=== PATIENT | female | born 1960 | race Caucasian/White ===

== ENCOUNTER → 2020-08-16 13:26 | Outpatient (BNVA) | payer OTHER, SELFPAY | PROVIDERS: PCP Internal Medicine; Referring Provider Internal Medicine; Visit Provider Internal Medicine | DX: I82.503 Chronic embolism and thrombosis of unspecified deep veins of lower extremity, bilateral (principal); Z51.81 Encounter for therapeutic drug level monitoring; Z79.01 Long term (current) use of anticoagulants | CPT/HCPCS: 85610; 99211 ==

== ENCOUNTER → 2020-09-13 09:46 | Outpatient (BNVA) | payer OTHER, SELFPAY | PROVIDERS: PCP Internal Medicine; Visit Provider Internal Medicine | DX: I82.503 Chronic embolism and thrombosis of unspecified deep veins of lower extremity, bilateral (principal); Z51.81 Encounter for therapeutic drug level monitoring; Z79.01 Long term (current) use of anticoagulants | CPT/HCPCS: 85610; 99211 ==

== ENCOUNTER → 2020-10-11 09:40 | Outpatient (BNVA) | payer OTHER, SELFPAY | PROVIDERS: PCP Internal Medicine; Visit Provider Internal Medicine | DX: I82.503 Chronic embolism and thrombosis of unspecified deep veins of lower extremity, bilateral (principal); Z51.81 Encounter for therapeutic drug level monitoring; Z79.01 Long term (current) use of anticoagulants | CPT/HCPCS: 85610; 99211 ==

== ENCOUNTER → 2020-10-25 08:12 | Outpatient (BNV) | payer MEDICARE, OTHER, SELFPAY | PROVIDERS: PCP Internal Medicine; Visit Provider Internal Medicine | DX: D75.1 Secondary polycythemia (principal) | CPT/HCPCS: 99213; 99214 ==

== ENCOUNTER 2020-11-01 07:10 | Day surgery (SDC) | payer OTHER, SELFPAY ==
[2020-10-25 13:25] VITALS: BMI 39.5
--- NOTE | 2020-10-29 11:49 | P.CONAN_ITS ---
HPI - Anesthesia Eval Consult details Narrative: 59yo F for Colonoscopy H/O DVT with anticoag. On coumadin. To do Lovenox bridge. [facility] Past Medical History Medical History Arthritis Mccormack esophagus Bronchial asthma Colon polyps Current use of anticoagulant therapy Diabetes DVT (deep venous thrombosis) Elevated cholesterol HTN (hypertension) Low back pain Polycythemia Family History Family History Father Heart disease Afib Heart attack Maternal Grandmother Lung cancer Maternal Grandfather Prostate CA Paternal Grandmother Heart attack Paternal Grandfather Heart attack Surgical History Surgical History History of appendectomy History of delivery History of cholecystectomy History of hysterectomy Hx of colonoscopy Social History Social History Smoking Status: Former smoker Tobacco Type: Cigarette Meds Allergies Allergy/AdvReac Type Severity Reaction Status Date / Time droperidol [From INAPSINE] Allergy Severe Anaphylaxis Verified 11/04/20 10:39 metformin [METFORMIN] Allergy Severe DIZZINESS Verified 11/04/20 10:39 AND NAUSEA penicillin V Allergy Intermediate RASH Verified 11/04/20 10:39 codeine [CODEINE] Allergy Unknown Rash Verified 11/04/20 10:39 egg [EGG] Allergy Unknown Nausea and Verified 11/04/20 10:39 Vomiting latex [LATEX] Allergy Unknown HIVES Verified 11/04/20 10:39 Hydrocodone Bitartrate Allergy Intermediate Rash Uncoded 10/25/20 13:22 Home Medications Medication Instructions Recorded Confirmed Type atorvastatin 2 tab PO DAILY 10/25/20 11/08/20 History celecoxib 1 cap PO BID 10/25/20 11/08/20 History cetirizine 10 mg PO DAILY 10/25/20 11/08/20 History cholecalciferol (vitamin D3) 50 mcg PO DAILY 10/25/20 11/08/20 History [Vitamin D3] dulaglutide [Trulicity] 1.5 mg SUBCUT QWEEK 10/25/20 11/08/20 History empagliflozin [Jardiance] 25 mg PO DAILY 10/25/20 11/08/20 History fluticasone propionate 2 spray INTRANASAL DAILY 10/25/20 11/08/20 History lisinopril 1 tab PO DAILY 10/25/20 11/08/20 History omeprazole 1 cap PO DAILY 10/25/20 11/08/20 History blood sugar diagnostic #10 ea 11/08/20 11/08/20 History Exam Exam Date and Time: October 29, 2020 1149 Height,Weight and Vital Signs: Height 5 ft 9 in Weight 121.563 kg Pertinent Lab Results Pertinent Lab Results: Laboratory Tests 10/25/20 10/25/20 08:42 08:42 WBC 10.8 Hgb 16.0 Hct 47.7 H Plt Count 237 Sodium 135 Potassium 4.8 Chloride 105 Carbon Dioxide 18 L BUN 18 H Creatinine 0.85 Assessment and Plan Assessment Anesthesia Assessment: Chart Reviewed
[2020-11-01 07:23] LABS: Glucose, Whole Blood 167 mg/dL (60-115)
--- NOTE | 2020-11-01 07:26 | P.CONAN_ITS ---
[facility] Past Medical History Medical History Arthritis Mccormack esophagus Bronchial asthma Colon polyps Current use of anticoagulant therapy Diabetes DVT (deep venous thrombosis) Elevated cholesterol HTN (hypertension) Low back pain Polycythemia Family History Family History Father Heart disease Afib Heart attack Maternal Grandmother Lung cancer Maternal Grandfather Prostate CA Paternal Grandmother Heart attack Paternal Grandfather Heart attack Surgical History Surgical History History of appendectomy History of delivery History of cholecystectomy History of hysterectomy Hx of colonoscopy Social History Social History Smoking Status: Former smoker Tobacco Type: Cigarette Smoking Quit Date: 2017 Advance Directives: No Advance Directives Information Provided: No Advance Directives on File: No Meds Allergies Allergy/AdvReac Type Severity Reaction Status Date / Time droperidol [From INAPSINE] Allergy Severe Anaphylaxis Verified 10/25/20 13:22 metformin [METFORMIN] Allergy Severe DIZZINESS Verified 10/25/20 13:22 AND NAUSEA penicillin V Allergy Intermediate RASH Verified 10/25/20 13:22 codeine [CODEINE] Allergy Unknown Rash Verified 10/25/20 13:22 egg [EGG] Allergy Unknown Nausea and Verified 10/25/20 13:22 Vomiting latex [LATEX] Allergy Unknown HIVES Verified 10/25/20 13:22 Hydrocodone Bitartrate Allergy Intermediate Rash Uncoded 10/25/20 13:22 Home Medications Medication Instructions Recorded Confirmed Type atorvastatin 2 tab PO DAILY 10/25/20 10/25/20 History celecoxib 1 cap PO BID 10/25/20 10/25/20 History cetirizine 10 mg PO DAILY 10/25/20 10/25/20 History cholecalciferol (vitamin D3) 50 mcg PO DAILY 10/25/20 10/25/20 History [Vitamin D3] dulaglutide [Trulicity] 1.5 mg SUBCUT QWEEK 10/25/20 10/25/20 History empagliflozin [Jardiance] 25 mg PO DAILY 10/25/20 10/25/20 History fluticasone propionate 2 spray INTRANASAL DAILY 10/25/20 10/25/20 History lisinopril 1 tab PO DAILY 10/25/20 10/25/20 History omeprazole 1 cap PO DAILY 10/25/20 10/25/20 History Exam Exam Date and Time: November 01, [id number] Height,Weight and Vital Signs: Height 5 ft 9 in Weight 121.563 kg Pertinent Lab Results Pertinent Lab Results: Laboratory Tests 11/01/20 07:20 POC Glucose 167 H Airway Mallampati Class: II TM Dist: >3cm Neck ROM: Full Denture: Upper Heart: RRR Lungs: CTA
--- NOTE | 2020-11-01 07:28 | P.CONAN_ITS ---
[facility] Past Medical History Medical History Arthritis Mccormack esophagus Bronchial asthma Colon polyps Current use of anticoagulant therapy Diabetes DVT (deep venous thrombosis) Elevated cholesterol HTN (hypertension) Low back pain Polycythemia Family History Family History Father Heart disease Afib Heart attack Maternal Grandmother Lung cancer Maternal Grandfather Prostate CA Paternal Grandmother Heart attack Paternal Grandfather Heart attack Surgical History Surgical History History of appendectomy History of delivery History of cholecystectomy History of hysterectomy Hx of colonoscopy Social History Social History Smoking Status: Former smoker Tobacco Type: Cigarette Smoking Quit Date: 2017 Advance Directives: No Advance Directives Information Provided: No Advance Directives on File: No Meds Allergies Allergy/AdvReac Type Severity Reaction Status Date / Time droperidol [From INAPSINE] Allergy Severe Anaphylaxis Verified 10/25/20 13:22 metformin [METFORMIN] Allergy Severe DIZZINESS Verified 10/25/20 13:22 AND NAUSEA penicillin V Allergy Intermediate RASH Verified 10/25/20 13:22 codeine [CODEINE] Allergy Unknown Rash Verified 10/25/20 13:22 egg [EGG] Allergy Unknown Nausea and Verified 10/25/20 13:22 Vomiting latex [LATEX] Allergy Unknown HIVES Verified 10/25/20 13:22 Hydrocodone Bitartrate Allergy Intermediate Rash Uncoded 10/25/20 13:22 Home Medications Medication Instructions Recorded Confirmed Type atorvastatin 2 tab PO DAILY 10/25/20 10/25/20 History celecoxib 1 cap PO BID 10/25/20 10/25/20 History cetirizine 10 mg PO DAILY 10/25/20 10/25/20 History cholecalciferol (vitamin D3) 50 mcg PO DAILY 10/25/20 10/25/20 History [Vitamin D3] dulaglutide [Trulicity] 1.5 mg SUBCUT QWEEK 10/25/20 10/25/20 History empagliflozin [Jardiance] 25 mg PO DAILY 10/25/20 10/25/20 History fluticasone propionate 2 spray INTRANASAL DAILY 10/25/20 10/25/20 History lisinopril 1 tab PO DAILY 10/25/20 10/25/20 History omeprazole 1 cap PO DAILY 10/25/20 10/25/20 History Exam Exam Date and Time: November 01, 2020727 Height,Weight and Vital Signs: Height 5 ft 9 in Weight 121.563 kg Pertinent Lab Results Pertinent Lab Results: Laboratory Tests 11/01/20 07:20 POC Glucose 167 H Assessment and Plan Assessment Anesthesia Assessment: Anesthesia Plan Discussed and Chart Reviewed Final Anesthetic Review NPO: Yes ASA Class: III Final Preanesthetic Review: No Changes in Pt Med Stat, Meds/Allgs Chart Reviewed, Consent Obtained/Reviewed and Anes Risks/Benef Reviewed Patient Risk: Intermediate Procedure Risk: Low Anesthetic Plan Anesthetic Plan: MAC: Disposition: Standard PACU
[2020-11-01 07:38] VITALS: BP 154/78; PULSE 96; RESP 18; TEMP 36.2; O2SAT 95
[2020-11-01 07:52] LABS: Prothrombin Time 11.9 SEC (10.8-13.0)
[2020-11-01] MEDS: Lactated Ringers 1,000 ML 100 ML IVCONT (08:06)
[2020-11-01 09:57] VITALS: BP 98/57; PULSE 89; RESP 16; TEMP 37.2; O2SAT 95
--- NOTE | 2020-11-01 10:03 | PM.OP ---
Brief Operative Note Date of Service: 11/01/20 Pre-op diagnosis: Screening Post-op diagnosis: other (Colon polyp, Diverticulosis, Internal hemorrhoids) Procedure: Colonoscopy to cecum and TI with snare polypectomy and placement of 2 Resolution clips on proximal ascending colon polypectomy site Surgeon: Jean Carlos Martínez Anesthesia: MAC Estimated blood loss (mL): 3.0 Pathology: other (A. Proximal ascending colon polyp) Condition: stable Disposition: PACU
[2020-11-01 10:12] VITALS: BP 114/61; PULSE 75; RESP 18; TEMP 36.4; O2SAT 98
--- NOTE | 2020-11-01 10:20 | OP_ITS ---
SURGEON: Jean Carlos Martínez MD INDICATIONS: Full consent has been obtained from her for this, including risks of bleeding and perforation. PREOPERATIVE DIAGNOSIS: POSTOPERATIVE DIAGNOSIS: PROCEDURE PERFORMED: Colonoscopy to the cecum and terminal ileum with snare polypectomy and placement of 2 Resolution clips. ESTIMATED BLOOD LOSS: COMPLICATIONS: ANESTHESIA: Monitored anesthesia care. ASSISTANTS: SPECIMENS: PREOPERATIVE DIAGNOSES: Colorectal cancer screening and personal history of tubular adenoma of the colon. POSTOPERATIVE DIAGNOSES: Colorectal cancer screening and personal history of tubular adenoma of the colon, colon polyp, diverticulosis and internal hemorrhoids. DESCRIPTION OF PROCEDURE: The patient was placed in the left lateral decubitus position. The digital rectal exam revealed no abnormalities. The Olympus video pediatric colonoscope was entered into the rectum and advanced to the cecum with the assistance of abdominal wall pressure. Once in the cecum, I did identify normal-appearing cecal pouch with appendiceal orifice. The terminal ileum was cannulated and appeared normal. The scope was withdrawn back in the colon. The entire cecum appeared normal. The scope was then slowly withdrawn assessing all mucosal surfaces carefully. Preparation was excellent. The ileocecal valve appeared normal. The portion from which the polyp had been removed last year on the lip of the ileocecal valve closest to the ascending colon appeared normal. There was some scar visible, but I did not visualize any sign of residual polyp tissue. In the proximal ascending colon, was an approximately 6 to 8 mm polyp, which was snared and recovered by suction. The polypectomy site appeared clean, without any sign of residual polyp. I did place 2 clips on the area given the fact that she has to go back on her blood thinners. There was no bleeding. The area was irrigated and observed. I did not visualize any other polyps, colitis, nor angiodysplasia. There was a moderate amount of sigmoid diverticulosis. In the rectum, scope was retroflexed visualizing internal hemorrhoids, but no other pathology. The rectal mucosa appeared normal. The scope was straightened out and withdrawn from the patient. She tolerated the procedure well and was returned to the recovery area in stable condition. IMPRESSION: 1. Colon polyp, status post snare polypectomy, and placement of 2 Resolution clips in the proximal ascending colon. 2. Diverticulosis. 3. Internal hemorrhoids. PLAN: The results of the pathology will be checked. Given her previous history and today's findings, I would recommend a repeat colonoscopy in 2 years for further screening. She will otherwise see me on a p.r.n. basis. She was advised to resume her Coumadin at the normal dosage today and resume Lovenox tomorrow morning. She will then follow up with either the Coumadin Clinic or the Hematology Clinic regarding adjustment of the Coumadin and Lovenox as needed. MD MEENU Garcia/BEENA / [id number] MTDD
== END 2020-11-01 11:02 | disposition home or self-care (01) ==
PROVIDERS: Nurse Practitioner; PCP Internal Medicine; Visit Provider Internal Medicine
PROC: 0DJD8ZZ Inspection of Lower Intestinal Tract, Via Natural or Artificial Opening Endoscopic (ICD-10-PCS; CPT 45378; principal; 2020-11-01 08:30)
DX: Z12.11 Encounter for screening for malignant neoplasm of colon (principal); Z86.010 Personal history of colon polyps; D12.2 Benign neoplasm of ascending colon; K57.30 Diverticulosis of large intestine without perforation or abscess without bleeding; K64.8 Other hemorrhoids; K22.70 Barrett's esophagus without dysplasia; I10 Essential (primary) hypertension; E11.9 Type 2 diabetes mellitus without complications; J45.909 Unspecified asthma, uncomplicated; D45 Polycythemia vera; Z79.51 Long term (current) use of inhaled steroids; Z79.01 Long term (current) use of anticoagulants; Z79.84 Long term (current) use of oral hypoglycemic drugs; Z86.718 Personal history of other venous thrombosis and embolism; Z79.899 Other long term (current) drug therapy; Z90.49 Acquired absence of other specified parts of digestive tract; Z88.0 Allergy status to penicillin; Z88.8 Allergy status to other drugs, medicaments and biological substances; Z91.040 Latex allergy status; Z87.891 Personal history of nicotine dependence
CPT/HCPCS: 45385; 36415; 82947; 85610; 88305

== ENCOUNTER → 2020-11-04 10:11 | Outpatient (BNVA) | payer OTHER, SELFPAY | PROVIDERS: PCP Internal Medicine; Visit Provider Internal Medicine | DX: I82.503 Chronic embolism and thrombosis of unspecified deep veins of lower extremity, bilateral (principal); Z79.01 Long term (current) use of anticoagulants; Z51.81 Encounter for therapeutic drug level monitoring | CPT/HCPCS: 85610 ==

== ENCOUNTER → 2020-11-08 10:14 | Outpatient (BNVA) | payer OTHER, SELFPAY | PROVIDERS: PCP Internal Medicine; Visit Provider Internal Medicine | DX: I82.503 Chronic embolism and thrombosis of unspecified deep veins of lower extremity, bilateral (principal); Z51.81 Encounter for therapeutic drug level monitoring; Z79.01 Long term (current) use of anticoagulants | CPT/HCPCS: 85610; 99211 ==

== ENCOUNTER → 2020-11-10 09:15 | Outpatient (BNVA) | payer OTHER, SELFPAY | PROVIDERS: PCP Internal Medicine; Visit Provider Internal Medicine | DX: I82.503 Chronic embolism and thrombosis of unspecified deep veins of lower extremity, bilateral (principal); Z51.81 Encounter for therapeutic drug level monitoring; Z79.01 Long term (current) use of anticoagulants | CPT/HCPCS: 85610; 99211 ==

== ENCOUNTER → 2020-11-17 09:42 | Outpatient (BNVA) | payer OTHER, SELFPAY | PROVIDERS: PCP Internal Medicine; Visit Provider Internal Medicine | DX: I82.503 Chronic embolism and thrombosis of unspecified deep veins of lower extremity, bilateral (principal); Z51.81 Encounter for therapeutic drug level monitoring; Z79.01 Long term (current) use of anticoagulants | CPT/HCPCS: 85610; 99211 ==

== ENCOUNTER → 2020-11-25 09:41 | Outpatient (BNVA) | payer OTHER, SELFPAY | PROVIDERS: PCP Internal Medicine; Visit Provider Internal Medicine | DX: I82.503 Chronic embolism and thrombosis of unspecified deep veins of lower extremity, bilateral (principal); Z51.81 Encounter for therapeutic drug level monitoring; Z79.01 Long term (current) use of anticoagulants | CPT/HCPCS: 85610; 99211 ==

== ENCOUNTER → 2020-12-09 09:13 | Outpatient (BNVA) | payer OTHER, SELFPAY | PROVIDERS: PCP Internal Medicine; Visit Provider Internal Medicine | DX: I82.503 Chronic embolism and thrombosis of unspecified deep veins of lower extremity, bilateral (principal); Z51.81 Encounter for therapeutic drug level monitoring; Z79.01 Long term (current) use of anticoagulants | CPT/HCPCS: 85610; 99211 ==

== ENCOUNTER → 2020-12-30 09:21 | Outpatient (BNVA) | payer OTHER, SELFPAY | PROVIDERS: PCP Internal Medicine; Visit Provider Internal Medicine | DX: I82.503 Chronic embolism and thrombosis of unspecified deep veins of lower extremity, bilateral (principal); Z51.81 Encounter for therapeutic drug level monitoring; Z79.01 Long term (current) use of anticoagulants | CPT/HCPCS: 85610; 99211 ==

== ENCOUNTER → 2021-02-03 09:28 | Outpatient (BNVA) | payer OTHER, SELFPAY | PROVIDERS: PCP Internal Medicine; Visit Provider Internal Medicine | DX: I82.503 Chronic embolism and thrombosis of unspecified deep veins of lower extremity, bilateral (principal); Z51.81 Encounter for therapeutic drug level monitoring; Z79.01 Long term (current) use of anticoagulants | CPT/HCPCS: 85610; 99211 ==

== ENCOUNTER → 2021-02-17 10:17 | Outpatient (BNVA) | payer OTHER, SELFPAY | PROVIDERS: PCP Internal Medicine; Visit Provider Internal Medicine | DX: I82.503 Chronic embolism and thrombosis of unspecified deep veins of lower extremity, bilateral (principal); Z79.01 Long term (current) use of anticoagulants; Z51.81 Encounter for therapeutic drug level monitoring | CPT/HCPCS: 85610; 99211 ==

== ENCOUNTER → 2021-03-03 10:17 | Outpatient (BNVA) | payer OTHER, SELFPAY | PROVIDERS: PCP Internal Medicine; Visit Provider Internal Medicine | DX: I82.503 Chronic embolism and thrombosis of unspecified deep veins of lower extremity, bilateral (principal); Z79.01 Long term (current) use of anticoagulants; Z51.81 Encounter for therapeutic drug level monitoring | CPT/HCPCS: 85610; 99211 ==

== ENCOUNTER → 2021-04-05 09:12 | Outpatient (BNVA) | payer OTHER, SELFPAY | PROVIDERS: PCP Internal Medicine; Visit Provider Internal Medicine | DX: I82.503 Chronic embolism and thrombosis of unspecified deep veins of lower extremity, bilateral (principal); Z51.81 Encounter for therapeutic drug level monitoring; Z79.01 Long term (current) use of anticoagulants | CPT/HCPCS: 85610; 99211 ==

== ENCOUNTER → 2021-04-21 09:41 | Outpatient (BNVA) | payer OTHER, SELFPAY | PROVIDERS: PCP Internal Medicine; Visit Provider Internal Medicine | DX: I82.503 Chronic embolism and thrombosis of unspecified deep veins of lower extremity, bilateral (principal); Z51.81 Encounter for therapeutic drug level monitoring; Z79.01 Long term (current) use of anticoagulants | CPT/HCPCS: 85610; 99211 ==

== ENCOUNTER → 2021-05-11 09:44 | Outpatient (BNVA) | payer OTHER, SELFPAY | PROVIDERS: PCP Internal Medicine; Visit Provider Internal Medicine | DX: I82.503 Chronic embolism and thrombosis of unspecified deep veins of lower extremity, bilateral (principal); Z51.81 Encounter for therapeutic drug level monitoring; Z79.01 Long term (current) use of anticoagulants | CPT/HCPCS: 85610; 99211 ==

== ENCOUNTER → 2021-05-23 09:54 | Outpatient (BNVA) | payer OTHER, SELFPAY | PROVIDERS: PCP Internal Medicine; Visit Provider Internal Medicine | DX: I82.503 Chronic embolism and thrombosis of unspecified deep veins of lower extremity, bilateral (principal); Z51.81 Encounter for therapeutic drug level monitoring; Z79.01 Long term (current) use of anticoagulants | CPT/HCPCS: 85610; 99211 ==

== ENCOUNTER → 2021-06-06 09:47 | Outpatient (BNVA) | payer OTHER, SELFPAY | PROVIDERS: PCP Internal Medicine; Visit Provider Internal Medicine | DX: I82.509 Chronic embolism and thrombosis of unspecified deep veins of unspecified lower extremity (principal); Z51.81 Encounter for therapeutic drug level monitoring; Z79.01 Long term (current) use of anticoagulants | CPT/HCPCS: 85610; 99211 ==

== ENCOUNTER → 2021-06-21 09:50 | Outpatient (BNVA) | payer OTHER, SELFPAY | PROVIDERS: PCP Internal Medicine; Visit Provider Internal Medicine | DX: I82.503 Chronic embolism and thrombosis of unspecified deep veins of lower extremity, bilateral (principal); Z79.01 Long term (current) use of anticoagulants; Z51.81 Encounter for therapeutic drug level monitoring | CPT/HCPCS: 85610; 99211 ==

== ENCOUNTER → 2021-07-19 09:45 | Outpatient (BNVA) | payer OTHER, SELFPAY | PROVIDERS: PCP Internal Medicine; Visit Provider Internal Medicine | DX: I82.503 Chronic embolism and thrombosis of unspecified deep veins of lower extremity, bilateral (principal); Z51.81 Encounter for therapeutic drug level monitoring; Z79.01 Long term (current) use of anticoagulants | CPT/HCPCS: 85610; 99211 ==

== ENCOUNTER → 2021-08-16 09:41 | Outpatient (BNVA) | payer OTHER, SELFPAY | PROVIDERS: PCP Internal Medicine; Visit Provider Internal Medicine | DX: I82.503 Chronic embolism and thrombosis of unspecified deep veins of lower extremity, bilateral (principal); Z51.81 Encounter for therapeutic drug level monitoring; Z79.01 Long term (current) use of anticoagulants | CPT/HCPCS: 85610; 99211 ==

== ENCOUNTER → 2021-09-13 09:44 | Outpatient (BNVA) | payer OTHER, SELFPAY | PROVIDERS: PCP Internal Medicine; Visit Provider Internal Medicine | DX: I82.403 Acute embolism and thrombosis of unspecified deep veins of lower extremity, bilateral (principal); Z51.81 Encounter for therapeutic drug level monitoring; Z79.01 Long term (current) use of anticoagulants | CPT/HCPCS: 85610; 99211 ==

== ENCOUNTER → 2021-10-11 09:58 | Outpatient (BNVA) | payer OTHER, SELFPAY | PROVIDERS: PCP Internal Medicine; Visit Provider Internal Medicine | DX: I82.503 Chronic embolism and thrombosis of unspecified deep veins of lower extremity, bilateral (principal); Z51.81 Encounter for therapeutic drug level monitoring; Z79.01 Long term (current) use of anticoagulants | CPT/HCPCS: 85610; 99211 ==

== ENCOUNTER → 2021-11-09 09:44 | Outpatient (BNVA) | payer OTHER, SELFPAY | PROVIDERS: PCP Internal Medicine; Visit Provider Internal Medicine | DX: I82.503 Chronic embolism and thrombosis of unspecified deep veins of lower extremity, bilateral (principal); Z51.81 Encounter for therapeutic drug level monitoring; Z79.01 Long term (current) use of anticoagulants | CPT/HCPCS: 85610; 99211 ==

== ENCOUNTER → 2021-12-07 09:55 | Outpatient (BNVA) | payer OTHER, SELFPAY | PROVIDERS: PCP Internal Medicine; Visit Provider Internal Medicine | DX: I82.503 Chronic embolism and thrombosis of unspecified deep veins of lower extremity, bilateral (principal); Z51.81 Encounter for therapeutic drug level monitoring; Z79.01 Long term (current) use of anticoagulants | CPT/HCPCS: 85610; 99211 ==

== ENCOUNTER → 2022-01-04 10:03 | Outpatient (BNVA) | payer OTHER, SELFPAY | PROVIDERS: PCP Internal Medicine; Visit Provider Internal Medicine | DX: I82.503 Chronic embolism and thrombosis of unspecified deep veins of lower extremity, bilateral (principal); Z51.81 Encounter for therapeutic drug level monitoring; Z79.01 Long term (current) use of anticoagulants | CPT/HCPCS: 85610; 99211 ==

== ENCOUNTER → 2022-01-18 10:20 | Outpatient (BNVA) | payer OTHER, SELFPAY | PROVIDERS: PCP Internal Medicine; Visit Provider Internal Medicine | DX: I82.503 Chronic embolism and thrombosis of unspecified deep veins of lower extremity, bilateral (principal); Z51.81 Encounter for therapeutic drug level monitoring; Z79.01 Long term (current) use of anticoagulants | CPT/HCPCS: 85610; 99211 ==

== ENCOUNTER → 2022-02-15 10:11 | Outpatient (BNVA) | payer OTHER, SELFPAY | PROVIDERS: PCP Internal Medicine; Visit Provider Internal Medicine | DX: I82.503 Chronic embolism and thrombosis of unspecified deep veins of lower extremity, bilateral (principal); Z51.81 Encounter for therapeutic drug level monitoring; Z79.01 Long term (current) use of anticoagulants | CPT/HCPCS: 85610; 99211 ==

== ENCOUNTER → 2022-03-15 10:05 | Outpatient (BNVA) | payer OTHER, SELFPAY | PROVIDERS: PCP Internal Medicine; Visit Provider Internal Medicine | DX: I82.503 Chronic embolism and thrombosis of unspecified deep veins of lower extremity, bilateral (principal); Z79.01 Long term (current) use of anticoagulants; Z51.81 Encounter for therapeutic drug level monitoring | CPT/HCPCS: 85610; 99211 ==

== ENCOUNTER → 2022-04-12 09:46 | Outpatient (BNVA) | payer OTHER, SELFPAY | PROVIDERS: PCP Internal Medicine; Visit Provider Internal Medicine | DX: I82.503 Chronic embolism and thrombosis of unspecified deep veins of lower extremity, bilateral (principal); Z79.01 Long term (current) use of anticoagulants; Z51.81 Encounter for therapeutic drug level monitoring | CPT/HCPCS: 85610; 99211 ==

== ENCOUNTER 2022-05-04 14:16 | Outpatient (REF) | payer OTHER, SELFPAY | END 2022-05-04 14:17 | disposition home or self-care (01) | LOC: HO.BBR 14:16 | PROVIDERS: Visit Provider Internal Medicine | DX: D75.1 Secondary polycythemia (principal) | CPT/HCPCS: 85018; 99195 ==

== ENCOUNTER → 2022-05-10 09:52 | Outpatient (BNVA) | payer OTHER, SELFPAY | PROVIDERS: PCP Internal Medicine; Visit Provider Internal Medicine | DX: I82.503 Chronic embolism and thrombosis of unspecified deep veins of lower extremity, bilateral (principal); Z51.81 Encounter for therapeutic drug level monitoring; Z79.01 Long term (current) use of anticoagulants | CPT/HCPCS: 85610; 99211 ==

== ENCOUNTER 2022-05-18 13:44 | Outpatient (REF) | payer OTHER, SELFPAY | END 2022-05-18 13:45 | disposition home or self-care (01) | LOC: HO.BBR 13:44 | PROVIDERS: Visit Provider Internal Medicine | DX: D75.1 Secondary polycythemia (principal) | CPT/HCPCS: 85018; 99195 ==

== ENCOUNTER → 2022-06-07 09:49 | Outpatient (BNVA) | payer OTHER, SELFPAY | PROVIDERS: PCP Internal Medicine; Visit Provider Internal Medicine | DX: I82.503 Chronic embolism and thrombosis of unspecified deep veins of lower extremity, bilateral (principal); Z51.81 Encounter for therapeutic drug level monitoring; Z79.01 Long term (current) use of anticoagulants | CPT/HCPCS: 85610; 99211 ==

== ENCOUNTER → 2022-07-05 09:52 | Outpatient (BNVA) | payer OTHER, SELFPAY | PROVIDERS: PCP Internal Medicine; Visit Provider Internal Medicine | DX: I82.503 Chronic embolism and thrombosis of unspecified deep veins of lower extremity, bilateral (principal); Z51.81 Encounter for therapeutic drug level monitoring; Z79.01 Long term (current) use of anticoagulants | CPT/HCPCS: 85610; 99211 ==

== ENCOUNTER → 2022-08-03 11:03 | Outpatient (BNVA) | payer OTHER, SELFPAY | PROVIDERS: PCP Internal Medicine; Visit Provider Internal Medicine | DX: I82.503 Chronic embolism and thrombosis of unspecified deep veins of lower extremity, bilateral (principal); Z51.81 Encounter for therapeutic drug level monitoring; Z79.01 Long term (current) use of anticoagulants | CPT/HCPCS: 85610; 99211 ==

== ENCOUNTER → 2022-08-23 09:49 | Outpatient (BNVA) | payer OTHER, SELFPAY | PROVIDERS: PCP Internal Medicine; Visit Provider Internal Medicine | DX: I82.503 Chronic embolism and thrombosis of unspecified deep veins of lower extremity, bilateral (principal); Z79.01 Long term (current) use of anticoagulants; Z51.81 Encounter for therapeutic drug level monitoring | CPT/HCPCS: 85610; 99211 ==

== ENCOUNTER → 2022-09-06 09:47 | Outpatient (BNVA) | payer OTHER, SELFPAY | PROVIDERS: PCP Internal Medicine; Visit Provider Internal Medicine | DX: I82.503 Chronic embolism and thrombosis of unspecified deep veins of lower extremity, bilateral (principal); Z51.81 Encounter for therapeutic drug level monitoring; Z79.01 Long term (current) use of anticoagulants | CPT/HCPCS: 85610; 99211 ==

== ENCOUNTER → 2022-09-20 09:36 | Outpatient (BNVA) | payer OTHER, SELFPAY | PROVIDERS: PCP Internal Medicine; Visit Provider Internal Medicine | DX: I82.503 Chronic embolism and thrombosis of unspecified deep veins of lower extremity, bilateral (principal); Z51.81 Encounter for therapeutic drug level monitoring; Z79.01 Long term (current) use of anticoagulants | CPT/HCPCS: 85610; 99211 ==

== ENCOUNTER → 2022-10-04 09:56 | Outpatient (BNVA) | payer OTHER, SELFPAY | PROVIDERS: PCP Internal Medicine; Visit Provider Internal Medicine | DX: I82.503 Chronic embolism and thrombosis of unspecified deep veins of lower extremity, bilateral (principal); Z51.81 Encounter for therapeutic drug level monitoring; Z79.01 Long term (current) use of anticoagulants | CPT/HCPCS: 85610; 99211 ==

== ENCOUNTER → 2022-10-25 10:11 | Outpatient (BNVA) | payer OTHER, SELFPAY | PROVIDERS: PCP Internal Medicine; Visit Provider Internal Medicine | DX: I82.503 Chronic embolism and thrombosis of unspecified deep veins of lower extremity, bilateral (principal); Z79.01 Long term (current) use of anticoagulants; Z51.81 Encounter for therapeutic drug level monitoring | CPT/HCPCS: 85610; 99211 ==

== ENCOUNTER → 2022-11-22 09:47 | Outpatient (BNVA) | payer OTHER, SELFPAY | PROVIDERS: PCP Internal Medicine; Visit Provider Internal Medicine | DX: I82.503 Chronic embolism and thrombosis of unspecified deep veins of lower extremity, bilateral (principal); Z51.81 Encounter for therapeutic drug level monitoring; Z79.01 Long term (current) use of anticoagulants | CPT/HCPCS: 85610; 99211 ==

== ENCOUNTER → 2022-12-20 10:04 | Outpatient (BNVA) | payer OTHER, SELFPAY | PROVIDERS: PCP Internal Medicine; Visit Provider Internal Medicine | DX: I82.503 Chronic embolism and thrombosis of unspecified deep veins of lower extremity, bilateral (principal); Z51.81 Encounter for therapeutic drug level monitoring; Z79.01 Long term (current) use of anticoagulants | CPT/HCPCS: 85610; 99211 ==

== ENCOUNTER → 2023-01-17 10:04 | Outpatient (BNVA) | payer OTHER, SELFPAY | PROVIDERS: PCP Internal Medicine; Visit Provider Internal Medicine | DX: I82.503 Chronic embolism and thrombosis of unspecified deep veins of lower extremity, bilateral (principal); Z51.81 Encounter for therapeutic drug level monitoring; Z79.01 Long term (current) use of anticoagulants | CPT/HCPCS: 85610; 99211 ==

== ENCOUNTER → 2023-02-14 09:52 | Outpatient (BNVA) | payer OTHER, SELFPAY | PROVIDERS: PCP Internal Medicine; Visit Provider Internal Medicine | DX: I82.503 Chronic embolism and thrombosis of unspecified deep veins of lower extremity, bilateral (principal); Z51.81 Encounter for therapeutic drug level monitoring; Z79.01 Long term (current) use of anticoagulants | CPT/HCPCS: 85610; 99211 ==

== ENCOUNTER → 2023-03-15 09:40 | Outpatient (BNVA) | payer OTHER, SELFPAY | PROVIDERS: PCP Internal Medicine; Visit Provider Internal Medicine | DX: I82.503 Chronic embolism and thrombosis of unspecified deep veins of lower extremity, bilateral (principal); Z51.81 Encounter for therapeutic drug level monitoring; Z79.01 Long term (current) use of anticoagulants | CPT/HCPCS: 85610; 99211 ==

== ENCOUNTER → 2023-04-11 09:58 | Outpatient (BNVA) | payer OTHER, SELFPAY | PROVIDERS: PCP Internal Medicine; Visit Provider Internal Medicine | DX: I82.503 Chronic embolism and thrombosis of unspecified deep veins of lower extremity, bilateral (principal); Z51.81 Encounter for therapeutic drug level monitoring; Z79.01 Long term (current) use of anticoagulants | CPT/HCPCS: 85610; 99211 ==

== ENCOUNTER → 2023-05-09 09:41 | Outpatient (BNVA) | payer OTHER, SELFPAY | PROVIDERS: PCP Internal Medicine; Visit Provider Internal Medicine | DX: Z51.81 Encounter for therapeutic drug level monitoring (principal); Z79.01 Long term (current) use of anticoagulants; I82.503 Chronic embolism and thrombosis of unspecified deep veins of lower extremity, bilateral | CPT/HCPCS: 85610; 99211 ==

== ENCOUNTER 2023-06-06 09:47 | Outpatient (AMB) | payer OTHER, SELFPAY ==
--- NOTE | 2023-06-06 10:04 | MHC.OFFVISCO ---
Intake Intake Visit Reasons: Anticoagulation Allergies droperidol [From INAPSINE] Allergy (Severe, Verified 06/06/23 10:00) Anaphylaxis metformin [METFORMIN] Allergy (Severe, Verified 06/06/23 10:00) DIZZINESS AND NAUSEA penicillin V Allergy (Intermediate, Verified 06/06/23 10:00) RASH codeine [CODEINE] Allergy (Unknown, Verified 06/06/23 10:00) Rash egg [EGG] Allergy (Unknown, Verified 06/06/23 10:00) Nausea and Vomiting latex [LATEX] Allergy (Unknown, Verified 06/06/23 10:00) HIVES Hydrocodone Bitartrate Allergy (Intermediate, Uncoded 06/06/23 10:00) Rash Medication List - Last Reconciled 06/06/23 by Gianna Heard RN ammonium lactate 12% 1 appl topical BID atorvastatin 40 mg PO DAILY blood sugar diagnostic As directed celecoxib 1 cap PO BID cetirizine 10 mg PO DAILY cholecalciferol (vitamin D3) (Vitamin D3) 50 mcg PO DAILY dulaglutide (Trulicity) 3 mg subcut QWEEK empagliflozin 25 mg PO DAILY fluticasone propionate 50 mcg/actuation 2 sprays intranasal DAILY lisinopril 10 mg PO DAILY omeprazole 1 cap PO DAILY urea 20% 20 appl topical DAILY warfarin See Protocol 5MG X4DAYS/7.5MG MWF; Nursing Note INR: 2.2- in therapeutic range Medications and supplements reviewed- no changes No changes in health, diet, medications, or supplements, Denies any signs and symptoms of bleeding or bruising or clotting. Bleeding, bruising, clotting discussed Nutritional guidance given Dose: 7.5mg x 3, 5mg x 4 F/U INR: 4 weeks Patient verbalizes understanding of instructions given Anti-Coag Initial Assessment Social Hx Patient Tobacco Use Status: Former Tobacco user Quit Date: 10/25/2018 Smoking packs per day: 1 alcohol intake: former Alcohol intake frequency: former alcohol drinker Coding Level of Care Code Est Patient Level 1 Diagnoses Current use of anticoagulant therapy Z79.01 Assessment & Plan Assessment & Plan (1) Current use of anticoagulant therapy: Code(s): Z79.01 - [facility] (current) use of anticoagulants
[2023-06-06 10:06] LABS: Prothrombin Time Whole Bld POC 25.9 sec (11.1-13.5); ~PT, ~INR - Anti Coag Clinic 2.2 (0.9-1.1)
== END 2023-06-06 10:29 | disposition home or self-care (01) ==
LOC: HO.ACS 09:47
PROVIDERS: PCP Internal Medicine; Visit Provider Internal Medicine
DX: Z79.01 Long term (current) use of anticoagulants (principal)

== ENCOUNTER → 2023-06-06 09:47 | Outpatient (BNVA) | payer OTHER, SELFPAY | PROVIDERS: PCP Internal Medicine; Visit Provider Internal Medicine | DX: Z51.81 Encounter for therapeutic drug level monitoring (principal); Z79.01 Long term (current) use of anticoagulants; I82.503 Chronic embolism and thrombosis of unspecified deep veins of lower extremity, bilateral | CPT/HCPCS: 85610; 99211 ==

== ENCOUNTER 2023-07-04 09:38 | Outpatient (AMB) | payer OTHER, SELFPAY ==
[2023-07-04 09:48] LABS: Prothrombin Time Whole Bld POC 21.9 sec (11.1-13.5); ~PT, ~INR - Anti Coag Clinic 1.8 (0.9-1.1)
--- NOTE | 2023-07-04 09:53 | MHC.OFFVISCO ---
Intake Intake Visit Reasons: Anticoagulation Allergies droperidol [From INAPSINE] Allergy (Severe, Verified 07/04/23 09:41) Anaphylaxis metformin [METFORMIN] Allergy (Severe, Verified 07/04/23 09:41) DIZZINESS AND NAUSEA penicillin V Allergy (Intermediate, Verified 07/04/23 09:41) RASH codeine [CODEINE] Allergy (Unknown, Verified 07/04/23 09:41) Rash egg [EGG] Allergy (Unknown, Verified 07/04/23 09:41) Nausea and Vomiting latex [LATEX] Allergy (Unknown, Verified 07/04/23 09:41) HIVES Hydrocodone Bitartrate Allergy (Intermediate, Uncoded 06/06/23 10:00) Rash Medication List - Last Reconciled 07/04/23 by Rebecca Crook RN ammonium lactate 12% 1 appl topical BID atorvastatin 40 mg PO DAILY blood sugar diagnostic As directed celecoxib 1 cap PO BID cetirizine 10 mg PO DAILY cholecalciferol (vitamin D3) (Vitamin D3) 50 mcg PO DAILY dulaglutide (Trulicity) 3 mg subcut QWEEK empagliflozin 25 mg PO DAILY fluticasone propionate 50 mcg/actuation 2 sprays intranasal DAILY lisinopril 10 mg PO DAILY omeprazole 1 cap PO DAILY urea 20% 20 appl topical DAILY warfarin See Protocol 5MG X4DAYS/7.5MG MWF; Nursing Note NO CP,SOB,DIET/MED CHANGES,FALLS OR SX OF BLEEDING. BOOST TO 10MGM TODAY THEN RESUME USUAL DOSE AND FOLLOW-UP IN 4 WEEKS. GOOD UNDERSTANDING OF DOSING INSTR. Anti-Coag Initial Assessment Social Hx Patient Tobacco Use Status: Former Tobacco user Quit Date: 10/25/2018 Smoking packs per day: 1 alcohol intake: former Alcohol intake frequency: former alcohol drinker Coding Level of Care Code Est Patient Level 1 Diagnoses Current use of anticoagulant therapy Z79.01 Assessment & Plan Assessment & Plan (1) Current use of anticoagulant therapy: Code(s): Z79.01 - [facility] (current) use of anticoagulants
== END 2023-07-04 09:55 | disposition home or self-care (01) ==
LOC: HO.ACS 09:38
PROVIDERS: PCP Internal Medicine; Visit Provider Internal Medicine
DX: Z79.01 Long term (current) use of anticoagulants (principal)

== ENCOUNTER → 2023-07-04 09:38 | Outpatient (BNVA) | payer OTHER, SELFPAY | PROVIDERS: PCP Internal Medicine; Visit Provider Internal Medicine | DX: I82.503 Chronic embolism and thrombosis of unspecified deep veins of lower extremity, bilateral (principal); Z51.81 Encounter for therapeutic drug level monitoring; Z79.01 Long term (current) use of anticoagulants | CPT/HCPCS: 85610; 99211 ==

== ENCOUNTER 2023-08-01 09:44 | Outpatient (AMB) | payer OTHER, SELFPAY ==
--- NOTE | 2023-08-01 09:53 | MHC.OFFVISCO ---
Intake Intake Visit Reasons: Anticoagulation Allergies droperidol [From INAPSINE] Allergy (Severe, Verified 08/01/23 09:49) Anaphylaxis metformin [METFORMIN] Allergy (Severe, Verified 08/01/23 09:49) DIZZINESS AND NAUSEA penicillin V Allergy (Intermediate, Verified 08/01/23 09:49) RASH codeine [CODEINE] Allergy (Unknown, Verified 08/01/23 09:49) Rash egg [EGG] Allergy (Unknown, Verified 08/01/23 09:49) Nausea and Vomiting latex [LATEX] Allergy (Unknown, Verified 08/01/23 09:49) HIVES Hydrocodone Bitartrate Allergy (Intermediate, Uncoded 08/01/23 09:49) Rash Medication List - Last Reconciled 08/01/23 by Gianna Heard RN ammonium lactate 12% 1 appl topical BID atorvastatin 40 mg PO DAILY blood sugar diagnostic As directed celecoxib 1 cap PO BID cetirizine 10 mg PO DAILY cholecalciferol (vitamin D3) (Vitamin D3) 50 mcg PO DAILY dulaglutide (Trulicity) 3 mg subcut QWEEK empagliflozin 25 mg PO DAILY fluticasone propionate 50 mcg/actuation 2 sprays intranasal DAILY lisinopril 10 mg PO DAILY omeprazole 1 cap PO DAILY urea 20% 20 appl topical DAILY warfarin See Protocol 5MG X4DAYS/7.5MG MWF; Nursing Note INR: 2.4- in therapeutic range Medications and supplements reviewed No changes in health, diet, medications, or supplements, Denies any signs and symptoms of bleeding or bruising or clotting. Bleeding, bruising, clotting discussed Nutritional guidance given Dose: 7.5mg x 3, 5mg x 4 F/U INR: 4 weeks Patient verbalizes understanding of instructions given pt states colonoscopy scheduled for 10/26/23- she states per hematology she does not require lovenox and will be a 3 day hold of warfarin Anti-Coag Initial Assessment Social Hx Patient Tobacco Use Status: Former Tobacco user Quit Date: 10/25/2018 Smoking packs per day: 1 alcohol intake: former Alcohol intake frequency: former alcohol drinker Coding Level of Care Code Est Patient Level 1 Diagnoses Current use of anticoagulant therapy Z79.01 Results AMB INR Fingerstick AMB INR Fingerstick 2.4 Last Edit by Gianna Heard RN on 08/01/23 09:55 Assessment & Plan Assessment & Plan (1) Current use of anticoagulant therapy: Code(s): Z79.01 - [facility] (current) use of anticoagulants
[2023-08-01 09:55] LABS: Prothrombin Time Whole Bld POC 28.7 sec (11.1-13.5); ~PT, ~INR - Anti Coag Clinic 2.4 (0.9-1.1)
== END 2023-08-01 10:14 | disposition home or self-care (01) ==
LOC: HO.ACS 09:44
PROVIDERS: PCP Internal Medicine; Visit Provider Internal Medicine
DX: Z79.01 Long term (current) use of anticoagulants (principal)

== ENCOUNTER → 2023-08-01 09:44 | Outpatient (BNVA) | payer OTHER, SELFPAY | PROVIDERS: PCP Internal Medicine; Visit Provider Internal Medicine | DX: I82.503 Chronic embolism and thrombosis of unspecified deep veins of lower extremity, bilateral (principal); Z51.81 Encounter for therapeutic drug level monitoring; Z79.01 Long term (current) use of anticoagulants | CPT/HCPCS: 85610; 99211 ==

== ENCOUNTER 2023-08-29 09:41 | Outpatient (AMB) | payer OTHER, SELFPAY ==
--- NOTE | 2023-08-29 10:12 | MHC.OFFVISCO ---
Intake Intake Visit Reasons: Anticoagulation Allergies droperidol [From INAPSINE] Allergy (Severe, Verified 08/29/23 10:03) Anaphylaxis metformin [METFORMIN] Allergy (Severe, Verified 08/29/23 10:03) DIZZINESS AND NAUSEA penicillin V Allergy (Intermediate, Verified 08/29/23 10:03) RASH codeine [CODEINE] Allergy (Unknown, Verified 08/29/23 10:03) Rash egg [EGG] Allergy (Unknown, Verified 08/29/23 10:03) Nausea and Vomiting latex [LATEX] Allergy (Unknown, Verified 08/29/23 10:03) HIVES Hydrocodone Bitartrate Allergy (Intermediate, Uncoded 08/29/23 10:03) Rash Medication List - Last Reconciled 08/29/23 by Gianna Heard RN ammonium lactate 12% 1 appl topical BID atorvastatin 40 mg PO DAILY blood sugar diagnostic As directed celecoxib 1 cap PO BID cetirizine 10 mg PO DAILY cholecalciferol (vitamin D3) (Vitamin D3) 50 mcg PO DAILY dulaglutide (Trulicity) 3 mg subcut QWEEK empagliflozin 25 mg PO DAILY fluticasone propionate 50 mcg/actuation 2 sprays intranasal DAILY lisinopril 10 mg PO DAILY omeprazole 1 cap PO DAILY urea 20% 20 appl topical DAILY warfarin See Protocol 5MG X4DAYS/7.5MG MWF; Nursing Note INR: 2.6- in therapeutic range Medications and supplements reviewed- pt stopped zyrtec, started claritin for allergies- no interaction with warfarin per micromedex No changes in health, diet, medications, or supplements, Denies any signs and symptoms of bleeding or bruising or clotting. Bleeding, bruising, clotting discussed Nutritional guidance given Dose: 5mg x 4, 7.5mg x 3 F/U INR: 4 weeks Patient verbalizes understanding of instructions given upcoming colonoscopy on 10/26/23- pt states 3 day hold of warfarin and no lovenox bridge per dr quevedo Anti-Coag Initial Assessment Social Hx Patient Tobacco Use Status: Former Tobacco user Quit Date: 10/25/2018 Smoking packs per day: 1 alcohol intake: former Alcohol intake frequency: former alcohol drinker Coding Level of Care Code Est Patient Level 1 Diagnoses Current use of anticoagulant therapy Z79.01 Assessment & Plan Assessment & Plan (1) Current use of anticoagulant therapy: Code(s): Z79.01 - [facility] (current) use of anticoagulants Medications: New loratadine (Claritin) 10 mg PO DAILY
[2023-08-29 10:13] LABS: Prothrombin Time Whole Bld POC 30.7 sec (11.1-13.5); ~PT, ~INR - Anti Coag Clinic 2.6 (0.9-1.1)
== END 2023-08-29 10:18 | disposition home or self-care (01) ==
LOC: HO.ACS 09:41
PROVIDERS: PCP Internal Medicine; Visit Provider Internal Medicine
DX: Z79.01 Long term (current) use of anticoagulants (principal)

== ENCOUNTER → 2023-08-29 09:41 | Outpatient (BNVA) | payer OTHER, SELFPAY | PROVIDERS: PCP Internal Medicine; Visit Provider Internal Medicine | DX: I82.503 Chronic embolism and thrombosis of unspecified deep veins of lower extremity, bilateral (principal); Z51.81 Encounter for therapeutic drug level monitoring; Z79.01 Long term (current) use of anticoagulants | CPT/HCPCS: 85610; 99211 ==

== ENCOUNTER 2023-09-26 09:33 | Outpatient (AMB) | payer OTHER, SELFPAY ==
--- NOTE | 2023-09-26 09:46 | MHC.OFFVISCO ---
Intake Intake Visit Reasons: Anticoagulation Allergies droperidol [From INAPSINE] Allergy (Severe, Verified 09/26/23 09:39) Anaphylaxis metformin [METFORMIN] Allergy (Severe, Verified 09/26/23 09:39) DIZZINESS AND NAUSEA penicillin V Allergy (Intermediate, Verified 09/26/23 09:39) RASH codeine [CODEINE] Allergy (Unknown, Verified 09/26/23 09:39) Rash egg [EGG] Allergy (Unknown, Verified 09/26/23 09:39) Nausea and Vomiting latex [LATEX] Allergy (Unknown, Verified 09/26/23 09:39) HIVES Hydrocodone Bitartrate Allergy (Intermediate, Uncoded 09/26/23 09:39) Rash Medication List - Last Reconciled 09/26/23 by Gianna Heard RN ammonium lactate 12% 1 appl topical BID atorvastatin 40 mg PO DAILY blood sugar diagnostic As directed celecoxib 1 cap PO BID cholecalciferol (vitamin D3) (Vitamin D3) 50 mcg PO DAILY dulaglutide (Trulicity) 3 mg subcut QWEEK empagliflozin 25 mg PO DAILY fluticasone propionate 50 mcg/actuation 2 sprays intranasal DAILY loratadine (Claritin) 10 mg PO DAILY omeprazole 1 cap PO DAILY urea 20% 20 appl topical DAILY warfarin See Protocol 5MG X4DAYS/7.5MG MWF; Nursing Note INR: 2.3- in therapeutic range of 2-3 Medications and supplements reviewed- lisinopril reduced to 5mg daily- no interaction with warfarin per micromedex No changes in health, diet, medications, or supplements, Denies any signs and symptoms of bleeding or bruising or clotting. Bleeding, bruising, clotting discussed Nutritional guidance given Dose: 7.5mg x 3, 5mg x 4 F/U INR: mon 10/22/23 Patient verbalizes understanding of instructions given pt states colonoscopy on 10/26/23- 3 day hold of warfarin and no lovenox per hematology Anti-Coag Initial Assessment Social Hx Patient Tobacco Use Status: Former Tobacco user Quit Date: 10/25/2018 Smoking packs per day: 1 alcohol intake: former Alcohol intake frequency: former alcohol drinker Coding Level of Care Code Est Patient Level 1 Diagnoses Current use of anticoagulant therapy Z79.01 Results AMB INR Fingerstick AMB INR Fingerstick 2.3 Last Edit by Gianna Heard RN on 09/26/23 09:48 Assessment & Plan Assessment & Plan (1) Current use of anticoagulant therapy: Code(s): Z79.01 - 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
[2023-09-27 13:34] LABS: Prothrombin Time Whole Bld POC 27.9 sec (11.1-13.5); ~PT, ~INR - Anti Coag Clinic 2.3 (0.9-1.1)
== END 2023-09-26 09:57 | disposition home or self-care (01) ==
LOC: HO.ACS 09:33
PROVIDERS: PCP Internal Medicine; Visit Provider Internal Medicine
DX: Z79.01 Long term (current) use of anticoagulants (principal)

== ENCOUNTER → 2023-09-26 09:33 | Outpatient (BNVA) | payer OTHER, SELFPAY | PROVIDERS: PCP Internal Medicine; Visit Provider Internal Medicine | DX: I82.503 Chronic embolism and thrombosis of unspecified deep veins of lower extremity, bilateral (principal); Z51.81 Encounter for therapeutic drug level monitoring; Z79.01 Long term (current) use of anticoagulants | CPT/HCPCS: 85610; 99211 ==

== ENCOUNTER 2023-10-22 10:58 | Outpatient (AMB) | payer OTHER, SELFPAY ==
[2023-10-22 11:19] LABS: Prothrombin Time Whole Bld POC 19.8 sec (11.1-13.5); ~PT, ~INR - Anti Coag Clinic 1.6 (0.9-1.1)
--- NOTE | 2023-10-22 11:30 | MHC.OFFVISCO ---
Intake Intake Visit Reasons: Anticoagulation Allergies droperidol [From INAPSINE] Allergy (Severe, Verified 10/22/23 11:10) Anaphylaxis metformin [METFORMIN] Allergy (Severe, Verified 10/22/23 11:10) DIZZINESS AND NAUSEA penicillin V Allergy (Intermediate, Verified 10/22/23 11:10) RASH codeine [CODEINE] Allergy (Unknown, Verified 10/22/23 11:10) Rash egg [EGG] Allergy (Unknown, Verified 10/22/23 11:10) Nausea and Vomiting latex [LATEX] Allergy (Unknown, Verified 10/22/23 11:10) HIVES Hydrocodone Bitartrate Allergy (Intermediate, Uncoded 10/22/23 11:10) Rash Medication List - Last Reconciled 10/22/23 by Zaria Leger RN ammonium lactate 12% 1 appl topical BID atorvastatin 40 mg PO DAILY blood sugar diagnostic As directed celecoxib 1 cap PO BID cholecalciferol (vitamin D3) (Vitamin D3) 50 mcg PO DAILY dulaglutide (Trulicity) mg subcut empagliflozin 25 mg PO DAILY fluticasone propionate 50 mcg/actuation 2 sprays intranasal DAILY lisinopril 5 mg PO DAILY loratadine (Claritin) 10 mg PO DAILY omeprazole 1 cap PO DAILY urea 20% 20 appl topical DAILY warfarin See Protocol 5MG X4DAYS/7.5MG MWF; Nursing Note INR 1.6 out of therapeutic range Medications and supplements reviewed Patient status: HOLDING WARFARIN X 5 DAYS FOR COLONOSCOPY 10/26/23 - NO LOVENOX BRIDGE PER PT PER MD DVT OER 10 YEARS AGO Medications or supplements: PT STATES HOLDING TRULICITY FOR COLONOSCOPY ALSO Diet: GOOD Denies any signs and symptoms of bleeding or clotting or unusual bruising Bleeding, bruising, clotting discussed Nutritional guidance given: AFTER COLOCOSCOPY TO AVOID GREENS UNTIL INR 2.0 Dose: HOLDING THENPOST PROCEDURE 7.5MG X 3 DAYS THEN RESUME USUAL DOSE 7.5MG X 3 DAYS / 5MG X 4 DAYS F/U INR Date : 11/01 A/P COLONOSCOPY Patient verbalizing understanding of instructions given. Anti-Coag Initial Assessment Social Hx Patient Tobacco Use Status: Former Tobacco user Quit Date: 10/25/2018 Smoking packs per day: 1 alcohol intake: former Alcohol intake frequency: former alcohol drinker Coding Level of Care Code Est Patient Level 1 Diagnoses Current use of anticoagulant therapy Z79.01 Results AMB INR Fingerstick AMB INR Fingerstick 1.6 Last Edit by Zaria Leger RN on 10/22/23 11:23 off warfarin for colonoscopy Assessment & Plan Assessment & Plan (1) Current use of anticoagulant therapy: Code(s): Z79.01 - [facility] (current) use of anticoagulants
== END 2023-10-22 11:35 | disposition home or self-care (01) ==
LOC: HO.ACS 10:58
PROVIDERS: PCP Internal Medicine; Visit Provider Internal Medicine
DX: Z79.01 Long term (current) use of anticoagulants (principal)

== ENCOUNTER → 2023-10-22 10:58 | Outpatient (BNVA) | payer OTHER, SELFPAY | PROVIDERS: PCP Internal Medicine; Visit Provider Internal Medicine | DX: I82.503 Chronic embolism and thrombosis of unspecified deep veins of lower extremity, bilateral (principal); Z51.81 Encounter for therapeutic drug level monitoring; Z79.01 Long term (current) use of anticoagulants | CPT/HCPCS: 85610; 99211 ==

== ENCOUNTER 2023-10-26 07:37 | Day surgery (SDC) | payer OTHER, SELFPAY ==
[2023-10-24 16:23] VITALS: BMI 32.0
--- NOTE | 2023-10-25 10:18 | P.CONAN_ITS ---
Documented by User: Rica Leyva NP 10/25/23 10:25 HPI - Anesthesia Eval Consult details Narrative: 62yo F for Upper Endoscopy and Colonoscopy Warfarin for DVT Anesthesia Pre-Procedure Meds Is the patient on any of the following meds?: Dulaglutide (Trulicity) PMFSH Active Problems Active Problems: All Active Problems (Updated 04/25/21 @ 09:11 by Nahomy Hurst MD) Polycythemia (Chronic) Past Medical History Medical History Hx of drainage of abscess DVT (deep venous thrombosis) Arthritis Low back pain Diabetes Elevated cholesterol Colon polyps Mccormack esophagus Bronchial asthma HTN (hypertension) Polycythemia Current use of anticoagulant therapy Family History Family History Father Heart disease Afib Heart attack Maternal Grandmother Lung cancer Maternal Grandfather Prostate CA Paternal Grandmother Heart attack Paternal Grandfather Heart attack Surgical History Surgical History Previous back surgery Hx of colonoscopy History of hysterectomy History of delivery History of appendectomy History of cholecystectomy Social History Social History Household Members: Spouse Housing: Apartment Alcohol intake: former Patient Tobacco Use Status: Former Tobacco user Quit Date: 2017 Tobacco use type: Cigarette Cigarette Packs Per Day: 1 Years Smoked: 25 Smoked in Last 30 Days: No Use of substances other than those prescribed or required for medical reasons: No Are you DNR?: No Advance Directives: No Advance Directives Information Provided: Yes service: No Current occupational status: retired Meds Allergies Allergy/AdvReac Type Severity Reaction Status Date / Time droperidol [From INAPSINE] Allergy Severe Anaphylaxis Verified 10/26/23 08:15 egg [EGG] Allergy Severe Nausea and Verified 10/26/23 08:15 Vomiting latex [LATEX] Allergy Severe HIVES Verified 10/26/23 08:15 metformin [METFORMIN] Allergy Severe DIZZINESS Verified 10/26/23 08:15 AND NAUSEA penicillin V Allergy Severe RASH Verified 10/26/23 08:15 codeine [CODEINE] Allergy Intermediate Rash Verified 10/26/23 08:15 Hydrocodone Bitartrate Allergy Intermediate Rash Uncoded 10/26/23 08:15 Home Medications Medication Instructions Recorded Confirmed Last Taken Type celecoxib 200 mg capsule 1 cap PO BID 10/25/20 10/26/23 10/23/23 History cholecalciferol (vitamin D3) 50 50 mcg PO DAILY 10/25/20 10/26/23 Unknown History mcg (2,000 unit) capsule (Vitamin D3) fluticasone propionate 50 2 spray intranasal DAILY 10/25/20 10/26/23 Unknown History mcg/actuation nasal spray,suspension omeprazole 20 mg capsule,delayed 1 cap PO DAILY 10/25/20 10/26/23 11/01/20 History release blood sugar diagnostic #10 ea 11/08/20 10/26/23 Unknown History atorvastatin 40 mg tablet 40 mg PO DAILY 12/09/20 10/26/23 Unknown History empagliflozin 25 mg tablet 25 mg PO DAILY 12/09/20 10/26/23 10/25/23 History ammonium lactate 12 % topical cream 1 appl topical BID 02/03/21 10/26/23 Unknown History urea 20 % topical cream 20 appl topical DAILY 02/03/21 10/26/23 Unknown History loratadine 10 mg tablet (Claritin) 10 mg PO DAILY 08/29/23 10/26/23 Unknown History lisinopril 5 mg tablet 5 mg PO DAILY 09/26/23 10/26/23 10/25/23 History dulaglutide 4.5 mg/0.5 mL 4.5 mg subcut QWEEK 10/22/23 10/26/23 10/19/23 History subcutaneous pen injector (Trulicity) Exam Height,Weight and Vital Signs: Height 5 ft 9.5 in Weight 99.79 kg Pertinent Lab Results Pertinent Lab Results: Laboratory Tests 04/27/23 10:15 WBC 10.3 Hgb 16.7 H Hct 48.3 H Plt Count 268 Assessment and Plan Assessment Anesthesia Assessment: Chart Reviewed Documented by User: Anne Byrnes MD 10/26/23 09:15 HPI - Anesthesia Eval Consult details Narrative: 62yo F for Upper Endoscopy and Colonoscopy Warfarin for LE DVT x2 about 11 years ago Finished prep but output not clear yet Anesthesia Pre-Procedure Meds Is the patient on any of the following meds?: Dulaglutide (Trulicity) (Last dose 10/19/23) If Yes to any meds - educate patient: Pt education - increased risk of aspiration PMFSH Active Problems Active Problems: All Active Problems (Updated 10/26/23 @ 08:20 by Anne Byrnes MD) Polycythemia (Chronic) ? Bundle branch block on monitor- review of old records reveals h/o abnormal Ekg. No EKG in chart but had Echo and Stress test 201702/20/18: Stress test- Mild to moderate SOB, no chest discomfort, isolated PAC, PVC, 1 ventricular couplet, normotensive response to exercise with borderline EKG changes inferiorly in setting of baseline ST scooping inferiorly 01/28/18: Transthoracic Echo- Mildly increased LV wall thickness. EF 50-55%. Re gional wma cannot be excluded due to suboptimal endocardial definition. Mild diastolic dysfunction. Mild calcification of Aortic valve. Trivial AV regurgitation. Trace mitral regurg. Trace tricuspid regurg. H/o LE DVT. Last dose of warfarin 10/20/23 DM- last dose of dulaglutide 10/19/23 Past Medical History Medical History Hx of drainage of abscess DVT (deep venous thrombosis) Arthritis Low back pain Diabetes Elevated cholesterol Colon polyps Mccormack esophagus Bronchial asthma HTN (hypertension) Polycythemia Current use of anticoagulant therapy Family History Family History Father Heart disease Afib Heart attack Maternal Grandmother Lung cancer Maternal Grandfather Prostate CA Paternal Grandmother Heart attack Paternal Grandfather Heart attack Family history of problems with anesthesia: No Surgical History Surgical History Previous back surgery Hx of colonoscopy History of hysterectomy History of delivery History of appendectomy History of cholecystectomy History of Problems with Anesthesia: No Social History Social History Household Members: Spouse Housing: Apartment Alcohol intake: former Patient Tobacco Use Status: Former Tobacco user Quit Date: 2017 Tobacco use type: Cigarette Cigarette Packs Per Day: 1 Years Smoked: 25 Smoked in Last 30 Days: No Use of substances other than those prescribed or required for medical reasons: No Are you DNR?: No Advance Directives: No Advance Directives Information Provided: Yes service: No Current occupational status: retired Meds Allergies Allergy/AdvReac Type Severity Reaction Status Date / Time droperidol [From INAPSINE] Allergy Severe Anaphylaxis Verified 10/26/23 08:15 egg [EGG] Allergy Severe Nausea and Verified 10/26/23 08:15 Vomiting latex [LATEX] Allergy Severe HIVES Verified 10/26/23 08:15 metformin [METFORMIN] Allergy Severe DIZZINESS Verified 10/26/23 08:15 AND NAUSEA penicillin V Allergy Severe RASH Verified 10/26/23 08:15 codeine [CODEINE] Allergy Intermediate Rash Verified 10/26/23 08:15 Hydrocodone Bitartrate Allergy Intermediate Rash Uncoded 10/26/23 08:15 Home Medications Medication Instructions Recorded Confirmed Last Taken Type celecoxib 200 mg capsule 1 cap PO BID 10/25/20 10/26/23 10/23/23 History cholecalciferol (vitamin D3) 50 50 mcg PO DAILY 10/25/20 10/26/23 Unknown History mcg (2,000 unit) capsule (Vitamin D3) fluticasone propionate 50 2 spray intranasal DAILY 10/25/20 10/26/23 Unknown History mcg/actuation nasal spray,suspension omeprazole 20 mg capsule,delayed 1 cap PO DAILY 10/25/20 10/26/23 11/01/20 History release blood sugar diagnostic #10 ea 11/08/20 10/26/23 Unknown History atorvastatin 40 mg tablet 40 mg PO DAILY 12/09/20 10/26/23 Unknown History empagliflozin 25 mg tablet 25 mg PO DAILY 12/09/20 10/26/23 10/25/23 History ammonium lactate 12 % topical cream 1 appl topical BID 02/03/21 10/26/23 Unknown History urea 20 % topical cream 20 appl topical DAILY 02/03/21 10/26/23 Unknown History loratadine 10 mg tablet (Claritin) 10 mg PO DAILY 08/29/23 10/26/23 Unknown History lisinopril 5 mg tablet 5 mg PO DAILY 09/26/23 10/26/23 10/25/23 History dulaglutide 4.5 mg/0.5 mL 4.5 mg subcut QWEEK 10/22/23 10/26/23 10/19/23 History subcutaneous pen injector (Trulicity) Exam Height,Weight and Vital Signs: Height 5 ft 9.5 in Weight 99.79 kg Vital Signs Temp Pulse Resp BP Pulse Ox O2 Del Method 10/26/23 08:16 98.4 F 93 16 127/83 97 Room Air Pertinent Lab Results Pertinent Lab Results: Laboratory Tests 04/27/23 10:15 WBC 10.3 Hgb 16.7 H Hct 48.3 H Plt Count 268 Lab Results 10/26/23 10/26/23 Range/Units 08:08 08:13 PT 11.6 (11.1-13.3) SEC INR 1.0 (0.9-1.1) POC Glucose 205 H (60-115) mg/dL Airway Mallampati Class: II TM Dist: >3cm Neck ROM: Full Loose/Missing/Broken Teeth: Yes (Edentulous) Heart: ?RRR. Occasional extra beats Lungs: CTAB Assessment and Plan Assessment Anesthesia Assessment: Anesthesia Plan Discussed Final Anesthetic Review Family History of Problems with Anesthesia: No History of Problems with Anesthesia: No NPO: Yes ASA Class: III Final Preanesthetic Review: No Changes in Pt Med Stat, Meds/Allgs Chart Reviewed, Consent Obtained/Reviewed and Anes Risks/Benef Reviewed Patient Risk: Intermediate Procedure Risk: Low Assessment/Block/Sedation in SS: Assess/Block/Sedation-SS Anesthetic Plan Anesthetic Plan: MAC: Disposition: Standard PACU
--- NOTE | 2023-10-26 | ECG_ITS ---
Test Reason : EKG change Blood Pressure : / mmHG Vent. Rate : 090 BPM Atrial Rate : 090 BPM P-R Int : 170 ms QRS Dur : 138 ms QT Int : 396 ms P-R-T Axes : 041 -31 108 degrees QTc Int : 484 ms Sinus rhythm with Premature supraventricular complexes Left axis deviation Left bundle branch block Abnormal ECG When compared with ECG of 26-OCT-2023 08:28, Premature supraventricular complexes are now Present Referred By: Anne Byrnes Electronically Signed By:Bay Cedeno
[2023-10-26 08:16] VITALS: BP 127/83; PULSE 93; RESP 16; TEMP 36.9; O2SAT 97; BMI 32.1
[2023-10-26 08:17] LABS: Glucose, Whole Blood 205 mg/dL (60-115)
[2023-10-26 08:22] LABS: Prothrombin Time 11.6 SEC (11.1-13.3)
--- NOTE | 2023-10-26 08:24 | ECG_ITS ---
Test Reason : pre op Blood Pressure : / mmHG Vent. Rate : 094 BPM Atrial Rate : 094 BPM P-R Int : 176 ms QRS Dur : 132 ms QT Int : 382 ms P-R-T Axes : 052 -35 108 degrees QTc Int : 477 ms Normal sinus rhythm Left axis deviation Left bundle branch block Abnormal ECG No previous ECGs available Referred By: Anne Byrnes Electronically Signed By:Bay Cedeno
--- NOTE | 2023-10-26 08:39 | PC.NURSE ---
Patient in preop. On monitor, SR with question of BBB. No previous EKG on file. Dr. Finley made aware. EKG ordered. EKG resulted- SR with LBBB. Dr. Byrnes at bedside. No new orders at this time. Okay to proceed with procedure.
[2023-10-26] MEDS: Sodium Phosphate,Mono-Dibasic 133 ML ENEMA PR ×2 (08:45→08:56)
[2023-10-26] MEDS: Lactated Ringers 1,000 ML 100 ML IVCONT (09:00)
--- NOTE | 2023-10-26 09:00 | PC.NURSE ---
Patient in preop. Two fleet enemas given due to patient stating output was yellow water, not clear . Per patient, prep finished completely, no solid food all day yesterday. First fleet enema result, payne cloudy water. Second fleet enema result, darker payne cloudy water. All results visualized by this nurse. Dr. Martínez at bedside and made aware. No new orders at this time.
[2023-10-26 10:24] VITALS: BP 125/63; PULSE 94; RESP 16; TEMP 36.1; O2SAT 97
--- NOTE | 2023-10-26 10:28 | P.BOP_ITS ---
Brief Operative Note Date of Service: 10/26/23 Pre-op diagnosis: Mccormack's, Screening Post-op diagnosis: other (Same, Hiatal hernia, Polyps) Procedure: EGD with biopsies, Colonoscopy to the cecum and TI with bx/removal of polyps Surgeon: Jean Carlos Martínez MD Anesthesia: MAC Was an Internet Network Specialist used for this Procedure?: No Estimated blood loss (mL): 2.0 Pathology: other (A. EG Junction at 37cm B. Gastric antrum C. Cecal polyp D. Polyps at 20cm) Condition: stable Disposition: PACU
[2023-10-26 10:39] VITALS: BP 127/74; PULSE 87; RESP 18; O2SAT 97
[2023-10-26 10:54] VITALS: BP 125/68; PULSE 88; RESP 18; O2SAT 97
--- NOTE | 2023-10-26 13:23 | OP_ITS ---
DATE OF SERVICE: 10/26/2023 SURGEON: Jean Carlos Martínez MD INDICATIONS: The patient presents for evaluation of gastroesophageal reflux, history of Mccormack's esophagus, personal history of tubular adenoma of the colon, and colorectal cancer screening. Full consent has been obtained from her for both procedures, including risks of bleeding and perforation. PREOPERATIVE DIAGNOSIS: POSTOPERATIVE DIAGNOSIS: PROCEDURE PERFORMED: ESTIMATED BLOOD LOSS: COMPLICATIONS: ANESTHESIA: Medication used; monitored anesthesia care. ASSISTANTS: SPECIMENS: PREOPERATIVE DIAGNOSES: History of Mccormack's esophagus, personal history of tubular adenoma of the colon, and colorectal cancer screening. POSTOPERATIVE DIAGNOSES: History of Mccormack's esophagus, personal history of tubular adenoma of the colon, colorectal cancer screening, hiatal hernia, gastritis, colon polyps, diverticulosis, and internal hemorrhoids. PROCEDURES PERFORMED: Esophagogastroduodenoscopy with biopsies, and colonoscopy to the cecum and terminal ileum with biopsy and removal of polyps. DESCRIPTION OF PROCEDURE: The patient was placed in the left lateral decubitus position. The Olympus video gastroscope was passed into the posterior oropharynx and upper esophagus under direct vision. Scope was passed slowly to the distal esophagus. The gastroesophageal junction appeared at 37 cm. There was some slight irregularity consistent with reflux and less than 1 cm areas of Mccormack's-appearing mucosa. There was no esophagitis nor any lesions. The scope entered the stomach. There was a small hiatal hernia. The scope was advanced to pylorus and the duodenum was cannulated to the descending portion. The duodenum including the bulb appeared normal without mass or ulceration. The scope was withdrawn back to the stomach. The gastric antrum and body had areas of edema, erythema, and some friability. Biopsies were obtained from the antrum. There was good peristalsis. The scope was retroflexed visualizing the proximal stomach carefully, which appeared normal, without any sign of mass or ulceration. The scope was straightened and withdrawn back to the esophagus. Biopsies were obtained at the EG junction at 37 cm. Proximal to that, the esophageal mucosa appeared normal. The scope was withdrawn from the patient. She was turned around for colonoscopy. The digital rectal exam revealed no abnormalities. The Olympus video pediatric colonoscope was entered into the rectum and advanced easily to the cecum. Once in the cecum, I did identify cecal pouch with appendiceal orifice and a normal-appearing ileocecal valve. In the cecum, there was a flat, approximately 4 mm polyp, which was biopsied and completely removed with cold biopsy forceps. The terminal ileum was cannulated and appeared normal. The scope was withdrawn back into the colon. The remainder of the cecum appeared normal. The scope was slowly withdrawn assessing all mucosal surfaces carefully. There was a lot of liquid stool in the colon that was ultimately suctioned and removed, allowing for a very good prep and visualization of the colon. At 20 cm, there were 3 flat less than 5 mm polyps, which were all biopsied and completely removed with cold biopsy forceps. I did not visualize any other polyps, colitis, or angiodysplasia. There was a mild amount of sigmoid diverticulosis. In the rectum, scope was retroflexed visualizing internal hemorrhoids, but no other pathology. The rectal mucosa appeared normal. The scope was straightened out and withdrawn from the patient. She tolerated the procedure well and was returned to the recovery area in stable condition. IMPRESSION: 1. Hiatal hernia, gastroesophageal reflux, history of Mccormack's esophagus. 2. Gastritis. 3. Colon polyps. 4. Diverticulosis. 5. Internal hemorrhoids. PLAN: The results of the biopsies will be checked. I would recommend repeat colonoscopy in 5 years for further screening and surveillance. Her upper endoscopy can be followed up at that time as well given the very minimal findings today. She will continue her omeprazole. She was advised to resume her warfarin today, given that her INR was normal, and then have that adjusted as per the anticoagulation clinic or by her PCP. She was advised to continue to avoid all aspirin and NSAIDs. This has been discussed with her . MD MEENU Garcia/BEENA / [id number] MTDD
== END 2023-10-26 11:20 | disposition home or self-care (01) ==
PROVIDERS: PCP Internal Medicine; Visit Provider Internal Medicine
PROC: (CPT 43239; principal; 2023-10-26 09:00)
DX: K29.60 Other gastritis without bleeding (principal); K44.9 Diaphragmatic hernia without obstruction or gangrene; K21.9 Gastro-esophageal reflux disease without esophagitis; Z87.19 Personal history of other diseases of the digestive system; Z12.11 Encounter for screening for malignant neoplasm of colon; D12.0 Benign neoplasm of cecum; K57.30 Diverticulosis of large intestine without perforation or abscess without bleeding; K64.8 Other hemorrhoids; Z86.010 Personal history of colon polyps; E11.9 Type 2 diabetes mellitus without complications; I10 Essential (primary) hypertension; E78.5 Hyperlipidemia, unspecified; D75.1 Secondary polycythemia; Z86.718 Personal history of other venous thrombosis and embolism; Z90.49 Acquired absence of other specified parts of digestive tract; Z90.710 Acquired absence of both cervix and uterus; Z79.01 Long term (current) use of anticoagulants; Z79.899 Other long term (current) drug therapy; Z79.02 Long term (current) use of antithrombotics/antiplatelets; Z79.85 Long-term (current) use of injectable non-insulin antidiabetic drugs
CPT/HCPCS: 43239; 45380; 36415; 82947; 85610; 88305; 88342; 93005; J2704

== ENCOUNTER → 2023-10-26 08:24 | Outpatient (BNV) | payer OTHER, SELFPAY | PROVIDERS: PCP Internal Medicine; Visit Provider Internal Medicine Cardiovascular Disease | DX: I47.10 Supraventricular tachycardia, unspecified (principal); R94.31 Abnormal electrocardiogram [ECG] [EKG] | CPT/HCPCS: 93010 ==

== ENCOUNTER 2023-10-31 10:34 | Outpatient (AMB) | payer OTHER, SELFPAY ==
--- NOTE | 2023-10-31 10:52 | MHC.OFFVISCO ---
Intake Intake Visit Reasons: Anticoagulation Allergies droperidol [From INAPSINE] Allergy (Severe, Verified 10/31/23 10:42) Anaphylaxis egg [EGG] Allergy (Severe, Verified 10/31/23 10:42) Nausea and Vomiting latex [LATEX] Allergy (Severe, Verified 10/31/23 10:42) HIVES metformin [METFORMIN] Allergy (Severe, Verified 10/31/23 10:42) DIZZINESS AND NAUSEA penicillin V Allergy (Severe, Verified 10/31/23 10:42) RASH codeine [CODEINE] Allergy (Intermediate, Verified 10/31/23 10:42) Rash Hydrocodone Bitartrate Allergy (Intermediate, Uncoded 10/31/23 10:42) Rash Nursing Note INR 1.4? out of therapeutic range Medications and supplements reviewed Patient status: s/p colonoscopy 10/26/23 was off warfarin x 5days, Medications or supplements: was off trulicity also for colonoscopy Diet: good, she ate cabbage over the weekend - only a small serving Denies any signs and symptoms of bleeding or clotting or unusual bruising Bleeding, bruising, clotting discussed Nutritional guidance given: avoid all greens until INR therapeutic Dose: 10mg today now F/U INR Date : 11/01/23 tomorrow - because she can not come in sunday?? Patient verbalizing understanding of instructions given. will go to ER for any clot or stroke symptoms call placed to PCP spoke with nurse Scruggs to report INR and plan of care to PCP Anti-Coag Initial Assessment Social Hx Patient Tobacco Use Status: Former Tobacco user Quit Date: 2017 Tobacco use type: Cigarette Smoking packs per day: 1 alcohol intake: former Alcohol intake frequency: does not drink Coding Level of Care Code Est Patient Level 1 Diagnoses Current use of anticoagulant therapy Z79.01 Results AMB INR Fingerstick AMB INR Fingerstick 1.4 Last Edit by Zaria Leger RN on 10/31/23 10:49 manual entry Assessment & Plan Assessment & Plan (1) Current use of anticoagulant therapy: 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
[2023-10-31 12:10] LABS: Prothrombin Time Whole Bld POC 16.4 sec (11.1-13.5); ~PT, ~INR - Anti Coag Clinic 1.4 (0.9-1.1)
== END 2023-10-31 11:02 | disposition home or self-care (01) ==
LOC: HO.ACS 10:34
PROVIDERS: PCP Internal Medicine; Visit Provider Internal Medicine
DX: Z79.01 Long term (current) use of anticoagulants (principal)

== ENCOUNTER → 2023-10-31 10:34 | Outpatient (BNVA) | payer OTHER, SELFPAY | PROVIDERS: PCP Internal Medicine; Visit Provider Internal Medicine | DX: I82.503 Chronic embolism and thrombosis of unspecified deep veins of lower extremity, bilateral (principal); Z51.81 Encounter for therapeutic drug level monitoring; Z79.01 Long term (current) use of anticoagulants | CPT/HCPCS: 85610; 99211 ==

== ENCOUNTER 2023-11-01 13:04 | Outpatient (AMB) | payer OTHER, SELFPAY ==
[2023-11-01 13:09] LABS: Prothrombin Time Whole Bld POC 21.8 sec (11.1-13.5); ~PT, ~INR - Anti Coag Clinic 1.8 (0.9-1.1)
--- NOTE | 2023-11-01 13:12 | MHC.OFFVISCO ---
Intake Intake Visit Reasons: Anticoagulation Allergies droperidol [From INAPSINE] Allergy (Severe, Verified 11/01/23 13:04) Anaphylaxis egg [EGG] Allergy (Severe, Verified 11/01/23 13:04) Nausea and Vomiting latex [LATEX] Allergy (Severe, Verified 11/01/23 13:04) HIVES metformin [METFORMIN] Allergy (Severe, Verified 11/01/23 13:04) DIZZINESS AND NAUSEA penicillin V Allergy (Severe, Verified 11/01/23 13:04) RASH codeine [CODEINE] Allergy (Intermediate, Verified 11/01/23 13:04) Rash Hydrocodone Bitartrate Allergy (Intermediate, Uncoded 11/01/23 13:04) Rash Nursing Note INR: 1.8 OUT OF therapeutic range INR SUB THERAPEUTIC DUE TO COLONOSOCOPY Medications and supplements reviewed AVOID GREENS X 3 MORE DAYS, EAT ORANGE AND REDS TO HELP RAISE THE INR Denies any signs and symptoms of bleeding or bruising or clotting. Bleeding, bruising, clotting discussed Nutritional guidance given Dose: RESUME USUAL DOSE - HAD SEVERAL BOOSTER DOSES EARLIER THIS WEEK 7.5MG MWF/ 5MG X 4 DAY F/U INR: Patient verbalizes understanding of instructions given Anti-Coag Initial Assessment Social Hx Patient Tobacco Use Status: Former Tobacco user Quit Date: 2017 Tobacco use type: Cigarette Smoking packs per day: 1 alcohol intake: former Alcohol intake frequency: does not drink Coding Level of Care Code Est Patient Level 1 Diagnoses Current use of anticoagulant therapy Z79.01 Assessment & Plan Assessment & Plan (1) Current use of anticoagulant therapy: Code(s): Z79.01 - care home (current) use of anticoagulants
== END 2023-11-01 13:15 | disposition home or self-care (01) ==
LOC: HO.ACS 13:04
PROVIDERS: PCP Internal Medicine; Visit Provider Internal Medicine
DX: Z79.01 Long term (current) use of anticoagulants (principal)

== ENCOUNTER → 2023-11-01 13:04 | Outpatient (BNVA) | payer OTHER, SELFPAY | PROVIDERS: PCP Internal Medicine; Visit Provider Internal Medicine | DX: I82.503 Chronic embolism and thrombosis of unspecified deep veins of lower extremity, bilateral (principal); Z51.81 Encounter for therapeutic drug level monitoring; Z79.01 Long term (current) use of anticoagulants | CPT/HCPCS: 85610; 99211 ==

== ENCOUNTER 2023-11-07 10:48 | Outpatient (AMB) | payer OTHER, SELFPAY ==
[2023-11-07 10:58] LABS: Prothrombin Time Whole Bld POC 25.3 sec (11.1-13.5); ~PT, ~INR - Anti Coag Clinic 2.1 (0.9-1.1)
--- NOTE | 2023-11-07 11:02 | MHC.OFFVISCO ---
Intake Intake Visit Reasons: Anticoagulation Allergies droperidol [From INAPSINE] Allergy (Severe, Verified 11/07/23 10:52) Anaphylaxis egg [EGG] Allergy (Severe, Verified 11/07/23 10:52) Nausea and Vomiting latex [LATEX] Allergy (Severe, Verified 11/07/23 10:52) HIVES metformin [METFORMIN] Allergy (Severe, Verified 11/07/23 10:52) DIZZINESS AND NAUSEA penicillin V Allergy (Severe, Verified 11/07/23 10:52) RASH codeine [CODEINE] Allergy (Intermediate, Verified 11/07/23 10:52) Rash Hydrocodone Bitartrate Allergy (Intermediate, Uncoded 11/07/23 10:52) Rash Medication List - Last Reconciled 11/07/23 by Maria Isabel Crabtree RN atorvastatin 40 mg PO DAILY blood sugar diagnostic As directed celecoxib 1 cap PO BID cholecalciferol (vitamin D3) (Vitamin D3) 50 mcg PO DAILY dulaglutide (Trulicity) 4.5 mg subcut QWEEK empagliflozin 25 mg PO DAILY fluticasone propionate 50 mcg/actuation 2 sprays intranasal DAILY lisinopril 5 mg PO DAILY loratadine (Claritin) 10 mg PO DAILY omeprazole 1 cap PO DAILY warfarin See Protocol 5MG X4DAYS/7.5MG MWF; Nursing Note Amb to [facility] feeling well Medications and supplements reviewed No changes in health, diet, medications, or supplements Denies any unusual signs and symptoms of bruising, bleeding Denies any new Chest pain, SOB, or clotting INR: 2.1 in therapeutic range Nutritional guidance given: start to balance greens and reds in diet Dose: continue usual dosing;7.5mg x 3 days and 5mg x 4 days F/U INR: 2 weeks Patient verbalizes understanding of instructions given with accurate read back/ teach back of dosing Anti-Coag Initial Assessment Social Hx Patient Tobacco Use Status: Former Tobacco user Quit Date: 2017 Tobacco use type: Cigarette Smoking packs per day: 1 alcohol intake: former Alcohol intake frequency: does not drink Coding Level of Care Code Est Patient Level 1 Diagnoses Current use of anticoagulant therapy Z79.01 Time Spent (min) 15 Assessment & Plan Assessment & Plan (1) Current use of anticoagulant therapy: Code(s): Z79.01 - nursing home (current) use of anticoagulants
== END 2023-11-07 11:06 | disposition home or self-care (01) ==
LOC: HO.ACS 10:48
PROVIDERS: PCP Internal Medicine; Visit Provider Internal Medicine
DX: Z79.01 Long term (current) use of anticoagulants (principal)

== ENCOUNTER → 2023-11-07 10:48 | Outpatient (BNVA) | payer OTHER, SELFPAY | PROVIDERS: PCP Internal Medicine; Visit Provider Internal Medicine | DX: I82.503 Chronic embolism and thrombosis of unspecified deep veins of lower extremity, bilateral (principal); Z51.81 Encounter for therapeutic drug level monitoring; Z79.01 Long term (current) use of anticoagulants | CPT/HCPCS: 85610; 99211 ==

== ENCOUNTER 2023-11-21 09:43 | Outpatient (AMB) | payer OTHER, SELFPAY ==
[2023-11-21 09:58] LABS: Prothrombin Time Whole Bld POC 26.9 sec (11.1-13.5); ~PT, ~INR - Anti Coag Clinic 2.2 (0.9-1.1)
--- NOTE | 2023-11-21 10:03 | MHC.OFFVISCO ---
Intake Intake Visit Reasons: Anticoagulation Allergies droperidol [From INAPSINE] Allergy (Severe, Verified 11/21/23 09:52) Anaphylaxis egg [EGG] Allergy (Severe, Verified 11/21/23 09:52) Nausea and Vomiting latex [LATEX] Allergy (Severe, Verified 11/21/23 09:52) HIVES metformin [METFORMIN] Allergy (Severe, Verified 11/21/23 09:52) DIZZINESS AND NAUSEA penicillin V Allergy (Severe, Verified 11/21/23 09:52) RASH codeine [CODEINE] Allergy (Intermediate, Verified 11/21/23 09:52) Rash Hydrocodone Bitartrate Allergy (Intermediate, Uncoded 11/07/23 10:52) Rash Medication List - Last Reconciled 11/21/23 by Rebecca Crook RN atorvastatin 40 mg PO DAILY blood sugar diagnostic As directed celecoxib 1 cap PO BID cholecalciferol (vitamin D3) (Vitamin D3) 50 mcg PO DAILY dulaglutide (Trulicity) 4.5 mg subcut QWEEK empagliflozin 25 mg PO DAILY fluticasone propionate 50 mcg/actuation 2 sprays intranasal DAILY lisinopril 5 mg PO DAILY loratadine (Claritin) 10 mg PO DAILY omeprazole 1 cap PO DAILY warfarin See Protocol 5MG X4DAYS/7.5MG MWF; Nursing Note NO CP,SOB,DIET/MED CHANGES,FALLS OR SX OF BLEEDING. CONTINUE PRESENT DOSE AND FOLLOW-UP IN 4 WEEKS.' GOOD UNDERSTANDING OF DOSING INSTR. 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
== END 2023-11-21 10:05 | disposition home or self-care (01) ==
LOC: HO.ACS 09:43
PROVIDERS: PCP Internal Medicine; Visit Provider Internal Medicine
DX: Z79.01 Long term (current) use of anticoagulants (principal)

== ENCOUNTER → 2023-11-21 09:43 | Outpatient (BNVA) | payer OTHER, SELFPAY | PROVIDERS: PCP Internal Medicine; Visit Provider Internal Medicine | DX: I82.503 Chronic embolism and thrombosis of unspecified deep veins of lower extremity, bilateral (principal); Z51.81 Encounter for therapeutic drug level monitoring; Z79.01 Long term (current) use of anticoagulants | CPT/HCPCS: 85610; 99211 ==

== ENCOUNTER 2023-12-19 09:52 | Outpatient (AMB) | payer OTHER, SELFPAY ==
--- NOTE | 2023-12-19 10:00 | MHC.OFFVISCO ---
Intake Intake Visit Reasons: Anticoagulation Allergies droperidol [From INAPSINE] Allergy (Severe, Verified 12/19/23 09:52) Anaphylaxis egg [EGG] Allergy (Severe, Verified 12/19/23 09:52) Nausea and Vomiting latex [LATEX] Allergy (Severe, Verified 12/19/23 09:52) HIVES metformin [METFORMIN] Allergy (Severe, Verified 12/19/23 09:52) DIZZINESS AND NAUSEA penicillin V Allergy (Severe, Verified 12/19/23 09:52) RASH codeine [CODEINE] Allergy (Intermediate, Verified 12/19/23 09:52) Rash Hydrocodone Bitartrate Allergy (Intermediate, Uncoded 12/19/23 09:52) Rash Medication List - Last Reconciled 12/19/23 by Gianna Heard RN atorvastatin 40 mg PO DAILY blood sugar diagnostic As directed celecoxib 1 cap PO BID cholecalciferol (vitamin D3) (Vitamin D3) 50 mcg PO DAILY dulaglutide (Trulicity) 4.5 mg subcut QWEEK empagliflozin 25 mg PO DAILY fluticasone propionate 50 mcg/actuation 2 sprays intranasal DAILY lisinopril 5 mg PO DAILY loratadine (Claritin) 10 mg PO DAILY omeprazole 1 cap PO DAILY warfarin See Protocol 5MG X4DAYS/7.5MG MWF; Nursing Note INR: 2.4- in therapeutic range of 2-3 Medications and supplements reviewed- no changes No changes in health, diet, medications, or supplements, Denies any signs and symptoms of bleeding or bruising or clotting. Bleeding, bruising, clotting discussed Nutritional guidance given Dose: 7.5mg x 3, 5mg x 4 F/U INR: 4 weeks Patient verbalizes understanding of instructions given Anti-Coag Initial Assessment Social Hx Patient Tobacco Use Status: Former Tobacco user Quit Date: 2017 Tobacco use type: Cigarette Smoking packs per day: 1 alcohol intake: former Alcohol intake frequency: does not drink Coding Level of Care Code Est Patient Level 1 Diagnoses Current use of anticoagulant therapy Z79.01 Assessment & Plan Assessment & Plan (1) Current use of anticoagulant therapy: Code(s): Z79.01 - long-term (current) use of anticoagulants
[2023-12-19 10:01] LABS: Prothrombin Time Whole Bld POC 28.7 sec (11.1-13.5); ~PT, ~INR - Anti Coag Clinic 2.4 (0.9-1.1)
== END 2023-12-19 10:06 | disposition home or self-care (01) ==
LOC: HO.ACS 09:52
PROVIDERS: PCP Internal Medicine; Visit Provider Internal Medicine
DX: Z79.01 Long term (current) use of anticoagulants (principal)

== ENCOUNTER → 2023-12-19 09:52 | Outpatient (BNVA) | payer OTHER, SELFPAY | PROVIDERS: PCP Internal Medicine; Visit Provider Internal Medicine | DX: I82.503 Chronic embolism and thrombosis of unspecified deep veins of lower extremity, bilateral (principal); Z51.81 Encounter for therapeutic drug level monitoring; Z79.01 Long term (current) use of anticoagulants | CPT/HCPCS: 85610; 99211 ==

== ENCOUNTER 2024-01-23 09:44 | Outpatient (AMB) | payer MEDICARE, SELFPAY ==
[2024-01-23 10:04] LABS: Prothrombin Time Whole Bld POC 37.9 sec (11.1-13.5); ~PT, ~INR - Anti Coag Clinic 3.2 (0.9-1.1)
--- NOTE | 2024-01-23 10:09 | MHC.OFFVISCO ---
Intake Intake Visit Reasons: Anticoagulation Allergies droperidol [From INAPSINE] Allergy (Severe, Verified 01/23/24 09:58) Anaphylaxis egg [EGG] Allergy (Severe, Verified 01/23/24 09:58) Nausea and Vomiting latex [LATEX] Allergy (Severe, Verified 01/23/24 09:58) HIVES metformin [METFORMIN] Allergy (Severe, Verified 01/23/24 09:58) DIZZINESS AND NAUSEA penicillin V Allergy (Severe, Verified 01/23/24 09:58) RASH codeine [CODEINE] Allergy (Intermediate, Verified 01/23/24 09:58) Rash Hydrocodone Bitartrate Allergy (Intermediate, Uncoded 01/23/24 09:58) Rash Medication List - Last Reconciled 01/23/24 by Zaria Leger RN atorvastatin 40 mg PO DAILY blood sugar diagnostic As directed celecoxib 1 cap PO BID cholecalciferol (vitamin D3) (Vitamin D3) 50 mcg PO DAILY dulaglutide (Trulicity) 4.5 mg subcut QWEEK empagliflozin 25 mg PO DAILY fluticasone propionate 50 mcg/actuation 2 sprays intranasal DAILY lisinopril 5 mg PO DAILY loratadine (Claritin) 10 mg PO DAILY omeprazole 1 cap PO DAILY warfarin See Protocol 5MG X4DAYS/7.5MG MWF; Nursing Note INR: 3.2 ALMOST in therapeutic range Medications and supplements reviewed HAD GI VIRUS DECREASED 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 Bleeding, bruising, clotting discussed Nutritional guidance given - EAT GREENS TODAY AND REVIEW FOOD LIST WEEKLY Dose: 7.5MG MWF/ 5MG X 4 DAYS F/U INR: 4 WEEKS Patient verbalizes understanding of instructions given Anti-Coag Initial Assessment Social Hx Patient Tobacco Use Status: Former Tobacco user Quit Date: 2017 Tobacco use type: Cigarette Smoking packs per day: 1 alcohol intake: former Alcohol intake frequency: does not drink Coding Level of Care Code Est Patient Level 1 Diagnoses Current use of anticoagulant therapy Z79.01 Assessment & Plan Assessment & Plan (1) Current use of anticoagulant therapy: Code(s): Z79.01 - nursing home (current) use of anticoagulants
== END 2024-01-23 10:13 | disposition home or self-care (01) ==
LOC: HO.ACS 09:44
PROVIDERS: PCP Internal Medicine; Visit Provider Internal Medicine
DX: Z79.01 Long term (current) use of anticoagulants (principal)

== ENCOUNTER → 2024-01-23 09:44 | Outpatient (BNVA) | payer MEDICARE, SELFPAY | PROVIDERS: PCP Internal Medicine; Visit Provider Internal Medicine | DX: I82.503 Chronic embolism and thrombosis of unspecified deep veins of lower extremity, bilateral (principal); Z79.01 Long term (current) use of anticoagulants; Z51.81 Encounter for therapeutic drug level monitoring | CPT/HCPCS: 85610; 99211 ==

== ENCOUNTER 2024-02-20 09:37 | Outpatient (AMB) | payer MEDICARE, SELFPAY ==
--- NOTE | 2024-02-20 09:56 | MHC.OFFVISCO ---
Intake Intake Visit Reasons: Anticoagulation Allergies droperidol [From INAPSINE] Allergy (Severe, Verified 02/20/24 09:52) Anaphylaxis egg [EGG] Allergy (Severe, Verified 02/20/24 09:52) Nausea and Vomiting latex [LATEX] Allergy (Severe, Verified 02/20/24 09:52) HIVES metformin [METFORMIN] Allergy (Severe, Verified 02/20/24 09:52) DIZZINESS AND NAUSEA penicillin V Allergy (Severe, Verified 02/20/24 09:52) RASH codeine [CODEINE] Allergy (Intermediate, Verified 02/20/24 09:52) Rash Hydrocodone Bitartrate Allergy (Intermediate, Uncoded 02/20/24 09:52) Rash Medication List - Last Reconciled 02/20/24 by Gianna Heard RN atorvastatin 40 mg PO DAILY blood sugar diagnostic As directed celecoxib 1 cap PO BID cholecalciferol (vitamin D3) (Vitamin D3) 50 mcg PO DAILY dulaglutide (Trulicity) 4.5 mg subcut QWEEK empagliflozin 25 mg PO DAILY fluticasone propionate 50 mcg/actuation 2 sprays intranasal DAILY lisinopril 5 mg PO DAILY loratadine (Claritin) 10 mg PO DAILY omeprazole 1 cap PO DAILY warfarin See Protocol 5MG X4DAYS/7.5MG MWF; Nursing Note INR: 2.2- in therapeutic range of 2-3 Medications and supplements reviewed- no changes No changes in health, diet, medications, or supplements, Denies any signs and symptoms of bleeding or bruising or clotting. Bleeding, bruising, clotting discussed Nutritional guidance given Dose: 7.5mg x 3, 5mg x 4 F/U INR: 4 weeks Patient verbalizes understanding of instructions given Anti-Coag Initial Assessment Social Hx Patient Tobacco Use Status: Former Tobacco user Quit Date: 2017 Tobacco use type: Cigarette Smoking packs per day: 1 alcohol intake: former Alcohol intake frequency: does not drink Coding Level of Care Code Est Patient Level 1 Diagnoses Current use of anticoagulant therapy Z79.01 Results AMB INR Fingerstick AMB INR Fingerstick 2.2 Last Edit by Gianna Heard RN on 02/20/24 09:58 Assessment & Plan Assessment & Plan (1) Current use of anticoagulant therapy: Code(s): Z79.01 - skilled nursing (current) use of anticoagulants
[2024-02-20 09:57] LABS: Prothrombin Time Whole Bld POC 26.5 sec (11.1-13.5); ~PT, ~INR - Anti Coag Clinic 2.2 (0.9-1.1)
== END 2024-02-20 10:05 | disposition home or self-care (01) ==
LOC: HO.ACS 09:37
PROVIDERS: PCP Internal Medicine; Visit Provider Internal Medicine
DX: Z79.01 Long term (current) use of anticoagulants (principal)

== ENCOUNTER → 2024-02-20 09:37 | Outpatient (BNVA) | payer MEDICARE, SELFPAY | PROVIDERS: PCP Internal Medicine; Visit Provider Internal Medicine | DX: I82.503 Chronic embolism and thrombosis of unspecified deep veins of lower extremity, bilateral (principal); Z79.01 Long term (current) use of anticoagulants; Z51.81 Encounter for therapeutic drug level monitoring | CPT/HCPCS: 85610; 99211 ==

== ENCOUNTER 2024-03-19 09:37 | Outpatient (AMB) | payer MEDICARE, SELFPAY ==
[2024-03-19 09:52] LABS: ~PT, ~INR - Anti Coag Clinic 2.3 (0.9-1.1)
--- NOTE | 2024-03-19 09:56 | MHC.OFFVISCO ---
Intake Intake Visit Reasons: Anticoagulation Allergies droperidol [From INAPSINE] Allergy (Severe, Verified 03/19/24 09:46) Anaphylaxis egg [EGG] Allergy (Severe, Verified 03/19/24 09:46) Nausea and Vomiting latex [LATEX] Allergy (Severe, Verified 03/19/24 09:46) HIVES metformin [METFORMIN] Allergy (Severe, Verified 03/19/24 09:46) DIZZINESS AND NAUSEA penicillin V Allergy (Severe, Verified 03/19/24 09:46) RASH codeine [CODEINE] Allergy (Intermediate, Verified 03/19/24 09:46) Rash Hydrocodone Bitartrate Allergy (Intermediate, Uncoded 02/20/24 09:52) Rash Nursing Note NO CP,SOB,DIET/MED CHANGES,FALLS OR SX OF BLEEDING. CONTINUE PRESENT DOSE AND FOLLOW-UP IN 4 WEEKS. GOOD UNDERSTANDING OF DOSING INSTR. Anti-Coag Initial Assessment Social Hx Patient Tobacco Use Status: Former Tobacco user Quit Date: 2017 Tobacco use type: Cigarette Smoking packs per day: 1 alcohol intake: former Alcohol intake frequency: does not drink Coding Level of Care Code Est Patient Level 1 Diagnoses Current use of anticoagulant therapy Z79.01 Assessment & Plan Assessment & Plan (1) Current use of anticoagulant therapy: Code(s): Z79.01 - custodial (current) use of anticoagulants
== END 2024-03-19 09:59 | disposition home or self-care (01) ==
LOC: HO.ACS 09:37
PROVIDERS: PCP Internal Medicine; Visit Provider Internal Medicine
DX: Z79.01 Long term (current) use of anticoagulants (principal)

== ENCOUNTER → 2024-03-19 09:37 | Outpatient (BNVA) | payer MEDICARE, OTHER, SELFPAY | PROVIDERS: PCP Internal Medicine; Visit Provider Internal Medicine | DX: I82.503 Chronic embolism and thrombosis of unspecified deep veins of lower extremity, bilateral (principal); Z51.81 Encounter for therapeutic drug level monitoring; Z79.01 Long term (current) use of anticoagulants | CPT/HCPCS: 85610; 99211 ==

== ENCOUNTER → 2024-04-10 09:37 | Outpatient (BNVA) | payer MEDICARE, OTHER, SELFPAY | PROVIDERS: PCP Internal Medicine; Visit Provider Internal Medicine | DX: I82.503 Chronic embolism and thrombosis of unspecified deep veins of lower extremity, bilateral (principal); Z51.81 Encounter for therapeutic drug level monitoring; Z79.01 Long term (current) use of anticoagulants | CPT/HCPCS: 85610; 99211 ==

== ENCOUNTER 2024-04-16 09:54 | Outpatient (AMB) | payer MEDICARE, OTHER, SELFPAY ==
[2024-04-16 10:07] LABS: Prothrombin Time Whole Bld POC 24.8 sec (11.1-13.5); ~PT, ~INR - Anti Coag Clinic 2.1 (0.9-1.1)
--- NOTE | 2024-04-16 10:10 | MHC.OFFVISCO ---
Intake Intake Visit Reasons: Anticoagulation Allergies droperidol [From INAPSINE] Allergy (Severe, Verified 04/16/24 09:55) Anaphylaxis egg [EGG] Allergy (Severe, Verified 04/16/24 09:55) Nausea and Vomiting latex [LATEX] Allergy (Severe, Verified 04/16/24 09:55) HIVES metformin [METFORMIN] Allergy (Severe, Verified 04/16/24 09:55) DIZZINESS AND NAUSEA penicillin V Allergy (Severe, Verified 04/16/24 09:55) RASH codeine [CODEINE] Allergy (Intermediate, Verified 04/16/24 09:55) Rash Hydrocodone Bitartrate Allergy (Intermediate, Uncoded 04/16/24 09:55) Rash Medication List - Last Reconciled 04/16/24 by Gianna Heard RN atorvastatin 40 mg PO DAILY blood sugar diagnostic As directed celecoxib 1 cap PO BID cholecalciferol (vitamin D3) (Vitamin D3) 50 mcg PO DAILY empagliflozin 25 mg PO DAILY fluticasone propionate 50 mcg/actuation 2 sprays intranasal DAILY lisinopril 5 mg PO DAILY loratadine (Claritin) 10 mg PO DAILY omeprazole 1 cap PO DAILY semaglutide (Ozempic) 1 mg subcut QWEEK warfarin See Protocol 5MG X4DAYS/7.5MG MWF; Nursing Note INR: 2.1- in therapeutic range of 2-3 Medications and supplements reviewed No changes in health, diet, medications, or supplements, Denies any signs and symptoms of bleeding or bruising or clotting. Bleeding, bruising, clotting discussed Nutritional guidance given Dose: 7.5mg x 2, 5mg x 5 F/U INR: 2 weeks Patient verbalizes understanding of instructions given pt cont on ozempic but may go back on trulicity Anti-Coag Initial Assessment Social Hx Patient Tobacco Use Status: Former Tobacco user Tobacco use type: Cigarette Smoking packs per day: 1 alcohol intake: former Alcohol intake frequency: does not drink Coding Level of Care Code Est Patient Level 1 Diagnoses Current use of anticoagulant therapy Z79.01 Results AMB INR Fingerstick AMB INR Fingerstick 2.1 Last Edit by Gianna Heard RN on 04/16/24 10:06 Assessment & Plan Assessment & Plan (1) Current use of anticoagulant therapy: 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
== END 2024-04-16 10:29 | disposition home or self-care (01) ==
LOC: HO.ACS 09:54
PROVIDERS: PCP Internal Medicine; Visit Provider Internal Medicine
DX: Z79.01 Long term (current) use of anticoagulants (principal)

== ENCOUNTER → 2024-04-16 09:54 | Outpatient (BNVA) | payer MEDICARE, OTHER, SELFPAY | PROVIDERS: PCP Internal Medicine; Visit Provider Internal Medicine | DX: I82.503 Chronic embolism and thrombosis of unspecified deep veins of lower extremity, bilateral (principal); Z79.01 Long term (current) use of anticoagulants; Z51.81 Encounter for therapeutic drug level monitoring | CPT/HCPCS: 85610; 99211 ==

== ENCOUNTER 2024-04-30 09:55 | Outpatient (AMB) | payer MEDICARE, OTHER, SELFPAY ==
--- NOTE | 2024-04-30 10:04 | MHC.OFFVISCO ---
Intake Intake Visit Reasons: Anticoagulation Allergies droperidol [From INAPSINE] Allergy (Severe, Verified 04/30/24 09:56) Anaphylaxis egg [EGG] Allergy (Severe, Verified 04/30/24 09:56) Nausea and Vomiting latex [LATEX] Allergy (Severe, Verified 04/30/24 09:56) HIVES metformin [METFORMIN] Allergy (Severe, Verified 04/30/24 09:56) DIZZINESS AND NAUSEA penicillin V Allergy (Severe, Verified 04/30/24 09:56) RASH codeine [CODEINE] Allergy (Intermediate, Verified 04/30/24 09:56) Rash Hydrocodone Bitartrate Allergy (Intermediate, Uncoded 04/16/24 09:55) Rash Medication List - Last Reconciled 04/30/24 by Rebecca Crook RN atorvastatin 40 mg PO DAILY blood sugar diagnostic As directed celecoxib 1 cap PO BID cholecalciferol (vitamin D3) (Vitamin D3) 50 mcg PO DAILY empagliflozin 25 mg PO DAILY fluticasone propionate 50 mcg/actuation 2 sprays intranasal DAILY lisinopril 5 mg PO DAILY loratadine (Claritin) 10 mg PO DAILY omeprazole 1 cap PO DAILY semaglutide (Ozempic) 1 mg subcut QWEEK warfarin See Protocol 5MG X4DAYS/7.5MG MWF; Nursing Note NO CP,SOB,DIET/MED CHANGES,FALLS OR SX OF BLEEDING. CONTINUE PRESENT DOSE AND FOLLOW-UP IN 3 WEEKS. GOOD UNDERSTANDING OF DOSING INSTR. 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
[2024-04-30 14:39] LABS: Prothrombin Time Whole Bld POC 24.8 sec (11.1-13.5); ~PT, ~INR - Anti Coag Clinic 2.1 (0.9-1.1)
== END 2024-04-30 10:05 | disposition home or self-care (01) ==
LOC: HO.ACS 09:55
PROVIDERS: PCP Internal Medicine; Visit Provider Internal Medicine
DX: Z79.01 Long term (current) use of anticoagulants (principal)

== ENCOUNTER → 2024-04-30 09:55 | Outpatient (BNVA) | payer MEDICARE, OTHER, SELFPAY | PROVIDERS: PCP Internal Medicine; Visit Provider Internal Medicine | DX: I82.503 Chronic embolism and thrombosis of unspecified deep veins of lower extremity, bilateral (principal); Z79.01 Long term (current) use of anticoagulants; Z51.81 Encounter for therapeutic drug level monitoring | CPT/HCPCS: 85610; 99211 ==

== ENCOUNTER 2024-05-21 09:55 | Outpatient (AMB) | payer MEDICARE, OTHER, SELFPAY ==
[2024-05-21 10:11] LABS: Prothrombin Time Whole Bld POC 23.4 sec (11.1-13.5); ~PT, ~INR - Anti Coag Clinic 1.9 (0.9-1.1)
--- NOTE | 2024-05-21 10:15 | MHC.OFFVISCO ---
Intake Intake Visit Reasons: Anticoagulation Allergies droperidol [From INAPSINE] Allergy (Severe, Verified 05/21/24 10:06) Anaphylaxis egg [EGG] Allergy (Severe, Verified 05/21/24 10:06) Nausea and Vomiting latex [LATEX] Allergy (Severe, Verified 05/21/24 10:06) HIVES metformin [METFORMIN] Allergy (Severe, Verified 05/21/24 10:06) DIZZINESS AND NAUSEA penicillin V Allergy (Severe, Verified 05/21/24 10:06) RASH codeine [CODEINE] Allergy (Intermediate, Verified 05/21/24 10:06) Rash Hydrocodone Bitartrate Allergy (Intermediate, Uncoded 04/16/24 09:55) Rash Medication List - Last Reconciled 05/21/24 by Rebecca Crook RN atorvastatin 40 mg PO DAILY blood sugar diagnostic As directed celecoxib 1 cap PO BID cholecalciferol (vitamin D3) (Vitamin D3) 50 mcg PO DAILY empagliflozin 25 mg PO DAILY fluticasone propionate 50 mcg/actuation 2 sprays intranasal DAILY lisinopril 5 mg PO DAILY loratadine (Claritin) 10 mg PO DAILY omeprazole 1 cap PO DAILY semaglutide (Ozempic) 1 mg subcut QWEEK warfarin See Protocol 5MG X4DAYS/7.5MG MWF; Nursing Note NO CP,SOB,DIET/MED CHANGES,FALLS OR SX OF BLEEDING. BOOST TO 7.5MGM TODAY THEN RESUME USUAL DOSE AND FOLLOW-UP IN 3 WEEKS. GOOD UNDERSTANDING OF DOSING INSTR. Anti-Coag Initial Assessment Social Hx Patient Tobacco Use Status: Former Tobacco user Tobacco use type: Cigarette Smoking packs per day: 1 alcohol intake: former Alcohol intake frequency: does not drink Coding Level of Care Code Est Patient Level 1 Diagnoses Current use of anticoagulant therapy Z79.01 Assessment & Plan Assessment & Plan (1) Current use of anticoagulant therapy: Code(s): Z79.01 - care home (current) use of anticoagulants
== END 2024-05-21 10:19 | disposition home or self-care (01) ==
LOC: HO.ACS 09:55
PROVIDERS: PCP Internal Medicine; Visit Provider Internal Medicine
DX: Z79.01 Long term (current) use of anticoagulants (principal)

== ENCOUNTER → 2024-05-21 09:55 | Outpatient (BNVA) | payer MEDICARE, OTHER, SELFPAY | PROVIDERS: PCP Internal Medicine; Visit Provider Internal Medicine | DX: I82.503 Chronic embolism and thrombosis of unspecified deep veins of lower extremity, bilateral (principal); Z79.01 Long term (current) use of anticoagulants; Z51.81 Encounter for therapeutic drug level monitoring | CPT/HCPCS: 85610; 99211 ==

== ENCOUNTER 2024-06-11 09:44 | Outpatient (AMB) | payer MEDICARE, OTHER, SELFPAY ==
--- NOTE | 2024-06-11 09:52 | MHC.OFFVISCO ---
Intake Intake Visit Reasons: Anticoagulation Allergies droperidol [From INAPSINE] Allergy (Severe, Verified 06/11/24 09:48) Anaphylaxis egg [EGG] Allergy (Severe, Verified 06/11/24 09:48) Nausea and Vomiting latex [LATEX] Allergy (Severe, Verified 06/11/24 09:48) HIVES metformin [METFORMIN] Allergy (Severe, Verified 06/11/24 09:48) DIZZINESS AND NAUSEA penicillin V Allergy (Severe, Verified 06/11/24 09:48) RASH codeine [CODEINE] Allergy (Intermediate, Verified 06/11/24 09:48) Rash Hydrocodone Bitartrate Allergy (Intermediate, Uncoded 06/11/24 09:48) Rash Medication List - Last Reconciled 06/11/24 by Gianna Heard RN atorvastatin 40 mg PO DAILY blood sugar diagnostic As directed celecoxib 1 cap PO BID cholecalciferol (vitamin D3) (Vitamin D3) 50 mcg PO DAILY empagliflozin 25 mg PO DAILY fluticasone propionate 50 mcg/actuation 2 sprays intranasal DAILY lisinopril 5 mg PO DAILY loratadine (Claritin) 10 mg PO DAILY omeprazole 1 cap PO DAILY semaglutide (Ozempic) 1 mg subcut QWEEK warfarin See Protocol 5MG X4DAYS/7.5MG MWF; Nursing Note INR 1.9-? out of therapeutic range- 2-3 Medications and supplements reviewed Patient status: no c.o Medications or supplements: no changes Diet: blueberry smoothies- pt states will eliminate Denies any signs and symptoms of bleeding or clotting or unusual bruising Bleeding, bruising, clotting discussed Nutritional guidance given: no greens for 2 days, eat reds to raise Dose: 7.5mg today then cont 5mg x 5, 7.5mg x 2 F/U INR Date : 3 weeks? Patient verbalizing understanding of instructions given. 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
[2024-06-11 09:54] LABS: Prothrombin Time Whole Bld POC 22.4 sec (11.1-13.5); ~PT, ~INR - Anti Coag Clinic 1.9 (0.9-1.1)
== END 2024-06-11 10:48 | disposition home or self-care (01) ==
LOC: HO.ACS 09:44
PROVIDERS: PCP Internal Medicine; Visit Provider Internal Medicine
DX: Z79.01 Long term (current) use of anticoagulants (principal)

== ENCOUNTER → 2024-06-11 09:44 | Outpatient (BNVA) | payer MEDICARE, OTHER, SELFPAY | PROVIDERS: PCP Internal Medicine; Visit Provider Internal Medicine | DX: I82.503 Chronic embolism and thrombosis of unspecified deep veins of lower extremity, bilateral (principal); Z79.01 Long term (current) use of anticoagulants; Z51.81 Encounter for therapeutic drug level monitoring | CPT/HCPCS: 85610; 99211 ==

== ENCOUNTER 2024-07-02 09:39 | Outpatient (AMB) | payer OTHER, MEDICARE, SELFPAY ==
--- NOTE | 2024-07-02 10:05 | MHC.OFFVISCO ---
Intake Intake Visit Reasons: Anticoagulation Allergies droperidol [From INAPSINE] Allergy (Severe, Verified 07/02/24 09:58) Anaphylaxis egg [EGG] Allergy (Severe, Verified 07/02/24 09:58) Nausea and Vomiting latex [LATEX] Allergy (Severe, Verified 07/02/24 09:58) HIVES metformin [METFORMIN] Allergy (Severe, Verified 07/02/24 09:58) DIZZINESS AND NAUSEA penicillin V Allergy (Severe, Verified 07/02/24 09:58) RASH codeine [CODEINE] Allergy (Intermediate, Verified 07/02/24 09:58) Rash Hydrocodone Bitartrate Allergy (Intermediate, Uncoded 07/02/24 09:58) Rash Medication List - Last Reconciled 07/02/24 by Gianna Heard RN atorvastatin 40 mg PO DAILY blood sugar diagnostic As directed celecoxib 1 cap PO BID cholecalciferol (vitamin D3) (Vitamin D3) 50 mcg PO DAILY empagliflozin 25 mg PO DAILY fluticasone propionate 50 mcg/actuation 2 sprays intranasal DAILY lisinopril 5 mg PO DAILY loratadine (Claritin) 10 mg PO DAILY omeprazole 1 cap PO DAILY semaglutide (Ozempic) 1 mg subcut QWEEK warfarin See Protocol 5MG X4DAYS/7.5MG MWF; Nursing Note INR 1.9-? out of therapeutic range of 2-3 Medications and supplements reviewed Patient status: no c.o Medications or supplements: no changes Diet: same Denies any signs and symptoms of bleeding or clotting or unusual bruising Bleeding, bruising, clotting discussed Nutritional guidance given: no greens for 2 days Dose: increase weekly dosing to 7.5mg x 3, 5mg x 4 F/U INR Date : 2 weeks? Patient verbalizing understanding of instructions given. 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
[2024-07-03 09:49] LABS: Prothrombin Time Whole Bld POC 22.7 sec (11.1-13.5); ~PT, ~INR - Anti Coag Clinic 1.9 (0.9-1.1)
== END 2024-07-02 10:30 | disposition home or self-care (01) ==
LOC: HO.ACS 09:39
PROVIDERS: PCP Internal Medicine; Visit Provider Internal Medicine
DX: Z79.01 Long term (current) use of anticoagulants (principal)

== ENCOUNTER → 2024-07-02 09:39 | Outpatient (BNVA) | payer MEDICARE, OTHER, SELFPAY | PROVIDERS: PCP Internal Medicine; Visit Provider Internal Medicine | DX: I82.503 Chronic embolism and thrombosis of unspecified deep veins of lower extremity, bilateral (principal); Z51.81 Encounter for therapeutic drug level monitoring; Z79.01 Long term (current) use of anticoagulants | CPT/HCPCS: 85610; 99211 ==

== ENCOUNTER 2024-07-16 10:06 | Outpatient (AMB) | payer OTHER, MEDICARE, SELFPAY ==
[2024-07-16 10:21] LABS: Prothrombin Time Whole Bld POC 24.7 sec (11.1-13.5); ~PT, ~INR - Anti Coag Clinic 2.1 (0.9-1.1)
--- NOTE | 2024-07-16 10:25 | MHC.OFFVISCO ---
Intake Intake Visit Reasons: Anticoagulation Allergies droperidol [From INAPSINE] Allergy (Severe, Verified 07/16/24 10:16) Anaphylaxis egg [EGG] Allergy (Severe, Verified 07/16/24 10:16) Nausea and Vomiting latex [LATEX] Allergy (Severe, Verified 07/16/24 10:16) HIVES metformin [METFORMIN] Allergy (Severe, Verified 07/16/24 10:16) DIZZINESS AND NAUSEA penicillin V Allergy (Severe, Verified 07/16/24 10:16) RASH codeine [CODEINE] Allergy (Intermediate, Verified 07/16/24 10:16) Rash Hydrocodone Bitartrate Allergy (Intermediate, Uncoded 07/02/24 09:58) Rash Medication List - Last Reconciled 07/16/24 by Rebecca Crook RN atorvastatin 40 mg PO DAILY blood sugar diagnostic As directed celecoxib 1 cap PO BID cholecalciferol (vitamin D3) (Vitamin D3) 50 mcg PO DAILY empagliflozin 25 mg PO DAILY fluticasone propionate 50 mcg/actuation 2 sprays intranasal DAILY lisinopril 5 mg PO DAILY loratadine (Claritin) 10 mg PO DAILY omeprazole 1 cap PO DAILY semaglutide (Ozempic) 1 mg subcut QWEEK warfarin See Protocol 5MG X4DAYS/7.5MG MWF; Nursing Note NO CP,SOB,DIET/MED CHANGES,FALLS OR SX OF BLEEDING. CONTINUE PRESENT DOSE AND FOLLOW-UP IN 3 WEEKS. GOOD UNDERSTANDING OF DOSING INSTR. 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
== END 2024-07-16 10:29 | disposition home or self-care (01) ==
LOC: HO.ACS 10:06
PROVIDERS: PCP Internal Medicine; Visit Provider Internal Medicine
DX: Z79.01 Long term (current) use of anticoagulants (principal)

== ENCOUNTER → 2024-07-16 10:06 | Outpatient (BNVA) | payer MEDICARE, OTHER, SELFPAY | PROVIDERS: PCP Internal Medicine; Visit Provider Internal Medicine | DX: I82.503 Chronic embolism and thrombosis of unspecified deep veins of lower extremity, bilateral (principal); Z79.01 Long term (current) use of anticoagulants; Z51.81 Encounter for therapeutic drug level monitoring | CPT/HCPCS: 85610; 99211 ==

== ENCOUNTER 2024-08-06 09:45 | Outpatient (AMB) | payer MEDICARE, OTHER, SELFPAY ==
--- NOTE | 2024-08-06 10:23 | MHC.OFFVISCO ---
Intake Intake Visit Reasons: Anticoagulation Allergies droperidol [From INAPSINE] Allergy (Severe, Verified 08/06/24 10:18) Anaphylaxis egg [EGG] Allergy (Severe, Verified 08/06/24 10:18) Nausea and Vomiting latex [LATEX] Allergy (Severe, Verified 08/06/24 10:18) HIVES metformin [METFORMIN] Allergy (Severe, Verified 08/06/24 10:18) DIZZINESS AND NAUSEA penicillin V Allergy (Severe, Verified 08/06/24 10:18) RASH codeine [CODEINE] Allergy (Intermediate, Verified 08/06/24 10:18) Rash Hydrocodone Bitartrate Allergy (Intermediate, Uncoded 08/06/24 10:18) Rash Medication List - Last Reconciled 08/06/24 by Gianna Heard RN atorvastatin 40 mg PO DAILY blood sugar diagnostic As directed celecoxib 1 cap PO BID cholecalciferol (vitamin D3) (Vitamin D3) 50 mcg PO DAILY empagliflozin 25 mg PO DAILY fluticasone propionate 50 mcg/actuation 2 sprays intranasal DAILY lisinopril 5 mg PO DAILY loratadine (Claritin) 10 mg PO DAILY omeprazole 1 cap PO DAILY semaglutide (Ozempic) 1 mg subcut QWEEK warfarin See Protocol 5MG X4DAYS/7.5MG MWF; Nursing Note INR: 2.4- in therapeutic range 2-3 Medications and supplements reviewed No changes in health, diet, medications, or supplements, Denies any signs and symptoms of bleeding or bruising or clotting. Bleeding, bruising, clotting discussed Nutritional guidance given Dose: 7.5mg x 3, 5mg x 4 F/U INR: pt req 4 weeks Patient verbalizes understanding of instructions given Anti-Coag Initial Assessment Social Hx Patient Tobacco Use Status: Former Tobacco user Tobacco use type: Cigarette Smoking packs per day: 1 alcohol intake: former Alcohol intake frequency: does not drink Coding Level of Care Code Est Patient Level 1 Diagnoses Current use of anticoagulant therapy Z79.01 Assessment & Plan Assessment & Plan (1) Current use of anticoagulant therapy: Code(s): Z79.01 - care home (current) use of anticoagulants
[2024-08-06 10:24] LABS: Prothrombin Time Whole Bld POC 28.6 sec (11.1-13.5); ~PT, ~INR - Anti Coag Clinic 2.4 (0.9-1.1)
== END 2024-08-06 10:38 | disposition home or self-care (01) ==
LOC: HO.ACS 09:45
PROVIDERS: PCP Internal Medicine; Visit Provider Internal Medicine
DX: Z79.01 Long term (current) use of anticoagulants (principal)

== ENCOUNTER → 2024-08-06 09:45 | Outpatient (BNVA) | payer MEDICARE, OTHER, SELFPAY | PROVIDERS: PCP Internal Medicine; Visit Provider Internal Medicine | DX: I82.503 Chronic embolism and thrombosis of unspecified deep veins of lower extremity, bilateral (principal); Z79.01 Long term (current) use of anticoagulants; Z51.81 Encounter for therapeutic drug level monitoring | CPT/HCPCS: 85610; 99211 ==

== ENCOUNTER 2024-09-03 09:42 | Outpatient (AMB) | payer MEDICARE, OTHER, SELFPAY ==
[2024-09-03 09:54] LABS: ~PT, ~INR - Anti Coag Clinic 2.2 (0.9-1.1)
--- NOTE | 2024-09-03 09:56 | MHC.OFFVISCO ---
Intake Intake Visit Reasons: Anticoagulation Allergies droperidol [From INAPSINE] Allergy (Severe, Verified 09/03/24 09:48) Anaphylaxis egg [EGG] Allergy (Severe, Verified 09/03/24 09:48) Nausea and Vomiting latex [LATEX] Allergy (Severe, Verified 09/03/24 09:48) HIVES metformin [METFORMIN] Allergy (Severe, Verified 09/03/24 09:48) DIZZINESS AND NAUSEA penicillin V Allergy (Severe, Verified 09/03/24 09:48) RASH codeine [CODEINE] Allergy (Intermediate, Verified 09/03/24 09:48) Rash Hydrocodone Bitartrate Allergy (Intermediate, Uncoded 08/06/24 10:18) Rash Medication List - Last Reconciled 09/03/24 by Rebecca Crook RN atorvastatin 40 mg PO DAILY blood sugar diagnostic As directed celecoxib 1 cap PO BID cholecalciferol (vitamin D3) (Vitamin D3) 50 mcg PO DAILY empagliflozin 25 mg PO DAILY fluticasone propionate 50 mcg/actuation 2 sprays intranasal DAILY lisinopril 5 mg PO DAILY loratadine (Claritin) 10 mg PO DAILY omeprazole 1 cap PO DAILY semaglutide (Ozempic) 1 mg subcut QWEEK warfarin See Protocol 5MG X4DAYS/7.5MG MWF; Nursing Note NO CP,SOB,DIET/MED CHANGES,FALLS OR SX OF BLEEDING. CONTINUE PRESENT DOSE AND FOLLOW-UP IN 4 WEEKS. GOOD UNDERSTANDING OF DOSING INSTR. 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
== END 2024-09-03 10:02 | disposition home or self-care (01) ==
LOC: HO.ACS 09:42
PROVIDERS: PCP Internal Medicine; Visit Provider Internal Medicine
DX: Z79.01 Long term (current) use of anticoagulants (principal)

== ENCOUNTER → 2024-09-03 09:42 | Outpatient (BNVA) | payer MEDICARE, OTHER, SELFPAY | PROVIDERS: PCP Internal Medicine; Visit Provider Internal Medicine | DX: I82.503 Chronic embolism and thrombosis of unspecified deep veins of lower extremity, bilateral (principal); Z79.01 Long term (current) use of anticoagulants; Z51.81 Encounter for therapeutic drug level monitoring | CPT/HCPCS: 85610; 99211 ==

== ENCOUNTER 2024-10-01 09:41 | Outpatient (AMB) | payer MEDICARE, OTHER, SELFPAY ==
[2024-10-01 10:00] LABS: Prothrombin Time Whole Bld POC 22.3 sec (11.1-13.5); ~PT, ~INR - Anti Coag Clinic 1.9 (0.9-1.1)
--- NOTE | 2024-10-01 10:03 | MHC.OFFVISCO ---
Intake Intake Visit Reasons: Anticoagulation Allergies droperidol [From INAPSINE] Allergy (Severe, Verified 10/01/24 09:54) Anaphylaxis egg [EGG] Allergy (Severe, Verified 10/01/24 09:54) Nausea and Vomiting latex [LATEX] Allergy (Severe, Verified 10/01/24 09:54) HIVES metformin [METFORMIN] Allergy (Severe, Verified 10/01/24 09:54) DIZZINESS AND NAUSEA penicillin V Allergy (Severe, Verified 10/01/24 09:54) RASH codeine [CODEINE] Allergy (Intermediate, Verified 10/01/24 09:54) Rash Hydrocodone Bitartrate Allergy (Intermediate, Uncoded 10/01/24 09:54) Rash Medication List - Last Reconciled 10/01/24 by Maria Isabel Garza RN atorvastatin 40 mg PO DAILY blood sugar diagnostic As directed celecoxib 1 cap PO BID cholecalciferol (vitamin D3) (Vitamin D3) 50 mcg PO DAILY empagliflozin 25 mg PO DAILY fluticasone propionate 50 mcg/actuation 2 sprays intranasal DAILY lisinopril 5 mg PO DAILY loratadine (Claritin) 10 mg PO DAILY omeprazole 1 cap PO DAILY semaglutide (Ozempic) 1 mg subcut QWEEK warfarin See Protocol 5MG X4DAYS/7.5MG MWF; Nursing Note INR 1.9?out of therapeutic range of 2-3 Medications and supplements reviewed Patient status: well Medications or supplements: no changes Diet: usual diet for pt but she states she has had increased greens over the past week. Denies any signs and symptoms of bleeding or clotting or unusual bruising Bleeding, bruising, clotting discussed Nutritional guidance given: to have a serving of foods from the list that raises the INR. Food list reviewed Dose: swap tomorrow's usual dose with today's dose so pt will take 7.5mg today and 5mg tomorrow then to resume usual dose of 5mg X 4 days and 7.5mg X 3 days (, , Sun) F/U INR Date : 4 weeks?? Patient verbalizing understanding of instructions given. 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
== END 2024-10-01 10:08 | disposition home or self-care (01) ==
LOC: HO.ACS 09:41
PROVIDERS: PCP Internal Medicine; Visit Provider Internal Medicine
DX: Z79.01 Long term (current) use of anticoagulants (principal)

== ENCOUNTER → 2024-10-01 09:41 | Outpatient (BNVA) | payer MEDICARE, OTHER, SELFPAY | PROVIDERS: PCP Internal Medicine; Visit Provider Internal Medicine | DX: I82.503 Chronic embolism and thrombosis of unspecified deep veins of lower extremity, bilateral (principal); Z79.01 Long term (current) use of anticoagulants; Z51.81 Encounter for therapeutic drug level monitoring | CPT/HCPCS: 85610; 99211 ==

== ENCOUNTER 2024-10-30 09:43 | Outpatient (AMB) | payer MEDICARE, OTHER, SELFPAY ==
--- OUTSIDE RECORDS SUMMARY | 2024-10-30 09:44 | XMS_ITS ---
Author Organization [facility] Address [address] [place] [address] Care Team Providers Care Appeals Referee Name Role Phone Jewel Nuñez MD Primary Care Provider Jean Carlos Meadows Unavailable [phone] Freda Patel Unavailable Unavailable REASON FOR VISIT gerd,screening,hx polyps PROBLEMS Problem Type ICD Code Onset Dates Problem Status W/U Status Risk SNOMED Code Notes Problem Diverticulosis of large intestine without perforation or abscess without bleeding (K57.30) Active confirmed Diverticul ar disease of colon (800933025) Problem Gastroesophageal reflux disease (K21.9) Active confirmed Gastroesophagea l reflux disease (859897481) 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 Mccormack esophag us (838996075) Problem Gastritis (K29.70) Active confirmed Gas tritis (8933807) Encounters Encounter Location Date Provider Diagnosis [facility] [address] [place] [id number] 10/26/2023 Jean Carlos Martínez Encounter for screen ing colonoscopy Z12.11 ; Colon polyps K63.5 ; Diverticulosis of large intestine without perforation or abscess without bleeding K57.30 ; Other hemorrhoids K64.8 ; Gastroesophageal reflux disease K21.9 ; Mccormack esophagus K22.70 ; Gastritis K29.70 and Hiatal hernia K44.9 ASSESSMENTS Encounter Date Diagnosis Assessment Notes Treatment Notes Treatment Clinical Notes 10/26/2023 Encounter for screen ing colonoscopy (ICD-10 - Z12.11) 10/26/2023 Colon polyps (ICD-10 - K63.5) 10/26/2023 Diverticulosis of la rge intestine without perforation or abscess without bleeding (ICD-10 - K57.30) 10/26/2023 Other hemorrhoids (ICD-10 - K64.8) 10/26/2023 Gastroesophageal ref lux disease (ICD-10 - K21.9) 10/26/2023 Mccormack esophagus (ICD-10 - K22.70) 10/26/2023 Gastritis (ICD-10 - K29.70) 10/26/2023 Hiatal hernia (ICD-1 0 - K44.9) PLAN OF TREATMENT No Information
--- OUTSIDE RECORDS SUMMARY | 2024-10-30 09:45 | XMS_ITS | Patient Health Record ---
Author Organization [facility] Address [address] [place] [address] Care Team Providers Care Shake Splitter Name Role Phone Jewel Nuñez MD Primary Care Provider Jean Carlos Meadows Unavailable [phone] Freda Patel Unavailable Unavailable ALLERGIES Allergen (clinical drug ingredient) Drug/Non Drug Allergy documented on EMR Reaction Allergy Type Onset Date Status Vicodin Unknown Drug Allergy Active metformin Metformin HCl nausea and vomiting Drug Allergy Active Inapsine Unknown Drug Allergy Active acetaminophen / hydrocodone Hydrocodone-Aceta minophen nausea Drug Allergy Active codeine Codeine Sulfate palptations Drug Allergy Active Penicillin Unknown Drug Allergy Active Latex Gloves rash Drug Allergy Acti ve REASON FOR REFERRAL No Information MEDICATIONS Medication SIG (Take, Route, Frequency, Duration) Notes Start Date End Date Status ZyrTEC Allergy 10 MG 1 tablet Orally Onc e a day for 30 day(s) Active Vitamin D3 2000 UNIT 1 capsule Orally On ce a day for 30 day(s) Active Fluticasone Propionate 50 MCG/ACT SPRAY 2 SPRAYS BY NASAL ROUTE DAILY. Nasal for 90 Active Atorvastatin Calcium 40 MG TAKE 1 TABLET (20 MG TOTAL) BY MOUTH DAILY. Orally Once a day Active Omeprazole 20 MG TAKE 1 CAPSULE BY MO UT EVERY DAY for 90 Active Warfarin Sodium 5 MG as directed Orally Once a day Active Lisinopril 10 MG 1 tablet Orally Once a day Active Celecoxib 200 MG TAKE 1 CAPSULE BY MO UT TWICE A DAY Oral for 90 Active Jardiance 25 MG TAKE 1 TABLET BY KAY TH EVERY DAY Orally Once a day Active Trulicity 3 MG/0.5ML INJECT 1.5 ML UNDER THE SKIN EVERY 7 DAYS. Subcutaneous once a week Active IMMUNIZATIONS Vaccine Route Administration Date Status Comme nts Influenza Unknown 09/02/2019 Refused SOCIAL HISTORY Tobacco Use: Social History Observation Description Date Details (start date - stop date) Former Smoker NA - NA Sex Assigned At : Social History Observation Description Sex Assigned At Unknown Tobacco Use/Smoking Question Answer Notes Patient is a former smoker How long has it been since you last smoked? 6-12 months Alcohol Screen Question Answer Notes Did you have a drink containing alcohol in the p ast year? 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) Active confirmed 352054288 Problem Diverticulosis of large intestine without perforation or abscess without bleeding (K57.30) Active confirmed Diverticul ar disease of colon (344015073) Problem Gastroesophageal reflux disease (K21.9) Active confirmed Gastroesophagea l reflux disease (139528433) Problem Gastroesophageal reflux disease without esophagitis (K21.9) Active confirmed 754160131 Problem Tubular adenoma of colon (D12.6) Active confirmed 669007351 Problem Gastroesophageal reflux disease, esophagitis presence not specified (K21.9) Active confirmed 256861415 Problem Gastritis (K29.70) Active confirmed Gas tritis (7643414) 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 Mccormack esophag us (829893209) PLAN OF TREATMENT Future Test Test Name Order Date COLONOSCOPY 11/27/2012 UPPER GI ENDOSCOPY 09/02/2019 COLONOSCOPY 09/02/2019 COLONOSCOPY 03/30/2020 UPPER GI ENDOSCOPY 07/19/2023 COLONOSCOPY 07/19/2023 Insurance Providers Payer Name Payer Address Payer Phone Subscriber Number Group Number Insured Name Patient Relationship to Insured Coverage Start Date Coverage End Date [facility] [address] [place] [address] [id number] TIBURCIO MARCANO Self - patient is the insured MEDICAL (GENERAL) HISTORY Medical History History ICD Code HTN Denies [place],CVA,Lung disease,renal disease Polycythemia vera since 2010-gets a phle botomy Q 8 weeks-sees Dr. Hurst 2 DVT's in Reports an ulcer in her s DM Arthrits Bursitis Kidneystones in early Colonoscopy 12/2012 with 3 tubular adenom as removed GERD upper endoscopy in 2018 revealed a small hiatal hernia and small area of Mccormack's esophagus. There was no esophagitis and biopsies from the Mccormack's mucosa were negative for dysplasia- Colonoscopy in October 2019 revealed 2 tubular adenomas in the cecum which were removed and a flat tubular adenoma of the ileocecal valve that was removed as well Colonoscopy 10/2020 revealed no residual polyp tissue on the ileocecal valve and just a single tubular adenoma removed from the ascending colon Surgical History Surgery Date(Month/Year) Cholecystectomy Back surgery Hysterectomy with BSO
--- OUTSIDE RECORDS SUMMARY | 2024-10-30 09:45 | XMS_ITS ---
Author Organization [facility] Address [address] [place] [address] Care Team Providers Care Life Cycle Assessment Analyst Name Role Phone Jewel Nuñez MD Primary Care Provider Jean Carlos Meadows Unavailable [phone] Freda Patel Unavailable Unavailable ALLERGIES Allergen (clinical [...] rash Drug Allergy Acti ve REASON FOR VISIT Patient presents today for a colonoscopy & upper endo recall MEDICATIONS Medication SIG (Take, Route, Frequency, Duration) Notes Start Date End Date Status Omeprazole 20 MG 1 Orally Every morni ng for 90 days 09/18/2022 Active ZyrTEC Allergy 10 MG 1 tablet Orally Onc e a day for 30 day(s) Active Vitamin D3 2000 UNIT 1 capsule Orally On ce a day for 30 day(s) Active Fluticasone Propionate 50 MCG/ACT SPRAY 2 SPRAYS BY NASAL ROUTE DAILY. Nasal for 90 Active Trulicity 3 MG/0.5ML INJECT 1.5 ML UNDER THE SKIN EVERY 7 DAYS. Subcutaneous once a week Active Atorvastatin Calcium 40 MG TAKE 1 TABLET (20 MG TOTAL) BY MOUTH DAILY. Orally Once a day Active Warfarin Sodium 5 MG as directed Orally Once a day Active Lisinopril 10 MG 1 tablet Orally Once a day Active Celecoxib 200 MG TAKE 1 CAPSULE BY MO UTH TWICE A DAY Oral for 90 Active Jardiance 25 MG TAKE 1 TABLET BY KAY EVERY DAY Orally Once a day Active SOCIAL HISTORY Tobacco Use: Social History Observation [...] ast year? No Points 0 Interpretation Negative VITAL SIGNS BMI 32.02 kg/m2 07/19/2023 Blood pressure systolic 000 mm Hg 07/19/20 23 Blood pressure diastolic 00 mm Hg 023 Height 69.50 in 07/19/2023 Temperature 97.1 degrees Fahrenheit 07/19/20 23 Weight 220 lbs 07/19/2023 Encounters Encounter Location Date Provider Diagnosis [facility] [address] [place] [address] 07/19/2023 Jean Carlos Martínez Gastroesophageal ref lux disease, esophagitis presence not specified K21.9 ; Mccormack's esophagus without dysplasia K22.70 ; History of adenomatous polyp of colon Z86.010 ; Encounter for screening for malignant neoplasm of colon Z12.11 and Tubular adenoma of colon D12.6 ASSESSMENTS Encounter Date Diagnosis Assessment Notes Treatment Notes Treatment Clinical Notes 07/19/2023 Gastroesophageal ref lux disease, esophagitis presence not specified (ICD-10 - K21.9) 07/19/2023 Mccormack's esophagus without dysplasia (ICD-10 - K22.70) 07/19/2023 History of adenomato us polyp of colon (ICD-10 - Z86.010) 07/19/2023 Encounter for screen ing for malignant neoplasm of colon (ICD-10 - Z12.11) Stop Warfarin for 5 days before the procedures and speak with Dr. Hurst about the Lovenox injections Do not take the Jardiance the day before nor on the day of the procedures. We will do the procedures on a Sunday and you will keep taking your Trulicity on Saturdays. 07/19/2023 Tubular adenoma of colon (ICD-10 - D12.6) PLAN OF TREATMENT Treatment Notes Assessment Notes Encounter for screening for malignant neoplasm of colon Stop Warfarin for 5 days before the procedures and speak with Dr. Hurst about the Lovenox injections Do not take the Jardiance the day before nor on the day of the procedures. We will do the procedures on a Sunday and you will keep taking your Trulicity on Saturdays. Future Test Test Name Order Date UPPER GI ENDOSCOPY 07/19/2023 COLONOSCOPY 07/19/2023 Next Appt Details Follow Up: prn, Reason: Progress Notes * Examination Category Sub-Category Detail Notes General Examination GENERAL APPEARANCE: pleasant , well nourished, well developed, in no acute distress EYES: sclera non-icteric NECK/THYROID: no cervical lymphade nopathy, neck supple HEART: S1, S2 normal LUNGS: clear to auscultatio n bilaterally ABDOMEN: normal bowel sounds, no guarding or rigidity, no hepatosplenomegaly, no masses palpable, soft, nontender, nondistended. NEUROLOGIC: alert and oriented SKIN: nonjaundiced, no spi minna angiomata. EXTREMITIES: no edema ORAL CAVITY: mucosa moist
--- OUTSIDE RECORDS SUMMARY | 2024-10-30 09:45 | XMS_ITS ---
Author Organization [facility] Address [address] [place] [address] Care Team Providers Care Coal Cager Name Role Phone Jewel Nuñez MD Primary Care Provider Jean Carlos Meadows Unavailable [phone] Freda Patel Unavailable Unavailable REASON FOR VISIT Trulicity-speak with the [facility] office Encounters Encounter Location Date Provider Diagnosis [facility] [address] [place] [id number] 10/21/2023 Jean Carlos Martínez PLAN OF TREATMENT No Information
[2024-10-30 09:49] LABS: Prothrombin Time Whole Bld POC 23.4 sec (11.1-13.5)
--- NOTE | 2024-10-30 09:57 | MHC.OFFVISCO ---
Intake Intake Visit Reasons: Anticoagulation Allergies droperidol [From INAPSINE] Allergy (Severe, Verified 10/30/24 09:50) Anaphylaxis egg [EGG] Allergy (Severe, Verified 10/30/24 09:50) Nausea and Vomiting latex [LATEX] Allergy (Severe, Verified 10/30/24 09:50) HIVES metformin [METFORMIN] Allergy (Severe, Verified 10/30/24 09:50) DIZZINESS AND NAUSEA penicillin V Allergy (Severe, Verified 10/30/24 09:50) RASH codeine [CODEINE] Allergy (Intermediate, Verified 10/30/24 09:50) Rash Hydrocodone Bitartrate Allergy (Intermediate, Uncoded 10/30/24 09:50) Rash Medication List - Last Reconciled 10/30/24 by Zaria Leger RN atorvastatin 40 mg PO DAILY blood sugar diagnostic As directed celecoxib 1 cap PO BID cholecalciferol (vitamin D3) (Vitamin D3) 50 mcg PO DAILY empagliflozin 25 mg PO DAILY fluticasone propionate 50 mcg/actuation 2 sprays intranasal DAILY lisinopril 5 mg PO DAILY loratadine (Claritin) 10 mg PO DAILY omeprazole 1 cap PO DAILY semaglutide (Ozempic) 1 mg subcut QWEEK warfarin See Protocol 5MG X4DAYS/7.5MG MWF; Nursing Note INR: 2.0 in therapeutic range Medications and supplements reviewed No changes in health, diet, medications, or supplements, Denies any signs and symptoms of bleeding or bruising or clotting. Bleeding, bruising, clotting discussed Nutritional guidance given Dose: 7.5MG X 3 DAYS/ 5MG X 4 DAYS F/U INR: 1 MONTH Patient verbalizes understanding of instructions given Anti-Coag Initial Assessment Social Hx Patient Tobacco Use Status: Former Tobacco user Tobacco use type: Cigarette Smoking packs per day: 1 alcohol intake: former Alcohol intake frequency: does not drink Questionnaires HAS-BLED Does the patient had uncontrolled Hypertension?: No Does the patient have renal disease?: No Does the patient have liver disease?: No Does the patient have a history of stroke?: No Has the patient had major bleeding or predisposition to bleeding?: No Does the patient have labile INRs?: No Is the patient over 65 years of age?: No Is the patient on medications that gives them a predisposition to bleeding?: Yes Does the patient use alcohol?: No HAS-BLED Score: 1 CHADSVASC Age: <65 Gender: Female Does the patient have a history of CHF?: No Does the patient have a history of Hypertension?: Yes Does the patient have a history of Stroke/TIA/Thromboembolism?: Yes Does the patient have a history of Vascular Disease (prior TX, PAD or aortic plaque)?: Yes Does the patient have a history of Diabetes?: Yes CHADS VACS Score: 6 Shaw Prediction Score Rsk VTE Active Cancer: No Previous VTE, excluding superficial vein thrombosis: Yes Reduced mobility: No Already known Thrombophilic Condition: Yes With-in last month Trauma and/or Surgery: No Elderly 70 year or older: No Heart and/or Respiratory Failure: No Acute Myocardial infarction and/or Ischemic Stroke: No Acute Infection and/or Rheumatologic Disorder: Yes Obesity (BMI 30 or greater): Yes Ongoing Hormonal Treatment: No Score: 8 Shaw Score less than 4; Low Risk of VTE Shaw Score 4 or greater; High Risk of VTE Coding Level of Care Code Est Patient Level 1 Diagnoses Current use of anticoagulant therapy Z79.01 Assessment & Plan Assessment & Plan (1) Current use of anticoagulant therapy: Code(s): 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
== END 2024-10-30 10:04 | disposition home or self-care (01) ==
LOC: HO.ACS 09:43
PROVIDERS: PCP Internal Medicine; Visit Provider Internal Medicine
DX: Z79.01 Long term (current) use of anticoagulants (principal)

== ENCOUNTER → 2024-10-30 09:43 | Outpatient (BNVA) | payer MEDICARE, OTHER, SELFPAY | PROVIDERS: PCP Internal Medicine; Visit Provider Internal Medicine | DX: I82.503 Chronic embolism and thrombosis of unspecified deep veins of lower extremity, bilateral (principal); Z79.01 Long term (current) use of anticoagulants; Z51.81 Encounter for therapeutic drug level monitoring | CPT/HCPCS: 85610; 99211 ==

== ENCOUNTER 2024-11-26 09:40 | Outpatient (AMB) | payer MEDICARE, OTHER, SELFPAY ==
--- NOTE | 2024-11-26 09:52 | MHC.OFFVISCO ---
Intake Intake Visit Reasons: Anticoagulation Allergies droperidol [From INAPSINE] Allergy (Severe, Verified 11/26/24 09:47) Anaphylaxis egg [EGG] Allergy (Severe, Verified 11/26/24 09:47) Nausea and Vomiting latex [LATEX] Allergy (Severe, Verified 11/26/24 09:47) HIVES metformin [METFORMIN] Allergy (Severe, Verified 11/26/24 09:47) DIZZINESS AND NAUSEA penicillin V Allergy (Severe, Verified 11/26/24 09:47) RASH codeine [CODEINE] Allergy (Intermediate, Verified 11/26/24 09:47) Rash Hydrocodone Bitartrate Allergy (Intermediate, Uncoded 11/26/24 09:47) Rash Medication List - Last Reconciled 11/26/24 by Gianna Heard RN atorvastatin 40 mg PO DAILY blood sugar diagnostic As directed celecoxib 1 cap PO BID cholecalciferol (vitamin D3) (Vitamin D3) 50 mcg PO DAILY empagliflozin 25 mg PO DAILY fluticasone propionate 50 mcg/actuation 2 sprays intranasal DAILY lisinopril 5 mg PO DAILY loratadine (Claritin) 10 mg PO DAILY omeprazole 1 cap PO DAILY semaglutide (Ozempic) 1 mg subcut QWEEK warfarin See Protocol 5MG X4DAYS/7.5MG MWF; Nursing Note INR 1.9-?? out of therapeutic range of 2-3 Medications and supplements reviewed Patient status: no c.o, denies missed dose Medications or supplements: no changes Diet: same Denies any signs and symptoms of bleeding or clotting or unusual bruising Bleeding, bruising, clotting discussed Nutritional guidance given: no greens Dose: take 7.5mg today then increase weekly dosing 7.5mg x 4, 5mg x 3 due to prev low inr's F/U INR Date : 2 weeks? Patient verbalizing understanding of instructions given. 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
[2024-11-27 08:00] LABS: Prothrombin Time Whole Bld POC 23.3 sec (11.1-13.5); ~PT, ~INR - Anti Coag Clinic 1.9 (0.9-1.1)
== END 2024-11-26 10:01 | disposition home or self-care (01) ==
LOC: HO.ACS 09:40
PROVIDERS: PCP Internal Medicine; Visit Provider Internal Medicine
DX: Z79.01 Long term (current) use of anticoagulants (principal)

== ENCOUNTER → 2024-11-26 09:40 | Outpatient (BNVA) | payer MEDICARE, OTHER, SELFPAY | PROVIDERS: PCP Internal Medicine; Visit Provider Internal Medicine | DX: I82.503 Chronic embolism and thrombosis of unspecified deep veins of lower extremity, bilateral (principal); Z79.01 Long term (current) use of anticoagulants; Z51.81 Encounter for therapeutic drug level monitoring | CPT/HCPCS: 85610; 99211 ==

== ENCOUNTER 2024-12-10 09:47 | Outpatient (AMB) | payer MEDICARE, OTHER, SELFPAY ==
--- NOTE | 2024-12-10 10:16 | MHC.OFFVISCO ---
Intake Intake Visit Reasons: Anticoagulation Allergies droperidol [From INAPSINE] Allergy (Severe, Verified 12/10/24 09:55) Anaphylaxis egg [EGG] Allergy (Severe, Verified 12/10/24 09:55) Nausea and Vomiting latex [LATEX] Allergy (Severe, Verified 12/10/24 09:55) HIVES metformin [METFORMIN] Allergy (Severe, Verified 12/10/24 09:55) DIZZINESS AND NAUSEA penicillin V Allergy (Severe, Verified 12/10/24 09:55) RASH codeine [CODEINE] Allergy (Intermediate, Verified 12/10/24 09:55) Rash Hydrocodone Bitartrate Allergy (Intermediate, Uncoded 12/10/24 09:55) Rash Medication List - Last Reconciled 12/10/24 by Gianna Heard RN atorvastatin 40 mg PO DAILY blood sugar diagnostic As directed celecoxib 1 cap PO BID cholecalciferol (vitamin D3) (Vitamin D3) 50 mcg PO DAILY empagliflozin 25 mg PO DAILY fluticasone propionate 50 mcg/actuation 2 sprays intranasal DAILY lisinopril 5 mg PO DAILY loratadine (Claritin) 10 mg PO DAILY omeprazole 1 cap PO DAILY warfarin See Protocol 5MG X4DAYS/7.5MG MWF; Nursing Note INR 3.3-? out of therapeutic range of 2-3 Medications and supplements reviewed Patient status: no c.o Medications or supplements: ozempic d/c and started mounjaro- per [facility] pharm may affect but more related to dietary intake Diet: has been having strawberry smoothies Denies any signs and symptoms of bleeding or clotting or unusual bruising Bleeding, bruising, clotting discussed Nutritional guidance given: eat a green today, no reds for 2 days Dose: 2.5mg today then reduce weekly dosing to 7.5mg x 3, 5mg x 4 F/U INR Date : 2 weeks? Patient verbalizing understanding of instructions given. 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
[2024-12-10 10:24] LABS: Prothrombin Time Whole Bld POC 39.1 sec (11.1-13.5); ~PT, ~INR - Anti Coag Clinic 3.3 (0.9-1.1)
--- OUTSIDE RECORDS SUMMARY | 2024-12-10 11:29 | XMS_ITS | Patient Health Record ---
Author Organization [facility] Address [address] [place] [address] Care Team Providers Care Electrical Contacts Adjuster Name Role Phone Jewel Nuñez MD Primary Care Provider Jean Carlos Meadows Unavailable [phone] Freda Patel Unavailable Unavailable ALLERGIES Allergen (clinical [...] 20 MG TAKE 1 CAPSULE BY MO [facility] EVERY DAY for 90 Active Warfarin Sodium [...] malignant neoplasm of colon (Z12.11) Active confirmed 958113437 Problem History of adenomatous polyp of colon (Z86.010) Active confirmed 207273604 Problem 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) Active confirmed 207523307 Problem Diverticulosis of large intestine without perforation or abscess without bleeding (K57.30) Active confirmed Diverticul ar disease of colon (342607140) Problem Gastroesophageal reflux disease (K21.9) Active confirmed Gastroesophagea l reflux disease (431027102) Problem Gastroesophageal reflux disease without esophagitis (K21.9) Active confirmed 620521497 Problem Tubular adenoma of colon (D12.6) Active confirmed 963858538 Problem Gastroesophageal reflux disease, esophagitis presence not specified (K21.9) Active confirmed 847683720 Problem Gastritis (K29.70) Active confirmed Gas tritis (5912190) 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 Mccormack esophag us (375433088) PLAN OF TREATMENT Future Test Test Name Order Date COLONOSCOPY 11/27/2012 UPPER GI ENDOSCOPY 09/02/2019 COLONOSCOPY 09/02/2019 COLONOSCOPY 03/30/2020 UPPER GI ENDOSCOPY 07/19/2023 COLONOSCOPY 07/19/2023 Insurance Providers Payer Name Payer Address Payer Phone Subscriber Number Group Number Insured Name Patient Relationship to Insured Coverage Start Date Coverage End Date [facility] [address] [place] [address] [id number] TIBURCIO MARCANO Self - patient is the insured MEDICAL (GENERAL) HISTORY Medical History History ICD Code HTN Denies [place],CVA,Lung disease,renal disease Polycythemia vera since 2010-gets a [...]
--- OUTSIDE RECORDS SUMMARY | 2024-12-10 11:29 | XMS_ITS | Clinical Summary ---
Author Organization [facility] ity Address [address] [place] [address] Care Team Providers Care Perioperative Nurse Name Role Phone Unavailable Primary Care Provider Unavailabl e Social History Tobacco Use Types Packs/Day Years Used Date Smoking Tobacco: Never Assessed Sex and Gender Information Value Date Recorded Sex Assigned at Not on file Gender Identity Not on file Sexual Orientation Not on file Plan of Treatment Health Maintenance Due Date Last Done Comments DTaP,Tdap,and Td Vaccines (1 - Tdap) 1977 Cervical Cancer Screening: Pap Smear 1979 Zoster Vaccines (1 of 2) 2008 Colorectal Cancer Screening: Colonoscopy 10/15/2022 Depression Screening 10/15/2022 Hepatitis C Screening 10/15/2022 Social Influencers of Health Screening 10/15/2022 Falls Risk Assessment 2023 Pneumococcal Vaccine: 65+ Years (1 of 1 - PCV) 2023 COVID-19 Vaccine ( - 2023- season) 2024 Influenza Vaccine (#1) 2024 Breast Cancer Screening 09/03/2024 09/03/20, 09/26/2020, 06/15/2019, Additional history exists Osteoporosis Screening (Bone Density Screening) 12/20/2030 12/20/2020 RSV Immunization Patients 60+ Years Old (1 - 1-dose 75+ series) 2033 HIB Vaccines Aged Out No longer eligi ble based on patient's age to complete this topic HPV Vaccines Aged Out No longer eligi ble based on patient's age to complete this topic Hepatitis A Vaccines Aged Out No long er eligible based on patient's age to complete this topic Hepatitis B Vaccines Aged Out No long er eligible based on patient's age to complete this topic IPV Vaccines Aged Out No longer eligi ble based on patient's age to complete this topic MMR Vaccines Aged Out No longer eligi ble based on patient's age to complete this topic Meningococcal ACWY Vaccine Aged Out N o longer eligible based on patient's age to complete this topic Pneumococcal Vaccine: Pediatrics (0 to 5 Years) and At-Risk Patients (6 to 64 Years) Aged Out No longer eligible based on patient's age to complete this topic RSV Immunization Patients Under 20 months Aged Out No longer eligible based on patient's age to complete this topic Varicella Vaccines Aged Out No longer eligible based on patient's age to complete this topic Procedures Procedure Name Priority Date/Time Associated Diagnosis Comments [facility] SCREENING DIGITAL Routine 09/03/2022 8:59 AM EDT Encounter for screening mammogram for malignant neoplasm of breast [facility] DEXA AXIAL SKELETON Routine 12/20/2020 3:43 PM EST Encounter for screening for osteoporosis from Last 3 Months or Most Recently Relevant to Health Maintenance Results * [facility] SCREENING DIGITAL (09/03/2022 8:59 AM EDT) Anatomical Region Laterality Modality Mammography 08/31/2022 10:1 7 AM EDT Narrative 09/03/2022 8:59 AM EDT [facility] Diagnostic Imaging Department [address] [place], [place] [id number] Patient: ??TIBURCIO ZELAYA ?/Age/Sex: 1960 - 61 - F Unit#: ??[id number] ? Location/Status: ??SPDIMAM/PRE CLI ? Mnemonic/Ordering Site: ??DIGSC/SPMAM Ordering Physician: ??JEWEL NUÑEZ MD [facility] Screening Digital - 09/02/22 - 1004 EXAM: [facility] Screening Digital EXAM DATE AND TIME: 09/02/2022 10:04 AM HISTORY: ??Annual screening mammography. ??Limited mobility of the right shoulder due to injury. COMPARISON: ??09/25/2020 through 12/31/2015. TECHNIQUE: CC and MLO views of both breasts were obtained using full field digital mammography. Bilateral digital breast tomosynthesis was performed in the MLO projection. 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 TISSUE DENSITY: a. The breasts are almost entirely fatty. FINDINGS: No suspicious masses, grouped microcalcifications, or areas of architectural distortion are seen. ??Stable benign calcifications are noted. ??The skin and vascularity are unremarkable. IMPRESSION: Stable mammographic appearance of the breasts. ??No evidence of malignancy is seen. A negative mammogram in the presence of a clinically suspicious palpable abnormality does not preclude the possibility of malignancy or alter the indications for biopsy. BI-RADS: ??Category 2: Benign RECOMMENDATION(S): 1: Routine screening mammogram BILATERAL in 1 year. 35443, 78890 3342F, 7025F Dictating Physician: ??AMARILIS PRESTON MD Electronically Signed by: ??AMARILIS PRESTON MD Dic Date/Time: ??09/03/22 0856 Sign date/Time: ??09/03/22 0859 Procedure Note Lisa Preston MD - 11/01/2022 [facility] Diagnostic Imaging Department [address] [place] [id number] Patient: TIBURCIO ZELAYA/Age/Sex: 1960 - 61 - F Unit#: [id number] Location/Status: SPDIMAM/PRE CLI Mnemonic[facility]Ordering Site[facility] Ordering Physician: JEWEL NUÑEZ MD [facility] Screening Digital - 09/02/22 - 1004 EXAM: [facility] Screening Digital EXAM DATE AND TIME: 09/02/2022 10:04 AM HISTORY: Annual screening mammography. Limited mobility of the rightshoulder due to injury. COMPARISON: 09/25/2020 through 12/31/2015. TECHNIQUE: CC and MLO views of both breasts were obtained using fullfield digital mammography. Bilateral digital breast tomosynthesis was performedin the MLO projection. 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 TISSUE DENSITY: a. The breasts are almost entirely fatty. FINDINGS: No suspicious masses, grouped microcalcifications, or areas ofarchitectural distortion are seen. Stable benign calcifications are noted. The skinand vascularity are unremarkable. IMPRESSION: Stable mammographic appearance of the breasts. No evidence of malignancyis seen. A negative mammogram in the presence of a clinically suspicious palpable abnormality does not preclude the possibility of malignancy or alter the indications for biopsy. BI-RADS: Category 2: Benign RECOMMENDATION(S): 1: Routine screening mammogram BILATERAL in 1 year. 53069, 35063 3342F, 7025F Dictating Physician: AMARILIS PRESTON MD Electronically Signed by: AMARILIS PRESTON MD Dic Date/Time: 09/03/2256 Sign date/Time: 09/03/22858 Jewel Nuñez MD IMG BI PROCEDURES * [facility] DEXA AXIAL SKELETON (12/20/2020 3:43 PM EST) Anatomical Region Laterality Modality Mammography 12/20/2020 2:40 PM EST Narrative 12/20/2020 3:43 PM EST [facility] Diagnostic Imaging Department [address] [place] [address] Patient: ??TIBURCIO ZELAYA ?/Age/Sex: 1960 - - F Unit#: ??[id number] ? Location/Status: ??SPDIMAM/REG CLI ? Mnemonic/Ordering Site: ??MAMDEXAAX/SPMAM Ordering Physician: ??ENEIDA PAYAN NP [facility] Dexa Axial Skeleton - 12/20/201531 HISTORY: ??The patient is a 60-year-old postmenopausal female with clinical concern for metabolic bone disease. FINDINGS: ??Dual energy x-ray absorptiometry of the lumbar spine and femurs is performed. The mean bone mineral density at L1-2 is 1.310 gm/cm2 which is 112% of that of young normals and 115% of that of age matched controls. This yields a T-score of 1.2 and a Z-score of 1.4 and there is therefore no evidence of osteoporosis or osteopenia here. The mean bone mineral density of the femurs bilaterally is 0.972 gm/cm2 which is 96% of that of young normals and 99% of that of age matched controls. ??This yields a T-score of -0.3 and a Z-score of -0.1 and there is therefore no evidence of osteoporosis or osteopenia here. ??However, the T-score of the right femoral neck is -1.5 which is diagnostic of osteopenia. IMPRESSION: 1. Osteopenia. 2. FRAX analysis yields a 10-year probability of major osteoporotic fracture of 7.6% and a 10-year probability of hip fracture of 0.7%. Code 78322 Dictating Physician: ??TERRIE MARIA MD Electronically Signed by: ??TERRIE MARIA MD Dic Date/Time: ??12/20/201541 Sign date/Time: ??12/20/201542 Procedure Note Terrie Maria MD - 10/31/2022 [facility] Diagnostic Imaging Department [address] [place] [address] Patient: ELSIECARLOSTIBURCIOJOANNE Siddiqui./Age/Sex: 1960 - 60 - F Unit#: [id number] Location/Status: [facility] Mnemonic/Ordering Site: [facility] Ordering Physician: ENEIDA PAYAN NP [facility] Dexa Axial Skeleton - 12/20/201531 HISTORY: The patient is a 60-year-old postmenopausal female withclinical concern for metabolic bone disease. FINDINGS: Dual energy x-ray absorptiometry of the lumbar spine and femursis performed. The mean bone mineral density at L1-2 is 1.310 gm/cm2 which is112% of that of young normals and 115% of that of age matched controls. Thisyields a T-score of 1.2 and a Z-score of 1.4 and there is therefore no evidenceof osteoporosis or osteopenia here. The mean bone mineral density of the femurs bilaterally is 0.972 gm/mk9pxjqw is 96% of that of young normals and 99% of that of age matched controls.This yields a T-score of -0.3 and a Z-score of -0.1 and there is therefore no evidence of osteoporosis or osteopenia here. However, the T-score of theright femoral neck is -1.5 which is diagnostic of osteopenia. IMPRESSION: 1. Osteopenia. 2. FRAX analysis yields a 10-year probability of major osteoporoticfracture of 7.6% and a 10-year probability of hip fracture of 0.7%. Code 86517 Dictating Physician: TERRIE MARIA MD Electronically Signed by: TERRIE MARIA MD Dic Date/Time: 12/20/20 1542 Sign date/Time: 12/20/20 1543 Eneida Payan NP [facility] BI PROCEDURES from Last 3 Months or Most Recently Relevant to Health Maintenance
--- OUTSIDE RECORDS SUMMARY | 2024-12-10 11:29 | XMS_ITS ---
Author Organization [facility] Address [address] [place] [address] Care Team Providers Care Records Management Technician Name Role Phone Jewel Nuñez MD Primary Care Provider Jean Carlos Meadows Unavailable [phone] Freda Patel Unavailable Unavailable REASON FOR VISIT gerd,screening,hx polyps PROBLEMS Problem Type ICD Code Onset Dates Problem Status W/U Status Risk SNOMED Code Notes Problem Diverticulosis of large intestine without perforation or abscess without bleeding (K57.30) Active confirmed Diverticul ar disease of colon (249090056) Problem Gastroesophageal reflux disease (K21.9) Active confirmed Gastroesophagea l reflux disease (513374891) 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
--- OUTSIDE RECORDS SUMMARY | 2024-12-10 11:30 | XMS_ITS ---
Author Organization [facility] Address [address] [place] [address] Care Team Providers Care Hotel Service Manager Name Role Phone Jewel Nuñez MD Primary Care Provider Jean Carlos Meadows Unavailable [phone] Freda Patel Unavailable Unavailable REASON FOR VISIT Trulicity-speak with the [facility] office Encounters Encounter Location Date Provider Diagnosis [facility] [address] [place] [address] 10/21/2023 Jean Carlos Martínez PLAN OF TREATMENT No Information
== END 2024-12-10 10:19 | disposition home or self-care (01) ==
LOC: HO.ACS 09:47
PROVIDERS: PCP Internal Medicine; Visit Provider Internal Medicine
DX: Z79.01 Long term (current) use of anticoagulants (principal)

== ENCOUNTER 2024-12-31 09:50 | Outpatient (AMB) | payer MEDICARE, OTHER, SELFPAY ==
--- NOTE | 2024-12-31 10:03 | MHC.OFFVISCO ---
Intake Intake Visit Reasons: Anticoagulation Allergies droperidol [From INAPSINE] Allergy (Severe, Verified 12/31/24 09:55) Anaphylaxis egg [EGG] Allergy (Severe, Verified 12/31/24 09:55) Nausea and Vomiting latex [LATEX] Allergy (Severe, Verified 12/31/24 09:55) HIVES metformin [METFORMIN] Allergy (Severe, Verified 12/31/24 09:55) DIZZINESS AND NAUSEA penicillin V Allergy (Severe, Verified 12/31/24 09:55) RASH codeine [CODEINE] Allergy (Intermediate, Verified 12/31/24 09:55) Rash Hydrocodone Bitartrate Allergy (Intermediate, Uncoded 12/31/24 09:55) Rash Medication List - Last Reconciled 12/31/24 by Gianna Heard RN atorvastatin 40 mg PO DAILY blood sugar diagnostic As directed celecoxib 1 cap PO BID cholecalciferol (vitamin D3) (Vitamin D3) 50 mcg PO DAILY empagliflozin 25 mg PO DAILY fluticasone propionate 50 mcg/actuation 2 sprays intranasal DAILY lisinopril 5 mg PO DAILY loratadine (Claritin) 10 mg PO DAILY omeprazole 1 cap PO DAILY tirzepatide (Mounjaro) 5 mg subcut QWEEK warfarin See Protocol 5MG X4DAYS/7.5MG MWF; Nursing Note INR 4.1-?? out of therapeutic range of 2-3 Medications and supplements reviewed Patient status: pt with cold s/s Medications or supplements: no changes, taking tylenol prn , Diet: appetite same Denies any signs and symptoms of bleeding or clotting or unusual bruising Bleeding, bruising, clotting discussed Nutritional guidance given: eat greens to lower Dose: hold warfarin today then cont 7.5mg x 3 5mg x 4 F/U INR Date : 2 weeks Patient verbalizing understanding of instructions given. 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
[2024-12-31 10:06] LABS: Prothrombin Time Whole Bld POC 49.7 sec (11.1-13.5); ~PT, ~INR - Anti Coag Clinic 4.1 (0.9-1.1)
--- OUTSIDE RECORDS SUMMARY | 2024-12-31 10:13 | XMS_ITS ---
Author Organization [facility] Address [address] [place] [address] Care Team Providers Care Financial Accountant Name Role Phone Jewel Nuñez MD Primary Care Provider Jean Carlos Meadows Unavailable [phone] Freda Patel Unavailable Unavailable REASON FOR VISIT gerd,screening,hx polyps PROBLEMS Problem Type ICD Code Onset Dates Problem Status W/U Status Risk SNOMED Code Notes Problem Diverticulosis of large intestine without perforation or abscess without bleeding (K57.30) Active confirmed Diverticul ar disease of colon (314976674) Problem Gastroesophageal reflux disease (K21.9) Active confirmed Gastroesophagea l reflux disease (423856311) 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
--- OUTSIDE RECORDS SUMMARY | 2024-12-31 10:13 | XMS_ITS | Clinical Summary ---
Author Organization [facility] ity Address [address] [place] [address] Care Team Providers Care Plant Operator Control Room Operator Name Role Phone Unavailable Primary Care Provider Unavailabl e Social History Tobacco Use Types Packs/Day Years Used Date Smoking Tobacco: Never Assessed Comments Unknown Sex and Gender Information Value Date Recorded Sex Assigned at Not on file Legal Sex Female 3:09 AM EST Gender Identity Not on file Sexual Orientation Not on file Plan of Treatment Health Maintenance Due Date Last Done Comments DTaP,Tdap,and Td Vaccines (1 - Tdap) 1977 Pneumococcal Vaccine: 50+ Years (1 of 1 - PCV) 2008 Zoster Vaccines (1 of 2) 2008 Colorectal Cancer Screening: Colonoscopy 10/15/2022 Depression Screening 10/15/2022 Hepatitis C Screening 10/15/2022 Social Influencers of Health Screening 10/15/2022 Falls Risk Assessment 2023 COVID-19 Vaccine ( - season) 2024 Influenza Vaccine (#1) 2024 Breast [...] patient's age to complete this topic Meningococcal B Vacine Aged Out No lo nger eligible based on patient's age to complete this topic RSV Immunization Patients Under 20 months Aged Out No longer eligible based on patient's age to complete this topic Varicella Vaccines Aged Out No longer eligible based on patient's age to complete this topic Procedures Procedure Name Priority Date/Time Associated Diagnosis Comments [facility] SCREENING DIGITAL Routine 09/03/2022 8:59 AM EDT Encounter for screening mammogram for malignant neoplasm of breast [facility] DEXA AXIAL SKELETON Routine 12/20/2020 3:43 PM EST Encounter for screening for osteoporosis from Last 3 Months or Most Recently Relevant to Health Maintenance Results * [facility] SCREENING DIGITAL (09/03/2022 8:59 AM EDT) Anatomical Region Laterality Modality Mammography 08/31/2022 10:1 7 AM EDT Narrative 09/03/2022 8:59 AM EDT [facility] Diagnostic Imaging Department [address] [place] [address] Patient: ??TIBURCIO ZELAYA ?/Age/Sex: 1960 - 61 - F Unit#: ??[id number] ? Location/Status: ??SPDIMAM/PRE CLI ? Mnemonic/Ordering Site: ??DIGSC/SPMAM Ordering Physician: ??JEWEL NUÑEZ MD [facility] Screening Digital - 09/02/22 - 1004 EXAM: [facility] Screening Digital EXAM DATE AND TIME: 09/02/2022 10:04 AM HISTORY: ??Annual screening mammography. ??Limited mobility of the right shoulder due to injury. COMPARISON: ??09/25/2020 through 12/31/2015. TECHNIQUE: CC and MLO views of both breasts were obtained using full field digital mammography. Bilateral digital breast tomosynthesis was performed in the MLO projection. 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 TISSUE DENSITY: a. The breasts [...] Routine screening mammogram BILATERAL in 1 year. 31225, 29796 3342F, 7025F Dictating Physician: ??AMARILIS PRESTON MD Electronically Signed by: ??AMARILIS PRESTON MD Dic Date/Time: ??09/03/22 0856 Sign date/Time: ??09/03/22 0859 Procedure Note Lisa Preston MD - 11/01/2022 [facility] Diagnostic Imaging Department [address] [place] [address] Patient: TIBURCIO ZELAYA D.O.B./Age/Sex: 1960 - 61 - F Unit#: [id number] Location/Status: SPDIMAM/PRE CLI Mnemonic/Ordering Site: [facility] Ordering Physician: JEWEL NUÑEZ MD [facility] Screening Digital - 09/02/22 - 1004 EXAM: [facility] Screening Digital EXAM DATE AND TIME: 09/02/2022 10:04 AM HISTORY: Annual screening mammography. Limited mobility of the rightshoulder due to injury. COMPARISON: 09/25/2020 through 12/31/2015. TECHNIQUE: CC and MLO views of both breasts were obtained using fullfield digital mammography. Bilateral digital breast tomosynthesis was performedin the MLO projection. 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 TISSUE DENSITY: a. The breasts are [...] Routine screening mammogram BILATERAL in 1 year. 31068, 53258 3342F, 7025F Dictating Physician: AMARILIS PRESTON MD Electronically Signed by: AMARILIS PRESTON MD Dic Date/Time: 09/03/2256 Sign date/Time: 09/03/2259 Jewel Nuñez MD IMG BI PROCEDURES Final Result * [facility] DEXA AXIAL SKELETON (12/20/2020 3:43 PM EST) Anatomical Region Laterality Modality Mammography 12/20/2020 2:40 PM EST Narrative 12/20/2020 3:43 PM [facility] Diagnostic Imaging Department [address] [place] [address] Patient: ??TIBURCIO ZELAYA ?/Age/Sex: 1960 - 60 - F Unit#: ??[id number] ? [facility] Mnemonic/Ordering Site: ??MAMDEXAAX/SPMAM Ordering Physician: ??ENEIDA PAYAN NONPROFIT FINANCIAL CONTROLLER [facility] Dexa Axial Skeleton - 12/20/201531 HISTORY: ??The [...] probability of hip fracture of 0.7%. Code 18641 Dictating Physician: ??TERRIE MARIA MD Electronically Signed by: ??TERRIE MARIA MD Dic Date/Time: ??12/20/201541 Sign date/Time: ??12/20/201542 Procedure Note Terrie Maria MD - 10/31/2022 [facility] Diagnostic Imaging Department [address] [place] [address] Patient: ELSIECARLOSTIBURCIOJOANNE Espana D.O.B./Age/Sex: 1960 - 60 - F Unit#: [id number] Location/Status: [facility] Mnemonic/Ordering Site: [facility] Ordering Physician: ENEIDA PAYAN NP [facility] Dexa Axial Skeleton - 12/20/201531 HISTORY: The [...] density of the femurs bilaterally is 0.972 gm/ib8tsxwx is 96% of that of young normals [...] probability of hip fracture of 0.7%. Code 14602 Dictating Physician: TERRIE MARIA MD Electronically Signed by: TERRIE MARIA MD Dic Date/Time: 12/20/20 1542 Sign date/Time: 12/20/20 1543 us Eneida Payan NP IMG BI PROCEDURES Final Resul t from Last 3 Months or Most Recently Relevant to Health Maintenance
--- OUTSIDE RECORDS SUMMARY | 2024-12-31 10:13 | XMS_ITS ---
Author Organization [facility] Address [address] [place] [address] Care Team Providers Care Potato Chip Packaging Machine Operator Name Role Phone Jewel Nuñez MD Primary Care Provider Jean Carlos Meadows Unavailable [phone] Freda Patel Unavailable Unavailable ALLERGIES Allergen (clinical [...] 07/19/2023 Encounters Encounter Location Date Provider Diagnosis [facility] [address] [place] [address] 07/19/2023 Jean Carlos Martínez Gastroesophageal ref lux [...]
--- OUTSIDE RECORDS SUMMARY | 2024-12-31 10:14 | XMS_ITS | Patient Health Record ---
Author Organization [facility] Address [address] [place] [address] Care Team Providers Care Marketing Finance Specialist Name Role Phone Jewel Nuñez MD Primary Care Provider Jean Carlos Meadows Unavailable [phone] Freda Patel Unavailable Unavailable ALLERGIES Allergen (clinical [...] 20 MG TAKE 1 CAPSULE BY [facility] EVERY DAY for 90 Active Warfarin Sodium [...] malignant neoplasm of colon (Z12.11) Active confirmed 622194062 Problem History of adenomatous polyp of colon (Z86.010) Active confirmed 920203866 Problem 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) Active confirmed 501471659 Problem Diverticulosis of large intestine without perforation or abscess without bleeding (K57.30) Active confirmed Diverticul ar disease of colon (955087584) Problem Gastroesophageal reflux disease (K21.9) Active confirmed Gastroesophagea l reflux disease (802368863) Problem Gastroesophageal reflux disease without esophagitis (K21.9) Active confirmed 991739445 Problem Tubular adenoma of colon (D12.6) Active confirmed 501098470 Problem Gastroesophageal reflux disease, esophagitis presence not specified (K21.9) Active confirmed 801188695 Problem Gastritis (K29.70) Active confirmed Gas tritis (2827576) 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 Mccormack esophag us (094861145) PLAN OF TREATMENT Future Test Test Name Order Date COLONOSCOPY 11/27/2012 UPPER GI ENDOSCOPY 09/02/2019 COLONOSCOPY 09/02/2019 COLONOSCOPY 03/30/2020 UPPER GI ENDOSCOPY 07/19/2023 COLONOSCOPY 07/19/2023 Insurance Providers Payer Name Payer Address Payer Phone Subscriber Number Group Number Insured Name Patient Relationship to Insured Coverage Start Date Coverage End Date [facility] [address] [place] [address] [id number] TIBURCIO MARCANO Self - patient is the insured MEDICAL (GENERAL) HISTORY Medical History History ICD Code HTN Denies VT,CVA,Lung disease,renal disease Polycythemia vera since 2010-gets a [...]
--- OUTSIDE RECORDS SUMMARY | 2024-12-31 10:14 | XMS_ITS ---
Author Organization [facility] Address [address] [place] [address] Care Team Providers Care Turner Off Name Role Phone Jewel Nuñez MD Primary Care Provider Jean Carlos Meadows Unavailable [phone] Freda Patel Unavailable Unavailable REASON FOR VISIT Trulicity-speak with the [facility] office Encounters Encounter Location Date Provider Diagnosis [facility] [address] [place] [address] 10/21/2023 Jean Carlos Martínez PLAN OF TREATMENT No Information
== END 2024-12-31 10:22 | disposition home or self-care (01) ==
LOC: HO.ACS 09:50
PROVIDERS: PCP Internal Medicine; Visit Provider Internal Medicine
DX: Z79.01 Long term (current) use of anticoagulants (principal)

== ENCOUNTER → 2024-12-31 09:50 | Outpatient (BNVA) | payer MEDICARE, OTHER, SELFPAY | PROVIDERS: PCP Internal Medicine; Visit Provider Internal Medicine | DX: I82.503 Chronic embolism and thrombosis of unspecified deep veins of lower extremity, bilateral (principal); Z79.01 Long term (current) use of anticoagulants; Z51.81 Encounter for therapeutic drug level monitoring | CPT/HCPCS: 85610; 99211 ==

== ENCOUNTER 2025-01-14 10:04 | Outpatient (AMB) | payer MEDICARE, OTHER, SELFPAY ==
[2025-01-14 10:13] LABS: Prothrombin Time Whole Bld POC 29.9 sec (11.1-13.5); ~PT, ~INR - Anti Coag Clinic 2.5 (0.9-1.1)
--- NOTE | 2025-01-14 10:20 | MHC.OFFVISCO ---
Intake Intake Visit Reasons: Anticoagulation Allergies droperidol [From INAPSINE] Allergy (Severe, Verified 01/14/25 10:08) Anaphylaxis egg [EGG] Allergy (Severe, Verified 01/14/25 10:08) Nausea and Vomiting latex [LATEX] Allergy (Severe, Verified 01/14/25 10:08) HIVES metformin [METFORMIN] Allergy (Severe, Verified 01/14/25 10:08) DIZZINESS AND NAUSEA penicillin V Allergy (Severe, Verified 01/14/25 10:08) RASH codeine [CODEINE] Allergy (Intermediate, Verified 01/14/25 10:08) Rash Hydrocodone Bitartrate Allergy (Intermediate, Uncoded 12/31/24 09:55) Rash Medication List - Last Reconciled 01/14/25 by Rebecca Crook RN atorvastatin 40 mg PO DAILY blood sugar diagnostic As directed celecoxib 1 cap PO BID cholecalciferol (vitamin D3) (Vitamin D3) 50 mcg PO DAILY empagliflozin 25 mg PO DAILY fluticasone propionate 50 mcg/actuation 2 sprays intranasal DAILY lisinopril 5 mg PO DAILY loratadine (Claritin) 10 mg PO DAILY omeprazole 1 cap PO DAILY tirzepatide (Mounjaro) 5 mg subcut QWEEK warfarin See Protocol 5MG X4DAYS/7.5MG MWF; Nursing Note NO CP,SOB,DIET/MED CHANGES,FALLS OR SX OF BLEEDING. CONTINUE PRESENT DOSE AND FOLLOW-UP IN 3 WEEKS. GOOD UNDERSTANDING OF DOSING INSTR. 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
--- OUTSIDE RECORDS SUMMARY | 2025-01-14 11:50 | XMS_ITS ---
Author Organization [facility] Address [address] [place] [address] Care Team Providers Care Buckle Frame Shaper Name Role Phone Jewel Nuñez MD Primary Care Provider Jean Carlos Meadows Unavailable [phone] Freda Patel Unavailable Unavailable Allergies Allergen (clinical drug ingredient) Drug/Non Drug Allergy [...] for a colonoscopy & upper endo recall Medications Medication SIG (Take, Route, Frequency, Duration) Notes [...] EVERY DAY Orally Once a day Active Social History Tobacco Use: Social History Observation Description Date Details (start date - stop date) Former Smoker NA - NA Tobacco Use/Smoking Question Answer Notes Patient is a former smoker How long has it been since you last smoked? 6-12 months Alcohol Screen Question Answer Notes Did you have a drink containing alcohol in the p ast year? No Points 0 Interpretation Negative Section Notes: Nonsmoker since 10/2018; no alcohol Vital Signs Temperature 97.1 degrees Fahrenheit 07/19/20 23 Blood pressure systolic 000 mm Hg 07/19/20 23 Blood pressure diastolic 00 mm Hg 023 Height 69.50 in 07/19/2023 Weight 220 lbs 07/19/2023 BMI 32.02 kg/m2 07/19/2023 Encounters Encounter Location Date Provider Diagnosis [facility] [address] [place] [address] 07/19/2023 Jean Carlos Martínez Gastroesophageal ref lux disease, esophagitis presence not specified K21.9 ; Mccormack's esophagus without dysplasia K22.70 ; History of adenomatous polyp of colon Z86.010 ; Encounter for screening for malignant neoplasm of colon Z12.11 and Tubular adenoma of colon D12.6 Assessments Encounter Date Diagnosis (ICD Code) Assessment Notes Treatment Notes Treatment Clinical Notes Section Notes 07/19/2023 Gastroesophageal reflux disease, esophagitis presence not specified (ICD-10 - K21.9) Overall, Tiburcio appears well. I did recommend an upper endoscopy for followup in regard to the small area of Mccormack's esophagus found in 2019. We did review the theoretical increased risk of esophageal cancer in patient with Mccormack's esophagus and the need for periodic surveillance biopsies. I also recommended a colonoscopy on the same day given her history of adenomas and last colonoscopy coming up on the three-year dada. We did review the rationale for colonoscopy in regard to colon cancer prevention. Full consent was obtained from her for both procedures, including risks of bleeding and perforation. The procedures will be done with monitored anesthesia care. She was given the below instructions regarding adjustment of her medications for the procedure and she will speak with Dr. Hurst in regard to obtaining a prescription for Lovenox while off of her warfarin. Tiburcio was comfortable with this plan. Thank you again for allowing me to participate in Tiburcio's care. I shall continue to keep you advised of her progress. 07/19/2023 Mccormack's esophagus without dysplasia (ICD-10 - K22.70) Overall, Tiburcio appears well. I did recommend an upper endoscopy for followup in regard to the small area of Mccormack's esophagus found in 2019. We did review the theoretical increased risk of esophageal cancer in patient with Mccormack's esophagus and the need for periodic surveillance biopsies. I also recommended a colonoscopy on the same day given her history of adenomas and last colonoscopy coming up on the three-year dada. We did review the rationale for colonoscopy in regard to colon cancer prevention. Full consent was obtained from her for both procedures, including risks of bleeding and perforation. The procedures will be done with monitored anesthesia care. She was given the below instructions regarding adjustment of her medications for the procedure and she will speak with Dr. Hurst in regard to obtaining a prescription for Lovenox while off of her warfarin. Tiburcio was comfortable with this plan. Thank you again for allowing me to participate in Tiburcio's care. I shall continue to keep you advised of her progress. 07/19/2023 History of adenomatous polyp of colon (ICD-10 - Z86.010) Overall, Tiburcio appears well. I did recommend an upper endoscopy for followup in regard to the small area of Mccormack's esophagus found in 2019. We did review the theoretical increased risk of esophageal cancer in patient with Mccormack's esophagus and the need for periodic surveillance biopsies. I also recommended a colonoscopy on the same day given her history of adenomas and last colonoscopy coming up on the three-year dada. We did review the rationale for colonoscopy in regard to colon cancer prevention. Full consent was obtained from her for both procedures, including risks of bleeding and perforation. The procedures will be done with monitored anesthesia care. She was given the below instructions regarding adjustment of her medications for the procedure and she will speak with Dr. Hurst in regard to obtaining a prescription for Lovenox while off of her warfarin. Tiburcio was comfortable with this plan. Thank you again for allowing me to participate in Tiburcio's care. I shall continue to keep you advised of her progress. 07/19/2023 Encounter for screening for malignant neoplasm of colon (ICD-10 - Z12.11) Stop Warfarin for 5 days before the procedures and speak with Dr. Hurst about the Lovenox injections Do not take the Jardiance the day before nor on the day of the procedures. We will do the procedures on a Sunday and you will keep taking your Trulicity on Saturdays. Overall, Tiburcio appears well. I did recommend an upper endoscopy for followup in regard to the small area of Mccormack's esophagus found in 2019. We did review the theoretical increased risk of esophageal cancer in patient with Mccormack's esophagus and the need for periodic surveillance biopsies. I also recommended a colonoscopy on the same day given her history of adenomas and last colonoscopy coming up on the three-year dada. We did review the rationale for colonoscopy in regard to colon cancer prevention. Full consent was obtained from her for both procedures, including risks of bleeding and perforation. The procedures will be done with monitored anesthesia care. She was given the below instructions regarding adjustment of her medications for the procedure and she will speak with Dr. Hurst in regard to obtaining a prescription for Lovenox while off of her warfarin. Tiburcio was comfortable with this plan. Thank you again for allowing me to participate in Tiburcio's care. I shall continue to keep you advised of her progress. 07/19/2023 Tubular adenoma of colon (ICD-10 - D12.6) Overall, Tiburcio appears well. I did recommend an upper endoscopy for followup in regard to the small area of Mccormack's esophagus found in 2019. We did review the theoretical increased risk of esophageal cancer in patient with Mccormack's esophagus and the need for periodic surveillance biopsies. I also recommended a colonoscopy on the same day given her history of adenomas and last colonoscopy coming up on the three-year dada. We did review the rationale for colonoscopy in regard to colon cancer prevention. Full consent was obtained from her for both procedures, including risks of bleeding and perforation. The procedures will be done with monitored anesthesia care. She was given the below instructions regarding adjustment of her medications for the procedure and she will speak with Dr. Hurst in regard to obtaining a prescription for Lovenox while off of her warfarin. Tiburcio was comfortable with this plan. Thank you again for allowing me to participate in Tiburcio's care. I shall continue to keep you advised of her progress. Plan Of Treatment Treatment Notes Assessment Notes Encounter for screening [...] Follow Up: prn, Reason: Progress Notes * TIBURCIO MARCANO ADOB: (62 yo F)Acc No.[id number]:07/19/2023 Progress Notes Patient:?HAYLIE MARCANO Provider:?Jean Carlos Martínez MD :1960???Age:62 Y???Sex:Female D ate:07/19/2023 Address:[address] [place] [address] Pcp:Jewel Nuñez MD Subjective: * Chief Complaints: * ???1. Patient presents today for a colonoscopy & upper endo recall. * HPI: ???incontinence:? I saw Tiburcio is followup today in regard to her chronic gastroesophageal reflux with associated Mccormack's esophagus, personal history of tubular adenomas of the colon, and need for colorectal cancer screening. ?I last saw Tiburcio in October of 2020, at which time she underwent a followup colonoscopy. This revealed no sign of any residual adenomatous tissue on the ileocecal valve at the site of the previous polypectomy. A single tubular adenoma was removed from the ascending colon. Since the procedure she has been doing well. She enjoys a good appetite on her daily omeprazole and denies any significant heartburn or dysphagia. She does describe occasional symptoms of nocturnal heartburn but she can usually relate this to having had something to eat or drink that was not particularly healthy or having eaten too close to bedtime. Her bowel movements have been regular and without any sign of bleeding. She denies any abdominal pain, jaundice, nor weight loss. * ROS:?General/Constitutional:?Change in appetite?denies.?Chills?denies.?Fatigue?denies.?Ophthalmologic:?Patient denies? Negative..?ENT:?Patient denies?Negative..?Respiratory:?Patient denies?No coughing/hemoptysis..?Cardiovascular:?Patient denies? No chest pain/orthopnea..?Gastrointestinal:?Comments?See HPI for details.?Genitourinary:?Patient denies? No dysuria/hematuria..?Musculoskeletal:?Patient denies? No specific arthralgias/myalgias..?Skin:?Patient denies?No rash/pruritus..?Neurologic:?Patient denies? No headaches/seizures..?Psychiatric:?Patient denies?Negative..? * Medical History:?HTN, Denies AK,CVA,Lung disease,renal disease, Polycythemia vera since 2010-gets a phlebotomy Q 8 weeks-sees Dr. Hurst, 2 DVT's in , Reports an ulcer in her 's, DM, Arthrits, Bursitis, Kidneystones in early , Colonoscopy 12/2012 with 3 tubular adenomas removed, GERD upper endoscopy in October 2019 revealed a small hiatal hernia and small area of Mccormack's esophagus. There was no esophagitis and biopsies from the Mccormack's mucosa were negative for dysplasia-, Colonoscopy in October 2019 revealed 2 tubular adenomas in the cecum which were removed and a flat tubular adenoma of the ileocecal valve that was removed as well, Colonoscopy 10/2020 revealed no residual polyp tissue on the ileocecal valve and just a single tubular adenoma removed from the ascending colon. * Surgical History:?Cholecyste ctomy , Back surgery , , Hysterectomy with BSO . * Family History:?Father: dece ased.?Mother: alive.? Denies family hx. of colorectal cancer. * Social History:?Tobacco Use:?Tobacco Use/Smoking?Patient is a?former smoker,?How long has it been since you last smoked??6-12 months.?Drugs/Alcohol:?Alcohol Screen?Did you have a drink containing alcohol in the past year??No,?Points?0,?Interpretation?Negative.?Miscellaneous:?Marital status: . 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 ???Nonsmoker since 10/2018; no alcohol. * Medications:?Taking Lisinopr il 10 MG Tablet 1 tablet Orally Once a day, Taking Warfarin Sodium 5 MG Tablet as directed Orally Once a day, Taking Atorvastatin Calcium 40 MG Tablet TAKE 1 TABLET (20 MG TOTAL) BY MOUTH DAILY. Orally Once a day, Taking Jardiance 25 MG Tablet TAKE 1 TABLET BY MOUTH EVERY DAY Orally Once a day, Taking Celecoxib 200 MG Capsule TAKE 1 CAPSULE BY MOUTH TWICE A DAY Oral , Taking Trulicity 3 MG/0.5ML Solution Pen-injector INJECT 1.5 ML UNDER THE SKIN EVERY 7 DAYS. Subcutaneous once a week, Taking Fluticasone Propionate 50 MCG/ACT Suspension SPRAY 2 SPRAYS BY NASAL ROUTE DAILY. Nasal , Taking Vitamin D3 2000 UNIT Capsule 1 capsule Orally Once a day, Taking ZyrTEC Allergy 10 MG Tablet 1 tablet Orally Once a day, Taking Omeprazole 20 MG Capsule Delayed Release 1 Orally Every morning, Medication List reviewed and reconciled with the patient * Allergies:?Latex Gloves: don h, Codeine Sulfate: palptations, Inapsine, Penicillin, Vicodin, Metformin HCl: nausea and vomiting, Hydrocodone-Acetaminophen: nausea. Objective: * Vitals:?Wt:220 lbs, Ht: 69.5 0 in, BMI:32.02 Index, BP:000/00 mm Hg, Temp:97.1. * Examination: ???General Examination: ?GENERAL APPEARANCE:?pleasant, well nourished, well developed, in no acute distress.?EYES:?sclera non-icteric.?ORAL CAVITY:?mucosa moist.?NECK/THYROID:?no cervical lymphadenopathy, neck supple.?SKIN:?nonjaundiced, no spider angiomata..?HEART:?S1, S2 normal.?LUNGS:?clear to auscultation bilaterally.?ABDOMEN:?normal bowel sounds, no guarding or rigidity, no hepatosplenomegaly, no masses palpable, soft, nontender, nondistended..?EXTREMITIES:?no edema.?NEUROLOGIC:?alert and oriented.? Assessment: * Assessment: 1.?Mccormack's esophagus witho ut dysplasia - K22.70 (Primary)?2.?Gastroesophageal reflux disease, esophagitis presence not specified - K21.9?3.?History of adenomatous polyp of colon - Z86.010?4.?Encounter for screening for malignant neoplasm of colon - Z12.11?5.?Tubular adenoma of colon - D12.6? Overall, Tiburcio appears w ell. I did recommend an upper endoscopy for followup in regard to the small area of Mccormack's esophagus found in 2019. We did review the theoretical increased risk of esophageal cancer in patient with Mccormack's esophagus and the need for periodic surveillance biopsies. I also recommended a colonoscopy on the same day given her history of adenomas and last colonoscopy coming up on the three-year dada. We did review the rationale for colonoscopy in regard to colon cancer prevention. Full consent was obtained from her for both procedures, including risks of bleeding and perforation. The procedures will be done with monitored anesthesia care. She was given the below instructions regarding adjustment of her medications for the procedure and she will speak with Dr. Hurst in regard to obtaining a prescription for Lovenox while off of her warfarin. Tiburcio was comfortable with this plan. Thank you again for allowing me to participate in Tiburcio's care. I shall continue to keep you advised of her progress. Plan: * Treatment: 2.?Gastroesophageal reflux disease, esophagitis presence not specified?Procedure: UPPER GI ENDOSCOPY (Ordered for 07/19/2023)* with MACsched for 10/26/23 a t 9:00 am 3.?History of adenomatous polyp of colon?Procedure: COLONOSCOPY (Ordered for 07/19/2023)* with MACsched for 10/26/23 a t 9:00 ammiralax 4.?Encounter for screening for malignant neoplasm of colon?Procedure: COLONOSCOPY (Ordered for 07/19/2023)* with MACsched for 10/26/23 a t 9:00 ammiralax Notes: Stop Warfarin for 5 days before the procedures and speak with Dr. Hurst about the Lovenox injections Do not take the Jardiance the day before nor on the day of the procedures. We will do the procedures on a Sunday and you will keep taking your Trulicity on Saturdays.? * Procedure Codes:?3017F COLOR ECTAL CA SCREEN DOC REV, 1036F TOBACCO NON-USER, G8785 BP SCR NOT PRFRM REC REASON NOS * Preventive Medicine:? ??Counseling:?Care goal follow-up plan:?Above Normal BMI Follow-up?Giving encouragement to exercise,?BMI management provided?Yes.? * Follow Up:?prn * * Sign off status: Completed true * Provider:?Jean Carlos Martínez MD Date:? 023 Generated for Mg camejo/Fidelia/Meenasmitting on:?01/14/2025 11:50 AM EST History and Physical Notes * HPI (History of Present Illness) Category Sub-Category Detail Notes Category Not es incontinence I saw Tiburcio is followup today in regard to her chronic gastroesophageal reflux with associated Mccormack's esophagus, personal history of tubular adenomas of the colon, and need for colorectal cancer screening. I last saw Tiburcio in October of 2020, at which time she underwent a followup colonoscopy. This revealed no sign of any residual adenomatous tissue on the ileocecal valve at the site of the previous polypectomy. A single tubular adenoma was removed from the ascending colon. Since the procedure she has been doing well. She enjoys a good appetite on her daily omeprazole and denies any significant heartburn or dysphagia. She does describe occasional symptoms of nocturnal heartburn but she can usually relate this to having had something to eat or drink that was not particularly healthy or having eaten too close to bedtime. Her bowel movements have been regular and without any sign of bleeding. She denies any abdominal pain, jaundice, nor weight loss. Examination Category Sub-Category Detail Notes Category Not es General Examination GENERAL APPEARANCE: pleasant , well [...]
--- OUTSIDE RECORDS SUMMARY | 2025-01-14 11:50 | XMS_ITS | Clinical Summary ---
Author Organization [facility] it[facility] Address [address] [place] [address] Care Team Providers Care Land Mobile Radio Technician Name Role Phone Unavailable Primary Care Provider [...] Procedure Name Priority Date/Time Associated Diagnosis Comments [facility] SCREENING DIGITAL Routine 09/03/2022 8:59 AM EDT Encounter for screening mammogram for malignant neoplasm of breast [facility] DEXA AXIAL SKELETON Routine 12/20/2020 3:43 PM EST Encounter for screening for osteoporosis from Last 3 Months or Most Recently Relevant to Health Maintenance Results * [facility] SCREENING DIGITAL (09/03/2022 8:59 AM EDT) Anatomical Region Laterality Modality Mammography 08/31/2022 10:1 7 AM EDT Narrative 09/03/2022 8:59 AM EDT [facility] Diagnostic Imaging Department [address] [place] [address] Patient: ??TIBURCIO ZELAYA ?/Age/Sex: 1960 - 61 - F Unit#: ??[id number] ? Location/Status: ??SPDIMAM/PRE CLI ? Mnemonic/Ordering Site: ??DIGSC/SPMAM Ordering Physician: ??JEWEL NUÑEZ MD [facility] Screening Digital - 09/02/22 - 1004 EXAM: [facility] Screening Digital EXAM DATE AND TIME: 09/02/2022 10:04 AM HISTORY: ??Annual screening mammography. ??Limited mobility of the right shoulder due to injury. COMPARISON: ??09/25/2020 through 12/31/2015. TECHNIQUE: CC and MLO views of both breasts were obtained using full field digital mammography. Bilateral digital breast tomosynthesis was performed in the MLO projection. 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 TISSUE DENSITY: a. The breasts [...] Routine screening mammogram BILATERAL in 1 year. [address]8434, 27905 3342F, 7025F Dictating Physician: ??AMARILIS PRESTON MD Electronically Signed by: ??AMARILIS PRESTON MD Dic Date/Time: ??09/03/22 0856 Sign date/Time: ??09/03/22 0859 Procedure Note Lisa Preston MD - 11/01/2022 [facility] Diagnostic Imaging Department [address] [place] [address] Patient: TIBURCIO ZELAYA D.O.B./Age/Sex: 1960 - 61 - F Unit#: [id number] Location/Status: SPDIMAM/PRE CLI Mnemonic/Ordering Site: [facility] Ordering Physician: JEWEL NUÑEZ MD [facility] Screening Digital - 09/02/22 - 1004 EXAM: [facility] Screening Digital EXAM DATE AND TIME: 09/02/2022 10:04 AM HISTORY: Annual screening mammography. Limited mobility of the rightshoulder due to injury. COMPARISON: 09/25/2020 through 12/31/2015. TECHNIQUE: CC and MLO views of both breasts were obtained using fullfield digital mammography. Bilateral digital breast tomosynthesis was performedin the MLO projection. 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 TISSUE DENSITY: a. The breasts are [...] Routine screening mammogram BILATERAL in 1 year. 92755, 16352 3342F, 7025F Dictating Physician: AMARILIS PRESTON MD Electronically Signed by: AMARILIS PRESTON MD Dic Date/Time: 09/03/2256 Sign date/Time: 09/03/2259 Jewel Nuñez MD IMG BI PROCEDURES Final Result * [facility] DEXA AXIAL SKELETON (12/20/2020 3:43 PM EST) Anatomical Region Laterality Modality Mammography 12/20/2020 2:40 PM EST Narrative 12/20/2020 3:43 PM [facility] Diagnostic Imaging Department [address] [place] [id number] Patient: ??TIBURCIO ZELAYA ?/Age/Sex: 1960 - 60 - F Unit#: ??[id number] ? [facility]: [facility] ? Mnemonic/Ordering Site: ??MAMDEXAAX/SPMAM Ordering Physician: ??ENEIDA PAYAN HAND TOOL FILER [facility] Dexa Axial Skeleton - 12/20/201531 HISTORY: ??The [...] probability of hip fracture of 0.7%. Code 94400 Dictating Physician: ??TERRIE MARIA MD Electronically Signed by: ??TERRIE MARIA MD Dic Date/Time: ??12/20/201541 Sign date/Time: ??12/20/201542 Procedure Note Terrie Maria MD - 10/31/2022 [facility] Diagnostic Imaging Department [address] [place] [address] Patient: ELSIECARLOSTIBURCIOJOANNE Espana D.O.B./Age/Sex: 1960 - 60 - F Unit#: [id number] Location/Status: [facility] Mnemonic/Ordering Site: [facility] Ordering Physician: ENEIDA PAYAN NP [facility] Dexa Axial Skeleton - 12/20/201531 HISTORY: The [...] density of the femurs bilaterally is 0.972 gm/ib4hwwlq is 96% of that of young normals [...] probability of hip fracture of 0.7%. Code 34222 Dictating Physician: TERRIE MARIA MD Electronically Signed by: TERRIE MARIA MD Dic Date/Time: 12/20/20 1542 Sign date/Time: 12/20/20 1543 us Eneida Payan NP IMG BI PROCEDURES Final Resul t from Last 3 Months or Most Recently Relevant to Health Maintenance
--- OUTSIDE RECORDS SUMMARY | 2025-01-14 11:50 | XMS_ITS ---
Author Organization [facility] Address [address] [place] [address] Care Team Providers Care Business Rules Developer Name Role Phone Jewel Nuñez MD Primary Care Provider Jean Carlos Meadows Unavailable [phone] Freda Patel Unavailable Unavailable REASON FOR VISIT gerd,screening,hx polyps Problems Problem Type SNOMED Code ICD Code Onset Dates Problem Status W/U Status Risk Notes Problem Diverticular disease of colon (056460924) Diverticulosis of large intestine without perforation or abscess without bleeding (K57.30) Active confirmed Problem Gastroesophageal reflux disease (804050111) Gastroesophageal reflux disease (K21.9) Active confirmed Problem Mccormack esophagus (245129116) 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 Problem Gastritis (4426197) Gastritis (K29.70) Active c onfirmed Encounters Encounter Location Date Provider Diagnosis [facility] [place] Outpatient [address] [place] [phone] 10/26/2023 Jean Carlos Martínez Encounter for screen ing colonoscopy Z12.11 ; Colon polyps K63.5 ; Diverticulosis of large intestine without perforation or abscess without bleeding K57.30 ; Other hemorrhoids K64.8 ; Gastroesophageal reflux disease K21.9 ; Mccormack esophagus K22.70 ; Gastritis K29.70 and Hiatal hernia K44.9 Assessments Encounter Date Diagnosis (ICD Code) Assessment Notes Treatment Notes Treatment Clinical Notes Section Notes 10/26/2023 Encounter for screening colonoscopy (ICD-10 - Z12.11) 10/26/2023 Colon polyps (ICD-10 - K63.5) 10/26/2023 Diverticulosis of large intestine without perforation or abscess without bleeding (ICD-10 - K57.30) 10/26/2023 Other hemorrhoids (ICD-10 - K64.8) 10/26/2023 Gastroesophageal reflux disease (ICD-10 - K21.9) 10/26/2023 Mccormack esophagus (ICD-10 - K22.70) 10/26/2023 Gastritis (ICD-10 - K29.70) 10/26/2023 Hiatal hernia (ICD-10 - K44.9) Plan Of Treatment No Information Progress Notes * TIBURCIO MARCANO ADOB: (64 yo F)Acc No.[id number]:10/26/2023 EGD&COL/MAC Patient:?HAYLIE MARCANO Provider:?Jean Carlos Martínez MD :1960???Age:62 Y???Sex:Female D ate:10/26/2023 Address:[address] [place] [address] Pcp:Jewel Nuñez MD Subjective: * Chief Complaints: * ???1. Gerd,screening,hx poly ps. * Medical History:? Objective: * Vitals:? Assessment: * Assessment: 1.?Encounter for screening c olonoscopy - Z12.11 (Primary)???2.?Colon polyps - K63.5???3.?Diverticulosis of large intestine without perforation or abscess without bleeding - K57.30???4.?Other hemorrhoids - K64.8???5. Gastroesophageal reflux disease - K21.9???6.?Mccormack esophagus - K22.70???7.?Gastritis - K29.70???8.?Hiatal hernia - K44.9??? Plan: * Treatment: * Procedure Codes:?11017 COLON OSCOPY AND BIOPSY, Modifiers: 33 , 07834 UPPER GI ENDOSCOPY, BIOPSY * * The named appointment provid er may or may not be the originator of this progress note, and it is not deemed complete until electronically signed by the appointment provider. Sign off status: Pending * Provider:?Jean Carlos Martínez MD Date:? 023 Generated for Mg camejo/Fidelia/eTransmitting on:?01/14/2025 11:50 AM EST
--- OUTSIDE RECORDS SUMMARY | 2025-01-14 11:50 | XMS_ITS | Patient Health Record ---
Author Organization [facility] Address [address] [place] [address] Care Team Providers Care Crime Prevention Police Officer Name Role Phone Jewel Nuñez MD Primary Care Provider Jean Carlos Meadows Unavailable [phone] Freda Patel Unavailable Unavailable Allergies Allergen (clinical [...] Latex Gloves rash Drug Allergy Acti ve Reason For Referral No Information Medications Medication SIG (Take, Route, Frequency, Duration) [...] 7 DAYS. Subcutaneous once a week Active Immunizations Vaccine Route Administration Date Status Comme nts Influenza Unknown 09/02/2019 Refused Social History Tobacco Use: Social History Observation [...] No Points 0 Interpretation Negative Section Notes: Smoker 6-8 cigs QD; no alcoh ol Nonsmoker since 10/2018; no alcohol Nonsmoker since 10/2018; no alcohol Nonsmoker since 10/2018; no alcohol Problems Problem Type SNOMED Code ICD Code Onset Dates Problem Status W/U Status Risk Notes Problem 573079570 Encounter for screening for malignant neoplasm of colon (Z12.11) Active confirmed Problem 618704848 History of adenomatous polyp of colon (Z86.010) Active confirmed Problem 296742168 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) Active confirmed Problem Diverticular disease of colon (568122072) Diverticulosis of large intestine without perforation or abscess without bleeding (K57.30) Active confirmed Problem Gastroesophageal reflux disease (453652537) Gastroesophageal reflux disease (K21.9) Active confirmed Problem 300691640 Gastroesophageal reflux disease without esophagitis (K21.9) Active confirmed Problem 886027105 Tubular adenoma of colon (D12.6) Active confirmed Problem 994790766 Gastroesophageal reflux disease, esophagitis presence not specified (K21.9) Active confirmed Problem Gastritis (9961854) Gastritis (K29.70) Active c onfirmed Problem Mccormack esophagus (554167624) 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 Plan Of Treatment Future Test Test Name Order Date COLONOSCOPY 11/27/2012 UPPER GI ENDOSCOPY 09/02/2019 COLONOSCOPY 09/02/2019 COLONOSCOPY 03/30/2020 UPPER GI ENDOSCOPY 07/19/2023 COLONOSCOPY 07/19/2023 Insurance Providers Payer Name Payer Address Payer Phone Subscriber Number Group Number Insured Name Patient Relationship to Insured Coverage Start Date Coverage End Date [facility] [address] [place] [address] [id number] TIBURCIO MARCANO Self - patient is the insured Medical (General) History Medical History History ICD Code HTN Denies PR,CVA,Lung disease,renal disease Polycythemia vera since 2010-gets a phle botomy Q 8 weeks-sees Dr. Hurst 2 DVT's in Reports an ulcer in her DM Arthrits Bursitis Kidneystones in early Colonoscopy [...]
--- OUTSIDE RECORDS SUMMARY | 2025-01-14 11:50 | XMS_ITS ---
Author Organization [facility] Address [address] [place] [phone] Care Team Providers Care Sloop Captain Name Role Phone Jewel Nuñez MD Primary Care Provider Jean Carlos Meadows [phone] Freda Patel Unavailable Unavailable REASON FOR VISIT Trulicity-speak with the [facility] office Encounters Encounter Location Date Provider Diagnosis [facility] [address] [place] [phone] 10/21/2023 Jean Carlos Martínez Plan Of Treatment No Information Progress Notes * TIBURCIO MARCANO ADOB: (62 yo F)Acc No.[id number]:10/21/2023 Patient:?HAYLIE MARCANO :1960???Age:62 Y???Sex:Female Address:[address] [place] [address], [address] * true * Date:? Generated for Mg camejo/Fidelia/eTransmitting on:?01/14/2025 11:50 AM EST
== END 2025-01-14 10:21 | disposition home or self-care (01) ==
LOC: HO.ACS 10:04
PROVIDERS: PCP Internal Medicine; Visit Provider Internal Medicine
DX: Z79.01 Long term (current) use of anticoagulants (principal)

== ENCOUNTER → 2025-01-14 10:04 | Outpatient (BNVA) | payer MEDICARE, OTHER, SELFPAY | PROVIDERS: PCP Internal Medicine; Visit Provider Internal Medicine | DX: I82.503 Chronic embolism and thrombosis of unspecified deep veins of lower extremity, bilateral (principal); Z79.01 Long term (current) use of anticoagulants; Z51.81 Encounter for therapeutic drug level monitoring | CPT/HCPCS: 85610; 99211 ==

== ENCOUNTER 2025-02-04 09:38 | Outpatient (AMB) | payer MEDICARE, OTHER, SELFPAY ==
--- NOTE | 2025-02-04 09:54 | MHC.OFFVISCO ---
Intake Intake Visit Reasons: Anticoagulation Allergies droperidol [From INAPSINE] Allergy (Severe, Verified 02/04/25 09:44) Anaphylaxis egg [EGG] Allergy (Severe, Verified 02/04/25 09:44) Nausea and Vomiting latex [LATEX] Allergy (Severe, Verified 02/04/25 09:44) HIVES metformin [METFORMIN] Allergy (Severe, Verified 02/04/25 09:44) DIZZINESS AND NAUSEA penicillin V Allergy (Severe, Verified 02/04/25 09:44) RASH codeine [CODEINE] Allergy (Intermediate, Verified 02/04/25 09:44) Rash Hydrocodone Bitartrate Allergy (Intermediate, Uncoded 02/04/25 09:44) Rash Medication List - Last Reconciled 02/04/25 by Gianna Heard RN atorvastatin 40 mg PO DAILY blood sugar diagnostic As directed celecoxib 1 cap PO BID cholecalciferol (vitamin D3) (Vitamin D3) 50 mcg PO DAILY empagliflozin 25 mg PO DAILY fluticasone propionate 50 mcg/actuation 2 sprays intranasal DAILY lisinopril 5 mg PO DAILY loratadine (Claritin) 10 mg PO DAILY omeprazole 1 cap PO DAILY tirzepatide (Mounjaro) 5 mg subcut QWEEK warfarin See Protocol 5MG X4DAYS/7.5MG MWF; Nursing Note INR: 2.6- in therapeutic range of 2-3 Medications and supplements reviewed- no changes No changes in health, diet, medications, or supplements, Denies any signs and symptoms of bleeding or bruising or clotting. Bleeding, bruising, clotting discussed Nutritional guidance given Dose: 7.5mg x 3, 5mg x 4 F/U INR: 4 weeks Patient verbalizes understanding of instructions given Anti-Coag Initial Assessment Social Hx Patient Tobacco Use Status: Former Tobacco user Tobacco use type: Cigarette Smoking packs per day: 1 alcohol intake: former Alcohol intake frequency: does not drink Coding Level of Care Code Est Patient Level 1 Diagnoses Current use of anticoagulant therapy Z79.01 Results AMB INR Fingerstick AMB INR Fingerstick 2.6 Last Edit by Gianna Heard RN on 02/04/25 09:56 interface delay Assessment & Plan Assessment & Plan (1) Current use of anticoagulant therapy: Code(s): Z79.01 - penitentiary (current) use of anticoagulants
--- OUTSIDE RECORDS SUMMARY | 2025-02-04 10:46 | XMS_ITS ---
Author Organization [facility] Address [address] [place] [phone] Care Team Providers Care Locker Attendant Name Role Phone Jewel Nuñez MD Primary Care Provider Jean Carlos Meadows [phone] Freda Patel Unavailable Unavailable REASON FOR VISIT Trulicity-speak with the [facility] office Encounters Encounter Location Date Provider Diagnosis [facility] [address] [place] [phone] 10/21/2023 Jean Carlos Martínez Plan Of Treatment No Information Progress Notes * TIBURCIO MARCANO ADOB: (62 yo F)Acc No.[id number]:10/21/2023 Patient:?HAYLIE MARCANO :1960???Age:62 Y???Sex:Female Address:[address] [place] [address], [address] * true * Date:? Generated for Elliotti bashir/Fidelia/eTransmitting on:?02/04/2025 10:46 AM EDT
--- OUTSIDE RECORDS SUMMARY | 2025-02-04 10:46 | XMS_ITS | Clinical Summary ---
Author Organization [facility] Address [address] [place] [address] Care Team Providers Care Conservation Engineer Name Role Phone Unavailable Primary Care Provider [...] Procedure Name Priority Date/Time Associated Diagnosis Comments [facility] SCREENING DIGITAL Routine 09/03/2022 8:59 AM EDT Encounter for screening mammogram for malignant neoplasm of breast [facility] DEXA AXIAL SKELETON Routine 12/20/2020 3:43 PM EST Encounter for screening for osteoporosis from Last 3 Months or Most Recently Relevant to Health Maintenance Results * [facility] SCREENING DIGITAL (09/03/2022 8:59 AM EDT) Anatomical Region Laterality Modality Mammography 08/31/2022 10:1 7 AM EDT Narrative 09/03/2022 8:59 AM EDT [facility] Diagnostic Imaging Department [address] [place] [address] Patient: ??TIBURCIO ZELAYA ?/Age/Sex: 1960 - 61 - F Unit#: ??[id number] ? Location/Status: ??SPDIMAM/PRE CLI ? Mnemonic/Ordering Site: ??DIGSC/SPMAM Ordering Physician: ??JEWEL NUÑEZ MD [facility] Screening Digital - 09/02/22 - 1004 EXAM: [facility] Screening Digital EXAM DATE AND TIME: 09/02/2022 10:04 AM HISTORY: ??Annual screening mammography. ??Limited mobility of the right shoulder due to injury. COMPARISON: ??09/25/2020 through 12/31/2015. TECHNIQUE: CC and MLO views of both breasts were obtained using full field digital mammography. Bilateral digital breast tomosynthesis was performed in the MLO projection. 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 TISSUE DENSITY: a. The breasts [...] Routine screening mammogram BILATERAL in 1 year. [address]85, 92756 3342F, 7025F Dictating Physician: ??AMARILIS PRESTON MD Electronically Signed by: ??AMARILIS PRESTON MD Dic Date/Time: ??09/03/22 0856 Sign date/Time: ??09/03/22 0859 Procedure Note Lisa Preston MD - 11/01/2022 [facility] Diagnostic Imaging Department [address] [place] [address] Patient: TIBURCIO ZELAYA D.O.B./Age/Sex: 1960 - 61 - F Unit#: [id number] Location/Status: SPDIMAM/PRE CLI Mnemonic/Ordering Site: [facility] Ordering Physician: JEWEL NUÑEZ MD [facility] Screening Digital - 09/02/22 - 1004 EXAM: [facility] Screening Digital EXAM DATE AND TIME: 09/02/2022 10:04 AM HISTORY: Annual screening mammography. Limited mobility of the rightshoulder due to injury. COMPARISON: 09/25/2020 through 12/31/2015. TECHNIQUE: CC and MLO views of both breasts were obtained using fullfield digital mammography. Bilateral digital breast tomosynthesis was performedin the MLO projection. 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 TISSUE DENSITY: a. The breasts are [...] Routine screening mammogram BILATERAL in 1 year. 77286, 29599 3342F, 7025F Dictating Physician: AMARILIS PRESTON MD Electronically Signed by: AMARILIS PRESTON MD Dic Date/Time: 09/03/2256 Sign date/Time: 09/03/2259 Jewel Nuñez MD IMG BI PROCEDURES Final Result * [facility] DEXA AXIAL SKELETON (12/20/2020 3:43 PM EST) Anatomical Region Laterality Modality Mammography 12/20/2020 2:40 PM EST Narrative 12/20/2020 3:43 PM [facility] Diagnostic Imaging Department [address] [place] [address] Patient: ??TIBURCIO ZELAYA ?/Age/Sex: 1960 - 60 - F Unit#: ??[id number] ? [facility]: [facility] ? Mnemonic/Ordering Site: ??MAMDEXAAX/SPMAM Ordering Physician: ??ENEIDA PAYAN HOUSING QUALITY STANDARD INSPECTOR [facility] Dexa Axial Skeleton - 12/20/201531 HISTORY: ??The [...] probability of hip fracture of 0.7%. Code 20157 Dictating Physician: ??TERRIE MARIA MD Electronically Signed by: ??TERRIE MARIA MD Dic Date/Time: ??12/20/201541 Sign date/Time: ??12/20/201542 Procedure Note Terrie Maria MD - 10/31/2022 [facility] Diagnostic Imaging Department [address] [place] [address] Patient: ELSIECARLOSTIBURCIOJOANNE Espana D.O.B./Age/Sex: 1960 - 60 - F Unit#: [id number] Location/Status: [facility] Mnemonic/Ordering Site: [facility] Ordering Physician: ENEIDA PAYAN NP [facility] Dexa Axial Skeleton - 12/20/201531 HISTORY: The [...] density of the femurs bilaterally is 0.972 gm/oz9ugmvn is 96% of that of young normals [...] probability of hip fracture of 0.7%. Code 83280 Dictating Physician: TERRIE MARIA MD Electronically Signed by: TERRIE MARIA MD Dic Date/Time: 12/20/20 1542 Sign date/Time: 12/20/20 1543 us Eneida Payan NP IMG BI PROCEDURES Final Resul t from Last 3 Months or Most Recently Relevant to Health Maintenance
--- OUTSIDE RECORDS SUMMARY | 2025-02-04 10:46 | XMS_ITS ---
Author Organization [facility] Address [address] [place] [address] Care Team Providers Care Raw Material Handler Name Role Phone Jewel Nuñez MD Primary Care Provider Jean Carlos Meadows Unavailable [phone] Freda Patel Unavailable Unavailable REASON FOR VISIT gerd,screening,hx polyps Problems Problem Type SNOMED Code ICD Code Onset Dates Problem Status W/U Status Risk Notes Problem Diverticular disease of colon (230263588) Diverticulosis of large intestine without perforation or abscess without bleeding (K57.30) Active confirmed Problem Gastroesophageal reflux disease (808866146) Gastroesophageal reflux disease (K21.9) Active confirmed Problem Mccormack esophagus (208274513) 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 Plan: * Treatment: * Procedure Codes:?46251 COLON OSCOPY AND BIOPSY, Modifiers: 33 , 62478 UPPER GI ENDOSCOPY, BIOPSY * * The named appointment provid er may or may not be the originator of this progress note, and it is not deemed complete until electronically signed by the appointment provider. Sign off status: Pending * Provider:?Jean Carlos Martínez MD Date:? 023 Generated for Mg camejo/Fidelia/eTransmitting on:?02/04/2025 10:45 AM EDT
[2025-02-04 15:50] LABS: Prothrombin Time Whole Bld POC 31.5 sec (11.1-13.5); ~PT, ~INR - Anti Coag Clinic 2.6 (0.9-1.1)
== END 2025-02-04 10:05 | disposition home or self-care (01) ==
LOC: HO.ACS 09:38
PROVIDERS: PCP Internal Medicine; Visit Provider Internal Medicine Medical Oncology
DX: Z79.01 Long term (current) use of anticoagulants (principal)

== ENCOUNTER → 2025-02-04 09:38 | Outpatient (BNVA) | payer MEDICARE, OTHER, SELFPAY | PROVIDERS: PCP Internal Medicine; Visit Provider Internal Medicine Medical Oncology | DX: I82.503 Chronic embolism and thrombosis of unspecified deep veins of lower extremity, bilateral (principal); Z79.01 Long term (current) use of anticoagulants; Z51.81 Encounter for therapeutic drug level monitoring | CPT/HCPCS: 85610; 99211 ==

== ENCOUNTER 2025-03-04 09:39 | Outpatient (AMB) | payer MEDICARE, OTHER, SELFPAY ==
[2025-03-04 09:51] LABS: Prothrombin Time Whole Bld POC 32.4 sec (11.1-13.5); ~PT, ~INR - Anti Coag Clinic 2.7 (0.9-1.1)
--- NOTE | 2025-03-04 09:58 | MHC.OFFVISCO ---
Intake Intake Visit Reasons: Anticoagulation Allergies droperidol [From INAPSINE] Allergy (Severe, Verified 03/04/25 09:46) Anaphylaxis egg [EGG] Allergy (Severe, Verified 03/04/25 09:46) Nausea and Vomiting latex [LATEX] Allergy (Severe, Verified 03/04/25 09:46) HIVES metformin [METFORMIN] Allergy (Severe, Verified 03/04/25 09:46) DIZZINESS AND NAUSEA penicillin V Allergy (Severe, Verified 03/04/25 09:46) RASH codeine [CODEINE] Allergy (Intermediate, Verified 03/04/25 09:46) Rash Hydrocodone Bitartrate Allergy (Intermediate, Uncoded 02/04/25 09:44) Rash Medication List - Last Reconciled 03/04/25 by Rebecca Crook RN atorvastatin 40 mg PO DAILY blood sugar diagnostic As directed celecoxib 1 cap PO BID cholecalciferol (vitamin D3) (Vitamin D3) 50 mcg PO DAILY empagliflozin 25 mg PO DAILY fluticasone propionate 50 mcg/actuation 2 sprays intranasal DAILY lisinopril 5 mg PO DAILY loratadine (Claritin) 10 mg PO DAILY omeprazole 1 cap PO DAILY tirzepatide (Mounjaro) 5 mg subcut QWEEK warfarin See Protocol 5MG X4DAYS/7.5MG MWF; Nursing Note NO CP,SOB,DIET/MED CHANGES,FALLS OR SX OF BLEEDING. CONTINUE PRESENT DOSING AND FOLLOW-UP IN 4 WEEKS. GOOD UNDERSTANDING OF DOSING INSTR. Anti-Coag Initial Assessment Social Hx Patient Tobacco Use Status: Former Tobacco user Tobacco use type: Cigarette Smoking packs per day: 1 alcohol intake: former Alcohol intake frequency: does not drink Coding Level of Care Code Est Patient Level 1 Diagnoses Current use of anticoagulant therapy Z79.01 Assessment & Plan Assessment & Plan (1) Current use of anticoagulant therapy: Code(s): Z79.01 - intermediate (current) use of anticoagulants
--- OUTSIDE RECORDS SUMMARY | 2025-03-04 10:49 | XMS_ITS ---
Author Organization [facility] Address [address] [place] [address] Care Team Providers Care Internal Medicine Nurse Name Role Phone Jewel Nuñez MD Primary Care Provider Jean Carlos Meadows Unavailable [phone] Freda Patel Unavailable Unavailable REASON FOR VISIT gerd,screening,hx polyps Problems Problem Type SNOMED Code ICD Code Onset Dates Problem Status W/U Status Risk Notes Problem Diverticular disease of colon (861923341) Diverticulosis of large intestine without perforation or abscess without bleeding (K57.30) Active confirmed Problem Gastroesophageal reflux disease (509443136) Gastroesophageal reflux disease (K21.9) Active confirmed Problem Mccormack esophagus (243258074) 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 Plan: * Treatment: * Procedure Codes:?41655 COLON OSCOPY AND BIOPSY, Modifiers: 33 , 52869 UPPER GI ENDOSCOPY, BIOPSY * * The named appointment provid er may or may not be the originator of this progress note, and it is not deemed complete until electronically signed by the appointment provider. Sign off status: Pending * Provider:?Jean Carlos Martínez MD Date:? 023 Generated for Mg camejo/Fidelia/eTransmitting on:?03/04/2025 10:49 AM EDT
--- OUTSIDE RECORDS SUMMARY | 2025-03-04 10:49 | XMS_ITS | Clinical Summary ---
Author Organization [facility] ity Address [address] [place] [address] Care Team Providers Care Supervisor Chemical Name Role Phone Unavailable Primary Care Provider [...] 2023 COVID-19 Vaccine ( - season) 2024 Breast Cancer Screening 09/03/2024 09/03/20, 09/26/2020, 06/15/2019, Additional history exists Influenza Vaccine (Season Ended) 2025 Osteoporosis Screening (Bone Density Screening) 12/20/2030 12/20/2020 RSV Immunization Adult Patients (1 - 1-dose 75+ series) 2033 HIB [...] age to complete this topic Meningococcal B Vaccine Aged Out No l onger eligible based on patient's age to complete this topic RSV Immunization Patients Under 20 months Aged Out No longer eligible based on patient's age to complete this topic Varicella Vaccines Aged Out No longer eligible based on patient's age to complete this topic Procedures Procedure Name Priority Date/Time Associated Diagnosis Comments [facility] SCREENING DIGITAL Routine 09/03/2022 8:59 AM EDT Encounter for screening mammogram for malignant neoplasm of breast [facility] DEXA AXIAL SKELETON Routine 12/20/2020 3:43 PM EST Encounter for screening for osteoporosis from Last 3 Months or Most Recently Relevant to Health Maintenance Results * [facility] SCREENING DIGITAL (09/03/2022 8:59 AM EDT) Anatomical Region Laterality Modality Mammography 08/31/2022 10:1 7 AM EDT Narrative 09/03/2022 8:59 AM EDT [facility] Diagnostic Imaging Department [address] [place] [address] Patient: ??TIBURCIO ZELAYA ?/Age/Sex: 1960 - 61 - F Unit#: ??[id number] ? Location/Status: ??SPDIMAM/PRE CLI ? Mnemonic/Ordering Site: ??DIGSC/SPMAM Ordering Physician: ??JEWEL NUÑEZ MD [facility] Screening Digital - 09/02/22 - 1004 EXAM: [facility] Screening Digital EXAM DATE AND TIME: 09/02/2022 10:04 AM HISTORY: ??Annual screening mammography. ??Limited mobility of the right shoulder due to injury. COMPARISON: ??09/25/2020 through 12/31/2015. TECHNIQUE: CC and MLO views of both breasts were obtained using full field digital mammography. Bilateral digital breast tomosynthesis was performed in the MLO projection. 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 TISSUE DENSITY: a. The breasts [...] Routine screening mammogram BILATERAL in 1 year. 15704, 54017 3342F, 7025F Dictating Physician: ??AMARILIS PRESTON MD Electronically Signed by: ??AMARILIS PRESTON MD Dic Date/Time: ??09/03/22 0856 Sign date/Time: ??09/03/22 0859 Procedure Note Lisa Preston MD - 11/01/2022 [facility] Diagnostic Imaging Department [address] [place] [address] [id number] Patient: TIBURCIO ZELAYA D.O.B./Age/Sex: 1960 - 61 - F Unit#: [id number] Location/Status: SPDIMAM/PRE CLI Mnemonic/Ordering Site: [facility] Ordering Physician: JEWEL NUÑEZ MD [facility] Screening Digital - 09/02/22 - 1004 EXAM: [facility] Screening Digital EXAM DATE AND TIME: 09/02/2022 10:04 AM HISTORY: Annual screening mammography. Limited mobility of the rightshoulder due to injury. COMPARISON: 09/25/2020 through 12/31/2015. TECHNIQUE: CC and MLO views of both breasts were obtained using fullfield digital mammography. Bilateral digital breast tomosynthesis was performedin the MLO projection. Computer aided detection with the [employer].2-Radiation Watchas employed. TISSUE DENSITY: a. The breasts are [...] Routine screening mammogram BILATERAL in 1 year. 64330, 69639 3342F, 7025F Dictating Physician: AMARILIS PRESTON MD Electronically Signed by: AMARILIS PRESTON MD Dic Date/Time: 09/03/22 0856 Sign date/Time: 09/03/22 0859 Jewel Nuñez MD IMG BI PROCEDURES Final Result * [facility] DEXA AXIAL SKELETON (12/20/2020 3:43 PM EST) Anatomical Region Laterality Modality Mammography 12/20/2020 2:40 PM EST Narrative 12/20/2020 3:43 PM [facility] Diagnostic Imaging Department [address] [place] [id number] Patient: ??TIBURCIO ZELAYA ?/Age/Sex: 1960 - Unit#: ??[id number] ? [facility] Mnemonic/Ordering Site: ??MAMDEXAAX/SPMAM Ordering Physician: ??ENEIDA PAYAN NP [facility] Dexa Axial Skeleton - 12/20/201531 HISTORY: ??The [...] probability of hip fracture of 0.7%. Code 31788 Dictating Physician: ??TERRIE MARIA MD Electronically Signed by: ??TERRIE MARIA MD Dic Date/Time: ??12/20/201541 Sign date/Time: ??12/20/201542 Procedure Note Terrie Maria MD - 10/31/2022 [facility] Diagnostic Imaging Department [address] [place] [address] Patient: TAVOSarbjitTIBURCIO./Age/Sex: 1960 - 60 - F Unit#: [id number] Location/Status: [facility] Ordering Physician: ENEIDA PAYAN NP [facility] Dexa Axial Skeleton - 12/20/201531 HISTORY: The [...] density of the femurs bilaterally is 0.972 gm/xi2pzoja is 96% of that of young normals [...] probability of hip fracture of 0.7%. Code 43196 Dictating Physician: TERRIE MARIA MD Electronically Signed by: TERRIE MARIA MD Dic Date/Time: 12/20/20 1542 Sign date/Time: 12/20/20 1543 us Eneida Payan NP IMG BI PROCEDURES Final Resul t from Last 3 Months or Most Recently Relevant to Health Maintenance
--- OUTSIDE RECORDS SUMMARY | 2025-03-04 10:49 | XMS_ITS | Patient Health Record ---
Author Organization [facility] Address [address] [place] [address] Care Team Providers Care Inserting Machine Operator Name Role Phone Jewel Nuñez MD Primary Care Provider Jean Carlos Meadows Unavailable [phone] Freda Patel Unavailable Unavailable Allergies Allergen (clinical [...] 20 MG TAKE 1 CAPSULE BY [facility] EVERY DAY for 90 Active Warfarin Sodium [...] Problem Status W/U Status Risk Notes Problem 783987303 Encounter for screening for malignant neoplasm of colon (Z12.11) Active confirmed Problem 115976628 History of adenomatous polyp of colon (Z86.010) Active confirmed Problem 534012294 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) Active confirmed Problem Diverticular disease of colon (274833381) Diverticulosis of large intestine without perforation or abscess without bleeding (K57.30) Active confirmed Problem Gastroesophageal reflux disease (679192249) Gastroesophageal reflux disease (K21.9) Active confirmed Problem 204987640 Gastroesophageal reflux disease without esophagitis (K21.9) Active confirmed Problem 082963300 Tubular adenoma of colon (D12.6) Active confirmed Problem 934942872 Gastroesophageal reflux disease, esophagitis presence not specified (K21.9) Active confirmed Problem Gastritis (9556274) Gastritis (K29.70) Active c onfirmed Problem Mccormack esophagus (519039144) 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 Plan Of Treatment Future Test Test Name Order Date COLONOSCOPY 11/27/2012 UPPER GI ENDOSCOPY 09/02/2019 COLONOSCOPY 09/02/2019 COLONOSCOPY 03/30/2020 UPPER GI ENDOSCOPY 07/19/2023 COLONOSCOPY 07/19/2023 Insurance Providers Payer Name Payer Address Payer Phone Subscriber Number Group Number Insured Name Patient Relationship to Insured Coverage Start Date Coverage End Date [facility] [address] [place] [address] [id number] TIBURCIO MARCANO Self - patient is the insured Medical (General) History Medical History History ICD Code HTN Denies UT,CVA,Lung disease,renal disease Polycythemia vera since 2010-gets a [...]
--- OUTSIDE RECORDS SUMMARY | 2025-03-04 10:50 | XMS_ITS ---
Author Organization [facility] Address [address] [place] [address] Care Team Providers Care Conference Assistant Name Role Phone Jewel Nuñez MD Primary Care Provider Jean Carlos Meadows [phone] Freda Patel Unavailable Unavailable REASON FOR VISIT Trulicity-speak with the [facility] office Encounters Encounter Location Date Provider Diagnosis [facility] [address] [place] [phone] 10/21/2023 Jean Carlos Martínez Plan Of Treatment No Information Progress Notes * TIBURCIO MARCANO ADOB: (62 yo F)Acc No.[id number]:10/21/2023 Patient:?HAYLIE MARCANO :1960???Age:62 Y???Sex:Female Address:[address] [place] [address], [address] * true * Date:? Generated for Elliotti bashir/Fidelia/eTransmitting on:?03/04/2025 10:49 AM EDT
== END 2025-03-04 09:59 | disposition home or self-care (01) ==
LOC: HO.ACS 09:39
PROVIDERS: PCP Internal Medicine; Visit Provider Internal Medicine Medical Oncology
DX: Z79.01 Long term (current) use of anticoagulants (principal)

== ENCOUNTER → 2025-03-04 09:39 | Outpatient (BNVA) | payer MEDICARE, OTHER, SELFPAY | PROVIDERS: PCP Internal Medicine; Visit Provider Internal Medicine Medical Oncology | DX: I82.503 Chronic embolism and thrombosis of unspecified deep veins of lower extremity, bilateral (principal); Z79.01 Long term (current) use of anticoagulants; Z51.81 Encounter for therapeutic drug level monitoring | CPT/HCPCS: 85610; 99211 ==

== ENCOUNTER 2025-03-17 09:22 | Inpatient (IN) | payer MEDICARE, OTHER, SELFPAY ==
--- NOTE | ~2025-03-17 | XR_ITS ---
EXAMINATION: XR TOES, RIGHT CLINICAL INFORMATION: second toe wound COMPARISON: None available. TECHNIQUE: 3 views of the right toes were obtained. FINDINGS: No osteolysis. No subcutaneous emphysema. Degenerative changes in the interphalangeal joints. Osteopenia versus osteoporosis. Vascular calcifications. No lytic or blastic lesions. XR/XR toe RT min 2V IMPRESSION: No osteomyelitis based on x-ray. Electronically signed by: Yordan Cai MD 03/17/2025 10:51 AM EDT
[2025-03-17 09:55] VITALS: BP 126/90; PULSE 98; RESP 18; TEMP 37.1; O2SAT 97; BMI 19.6
[2025-03-17 10:20] LABS: MANUAL DIFF FLAG NO
[2025-03-17 10:23] LABS: Basophils Percent Auto 0.3 % (0-2); Eosinophils Absolute Auto 0.1 X10*3/uL (0.0-0.4); Eosinophils Percent Auto 0.7 % (0-4); Hematocrit 46.4 % (37.0-47.0); Hemoglobin 15.8 g/dl (12.0-16.0); Imm Gran Abs Auto 0.06 X10*3/uL (0.00-0.03); Imm Gran Pct Auto 0.5 % (0.0-0.4); Lymphocytes Absolute Auto 2.2 X10*3/uL (1.2-4.9); Lymphocytes Percent Auto 18.8 % (20-40); Mean Corpuscular HGB Conc 34.1 g/dl (31.0-35.0); Mean Corpuscular Hemoglobin 29.8 pg (27.0-33.0); Mean Corpuscular Volume 87.5 fL (80.0-98.0); Mean Platelet Volume 9.4 fL (9.4-12.3); Monocytes Absolute Auto 0.6 X10*3/uL (0.1-1.2); Monocytes Percent Auto 5.1 % (2-11); Neutrophils Absolute Auto 8.5 x10*3/uL (2.0-8.3); Neutrophils Percent Auto 74.6 % (45-73); Platelet Count 244 X10*3/uL (160-400); Red Cell Distribution Width 12.9 % (11.0-16.0); White Blood Count 11.5 X10*3/uL (4.8-10.8)
[2025-03-17 10:37] LABS: Anion Gap 16 (12-20); Blood Urea Nitrogen 19 mg/dL (9-16); Calcium 9.2 mg/dL (8.4-10.2); Carbon Dioxide 21 mmol/L (22-29); Chloride 106 mmol/L (96-108); Creatinine Clr Calc Pharmacy 66.5; Estimated Glomerular Filt Rate > 60; Glucose Random 292 mg/dL (60-115); Potassium 4.3 mmol/L (3.3-5.1); Sodium 139 mmol/L (135-145)
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
[2025-03-17] MEDS: cefEPime HCl/D5W 2 GM/50 ML PIGGYBACK IV (13:53)
[2025-03-17 14:24] LABS: Lactic Acid 1.9 mmol/L (0.5-2.0)
--- OUTSIDE RECORDS SUMMARY | 2025-03-17 14:29 | XMS_ITS | Clinical Summary ---
Author Organization [facility] ity Address [address] [place] [address] Care Team Providers Care Armored Cable Machine Operator Name Role Phone Unavailable Primary Care [...] - season) 2024 Breast Cancer Screening 09/03/2024 09/03/20 22, 09/26/2020, 06/15/2019, Additional history exists Influenza Vaccine [...] Procedure Name Priority Date/Time Associated Diagnosis Comments [facility] SCREENING DIGITAL Routine 09/03/2022 8:59 AM EDT Encounter for screening mammogram for malignant neoplasm of breast [facility] DEXA AXIAL SKELETON Routine 12/20/2020 3:43 PM EST Encounter for screening for osteoporosis from Last 3 Months or Most Recently Relevant to Health Maintenance Results * [facility] SCREENING DIGITAL (09/03/2022 8:59 AM EDT) Anatomical Region Laterality Modality Mammography 08/31/2022 10:1 7 AM EDT Narrative 09/03/2022 8:59 AM EDT [facility] Diagnostic Imaging Department [address] [place] [address] Patient: ??TIBURCIO ZELAYA ?/Age/Sex: 1960 - 61 - F Unit#: ??[id number] ? Location/Status: ??SPDIMAM/PRE CLI ? Mnemonic/Ordering Site: ??DIGSC/SPMAM Ordering Physician: ??JEWEL NUÑEZ MD [facility] Screening Digital - 09/02/22 - 1004 EXAM: [facility] Screening Digital EXAM DATE AND TIME: 09/02/2022 10:04 AM HISTORY: ??Annual screening mammography. ??Limited mobility of the right shoulder due to injury. COMPARISON: ??09/25/2020 through 12/31/2015. TECHNIQUE: CC and MLO views of both breasts were obtained using full field digital mammography. Bilateral digital breast tomosynthesis was performed in the MLO projection. 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 TISSUE DENSITY: a. The breasts [...] Routine screening mammogram BILATERAL in 1 year. 51362, 10867 3342F, 7025F Dictating Physician: ??AMARILIS PRESTON MD Electronically Signed by: ??AMARILIS PRESTON MD Dic Date/Time: ??09/03/22 0856 Sign date/Time: ??09/03/22 0859 Procedure Note Lisa Preston MD - 11/01/2022 [facility] Diagnostic Imaging Department [address] [place] [id number] Patient: TIBURCIO ZELAYA D.O.B./Age/Sex: 1960 - 61 - F Unit#: [id number] Location/Status: SPDIMAM/PRE CLI Mnemonic/Ordering Site: [facility] Ordering Physician: JEWEL NUÑEZ MD [facility] Screening Digital - 09/02/22 - 1004 EXAM: [facility] Screening Digital EXAM DATE AND TIME: 09/02/2022 10:04 AM HISTORY: Annual screening mammography. Limited mobility of the rightshoulder due to injury. COMPARISON: 09/25/2020 through 12/31/2015. TECHNIQUE: CC and MLO views of both breasts were obtained using fullfield digital mammography. Bilateral digital breast tomosynthesis was performedin the MLO projection. Computer aided detection with the [employer].2-Sky[employer] Solutionsas employed. TISSUE DENSITY: a. The breasts are [...] Routine screening mammogram BILATERAL in 1 year. 08781, 59637 3342F, 7025F Dictating Physician: AMARILIS PRESTON MD Electronically Signed by: AMARILIS PRESTON MD Dic Date/Time: 09/03/22 0856 Sign date/Time: 09/03/22 0859 Jewel Nuñez MD IMG BI PROCEDURES Final Result * [facility] DEXA AXIAL SKELETON (12/20/2020 3:43 PM EST) Anatomical Region Laterality Modality Mammography 12/20/2020 2:40 PM EST Narrative 12/20/2020 3:43 PM [facility] Diagnostic Imaging Department [address] [place] [id number] Patient: ??TIBURCIO ZELAYA ?/Age/Sex: 1960 - Unit#: ??[id number] ? [facility]: [facility] Mnemonic/Ordering Site: ??MAMDEXAAX/SPMAM Ordering Physician: ??ENEIDA PAYAN NP [facility] Dexa Axial Skeleton - 12/20/201531 HISTORY: ??The [...] probability of hip fracture of 0.7%. Code 20026 Dictating Physician: ??TERRIE MARIA MD Electronically Signed by: ??TERRIE MARIA MD Dic Date/Time: ??12/20/201541 Sign date/Time: ??12/20/201542 Procedure Note Terrie Maria MD - 10/31/2022 [facility] Diagnostic Imaging Department [address] [place] [address] Patient: TVAOSarbjitTIBURCIO./Age/Sex: 1960 - 60 - F Unit#: [id number] Location/Status: [facility] Ordering Physician: ENEIDA PAYAN NP [facility] Dexa Axial Skeleton - 12/20/201531 HISTORY: The [...] density of the femurs bilaterally is 0.972 gm/ii6klhlz is 96% of that of young normals [...] probability of hip fracture of 0.7%. Code 47355 Dictating Physician: TERRIE MARIA MD Electronically Signed by: TERRIE MARIA MD Dic Date/Time: 12/20/20 1542 Sign date/Time: 12/20/20 1543 us Eneida Payan NP IMG BI PROCEDURES Final Resul t from Last 3 Months or Most Recently Relevant to Health Maintenance
--- OUTSIDE RECORDS SUMMARY | 2025-03-17 14:29 | XMS_ITS | Patient Health Record ---
Author Organization [facility] Address [address] [place] [address] Care Team Providers Care Commercial Marketing Specialist Name Role Phone Jewel Nuñez MD Primary Care Provider Jean Carlos Meadows Unavailable [phone] Freda Patel Unavailable Unavailable Allergies Allergen (clinical [...] 20 MG TAKE 1 CAPSULE BY MO [facility] EVERY DAY for 90 Active Warfarin [...] Problem Status W/U Status Risk Notes Problem 032504092 Encounter for screening for malignant neoplasm of colon (Z12.11) Active confirmed Problem 897715546 History of adenomatous polyp of colon (Z86.010) Active confirmed Problem 142317256 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 Problem Diverticular disease of colon (312844532) Diverticulosis of large intestine without perforation or abscess without bleeding (K57.30) Active confirmed Problem Gastroesophageal reflux disease (K21.9) Active confirmed Problem 120724396 Gastroesophageal reflux disease without esophagitis (K21.9) Active confirmed Problem 795727573 Tubular adenoma of colon (D12.6) Active confirmed Problem 886359041 Gastroesophageal reflux disease, esophagitis presence not specified (K21.9) Active confirmed Problem Gastritis (9606977) Gastritis (K29.70) Active confirmed Problem Mccormack esophagus (719375411) 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 Plan Of Treatment Future Test Test Name Order Date COLONOSCOPY 11/27/2012 UPPER GI ENDOSCOPY 09/02/2019 COLONOSCOPY 09/02/2019 COLONOSCOPY 03/30/2020 UPPER GI ENDOSCOPY 07/19/2023 COLONOSCOPY 07/19/2023 Insurance Providers Payer Name Payer Address Payer Phone Subscriber Number Group Number Insured Name Patient Relationship to Insured Coverage Start Date Coverage End Date [facility] [address] [place] [address] [id number] TIBURCIO MARCANO Self - patient is the insured Medical (General) History Medical History History ICD Code HTN Denies [place],CVA,Lung disease,renal disease Polycythemia vera since 2010-gets a [...]
--- OUTSIDE RECORDS SUMMARY | 2025-03-17 14:29 | XMS_ITS ---
Author Organization [facility] Address [address] [place] [address] Care Team Providers Care Wellness Trainer Name Role Phone Jewel Nuñez MD Primary Care Provider Jean Carlos Meadows [phone] Freda Patel Unavailable Unavailable REASON FOR VISIT Trulicity-speak with the [facility] office Encounters Encounter Location Date Provider Diagnosis [facility] [address] [place] [phone] 10/21/2023 Jean Carlos Martínez Plan Of Treatment No Information Progress Notes * TIBURCIO MARCANO ADOB: (62 yo F)Acc No.[id number]:10/21/2023 Patient:?HAYLIE MARCANO :1960???Age:62 Y???Sex:Female Address:[address] [place] [address], [address] * true * Date:? Generated for Elliotti bashir/Fidelia/eTransmitting on:?03/17/2025 02:29 PM EDT
--- OUTSIDE RECORDS SUMMARY | 2025-03-17 14:29 | XMS_ITS ---
Author Organization [facility] Address [address] [place] [address] Care Team Providers Care Flatwork Feeder Name Role Phone Jewel Nuñez MD Primary Care Provider Jean Carlos Meadows Unavailable [phone] Freda Patel Unavailable Unavailable REASON FOR VISIT gerd,screening,hx polyps Problems Problem Type SNOMED Code ICD Code Onset Dates Problem Status W/U Status Risk Notes Problem Diverticular disease of colon (043758373) Diverticulosis of large intestine without perforation or abscess without bleeding (K57.30) Active confirmed Problem Gastroesophageal reflux disease (495224446) Gastroesophageal reflux disease (K21.9) Active confirmed Problem Mccormack esophagus (992457365) 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 Problem Gastritis (5270750) Gastritis (K29.70) Active c onfirmed Encounters Encounter Location Date Provider Diagnosis [facility] Outpatient [address] [place] [phone] 10/26/2023 Jean Carlos Martínez Encounter for screen [...] * TIBURCIO MARCANO ADOB: (64 yo F)Acc No.[id number]:10/26/2023 EGD and COL/MAC Patient:?HAYLIE MARCANO Provider:?Jean Carlos Martínez MD :1960???Age:62 Y???Sex:Female D ate:10/26/2023 Address:[address] [place] [address] Pcp:Jewel Nuñez MD Subjective: * Chief Complaints: [...] - K44.9??? Plan: * Treatment: * Procedure Codes:?79657 COLON OSCOPY AND BIOPSY, Modifiers: 33 , 15565 UPPER GI ENDOSCOPY, BIOPSY * * The named appointment provid er may or may not be the originator of this progress note, and it is not deemed complete until electronically signed by the appointment provider. Sign off status: Pending * Provider:?Jean Carlos Martínez MD Date:? 023 Generated for Mg camejo/Fidelia/eTransmitting on:?03/17/2025 02:28 PM EDT
[2025-03-17 14:50] LABS: Erythrocyte Sedimentation Rate 17 MM/HR (0-20)
--- NOTE | 2025-03-17 15:56 | P.HPHOSP_ITS ---
History of Present Illness Date of Service: 03/17/25 Chief Complaint: infected toe 64F PMH diabetes, polycythemia with history of DVT on warfarin, hypertension, hyperlipidemia presented with right 2nd toe erythema. Patient states about 3 weeks prior to presentation her grandson through a toy at her toe, it later scabbed over but felt it was rubbing on her shoe, scabbed then peeled off and wound turned erythematous with yellow drainage. Patient feels well denies fevers. X-ray negative for osteo, ESR unremarkable. Review of Systems 2 Review of Systems: Yes all other systems are reviewed and are negative [facility] Medical History Hx of drainage of abscess DVT (deep venous thrombosis) Arthritis Low back pain Diabetes Elevated cholesterol Colon polyps Mccormack esophagus Bronchial asthma HTN (hypertension) Polycythemia Current use of anticoagulant therapy Family History Father Heart disease Afib Heart attack Maternal Grandmother Lung cancer Maternal Grandfather Prostate CA Paternal Grandmother Heart attack Paternal Grandfather Heart attack Surgical History Previous back surgery Hx of colonoscopy History of hysterectomy History of delivery History of appendectomy History of cholecystectomy Social History Household Members: Spouse Housing: Apartment Alcohol intake: former Patient Tobacco Use Status: Former Tobacco user Tobacco use type: Cigarette Cigarette Packs Per Day: 1 Years Smoked: 25 Advance Directives: No Advance Directives Information Provided: Yes service: No Current occupational status: retired Meds Allergies Allergy/AdvReac Type Severity Reaction Status Date / Time droperidol [From INAPSINE] Allergy Severe Anaphylaxis Verified 03/17/25 10:04 egg [EGG] Allergy Severe Nausea and Verified 03/17/25 10:04 Vomiting latex [LATEX] Allergy Severe HIVES Verified 03/17/25 10:04 metformin [METFORMIN] Allergy Severe DIZZINESS Verified 03/17/25 10:04 AND NAUSEA penicillin V Allergy Severe RASH Verified 03/17/25 10:04 codeine [CODEINE] Allergy Intermediate Rash Verified 03/17/25 10:04 Hydrocodone Bitartrate Allergy Intermediate Rash Uncoded 05/06/25 10:04 Active Medications: Current Medications Acetaminophen (Acetaminophen 325 Mg Tablet) 650 mg PO Q6H PRN PRN Reason: Pain, Mild 1-3,fever,headache Calcium Carbonate (Calcium Carbonate 750 Mg Tab.Chew) 750 mg PO Q4H PRN PRN Reason: Heartburn Dextrose (Dextrose 50 % 25 Gm/50 Ml Syringe) 25 gm IVPUSH Q15M PRN; Protocol PRN Reason: per Hypoglycemia Standing Ord. Glucose (Glucose Gel 15 Gm Gel..Gram.) 15 gm PO Q15M PRN; Protocol PRN Reason: per Hypoglycemia Standing Ord. Vancomycin HCl 1,000 mg/ (Sodium Chloride) 270 mls @ 270 mls/hr IV Q12H [facility] Cefepime HCl (Maxipime) 2 gm in 50 mls @ 100 mls/hr IV Q12H [facility] Vancomycin HCl 1,500 mg/ (Sodium Chloride) 500 mls @ 333.333 mls/hr IV ONCE ONE Stop: 03/17/25 17:29 Vancomycin HCl 750 mg/ Sodium (Chloride) 265 mls @ 265 mls/hr IV Q12H [facility] Insulin Human Lispro (Insulin Lispro 100 Unit/Ml 3 Ml Vial) 0 unit SUBCUT QIDACHS [facility]; Protocol Magnesium Hydroxide (Milk Of Magnesia 30 Ml Oral.Susp) 30 ml PO DAILY PRN PRN Reason: Constipation Melatonin (Melatonin 3 Mg Tablet) 6 mg PO BEDTIME PRN PRN Reason: Insomnia Pharmacy Consult (Consult Rx Vancomycin Dosing) 1 each MISCELLANE DAILY PRN PRN Reason: Consult order Sodium Chloride (0.9 % Sodium Chloride Flush 3 Ml Syringe) 3 ml IVFLUSH [facility] Home Medications ?Medication ?Instructions ?Recorded ?Confirmed ?Last Taken ?Type celecoxib 200 mg capsule 1 cap PO BID 10/25/20 12/26/24 10/23/23 History cholecalciferol (vitamin D3) 50 50 mcg PO DAILY 10/25/20 12/26/24 Unknown History mcg (2,000 unit) capsule (Vitamin D3) fluticasone propionate 50 2 spray intranasal DAILY 10/25/20 12/26/24 Unknown History mcg/actuation nasal spray,suspension omeprazole 20 mg capsule,delayed 1 cap PO DAILY@0630 10/25/20 12/26/24 11/01/20 History release blood sugar diagnostic #10 ea 11/08/20 10/30/24 Unknown History atorvastatin 40 mg tablet 40 mg PO DAILY 12/09/20 12/26/24 Unknown History empagliflozin 25 mg tablet 25 mg PO DAILY 12/09/20 12/26/24 10/25/23 History loratadine 10 mg tablet (Claritin) 10 mg PO DAILY 08/29/23 12/26/24 Unknown History lisinopril 5 mg tablet 5 mg PO DAILY 09/26/23 12/26/24 10/25/23 History tirzepatide 5 mg/0.5 mL 5 mg subcut QWEEK 12/10/24 12/26/24 Unknown History subcutaneous pen injector (Mounjaro) Physical Exam 2 Vital Signs and Narrative: Vital Signs: Last Vital Signs Temp 98.7 F 03/17/25 09:55 Pulse 98 03/17/25 09:55 Resp 18 03/17/25 09:55 BP 126/90 H 03/17/25 09:55 Pulse Ox 97 03/17/25 09:55 O2 Del Method Room Air 03/17/25 09:55 BMI result Body Mass Index 19.6 Results Labs 03/17/25 10:17 03/17/25 10:17 Labs: Laboratory Results - last 24 hr 03/17/25 03/17/25 10:17 13:49 MCV 87.5 MCH 29.8 MCHC 34.1 RDW 12.9 Plt Count 244 MPV 9.4 Immature Gran % (Auto) 0.5 H Neut % (Auto) 74.6 H Lymph % (Auto) 18.8 L [place] % (Auto) 5.1 Eos % (Auto) 0.7 Baso % (Auto) 0.3 Lymph # (Auto) 2.2 [place] # (Auto) 0.6 Eos # (Auto) 0.1 Baso # (Auto) 0.0 Abs Immat Gran (auto) 0.06 H Absolute Neuts (auto) 8.5 H Absolute Nucleated RBC 0.000 Nucleated RBC % (auto) 0.0 ESR 17 Anion Gap 16 Estim Creat Clear Calc 66.5 Estimated GFR > 60 Random Glucose 292 H Lactic Acid 1.9 Calcium 9.2 Imaging Radiologist's Impressions: Impressions Toe X-Ray 03/17/25 10:20 IMPRESSION: No osteomyelitis based on x-ray. Electronically signed by: Yordan Cai MD 03/17/2025 10:51 AM EDT RP Assessment and Plan (1) Polycythemia: Status: Chronic Plan 64F PMH diabetes, polycythemia with history of DVT on warfarin, hypertension, hyperlipidemia presented with right 2nd toe erythema Right 2nd toe cellulitis due to diabetes and injury Vancomycin, cefepime Follow up cultures, Infectious Disease consult, wound care Diabetes Insulin sliding scale History of DVT with polycythemia Warfarin, monitor INR DVT prophylaxis-on Coumadin Full Code Given worsening cellulitis in a patient with diabetes at risk for progression to osteomyelitis and sepsis therefore expected require at least 2 midnights inpatient for IV antibiotics Quality Stroke Does the patient have a stroke diagnosis?: No VTE Prior VTE?: No VTE Risk Level:: Medical - moderate - high VTE Device Contraindication: Treatment Not Indicated VTE Drug Contraindication: N/A - Med Ordered
--- NOTE | 2025-03-17 15:57 | PHA.PROG ---
Admission Date/Time: March 17, 2025 15:25 Indication: OTHER Weight in k.6 kg Adjusted body weight in Kg: [place] body weight in Kg: Obesity Dosing Indication % IBW: Serum Creatinine - Last 168 Hours 03/17/25 10:17 Creatinine 0.77 Estimated CrCl and GFR - Last 168 Hours 03/17/25 10:17 Estim Creat Clear Calc 66.5 Estimated GFR > 60 Vancomycin Loading Dose: 1500 MG Current Vancomycin Dosing Regimen: 750 MG Q 12 HOURS Vancomycin Monitoring using AUC goal of 400 - 600 range with trough as surrogate marker: PREDICTED AUC OF 507 Date and Time for next Vancomycin Level to be drawn: WILL CHECK LEVEL AFTER 2 DOSES Pharmacist Comments on Vancomycin Plan: Vancomycin dosing will take advantage of [employer] as a clinical decision support tool that uses Bayesian modeling to calculate individual patient's pharmacokinetic parameters and forecast the patient's drug concentration time course with the target goal AUC 24 range of 400 - 600 mg/L/hr.
[2025-03-17] MEDS: vancomycin HCL 1,500 MG in 0.9 % Sodium Chloride 500 ML 333.33 MG IV (15:58)
--- NOTE | 2025-03-17 17:16 | PHA.MEDREC ---
Addendum entered by Jessica Martin RPh 03/17/25 18:13: reviewed by [facility] Original Note: Pharmacy Consult ? Medication Reconciliation Pharmacy has completed the medication reconciliation. Spoke with patient who was able to confirm her medications. Patient confirmed she is taking Warfarin 5mg on Sunday, Sunday, Sunday and Fridays and 7.5mg on Sunday, and Saturdays. She confirmed her Monjaro 5mg/0.5mL once a week on Saturdays and confirmed she took it last Wednesday 03/14.
[2025-03-17 17:24] LABS: Glucose, Whole Blood 151 mg/dL (60-115)
[2025-03-17 17:45] VITALS: BP 126/73; PULSE 80; RESP 18; TEMP 36.9; O2SAT 98
[2025-03-17 18:58] LABS: INTERNATIONAL NORM RATIO 1.9 (0.9-1.1)
[2025-03-17] MEDS: Warfarin Sodium 7.5 MG TABLET PO (20:42)
[2025-03-17 20:46] VITALS: BP 133/81; PULSE 76; RESP 20; TEMP 36.7; O2SAT 97
[2025-03-17 21:01] LABS: Glucose, Whole Blood 303 mg/dL (60-115)
[2025-03-17] MEDS: Insulin Lispro 100 UNIT/ML 3 ML VIAL SUBCUT (21:28)
[2025-03-17] MEDS: Atorvastatin Calcium 40 MG TABLET PO (21:33)
[2025-03-17 21:39] VITALS: BP 149/80
[2025-03-17] MEDS: lisinopriL 5 MG TABLET PO (21:39)
[2025-03-18] VITALS (7 sets, daily range): BP systolic 106–144; BP diastolic 61–98; PULSE 75–95; RESP 15–20; TEMP 36.2–36.5; O2SAT 96–99; BMI 33.7
[2025-03-18] MEDS: 0.9 % Sodium Chloride Flush 3 ML SYRINGE IVFLUSH ×3 (00:31→16:51)
[2025-03-18] MEDS: cefEPime HCl/D5W 2 GM/50 ML PIGGYBACK IV ×2 (00:33→12:15)
--- NOTE | 2025-03-18 00:43 | PC.NURSE ---
Pt ambulatory to restroom with steady gait. Pt denies any other needs at this time.
[2025-03-18] MEDS: vancomycin HCL 750 MG in 0.9 % Sodium Chloride 250 ML 265 MG IV ×2 (05:08→16:44)
[2025-03-18 06:14] LABS: Hematocrit 43.4 % (37.0-47.0); Hemoglobin 14.8 g/dl (12.0-16.0); Mean Corpuscular HGB Conc 34.1 g/dl (31.0-35.0); Mean Corpuscular Volume 87.9 fL (80.0-98.0); Mean Platelet Volume 9.6 fL (9.4-12.3); Platelet Count 237 X10*3/uL (160-400); Red Blood Count 4.94 X10*6/uL (4.20-5.50); White Blood Count 9.6 X10*3/uL (4.8-10.8)
[2025-03-18 06:17] LABS: INTERNATIONAL NORM RATIO 1.9 (0.9-1.1); Prothrombin Time 21.8 SEC (10.9-12.4)
[2025-03-18] MEDS: Omeprazole 20 MG CAPSULE.DR PO (06:18)
[2025-03-18 06:37] LABS: Anion Gap 14 (12-20); Blood Urea Nitrogen 19 mg/dL (9-16); Calcium 8.9 mg/dL (8.4-10.2); Carbon Dioxide 21 mmol/L (22-29); Chloride 109 mmol/L (96-108); Creatinine Clr Calc Pharmacy 86.7; Estimated Glomerular Filt Rate > 60; Glucose Random 198 mg/dL (60-115); Magnesium 1.9 mg/dL (1.6-2.6); Sodium 140 mmol/L (135-145)
[2025-03-18 07:24] LABS: Glucose, Whole Blood 181 mg/dL (60-115)
[2025-03-18] MEDS: Cholecalciferol (Vitamin D3) 25 MCG TABLET 50 MCG PO (07:48)
[2025-03-18] MEDS: Insulin Lispro 100 UNIT/ML 3 ML VIAL SUBCUT ×4 (07:48→21:01)
[2025-03-18] MEDS: Loratadine 10 MG TABLET PO (07:48)
--- NOTE | 2025-03-18 09:31 | MHC.CM.PN ---
IMM DELIVERED. PATIENT LIVES IN AN APT W/ . FUNCTIONALLY INDEPENDENT. DENIES USE OF DME OR SERVICES. PCP ASAD RENDON MD COMPLETED HCP NAMING [facility] HER , ANTWON, AND DAUGHTER, MAURICIO. DP: HOME, LIKELY VNA FOR WOUND CARE, NO PREFERRED AGENCY. TO TRANSPORT. CM WILL CONTINUE TO FOLLOW.
--- NOTE | 2025-03-18 11:14 | HO.PM.IMPN ---
Subjective Subjective Date of Service: 03/18/25 Interval History: wound mostly unchanged, surround erythema improved Physical Exam Vital Signs: Vital Signs: Last Vital Signs Temp 97.6 F 03/18/25 06:55 Pulse 78 03/18/25 06:55 Resp 18 03/18/25 06:55 BP 132/74 03/18/25 06:55 Pulse Ox 99 03/18/25 06:55 O2 Del Method Room Air 03/18/25 06:55 BMI result Body Mass Index 33.7 mostly unchanged, surrounding erythema improved Objective Data Active Medications Acetaminophen (Acetaminophen 325 Mg Tablet) 650 mg PO Q6H PRN PRN Reason: Pain, Mild 1-3,fever,headache Atorvastatin Calcium (Atorvastatin Calcium 40 Mg Tablet) 40 mg PO BEDTIME [facility] Last Admin: 03/17/25 21:33 Dose: 40 mg Documented By: TRE Calcium Carbonate (Calcium Carbonate 750 Mg Tab.Chew) 750 mg PO Q4H PRN PRN Reason: Heartburn Dextrose (Dextrose 50 % 25 Gm/50 Ml Syringe) 25 gm IVPUSH Q15M PRN; Protocol PRN Reason: per Hypoglycemia Standing Ord. Glucose (Glucose Gel 15 Gm Gel..Gram.) 15 gm PO Q15M PRN; Protocol PRN Reason: per Hypoglycemia Standing Ord. Cefepime HCl (Maxipime) 2 gm in 50 mls @ 100 mls/hr IV Q12H [facility] Last Infusion: 03/18/25 01:03 Dose: Infused Documented By: JEZ Vancomycin HCl 750 mg/ Sodium (Chloride) 265 mls @ 265 mls/hr IV Q12H [facility] Last Infusion: 03/18/25 06:19 Dose: Infused Documented By: OPAL Insulin Human Lispro (Insulin Lispro 100 Unit/Ml 3 Ml Vial) 0 unit SUBCUT QIDACHS [facility]; Protocol Last Admin: 03/18/25 07:48 Dose: 2 unit Documented By: ANTOINE Lisinopril (Lisinopril 5 Mg Tablet) 5 mg PO BEDTIME [facility]; Protocol Last Admin: 03/17/25 21:39 Dose: 5 mg Documented By: TRE Loratadine (Loratadine 10 Mg Tablet) 10 mg PO DAILY [facility] Last Admin: 03/18/25 07:48 Dose: 10 mg Documented By: ANTOINE Magnesium Hydroxide (Milk Of Magnesia 30 Ml Oral.Susp) 30 ml PO DAILY PRN PRN Reason: Constipation Melatonin (Melatonin 3 Mg Tablet) 6 mg PO BEDTIME PRN PRN Reason: Insomnia Omeprazole (Omeprazole 20 Mg Capsule.Dr) 20 mg PO DAILY@0630 [facility] Last Admin: 03/18/25 06:18 Dose: 20 mg Documented By: OPAL Pharmacy Consult (Consult Rx Vancomycin Dosing) 1 each MISCELLANE DAILY PRN PRN Reason: Consult order Sodium Chloride (0.9 % Sodium Chloride Flush 3 Ml Syringe) 3 ml IVFLUSH QSHIFT [facility] Last Admin: 03/18/25 07:49 Dose: 3 ml Documented By: ANTOINE Vitamin D (Cholecalciferol (Vitamin D3) 25 Mcg Tablet) 50 mcg PO DAILY [facility] Last Admin: 03/18/25 07:48 Dose: 50 mcg Documented By: ANTOINE Warfarin Sodium (Warfarin Sodium 7.5 Mg Tablet) 7.5 mg PO TUTHSA@1800 [facility] Last Admin: 03/17/25 20:42 Dose: 7.5 mg Documented By: TRE Warfarin Sodium (Warfarin Sodium 5 Mg Tablet) 5 mg PO SuMoWeFr@1800 [facility] Labs 03/18/25 05:12 03/18/25 05:12 Labs: Laboratory Results - last 24 hr 03/17/25 03/17/25 03/17/25 13:49 17:19 18:45 MCV MCH MCHC RDW Plt Count MPV Absolute Nucleated RBC Nucleated RBC % (auto) ESR 17 PT 22.0 H INR 1.9 H Anion Gap Estim Creat Clear Calc Estimated GFR POC Glucose 151 H Random Glucose Lactic Acid 1.9 Calcium Magnesium 03/17/25 03/18/25 03/18/25 20:55 05:12 07:13 MCV 87.9 MCH 30.0 MCHC 34.1 RDW 13.0 Plt Count 237 MPV 9.6 Absolute Nucleated RBC 0.000 Nucleated RBC % (auto) 0.0 ESR PT 21.8 H INR 1.9 H Anion Gap 14 Estim Creat Clear Calc 86.7 Estimated GFR > 60 POC Glucose 303 H 181 H Random Glucose 198 H Lactic Acid Calcium 8.9 Magnesium 1.9 Assessment and Plan (1) Polycythemia: Status: Chronic Plan 64F PMH diabetes, polycythemia with history of DVT on warfarin, hypertension, hyperlipidemia presented with right 2nd toe erythema Right 2nd toe cellulitis due to diabetes and injury Vancomycin, cefepime Follow up cultures, Infectious Disease consult, wound care Diabetes Insulin sliding scale History of DVT with polycythemia Warfarin, monitor INR DVT prophylaxis-on Coumadin Full Code reason for continued hospitalization:iv abx for dfu Quality Stroke Does the patient have a stroke diagnosis?: No VTE Prior VTE?: No VTE Risk Level:: Medical - moderate - high VTE Device Contraindication: Treatment Not Indicated VTE Drug Contraindication: N/A - Med Ordered
[2025-03-18 11:58] LABS: Glucose, Whole Blood 160 mg/dL (60-115)
--- NOTE | 2025-03-18 16:01 | HO.WOUND ---
Wound Consult: Initial 64yr old? female [place] [facility] [place]17[place]25 15:25 - See progress notes and H&P for detailed history.? Wound consult placed for Right 2nd Toe.? Patient chart review and discussed with direct care nurse. Right Second Toe Etiology: Diabetic wound?? Wound Bed: marbled with red pink moist tissue and yellow slough Edges: ? well defined [place] wound: pink red tissue Goals of Treatment: ? Durafiber AG for moisture management Recommendations: 1. Turn and Reposition every 2 hours and as needed for patient comfort.? Use pillows or wedges to support off loading positions. 2. Off Load all bony prominences with use of pillows and heel boots if needed.? Apply Preventative foams where needed. ? 3. Monitor for incontinence and moisture control, use barrier creams when needed for prevention and treatment. 4. Provide adequate and supplemental nutrition.? 5. Order low air loss mattress. 6. When applicable maintain blood glucose levels per Providers order. Right 2nd Toe - Cleanse with NS moist gauze, pat dry. Apply skin prep to periwound. Cover wound bed with Durafiber AG, cover with dry gauze, and wrap. Change every other day. Re-consult wound care Nurse for wound deterioration or wound changes.
[2025-03-18 16:13] LABS: Glucose, Whole Blood 171 mg/dL (60-115)
--- NOTE | 2025-03-18 16:31 | HE.PHANOTE ---
SUDHA Changed dose to 750 Q8H as trough after 2 doses was subtherapeutic and renal function appears stable. Predicted AUC 504, trough 15.4. Next trough: 5/8 @1500.
[2025-03-18] MEDS: Warfarin Sodium 5 MG TABLET PO (17:48)
[2025-03-18 20:35] LABS: Glucose, Whole Blood 163 mg/dL (60-115)
[2025-03-18] MEDS: lisinopriL 5 MG TABLET PO (21:00)
[2025-03-18] MEDS: Atorvastatin Calcium 40 MG TABLET PO (21:01)
[2025-03-19] MEDS: cefEPime HCl/D5W 2 GM/50 ML PIGGYBACK IV (00:49)
[2025-03-19] MEDS: 0.9 % Sodium Chloride Flush 3 ML SYRINGE IVFLUSH ×2 (00:54→08:08)
[2025-03-19] MEDS: vancomycin HCL 750 MG in 0.9 % Sodium Chloride 250 ML 265 MG IV ×2 (01:34→08:08)
[2025-03-19 03:13] VITALS: BP 113/57; PULSE 86; RESP 17; TEMP 36.6; O2SAT 94
[2025-03-19] MEDS: Omeprazole 20 MG CAPSULE.DR PO (06:35)
[2025-03-19 07:07] LABS: INTERNATIONAL NORM RATIO 2.4 (0.9-1.1)
[2025-03-19 07:19] LABS: Creatinine Clr Calc Pharmacy 93.9; Estimated Glomerular Filt Rate > 60
[2025-03-19 07:54] VITALS: BP 132/55; PULSE 97; RESP 16; TEMP 36.4; O2SAT 96
[2025-03-19 08:08] LABS: Glucose, Whole Blood 231 mg/dL (60-115)
[2025-03-19] MEDS: Insulin Lispro 100 UNIT/ML 3 ML VIAL SUBCUT (08:08)
[2025-03-19] MEDS: Cholecalciferol (Vitamin D3) 25 MCG TABLET 50 MCG PO (08:09)
[2025-03-19] MEDS: Loratadine 10 MG TABLET PO (08:10)
--- NOTE | 2025-03-19 10:28 | PM.DS ---
DS: Providers Provider Date of Service: 03/19/25 Date of admission: 03/17/25 15:25 Date of discharge: 03/19/25 Primary care physician: Jewel Nuñez MD Consults: 03/17/25 15:52 Consult to Infectious Diseases Routine Consulting Provider: [facility] [place] [place] [facility] Reason for consultation: dfu 03/18/25 10:28 Consult to Wound Care Routine Reason for consultation: right 2nd toe DS: Diagnosis Discharge Diagnosis (1) Polycythemia: Status: Chronic DS: Summary Hospital Course Hospital Course: from initial hpi: 64F PMH diabetes, polycythemia with history of DVT on warfarin, hypertension, hyperlipidemia presented with right 2nd toe erythema. Patient states about 3 weeks prior to presentation her grandson through a toy at her toe, it later scabbed over but felt it was rubbing on her shoe, scabbed then peeled off and wound turned erythematous with yellow drainage. Patient feels well denies fevers. X-ray negative for osteo, ESR unremarkable. hospital course: Patient was admitted for right 2nd toe cellulitis due to diabetes and injury. Was treated with vancomycin cefepime. Cellulitis resolved. Was seen by wound care recommended local care. On discharge will continue 5 days of Keflex and doxycycline. For diabetes was continued on insulin sliding scale. For history of DVT with polycythemia continued on warfarin. Patient is feeling better will be discharged home. Time Attestation Discharge Coordination Time (in mins): 34 Quality: Safe Use of Opioids Does Pt have an Active Cancer Diagnosis on the Problem List?: No Quality: Stroke Does the patient have a stroke diagnosis?: No Physical Exam Vital Signs: Vital Signs: Last Vital Signs Temp 97.6 F 03/19/25 07:54 Pulse 97 03/19/25 07:54 Resp 16 03/19/25 07:54 BP 132/55 L 03/19/25 07:54 Pulse Ox 96 03/19/25 07:54 O2 Del Method Room Air 03/19/25 07:54 BMI result Body Mass Index 33.7 mostly unchanged, surrounding erythema improved DS: Data Data Completed and Pending Labs on day of discharge: Laboratory Results - last 24 hr 03/18/25 03/18/25 03/18/25 11:54 15:26 16:10 Hold Purple Top PT INR Creatinine Estim Creat Clear Calc Estimated GFR POC Glucose 160 H 171 H Random Vancomycin 8.0 L 03/18/25 03/19/25 03/19/25 20:29 06:16 07:56 Hold Purple Top SEE NOTE PT 28.0 H D INR 2.4 H Creatinine 0.73 Estim Creat Clear Calc 93.9 Estimated GFR > 60 POC Glucose 163 H 231 H Random Vancomycin Preliminary micro results at discharge 03/17/25 13:49 Blood Culture - Preliminary Blood - Venous No growth after 24 hours. 03/17/25 13:51 Blood Culture - Preliminary Blood - Venous No growth after 24 hours. Discharge Plan Discharge Anticipated Discharge Date/Time: 03/19/25 10:24 Patient Disposition: Home, Self-Care Discharge Diagnosis: DFU Referrals: Jewel Nuñez MD [Primary Care Provider] - 1 Week Discharge Medications: New doxycycline hyclate 100 mg tablet 100 mg PO BID Qty: 10 0RF cephalexin 500 mg capsule 500 mg PO Q12H Qty: 10 0RF (DME) Durafiber Dressing 2 X 2 bandage See Rx Instructions .Route Qty: 200 0RF Rx Instructions: As directed (DME) gauze bandage 1 X 5 -yard bandage See Rx Instructions .Route Qty: 12 0RF Rx Instructions: As directed Continued celecoxib 200 mg capsule 200 cap PO BID omeprazole 20 mg capsule,delayed release(DR/EC) 20 mg PO DAILY@0630 cholecalciferol (vitamin D3) [Vitamin D3] 50 mcg (2,000 unit) Capsule 50 mcg PO DAILY warfarin 5 mg Tablet 7.5 mg PO TUTHSA@1800 warfarin 5 mg tablet 5 mg PO SuMoWeFr@1800 (DME) blood sugar diagnostic Strip See Rx Instructions Not Applicable BID Qty: 10 Rx Instructions: As directed atorvastatin 40 mg tablet 40 mg PO BEDTIME empagliflozin 25 mg tablet 25 mg PO DAILY lisinopril 5 mg tablet 5 mg PO BEDTIME loratadine [Claritin] 10 mg tablet 10 mg PO DAILY Mounjaro 5 mg/0.5 mL pen injector 5 mg subcut SA Discharge Orders: Discharge Order (Routine); Ordered 03/19/25 Ordered By: Quan Nash Diet: Advance to usual diet Activity on Discharge: As tolerated Stand Alone Forms: Patient Portal Discharge page Print Language: Kazakh Care Plan Goals: recovery Health Concerns: dfu Plan of Treatment: Cleanse with NS moist gauze, pat dry. Apply skin prep to periwound. Cover wound bed with Durafiber AG, cover with dry gauze, and wrap. Change every other day 5 days doxy and keflex Assessment: see above
--- NOTE | 2025-03-19 11:11 | PC.NURSE ---
Pt for discharge to home with VNA. Pts foot dressing changed prior to discharge and pt instructed on how to do dressing changes at home . pt reports she will be able to do herself was given supplies . pt accepting of discharge and receptive to teaching
--- NOTE | 2025-03-19 11:35 | MHC.CM.PN ---
DP: PT HAS BEEN MEDICALLY CLEARED FOR DC HOME, NO SERVICES. PT'S FAMILY WILL TRANSPORT HOME.
[2025-03-19 12:00] VITALS: BP 141/76; PULSE 94; RESP 18; TEMP 36.2
== END 2025-03-19 12:29 | disposition home or self-care (01) | DRG 639 ==
LOC: HO.ED 13:13 → HO.EDOVER 15:37 → HO.S3 03-18 06:11
PROVIDERS: Emergency Medicine; Admitting Provider Internal Medicine; Emergency Provider Emergency Medicine Emergency Medical Services; PCP Internal Medicine; Visit Provider Internal Medicine
DX: E11.628 Type 2 diabetes mellitus with other skin complications (principal); E11.621 Type 2 diabetes mellitus with foot ulcer; L97.519 Non-pressure chronic ulcer of other part of right foot with unspecified severity; L03.031 Cellulitis of right toe; D75.1 Secondary polycythemia; Z87.891 Personal history of nicotine dependence; Z86.718 Personal history of other venous thrombosis and embolism; Z79.01 Long term (current) use of anticoagulants; Z79.899 Other long term (current) drug therapy
CPT/HCPCS: 36415; 73660; 80048; 80202; 82565; 82947; 83605; 83735; 85025; 85027; 85610; 85652; 87040; 99285; J0692; J3370; J3371

== ENCOUNTER → 2025-03-17 10:20 | Outpatient (BNV) | payer MEDICARE, OTHER, SELFPAY | PROVIDERS: PCP Internal Medicine; Visit Provider Radiology Diagnostic Radiology | DX: S91.104A Unspecified open wound of right lesser toe(s) without damage to nail, initial encounter (principal) | CPT/HCPCS: 73660 ==

== ENCOUNTER → 2025-03-17 15:25 | Outpatient (BNV) | payer MEDICARE, OTHER, SELFPAY | PROVIDERS: Admitting Provider Internal Medicine; Emergency Provider Emergency Medicine Emergency Medical Services; PCP Internal Medicine; Visit Provider Internal Medicine | DX: D75.1 Secondary polycythemia (principal) | CPT/HCPCS: 99223; 99232; 99239 ==

== ENCOUNTER → 2025-03-20 10:55 | Outpatient (BNVA) | payer MEDICARE, OTHER, SELFPAY | PROVIDERS: PCP Internal Medicine; Visit Provider Internal Medicine Medical Oncology | DX: Z13.89 Encounter for screening for other disorder (principal) ==

== ENCOUNTER 2025-03-25 10:59 | Outpatient (AMB) | payer MEDICARE, OTHER, SELFPAY ==
--- NOTE | 2025-03-25 11:21 | MHC.OFFVISCO ---
Intake Intake Visit Reasons: Anticoagulation Allergies droperidol [From INAPSINE] Allergy (Severe, Verified 03/25/25 11:05) Anaphylaxis egg [EGG] Allergy (Severe, Verified 03/25/25 11:05) Nausea and Vomiting latex [LATEX] Allergy (Severe, Verified 03/25/25 11:05) HIVES metformin [METFORMIN] Allergy (Severe, Verified 03/25/25 11:05) DIZZINESS AND NAUSEA penicillin V Allergy (Severe, Verified 03/25/25 11:05) RASH codeine [CODEINE] Allergy (Intermediate, Verified 03/25/25 11:05) Rash Hydrocodone Bitartrate Allergy (Intermediate, Uncoded 03/20/25 10:55) Rash Medication List - Last Reconciled 03/25/25 by Rebecca Crook RN atorvastatin 40 mg PO BEDTIME blood sugar diagnostic As directed celecoxib 200 caps PO BID cephalexin 500 mg PO Q12H cholecalciferol (vitamin D3) (Vitamin D3) 50 mcg PO DAILY doxycycline hyclate 100 mg PO BID empagliflozin 25 mg PO DAILY gauze bandage As directed hydrocolloid dressing (Durafiber Dressing) As directed lisinopril 5 mg PO BEDTIME loratadine (Claritin) 10 mg PO DAILY omeprazole 20 mg PO DAILY@0630 tirzepatide (Mounjaro) 5 mg subcut SA warfarin 7.5 mg See Protocol PO TUTHSA@1800 warfarin 5 mg See Protocol PO SuMoWeFr@1800 Nursing Note PT.HAS COMPLETED KEFLEX AND DOXY, AND STARTED LEVAQUIN TODAY(X 1 WEEK) WILL CONTINUE USUAL WARFARIN DOSE ( EXCEPT WILL DECREASE ON 03/28 TO 5MGM) AND FOLLOW-UP HERE ON 03/31. PT.STATES THAT SHE FEELS MUCH BETTER, AND FOOT IS IMPROVING. SHE IS MONITORING THE INFECTION CLOSELY FOR ANY CHANGES. Anti-Coag Initial Assessment Social Hx Patient Tobacco Use Status: Former Tobacco user Tobacco use type: Cigarette Smoking packs per day: 1 alcohol intake: former Alcohol intake frequency: does not drink Coding Level of Care Code Est Patient Level 1 Diagnoses Current use of anticoagulant therapy Z79.01 Assessment & Plan Assessment & Plan (1) Current use of anticoagulant therapy: Code(s): Z79.01 - alf (current) use of anticoagulants
--- OUTSIDE RECORDS SUMMARY | 2025-03-25 12:00 | XMS_ITS ---
Author Organization [facility] Address [address] [place] [address] Care Team Providers Care Sap Solutions Architect Name Role Phone Jewel Nuñez MD Primary Care Provider Jean Carlos Meadows Unavailable [phone] Freda Patel Unavailable Unavailable REASON FOR VISIT gerd,screening,hx polyps Problems Problem Type SNOMED Code ICD Code Onset Dates Problem Status W/U Status Risk Notes Problem Diverticular disease of colon (891767596) Diverticulosis of large intestine without perforation or abscess without bleeding (K57.30) Active confirmed Problem Gastroesophageal reflux disease (979081110) Gastroesophageal reflux disease (K21.9) Active confirmed Problem Mccormack esophagus (944126710) 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 Problem Gastritis (3468818) Gastritis (K29.70) Active c onfirmed Encounters Encounter Location Date Provider Diagnosis [facility] Out[facility] [address] [place] [phone] 10/26/2023 Jean Carlos Martínez Encounter for screen [...] * TIBURCIO MARCANO ADOB: (64 yo F)Acc No.[id number]:10/26/2023 EGD and COL/MAC Patient:?HAYLIE MARCANO Provider:?Jean Carlos Martínez MD :1960???Age:62 Y???Sex:Female D ate:10/26/2023 Address:[address] [place] [address] Pcp:Jewel Nuñez MD Subjective: * Chief Complaints: [...] - K44.9??? Plan: * Treatment: * Procedure Codes:?91663 COLON OSCOPY AND BIOPSY, Modifiers: 33 , 66615 UPPER GI ENDOSCOPY, BIOPSY * * The named appointment provid er may or may not be the originator of this progress note, and it is not deemed complete until electronically signed by the appointment provider. Sign off status: Pending * Provider:?Jean Carlos Martínez MD Date:? 023 Generated for Mg camejo/Fidelia/eTransmitting on:?03/25/2025 12:00 PM EDT
--- OUTSIDE RECORDS SUMMARY | 2025-03-25 12:00 | XMS_ITS | Clinical Summary ---
Author Organization [facility] ity Address [address] [place] [address] Care Team Providers Care Partnership Manager Name Role Phone Unavailable Primary Care Provider [...] Procedure Name Priority Date/Time Associated Diagnosis Comments [facility] SCREENING DIGITAL Routine 09/03/2022 8:59 AM EDT Encounter for screening mammogram for malignant neoplasm of breast [facility] DEXA AXIAL SKELETON Routine 12/20/2020 3:43 PM EST Encounter for screening for osteoporosis from Last 3 Months or Most Recently Relevant to Health Maintenance Results * [facility] SCREENING DIGITAL (09/03/2022 8:59 AM EDT) Anatomical Region Laterality Modality Mammography 08/31/2022 10:1 7 AM EDT Narrative 09/03/2022 8:[address] [facility] Diagnostic Imaging Department [address] [place] [address] Patient: ??TIBURCIO ZELAYA ?/Age/Sex: 1960 - 61 - F Unit#: ??[id number] ? Location/Status: ??SPDIMAM/PRE CLI ? Mnemonic/Ordering Site: ??DIGSC/SPMAM Ordering Physician: ??JEWEL NUÑEZ MD [facility] Screening Digital - 09/02/22 - 1004 EXAM: [facility] Screening Digital EXAM DATE AND TIME: 09/02/2022 10:04 AM HISTORY: ??Annual screening mammography. ??Limited mobility of the right shoulder due to injury. COMPARISON: ??09/25/2020 through 12/31/2015. TECHNIQUE: CC and MLO views of both breasts were obtained using full field digital mammography. Bilateral digital breast tomosynthesis was performed in the MLO projection. 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 TISSUE DENSITY: a. The breasts [...] Routine screening mammogram BILATERAL in 1 year. 22933, 83410 3342F, 7025F Dictating Physician: ??AMARILIS PRESTON MD Electronically Signed by: ??AMARILIS PRESTON MD Dic Date/Time: ??09/03/22 0856 Sign date/Time: ??09/03/22 0859 Procedure Note Lisa Preston MD - 11/01/2022 [facility] Diagnostic Imaging Department [address] [place] [address] [id number] Patient: TIBURCIO ZELAYA D.O.B./Age/Sex: 1960 - 61 - F Unit#: [id number] Location/Status: SPDIMAM/PRE CLI Mnemonic/Ordering Site: [facility] Ordering Physician: JEWEL NUÑEZ MD [facility] Screening Digital - 09/02/22 - 1004 EXAM: [facility] Screening Digital EXAM DATE AND TIME: 09/02/2022 10:04 AM HISTORY: Annual screening mammography. Limited mobility of the rightshoulder due to injury. COMPARISON: 09/25/2020 through 12/31/2015. TECHNIQUE: CC and MLO views of both breasts were obtained using fullfield digital mammography. Bilateral digital breast tomosynthesis was performedin the MLO projection. 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 TISSUE DENSITY: a. The breasts are [...] Routine screening mammogram BILATERAL in 1 year. 81356, 42862 3342F, 7025F Dictating Physician: AMARILIS PRESTON MD Electronically Signed by: AMARILIS PRESTON MD Dic Date/Time: 09/03/22 0856 Sign date/Time: 09/03/22 0859 Jewel Nuñez MD IMG BI PROCEDURES Final Result * [facility] DEXA AXIAL SKELETON (12/20/2020 3:43 PM EST) Anatomical Region Laterality Modality Mammography 12/20/2020 2:40 PM EST Narrative 12/20/2020 3:43 PM [facility] Diagnostic Imaging Department [address] [place] [address] Patient: ??TIBURCIO ZELAYA ?/Age/Sex: 1960 - Unit#: ??[id number] ? [facility]: [facility] Mnemonic/Ordering Site: ??MAMDEXAAX/SPMAM Ordering Physician: ??ENEIDA PAYAN NP [facility] Dexa Axial Skeleton - 12/20/201531 HISTORY: [...] probability of hip fracture of 0.7%. Code 05015 Dictating Physician: ??TERRIE MARIA MD Electronically Signed by: ??TERRIE MARIA MD Dic Date/Time: ??12/20/201541 Sign date/Time: ??12/20/201542 Procedure Note Terrie Maria MD - 10/31/2022 [facility] Diagnostic Imaging Department [address] [place] [address] Patient: TAVOSarbjitTIBURCIO./Age/Sex: 1960 - 60 - F Unit#: [id number] Location/Status: [facility]emonic[facility] Ordering Physician: ENEIDA PAYAN NP [facility] Dexa Axial Skeleton - 12/20/201531 HISTORY: [...] density of the femurs bilaterally is 0.972 gm/dn6ldojr is 96% of that of young normals [...] probability of hip fracture of 0.7%. Code 15919 Dictating Physician: TERRIE MARIA MD Electronically Signed by: TERRIE MARIA MD Dic Date/Time: 12/20/20 1542 Sign date/Time: 12/20/20 1543 us Eneida Payan NP IMG BI PROCEDURES Final Resul t from Last 3 Months or Most Recently Relevant to Health Maintenance
--- OUTSIDE RECORDS SUMMARY | 2025-03-25 12:01 | XMS_ITS ---
Author Organization [facility] Address [address] [place] [address] Care Team Providers Care Engine Boss Name Role Phone Jewel Nuñez MD Primary Care Provider Jean Carlos Meadows [phone] Freda Patel Unavailable Unavailable REASON FOR VISIT Trulicity-speak with the [facility] office Encounters Encounter Location Date Provider Diagnosis [facility] [address] [place] [address] 10/21/2023 Jean Carlos aMrtínez Plan Of Treatment No Information Progress Notes * TIBURCIO MARCANO ADOB: (62 yo F)Acc No.[id number]:10/21/2023 Patient:?HAYLIE MARCANO :1960???Age:62 Y???Sex:Female Address:[address] [place] [address], [address] * true * Date:? Generated for Elliotti bashir/Fidelia/eTransmitting on:?03/25/2025 12:00 PM EDT
--- OUTSIDE RECORDS SUMMARY | 2025-03-25 12:01 | XMS_ITS | Patient Health Record ---
Author Organization [facility] Address [address] [place] [address] Care Team Providers Care Sulfonation Equipment Operator Name Role Phone Jewel Nuñez MD Primary Care Provider Jean Carlos Meadows Unavailable [phone] Freda Patel Unavailable Unavailable Allergies Allergen (clinical [...] MG TAKE 1 CAPSULE BY MO [facility] EVERY DAY for 90 Active Warfarin [...] Problem Status W/U Status Risk Notes Problem 184883191 Encounter for screening for malignant neoplasm of colon (Z12.11) Active confirmed Problem 487643698 History of adenomatous polyp of colon (Z86.010) Active confirmed Problem 199508724 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) Active confirmed Problem Diverticular disease of colon (892316120) Diverticulosis of large intestine without perforation or abscess without bleeding (K57.30) Active confirmed Problem Gastroesophageal reflux disease (225583594) Gastroesophageal reflux disease (K21.9) Active confirmed Problem 481967470 Gastroesophageal reflux disease without esophagitis (K21.9) Active confirmed Problem 682283908 Tubular adenoma of colon (D12.6) Active confirmed Problem 453046400 Gastroesophageal reflux disease, esophagitis presence not specified (K21.9) Active confirmed Problem Gastritis (7560482) Gastritis (K29.70) Active c onfirmed Problem Mccormack esophagus (206815329) 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 Plan Of Treatment Future Test Test Name Order Date COLONOSCOPY 11/27/2012 UPPER GI ENDOSCOPY 09/02/2019 COLONOSCOPY 09/02/2019 COLONOSCOPY 03/30/2020 UPPER GI ENDOSCOPY 07/19/2023 COLONOSCOPY 07/19/2023 Insurance Providers Payer Name Payer Address Payer Phone Subscriber Number Group Number Insured Name Patient Relationship to Insured Coverage Start Date Coverage End Date [facility] [address] [place] [address] [id number] TIBURCIO MARCANO Self - patient is the insured Medical (General) History Medical History History ICD Code HTN Denies [place],CVA,Lung disease,renal disease Polycythemia vera since 2010-gets a [...]
== END 2025-03-25 11:26 | disposition home or self-care (01) ==
LOC: HO.ACS 10:59
PROVIDERS: PCP Internal Medicine; Visit Provider Internal Medicine Medical Oncology
DX: Z79.01 Long term (current) use of anticoagulants (principal)

== ENCOUNTER → 2025-03-25 10:59 | Outpatient (BNVA) | payer MEDICARE, OTHER, SELFPAY | PROVIDERS: PCP Internal Medicine; Visit Provider Internal Medicine Medical Oncology | DX: I82.503 Chronic embolism and thrombosis of unspecified deep veins of lower extremity, bilateral (principal); Z79.01 Long term (current) use of anticoagulants; Z51.81 Encounter for therapeutic drug level monitoring | CPT/HCPCS: 85610; 99211 ==

== ENCOUNTER 2025-03-31 13:01 | Outpatient (AMB) | payer MEDICARE, OTHER, SELFPAY ==
[2025-03-31 13:11] LABS: Prothrombin Time Whole Bld POC 22.4 sec (11.1-13.5); ~PT, ~INR - Anti Coag Clinic 1.9 (0.9-1.1)
--- NOTE | 2025-03-31 13:21 | MHC.OFFVISCO ---
Intake Intake Visit Reasons: Anticoagulation Allergies droperidol [From INAPSINE] Allergy (Severe, Verified 03/31/25 13:06) Anaphylaxis egg [EGG] Allergy (Severe, Verified 03/31/25 13:06) Nausea and Vomiting latex [LATEX] Allergy (Severe, Verified 03/31/25 13:06) HIVES metformin [METFORMIN] Allergy (Severe, Verified 03/31/25 13:06) DIZZINESS AND NAUSEA penicillin V Allergy (Severe, Verified 03/31/25 13:06) RASH codeine [CODEINE] Allergy (Intermediate, Verified 03/31/25 13:06) Rash Hydrocodone Bitartrate Allergy (Intermediate, Uncoded 03/20/25 10:55) Rash Medication List - Last Reconciled 03/31/25 by Rebecca Crook RN atorvastatin 40 mg PO BEDTIME blood sugar diagnostic As directed celecoxib 200 caps PO BID cephalexin 500 mg PO Q12H cholecalciferol (vitamin D3) (Vitamin D3) 50 mcg PO DAILY doxycycline hyclate 100 mg PO BID empagliflozin 25 mg PO DAILY gauze bandage As directed hydrocolloid dressing (Durafiber Dressing) As directed lisinopril 5 mg PO BEDTIME loratadine (Claritin) 10 mg PO DAILY omeprazole 20 mg PO DAILY@0630 tirzepatide (Mounjaro) 5 mg subcut SA warfarin 7.5 mg See Protocol PO TUTHSA@1800 warfarin 5 mg See Protocol PO SuMoWeFr@1800 Nursing Note PT.STATES THAT SHE HAS 3 DAYS REMAINING ON LEVAQUIN. WILL RESUME PREVIOUS WARFARIN DOSING(7.5MG X3 5MG X4) AND FOLLOW-UP IN 1 WEEK. NO GREENS 1-2 DAYS GOOD UNDERSTANDING OF DOSING INSTR. 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
--- OUTSIDE RECORDS SUMMARY | 2025-03-31 14:06 | XMS_ITS | Patient Health Record ---
Author Organization [facility] Address [address] [place] [address] Care Team Providers Care Stump Blower Name Role Phone Jewel Nuñez MD Primary Care Provider Jean Carlos Meadows Unavailable [phone] Freda Patel Unavailable Unavailable Allergies Allergen (clinical drug ingredient) Drug/Non Drug Allergy documented on EMR Reaction Allergy Type Onset Date Status metformin Metformin HCl nausea and vomiting Drug Allergy Active Inapsine Unknown Drug Allergy Active acetaminophen / hydrocodone Hydrocodone-Aceta minophen nausea Drug Allergy Active codeine Codeine Sulfate palptations Drug Allergy Active Penicillin Unknown Drug Allergy Active Latex Gloves rash Drug Allergy Acti ve Vicodin Unknown Drug Allergy Active Reason For Referral No Information Medications Medication [...] 20 MG TAKE 1 CAPSULE BY [place] [facility] EVERY DAY for 90 Active Warfarin [...] Problem Status W/U Status Risk Notes Problem 573978048 Encounter for screening for malignant neoplasm of colon (Z12.11) Active confirmed Problem 934336792 History of adenomatous polyp of colon (Z86.010) Active confirmed Problem 860456854 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) Active confirmed Problem Diverticular disease of colon (380936493) Diverticulosis of large intestine without perforation or abscess without bleeding (K57.30) Active confirmed Problem Gastroesophageal reflux disease (296240475) Gastroesophageal reflux disease (K21.9) Active confirmed Problem 190160225 Gastroesophageal reflux disease without esophagitis (K21.9) Active confirmed Problem 696371126 Tubular adenoma of colon (D12.6) Active confirmed Problem 339474236 Gastroesophageal reflux disease, esophagitis presence not specified (K21.9) Active confirmed Problem Gastritis (3058526) Gastritis (K29.70) Active c onfirmed Problem Mccormack esophagus (456352782) 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 Plan Of Treatment Future Test Test Name Order Date COLONOSCOPY 11/27/2012 UPPER GI ENDOSCOPY 09/02/2019 COLONOSCOPY 09/02/2019 COLONOSCOPY 03/30/2020 UPPER GI ENDOSCOPY 07/19/2023 COLONOSCOPY 07/19/2023 Insurance Providers Payer Name Payer Address Payer Phone Subscriber Number Group Number Insured Name Patient Relationship to Insured Coverage Start Date Coverage End Date [facility] [address] [place] [address] [id number] TIBURCIO MARCANO Self - patient is the insured Medical (General) History Medical History History ICD Code HTN Denies [place],CVA,Lung disease,renal disease Polycythemia vera since 2010-gets a [...]
--- OUTSIDE RECORDS SUMMARY | 2025-03-31 14:06 | XMS_ITS ---
Author Organization [facility] Address [address] [place] [address] Care Team Providers Care Thoracic Medicine Physician Name Role Phone Jewel Nuñez MD Primary Care Provider Jean Carlos Meadows Unavailable [phone] Freda Patel Unavailable Unavailable REASON FOR VISIT gerd,screening,hx polyps Problems Problem Type SNOMED Code ICD Code Onset Dates Problem Status W/U Status Risk Notes Problem Diverticular disease of colon (752483124) Diverticulosis of large intestine without perforation or abscess without bleeding (K57.30) Active confirmed Problem Gastroesophageal reflux disease (237707595) Gastroesophageal reflux disease (K21.9) Active confirmed Problem Mccormack esophagus (154925448) 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 Problem Gastritis (6567079) Gastritis (K29.70) Active c onfirmed Encounters Encounter Location Date Provider Diagnosis [facility] [place] [address] [place] [phone] 10/26/2023 Jean Carlos Martínez Encounter for screen [...] * TIBURCIO MARCANO ADOB: (64 yo F)Acc No.[id number]:10/26/2023 EGD and COL/MAC Patient:?HAYLIE MARCANO Provider:?Jean Carlos Martínez MD :1960???Age:62 Y???Sex:Female D ate:10/26/2023 Address:[address] [place] [address] Pcp:Jewel Nuñez MD Subjective: * Chief Complaints: [...] - K44.9??? Plan: * Treatment: * Procedure Codes:?09918 COLON OSCOPY AND BIOPSY, Modifiers: 33 , 87493 UPPER GI ENDOSCOPY, BIOPSY * * The named appointment provid er may or may not be the originator of this progress note, and it is not deemed complete until electronically signed by the appointment provider. Sign off status: Pending * Provider:?Jean Carlos Martínez MD Date:? 023 Generated for Mg camejo/Fidelia/eTransmitting on:?03/31/2025 01:55 PM EDT
--- OUTSIDE RECORDS SUMMARY | 2025-03-31 14:06 | XMS_ITS ---
Author Organization [facility] Address [address] [place] [address] Care Team Providers Care Physical Therapist Technician Name Role Phone Jewel Nuñez MD Primary Care Provider Jean Carlos Meadows [phone] Freda Patel Unavailable Unavailable REASON FOR VISIT Trulicity-speak with the [facility] office Encounters Encounter Location Date Provider Diagnosis [facility] [address] [place] [address] 10/21/2023 Jean Carlos Martínez Plan Of Treatment No Information Progress Notes * TIBURCIO MARCANO ADOB: (62 yo F)Acc No.[id number]:10/21/2023 Patient:?HAYLIE MARCANO :1960???Age:62 Y???Sex:Female Address:[address] [place] [address], [address] * true * Date:? Generated for Elliotti bashir/Fidelia/eTransmitting on:?03/31/2025 01:55 PM EDT
--- OUTSIDE RECORDS SUMMARY | 2025-03-31 14:06 | XMS_ITS | Clinical Summary ---
Author Organization [facility] ity Address [address] [place] [address] Care Team Providers Care Cost Manager Name Role Phone Unavailable Primary Care [...] Procedure Name Priority Date/Time Associated Diagnosis Comments [facility] SCREENING DIGITAL Routine 09/03/2022 8:59 AM EDT Encounter for screening mammogram for malignant neoplasm of breast [facility] DEXA AXIAL SKELETON Routine 12/20/2020 3:43 PM EST Encounter for screening for osteoporosis from Last 3 Months or Most Recently Relevant to Health Maintenance Results * [facility] SCREENING DIGITAL (09/03/2022 8:59 AM EDT) Anatomical Region Laterality Modality Mammography 08/31/2022 10:1 7 AM EDT Narrative 09/03/2022 8:59 AM EDT [facility] Diagnostic Imaging Department [address] [place] [address] Patient: ??TIBURCIO ZELAYA ?/Age/Sex: 1960 - 61 - F Unit#: ??[id number] ? Location/Status: ??SPDIMAM/PRE CLI ? Mnemonic/Ordering Site: ??DIGSC/SPMAM Ordering Physician: ??JEWEL NUÑEZ MD [facility] Screening Digital - 09/02/22 - 1004 EXAM: [facility] Screening Digital EXAM DATE AND TIME: 09/02/2022 10:04 AM HISTORY: ??Annual screening mammography. ??Limited mobility of the right shoulder due to injury. COMPARISON: ??09/25/2020 through 12/31/2015. TECHNIQUE: CC and MLO views of both breasts were obtained using full field digital mammography. Bilateral digital breast tomosynthesis was performed in the MLO projection. 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 TISSUE DENSITY: a. The breasts [...] Routine screening mammogram BILATERAL in 1 year. 23706, 63787 3342F, 7025F Dictating Physician: ??AMARILIS PRESTON MD Electronically Signed by: ??AMARILIS PRESTON MD Dic Date/Time: ??09/03/22 0856 Sign date/Time: ??09/03/22 0859 Procedure Note Lisa Preston MD - 11/01/2022 [facility] Diagnostic Imaging Department [address] [place] [address] [id number] Patient: TIBURCIO ZELAYA D.O.B./Age/Sex: 1960 - 61 - F Unit#: [id number] Location/Status: SPDIMAM/PRE CLI Mnemonic/Ordering Site: [facility] Ordering Physician: JEWEL NUÑEZ MD [facility] Screening Digital - 09/02/22 - 1004 EXAM: [facility] Screening Digital EXAM DATE AND TIME: 09/02/2022 10:04 AM HISTORY: Annual screening mammography. Limited mobility of the rightshoulder due to injury. COMPARISON: 09/25/2020 through 12/31/2015. TECHNIQUE: CC and MLO views of both breasts were obtained using fullfield digital mammography. Bilateral digital breast tomosynthesis was performedin the MLO projection. Computer aided detection with the Alektrona.2-Me[employer]tyas employed. TISSUE DENSITY: a. The breasts are [...] Routine screening mammogram BILATERAL in 1 year. 89672, 08786 3342F, 7025F Dictating Physician: AMARILIS PRESTON MD Electronically Signed by: AMARILIS PRESTON MD Dic Date/Time: 09/03/22 0856 Sign date/Time: 09/03/22 0859 Jewel Nuñez MD IMG BI PROCEDURES Final Result * [facility] DEXA AXIAL SKELETON (12/20/2020 3:43 PM EST) Anatomical Region Laterality Modality Mammography 12/20/2020 2:40 PM EST Narrative 12/20/2020 3:43 PM [facility] Diagnostic Imaging Department [address] [place] [id number] Patient: ??TIBURCIO ZELAYA ?/Age/Sex: 1960 - Unit#: ??[id number] ? [facility]: [facility] ? Mnemonic/Ordering Site: ??MAMDEXAAX/SPMAM Ordering Physician: ??ENEIDA PAYAN NP [facility] Dexa Axial Skeleton - 12/20/201531 HISTORY: [...] probability of hip fracture of 0.7%. Code 69744 Dictating Physician: ??TERRIE MARIA MD Electronically Signed by: ??TERRIE MARIA MD Dic Date/Time: ??12/20/201541 Sign date/Time: ??12/20/201542 Procedure Note Terrie Maria MD - 10/31/2022 [facility] Diagnostic Imaging Department [address] [place] [address] Patient: TAVOSarbjitTIBURCIO./Age/Sex: 1960 - 60 - F Unit#: [id number] Location/Status: [facility] Mnemonic[facility] Ordering Physician: ENEIDA PAYAN NP [facility] Dexa Axial Skeleton - 12/20/201531 HISTORY: [...] density of the femurs bilaterally is 0.972 gm/ix2uqjrb is 96% of that of young normals [...] probability of hip fracture of 0.7%. Code 61083 Dictating Physician: TERRIE MARIA MD Electronically Signed by: TERRIE MARIA MD Dic Date/Time: 12/20/20 1542 Sign date/Time: 12/20/20 1543 us Eneida Payan NP IMG BI PROCEDURES Final Resul t from Last 3 Months or Most Recently Relevant to Health Maintenance
== END 2025-03-31 13:25 | disposition home or self-care (01) ==
LOC: HO.ACS 13:01
PROVIDERS: PCP Internal Medicine; Visit Provider Internal Medicine Medical Oncology
DX: Z79.01 Long term (current) use of anticoagulants (principal)

== ENCOUNTER → 2025-03-31 13:01 | Outpatient (BNVA) | payer MEDICARE, OTHER, SELFPAY | PROVIDERS: PCP Internal Medicine; Visit Provider Internal Medicine Medical Oncology | DX: I82.503 Chronic embolism and thrombosis of unspecified deep veins of lower extremity, bilateral (principal); Z79.01 Long term (current) use of anticoagulants; Z51.81 Encounter for therapeutic drug level monitoring | CPT/HCPCS: 85610; 99211 ==

== ENCOUNTER → 2025-04-03 15:00 | Outpatient (BNVA) | payer MEDICARE, OTHER, SELFPAY | PROVIDERS: PCP Internal Medicine; Visit Provider Internal Medicine Medical Oncology | DX: Z13.89 Encounter for screening for other disorder (principal) ==

== ENCOUNTER 2025-04-09 09:19 | Outpatient (AMB) | payer MEDICARE, OTHER, SELFPAY ==
--- NOTE | 2025-04-09 09:21 | MHC.OFFVIS ---
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 [place] [facility] [place]-03[place]. Pt has been on oral abx Janitorial Tech Required: No Accompanied by: Self / Same As Patient Allergies droperidol [From INAPSINE] Allergy (Severe, Verified 04/09/25 09:26) Anaphylaxis egg [EGG] Allergy (Severe, Verified 04/09/25 09:26) Nausea and Vomiting latex [LATEX] Allergy (Severe, Verified 04/09/25 09:26) HIVES metformin [METFORMIN] Allergy (Severe, Verified 04/09/25 09:) DIZZINESS AND NAUSEA penicillin V Allergy (Severe, Verified 04/09/25 09:26) RASH codeine [CODEINE] Allergy (Intermediate, Verified 04/09/25 09:26) Rash Hydrocodone Bitartrate Allergy (Intermediate, Uncoded 04/09/25 09:) Rash HPI HPI 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 She reports it began as she stepped on her grandson's toy and continued to progress. Of note she is a diabetic and quit smoking a proximally 7 years prior. She is on Coumadin for DVT.. She was subsequently seen and treated in the hospital. She was in the hospital from 03/17 and subsequently discharged on p.o. doxycycline and cephalexin. She now presents to us for vascular evaluation. [facility] Medical History Hx of drainage of abscess DVT (deep venous thrombosis) Arthritis Low back pain Diabetes Elevated cholesterol Colon polyps Mccormack esophagus Bronchial asthma HTN (hypertension) Polycythemia Current use of anticoagulant therapy Surgical History Previous back surgery Hx of colonoscopy History of hysterectomy History of delivery History of appendectomy History of cholecystectomy Family History Father Heart disease Afib Heart attack Maternal Grandmother Lung cancer Maternal Grandfather Prostate CA Paternal Grandmother Heart attack Paternal Grandfather Heart attack Social History Household Members: Spouse Housing: Apartment Do you presently have visiting nurse or other home services: No Alcohol intake: former Patient Tobacco Use Status: Former Tobacco user Tobacco use type: Cigarette Cigarette Packs Per Day: 1 Years Smoked: 25 Substance Use Type: Marijuana service: No Current occupational status: retired Review of Systems Const All systems reviewed & are unremarkable except as noted in HPI and below Reports no additional complaints ENT Reports Normal hearing present Card Denies chest pain, Denies chest pain at rest, Denies chest pain with activity and Denies pedal edema Resp Denies cough GI Denies abdominal pain Musc Denies abnormal gait, Denies muscle cramps and Denies radiating pain into limb Skin/Breast Denies skin ulcer and Denies wounds Neuro Reports Normal hearing present and Denies abnormal gait Psych Reports no additional complaints Physical Exam Vital Signs: BMI result Body Mass Index 31.0 Const General: cooperative, healthy appearing and comfortable Orientation/consciousness: oriented to person, oriented to place and oriented to time HEENT Head: Yes normal to inspection Neck Neck: Yes normal visual inspection Carotids: no bruits Chest Chest palpation & inspection: normal inspection of the chest Resp Effort & Inspection: normal respiratory effort and able to speak in complete sentences Auscultation: clear to auscultation bilaterally, no crackles, no rales, no rhonchi and no wheezes Cardio Other: Bilateral DP signals Rate: regular rate Rhythm: regular rhythm Heart sounds: S1 normal heart sound present and S2 normal heart sound present Bruits: no carotid bruits Peripheral pulses: Peripheral pulses 2+ throughout GI Inspection: Yes normal to inspection Skin Wounds: no wounds Hair: normal Neuro General: oriented to person, oriented to place and oriented to time Cranial nerves: Yes CN's II-XII intact bilaterally and Yes Normal hearing present Cognition (Neuro): normal cognition Motor exam (neuro): 5/5 motor strength present throughout Extrem Other: Right 2nd toe nonhealing ulcer on the dorsum with surrounding erythema. General: No clubbing, No cyanosis and Yes edema Psych Appearance: grossly normal Mental Status: mental status grossly normal Speech and movement: Normal speech and movement present Assessment & Plan Assessment & Plan (1) PAD (peripheral artery disease): Code(s): I73.9 - Peripheral vascular disease, unspecified Category: Medical Plan: In short patient has a nonhealing right 2nd toe ulcer. I did review the pathophysiology of peripheral vascular disease with the patient. In addition we did discuss routine conservative measures including a healthy diet and the importance of exercise and ambulation. We did discuss risk factor modification. We will try to expedite noninvasive arterial testing of the right lower extremity. Thank you for allowing us to participate in this patient's care. If there are any questions or concerns please do not hesitate to contact us. Orders: Orders US arterial duplex LE RT 1 Day I73.9 - Peripheral vascular disease, unspecified Coding Level of Care Code New Pt Level 4 (17324) Complex EM visit Add On G2211 Diagnoses PAD (peripheral artery disease) I73.9
[2025-04-09 09:22] VITALS: BMI 31.0
--- OUTSIDE RECORDS SUMMARY | 2025-04-09 09:42 | XMS_ITS ---
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 Name Role Phone Jewel Nuñez MD Primary Care Provider Jean Carlos Meadows Unavailable [phone] Freda Patel Unavailable Unavailable REASON FOR VISIT gerd,screening,hx polyps Problems Problem Type SNOMED Code ICD Code Onset Dates Problem Status W/U Status Risk Notes Problem Diverticular disease of colon (625979953) Diverticulosis of large intestine without perforation or abscess without bleeding (K57.30) Active confirmed Problem Gastroesophageal reflux disease (508793858) Gastroesophageal reflux disease (K21.9) Active confirmed Problem Mccormack esophagus (422201776) 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 Problem Gastritis (9846603) Gastritis (K29.70) Active c onfirmed Encounters Encounter Location Date Provider Diagnosis [facility] [place] Outpatient [address] [place] [phone] 10/26/2023 Jean Carlos Martínez Encounter for screen [...] * TIBURCIO MARCANO ADOB: (64 yo F)Acc No.[id number]:10/26/2023 EGD and COL/MAC Patient:?HAYLIE MARCANO Provider:?Jean Carlos Martínez MD :1960???Age:62 Y???Sex:Female D ate:10/26/2023 Address:[address] [place] [address] Pcp:Jewel uNñez MD Subjective: * Chief Complaints: * ???1. Gerd,screening,hx poly ps. * Medical History:? Objective: * Vitals:? Assessment: * Assessment: 1.?Encounter for screening c olonoscopy - Z12.11 (Primary)???2.?Colon polyps - K63.5???3.?Diverticulosis of large intestine without perforation or abscess without bleeding - K57.30???4.?Other hemorrhoids - K64.8???5. Gastroesophageal reflux disease - K21.9???6.?Mccormack esophagus - K22.70???7.?Gastritis - K29.70???8.?Hiatal hernia - K44.9??? Plan: * Treatment: * Procedure Codes:?83987 COLON OSCOPY AND BIOPSY, Modifiers: 33 , 85136 UPPER GI ENDOSCOPY, BIOPSY * * The named appointment provid er may or may not be the originator of this progress note, and it is not deemed complete until electronically signed by the appointment provider. Sign off status: Pending * Provider:?Jean Carlos Martínez MD Date:? 023 Generated for Mg camejo/Fidelia/eTransmitting on:?04/09/2025 09:42 AM EDT
== END 2025-04-09 09:47 | disposition home or self-care (01) ==
LOC: HO.HVS 09:19
PROVIDERS: PCP Internal Medicine; Visit Provider Surgery Vascular Surgery
DX: I73.9 Peripheral vascular disease, unspecified (principal)
CPT/HCPCS: 99204; G2211

== ENCOUNTER → 2025-04-09 09:19 | Outpatient (BNVA) | payer MEDICARE, OTHER, SELFPAY | PROVIDERS: PCP Internal Medicine; Visit Provider Surgery Vascular Surgery | DX: E11.51 Type 2 diabetes mellitus with diabetic peripheral angiopathy without gangrene (principal); E11.621 Type 2 diabetes mellitus with foot ulcer; L97.519 Non-pressure chronic ulcer of other part of right foot with unspecified severity; I82.503 Chronic embolism and thrombosis of unspecified deep veins of lower extremity, bilateral; Z79.01 Long term (current) use of anticoagulants; Z87.891 Personal history of nicotine dependence | CPT/HCPCS: 85610; 99202; 99211 ==

== ENCOUNTER 2025-04-09 10:22 | Outpatient (AMB) | payer MEDICARE, OTHER, SELFPAY ==
[2025-04-09 10:33] LABS: Prothrombin Time Whole Bld POC 22.4 sec (11.1-13.5); ~PT, ~INR - Anti Coag Clinic 1.9 (0.9-1.1)
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
== END 2025-04-09 10:53 | disposition home or self-care (01) ==
LOC: HO.ACS 10:22
PROVIDERS: PCP Internal Medicine; Visit Provider Internal Medicine Medical Oncology
DX: Z79.01 Long term (current) use of anticoagulants (principal)

== ENCOUNTER 2025-04-10 13:17 | Outpatient (REF) | payer MEDICARE, OTHER, SELFPAY ==
--- NOTE | ~2025-04-10 | US_ITS ---
EXAMINATION: US NONINVASIVE ASSESSMENT OF THE RIGHT LOWER EXTREMITY WITH ARTERIAL DUPLEX AND ANKLE BRACHIAL INDICES (ABIS) CLINICAL INFORMATION: Nonhealing ulcer second right toe. Evaluate for peripheral artery disease. Hyperlipidemia, smoker, hypertension, and diabetes. COMPARISON: None available. TECHNIQUE: Duplex Doppler techniques with waveform analysis and measurement of velocities in the common femoral, profunda femoris, superficial femoral, popliteal and tibial arteries were performed. In addition, ankle pulse volume recordings, ankle pressure measurements and ankle brachial indices were obtained of the right lower extremity arterial system. The study was performed only at rest. FINDINGS: NONINVASIVE ASSESSMENT OF THE ARTERIES OF BILATERAL LOWER EXTREMITIES WITH ABIs: RIGHT LEG: Ankle-brachial index: 0.90 Segmental Pressures: PT = 78 DP = 131 Ankle PVR: Biphasic waveform. LEFT LEG: Ankle-brachial index: 0.86 Segmental Pressures: PT = 83 DP = 125 Left ankle PVR: Monophasic waveforms. CHLOÉ Reference: 0.9 - 1.4 = normal - no significant arterial disease 0.7 - 0.89 = mild peripheral arterial disease 0.51 - 0.69 = moderate peripheral arterial disease 0.50 = severe peripheral arterial disease RIGHT FEMORAL RUNOFF VELOCITIES: The right common femoral artery measures 170 cm/s and triphasic. (Mild stenosis by velocity criteria) The right profunda femoral artery is 103 cm/s and is biphasic. The right proximal superficial femoral artery measures 125 cm/s and triphasic. The right mid superficial femoral artery is 83 cm/s and biphasic. The right distal right superficial femoral artery measures 142 cm/s and is triphasic. (Mild stenosis by velocity criteria) The right popliteal velocity measures 95 cm/s and is triphasic. The right posterior tibial artery velocity proximally measures 41 cm/s and is monophasic. The right mid and distal right posterior tibial artery appear occluded with collateral seen branching off the mid DIRECTOR SURGICAL. The right peroneal artery is not well visualized. The right anterior tibial artery measures 23 cm/s and is monophasic. The right dorsalis pedis artery measures 170 cm/s and is monophasic. A venous varicosity is noted incidentally in the medial proximal right calf. US/US CHLOÉ complete IMPRESSION: 1. Significant peripheral artery disease on the RIGHT mainly at the tibial level and distally. 2. The mid and distal right DIRECTOR SURGICAL appear occluded with collateralization. 3. There is evidence of likely high-grade stenosis of, or proximal to the right dorsalis pedis artery. 4. Monophasic waveforms in the right MARTHA, DPA, and proximal DIRECTOR SURGICAL. Electronically signed by: Gerald Grimaldo MD 04/10/2025 02:42 PM EDT
--- NOTE | ~2025-04-10 | US_ITS ---
EXAMINATION: US NONINVASIVE ASSESSMENT OF THE RIGHT LOWER EXTREMITY WITH ARTERIAL DUPLEX AND ANKLE BRACHIAL INDICES (ABIS) CLINICAL INFORMATION: Nonhealing ulcer second right toe. Evaluate for peripheral artery disease. Hyperlipidemia, smoker, hypertension, and diabetes. COMPARISON: None available. TECHNIQUE: Duplex Doppler techniques with waveform analysis and measurement of velocities in the common femoral, profunda femoris, superficial femoral, popliteal and tibial arteries were performed. In addition, ankle pulse volume recordings, ankle pressure measurements and ankle brachial indices were obtained of the right lower extremity arterial system. The study was performed only at rest. FINDINGS: NONINVASIVE ASSESSMENT OF THE ARTERIES OF BILATERAL LOWER EXTREMITIES WITH ABIs: RIGHT LEG: Ankle-brachial index: 0.90 Segmental Pressures: PT = 78 DP = 131 Ankle PVR: Biphasic waveform. LEFT LEG: Ankle-brachial index: 0.86 Segmental Pressures: PT = 83 DP = 125 Left ankle PVR: Monophasic waveforms. CHLOÉ Reference: 0.9 - 1.4 = normal - no significant arterial disease 0.7 - 0.89 = mild peripheral arterial disease 0.51 - 0.69 = moderate peripheral arterial disease 0.50 = severe peripheral arterial disease RIGHT FEMORAL RUNOFF VELOCITIES: The right common femoral artery measures 170 cm/s and triphasic. (Mild stenosis by velocity criteria) The right profunda femoral artery is 103 cm/s and is biphasic. The right proximal superficial femoral artery measures 125 cm/s and triphasic. The right mid superficial femoral artery is 83 cm/s and biphasic. The right distal right superficial femoral artery measures 142 cm/s and is triphasic. (Mild stenosis by velocity criteria) The right popliteal velocity measures 95 cm/s and is triphasic. The right posterior tibial artery velocity proximally measures 41 cm/s and is monophasic. The right mid and distal right posterior tibial artery appear occluded with collateral seen branching off the mid CAR REPAIRER APPRENTICE. The right peroneal artery is not well visualized. The right anterior tibial artery measures 23 cm/s and is monophasic. The right dorsalis pedis artery measures 170 cm/s and is monophasic. A venous varicosity is noted incidentally in the medial proximal right calf. US/US arterial duplex LE RT IMPRESSION: 1. Significant peripheral artery disease on the RIGHT mainly at the tibial level and distally. 2. The mid and distal right CAR REPAIRER APPRENTICE appear occluded with collateralization. 3. There is evidence of likely high-grade stenosis of, or proximal to the right dorsalis pedis artery. 4. Monophasic waveforms in the right MARTHA, DPA, and proximal CAR REPAIRER APPRENTICE. Electronically signed by: Gerald Grimaldo MD 04/10/2025 02:42 PM EDT RP
--- OUTSIDE RECORDS SUMMARY | 2025-04-10 13:26 | XMS_ITS ---
Author Organization [facility] Address [address] [place] [address] Care Team Providers Care Clinical Support Specialist Name Role Phone Jewel Nuñez MD Primary Care Provider Jean Carlos Meadows Unavailable [phone] Freda Patel Unavailable Unavailable REASON FOR VISIT gerd,screening,hx polyps Problems Problem Type SNOMED Code ICD Code Onset Dates Problem Status W/U Status Risk Notes Problem Diverticular disease of colon (406792084) Diverticulosis of large intestine without perforation or abscess without bleeding (K57.30) Active confirmed Problem Gastroesophageal reflux disease (109439019) Gastroesophageal reflux disease (K21.9) Active confirmed Problem Mccormack esophagus (487661270) 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 Plan: * Treatment: * Procedure Codes:?46949 COLON OSCOPY AND BIOPSY, Modifiers: 33 , 58824 UPPER GI ENDOSCOPY, BIOPSY * * The named appointment provid er may or may not be the originator of this progress note, and it is not deemed complete until electronically signed by the appointment provider. Sign off status: Pending * Provider:?Jean Carlos Martínez MD Date:? 023 Generated for Mg camejo/Fidelia/eTransmitting on:?04/10/2025 01:25 PM EDT
== END 2025-04-10 13:18 | disposition home or self-care (01) ==
LOC: HO.US 13:17
PROVIDERS: PCP Internal Medicine; Visit Provider Surgery Vascular Surgery
DX: I73.9 Peripheral vascular disease, unspecified (principal)
CPT/HCPCS: 93923; 93926

== ENCOUNTER → 2025-04-10 13:19 | Outpatient (BNV) | payer MEDICARE, OTHER, SELFPAY | PROVIDERS: PCP Internal Medicine; Visit Provider Radiology Diagnostic Radiology | DX: I73.9 Peripheral vascular disease, unspecified (principal) | CPT/HCPCS: 93923; 93926 ==

== ENCOUNTER → 2025-04-21 08:47 | Outpatient (BNVA) | payer MEDICARE, OTHER, SELFPAY | PROVIDERS: PCP Internal Medicine; Visit Provider Internal Medicine Medical Oncology ==

== ENCOUNTER 2025-04-23 14:41 | Outpatient (AMB) | payer MEDICARE, OTHER, SELFPAY ==
[2025-04-23 15:00] LABS: ~PT, ~INR - Anti Coag Clinic 2.3 (0.9-1.1)
--- NOTE | 2025-04-23 15:05 | MHC.OFFVISCO ---
Intake Intake Visit Reasons: Anticoagulation Allergies droperidol [From INAPSINE] Allergy (Severe, Verified 04/23/25 14:52) Anaphylaxis egg [EGG] Allergy (Severe, Verified 04/23/25 14:52) Nausea and Vomiting latex [LATEX] Allergy (Severe, Verified 04/23/25 14:52) HIVES metformin [METFORMIN] Allergy (Severe, Verified 04/23/25 14:52) DIZZINESS AND NAUSEA penicillin V Allergy (Severe, Verified 04/23/25 14:52) RASH codeine [CODEINE] Allergy (Intermediate, Verified 04/23/25 14:52) Rash Hydrocodone Bitartrate Allergy (Intermediate, Uncoded 04/23/25 14:52) Rash Medication List - Last Reconciled 04/23/25 by Zaria Leger RN atorvastatin 40 mg PO BEDTIME blood sugar diagnostic As directed celecoxib 200 caps PO BID cholecalciferol (vitamin D3) (Vitamin D3) 50 mcg PO DAILY doxycycline monohydrate 100 mg PO BID empagliflozin 25 mg PO DAILY fluticasone propionate 50 mcg/actuation sprays intranasal gauze bandage As directed hydrocolloid dressing (Durafiber Dressing) As directed lisinopril 5 mg PO BEDTIME loratadine (Claritin) 10 mg PO DAILY omeprazole 20 mg PO DAILY@0630 tirzepatide (Mounjaro) 5 mg subcut SA warfarin 7.5 mg See Protocol PO TUTHSA@1800 warfarin 5 mg See Protocol PO SuMoWeFr@1800 Nursing Note Right foot 2 nd toe wound has been being treated now for 5 weeks now in process of completing antibiotics- has referral ti infection diseases INR: 2.3 in therapeutic range Medications and supplements reviewed Still on on antibiotic Doxycycline through Sunday - INR has been running low Denies any signs and symptoms of bleeding or bruising or clotting. Bleeding, bruising, clotting discussed Nutritional guidance given - resume greens Sunday04/27/2025 - expecting delayed on set of antbx raising the INR Dose: keep 7.5mg x 3 days /5mg x 5 days F/U INR: 04/29/2025 Patient verbalizes understanding of instructions given Anti-Coag Initial Assessment Social Hx Patient Tobacco Use Status: Former Tobacco user Tobacco use type: Cigarette Smoking packs per day: 1 alcohol intake: former Alcohol intake frequency: does not drink Coding Level of Care Code Est Patient Level 1 Diagnoses Current use of anticoagulant therapy Z79.01 Results AMB INR Fingerstick AMB INR Fingerstick 2.3 Last Edit by Zaria Leger RN on 04/23/25 14:58 manual entry Assessment & Plan Assessment & Plan (1) Current use of anticoagulant therapy: Code(s): 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
--- OUTSIDE RECORDS SUMMARY | 2025-04-23 17:14 | XMS_ITS ---
Author Organization [facility] Address [address] [place] [address] Care Team Providers Care Patient'S Librarian Name Role Phone Jewel Nuñez MD Primary Care Provider Jean Carlos Meadows Unavailable [phone] Freda Patel Unavailable Unavailable REASON FOR VISIT gerd,screening,hx polyps Problems Problem Type SNOMED Code ICD Code Onset Dates Problem Status W/U Status Risk Notes Problem Diverticular disease of colon (953445917) Diverticulosis of large intestine without perforation or abscess without bleeding (K57.30) Active confirmed Problem Gastroesophageal reflux disease (631595057) Gastroesophageal reflux disease (K21.9) Active confirmed Problem Mccormack esophagus (094738946) 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 Outpatient [address] [place] [id number] 10/26/2023 Jean Carlos Martínez Encounter for screen [...] * TIBURCIO MARCANO ADOB: (64 yo F)Acc No.[id number]:10/26/2023 EGD and COL/MAC Patient:?HAYLIE MARCANO Provider:?Jean Carlos Martínez MD :1960???Age:62 Y???Sex:Female D ate:10/26/2023 Address:[address] [place] [address] Pcp:Jewel Nuñez MD Subjective: * Chief Complaints: [...] - K44.9??? Plan: * Treatment: * Procedure Codes:?97459 COLON OSCOPY AND BIOPSY, Modifiers: 33 , 97312 UPPER GI ENDOSCOPY, BIOPSY * * The named appointment provid er may or may not be the originator of this progress note, and it is not deemed complete until electronically signed by the appointment provider. Sign off status: Pending * Provider:?Jean Carlos Martínez MD Date:? 023 Generated for Mg camejo/Fidelia/eTransmitting on:?04/23/2025 05:14 PM EDT
== END 2025-04-23 15:11 | disposition home or self-care (01) ==
LOC: HO.ACS 14:41
PROVIDERS: PCP Internal Medicine; Visit Provider Internal Medicine Medical Oncology
DX: Z79.01 Long term (current) use of anticoagulants (principal)

== ENCOUNTER → 2025-04-23 14:41 | Outpatient (BNVA) | payer MEDICARE, OTHER, SELFPAY | PROVIDERS: PCP Internal Medicine; Visit Provider Internal Medicine Medical Oncology | DX: E11.51 Type 2 diabetes mellitus with diabetic peripheral angiopathy without gangrene (principal); E11.621 Type 2 diabetes mellitus with foot ulcer; L97.519 Non-pressure chronic ulcer of other part of right foot with unspecified severity; E11.69 Type 2 diabetes mellitus with other specified complication; M86.9 Osteomyelitis, unspecified; Z79.2 Long term (current) use of antibiotics; Z86.718 Personal history of other venous thrombosis and embolism; Z79.01 Long term (current) use of anticoagulants; Z51.81 Encounter for therapeutic drug level monitoring | CPT/HCPCS: 85610; 99211; 99212 ==

== ENCOUNTER 2025-04-23 15:17 | Outpatient (AMB) | payer MEDICARE, OTHER, SELFPAY ==
[2025-04-23 15:20] VITALS: BMI 31.0
--- NOTE | 2025-04-23 15:20 | MHC.OFFVIS ---
Vital Signs 04/23/25 15:20 Height 5 ft 9.5 in Weight 213 lb BMI 31.0 Intake Visit Reasons: follow up s/p Arterial US 04/10/25 Intake Note: follow up arterial US 04/10/25 for right 2nd toe wound w/ discoloration Allergies droperidol [From INAPSINE] Allergy (Severe, Verified 04/23/25 15:23) Anaphylaxis egg [EGG] Allergy (Severe, Verified 04/23/25 15:23) Nausea and Vomiting latex [LATEX] Allergy (Severe, Verified 04/23/25 15:23) HIVES metformin [METFORMIN] Allergy (Severe, Verified 04/23/25 15:23) DIZZINESS AND NAUSEA penicillin V Allergy (Severe, Verified 04/23/25 15:23) RASH codeine [CODEINE] Allergy (Intermediate, Verified 04/23/25 15:23) Rash Hydrocodone Bitartrate Allergy (Intermediate, Uncoded 04/23/25 15:23) Rash HPI HPI follow up s/p Arterial US 04/10/25: Details: Very pleasant 64-year-old female presents for evaluation regarding peripheral vascular disease. She has a longstanding history of diabetes and has a nonhealing right 2nd toe ulcer. It began as she stepped on her grandson's toy. It continued to progress. Of note she has been discovered to have osteomyelitis has completed 5 weeks of treatment is in the process of completing her last week. In general it appears to be doing well but still not healed. She now presents for follow-up with noninvasive testing. [facility] Medical History Hx of drainage of abscess DVT (deep venous thrombosis) Arthritis Low back pain Diabetes Elevated cholesterol Colon polyps Mccormack esophagus Bronchial asthma HTN (hypertension) Polycythemia Current use of anticoagulant therapy Surgical History Previous back surgery Hx of colonoscopy History of hysterectomy History of delivery History of appendectomy History of cholecystectomy Family History Father Heart disease Afib Heart attack Maternal Grandmother Lung cancer Maternal Grandfather Prostate CA Paternal Grandmother Heart attack Paternal Grandfather Heart attack Social History Household Members: Spouse Housing: Apartment Do you presently have visiting nurse or other home services: No Alcohol intake: former Patient Tobacco Use Status: Former Tobacco user Tobacco use type: Cigarette Cigarette Packs Per Day: 1 Years Smoked: 25 Substance Use Type: Marijuana service: No Current occupational status: retired Review of Systems Const All systems reviewed & are unremarkable except as noted in HPI and below Reports no additional complaints ENT Reports Normal hearing present Card Denies chest pain, Denies chest pain at rest, Denies chest pain with activity and Denies pedal edema Resp Denies cough GI Denies abdominal pain Musc Denies abnormal gait, Denies muscle cramps and Denies radiating pain into limb Skin/Breast Denies skin ulcer and Denies wounds Neuro Reports Normal hearing present and Denies abnormal gait Psych Reports no additional complaints Physical Exam Vital Signs: BMI result Body Mass Index 31.0 Const General: cooperative, healthy appearing and comfortable Orientation/consciousness: oriented to person, oriented to place and oriented to time HEENT Head: Yes normal to inspection Neck Neck: Yes normal visual inspection Carotids: no bruits Chest Chest palpation & inspection: normal inspection of the chest Resp Effort & Inspection: normal respiratory effort and able to speak in complete sentences Auscultation: clear to auscultation bilaterally, no crackles, no rales, no rhonchi and no wheezes Cardio Other: Bilateral DP signals Rate: regular rate Rhythm: regular rhythm Heart sounds: S1 normal heart sound present and S2 normal heart sound present Bruits: no carotid bruits Peripheral pulses: Peripheral pulses 2+ throughout GI Inspection: Yes normal to inspection Skin Wounds: no wounds Hair: normal Neuro General: oriented to person, oriented to place and oriented to time Cranial nerves: Yes CN's II-XII intact bilaterally and Yes Normal hearing present Cognition (Neuro): normal cognition Motor exam (neuro): 5/5 motor strength present throughout Extrem Other: Right foot 2nd toe nonhealing General: No clubbing, No cyanosis and No edema Psych Appearance: grossly normal Mental Status: mental status grossly normal Speech and movement: Normal speech and movement present Results AMB INR Fingerstick AMB INR Fingerstick 2.3 Last Edit by Zaria Leger RN on 04/23/25 14:58 manual entry Results Reviewed Results Reviewed: Noninvasive arterial testing demonstrates CHLOÉ on the right of 0.9 and on the left of 0.86. On direct ultrasound on the right side it appears that she has tibial disease. Written report and images were reviewed. Assessment & Plan Assessment & Plan (1) PAD (peripheral artery disease): Code(s): I73.9 - Peripheral vascular disease, unspecified Category: Medical Plan: Patient notes leg pain when walking distances. I have discussed the pathophysiology of peripheral vascular disease with the patient. I have also discussed risk factor modification. I have reviewed the patient's arterial testing which reveals right leg tibial disease. the patient would benefit from a right leg endovascular peripheral angiogram with possible angioplasty, stent, and/or atherectomy. This has been discussed in detail with the patient along with risks, benefits, and complications. This includes but is not limited to bleeding, infection, heart attack, need for emergent surgical repair, limb ischemia, blood vessel damage, bleeding, puncture, kidney injury, bruising, allergic reaction, and skin reaction. The patient demonstrates a clear understanding. We will schedule for the next appropriate time. Thank you for allowing us to assist in this patient's care. Coding Level of Care Code Est Pt Level 4 (53419) Complex EM visit Add On G2211 Diagnoses PAD (peripheral artery disease) I73.9
== END 2025-04-23 15:48 | disposition home or self-care (01) ==
LOC: HO.HVS 15:17
PROVIDERS: PCP Internal Medicine; Visit Provider Surgery Vascular Surgery
DX: I73.9 Peripheral vascular disease, unspecified (principal)
CPT/HCPCS: 99214; G2211

== ENCOUNTER → 2025-04-24 16:52 | Outpatient (BNVA) | payer MEDICARE, OTHER, SELFPAY | PROVIDERS: PCP Internal Medicine; Visit Provider Internal Medicine Medical Oncology ==

== ENCOUNTER 2025-04-29 06:10 | Day surgery (SDC) | payer MEDICARE, OTHER, SELFPAY ==
--- OUTSIDE RECORDS SUMMARY | 2025-04-24 11:08 | XMS_ITS ---
Author Organization [facility] Address [address] [place] [address] Care Team Providers Care Button Puncher Name Role Phone Jewel Nuñez MD Primary Care Provider Jean Carlos Meadows Unavailable [phone] Freda Patel Unavailable Unavailable REASON FOR VISIT gerd,screening,hx polyps Problems Problem Type SNOMED Code ICD Code Onset Dates Problem Status W/U Status Risk Notes Problem Diverticular disease of colon (152482237) Diverticulosis of large intestine without perforation or abscess without bleeding (K57.30) Active confirmed Problem Gastroesophageal reflux disease (518205261) Gastroesophageal reflux disease (K21.9) Active confirmed Problem Mccormack esophagus (344586516) 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 Plan: * Treatment: * Procedure Codes:?13584 COLON OSCOPY AND BIOPSY, Modifiers: 33 , 35668 UPPER GI ENDOSCOPY, BIOPSY * * The named appointment provid er may or may not be the originator of this progress note, and it is not deemed complete until electronically signed by the appointment provider. Sign off status: Pending * Provider:?Jean Carlos Martínez MD Date:? 023 Generated for Mg camejo/Fidelia/eTransmitting on:?04/24/2025 11:08 AM EDT
[2025-04-29] VITALS (17 sets, daily range): BP systolic 127–185; BP diastolic 62–91; PULSE 77–92; RESP 14–18; TEMP 36.3–36.6; O2SAT 96–100; BMI 33.1
[2025-04-29 06:53] LABS: MANUAL DIFF FLAG NO
[2025-04-29] MEDS: 0.9 % Sodium Chloride 1,000 ML 100 ML IVCONT (06:55)
[2025-04-29 07:00] LABS: Basophils Percent Auto 0.4 % (0-2); Eosinophils Absolute Auto 0.2 X10*3/uL (0.0-0.4); Eosinophils Percent Auto 1.8 % (0-4); Hemoglobin 16.4 g/dl (12.0-16.0); Imm Gran Abs Auto 0.03 X10*3/uL (0.00-0.03); Imm Gran Pct Auto 0.3 % (0.0-0.4); Lymphocytes Absolute Auto 1.7 X10*3/uL (1.2-4.9); Lymphocytes Percent Auto 15.2 % (20-40); Mean Corpuscular HGB Conc 34.2 g/dl (31.0-35.0); Mean Corpuscular Hemoglobin 29.8 pg (27.0-33.0); Mean Corpuscular Volume 87.3 fL (80.0-98.0); Mean Platelet Volume 9.8 fL (9.4-12.3); Monocytes Absolute Auto 0.8 X10*3/uL (0.1-1.2); Monocytes Percent Auto 6.9 % (2-11); Neutrophils Absolute Auto 8.4 x10*3/uL (2.0-8.3); Neutrophils Percent Auto 75.4 % (45-73); Platelet Count 223 X10*3/uL (160-400); White Blood Count 11.1 X10*3/uL (4.8-10.8)
[2025-04-29 07:07] LABS: Blood Urea Nitrogen 16 mg/dL (9-16); Creatinine Clr Calc Pharmacy 109.7; Estimated Glomerular Filt Rate > 60
[2025-04-29] MEDS: fentaNYL citrate/PF 100 MCG/2 ML VIAL 25 MCG IVPUSH (08:06)
[2025-04-29] MEDS: Midazolam HCl 2 MG/2 ML VIAL 0.5 MG IVPUSH (08:06)
--- NOTE | 2025-04-29 08:46 | W.PM.OPN ---
Operative Note Operative Note Date of Service: 04/29/25 Narrative: Angiogram report from [facility] Preoperative diagnosis: Atherosclerosis of right lower extremity with nonhealing ulcer Postoperative diagnosis: Same Procedure: 1. Ultrasound-guided left common femoral access 2. Aortogram with bilateral lower extremity runoff Surgeon:Hermann Adams M.D., FACS, RPVI Cement Mason Helper:None Anesthesia: Local with moderate conscious sedation. Total intraservice moderate sedation time was 29 minutes. I monitored the patient's level of consciousness and physiologic status continuously throughout the procedure. Specimens:none Drains:none Estimated blood loss: Less than 10 ml Radiation Dose: 122.9 mGy Implant: None Indications: 64-year-old diabetic female with nonhealing right 2nd toe ulcer now presents for endovascular intervention. On noninvasive testing there was concern of tibial disease. The patient has signed the informed consent after reviewing risks, complications, benefits, and alternatives previously discussed with the patient. The patient was given the opportunity to ask any additional questions or voice any concerns. All questions were answered to the patient's satisfaction. Procedure in detail: Patient was brought to the angiography suite prior to which a time-out was called for patient identification and site verification. Bilateral groins were prepped and draped in the standard surgical fashion. Under ultrasound guidance left common femoral was punctured with micro puncture needle and wire. Subsequently a precision 5 Cook Islander sheath was then placed. Bentson wire was advanced to the level of the aorta. 5 Cook Islander Flush catheter was brought up and parked at the level of the renal arteries. Aortogram was then undertaken. Catheter was brought down to the level of the iliac bifurcation. Iliacs and runoff was performed through the flush catheter that was parked at the bifurcation and a power injection was performed to visualize bilateral runoff vessels. Subsequently the catheter was then brought in up and over to the right side SFA. We exchanged out for an 035 glidewire and brought this all the way down into the right popliteal. Navicross catheter was placed there so we can get close up images of the tibial vessels. Multiple orthogonal views were undertaken. No intervention was indicated. Catheter wire sheath were removed. A 5 Cook Islander CELT closure device was placed. Patient tolerated the procedure well. Returned to recovery with stable vitals. Interpretation of films: 1. Ultrasound demonstrates appropriate femoral access site. Vessel was patent with minimal stenosis. Needle entry was visualized. Image of ultrasound was saved. 2. Aortogram demonstrates appropriate caliber aorta. Minimal disease. Appropriate take-off of the renals. 3. Iliac images demonstrate no significant disease 4. Right Leg Common femoral artery: No significant disease Profundus Femoris: No significant disease Superficial femoral artery: No significant disease, mild stenosis at Ulises's canal Popliteal artery (p1,p2,p3): No significant disease Anterior tibial artery: Good flow dominant runoff all the way to the foot Peroneal artery: Good flow all the way down to the ankle Posterior tibial artery: Occludes at the proximal half. There is a hint of reconstitution towards the ankle Dorsalis pedis/plantar arch: Incomplete but does have presence of an arch. 5. Left Leg Common femoral artery: No significant disease Profundus Femoris: No significant disease Superficial femoral artery: No significant disease, mild stenosis at Ulises's canal Popliteal artery (p1,p2,p3): No significant disease Anterior tibial artery: No significant disease Peroneal artery: No significant this Posterior tibial artery: No significant disease Dorsalis pedis/plantar arch: Unable to visualize Conclusion: 1. Successful diagnostic angiogram no intervention indicated. 2. Anticoagulation status: Continue current Coumadin regimen This note is constructed using voice recognition software. While every effort has been made to ensure accuracy, production scheduler errors may have been included. Thank you for allowing me to participate in the care of your patient. Yours sincerely, Hermann Adams MD, FACS, R.P.V.I.
== END 2025-04-29 11:05 | disposition home or self-care (01) ==
PROVIDERS: PCP Internal Medicine; Visit Provider Surgery Vascular Surgery
DX: E11.51 Type 2 diabetes mellitus with diabetic peripheral angiopathy without gangrene (principal); L97.519 Non-pressure chronic ulcer of other part of right foot with unspecified severity; I70.235 Atherosclerosis of native arteries of right leg with ulceration of other part of foot; I10 Essential (primary) hypertension; E78.00 Pure hypercholesterolemia, unspecified; I82.409 Acute embolism and thrombosis of unspecified deep veins of unspecified lower extremity; K22.70 Barrett's esophagus without dysplasia; Z79.01 Long term (current) use of anticoagulants; Z79.84 Long term (current) use of oral hypoglycemic drugs; Z79.85 Long-term (current) use of injectable non-insulin antidiabetic drugs; Z88.0 Allergy status to penicillin; Z88.5 Allergy status to narcotic agent; Z88.8 Allergy status to other drugs, medicaments and biological substances; Z91.012 Allergy to eggs; Z91.040 Latex allergy status; Z98.890 Other specified postprocedural states; Z87.891 Personal history of nicotine dependence
CPT/HCPCS: 36247; 36415; 75630; 76937; 82565; 84520; 85025; 99152; 99153; C1769; C1887; C1894; J1644; J2250; J3010; Q9967

== ENCOUNTER → 2025-04-29 06:10 | Outpatient (BNV) | payer MEDICARE, OTHER, SELFPAY | PROVIDERS: PCP Internal Medicine; Visit Provider Surgery Vascular Surgery | DX: I70.239 Atherosclerosis of native arteries of right leg with ulceration of unspecified site (principal) | CPT/HCPCS: 36247; 75625; 75710; 76937; 99152 ==

== ENCOUNTER 2025-05-05 13:03 | Outpatient (AMB) | payer MEDICARE, OTHER, SELFPAY ==
[2025-05-05 13:12] LABS: Prothrombin Time Whole Bld POC 17.4 sec (11.1-13.5); ~PT, ~INR - Anti Coag Clinic 1.4 (0.9-1.1)
--- NOTE | 2025-05-05 13:57 | MHC.OFFVISCO ---
Intake Intake Visit Reasons: Anticoagulation Allergies droperidol (From INAPSINE) Allergy (Severe, Verified 05/05/25 13:05) Anaphylaxis egg (EGG) Allergy (Severe, Verified 05/05/25 13:05) Nausea and Vomiting latex (LATEX) Allergy (Severe, Verified 05/05/25 13:05) HIVES metformin (METFORMIN) Allergy (Severe, Verified 05/05/25 13:05) DIZZINESS AND NAUSEA penicillin V Allergy (Severe, Verified 05/05/25 13:05) RASH codeine (CODEINE) Allergy (Intermediate, Verified 05/05/25 13:05) Rash Hydrocodone Bitartrate Allergy (Intermediate, Uncoded 05/05/25 13:05) Rash Medication List - Last Reconciled 05/05/25 by Maria Isabel Garza RN atorvastatin 40 mg PO BEDTIME blood sugar diagnostic As directed celecoxib 200 caps PO BID cholecalciferol (vitamin D3) (Vitamin D3) 50 mcg PO DAILY empagliflozin 25 mg PO DAILY fluticasone propionate 50 mcg/actuation sprays intranasal gauze bandage As directed hydrocolloid dressing (Durafiber Dressing) As directed lisinopril 5 mg PO BEDTIME loratadine (Claritin) 10 mg PO DAILY omeprazole 20 mg PO DAILY@0630 tirzepatide (Mounjaro) 5 mg subcut SA warfarin 7.5 mg See Protocol PO TUTHSA@1800 warfarin 5 mg See Protocol PO SuMoWeFr@1800 Nursing Note INR: 1.4?out of therapeutic range of 2-3 Pt had a 5 day hold of warfarin for a procedure, angiogram on 04/29/25 and restarted the med on that day. Has a healing wound on right toe. Medications and supplements reviewed Patient status: feels better Medications or supplements: no changes Diet: no changes Denies any signs and symptoms of bleeding or clotting or unusual bruising Bleeding, bruising, clotting discussed Nutritional guidance given: to avoid greens X 2 days Dose: 10mg today (usual 7.5mg) and 7.5mg tomorrow (usual 5mg) F/U INR Date: 05/07/25?? Patient verbalizing understanding of instructions given. T/C to Dr Marrero's office. Message left for her with critical INR, dosing plan and next retest date. 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
--- OUTSIDE RECORDS SUMMARY | 2025-05-05 14:46 | XMS_ITS | Clinical Summary ---
Author Organization [facility] ity Address [address] [place] [address] Care Team Providers Care Snack Bar Cook Name Role Phone Unavailable Primary Care Provider [...] Procedure Name Priority Date/Time Associated Diagnosis Comments [facility] SCREENING DIGITAL Routine 09/03/2022 8:59 AM EDT Encounter for screening mammogram for malignant neoplasm of breast [facility] DEXA AXIAL SKELETON Routine 12/20/2020 3:43 PM EST Encounter for screening for osteoporosis from Last 3 Months or Most Recently Relevant to Health Maintenance Results * [facility] SCREENING DIGITAL (09/03/2022 8:59 AM EDT) Anatomical Region Laterality Modality Mammography 08/31/2022 10:1 7 AM EDT Narrative 09/03/2022 8:59 AM EDT [facility] Diagnostic Imaging Department [address] [place] [address] Patient: TAVOSarbjitTIBURCIO /Age/Sex: 1960 - 61 - F Unit#: [id number] Location/Status: SPDIMAM/PRE CLI Mnemonic/Ordering Site: [facility] Ordering Physician: JEWEL NUÑEZ MD [facility] Screening Digital - 09/02/22 - 1004 EXAM: [facility] Screening Digital EXAM DATE AND TIME: 09/02/2022 10:04 AM HISTORY: Annual screening mammography. Limited mobility of the right shoulder due to injury. COMPARISON: 09/25/2020 through 12/31/2015. TECHNIQUE: CC and MLO views of both breasts were obtained using full field digital mammography. Bilateral digital breast tomosynthesis was performed in the MLO projection. 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 TISSUE DENSITY: a. The breasts are almost entirely fatty. FINDINGS: No suspicious masses, grouped microcalcifications, or areas of architectural distortion are seen. Stable benign calcifications are noted. The skin and vascularity are unremarkable. IMPRESSION: Stable mammographic appearance of the breasts. No evidence of malignancy is seen. A negative mammogram in the presence of a clinically suspicious palpable abnormality does not preclude the possibility of malignancy or alter the indications for biopsy. BI-RADS: Category 2: Benign RECOMMENDATION(S): 1: Routine screening mammogram BILATERAL in 1 year. 82518, 48366 3342F, 7025F Dictating Physician: AMARILIS PRESTON MD Electronically Signed by: AMARILIS PRESTON MD Dic Date/Time: 09/03/2256 Sign date/Time: 09/03/2259 Procedure Note Lisa Preston MD - 11/01/2022 [facility] Diagnostic Imaging Department [address] [place] [address] Patient: TAVOSarbjitTIBURCIO/Age/Sex: 1960 - 61 - F Unit#: [id number] Location/Status: SPDIMAM/PRE CLI Mnemonic/Ordering Site: [facility] Ordering Physician: JEWEL NUÑEZ MD [facility] Screening Digital - 09/02/22 - 1004 EXAM: [facility] Screening Digital EXAM DATE AND TIME: 09/02/2022 10:04 AM HISTORY: Annual screening mammography. Limited mobility of the rightshoulder due to injury. COMPARISON: 09/25/2020 through 12/31/2015. TECHNIQUE: CC and MLO views of both breasts were obtained using fullfield digital mammography. Bilateral digital breast tomosynthesis was performedin the MLO projection. 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 TISSUE DENSITY: a. The breasts are [...] Routine screening mammogram BILATERAL in 1 year. 36348, 83454 3342F, 7025F Dictating Physician: AMARILIS PRESTON MD Electronically Signed by: AMARILIS PRESTON MD Dic Date/Time: 09/03/2256 Sign date/Time: 09/03/2259 Jewel Nuñez MD IMG BI PROCEDURES Final Result * [facility] DEXA AXIAL SKELETON (12/20/2020 3:43 PM EST) Anatomical Region Laterality Modality Mammography 12/20/2020 2:40 PM EST Narrative 12/20/2020 3:43 PM EST [facility] Diagnostic Imaging Department [address] [place] [address] Patient: TIBURCIO ZELAYA Malorie Staton/Age/Sex: 1960 - 60 - F Unit#: [id number] Location/Status: SPDIMA/REG CLI Mnemonic/Ordering Site: [facility] Ordering Physician: ENEIDA PAYAN VACUUM TRUCK DRIVER Rangel Dexa Axial Skeleton - 12/20/20 - 1532 HISTORY: The patient is a 60-year-old postmenopausal female with clinical concern for metabolic bone disease. FINDINGS: Dual [...] 99% of that of age matched controls. This yields a T-score of -0.3 and a Z-score of -0.1 and there is therefore no evidence of osteoporosis or osteopenia here. However, the T-score of the right femoral neck is -1.5 which is diagnostic of osteopenia. IMPRESSION: 1. Osteopenia. 2. FRAX analysis yields a 10-year probability of major osteoporotic fracture of 7.6% and a 10-year probability of hip fracture of 0.7%. Code 31743 Dictating Physician: TERRIE MARIA MD Electronically Signed by: TERRIE MARIA MD Dic Date/Time: 12/20/201541 Sign date/Time: 02/08/21 1543 Procedure Note Terrie Maria MD - 10/31/2022 [facility] Diagnostic Imaging Department [address] [place] [id number] Patient: KRYSTIBURCIOJOANNE Siddiqui./Age/Sex: 1960 - 60 - F Unit#: [id number] Location/Status: [facility] CLI Mnemonic[facility] Ordering Physician: ENEIDA PAYAN VACUUM TRUCK DRIVER Rangel Dexa Axial Skeleton - 12/20/201531 HISTORY: The [...] density of the femurs bilaterally is 0.972 gm/am7evkgu is 96% of that of young normals [...] probability of hip fracture of 0.7%. Code 96761 Dictating Physician: TERRIE MARIA MD Electronically Signed by: TERRIE MARIA MD Dic Date/Time: 12/20/20 1542 Sign date/Time: 12/20/20 1543 Eneida Payan NP IM BI PROCEDURES Final Resul t from Last 3 Months or Most Recently Relevant to Health Maintenance
== END 2025-05-05 14:26 | disposition home or self-care (01) ==
LOC: HO.ACS 13:03
PROVIDERS: PCP Internal Medicine; Visit Provider Internal Medicine Medical Oncology
DX: Z79.01 Long term (current) use of anticoagulants (principal)

== ENCOUNTER → 2025-05-05 13:03 | Outpatient (BNVA) | payer MEDICARE, OTHER, SELFPAY | PROVIDERS: PCP Internal Medicine; Visit Provider Internal Medicine Medical Oncology | DX: I82.503 Chronic embolism and thrombosis of unspecified deep veins of lower extremity, bilateral (principal); Z79.01 Long term (current) use of anticoagulants; Z51.81 Encounter for therapeutic drug level monitoring | CPT/HCPCS: 85610; 99212 ==

== ENCOUNTER 2025-05-07 10:53 | Outpatient (AMB) | payer MEDICARE, OTHER, SELFPAY ==
[2025-05-07 11:07] LABS: ~PT, ~INR - Anti Coag Clinic 2.2 (0.9-1.1)
--- NOTE | 2025-05-07 11:15 | MHC.OFFVISCO ---
Intake Intake Visit Reasons: Anticoagulation Allergies droperidol (From INAPSINE) Allergy (Severe, Verified 05/07/25 11:02) Anaphylaxis egg (EGG) Allergy (Severe, Verified 05/07/25 11:02) Nausea and Vomiting latex (LATEX) Allergy (Severe, Verified 05/07/25 11:02) HIVES metformin (METFORMIN) Allergy (Severe, Verified 05/07/25 11:02) DIZZINESS AND NAUSEA penicillin V Allergy (Severe, Verified 05/07/25 11:02) RASH codeine (CODEINE) Allergy (Intermediate, Verified 05/07/25 11:02) Rash Hydrocodone Bitartrate Allergy (Intermediate, Uncoded 05/07/25 11:02) Rash Medication List - Last Reconciled 05/07/25 by Maria Isabel Garza RN atorvastatin 40 mg PO BEDTIME blood sugar diagnostic As directed celecoxib 200 caps PO BID cholecalciferol (vitamin D3) (Vitamin D3) 50 mcg PO DAILY empagliflozin 25 mg PO DAILY fluticasone propionate 50 mcg/actuation sprays intranasal gauze bandage As directed hydrocolloid dressing (Durafiber Dressing) As directed lisinopril 5 mg PO BEDTIME loratadine (Claritin) 10 mg PO DAILY omeprazole 20 mg PO DAILY@0630 tirzepatide (Mounjaro) 5 mg subcut SA warfarin 7.5 mg See Protocol PO TUTHSA@1800 warfarin 5 mg See Protocol PO SuMoWeFr@1800 Nursing Note INR: 2.2 in therapeutic range of 2-3 Medications and supplements reviewed No changes in health, diet, medications, or supplements, Denies any signs and symptoms of bleeding or bruising or clotting. Bleeding, bruising, clotting discussed Nutritional guidance given to avoid greens today then to balance fruits and vegetables Dose: increase this week by 2.5mg then resume usual dose of 7.5mg X 4 days and 5mg X 3 days F/U INR: 05/19/25 Patient verbalizes understanding of instructions given Anti-Coag Initial Assessment Social Hx Patient Tobacco Use Status: Former Tobacco user Tobacco use type: Cigarette Smoking packs per day: 1 alcohol intake: former Alcohol intake frequency: does not drink Coding Level of Care Code Est Patient Level 1 Diagnoses Current use of anticoagulant therapy Z79.01 Results AMB INR Fingerstick AMB INR Fingerstick 2.2 Last Edit by Maria Isabel Garza RN on 05/07/25 11:06 interface delay Assessment & Plan Assessment & Plan (1) Current use of anticoagulant therapy: 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
--- OUTSIDE RECORDS SUMMARY | 2025-05-07 12:54 | XMS_ITS | Clinical Summary ---
Author Organization [facility] ity Address [address] [place] [address] Care Team Providers Care Face Man Name Role Phone Unavailable Primary Care Provider [...] Procedure Name Priority Date/Time Associated Diagnosis Comments [facility] SCREENING DIGITAL Routine 09/03/2022 8:59 AM EDT Encounter for screening mammogram for malignant neoplasm of breast [facility] DEXA AXIAL SKELETON Routine 12/20/2020 3:43 PM EST Encounter for screening for osteoporosis from Last 3 Months or Most Recently Relevant to Health Maintenance Results * [facility] SCREENING DIGITAL (09/03/2022 8:59 AM EDT) Anatomical Region Laterality Modality Mammography 08/31/2022 10:1 7 AM EDT Narrative 09/03/2022 8:59 AM EDT [facility] Diagnostic Imaging Department [address] [place] [address] Patient: TAVOSarbjitTIBURCIO /Age/Sex: 1960 - 61 - F Unit#: [id number] Location/Status: SPDIMAM/PRE CLI Mnemonic/Ordering Site: [facility] Ordering Physician: JEWEL NUÑEZ MD [facility] Screening Digital - 09/02/22 - 1004 EXAM: [facility] Screening Digital EXAM DATE AND TIME: 09/02/2022 10:04 AM HISTORY: Annual screening mammography. Limited mobility of the right shoulder due to injury. COMPARISON: 09/25/2020 through 12/31/2015. TECHNIQUE: CC and MLO views of both breasts were obtained using full field digital mammography. Bilateral digital breast tomosynthesis was performed in the MLO projection. 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 TISSUE DENSITY: a. The breasts [...] Routine screening mammogram BILATERAL in 1 year. 29631, 35740 3342F, 7025F Dictating Physician: AMARILIS PRESTON MD Electronically Signed by: AMARILIS PRESTON MD Dic Date/Time: 09/03/2256 Sign date/Time: 09/03/2259 Procedure Note Lisa Preston MD - 11/01/2022 [facility] Diagnostic Imaging Department [address] [place] [address] Patient: TAVOSarbjitTIBURCIO/Age/Sex: 1960 - 61 - F Unit#: [id number] Location/Status: SPDIMAM/PRE CLI Mnemonic/Ordering Site: [facility] Ordering Physician: JEWEL NUÑEZ MD [facility] Screening Digital - 09/02/22 - 1004 EXAM: [facility] Screening Digital EXAM DATE AND TIME: 09/02/2022 10:04 AM HISTORY: Annual screening mammography. Limited mobility of the rightshoulder due to injury. COMPARISON: 09/25/2020 through 12/31/2015. TECHNIQUE: CC and MLO views of both breasts were obtained using fullfield digital mammography. Bilateral digital breast tomosynthesis was performedin the MLO projection. 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 TISSUE DENSITY: a. The breasts are [...] Routine screening mammogram BILATERAL in 1 year. 77044, 46865 3342F, 7025F Dictating Physician: AMARILIS PRESTON MD Electronically Signed by: AMARILIS PRESTON MD Dic Date/Time: 09/03/2256 Sign date/Time: 09/03/2259 Jewel Nuñez MD IMG BI PROCEDURES Final Result * [facility] DEXA AXIAL SKELETON (12/20/2020 3:43 PM EST) Anatomical Region Laterality Modality Mammography 12/20/2020 2:40 PM EST Narrative 12/20/2020 3:43 PM EST [facility] Diagnostic Imaging Department [address] [place] [address] Patient: TIBURCIO ZELAYA Malorie Staton/Age/Sex: 1960 - 60 - F Unit#: [id number] Location/Status: SPDIMA/REG CLI Mnemonic/Ordering Site: [facility] Ordering Physician: ENEIDA PAYAN IT SECURITY SPECIALIST Rangel Dexa Axial Skeleton - 12/20/20 - [...] probability of hip fracture of 0.7%. Code 26083 Dictating Physician: TERRIE MARIA MD Electronically Signed by: TERRIE MARIA MD Dic Date/Time: 12/20/201541 Sign date/Time: 02/08/21 1543 Procedure Note Terrie Maria MD - 10/31/2022 [facility] Diagnostic Imaging Department [address] [place] [address] [id number] Patient: KRYSTIBURCIOJOANNE Siddiqui./Age/Sex: 1960 - 60 - F Unit#: [id number] Location/Status: [facility] CLI Mnemonic/[facility] Ordering Physician: ENEIDA PAYAN IT SECURITY SPECIALIST Rangel Dexa Axial Skeleton - 12/20/201531 HISTORY: [...] density of the femurs bilaterally is 0.972 gm/nk4egdoe is 96% of that of young normals [...] probability of hip fracture of 0.7%. Code 96507 Dictating Physician: TERRIE MARIA MD Electronically Signed by: TERRIE MARIA MD Dic Date/Time: 12/20/20 1542 Sign date/Time: 12/20/20 1543 Eneida Payan NP IM BI PROCEDURES Final Resul t from Last 3 Months or Most Recently Relevant to Health Maintenance
== END 2025-05-07 11:19 | disposition home or self-care (01) ==
LOC: HO.ACS 10:53
PROVIDERS: PCP Internal Medicine; Visit Provider Internal Medicine Medical Oncology
DX: Z79.01 Long term (current) use of anticoagulants (principal)

== ENCOUNTER → 2025-05-07 10:53 | Outpatient (BNVA) | payer MEDICARE, OTHER, SELFPAY | PROVIDERS: PCP Internal Medicine; Visit Provider Internal Medicine Medical Oncology | DX: I82.503 Chronic embolism and thrombosis of unspecified deep veins of lower extremity, bilateral (principal); Z79.01 Long term (current) use of anticoagulants; Z51.81 Encounter for therapeutic drug level monitoring | CPT/HCPCS: 85610; 99211 ==

== ENCOUNTER 2025-05-12 09:56 | Outpatient (AMB) | payer MEDICARE, OTHER, SELFPAY ==
--- NOTE | 2025-05-12 09:59 | MHC.OFFVIS ---
Intake Visit Reasons: 2 week follow up right leg angiogram Intake Note: Patient presents for right leg angiogram. Patient states she is feeling good , no complications. Accompanied by: Self / Same As Patient Allergies droperidol (From INAPSINE) Allergy (Severe, Verified 05/12/25 10:02) Anaphylaxis egg (EGG) Allergy (Severe, Verified 05/12/25 10:02) Nausea and Vomiting latex (LATEX) Allergy (Severe, Verified 05/12/25 10:02) HIVES metformin (METFORMIN) Allergy (Severe, Verified 05/12/25 10:02) DIZZINESS AND NAUSEA penicillin V Allergy (Severe, Verified 05/12/25 10:02) RASH codeine (CODEINE) Allergy (Intermediate, Verified 05/12/25 10:02) Rash Hydrocodone Bitartrate Allergy (Intermediate, Uncoded 05/07/25 11:02) Rash HPI HPI 2 week follow up right leg angiogram: Details: The patient is a 64-year-old female presenting for follow-up after a diagnostic angiogram performed for a non-healing ulcer on the right foot. The ulcer has been present since approximately February, following an incident involving a toy truck. The ulcer has not healed over the past four months, and there is exposed bone in the area. The angiogram revealed good blood flow to the feet, but the ulcer remains non-healing, raising concerns about the potential need for amputation of the right second toe. The patient has been managing the ulcer with dressings, but there is a possibility that the ulcer may not heal without surgical intervention. [facility] Medical History Hx of drainage of abscess DVT (deep venous thrombosis) Arthritis Low back pain Diabetes Elevated cholesterol Colon polyps Mccormack esophagus Bronchial asthma HTN (hypertension) Polycythemia Current use of anticoagulant therapy Surgical History Previous back surgery Hx of colonoscopy History of hysterectomy History of delivery History of appendectomy History of cholecystectomy Family History Father Heart disease Afib Heart attack Maternal Grandmother Lung cancer Maternal Grandfather Prostate CA Paternal Grandmother Heart attack Paternal Grandfather Heart attack Social History Household Members: Spouse Housing: Apartment Are you a primary children's zoo caretaker to a significant other at home: No Do you presently have visiting nurse or other home services: No Alcohol intake: former Patient Tobacco Use Status: Former Tobacco user Tobacco use type: Cigarette Cigarette Packs Per Day: 1 Years Smoked: 25 Substance Use Type: Marijuana service: No Current occupational status: retired Review of Systems Const All systems reviewed & are unremarkable except as noted in HPI and below Reports no additional complaints ENT Reports Normal hearing present Card Denies chest pain, Denies chest pain at rest, Denies chest pain with activity and Denies pedal edema Resp Denies cough GI Denies abdominal pain Musc Denies abnormal gait, Denies muscle cramps and Denies radiating pain into limb Skin/Breast Denies skin ulcer and Denies wounds Neuro Reports Normal hearing present and Denies abnormal gait Psych Reports no additional complaints Physical Exam Const General: cooperative, healthy appearing and comfortable Orientation/consciousness: oriented to person, oriented to place and oriented to time HEENT Head: Yes normal to inspection Neck Neck: Yes normal visual inspection Carotids: no bruits Chest Chest palpation & inspection: normal inspection of the chest Resp Effort & Inspection: normal respiratory effort and able to speak in complete sentences Auscultation: clear to auscultation bilaterally, no crackles, no rales, no rhonchi and no wheezes Cardio Rate: regular rate Rhythm: regular rhythm Heart sounds: S1 normal heart sound present and S2 normal heart sound present Bruits: no carotid bruits Peripheral pulses: Peripheral pulses 2+ throughout GI Inspection: Yes normal to inspection Skin Other: Right 2nd toe opening on the dorsum of the toe. Nonhealing ulcer. Wounds: no wounds Hair: normal Neuro General: oriented to person, oriented to place and oriented to time Cranial nerves: Yes CN's II-XII intact bilaterally and Yes Normal hearing present Cognition (Neuro): normal cognition Motor exam (neuro): 5/5 motor strength present throughout Extrem Other: venous exam: No significant superficial varicosities or spider telangiectasias, minimal edema General: No clubbing, No cyanosis and No edema Psych Appearance: grossly normal Mental Status: mental status grossly normal Speech and movement: Normal speech and movement present Assessment & Plan Assessment & Plan (1) PAD (peripheral artery disease): Comment: 04/29/2025 diagnostic angiogram Code(s): I73.9 - Peripheral vascular disease, unspecified Category: Medical Plan: In short patient has nonhealing right 2nd toe ulcer. She does have adequate blood supply to heal the ulcer. Unfortunately this has been nonhealing for a significant period time and there is exposed bone. We will give it additional time for conservative management. Should it not heal I do recommend 2nd toe amputation. They will allow for healing and for her to get back to normal activities in a more expedient fashion. She will follow up with us in approximately 1 months time. Thank you for allowing us to assist in her care Plan Patient was informed and verbally consented to the use of an ambient scribe for clinic note documentation during this visit. Scribe Plan - Not visible on output: - Continue with regular dressing changes for the ulcer on the right foot. - Return for follow-up in one month to assess the healing progress. - Monitor for any signs of infection or worsening of the ulcer and seek medical attention if needed. Coding Level of Care Code Est Pt Level 4 (68090) Complex EM visit Add On G2211 Diagnoses PAD (peripheral artery disease) I73.9
--- OUTSIDE RECORDS SUMMARY | 2025-05-12 10:55 | XMS_ITS | Patient Health Record ---
Author Organization [facility] Address [address] [place] [address] Care Team Providers Care Horticulture Professor Name Role Phone Jewel Nuñez MD Primary Care Provider Jean Carlos Meadows Unavailable [phone] Freda Patel Unavailable Unavailable Allergies Allergen (clinical [...] 20 MG TAKE 1 CAPSULE BY [facility] EVERY DAY for 90 Active Warfarin [...] Problem Status W/U Status Risk Notes Problem [id number] Encounter for screening for malignant neoplasm of colon (Z12.11) Active confirmed Problem 705184735 History of adenomatous polyp of colon (Z86.010) Active confirmed Problem 482481918 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) Active confirmed Problem Diverticular disease of colon (996226958) Diverticulosis of large intestine without perforation or abscess without bleeding (K57.30) Active confirmed Problem Gastroesophageal reflux disease (192573373) Gastroesophageal reflux disease (K21.9) Active confirmed Problem 963421960 Gastroesophageal reflux disease without esophagitis (K21.9) Active confirmed Problem 874958436 Tubular adenoma of colon (D12.6) Active confirmed Problem 612113437 Gastroesophageal reflux disease, esophagitis presence not specified (K21.9) Active confirmed Problem Gastritis (3292913) Gastritis (K29.70) Active c onfirmed Problem Mccormack esophagus (993901072) 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 Plan Of Treatment Future Test Test Name Order Date COLONOSCOPY 11/27/2012 UPPER GI ENDOSCOPY 09/02/2019 COLONOSCOPY 09/02/2019 COLONOSCOPY 03/30/2020 UPPER GI ENDOSCOPY 07/19/2023 COLONOSCOPY 07/19/2023 Insurance Providers Payer Name Payer Address Payer Phone Subscriber Number Group Number Insured Name Patient Relationship to Insured Coverage Start Date Coverage End Date [facility] [address] [place] [address] [id number] TIBURCIO MARCANO Self - patient is the [...]
--- OUTSIDE RECORDS SUMMARY | 2025-05-12 10:55 | XMS_ITS | Clinical Summary ---
Author Organization [facility] ity Address [address] [place] [address] Care Team Providers Care Design Engineering Technician Name Role Phone Unavailable Primary Care [...] Risk Assessment 2023 COVID-19 Vaccine ( - 2023- season) 2024 Breast Cancer Screening 09/03/2024 09/03/20, 09/26/2020, 06/15/2019, Additional history exists Influenza Vaccine (#1) 2025 Osteoporosis Screening (Bone Density Screening) 12/20/2030 [...] Procedure Name Priority Date/Time Associated Diagnosis Comments [facility] SCREENING DIGITAL Routine 09/03/2022 8:59 AM EDT Encounter for screening mammogram for malignant neoplasm of breast [facility] DEXA AXIAL SKELETON Routine 12/20/2020 3:43 PM EST Encounter for screening for osteoporosis from Last 3 Months or Most Recently Relevant to Health Maintenance Results * [facility] SCREENING DIGITAL (09/03/2022 8:59 AM EDT) Anatomical Region Laterality Modality Mammography 08/31/2022 10:1 7 AM EDT Narrative 09/03/2022 8:59 AM EDT [facility] Diagnostic Imaging Department [address] [place] [address] Patient: TAVOSarbjitTIBURCIO /Age/Sex: 1960 - 61 - F Unit#: [id number] Location/Status: SPDIMAM/PRE CLI Mnemonic/Ordering Site: [facility] Ordering Physician: JEWEL NUÑEZ MD [facility] Screening Digital - 09/02/22 - 1004 EXAM: [facility] Screening Digital EXAM DATE AND TIME: 09/02/2022 10:04 AM HISTORY: Annual screening mammography. Limited mobility of the right shoulder due to injury. COMPARISON: 09/25/2020 through 12/31/2015. TECHNIQUE: CC and MLO views of both breasts were obtained using full field digital mammography. Bilateral digital breast tomosynthesis was performed in the MLO projection. Computer aided detection with the [employer].2-A.P Avanashiappa Silk was employed. TISSUE DENSITY: a. The breasts [...] Routine screening mammogram BILATERAL in 1 year. 00647, 75263 3342F, 7025F Dictating Physician: AMARILIS PRESTON MD Electronically Signed by: AMARILIS PRESTON MD Dic Date/Time: 09/03/2256 Sign date/Time: 09/03/2259 Procedure Note Lisa Preston MD - 11/01/2022 [facility] Diagnostic Imaging Department [address] [place] [address] Patient: TAVOSarbjitTIBURCIO/Age/Sex: 1960 - 61 - F Unit#: [id number] Location/Status: SPDIMAM/PRE CLI Mnemonic/Ordering Site: [facility] Ordering Physician: JEWEL NUÑEZ MD [facility] Screening Digital - 09/02/22 - 1004 EXAM: [facility] Screening Digital EXAM DATE AND TIME: 09/02/2022 10:04 AM HISTORY: Annual screening mammography. Limited mobility of the rightshoulder due to injury. COMPARISON: 09/25/2020 through 12/31/2015. TECHNIQUE: CC and MLO views of both breasts were obtained using fullfield digital mammography. Bilateral digital breast tomosynthesis was performedin the MLO projection. Computer aided detection with the [employer].2-Cloverleaf Communicationsas employed. TISSUE DENSITY: a. The breasts are [...] Routine screening mammogram BILATERAL in 1 year. 41829, 77052 3342F, 7025F Dictating Physician: AMARILIS PRESTON MD Electronically Signed by: AMARILIS PRESTON MD Dic Date/Time: 09/03/2256 Sign date/Time: 09/03/2259 Jewel Nuñez MD IMG BI PROCEDURES Final Result * [facility] DEXA AXIAL SKELETON (12/20/2020 3:43 PM EST) Anatomical Region Laterality Modality Mammography 12/20/2020 2:40 PM EST Narrative 12/20/2020 3:43 PM EST [facility] Diagnostic Imaging Department [address] [place] [address] Patient: TIBURCIO ZELAYA Malorie Staton/Age/Sex: 1960 - 60 - F Unit#: [id number] Location/Status: SPDIMA/REG CLI Mnemonic/Ordering Site: [facility]X/SPMAM Ordering Physician: ENEIDA PAYAN GEOMETRY TUTOR Rangel Dexa Axial Skeleton - 12/20/20 - [...] probability of hip fracture of 0.7%. Code 66136 Dictating Physician: TERRIE MARIA MD Electronically Signed by: TERRIE MARIA MD Dic Date/Time: 12/20/201541 Sign date/Time: 02/08/21 1543 Procedure Note Terrie Maria MD - 10/31/2022 [facility] Diagnostic Imaging Department [address] [place] [id number] Patient: KRYSTIBURCIOJOANNE Siddiqui./Age/Sex: 1960 - 60 - F Unit#: [id number] Location/Status: [facility] CLI Mnemonic[facility] Ordering Physician: ENEIDA PAYAN GEOMETRY TUTOR Rangel Dexa Axial Skeleton - 12/20/201531 HISTORY: [...] density of the femurs bilaterally is 0.972 gm/tm5ksvug is 96% of that of young normals [...] probability of hip fracture of 0.7%. Code 53029 Dictating Physician: TERRIE MARIA MD Electronically Signed by: TERRIE MARIA MD Dic Date/Time: 12/20/20 1542 Sign date/Time: 12/20/20 1543 Eneida Payan NP IM BI PROCEDURES Final Resul t from Last 3 Months or Most Recently Relevant to Health Maintenance
== END 2025-05-12 10:19 | disposition home or self-care (01) ==
LOC: HO.HVS 09:56
PROVIDERS: PCP Internal Medicine; Visit Provider Surgery Vascular Surgery
DX: I73.9 Peripheral vascular disease, unspecified (principal)
CPT/HCPCS: 99214; G2211

== ENCOUNTER → 2025-05-12 09:56 | Outpatient (BNVA) | payer MEDICARE, OTHER, SELFPAY | PROVIDERS: PCP Internal Medicine; Visit Provider Surgery Vascular Surgery | DX: L97.519 Non-pressure chronic ulcer of other part of right foot with unspecified severity (principal); I73.9 Peripheral vascular disease, unspecified | CPT/HCPCS: 99212 ==

== ENCOUNTER 2025-05-19 09:11 | Outpatient (AMB) | payer MEDICARE, OTHER, SELFPAY ==
[2025-05-19 09:19] LABS: Prothrombin Time Whole Bld POC 24.4 sec (11.1-13.5); ~PT, ~INR - Anti Coag Clinic 2.0 (0.9-1.1)
--- OUTSIDE RECORDS SUMMARY | 2025-05-19 09:33 | XMS_ITS | Clinical Summary ---
Author Organization [facility] ity Address [address] [place] [address] Care Team Providers Care Urban Forester Name Role Phone Unavailable Primary Care Provider [...] Procedure Name Priority Date/Time Associated Diagnosis Comments [facility] SCREENING DIGITAL Routine 09/03/2022 8:59 AM EDT Encounter for screening mammogram for malignant neoplasm of breast [facility] DEXA AXIAL SKELETON Routine 12/20/2020 3:43 PM EST Encounter for screening for osteoporosis from Last 3 Months or Most Recently Relevant to Health Maintenance Results * [facility] SCREENING DIGITAL (09/03/2022 8:59 AM EDT) Anatomical Region Laterality Modality Mammography 08/31/2022 10:1 7 AM EDT Narrative 09/03/2022 8:59 AM EDT [facility] Diagnostic Imaging Department [address] [place] [address] Patient: TAVOSarbjitTIBURCIO /Age/Sex: 1960 - 61 - F Unit#: [id number] Location/Status: SPDIMAM/PRE CLI Mnemonic/Ordering Site: [facility] Ordering Physician: JEWEL NUÑEZ MD [facility] Screening Digital - 09/02/22 - 1004 EXAM: [facility] Screening Digital EXAM DATE AND TIME: 09/02/2022 10:04 AM HISTORY: Annual screening mammography. Limited mobility of the right shoulder due to injury. COMPARISON: 09/25/2020 through 12/31/2015. TECHNIQUE: CC and MLO views of both breasts were obtained using full field digital mammography. Bilateral digital breast tomosynthesis was performed in the MLO projection. Computer aided detection with the [employer].2-tu.nr was employed. TISSUE DENSITY: a. The breasts [...] Routine screening mammogram BILATERAL in 1 year. 32286, 61328 3342F, 7025F Dictating Physician: AMARILIS PRESTON MD Electronically Signed by: AMARILIS PRESTON MD Dic Date/Time: 09/03/2256 Sign date/Time: 09/03/2259 Procedure Note Lisa Preston MD - 11/01/2022 [facility] Diagnostic Imaging Department [address] [place] [address] Patient: TAVOSarbjitTIBURCIO/Age/Sex: 1960 - 61 - F Unit#: [id number] Location/Status: SPDIMAM/PRE CLI Mnemonic/Ordering Site: [facility] Ordering Physician: JEWEL NUÑEZ MD [facility] Screening Digital - 09/02/22 - 1004 EXAM: [facility] Screening Digital EXAM DATE AND TIME: 09/02/2022 10:04 AM HISTORY: Annual screening mammography. Limited mobility of the rightshoulder due to injury. COMPARISON: 09/25/2020 through 12/31/2015. TECHNIQUE: CC and MLO views of both breasts were obtained using fullfield digital mammography. Bilateral digital breast tomosynthesis was performedin the MLO projection. Computer aided detection with the [employer].2-The [employer]as employed. TISSUE DENSITY: a. The breasts are [...] Routine screening mammogram BILATERAL in 1 year. 47431, 24079 3342F, 7025F Dictating Physician: AMARILIS PRESTON MD Electronically Signed by: AMARILIS PRESTON MD Dic Date/Time: 09/03/2256 Sign date/Time: 09/03/2259 Jewel Nuñez MD IMG BI PROCEDURES Final Result * [facility] DEXA AXIAL SKELETON (12/20/2020 3:43 PM EST) Anatomical Region Laterality Modality Mammography 12/20/2020 2:40 PM EST Narrative 12/20/2020 3:43 PM EST [facility] Diagnostic Imaging Department [address] [place] [address] Patient: TIBURCIO ZELAYA Malorie Staton/Age/Sex: 1960 - 60 - F Unit#: [id number] Location/Status: SPDIMA/REG CLI Mnemonic/Ordering Site: MAMDEXAAX/SPMAM Ordering Physician: ENEIDA PAYAN TRAVEL PHYSICAL THERAPIST Rangel Dexa Axial Skeleton - 12/20/20 - [...] probability of hip fracture of 0.7%. Code 88000 Dictating Physician: TERRIE MARIA MD Electronically Signed by: TERRIE MARIA MD Dic Date/Time: 12/20/201541 Sign date/Time: 02/08/21 1543 Procedure Note Terrie Maria MD - 10/31/2022 [facility] Diagnostic Imaging Department [address] [place] [id number] Patient: KRYSTIBURCIOJOANNE Siddiqui./Age/Sex: 1960 - 60 - F Unit#: [id number] Location/Status: [facility] CLI Mnemonic[facility] Ordering Physician: ENEIDA PAYAN TRAVEL PHYSICAL THERAPIST Rangel Dexa Axial Skeleton - 12/20/201531 HISTORY: [...] density of the femurs bilaterally is 0.972 gm/og5opfga is 96% of that of young normals [...] probability of hip fracture of 0.7%. Code 17166 Dictating Physician: TERRIE MARIA MD Electronically Signed by: TERRIE MARIA MD Dic Date/Time: 12/20/20 1542 Sign date/Time: 12/20/20 1543 Eneida Payan NP IM BI PROCEDURES Final Resul t from Last 3 Months or Most Recently Relevant to Health Maintenance
--- OUTSIDE RECORDS SUMMARY | 2025-05-19 09:34 | XMS_ITS | Patient Health Record ---
Author Organization [facility] Address [address] [place] [address] Care Team Providers Care Legal Billing Analyst Name Role Phone Jewel Nuñez MD Primary Care Provider Jean Carlos Meadows Unavailable [phone] Freda Patel Unavailable Unavailable Allergies Allergen (clinical [...] 20 MG TAKE 1 CAPSULE BY [facility] EVERY DAY for 90 Active [...] Problem Status W/U Status Risk Notes Problem 739034853 Encounter for screening for malignant neoplasm of colon (Z12.11) Active confirmed Problem 510441435 History of adenomatous polyp of colon (Z86.010) Active confirmed Problem 798506491 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) Active confirmed Problem Diverticular disease of colon (968837073) Diverticulosis of large intestine without perforation or abscess without bleeding (K57.30) Active confirmed Problem Gastroesophageal reflux disease (464356602) Gastroesophageal reflux disease (K21.9) Active confirmed Problem 913322783 Gastroesophageal reflux disease without esophagitis (K21.9) Active confirmed Problem 520328866 Tubular adenoma of colon (D12.6) Active confirmed Problem 739341817 Gastroesophageal reflux disease, esophagitis presence not specified (K21.9) Active confirmed Problem Gastritis (6719464) Gastritis (K29.70) Active c onfirmed Problem Mccormack esophagus (087215800) 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 Plan Of Treatment Future Test Test Name Order Date COLONOSCOPY 11/27/2012 UPPER GI ENDOSCOPY 09/02/2019 COLONOSCOPY 09/02/2019 COLONOSCOPY 03/30/2020 UPPER GI ENDOSCOPY 07/19/2023 COLONOSCOPY 07/19/2023 Insurance Providers Payer Name Payer Address Payer Phone Subscriber Number Group Number Insured Name Patient Relationship to Insured Coverage Start Date Coverage End Date [facility] [address] [place] [address] [id number] TIBURCIO MARCANO Self - patient is the insured Medical (General) History Medical History History ICD Code HTN Denies [place],CVA,Lung disease,renal disease Polycythemia vera since 2010-gets a [...]
--- NOTE | 2025-05-19 09:36 | MHC.OFFVISCO ---
Intake Intake Visit Reasons: Anticoagulation Allergies droperidol (From INAPSINE) Allergy (Severe, Verified 05/19/25 09:13) Anaphylaxis egg (EGG) Allergy (Severe, Verified 05/19/25 09:13) Nausea and Vomiting latex (LATEX) Allergy (Severe, Verified 05/19/25 09:13) HIVES metformin (METFORMIN) Allergy (Severe, Verified 05/19/25 09:13) DIZZINESS AND NAUSEA penicillin V Allergy (Severe, Verified 05/19/25 09:13) RASH codeine (CODEINE) Allergy (Intermediate, Verified 05/19/25 09:13) Rash Hydrocodone Bitartrate Allergy (Intermediate, Uncoded 05/19/25 09:13) Rash Medication List - Last Reconciled 05/19/25 by Zaria Leger RN atorvastatin 40 mg PO BEDTIME blood sugar diagnostic As directed celecoxib 200 caps PO BID cholecalciferol (vitamin D3) (Vitamin D3) 50 mcg PO DAILY empagliflozin 25 mg PO DAILY fluticasone propionate 50 mcg/actuation sprays intranasal gauze bandage As directed hydrocolloid dressing (Durafiber Dressing) As directed lisinopril 5 mg PO BEDTIME loratadine (Claritin) 10 mg PO DAILY omeprazole 20 mg PO DAILY@0630 tirzepatide (Mounjaro) 5 mg subcut SA warfarin 7.5 mg See Protocol PO TUTHSA@1800 warfarin 5 mg See Protocol PO SuMoWeFr@1800 Nursing Note INR: 2.0 in therapeutic range Medications and supplements reviewed- no changes at this time *Pt may have right foot 2nd toe amputation in June 2025 - date to be determined No changes in medications, or supplements, Denies any signs and symptoms of bleeding or bruising or clotting. Bleeding, bruising, clotting discussed Nutritional guidance given- Avoid greens x 3 days so INR can come up - then resume usual diet with a mix of fruits and vegetables Dose: increase slightly 7.5mg x 5 days/ 5mg x 2 days F/U INR: 1 week to make sure INR remains in range Patient verbalizes understanding of instructions given Anti-Coag Initial Assessment Social Hx Patient Tobacco Use Status: Former Tobacco user Tobacco use type: Cigarette Smoking packs per day: 1 alcohol intake: former Alcohol intake frequency: does not drink Coding Level of Care Code Est Patient Level 1 Diagnoses Current use of anticoagulant therapy Z79.01 Results AMB INR Fingerstick AMB INR Fingerstick 2.0 Last Edit by Zaria Leger RN on 05/19/25 09:20 manual entry Assessment & Plan Assessment & Plan (1) Current use of anticoagulant therapy: Code(s): Z79.01 - continuous churn buttermaker (current) use of anticoagulants
== END 2025-05-19 09:40 | disposition home or self-care (01) ==
LOC: HO.ACS 09:11
PROVIDERS: PCP Internal Medicine; Visit Provider Internal Medicine Medical Oncology
DX: Z79.01 Long term (current) use of anticoagulants (principal)

== ENCOUNTER → 2025-05-19 09:11 | Outpatient (BNVA) | payer MEDICARE, OTHER, SELFPAY | PROVIDERS: PCP Internal Medicine; Visit Provider Internal Medicine Medical Oncology | DX: I82.503 Chronic embolism and thrombosis of unspecified deep veins of lower extremity, bilateral (principal); Z79.01 Long term (current) use of anticoagulants; Z51.81 Encounter for therapeutic drug level monitoring | CPT/HCPCS: 85610; 99211 ==

== ENCOUNTER 2025-05-28 10:07 | Outpatient (AMB) | payer MEDICARE, OTHER, SELFPAY ==
[2025-05-28 10:19] LABS: Prothrombin Time Whole Bld POC 45.6 sec (11.1-13.5); ~PT, ~INR - Anti Coag Clinic 3.8 (0.9-1.1)
--- NOTE | 2025-05-28 10:26 | MHC.OFFVISCO ---
Intake Intake Visit Reasons: Anticoagulation Allergies droperidol (From INAPSINE) Allergy (Severe, Verified 05/28/25 10:14) Anaphylaxis egg (EGG) Allergy (Severe, Verified 05/28/25 10:14) Nausea and Vomiting latex (LATEX) Allergy (Severe, Verified 05/28/25 10:14) HIVES metformin (METFORMIN) Allergy (Severe, Verified 05/28/25 10:14) DIZZINESS AND NAUSEA penicillin V Allergy (Severe, Verified 05/28/25 10:14) RASH codeine (CODEINE) Allergy (Intermediate, Verified 05/28/25 10:14) Rash Hydrocodone Bitartrate Allergy (Intermediate, Uncoded 05/28/25 10:14) Rash Medication List - Last Reconciled 05/28/25 by Maria Isabel Garza, JACKELINE atorvastatin 40 mg PO BEDTIME blood sugar diagnostic As directed celecoxib 200 caps PO BID cholecalciferol (vitamin D3) (Vitamin D3) 50 mcg PO DAILY empagliflozin 25 mg PO DAILY fluticasone propionate 50 mcg/actuation sprays intranasal gauze bandage As directed hydrocolloid dressing (Durafiber Dressing) As directed lisinopril 5 mg PO BEDTIME loratadine (Claritin) 10 mg PO DAILY omeprazole 20 mg PO DAILY@0630 tirzepatide (Mounjaro) 5 mg subcut SA warfarin 7.5 mg See Protocol PO TUTHSA@1800 warfarin 5 mg See Protocol PO SuMoWeFr@1800 Nursing Note INR: 3.8 in therapeutic range of 2-3 Has been under stress with sick daughter and helping with the grandkids Medications and supplements reviewed No changes in health, diet, medications, or supplements, Denies any signs and symptoms of bleeding or bruising or clotting. Bleeding, bruising, clotting discussed Nutritional guidance given to have a serving of greens today Dose: hold today's dose of 5mg then 7.5mg X 5 days and 5mg X 2 days F/U INR: 2 weeks Patient verbalizes understanding of instructions given Anti-Coag Initial Assessment Social Hx Patient Tobacco Use Status: Former Tobacco user Tobacco use type: Cigarette Smoking packs per day: 1 alcohol intake: former Alcohol intake frequency: does not drink Coding Level of Care Code Est Patient Level 1 Diagnoses Current use of anticoagulant therapy Z79.01 Results AMB INR Fingerstick AMB INR Fingerstick 3.8 Last Edit by Maria Isabel Garza RN on 05/28/25 10:19 interface delay Assessment & Plan Assessment & Plan (1) Current use of anticoagulant therapy: Code(s): Z79.01 - manager terminal (current) use of anticoagulants
--- OUTSIDE RECORDS SUMMARY | 2025-05-28 10:32 | XMS_ITS | Patient Health Record ---
Author Organization [facility] Address [address] [place] [address] Care Team Providers Care Manager Programming Name Role Phone Jewel Nuñez MD Primary Care Provider Jean Carlos Meadows Unavailable [phone] Freda Patel Unavailable Unavailable Allergies Allergen (clinical [...] Problem Status W/U Status Risk Notes Problem 020484042 Encounter for screening for malignant neoplasm of colon (Z12.11) Active confirmed Problem 395815406 History of adenomatous polyp of colon (Z86.010) Active confirmed Problem 278542250 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) Active confirmed Problem Diverticular disease of colon (326233951) Diverticulosis of large intestine without perforation or abscess without bleeding (K57.30) Active confirmed Problem Gastroesophageal reflux disease (960602993) Gastroesophageal reflux disease (K21.9) Active confirmed Problem 139113303 Gastroesophageal reflux disease without esophagitis (K21.9) Active confirmed Problem 073829452 Tubular adenoma of colon (D12.6) Active confirmed Problem 733514071 Gastroesophageal reflux disease, esophagitis presence not specified (K21.9) Active confirmed Problem Gastritis (5681133) Gastritis (K29.70) Active c onfirmed Problem Mccormack esophagus (516305733) 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 Plan Of Treatment Future Test Test Name Order Date COLONOSCOPY 11/27/2012 UPPER GI ENDOSCOPY 09/02/2019 COLONOSCOPY 09/02/2019 COLONOSCOPY 03/30/2020 UPPER GI ENDOSCOPY 07/19/2023 COLONOSCOPY 07/19/2023 Insurance Providers Payer Name Payer Address Payer Phone Subscriber Number Group Number Insured Name Patient Relationship to Insured Coverage Start Date Coverage End Date [facility] [address] [place] [address] [id number] TIBURCIO MARCANO Self - patient is the insured Medical (General) History Medical History History ICD Code HTN Denies [place],CVA,Lung disease,renal disease Polycythemia vera since 2010-gets a [...]
--- OUTSIDE RECORDS SUMMARY | 2025-05-28 10:32 | XMS_ITS | Clinical Summary ---
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 Name Role Phone Unavailable Primary Care Provider [...] Procedure Name Priority Date/Time Associated Diagnosis Comments [facility] SCREENING DIGITAL Routine 09/03/2022 8:59 AM EDT Encounter for screening mammogram for malignant neoplasm of breast [facility] DEXA AXIAL SKELETON Routine 12/20/2020 3:43 PM EST Encounter for screening for osteoporosis from Last 3 Months or Most Recently Relevant to Health Maintenance Results * [facility] SCREENING DIGITAL (09/03/2022 8:59 AM EDT) Anatomical Region Laterality Modality Mammography 08/31/2022 10:1 7 AM EDT Narrative 09/03/2022 8:59 AM EDT [facility] Diagnostic Imaging Department [address] [place] [address] Patient: TAVOSarbjitTIBURCIO /Age/Sex: 1960 - 61 - F Unit#: [id number] Location/Status: SPDIMAM/PRE CLI Mnemonic/Ordering Site: [facility] Ordering Physician: JEWEL NUÑEZ MD [facility] Screening Digital - 09/02/22 - 1004 EXAM: [facility] Screening Digital EXAM DATE AND TIME: 09/02/2022 10:04 AM HISTORY: Annual screening mammography. Limited mobility of the right shoulder due to injury. COMPARISON: 09/25/2020 through 12/31/2015. TECHNIQUE: CC and MLO views of both breasts were obtained using full field digital mammography. Bilateral digital breast tomosynthesis was performed in the MLO projection. 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 TISSUE DENSITY: a. The breasts [...] Routine screening mammogram BILATERAL in 1 year. 53993, 53932 3342F, 7025F Dictating Physician: AMARILIS PRESTON MD Electronically Signed by: AMARILIS PRESTON MD Dic Date/Time: 09/03/2256 Sign date/Time: 09/03/2259 Procedure Note Lisa Preston MD - 11/01/2022 [facility] Diagnostic Imaging Department [address] [place] [address] Patient: TAVOSarbjitTIBURCIO/Age/Sex: 1960 - 61 - F Unit#: [id number] Location/Status: SPDIMAM/PRE CLI Mnemonic/Ordering Site: [facility] Ordering Physician: JEWEL NUÑEZ MD [facility] Screening Digital - 09/02/22 - 1004 EXAM: [facility] Screening Digital EXAM DATE AND TIME: 09/02/2022 10:04 AM HISTORY: Annual screening mammography. Limited mobility of the rightshoulder due to injury. COMPARISON: 09/25/2020 through 12/31/2015. TECHNIQUE: CC and MLO views of both breasts were obtained using fullfield digital mammography. Bilateral digital breast tomosynthesis was performedin the MLO projection. 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 TISSUE DENSITY: a. The breasts are [...] Routine screening mammogram BILATERAL in 1 year. 34922, 29510 3342F, 7025F Dictating Physician: AMARILIS PRESTON MD Electronically Signed by: AMARILIS PRESTON MD Dic Date/Time: 09/03/2256 Sign date/Time: 09/03/2259 Jewel Nuñez MD IMG BI PROCEDURES Final Result * [facility] DEXA AXIAL SKELETON (12/20/2020 3:43 PM EST) Anatomical Region Laterality Modality Mammography 12/20/2020 2:40 PM EST Narrative 12/20/2020 3:43 PM EST [facility] Diagnostic Imaging Department [address] [place] [address] Patient: TIBURCIO ZELAYA Malorie Staton/Age/Sex: 1960 - 60 - F Unit#: [id number] Location/Status: SPDIMA/REG CLI Mnemonic/Ordering Site: [facility]/SPMAM Ordering Physician: ENEIDA PAYAN LEGISLATIVE DIRECTOR Rangel Dexa Axial Skeleton - 12/20/20 - [...] probability of hip fracture of 0.7%. Code 69379 Dictating Physician: TERRIE MARIA MD Electronically Signed by: TERRIE MARIA MD Dic Date/Time: 12/20/201541 Sign date/Time: 02/08/21 1543 Procedure Note Terrie Maria MD - 10/31/2022 [facility] Diagnostic Imaging Department [address] [place] [address] [id number] Patient: KRYSTIBURCIOJOANNE Siddiqui./Age/Sex: 1960 - 60 - F Unit#: [id number] Location/Status: [facility] CLI Mnemonic/[facility] Ordering Physician: ENEIDA PAYAN LEGISLATIVE DIRECTOR Rangel Dexa Axial Skeleton - 12/20/201531 HISTORY: [...] density of the femurs bilaterally is 0.972 gm/pg7goguf is 96% of that of young normals [...] probability of hip fracture of 0.7%. Code 64795 Dictating Physician: TERRIE MARIA MD Electronically Signed by: TERRIE MARIA MD Dic Date/Time: 12/20/20 1542 Sign date/Time: 12/20/20 1543 Eneida Payan NP IM BI PROCEDURES Final Resul t from Last 3 Months or Most Recently Relevant to Health Maintenance
== END 2025-05-28 10:31 | disposition home or self-care (01) ==
LOC: HO.ACS 10:07
PROVIDERS: PCP Internal Medicine; Visit Provider Internal Medicine Medical Oncology
DX: Z79.01 Long term (current) use of anticoagulants (principal)

== ENCOUNTER → 2025-05-28 10:07 | Outpatient (BNVA) | payer MEDICARE, OTHER, SELFPAY | PROVIDERS: PCP Internal Medicine; Visit Provider Internal Medicine Medical Oncology | DX: I82.503 Chronic embolism and thrombosis of unspecified deep veins of lower extremity, bilateral (principal); Z79.01 Long term (current) use of anticoagulants; Z51.81 Encounter for therapeutic drug level monitoring | CPT/HCPCS: 85610; 99211 ==

== ENCOUNTER 2025-06-11 10:00 | Outpatient (AMB) | payer MEDICARE, OTHER, SELFPAY ==
--- OUTSIDE RECORDS SUMMARY | 2025-06-11 10:38 | XMS_ITS | Clinical Summary ---
Author Organization [facility] [address] ity Address [address] [place] [address] Care Team Providers Care Metal Hanger Name Role Phone Unavailable Primary Care Provider [...] 2) 2008 Colorectal Cancer Screening: Colonoscopy 10/15/2022 Hepatitis C Screening 10/15/2022 Social Influencers of Health Screening 10/15/2022 Falls Risk Assessment 2023 COVID-19 Vaccine ( - 2023- season) 2024 Breast Cancer Screening 09/03/2024 09/03/20 22, 09/26/2020, 06/15/2019, Additional history exists Depression Screening 11/12/2024 Influenza Vaccine (#1) 2025 Osteoporosis Screening (Bone [...] Procedure Name Priority Date/Time Associated Diagnosis Comments [facility] SCREENING DIGITAL Routine 09/03/2022 8:59 AM EDT Encounter for screening mammogram for malignant neoplasm of breast [facility] DEXA AXIAL SKELETON Routine 12/20/2020 3:43 PM EST Encounter for screening for osteoporosis from Last 3 Months or Most Recently Relevant to Health Maintenance Results * [facility] SCREENING DIGITAL (09/03/2022 8:59 AM EDT) Anatomical Region Laterality Modality Mammography 08/31/2022 10:1 7 AM EDT Narrative 09/03/2022 8:59 AM EDT [facility] Diagnostic Imaging Department [address] [place] [address] Patient: TAVOSarbjitTIBURCIO /Age/Sex: 1960 - 61 - F Unit#: [id number] Location/Status: SPDIMAM/PRE CLI Mnemonic/Ordering Site: [facility] Ordering Physician: JEWEL NUÑEZ MD [facility] Screening Digital - 09/02/22 - 1004 EXAM: [facility] Screening Digital EXAM DATE AND TIME: 09/02/2022 10:04 AM HISTORY: Annual screening mammography. Limited mobility of the right shoulder due to injury. COMPARISON: 09/25/2020 through 12/31/2015. TECHNIQUE: CC and MLO views of both breasts were obtained using full field digital mammography. Bilateral digital breast tomosynthesis was performed in the MLO projection. 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 TISSUE DENSITY: a. The breasts [...] Routine screening mammogram BILATERAL in 1 year. 17042, 47212 3342F, 7025F Dictating Physician: AMARILIS PRESTON MD Electronically Signed by: AMARILIS PRESTON MD Dic Date/Time: 09/03/2256 Sign date/Time: 09/03/2259 Procedure Note Lisa Preston MD - 11/01/2022 [facility] Diagnostic Imaging Department [address] [place] [address] Patient: TAVOSarbjitTIBURCIO/Age/Sex: 1960 - 61 - F Unit#: [id number] Location/Status: SPDIMAM/PRE CLI Mnemonic/Ordering Site: [facility] Ordering Physician: JEWEL NUÑEZ MD [facility] Screening Digital - 09/02/22 - 1004 EXAM: [facility] Screening Digital EXAM DATE AND TIME: 09/02/2022 10:04 AM HISTORY: Annual screening mammography. Limited mobility of the rightshoulder due to injury. COMPARISON: 09/25/2020 through 12/31/2015. TECHNIQUE: CC and MLO views of both breasts were obtained using fullfield digital mammography. Bilateral digital breast tomosynthesis was performedin the MLO projection. 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 TISSUE DENSITY: a. The breasts are [...] Routine screening mammogram BILATERAL in 1 year. 00281, 97712 3342F, 7025F Dictating Physician: AMARILIS PRESTON MD Electronically Signed by: AMARILIS PRESTON MD Dic Date/Time: 09/03/2256 Sign date/Time: 09/03/2259 Jewel Nuñez MD IMG BI PROCEDURES Final Result * [facility] DEXA AXIAL SKELETON (12/20/2020 3:43 PM EST) Anatomical Region Laterality Modality Mammography 12/20/2020 2:40 PM EST Narrative 12/20/2020 3:43 PM EST [facility] Diagnostic Imaging Department [address] [place] [address] Patient: TIBURCIO ZELAYA Malorie Staton/Age/Sex: 1960 - 60 - F Unit#: [id number] Location/Status: SPDIMA/REG CLI Mnemonic/Ordering Site: [facility] Ordering Physician: ENEIDA PAYAN [employer] [facility] Dexa Axial Skeleton - 12/20/20 - [...] probability of hip fracture of 0.7%. Code 83880 Dictating Physician: TERRIE MARIA MD Electronically Signed by: TERRIE MARIA MD Dic Date/Time: 12/20/201541 Sign date/Time: 02/08/21 1543 Procedure Note Terrie Maria MD - 10/31/2022 [facility] Diagnostic Imaging Department [address] [place] [id number] Patient: KRYSTIBURCIOJOANNE Siddiqui./Age/Sex: 1960 - 60 - F Unit#: [id number] Location/Status: [facility] CLI Mnemonic[facility] Ordering Physician: ENEIDA PAYAN [employer] [facility] Dexa Axial Skeleton - 12/20/201531 HISTORY: [...] density of the femurs bilaterally is 0.972 gm/zi7ndbkx is 96% of that of young normals [...] probability of hip fracture of 0.7%. Code 64413 Dictating Physician: TERRIE MARIA MD Electronically Signed by: TERRIE MARIA MD Dic Date/Time: 12/20/20 1542 Sign date/Time: 12/20/20 1543 Eneida Payan NP IM BI PROCEDURES Final Resul t from Last 3 Months or Most Recently Relevant to Health Maintenance
--- OUTSIDE RECORDS SUMMARY | 2025-06-11 10:38 | XMS_ITS | Encounter Summary ---
Author Organization [facility] Address [address] [address] [facility] [address] [place] [address] Phone Care Team Providers Care Clinical Partner Name Role Phone Jewel Nuñez MD Primary Care Provider [phone] Edgard Hallman MD Unavailable Mike Fontenot MD Unavailable [phone] Nahomy Hurst MD Unavailable [phone] Jean Carlos Martínez MD Unavailable [phone] Reason for Visit * Reason Onset Date Comments TCM Visit 03/20/2025 [facility] Encounter Details Date Type Department Care Team ([facility] st Contact Info) Description 03/20/2025 Telephone [facility] Internal Medicine [address] [place], [place] [phone] Jewel Nuñez MD [address] [place], [place] [phone] [email or web address] TCM Visit ([facility]) Social History Tobacco Use Types Packs/Day Years Used Date Smoking Tobacco: Former Cigarettes 1 43 1 976 - 10/25/2018 Smokeless Tobacco: Never Comments:quit for 6 years an d started up again Alcohol Use Standard Drinks/Week Comments Not Currently 0 (1 standard drink = 0.6 oz pure alcohol) last drink about 8-10 year noted 09/11/23 Child or Family Care Answer Date Record ed Do you have problems with on e of the following making it difficult for you to work, study, or receive health care? No 12/16/2024 Education Answer Date Recorded Are you interested in more education? Not on yee e 07/03/2024 Are you concerned about learning? Not on file 07/03/2024 No 07/03/2024 No 07/03/2024 Food Answer Date Recorded Within the past 6 months we worried whether our food would run out before we got money to buy more. Never True 12/16/2024 Within the past 6 months the food we bought just didn't last and we didn't have enough money to get more. Never True Residential Stability Answer Date Recor ded What is your housing situation today? I have livia sing 12/16/2024 How many times have you move d in the past 12 months? Zero (I did not move) 12/16/2024 Paying for Meds Answer Date Recorded Do you have trouble paying for medicines? No 12/16/2024 Paying Utility Bills Answer Date Record ed Do you have trouble paying your heating or elect ricity bill? No 12/16/2024 Transportation Answer Date Recorded Has the lack of transportati on kept you from medical appointments or from getting medications? No 12/16/2024 Unemployment Answer Date Recorded Are you currently unemployed or working on a part-time or temporary basis, and looking for work? No 06/30/2022 Digital Access Answer Date Recorded No 12/16/2024 Yes 12/16/2024 Do you have reliable internet access at home? Ye s 12/16/2024 Do you have a device (e.g., phone, tablet, computer) with a working camera? Yes 12/16/2024 Intimate Partner Violence Answer Date R ecorded Denied Basic Needs Not on file 12/16/2024 In the past 12 months have y ou been in a relationship with a person who hurts, threatens, or tries to control you? No 12/16/2024 Worried food would run out Not on file 12/16 In the past 12 months have y ou been in a relationship with a person who hurts, threatens, or tries to control you? No 12/16/2024 Comments No Sex and Gender Information Value Date Recorded Sex Assigned at Not on file Legal Sex Female 9:51 PM EDT Gender Identity Not on file Sexual Orientation Not on file documented as of this encounter Progress Notes * Bony Leiva - 03/23/2025 8:56 PM EDT Received and scanned into chart * Bony Leiva - 03/23/2025 8:34 AM EDT Faxed to [facility] * Jewel Nuñez MD - 03/20/2025 8:48 PM EDT Get labs from [facility] * Carmen Orellana RN - 03/20/2025 10:46 AM EDT Post Discharge Summary: They took her off the Celebrex due to bleeding concerns but she restarted it again last night and states she is not concerned about it. States she has been doing this for years and nobody knows what they are doing. She has already reached out to the coumadin clinic to let them know she is back home. Post discharge call documentation: Is a post discharge call required?: Yes Please indicate post discharge status: Patient reached - post discharge complete Patient eligible for TCM billing (reached or two unsuccessful attempts within two business days post discharge)?: Yes General: Discharge information: Admit date: 03/17/25 Discharge date: 03/19/25 Discharge from: [facility] Reason for hospitalization: Toe Infection Discharge disposition: Home How is the patient feeling since discharge (pain level and other considerations)?: Stable/no change Safety and self care: Does the patient/caregiver have any safety concerns (falls, transfers, stairs, abuse, etc.)?: No Is the patient/caregiver able to take care of post discharge needs at home (wound care, medication(s), etc)?: Yes Assistive devices/equipment and home services: Was the patient sent home with any assistive devicesor equipment?: No Was the patient sent home with home services?: No Medication review: Were you able to review the medication list with the patient/caregiver?: Yes Were there any medication changes while the patient was in the hospital (such as anticoagulant dosechanges, insulin, etc)?: Yes What changes?: doxycycline hyclate 100 mg twice daily x 5 days, cephalexin 500 mg every 12 hours x 5 days Were there any discrepancies during medication review?: Yes What discrepancies?: see note about celebrex Was the patient/caregiver able to machine operator picker all new prescriptions?: Yes Does the patient need any other medications renewed/refilled?: Yes Does the patient/caregiver have questions regarding their medications or side effects?: No Follow up/conclusion: Was a follow up appointment scheduled with the patient's PCP office?: Yes Date of next appointment with the PCP: 03/24/25 * Anant Mendoza - 03/20/2025 10:33 AM EDT [facility] [employer] Smart Phrases: Transitional Care Management New Patient: YES/NO: no Hospitalization Name: [facility] Discharge Date: 03/19 Reason for Visit+ Diagnosis: Toe Infection Is the discharge summary in patient chart:YES/NO: yes If not did you inform the patient/patient advocate to fax it to the office: Please inform the patient/patient advocate to fax and bring a copy to the appt. Appointment Date: 03/24 Is the appt: virtual in person: in person Awareness: Appt need to be schedule with in 2 to 14 calendar days from discharge date Additional Note (if applicable): [facility] CSS Agent (Please do not reply to this user, as this inbox is not monitored. Thank you.) Thank you. documented in this encounter Plan of Treatment Upcoming Encounters Date Type Department Care Team (Late st Contact Info) Description 06/17/2025 11:00 AM EDT Office Visit [facility] Internal Medicine [address] [facility] [place] [address] Jewel Nuñez MD [address] [place] [address] [email or web address] 2025 2:00 PM EST Office Visit [facility] [address] [place] [address] Viki Thompson MD [address] [facility], 1st [place] [address] [email or web address] documented as of this encounter Visit Diagnoses Not on filedocumented in this encounter Additional Health Concerns Assessment Noted Time PHQ-2 Depression Total Score: 0 12/16/19 25 1:14 PM EST documented as of this encounter Care Teams Clinical Partner Relationship Specialty Start Date End Date Jewel Nuñez MD [address] [place] [address] [email or web address] PCP - General 08/30/17 Edgard Hallman MD [address] [place] [address] [address] [place] [address] Ophthalmology 06/22/20 Mike Fontenot MD [address] [place] [address] Dr [address] [place] [address] Cardiology 06/22/20 Nahomy Hurst MD [address] [place] [address] [email or web address] and [email or web address] 06/24/20 Jean Carlos Martínez MD [address] [place] [address] Drive [address] [place] [address] Gastroenterology 12/23/20 documented as of this encounter Additional Source Comments The information contained in this document represents components of the legal health record. It is not the complete legal health record.[facility]
--- OUTSIDE RECORDS SUMMARY | 2025-06-11 10:38 | XMS_ITS | Patient Health Record ---
Author Organization [facility] Address [address] [place] [address] Care Team Providers Care Sales Secretary Name Role Phone Jewel Nuñez MD Primary Care Provider Jean Carlos Meadows Unavailable [phone] Freda Patel Unavailable Unavailable Allergies Allergen (clinical drug ingredient) Drug/Non Drug Allergy documented on EMR Reaction Allergy Type Onset Date Status Vicodin Unknown Drug Allergy Active metformin Metformin HCl nausea and vomiting Drug Allergy Active Inapsine Unknown Drug Allergy Active Hydrocodone-Aceta minophen nausea Drug Allergy Active codeine [...] Problem Status W/U Status Risk Notes Problem 951160117 Encounter for screening for malignant neoplasm of colon (Z12.11) Active confirmed Problem 397926262 History of adenomatous polyp of colon (Z86.010) Active confirmed Problem 486032579 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) Active confirmed Problem Diverticular disease of colon (032896042) Diverticulosis of large intestine without perforation or abscess without bleeding (K57.30) Active confirmed Problem Gastroesophageal reflux disease (758192408) Gastroesophageal reflux disease (K21.9) Active confirmed Problem 948295897 Gastroesophageal reflux disease without esophagitis (K21.9) Active confirmed Problem 887155773 Tubular adenoma of colon (D12.6) Active confirmed Problem 281200762 Gastroesophageal reflux disease, esophagitis presence not specified (K21.9) Active confirmed Problem Gastritis (9971717) Gastritis (K29.70) Active c onfirmed Problem Mccormack esophagus (259216393) 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 Plan Of Treatment Future Test Test Name Order Date COLONOSCOPY 11/27/2012 UPPER GI ENDOSCOPY 09/02/2019 COLONOSCOPY 09/02/2019 COLONOSCOPY 03/30/2020 UPPER GI ENDOSCOPY 07/19/2023 COLONOSCOPY 07/19/2023 Insurance Providers Payer Name Payer Address Payer Phone Subscriber Number Group Number Insured Name Patient Relationship to Insured Coverage Start Date Coverage End Date [facility] [address] [place] [address] [id number] TIBURCIO MARCANO Self - patient is the insured Medical (General) History Medical History History ICD Code HTN Denies [place],CVA,Lung disease,renal disease Polycythemia vera since 2010-gets a [...]
[2025-06-11 10:46] LABS: Prothrombin Time Whole Bld POC 33.0 sec (11.1-13.5); ~PT, ~INR - Anti Coag Clinic 2.7 (0.9-1.1)
--- NOTE | 2025-06-11 10:49 | MHC.OFFVISCO ---
Intake Intake Visit Reasons: Anticoagulation Allergies droperidol (From INAPSINE) Allergy (Severe, Verified 06/11/25 10:39) Anaphylaxis egg (EGG) Allergy (Severe, Verified 06/11/25 10:39) Nausea and Vomiting latex (LATEX) Allergy (Severe, Verified 06/11/25 10:39) HIVES metformin (METFORMIN) Allergy (Severe, Verified 06/11/25 10:39) DIZZINESS AND NAUSEA penicillin V Allergy (Severe, Verified 06/11/25 10:39) RASH codeine (CODEINE) Allergy (Intermediate, Verified 06/11/25 10:39) Rash Hydrocodone Bitartrate Allergy (Intermediate, Uncoded 05/28/25 10:14) Rash Medication List - Last Reconciled 06/11/25 by Rebecca Crook RN atorvastatin 40 mg PO BEDTIME blood sugar diagnostic As directed celecoxib 200 caps PO BID cholecalciferol (vitamin D3) (Vitamin D3) 50 mcg PO DAILY empagliflozin 25 mg PO DAILY fluticasone propionate 50 mcg/actuation sprays intranasal gauze bandage As directed hydrocolloid dressing (Durafiber Dressing) As directed lisinopril 5 mg PO BEDTIME loratadine (Claritin) 10 mg PO DAILY omeprazole 20 mg PO DAILY@0630 tirzepatide (Mounjaro) 5 mg subcut SA warfarin 7.5 mg See Protocol PO TUTHSA@1800 warfarin 5 mg See Protocol PO SuMoWeFr@1800 Nursing Note NO CP,SOB,DIET/MED CHANGES,FALLS OR SX OF BLEEDING. CONTINUE PRESENT DOSE AND FOLLOW-UP IN 3 WEEKS GOOD UNDERSTANDING OF DOSING INSTR. Anti-Coag Initial Assessment Social Hx Patient Tobacco Use Status: Former Tobacco user Tobacco use type: Cigarette Smoking packs per day: 1 alcohol intake: former Alcohol intake frequency: does not drink Coding Level of Care Code Est Patient Level 1 Diagnoses Current use of anticoagulant therapy Z79.01 Assessment & Plan Assessment & Plan (1) Current use of anticoagulant therapy: Code(s): Z79.01 - nursing home (current) use of anticoagulants
== END 2025-06-11 10:51 | disposition home or self-care (01) ==
LOC: HO.ACS 10:00
PROVIDERS: PCP Internal Medicine; Visit Provider Internal Medicine Medical Oncology
DX: Z79.01 Long term (current) use of anticoagulants (principal)

== ENCOUNTER → 2025-06-11 10:00 | Outpatient (BNVA) | payer MEDICARE, OTHER, SELFPAY | PROVIDERS: PCP Internal Medicine; Visit Provider Internal Medicine Medical Oncology | DX: I82.503 Chronic embolism and thrombosis of unspecified deep veins of lower extremity, bilateral (principal); Z79.01 Long term (current) use of anticoagulants; Z51.81 Encounter for therapeutic drug level monitoring | CPT/HCPCS: 85610; 99211 ==

== ENCOUNTER 2025-06-25 09:59 | Outpatient (AMB) | payer MEDICARE, OTHER, SELFPAY ==
[2025-06-25 10:17] LABS: Prothrombin Time Whole Bld POC 36.6 sec (11.1-13.5); ~PT, ~INR - Anti Coag Clinic 3.1 (0.9-1.1)
--- NOTE | 2025-06-25 10:24 | MHC.OFFVISCO ---
Intake Intake Visit Reasons: Anticoagulation Allergies droperidol (From INAPSINE) Allergy (Severe, Verified 06/25/25 10:10) Anaphylaxis egg (EGG) Allergy (Severe, Verified 06/25/25 10:10) Nausea and Vomiting latex (LATEX) Allergy (Severe, Verified 06/25/25 10:10) HIVES metformin (METFORMIN) Allergy (Severe, Verified 06/25/25 10:10) DIZZINESS AND NAUSEA penicillin V Allergy (Severe, Verified 06/25/25 10:10) RASH codeine (CODEINE) Allergy (Intermediate, Verified 06/25/25 10:10) Rash Hydrocodone Bitartrate Allergy (Intermediate, Uncoded 06/25/25 10:10) Rash Medication List - Last Reconciled 06/25/25 by Zaria Leger RN atorvastatin 40 mg PO BEDTIME blood sugar diagnostic As directed celecoxib 200 caps PO BID cholecalciferol (vitamin D3) (Vitamin D3) 50 mcg PO DAILY doxycycline monohydrate 100 mg PO BID empagliflozin 25 mg PO DAILY fluticasone propionate 50 mcg/actuation sprays intranasal gauze bandage As directed hydrocolloid dressing (Durafiber Dressing) As directed lisinopril 5 mg PO BEDTIME loratadine (Claritin) 10 mg PO DAILY omeprazole 20 mg PO DAILY@0630 tirzepatide (Mounjaro) mg subcut warfarin 7.5 mg See Protocol PO TUTHSA@1800 warfarin 5 mg See Protocol PO SuMoWeFr@1800 Nursing Note INR 3.1? out of therapeutic range Medications and supplements reviewed Patient status: STILL ON ANTBX UNTIL SAT - LAST TIME ON ANTBX WARFARIN DOSE WAS DECREASED AND INR TANKED, KEPT SAME DOSE AND ENC DIET CHANGES. HER PINKY TOE IS GROSSLY INFECTED- WAITING TOE AMP Medications or supplements: DOXYCYCLINE SAT 06/27/25 LAST DOSE Diet: GOOD Denies any signs and symptoms of bleeding or clotting or unusual bruising Bleeding, bruising, clotting discussed Nutritional guidance given: INCREASE GREENS OVER THE WEEKEND Dose: KEEP SAME 5MG X 2 DAYS/ 7.5MG X 5 DAYS F/U INR Date : 07/01/25 KEEP APPT TO F/U INR POST ANTBX ?? Patient verbalizing understanding of instructions given. 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
--- OUTSIDE RECORDS SUMMARY | 2025-06-25 10:39 | XMS_ITS | Patient Health Record ---
Author Organization [facility] Address [address] [place] [address] Care Team Providers Care Rug Cleaner Name Role Phone Jewel Nuñez MD Primary Care Provider Jean Carlos Meadows Unavailable [phone] Freda Patel Unavailable Unavailable Allergies Allergen (clinical [...] 20 MG TAKE 1 CAPSULE BY [facility] EVERY DAY for 90 Active Warfarin [...] Problem Status W/U Status Risk Notes Problem 145841431 Encounter for screening for malignant neoplasm of colon (Z12.11) Active confirmed Problem 795116761 History of adenomatous polyp of colon (Z86.010) Active confirmed Problem 395050391 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 Problem Diverticular disease of colon (021034535) Diverticulosis of large intestine without perforation or abscess without bleeding (K57.30) Active confirmed Problem Gastroesophageal reflux disease (K21.9) Active confirmed Problem 643687651 Gastroesophageal reflux disease without esophagitis (K21.9) Active confirmed Problem 537304239 Tubular adenoma of colon (D12.6) Active confirmed Problem 379118233 Gastroesophageal reflux disease, esophagitis presence not specified (K21.9) Active confirmed Problem Gastritis (2725456) Gastritis (K29.70) Active confirmed Problem Mccormack esophagus (514839557) 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 Plan Of Treatment Future Test Test Name Order Date COLONOSCOPY 11/27/2012 UPPER GI ENDOSCOPY 09/02/2019 COLONOSCOPY 09/02/2019 COLONOSCOPY 03/30/2020 UPPER GI ENDOSCOPY 07/19/2023 COLONOSCOPY 07/19/2023 Insurance Providers Payer Name Payer Address Payer Phone Subscriber Number Group Number Insured Name Patient Relationship to Insured Coverage Start Date Coverage End Date [facility] [address] [place] [address] [id number] TIBURCIO MARCANO Self - patient is the insured Medical (General) History Medical History History ICD Code HTN Denies [place],CVA,Lung disease,renal disease Polycythemia vera since 2010-gets a [...]
--- OUTSIDE RECORDS SUMMARY | 2025-06-25 10:40 | XMS_ITS | Encounter Summary ---
Author Organization [facility] Address [address] [employer] [facility] [address] [place] [address] Phone Care Team Providers Care Historical Archeologist Name Role Phone Jewel Nuñez MD Primary Care Provider Edgard Hallman MD Unavailable Mike Fontenot MD Unavailable [phone] Nahomy Hurst MD Unavailable [phone] Jean Carlos Martínez MD Unavailable Reason for Visit * Reason Onset Date Comments No Show 05/13/2025 4:30 appt Encounter Details Date Type Department Care Team (Late st Contact Info) Description 05/13/2025 Telephone [facility] Internal Medicine [address] [place], [place] [phone] Jewel Nuñez MD [address] [place], [place] [phone] [email or web address] No Show (4:30 appt) Social History Tobacco Use Types Packs/Day Years [...] as of this encounter Progress Notes * Anant Mendoza - 05/13/2025 2:28 PM EDT 24-48 Hour No-Show Notice If caller not the patient: Name: Relationship: Cancel Appt Visit Type: FOLLOW UP VISIT Cancelation Reason: Personal Reasons Cancelation Detail: Pt stated that she is not feeling well Was Appt Reschedule: No Why Reschedule was not performed (W/Detail) Pt stated that she will wait until her next scheduled appt in June Awareness: I have reiterated our late cancellation policy to the caller. Agent Action: > Reason for Call: NO SHOW > Comment: Enter Cancel Appt date > Route: Only route to FD if the No-Show is a future date Call Center: Ensure the appt has been cancel from the future tab > Reiterate Scripting: Provide our late cancellation policy to the caller Required Scripting for Existing Patients: Thank you for notifying us about the cancellation. We will inform the provider. As a reminder, our policy requires at least 24 hours' notice for cancellations, as providers reserve time for your appointment, and short notice often makes it difficult to reschedule. You can cancel appointments anytime through your Patient Crumpler. We appreciate your understanding. Required Scripting for New Patients: Thank you for notifying us about the cancellation. We will inform the provider. Please be aware of our 48-hour cancellation policy for new patients. If you need to cancel or reschedule, we ask for at least 48 hours' notice. If you miss an appointment or cancel without sufficient notice, it will be marked as a No-Show appointment. We allow for two unforeseen circumstances under this policy. This policy ensures that our providers can manage their schedules effectively. Additionally, you can cancel appointments anytime through your Patient Crumpler. documented in this encounter Plan of Treatment Upcoming Encounters Date Type Department Care Team (Late st Contact Info) Description 06/17/2025 Procedure Pass [facility], Ct Scan - [facility] [address] [place] [address] 08/08/2025 1:45 PM EDT Appointment [facility], Ct Scan - [facility] [address] [place] [address] Jewel Nuñez MD [address] [place] [address] 09/23/2025 2:00 PM EST Office Visit [facility] Internal Medicine [address] [place] [address] Jewel Nuñez MD [address] [place] [address] 2025 2:00 PM EST Office Visit [facility] [address] [place] [address] Viki Thompson MD [address] [facility], [address] [place] [address] documented as of this encounter Visit Diagnoses Not on filedocumented in this encounter Additional Health Concerns Assessment Noted Time PHQ-2 Depression Total Score: 0 12/16/19 25 1:14 PM EST documented as of this encounter Care Teams Historical Archeologist Relationship Specialty Start Date End Date Jewel Nuñez MD [address] [place] [address] PCP - General 08/30/17 Edgard Hallman MD [address] [place] [address] [address] [place] [phone] Ophthalmology 06/22/20 Mike Fontenot MD [address] [place] [address] Dr Gaston [place] [phone] Cardiology 06/22/20 Nahomy Hurst MD [address] [place] [address] [email or web address] Hematology and Oncology 06/24/20 Jean Carlos Martínez MD [address] [place] [address] [place] [address] Gastroenterology 12/23/20 documented as of this encounter Additional Source Comments The information contained in this document represents components of the legal health record. It is not the complete legal health record.[facility]
--- OUTSIDE RECORDS SUMMARY | 2025-06-25 10:40 | XMS_ITS | Clinical Summary ---
Author Organization [facility] ity Address [address] [place] [address] Care Team Providers Care Sander Wooden Pencils Name Role Phone Unavailable Primary Care Provider [...] Procedure Name Priority Date/Time Associated Diagnosis Comments [facility] SCREENING DIGITAL Routine 09/03/2022 8:59 AM EDT Encounter for screening mammogram for malignant neoplasm of breast [facility] DEXA AXIAL SKELETON Routine 12/20/2020 3:43 PM EST Encounter for screening for osteoporosis from Last 3 Months or Most Recently Relevant to Health Maintenance Results * [facility] SCREENING DIGITAL (09/03/2022 8:59 AM EDT) Anatomical Region Laterality Modality Mammography 08/31/2022 10:1 7 AM EDT Narrative 09/03/2022 8:59 AM EDT [facility] Diagnostic Imaging Department [address] [place] [address] Patient: TAVOSarbjitTIBURCIO /Age/Sex: 1960 - 61 - F Unit#: [id number] Location/Status: SPDIMAM/PRE CLI Mnemonic/Ordering Site: [facility] Ordering Physician: JEWEL NUÑEZ MD [facility] Screening Digital - 09/02/22 - 1004 EXAM: [facility] Screening Digital EXAM DATE AND TIME: 09/02/2022 10:04 AM HISTORY: Annual screening mammography. Limited mobility of the right shoulder due to injury. COMPARISON: 09/25/2020 through 12/31/2015. TECHNIQUE: CC and MLO views of both breasts were obtained using full field digital mammography. Bilateral digital breast tomosynthesis was performed in the MLO projection. 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 TISSUE DENSITY: a. The breasts [...] Routine screening mammogram BILATERAL in 1 year. [address], 04195 3342F, 7025F Dictating Physician: AMARILIS PRESTON MD Electronically Signed by: AMARILIS PRESTON MD Dic Date/Time: 09/03/2256 Sign date/Time: 09/03/2259 Procedure Note Lisa Preston MD - 11/01/2022 [facility] Diagnostic Imaging Department [address] [place] [address] Patient: TAVOSarbjitTIBURCIO/Age/Sex: 1960 - 61 - F Unit#: [id number] Location/Status: SPDIMAM/PRE CLI Mnemonic/Ordering Site: [facility] Ordering Physician: JEWEL NUÑEZ MD [facility] Screening Digital - 09/02/22 - 1004 EXAM: [facility] Screening Digital EXAM DATE AND TIME: 09/02/2022 10:04 AM HISTORY: Annual screening mammography. Limited mobility of the rightshoulder due to injury. COMPARISON: 09/25/2020 through 12/31/2015. TECHNIQUE: CC and MLO views of both breasts were obtained using fullfield digital mammography. Bilateral digital breast tomosynthesis was performedin the MLO projection. 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 TISSUE DENSITY: a. The breasts are [...] Routine screening mammogram BILATERAL in 1 year. [address]3057, 43529 3342F, 7025F Dictating Physician: AMARILIS PRESTON MD Electronically Signed by: AMARILIS PRESTON MD Dic Date/Time: 09/03/2256 Sign date/Time: 09/03/2259 Jewel Nuñez MD IMG BI PROCEDURES Final Result * [facility] DEXA AXIAL SKELETON (12/20/2020 3:43 PM EST) Anatomical Region Laterality Modality Mammography 12/20/2020 2:40 PM EST Narrative 12/20/2020 3:43 PM EST [facility] Diagnostic Imaging Department [address] [place] [address] Patient: TIBURCIO ZELAYA Malorie Staton/Age/Sex: 1960 - 60 - F Unit#: [id number] Location/Status: SPDIMA/REG CLI Mnemonic/Ordering Site: [facility] Ordering Physician: ENEIDA PAYAN GIS SOFTWARE ENGINEER Rangel Dexa Axial Skeleton - 12/20/20 - [...] probability of hip fracture of 0.7%. Code 29480 Dictating Physician: TERRIE MARIA MD Electronically Signed by: TERRIE MARIA MD Dic Date/Time: 12/20/201541 Sign date/Time: 02/08/21 1543 Procedure Note Terrie Maria MD - 10/31/2022 [facility] Diagnostic Imaging Department [address] [place] [id number] Patient: KRYSTIBURCIOJOANNE Siddiqui./Age/Sex: 1960 - 60 - F Unit#: [id number] Location/Status: [facility] CLI Mnemonic/[facility] Ordering Physician: ENEIDA PAYAN GIS SOFTWARE ENGINEER Rangel Dexa Axial Skeleton - 12/20/201531 HISTORY: [...] density of the femurs bilaterally is 0.972 gm/zc3myrxj is 96% of that of young normals [...] probability of hip fracture of 0.7%. Code 76529 Dictating Physician: TERRIE MARIA MD Electronically Signed by: TERRIE MARIA MD Dic Date/Time: 12/20/20 1542 Sign date/Time: 12/20/20 1543 Eneida Payan NP IM BI PROCEDURES Final Resul t from Last 3 Months or Most Recently Relevant to Health Maintenance
== END 2025-06-25 10:27 | disposition home or self-care (01) ==
LOC: HO.ACS 09:59
PROVIDERS: PCP Internal Medicine; Visit Provider Internal Medicine Medical Oncology
DX: Z79.01 Long term (current) use of anticoagulants (principal)

== ENCOUNTER → 2025-06-25 09:59 | Outpatient (BNVA) | payer MEDICARE, OTHER, SELFPAY | PROVIDERS: PCP Internal Medicine; Visit Provider Internal Medicine Medical Oncology | DX: Z51.81 Encounter for therapeutic drug level monitoring (principal); Z79.01 Long term (current) use of anticoagulants | CPT/HCPCS: 85610; 99211 ==

== ENCOUNTER 2025-06-30 13:59 | Outpatient (AMB) | payer MEDICARE, OTHER, SELFPAY ==
--- NOTE | 2025-06-30 14:03 | MHC.OFFVIS ---
Intake Visit Reasons: Follow up wound check Intake Note: 1 month follow up wound check Right 2nd toe ulcer s/p diagnostic angiogram 04/29/25. Pt states toe is worse, was taking Abx until last week. Clinical Rehabilitation Coordinator Required: No Accompanied by: Self / Same As Patient Allergies droperidol (From INAPSINE) Allergy (Severe, Verified 06/30/25 14:08) Anaphylaxis egg (EGG) Allergy (Severe, Verified 06/30/25 14:08) Nausea and Vomiting latex (LATEX) Allergy (Severe, Verified 06/30/25 14:08) HIVES metformin (METFORMIN) Allergy (Severe, Verified 06/30/25 14:08) DIZZINESS AND NAUSEA penicillin V Allergy (Severe, Verified 06/30/25 14:08) RASH codeine (CODEINE) Allergy (Intermediate, Verified 06/30/25 14:08) Rash Hydrocodone Bitartrate Allergy (Intermediate, Uncoded 06/30/25 14:08) Rash HPI HPI Follow up wound check: Details: Very pleasant 64-year-old female presents for follow-up evaluation after diagnostic angiogram. She has a nonhealing right 2nd toe the incident began after toy truck and has had a nonhealing ulcer. Angiogram revealed good flow to her feet but ulcer remains nonhealing. She now presents for routine wound check. [facility] Medical History Hx of drainage of abscess DVT (deep venous thrombosis) Arthritis Low back pain Diabetes Elevated cholesterol Colon polyps Mccormack esophagus Bronchial asthma HTN (hypertension) Polycythemia Current use of anticoagulant therapy Surgical History Previous back surgery Hx of colonoscopy History of hysterectomy History of delivery History of appendectomy History of cholecystectomy Family History Father Heart disease Afib Heart attack Maternal Grandmother Lung cancer Maternal Grandfather Prostate CA Paternal Grandmother Heart attack Paternal Grandfather Heart attack Social History Household Members: Spouse Housing: Apartment Are you a primary healthcare analyst to a significant other at home: No Do you presently have visiting nurse or other home services: No Alcohol intake: former Patient Tobacco Use Status: Former Tobacco user Tobacco use type: Cigarette Cigarette Packs Per Day: 1 Years Smoked: 25 Substance Use Type: Marijuana service: No Current occupational status: retired Review of Systems Const All systems reviewed & are unremarkable except as noted in HPI and below Reports no additional complaints ENT Reports Normal hearing present Card Denies chest pain, Denies chest pain at rest, Denies chest pain with activity and Denies pedal edema Resp Denies cough GI Denies abdominal pain Musc Denies abnormal gait, Denies muscle cramps and Denies radiating pain into limb Skin/Breast Denies skin ulcer and Denies wounds Neuro Reports Normal hearing present and Denies abnormal gait Psych Reports no additional complaints Physical Exam Const General: cooperative, healthy appearing and comfortable Orientation/consciousness: oriented to person, oriented to place and oriented to time HEENT Head: Yes normal to inspection Neck Neck: Yes normal visual inspection Carotids: no bruits Chest Chest palpation & inspection: normal inspection of the chest Resp Effort & Inspection: normal respiratory effort and able to speak in complete sentences Auscultation: clear to auscultation bilaterally, no crackles, no rales, no rhonchi and no wheezes Cardio Other: Bilateral DP signals Rate: regular rate Rhythm: regular rhythm Heart sounds: S1 normal heart sound present and S2 normal heart sound present Bruits: no carotid bruits Peripheral pulses: Peripheral pulses 2+ throughout GI Inspection: Yes normal to inspection Skin Other: Right 2nd toe distant tarsal disarticulation Wounds: no wounds Hair: normal Neuro General: oriented to person, oriented to place and oriented to time Cranial nerves: Yes CN's II-XII intact bilaterally and Yes Normal hearing present Cognition (Neuro): normal cognition Motor exam (neuro): 5/5 motor strength present throughout Extrem Other: venous exam: No significant superficial varicosities or spider telangiectasias, minimal edema General: No clubbing, No cyanosis and No edema Psych Appearance: grossly normal Mental Status: mental status grossly normal Speech and movement: Normal speech and movement present Assessment & Plan Assessment & Plan (1) PAD (peripheral artery disease): Comment: 04/29/2025 diagnostic angiogram Code(s): I73.9 - Peripheral vascular disease, unspecified Category: Medical Plan: In short patient has nonhealing right 2nd toe ulcer. She will require right 2nd toe amputation. Risks benefits complications were discussed in detail with the patient she understood and consented. We will try to schedule her within the next few weeks. Thank you for allowing us to assist in her care. If there are any questions or concerns please do not hesitate to contact us. Coding Level of Care Code Est Pt Level 4 (82717) Diagnoses PAD (peripheral artery disease) I73.9
--- OUTSIDE RECORDS SUMMARY | 2025-06-30 15:20 | XMS_ITS | Clinical Summary ---
Author Organization [facility] ity Address [address] [place] [address] Care Team Providers Care Rn Chemical Dependency Name Role Phone Unavailable Primary Care Provider [...] Procedure Name Priority Date/Time Associated Diagnosis Comments [facility] SCREENING DIGITAL Routine 09/03/2022 8:59 AM EDT Encounter for screening mammogram for malignant neoplasm of breast [facility] DEXA AXIAL SKELETON Routine 12/20/2020 3:43 PM EST Encounter for screening for osteoporosis from Last 3 Months or Most Recently Relevant to Health Maintenance Results * [facility] SCREENING DIGITAL (09/03/2022 8:59 AM EDT) Anatomical Region Laterality Modality Mammography 08/31/2022 10:1 7 AM EDT Narrative 09/03/2022 8:59 AM EDT [facility] Diagnostic Imaging Department [address] [place] [address] Patient: TAVOSarbjitTIBURCIO /Age/Sex: 1960 - 61 - F Unit#: [id number] Location/Status: SPDIMAM/PRE CLI Mnemonic/Ordering Site: [facility] Ordering Physician: JEWEL NUÑEZ MD [facility] Screening Digital - 09/02/22 - 1004 EXAM: [facility] Screening Digital EXAM DATE AND TIME: 09/02/2022 10:04 AM HISTORY: Annual screening mammography. Limited mobility of the right shoulder due to injury. COMPARISON: 09/25/2020 through 12/31/2015. TECHNIQUE: CC and MLO views of both breasts were obtained using full field digital mammography. Bilateral digital breast tomosynthesis was performed in the MLO projection. 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 TISSUE DENSITY: a. The breasts [...] Routine screening mammogram BILATERAL in 1 year. 26334, 25048 3342F, 7025F Dictating Physician: AMARILIS PRESTON MD Electronically Signed by: AMARILIS PRESTON MD Dic Date/Time: 09/03/2256 Sign date/Time: 09/03/2259 Procedure Note Lisa Preston MD - 11/01/2022 [facility] Diagnostic Imaging Department [address] [place] [address] Patient: TAVOSarbjitTIBURCIO/Age/Sex: 1960 - 61 - F Unit#: [id number] Location/Status: SPDIMAM/PRE CLI Mnemonic/Ordering Site: [facility] Ordering Physician: JEWEL NUÑEZ MD [facility] Screening Digital - 09/02/22 - 1004 EXAM: [facility] Screening Digital EXAM DATE AND TIME: 09/02/2022 10:04 AM HISTORY: Annual screening mammography. Limited mobility of the rightshoulder due to injury. COMPARISON: 09/25/2020 through 12/31/2015. TECHNIQUE: CC and MLO views of both breasts were obtained using fullfield digital mammography. Bilateral digital breast tomosynthesis was performedin the MLO projection. 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 TISSUE DENSITY: a. The breasts are [...] Routine screening mammogram BILATERAL in 1 year. 95425, 24189 3342F, 7025F Dictating Physician: AMARILIS PRESTON MD Electronically Signed by: AMARILIS PRESTON MD Dic Date/Time: 09/03/2256 Sign date/Time: 09/03/2259 Jewel Nuñez MD IMG BI PROCEDURES Final Result * [facility] DEXA AXIAL SKELETON (12/20/2020 3:43 PM EST) Anatomical Region Laterality Modality Mammography 12/20/2020 2:40 PM EST Narrative 12/20/2020 3:43 PM EST [facility] Diagnostic Imaging Department [address] [place] [address] Patient: TIBURCIO ZELAYA Malorie Staton/Age/Sex: 1960 - 60 - F Unit#: [id number] Location/Status: SPDIMA/REG CLI Mnemonic/Ordering Site: [facility] Ordering Physician: ENEIDA PAYAN ORTHOTIST/PROSTHETIST Rangel Dexa Axial Skeleton - 12/20/20 - [...] probability of hip fracture of 0.7%. Code 16428 Dictating Physician: TERRIE MARIA MD Electronically Signed by: TERRIE MARIA MD Dic Date/Time: 12/20/201541 Sign date/Time: 02/08/21 1543 Procedure Note Terrie Maria MD - 10/31/2022 [facility] Diagnostic Imaging Department [address] [place] [address] [id number] Patient: KRYSTIBURCIOJOANNE Siddiqui./Age/Sex: 1960 - 60 - F Unit#: [id number] Location/Status: [facility] CLI Mnemonic[facility] Ordering Physician: ENEIDA PAYAN ORTHOTIST/PROSTHETIST Rangel Dexa Axial Skeleton - 12/20/201531 HISTORY: [...] density of the femurs bilaterally is 0.972 gm/bk3muoti is 96% of that of young normals [...] probability of hip fracture of 0.7%. Code 79539 Dictating Physician: TERRIE MARIA MD Electronically Signed by: TERRIE MARIA MD Dic Date/Time: 12/20/20 1542 Sign date/Time: 12/20/20 1543 Eneida Payan NP IM BI PROCEDURES Final Resul t from Last 3 Months or Most Recently Relevant to Health Maintenance
--- OUTSIDE RECORDS SUMMARY | 2025-06-30 15:20 | XMS_ITS | Encounter Summary ---
Author Organization [facility] Address [address] [facility] [address] [place] [address] Phone Care Team Providers Care Creasing Machine Operator Name Role Phone Jewel Nuñez MD Primary Care Provider Edgard Hallman MD Unavailable Mike Fontenot MD Unavailable [phone] Nahomy Hurst MD Unavailable [phone] Jean Carlos Martínez MD Unavailable Reason for Visit * Reason Onset Date Comments No Show 05/13/2025 4:30 appt Encounter Details Date Type Department Care Team (Late st Contact Info) Description 05/13/[address] [facility] Internal Medicine [address] [place], [place] [phone] Jewel Nuñez MD [address] [place], [place] [phone] [email or web address] No Show (4:30 appt) Social History Tobacco [...] can cancel appointments anytime through your Patient Chancellor. We appreciate your understanding. Required Scripting for [...] can cancel appointments anytime through your Patient Chancellor. documented in this encounter Plan of Treatment Upcoming Encounters Date Type Department Care Team (Late st Contact Info) Description 06/17/2025 Procedure Pass [facility], Ct Scan - [facility] [address] [place] [address] 08/08/2025 1:45 PM EDT Appointment [facility] Ct Scan - [facility] [address] [place] [address] Jewel Nuñez MD [address] [place] [address] 09/23/2025 2:00 PM EST Office Visit [facility] Internal Medicine [address] [place] [address] Jewel Nuñez MD [address] [place] [address] 2025 2:00 PM EST Office Visit [facility] [address] [place] [address] Viki Thompson MD [address] [facility], [address] [place] [address] documented as of this encounter Visit Diagnoses Not on filedocumented in this encounter Additional Health Concerns Assessment Noted Time PHQ-2 Depression Total Score: 0 12/16/19 25 1:14 PM EST documented as of this encounter Care Teams Creasing Machine Operator Relationship Specialty Start Date End Date Jewel Nuñez MD [address] [place] [address] PCP - General 08/30/17 Edgard Hallman MD [address] [place] [address] Dr [place] [phone] Ophthalmology 06/22/20 Mike Fontenot MD [address] [place] [address] Dr Gaston [place] [phone] Cardiology 06/22/20 Nahomy Hurst MD [address] [place] [address] [email or web address] Hematology and Oncology 06/24/20 Jean Carlos Martínez MD [address] [place] [address] [place] [address] Gastroenterology 12/23/20 documented as of this encounter Additional Source Comments The information contained in this document represents components of the legal health record. It is not the complete legal health record.[facility]
--- OUTSIDE RECORDS SUMMARY | 2025-06-30 15:20 | XMS_ITS | Patient Health Record ---
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) Active confirmed Problem Diverticular disease of colon (909340226) Diverticulosis of large intestine without perforation or abscess without bleeding (K57.30) Active confirmed Problem Gastroesophageal reflux disease (796161115) Gastroesophageal reflux disease (K21.9) Active confirmed Problem 248554116 Gastroesophageal reflux disease without esophagitis (K21.9) Active confirmed Problem 492299700 Tubular adenoma of colon (D12.6) Active confirmed Problem 120149014 Gastroesophageal reflux disease, esophagitis presence not specified (K21.9) Active confirmed Problem Gastritis (1067223) Gastritis (K29.70) Active c onfirmed Problem Mccormack esophagus (442484466) 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 Plan Of Treatment Future Test Test Name Order Date COLONOSCOPY 11/27/2012 UPPER GI ENDOSCOPY 09/02/2019 COLONOSCOPY 09/02/2019 COLONOSCOPY 03/30/2020 UPPER GI ENDOSCOPY 07/19/2023 COLONOSCOPY 07/19/2023 Insurance Providers Payer Name Payer Address Payer Phone Subscriber Number Group Number Insured Name Patient Relationship to Insured Coverage Start Date [facility]age End Date [facility] [address] [place] [address] [id number] TIBURCIO MARCANO Self - patient is the [...]
== END 2025-06-30 14:24 | disposition home or self-care (01) ==
LOC: HO.HVS 14:00
PROVIDERS: PCP Internal Medicine; Visit Provider Surgery Vascular Surgery
DX: I73.9 Peripheral vascular disease, unspecified (principal)
CPT/HCPCS: 99214

== ENCOUNTER → 2025-06-30 13:59 | Outpatient (BNVA) | payer MEDICARE, OTHER, SELFPAY | PROVIDERS: PCP Internal Medicine; Visit Provider Surgery Vascular Surgery | DX: E11.51 Type 2 diabetes mellitus with diabetic peripheral angiopathy without gangrene (principal); E11.621 Type 2 diabetes mellitus with foot ulcer; L97.519 Non-pressure chronic ulcer of other part of right foot with unspecified severity | CPT/HCPCS: 99212 ==

== ENCOUNTER 2025-07-01 09:50 | Outpatient (AMB) | payer MEDICARE, OTHER, SELFPAY ==
--- NOTE | 2025-07-01 10:12 | MHC.OFFVISCO ---
Intake Intake Visit Reasons: Anticoagulation Allergies droperidol (From INAPSINE) Allergy (Severe, Verified 07/01/25 10:06) Anaphylaxis egg (EGG) Allergy (Severe, Verified 07/01/25 10:06) Nausea and Vomiting latex (LATEX) Allergy (Severe, Verified 07/01/25 10:06) HIVES metformin (METFORMIN) Allergy (Severe, Verified 07/01/25 10:06) DIZZINESS AND NAUSEA penicillin V Allergy (Severe, Verified 07/01/25 10:06) RASH codeine (CODEINE) Allergy (Intermediate, Verified 07/01/25 10:06) Rash Hydrocodone Bitartrate Allergy (Intermediate, Uncoded 07/01/25 10:06) Rash Nursing Note INR: 2.3- in therapeutic range of 2-3 Medications and supplements reviewed- finished doxy antibiotics on 06/27/25 No changes in health, diet, medications, or supplements, Denies any signs and symptoms of bleeding or bruising or clotting. Bleeding, bruising, clotting discussed Nutritional guidance given Dose: cont reg dosing- 5mg x 2, 7.5mg x 5 F/U INR: pt req 2 weeks Patient verbalizes understanding of instructions given pt scheduled for right second toe amp at [facility] on 07/27/25 with three day hold of warfarin and no lovenox per pt Anti-Coag Initial Assessment Social Hx Patient Tobacco Use Status: Former Tobacco user Tobacco use type: Cigarette Smoking packs per day: 1 alcohol intake: former Alcohol intake frequency: does not drink Coding Level of Care Code Est Patient Level 1 Diagnoses Current use of anticoagulant therapy Z79.01 Assessment & Plan Assessment & Plan (1) Current use of anticoagulant therapy: Code(s): 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
[2025-07-01 10:14] LABS: Prothrombin Time Whole Bld POC 27.0 sec (11.1-13.5); ~PT, ~INR - Anti Coag Clinic 2.3 (0.9-1.1)
== END 2025-07-01 10:45 | disposition home or self-care (01) ==
LOC: HO.ACS 09:50
PROVIDERS: PCP Internal Medicine; Visit Provider Internal Medicine Medical Oncology
DX: Z79.01 Long term (current) use of anticoagulants (principal)

== ENCOUNTER → 2025-07-01 09:50 | Outpatient (BNVA) | payer MEDICARE, OTHER, SELFPAY | PROVIDERS: PCP Internal Medicine; Visit Provider Internal Medicine Medical Oncology | DX: Z51.81 Encounter for therapeutic drug level monitoring (principal); Z79.01 Long term (current) use of anticoagulants | CPT/HCPCS: 85610; 99211 ==

== ENCOUNTER 2025-07-15 10:01 | Outpatient (AMB) | payer MEDICARE, OTHER, SELFPAY ==
[2025-07-15 10:15] LABS: Prothrombin Time Whole Bld POC 38.6 sec (11.1-13.5); ~PT, ~INR - Anti Coag Clinic 3.2 (0.9-1.1)
--- NOTE | 2025-07-15 10:15 | MHC.OFFVISCO ---
Intake Intake Visit Reasons: Anticoagulation Allergies droperidol (From INAPSINE) Allergy (Severe, Verified 07/15/25 10:08) Anaphylaxis egg (EGG) Allergy (Severe, Verified 07/15/25 10:08) Nausea and Vomiting latex (LATEX) Allergy (Severe, Verified 07/15/25 10:08) HIVES metformin (METFORMIN) Allergy (Severe, Verified 07/15/25 10:08) DIZZINESS AND NAUSEA penicillin V Allergy (Severe, Verified 07/15/25 10:08) RASH codeine (CODEINE) Allergy (Intermediate, Verified 07/15/25 10:08) Rash Hydrocodone Bitartrate Allergy (Intermediate, Uncoded 07/15/25 10:08) Rash Medication List - Last Reconciled 07/15/25 by Gianna Heard RN atorvastatin 40 mg PO BEDTIME blood sugar diagnostic As directed celecoxib 200 caps PO BID cholecalciferol (vitamin D3) (Vitamin D3) 50 mcg PO DAILY empagliflozin 25 mg PO DAILY fluticasone propionate 50 mcg/actuation sprays intranasal gauze bandage As directed hydrocolloid dressing (Durafiber Dressing) As directed lisinopril 5 mg PO BEDTIME loratadine (Claritin) 10 mg PO DAILY omeprazole 20 mg PO DAILY@0630 tirzepatide (Mounjaro) mg subcut warfarin 7.5 mg See Protocol PO TUTHSA@1800 warfarin 5 mg See Protocol PO SuMoWeFr@1800 Nursing Note INR 3.2-? out of therapeutic range OF 2-3 Medications and supplements reviewed Patient status: pt scheduled for toe amp on 07/27/25 with 3 day hold warfarin Medications or supplements: no changes, finished doxy on 06/27/25 Diet: same Denies any signs and symptoms of bleeding or clotting or unusual bruising Bleeding, bruising, clotting discussed Nutritional guidance given: eat a green today Dose: take 5mg today then 7.5mg tomm then cont reg dosing warfarin hold 3 days prior to proc per md F/U INR Date : sunday07/31/25 post proc?? Patient verbalizing understanding of instructions given. 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
--- OUTSIDE RECORDS SUMMARY | 2025-07-15 11:31 | XMS_ITS | Encounter Summary ---
Author Organization [facility] Address [address] [facility] [address] [place] [address] Phone Care Team Providers Care Color Depositing Machine Tender Name Role Phone Jewel Nuñez MD Primary Care Provider [phone] Edgard Hallman MD Unavailable Mike Fontenot MD Unavailable [phone] Nahomy Hurst MD Unavailable [phone] Jean Carlos Martínez MD Unavailable Reason for Visit * Reason Onset Date Comments No Show 05/13/2025 4:30 appt Encounter Details Date Type Department Care Team (Late st Contact Info) Description 05/13/2025 Telephone [employer] [facility] Internal Medicine [address] [place], [place] [phone] Jewel Nuñez MD [address] [place], [place] [phone] [email or web address] No Show (4:30 appt) Social History Tobacco [...] can cancel appointments anytime through your Patient [place]. We appreciate your understanding. Required Scripting for [...] can cancel appointments anytime through your Patient [place]. documented in this encounter Plan of Treatment Upcoming Encounters Date Type Department Care Team (Late st Contact Info) Description 06/17/2025 Procedure Pass [facility], Ct Scan - [facility] [address] [place] [address] 08/08/2025 1:45 PM EDT Appointment [facility], Ct Scan - [facility] [address] [place] [address] Jewel Nuñez MD [address] [place] [address] 09/23/2025 2:00 PM EST Office Visit [facility] Internal Medicine [address] [place] [address] Jewel Nuñez MD [address] [place] [address] 2025 2:00 PM EST Office Visit [facility] [address] [place] [address] Viki Thompson MD [address] [facility], [address] [place] [address] documented as of this encounter Visit Diagnoses Not on filedocumented in this encounter Additional Health Concerns Assessment Noted Time PHQ-2 Depression Total Score: 0 12/16/19 25 1:14 PM EST documented as of this encounter Care Teams Color Depositing Machine Tender Relationship Specialty Start Date End Date Jewel Nuñez MD [address] [place] [address] PCP - General 08/30/17 Edgard Hallman MD [address] [place] [address] Dr [place] [phone] Ophthalmology 06/22/20 Mike Fontenot MD [address] [place] [address] Dr Gaston [place] [phone] Cardiology 06/22/20 Nahomy Hurst MD [address] [place] [address] [email or web address] Hematology and Oncology 06/24/20 Jean Carlos Martínez MD [address] [place] [address] [place] [address] Gastroenterology 12/23/20 documented as of this encounter Additional Source Comments The information contained in this document represents components of the legal health record. It is not the complete legal health record.[facility]
--- OUTSIDE RECORDS SUMMARY | 2025-07-15 11:31 | XMS_ITS | Clinical Summary ---
Author Organization [facility] Address [address] [facility] [address] [place] [id number] Phone Care Team Providers Care Vice President Industrial Relations Name Role Phone Jewel Nuñez MD Primary Care Provider [phone] Edgard Hallman MD Unavailable Mike Fontenot MD Unavailable [phone] Nahomy Hurst MD Unavailable [phone] Jean Carlos Martínez MD Unavailable Allergies Active Allergy Reactions Criticality Noted Date Comments Codeine Palpitations Low 07/12/2017 Droperidol 07/12/2017 Other reaction(s): torticollis Hydrocodone-Acetamin ophen Nausea Only 07/12/2017 Latex Rash Low 07/12/2017 Metformin Hcl Nausea and/or Vomiting 07/12/2017 Penicillin Rash Low 07/12/2017 Medications alcohol PadM as directed 09/15/20 13 Active cholecalciferol (VITAMIN D3) 2,000 unit capsule Take 2,000 Units by mouth daily. Active omeprazole (PRILOSEC) 20 MG capsule Take 20 mg by mouth daily. 08/06/20 21 Active acetaminophen (TYLENOL) 500 MG tablet Take 2 tablets by mouth daily, as needed. Active guaifen/phenyleph/aceta minophn (TYLENOL SINUS SEVERE ORAL) Take 1 tablet by mouth daily as needed. Active loratadine (CLARITIN) 10 mg tablet Take 10 mg by mouth daily. Active lisinopril (PRINIVIL,ZESTRIL) 5 MG tabletIndications:Essen tial hypertension TAKE 1 TABLET (5 MG TOTAL) BY MOUTH DAILY. 90 tablet 2 12/08/19 25 Active atorvastatin (LIPITOR) 40 MG tabletIndications:Pure hypercholesterolemia TAKE 1 TABLET BY MOUTH EVERY DAY 90 tablet 3 12/08/19 25 Active warfarin (COUMADIN) 5 MG tabletIndications:Histo ry of DVT (deep vein thrombosis) TAKE 2 TABLETS BY MOUTH EVERY DAY DIRECTED 180 tablet 2 12/16/19 25 Active celecoxib (CELEBREX) 200 MG capsuleIndications:Prim patricia osteoarthritis involving multiple joints Take 1 capsule (200 mg total) by mouth 2 (two) times a day. 180 capsule 2 12/16/19 25 Active fluticasone propionate (FLONASE) 50 mcg/actuation nasal sprayIndications:Allerg ic rhinitis, unspecified seasonality, unspecified trigger 2 sprays by Nasal route daily. 48 mL 3 03/31/20 25 Active MOUNJARO 7.5 mg/0.5 mL PnIj subcutaneous penIndications:Type 2 diabetes mellitus with hyperglycemia, without long-term current use of insulin Inject 0.5 mL (7.5 mg total) under the skin once a week. E11.40 2 mL 3 05/29/20 25 Active FREESTYLE LITE Strp stripsIndications:Type 2 diabetes mellitus with hyperglycemia, without long-term current use of insulin Use to check blood sugar daily 50 strip 11 06/01/20 25 Active FREESTYLE LITE METER meter kitIndications:Type 2 diabetes mellitus with hyperglycemia, without long-term current use of insulin Use as instructed to check BG daily 1 each 06/01/20 25 Active FREESTYLE 28 gauge lancetsIndications:Type 2 diabetes mellitus with hyperglycemia, without long-term current use of insulin Use to check BG daily 50 each 11 06/01/20 25 Active JARDIANCE 25 mg tabletIndications:Type 2 diabetes mellitus without complication, without long-term current use of insulin TAKE 1 TABLET (25 MG TOTAL) BY MOUTH DAILY. 90 tablet 3 06/08/20 25 Active doxycycline monohydrate (MONODOX) 100 MG capsuleIndications:Cell ulitis of toe of right foot Take 1 capsule (100 mg total) by mouth 2 (two) times a day. 20 capsule 06/17/20 25 Active Active Problems Problem Noted Date Diagnosed Date Type 2 diabetes mellitus wit hout complication, without long-term current use of insulin 06/16/2021 Assessment & Plan (08/06/2023 3:17 PM EDT): A1c is again quite elevated and worsened since last time, there was no glucose data to review Rad is advised to self monitor blood sugars to assess patterns especially as she adjusts her lifestyle routines Rad has continued to lose weight, now over 40lb since 2 years ago, this is likely due to combination GLP1ra and SGLT2i therapies but also may be related to poor glucose control Rad continues on Trulicity and Jardiance and is tolerating both well, today we discussed optimizing Trulicity to 4.5 mg weekly, Rad has a large amount of 3mg pens available and will alternate her doses for now Rad is encouraged to remain active with bowling and childcare She is advised to contact me with any questions or concerns, we will follow up in 6 months Assessment & Plan (01/02/2023 3:32 PM EST): A1c is again quite elevated today, it is improved compared to last year but remains in poor range We did not have glucose data to review today, a CGM pro evaluation may be appropriate Rad is advised to self monitor blood sugars to assess patterns especially as she adjusts her lifestyle routines Rad has lost weight, 20lb since one year ago, this is likely due to combination GLP1ra and SGLT2i therapies Rad continues on Trulicity and Jardiance and is tolerating both well Rad is encouraged to remain active She is advised to contact me with any questions or concerns, we will follow up in 4 months Osteopenia of neck of left femur 12/22/2020 PVD (peripheral vascular disease) 04/27/2020 Adenoma of left adrenal gland 01/18/2018 Dyspnea on exertion 01/18/2018 Low back pain 01/18/2018 Nocturia 01/18/2018 Polycythemia 01/18/2018 Overview (07/31/2024): 07/01/24 [facility] [place]. 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 Primary osteoarthritis involving multiple joints 01/18/2018 Superficial thrombophlebitis of lower extremity 01/18/2018 History of DVT (deep vein thrombosis) 01/18/2018 Class 1 obesity 10/06/2017 Assessment & Plan (05/29/2025 2:41 PM EDT): Rad has lost over 40lb over the past 2 years but weight has been stable for the past several months, her BMI is ~32 Encouraged to try to eat a healthy balanced diet, activity has been impacted by wound at right foot The combination of GLP1ra and SGLT2i therapies can help with weight loss efforts, however weight loss can also be related to poor glucose control, Rad is tolerating Mounjaro well and we discussed a more optimized dosage today aimed at improving her glucose control and allowing for more weight loss Assessment & Plan (11/28/2024 3:10 PM EST): Rad has lost over 40lb over the past 2 years, her BMI is now just under 33 Encouraged to try to eat a healthy balanced diet, also encouraged to stay active as consistently as she can The combination of GLP1ra and SGLT2i therapies are likely helping with weight loss efforts, however there has been a plateau of effects, Rad is feeling more hungry than she did on Trulicity, weight loss has been modest since our last visit in fall 2022; we discussed trial of Mounjaro Assessment & Plan (08/06/2023 3:09 PM EDT): Rad has lost over 40lb over the past 2 years, her BMI is now just under 33 Encouraged to continue to eat a healthy balanced diet during the day and to work on making better choices in the evening, also encouraged to stay active as consistently as she can The combination of GLP1ra and SGLT2i therapies are likely helping with weight loss efforts, we discussed optimizing Trulicity dosage today Assessment & Plan (01/19/2020 6:23 PM EDT): Rad has lost weight since October, her BMI has decreased from 40.3 to 38.9 Encouraged to continue to eat a healthy balanced diet and to stay active as consistently as she can The combination of GLP1ra and SGLT2i therapies are likely helping with weight loss efforts Assessment & Plan (10/17/2019 1:30 PM EST): Rad has gained weight since the summer, most recently due to poorer eating Her blood sugar control will be impacted by rising insulin resistance as her weight increases Advised to continue to stay active, optimize this as tolerated and to try to improve diet Increase in GLP1ra dose may help with appetite control, portion control and also with weight loss Assessment & Plan (03/13/2019 12:43 PM EDT): Rad has gained weigh since her diet has worsened since smoking cessation We discussed the potential for modest weight loss with Key Strongly advised to improve diet and increase activity Weight loss would benefit blood sugar control by improving insulin sensitivity, blood pressure management would likely improve as well Assessment & Plan (02/12/2018 9:37 AM EDT): Stable weight with recent very modest weight loss reported, BMI remains at 39 Weight loss will help with blood pressure and blood sugar management and Jada is encouraged to continue to stay active and to do her best with healthy eating Pure hypercholesterolemia 10/06/2017 Assessment & Plan (05/29/2025 2:38 PM EDT): Continues on high intensity statin therapy No recent lipid panel is available for review, has orders on file from PCP LDL goal is <70 ideally Advised to try to eat a healthy diet as consistently as she can Assessment & Plan (11/28/2024 3:05 PM EST): Continues on high intensity statin therapy Most recent lipid panel was reviewed, this is from 2021 LDL was near optimal goal Continues to eat a healthy diet the majority of time but less mindful with this when stressed Assessment & Plan (08/06/2023 3:10 PM EDT): Continues on high intensity statin therapy Most recent lipid panel was reviewed, this is from over a year ago LDL was near optimal goal Continues to eat a healthy diet the majority of time but less mindful with this in evening Assessment & Plan (01/02/2023 3:29 PM EST): Continues on high intensity statin therapy Most recent lipid panel was reviewed, this is from one year ago Continues to eat a healthy diet the majority of time Assessment & Plan (08/25/2021 4:10 PM EDT): We optimized statin dosage at our last visit There is no updated lipid panel on file but Rad does have labs ordered and plans to have these done soon Is working on improving diet Assessment & Plan (10/14/2020 9:56 AM EST): We discussed an increase of atorvastatin to 40mg daily, Rad will double her current dose to 2 tabs once daily and a new prescription is sent for her Most recent LDL was just above goal at 104, stable compared to previous Assessment & Plan (01/19/2020 6:26 PM EDT): Continues on moderate intensity statin therapy Encouraged to improve diet If LDL remains above goal at next routine blood work then will plan to discuss increase in statin therapy Assessment & Plan (10/17/2019 1:34 PM EST): Continues on moderate intensity statin therapy Encouraged to improve diet If LDL remains above goal at next routine blood work then will plan to discuss increase in statin therapy Assessment & Plan (03/13/2019 12:44 PM EDT): Continues on moderate intensity statin therapy LDL just above goal at 109, nonHDL also just above 130 Change to high intensity dosing of atorva (40mg) may improve cholesterol values Assessment & Plan (11/22/2018 12:38 PM EST): Continues on moderate intensity statin therapy Due for updated lipid panel, has upcoming routine visit with Dr. Nuñez in January Assessment & Plan (10/11/2017 1:09 PM EST): Continue on Atorvastatin, consider optimizing therapy Most recent LDL 117 Type 2 diabetes mellitus without complications 1 12/06/2016 Assessment & Plan (10/17/2019 1:41 PM EST): As noted Rad will increase Trulicity and continue Jardiance at current dosage We will consider increasing Jardiance as needed or adding a third agent for a different mechanism of action to optimize glucose control We discussed the importance of healthy lifestyle Assessment & Plan (11/22/2018 12:40 PM EST): A1c is much higher indicating poor overall control, Rad is not monitoring blood sugars so it's unclear where specifically her issues lie Her overall lifestyle is healthy, she has made changes to her diet and is encouraged to continue Rad has stopped smoking and is congratulated on this She feels that Jardiance was more effective than Farxiga has been, she has not glucose data to back this up but has felt this for some time, her insurance now prefers Jardiance so she will start then when she is due for a refill, in the meantime she is advised to increase her current Farxiga dose to 10mg (two tablets) which may help improve efficacy Weight loss would likely benefit insulin sensitivity and glucose control, encouraged to continue healthy diet and also to stay active Rad is encouraged to call with any questions or concerns, she will return to meet with Livier Buck in January and with me in May Assessment & Plan (02/12/2018 9:44 AM EDT): Glycemic control in fair range but stable Not consistent with blood sugar monitoring and would benefit from more consistency in meals, we discussed these and Jada will continue to work with Karey Zuñiga on lifestyle habits and diabetes self management Overall doing well considering recent stressors, she is encouraged to continue her good efforts We did not adjust antihyperglycemic medication regimen today Assessment & Plan (10/11/2017 1:07 PM EST): Doing much better overall Will continue Januvia and Jardiance at current doses Encouraged to continue excellent efforts with diet, working with Karey Zuñiga RD CDE Type 2 diabetes mellitus wit h hyperglycemia, without long-term current use of insulin 10/06/2017 Assessment & Plan (05/29/2025 2:35 PM EDT): A1c remains quite elevated, we did not have data to evaluate today We discussed optimized dosage of Mounjaro, Rad has been tolerating this well at current dosage We discussed glucose monitoring, Rad reports that test strips were not covered when last sent, advised to discuss with pharmacy that these should be billed through Medicare Pt B not her secondary, if needs to go through secondary then we need to know what the preferred is She has had weight loss though we discussed that poor glucose control can also impact this, advised to aim at eating a healthy diet as consistently as she can Rad has been less active due to active wound on her right foot, she may need a toe amputated; we discussed importance of improving glucose control in order to allow for best outcomes related to this She is advised to contact me with any questions or concerns, we will follow up in 6 months but Rad is advised to let us know how she is doing on Mounjaro and we will continue to optimize this as needed Assessment & Plan (11/28/2024 3:20 PM EST): A1c remains quite elevated today We did not have data to evaluate today Rad reports that she was better able to manage her diet on Trulicity than she is on Ozempic, weight has been essentially stable, she has lost a total of 5lb since our last visit in Jul 2023 and BMI remains >30 We discussed trial of Mounjaro which is covered by insurance, Rad is agreeable to this Rad is encouraged to try her best with healthy eating, more effective impact from GLP/GIP combination medication should make this more successful, also advised to remain active as consistently as she can She is advised to contact me with any questions or concerns, we will follow up in 6 months but Rad is advised to let us know how she is doing on Mounjaro Assessment & Plan (08/25/2021 4:13 PM EDT): A1c is quite elevated today The few days of blood sugar data indicates global hyperglycemia, fasting blood sugars are very high We revisited basal insulin therapy, Rad remains opposed to this She is agreeable to an increase in Trulicity dosage to 3mg weekly, she will continue Jardiance Advised to remain off juice and reduce sugar intake in general Will return to follow up with Florence Salguero in the near future Rad is encouraged to remain active She is advised to contact me with any questions or concerns, we will follow up in 6 months but we will be in touch with Rad in 2 weeks to see how she is doing on higher dose of Trulicity Assessment & Plan (10/14/2020 10:00 AM EST): Overall control per A1c appears to be improved however still above goal Rad is encouraged to continue her healthier lifestyle habits -- increased activity, more restrained snacks in evening We discussed increase of jardiance to 25mg daily, Rad is given samples of this dose and if she tolerates this well then she will double her current large supply of jardiance until she needs a new prescription which we will adjust to 25mg tablets Rad is encouraged to contact me with any questions or concerns, she will return to meet with Florence Salguero in the next month or two and we will follow up in the spring Assessment & Plan (04/13/2020 12:31 PM EDT): Rad continues on Trulicity and Jardiance, tolerating these well Her hypoglycemia risk is low on these agents She has routine labs including A1c ordered on file per Dr. Nuñez, encouraged to take lab req with her to her next INR draw and have these done Encouraged to continue to try to eat a healthy diet as consistently as she can and to try to be active We did not adjust medication doses today though we could consider increasing jardiance to max dose if needed, will wait for upcoming A1c Encouraged to continue to self monitor blood sugars as consistently as she can to assess efficacy of current antihyperglycemic regimen Advised to call with any questions or concerns Will return to meet with RD, we will meet again in 6 months Assessment & Plan (01/20/2020 9:03 AM EDT): Continues to tolerate her antihyperglycemic medication regimen well, however lifestyle is suboptimal, Rad has been working on improving this The optimized dosage of Trulicity has been working better per Rad's report, it seems to offer more appetite suppressing and early satiety effects which helps her with portion control and may have helped with recent weight loss Will continue Jardiance 10mg once daily but we will consider increasing this as well if needed We discussed the importance of regular exercise and limitation of high carb foods, Rad is still challenged with seeming to need a snack at night or she has difficulty falling asleep, she is advised to try to minimize this/choose small very low carb snacks and over time she will hopefully not need this at all, this change will likely help improve FPG Encouraged to continue to monitor blood sugars consistently Advised to call with any questions or concerns Assessment & Plan (10/17/2019 1:39 PM EST): Continues to tolerate her antihyperglycemic medication regimen well, however lifestyle is suboptimal We discussed optimized dosage of Trulicity, this may offer the appetite suppressing and early satiety effects that Rad initially experienced with Trulicity and which helped her with portion control and weight loss Will continue Jardiance 10mg once daily but we will consider increasing this as well if needed We discussed the importance of regular exercise and limitation of high carb foods Encouraged to continue to monitor blood sugars consistently Advised to call with any questions or concerns Assessment & Plan (05/23/2019 11:12 AM EDT): Doing very well on GLP1ra, tolerating well Combination of SGLT2i and GLP1ra will help glucose control as well as weight management, there are also likely cardiovascular and renal benefits with these agents We did not adjust medications today Encouraged to make healthy choices when eating as consistently as possible, advised to try to stay active as much as is tolerable for her Encouraged to continue to monitor blood sugars regularly Will return to meet with SETH MONTES in July and with me in October, advised to call with any questions or concerns Assessment & Plan (03/13/2019 12:47 PM EDT): Has been resistant to injectible therapy in the past, we revisited this today and Rad is willing to proceed with an injectible medication, GLP1ra therapy would likely be more effective that oral DPP4i which she is currently taking Januvia may be contributing to joint pain as well, Rad will stop Januvia as she starts Trulicity Will start Trulicity 0.75mg weekly, we discussed the mechanism of action and effects that Rad is likely to experience, we also discussed side effects to be aware of, she is encouraged to call me with any questions or concerns PV and phlebotomy schedule may affect accuracy of A1c, Rad is strongly encouraged to get back to monitoring blood sugars closely We discussed a CGM trial to evaluate patterns however Rad reports sensitivity to adhesives Motivated to work on her diet/portion control, this may be helped by Key 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 Essential hypertension 10/06/2017 Assessment & Plan (05/29/2025 2:38 PM EDT): Blood pressure is borderline today Continues on ACEi Jardiance is also providing blood pressure/CV benefit Assessment & Plan (11/28/2024 2:59 PM EST): Blood pressure is well controlled Continues on ACEi Jardiance is also providing blood pressure benefit Assessment & Plan (08/06/2023 3:20 PM EDT): Blood pressure is well controlled Continues on ACEi Jardiance is also providing blood pressure benefit Assessment & Plan (01/02/2023 3:28 PM EST): Blood pressure is well controlled Continues on ACEi Jardiance is also providing blood pressure benefit Assessment & Plan (08/25/2021 4:08 PM EDT): Blood pressure is well controlled Continues on ACEi Assessment & Plan (10/14/2020 9:52 AM EST): Blood pressure is well controlled Continues on ACEi Assessment & Plan (01/19/2020 6:26 PM EDT): Blood pressure is well controlled Continues on ACEi Assessment & Plan (10/17/2019 1:35 PM EST): Blood pressure is well controlled Continues on ACEi Assessment & Plan (05/23/2019 11:09 AM EDT): Continues on ACEi Blood pressure is borderline today Likely has some blood pressure benefit from SGLT2i Continued weight loss and more regular activity will also help blood pressure control Assessment & Plan (03/13/2019 12:41 PM EDT): Continues on ACEi Blood pressure is elevated today Weight loss and regular exercise would likely benefit blood pressure control Assessment & Plan (11/22/2018 12:39 PM EST): Continues on ACEi Blood pressure elevated today Weight loss would likely help optimize blood pressure management Assessment & Plan (02/12/2018 9:35 AM EDT): Well controlled blood pressure on current regimen which includes ACEI Assessment & Plan (10/11/2017 1:10 PM EST): Well controlled blood pressure on current regimen Appropriately managed with ACEI and tolerating well Resolved Problems Problem Noted Date Diagnosed Date Resolved Date Tobacco use disorder, continuous 10/06/2017 03/13/2019 Assessment & Plan (11/22/2018 12:34 PM EST): Stopped smoking about a month ago Encounters Date Type Department Care Team Description 06/17/2025 11:00 AM EDT Office Visit [facility] Internal Medicine [address] [place] [address] Jewel Nuñez MD Cellulitis of toe of right foot (Primary Dx); Former moderate cigarette smoker (10-19 per day); Former smoker 06/07/[address] [place] [address] Viki Thompson MD Medication Refill 06/01/[address] [place] [address] Viki Thompson MD All supplies must be changed to Freestyle (All supplies must be changed to Freestyle) 05/29/2025 2:00 PM EDT Office Visit [address] [place] [address] Viki Thompson MD Type 2 diabetes mellitus with hyperglycemia, without long-term current use of insulin (Primary Dx); Essential hypertension; Class 1 obesity; Pure hypercholesterolemia 05/18/2025 Refill [facility] [address] [place] [address] Viki Thompson MD Med Change Request 05/14/2025 Refill [facility] [address] [place] [address] Viki Thompson MD Medication Refill 05/13/2025 Telephone [facility] Internal Medicine [address] [place] [address] Jewel Nuñez MD No Show (4:30 appt) 04/16/2025 11:30 AM EDT Office Visit [facility] Internal Medicine [address] [place] [address] Jewel Nuñez MD Type 2 diabetes mellitus without complication, without long-term current use of insulin (Primary Dx); Cellulitis of toe of right foot; Need for pneumococcal 20-valent conjugate vaccination from Last 3 Months Immunizations Immunization Administration Dates Next Due COVID-19 (Pre-09/03) Moderna Vaccine, mRNA, PF 0 04/12/2021,03/15/2021 Influenza Quadrivalent [facility] Preservative Free IM 09/04/2017 Influenza Quadrivalent w/ Preservative IM 2014 Influenza Trivalent [facility] Preservative Free IM Influenza trivalent preservative free intraderma l 08/12/2013 Influenza, Unspecified Formulation 09/04/2017 Pneumococcal conjugate PCV20 04/16/2025 Pneumococcal polysaccharide PPSV23 08/11/2016 Tdap 06/22/2020,03/12/2009 Zoster recombinant 09/22/2020,06/22/2020 Family History Medical History Relation Comments Atrial fibrillation Brother Cardiovascular disease Father Hypertension Father Stroke Father Arthritis Mother Transient ischemic attack Mother Diabetes Paternal Aunt Diabetes Paternal Grandmother Relation Status Comments Brother Alive Daughter Alive Father Mother Alive Paternal Aunt Paternal Grandmother Social History Tobacco Use Types Packs/Day Years Used Date Smoking Tobacco: Former Cigarettes 1 43 1 976 - 10/25/2018 Smokeless Tobacco: Never Tobacco Cessation:Counseling Given: Not Answered Comments:quit for 6 years and started up again Alcohol Use Standard Drinks/Week [...] on file Sexual Orientation Not on file Last Filed Vital Signs Vital Sign Reading Time Taken Comments Blood Pressure 122/70 06/17/2025 11:22 AM EDT Pulse 101 06/17/2025 11:22 AM EDT Temperature 35.9 C (96.6 F) 06/17/2025 11:22 AM EDT Respiratory Rate 22 06/17/2025 11:2 2 AM EDT Oxygen Saturation 98% 06/17/2025 11: 22 AM EDT Inhaled Oxygen Concentration - - Weight 97.4 kg (214 lb 12.8 oz) 025 11:22 AM EDT Height 174.4 cm (5' 8.66 ) 06/17/2025 1 1:22 AM EDT Body Mass Index 32.03 06/17/2025 11:22 AM EDT Plan of Treatment Upcoming Encounters Date Type Department Care Team (Late st Contact Info) Description 06/17/2025 Procedure Pass [address] [address] 08/08/2025 1:45 PM EDT Appointment [address] [address] Jewel Nuñez MD [address] [place] [address] 09/23/2025 2:00 PM EST Office Visit [facility] Internal Medicine [address] [place] [address] Jewel Nuñez MD [address] [place] [phone] 2:00 PM EST Office Visit [facility] [address] [place] [address] Viki Thompson MD [address] [place] [address], 1[address] [place] [address] [email or web address] Health Maintenance Due Date Last Done Comments COLOGUARD 2003 FIT TEST 2003 FOBT 2003 SIGMOIDOSCOPY 2003 VIRTUAL COLONOSCOPY 2003 LUNG CANCER SCREENING (LDCT Only) 2008 RSV VACCINE (1 - Risk 60-74 years 1-dose series) 2018 DIABETIC EYE EXAM 05/30/2023 05/30/2022, , 02/20/2019 OSTEOPOROSIS SCREENING INITIAL (ONE-TIME) 2023 COLONOSCOPY 10/26/2024 10/26/2023, 10/13, 11/01/2020, Additional history exists COLORECTAL CANCER SCREENING 10/26/2024 INFLUENZA VACCINE (#1) 2025 7, 09/04/2017, 09/27/2015, Additional history exists COVID-19 VACCINE ( season) 2025 04/12/2021, 03/15/2021 HEMOGLOBIN A1C 08/29/2025 05/29/2025, 11/12, 08/06/2023, Additional history exists MAMMOGRAM 09/11/2025 09/11/2023, 08/13, 06/30/2022, Additional history exists DEPRESSION SCREENING 12/16/2025 12/16/2024 BLOOD PRESSURE 12/18/2025 06/17/2025 POTASSIUM LEVEL 03/18/2026 03/18/2025, 01/10, 06/16/2020, Additional history exists CREATININE LEVEL 03/19/2026 03/19/2025, 08/2022, 06/16/2020, Additional history exists Adult Td,Tdap Booster 06/22/2030 06/22/2020, 009 HEPATITIS C SCREENING Completed 03/11/2019 ZOSTER VACCINES Completed 09/22/2020, 06/22/2020 PNEUMOCOCCAL VACCINES (50+ years) Completed 04/16/2025, 08/11/2016 HEPATITIS A VACCINES Aged Out No long er eligible based on patient's age to complete this topic HIB VACCINES Aged Out No longer eligi ble based on patient's age to complete this topic MENINGOCOCCAL VACCINES (ACWY) Aged Out No longer eligible based on patient's age to complete this topic MENINGOCOCCAL VACCINES (B) Aged Out N o longer eligible based on patient's age to complete this topic Medical Devices Not on file Procedures Procedure Name Priority Date/Time Associated Diagnosis Comments POCT HEMOGLOBIN A1C Routine 05/29/2025 2 :03 PM EDT Type 2 diabetes mellitus with hyperglycemia, without long-term current use of insulin OUTSIDE SERUM CREATININE LEVEL Routine 03/19/2025 OUTSIDE POTASSIUM LEVEL Routine 03/18/2025 HM COLONOSCOPY FOR RESULT ENTRY ONLY Routine 10/26/2023 BI MAMMOGRAM SCREENING (BILATERAL) Routine 09/11/2023 12:22 PM EDT Screening mammogram, encounter for DIABETES EYE EXAM FOR RESULT ENTRY ONLY Routine 05/30/2022 HEPATITIS C ANTIBODY, QUALITATIVE Routine 03/11/2019 12:47 PM EDT Need for hepatitis C screening test from Last 3 Months or Most Recently Relevant to Health Maintenance Results * (ABNORMAL) POCT Hemoglobin A1c (05/29/2025 2:03 PM EDT) Hemoglobin A1c 12.3(A) 4.2 - 5.6 % [facility] Other 05/29/2025 2:03 PM EDT Viki Thompson MD POINT OF CARE TEST ORDERABLES F inal Result [facility] [address] [place] [address], [facility] * (ABNORMAL) Outside Serum Creatinine Level (03/19/2025) Creatinine, serum - External 0.73(A) 0.8 - 1.3 mg/dL us Historical Provider LAB BLOOD ORDERABLES Cha l Result * Outside Potassium Level (03/18/2025) Potassium level - External 4.0 3.4 - 5.0 mmol/L Result [facility] Provider LAB BLOOD ORDERABLES Cha l Result * HM COLONOSCOPY FOR RESULT ENTRY ONLY (10/26/2023) Colonoscopy 5 year recall EXTERNAL NON-INTERFACE D REF LAB Result [facility] Provider HEALTH MAINTENANCE Final Result Performing Organization Address [facility]/ZIP Co de Phone Number EXTERNAL NON-INTERFACED REF LAB * MAMMOGRAPHY FOR RESULT ENTRY ONLY (09/02/2022) Result [facility] Provider HEALTH MAINTENANCE Edited Result - Final * DIABETES EYE EXAM FOR RESULT ENTRY ONLY (05/30/2022) Result [facility] Provider HEALTH MAINTENANCE Edited Result - Final * Hepatitis C antibody, qualitative (03/11/2019 12:47 PM EDT) HCV Negative Negative [facility] Comment: This is a screening test and should be confirmed with molecular testing Blood 03/11/2019 12:4 7 PM EDT 03/11/2019 8:10 PM EDT Result [facility] Jewel Nuñez MD LAB BLOOD ORDERABLES Final Re sult Performing Organization Address City/[facility]/ZIP Co de Phone Number [facility] [address] [place] [address] from Last 3 Months or Most Recently Relevant to Health Maintenance Insurance MEDICARE PART A & B [facility] MEDICARE SUPPLEMENT MEDICARE PART A & B [facility] MEDICARE SUPPLEMENT MEDICARE PART A & B [email or web address] MEDICARE SUPPLEMENT MEDICARE PART A & B [employer] MEDICARE SUPPLEMENT MEDICARE PART A & B Member Subscriber Plan / Payer (Ef fective 2023-Present) Name:Jada Zelaya Member ID:[id number] Relation to Subscriber:Self Name:Jada Zelaya Subscriber ID:[id number] Payer ID:[id number] Group ID:Not on file Type:Medicare Address: [facility] [address] [facility] EXTENSION MEDICARE SUPPLEMENT MEDICARE PART A & B [facility] [employer] MEDICARE SUPPLEMENT Care Teams Vice President Industrial Relations Relationship Specialty Start Date End Date Jewel Nuñez MD [address] [place] [id number] [email or web address] PCP - General 08/30/17 Edgard Hallman MD [address] [place] [address] [address] [place] [address] Ophthalmology 06/22/20 Mike Fontenot MD [address] [place] [address] [place] [address] Cardiology 06/22/20 Nahomy Hurst MD [address] [place] [phone] [email or web address] Hematology and Oncology 06/24/20 Jean Carlos Martínez MD [address] [place] [address] [place] [address] Gastroenterology 12/23/20 Additional Source Comments The information contained in this document represents components of the legal health record. It is not the complete legal health record.[facility]
--- OUTSIDE RECORDS SUMMARY | 2025-07-15 11:31 | XMS_ITS | Patient Health Record ---
Author Organization [facility] Address [address] [place] [address] Care Team Providers Care Gas Analyst Name Role Phone Jewel Nuñez MD Primary Care Provider Jean Carlos Meadows Unavailable [phone] Freda Patel Unavailable Unavailable Allergies Allergen (clinical [...] 20 MG TAKE 1 CAPSULE BY MO [facility] EVERY DAY for 90 Active Warfarin Sodium [...] Problem Status W/U Status Risk Notes Problem 044564539 Encounter for screening for malignant neoplasm of colon (Z12.11) Active confirmed Problem 340793540 History of adenomatous polyp of colon (Z86.010) Active confirmed Problem 100437529 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 Problem Information temporarily unavailable Diverticulosis of large intestine without perforation or abscess without bleeding (K57.30) Active confirmed Problem Information temporarily unavailable Gastroesophageal reflux disease (K21.9) Active confirmed Problem 712144589 Gastroesophageal reflux disease without esophagitis (K21.9) Active confirmed Problem 510776900 Tubular adenoma of colon (D12.6) Active confirmed Problem 285215377 Gastroesophageal reflux disease, esophagitis presence not specified (K21.9) Active confirmed Problem Information temporarily unavailable Gastritis (K29.70) Active confirmed Problem Information temporarily unavailable 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
--- OUTSIDE RECORDS SUMMARY | 2025-07-15 11:31 | XMS_ITS | Clinical Summary ---
Author Organization [facility] Address [address] [place] [address] Care Team Providers Care Chief Operating Officer Name Role Phone Unavailable Primary Care Provider [...] Health Screening 10/15/2022 Falls Risk Assessment 2023 Breast Cancer Screening 09/03/2024 09/03/20, 09/26/2020, 06/15/2019, Additional history exists Depression Screening 11/12/2024 COVID-19 Vaccine ( season) 2025 Influenza Vaccine (#1) 2025 Osteoporosis Screening (Bone [...] Procedure Name Priority Date/Time Associated Diagnosis Comments [facility] SCREENING DIGITAL Routine 09/03/2022 8:59 AM EDT Encounter for screening mammogram for malignant neoplasm of breast [facility] DEXA AXIAL SKELETON Routine 12/20/2020 3:43 PM EST Encounter for screening for osteoporosis from Last 3 Months or Most Recently Relevant to Health Maintenance Results * [facility] SCREENING DIGITAL (09/03/2022 8:59 AM EDT) Anatomical Region Laterality Modality Mammography 08/31/2022 10:1 7 AM EDT Narrative 09/03/2022 8:59 AM EDT Diagnostic Imaging Department [address] [place] [address] Patient: TAVOSarbjitTIBURCIO /Age/Sex: 1960 - 61 - F Unit#: [id number] Location/Status: SPDIMAM/PRE CLI Mnemonic/Ordering Site: [facility] Ordering Physician: JEWEL NUÑEZ MD [facility] Screening Digital - 09/02/22 - 1004 EXAM: [facility] Screening Digital EXAM DATE AND TIME: 09/02/2022 10:04 AM HISTORY: Annual screening mammography. Limited mobility of the right shoulder due to injury. COMPARISON: 09/25/2020 through 12/31/2015. TECHNIQUE: CC and MLO views of both breasts were obtained using full field digital mammography. Bilateral digital breast tomosynthesis was performed in the MLO projection. 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 TISSUE DENSITY: a. The breasts [...] Routine screening mammogram BILATERAL in 1 year. [address], [address] 3342F, 7025F Dictating Physician: AMARILIS PRESTON MD Electronically Signed by: AMARILIS PRESTON MD Dic Date/Time: 09/03/2256 Sign date/Time: 09/03/2259 Procedure Note Lisa Preston MD - 11/01/2022 Diagnostic Imaging Department [address] [place] [address] Patient: TAVOSarbjitTIBURCIO/Age/Sex: 1960 - 61 - F Unit#: [id number] Location/Status: SPDIMAM/PRE CLI Mnemonic/Ordering Site: [facility] Ordering Physician: JEWEL NUÑEZ MD [facility] Screening Digital - 09/02/22 - 1004 EXAM: [facility] Screening Digital EXAM DATE AND TIME: 09/02/2022 10:04 AM HISTORY: Annual screening mammography. Limited mobility of the rightshoulder due to injury. COMPARISON: 09/25/2020 through 12/31/2015. TECHNIQUE: CC and MLO views of both breasts were obtained using fullfield digital mammography. Bilateral digital breast tomosynthesis was performedin the MLO projection. 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 TISSUE DENSITY: a. The breasts are [...] Routine screening mammogram BILATERAL in 1 year. [address], 80504 3342F, 7025F Dictating Physician: AMARILIS PRESTON MD Electronically Signed by: AMARILIS PRESTON MD Dic Date/Time: 09/03/2256 Sign date/Time: 09/03/2259 Jewel Nuñez MD IMG BI PROCEDURES Final Result * [facility] DEXA AXIAL SKELETON (12/20/2020 3:43 PM EST) Anatomical Region Laterality Modality Mammography 12/20/2020 2:40 PM EST Narrative 12/20/2020 3:43 PM EST Diagnostic Imaging Department [address] [place] [id number] Patient: TIBURCIO ZELAYA Malorie Staton/Age/Sex: 1960 - 60 - F Unit#: [id number] Location/Status: SPDIMA/REG CLI Mnemonic/Ordering Site: [facility] Ordering Physician: ENEIDA PAYAN [employer] TECHNICIAN Rangel Dexa Axial Skeleton - 12/20/20 - [...] probability of hip fracture of 0.7%. Code 21146 Dictating Physician: TERRIE MARIA MD Electronically Signed by: TERRIE MARIA MD Dic Date/Time: 12/20/201541 Sign date/Time: 02/08/21 1543 Procedure Note Terrie Maria MD - 10/31/2022 Diagnostic Imaging Department [address] [place] [id number] Patient: KRYSTIBURCIOJOANNE Siddiqui./Age/Sex: 1960 - 60 - F Unit#: [id number] Location/Status: [facility] CLI Mnemonic/[facility] Ordering Physician: ENEIDA PAYAN AUTOCAD TECHNICIAN Rangel Dexa Axial Skeleton - 12/20/201531 HISTORY: [...] density of the femurs bilaterally is 0.972 gm/ea1xbqqc is 96% of that of young normals [...] probability of hip fracture of 0.7%. Code 64721 Dictating Physician: TERRIE MARIA MD Electronically Signed by: TERRIE MARIA MD Dic Date/Time: 12/20/20 1542 Sign date/Time: 12/20/20 1543 Eneida Payan NP IM BI PROCEDURES Final Resul t from Last 3 Months or Most Recently Relevant to Health Maintenance
== END 2025-07-15 10:40 | disposition home or self-care (01) ==
LOC: HO.ACS 10:01
PROVIDERS: PCP Internal Medicine; Visit Provider Internal Medicine Medical Oncology
DX: Z79.01 Long term (current) use of anticoagulants (principal)

== ENCOUNTER → 2025-07-15 10:01 | Outpatient (BNVA) | payer MEDICARE, OTHER, SELFPAY | PROVIDERS: PCP Internal Medicine; Visit Provider Internal Medicine Medical Oncology | DX: Z51.81 Encounter for therapeutic drug level monitoring (principal); Z79.01 Long term (current) use of anticoagulants | CPT/HCPCS: 85610; 99211 ==

== ENCOUNTER → 2025-07-27 08:57 | Outpatient (BNV) | payer MEDICARE, OTHER, SELFPAY | PROVIDERS: PCP Internal Medicine; Visit Provider Surgery Vascular Surgery | DX: I73.9 Peripheral vascular disease, unspecified (principal) | CPT/HCPCS: 28810; 99024; G0180 ==

== ENCOUNTER 2025-07-27 12:05 | Inpatient (IN) | payer MEDICARE, OTHER, SELFPAY ==
--- OUTSIDE RECORDS SUMMARY | 2025-07-01 09:04 | XMS_ITS | Patient Health Record ---
Author Organization [facility] Address [address] [place] [address] Care Team Providers Care Correction Lieutenant Name Role Phone Jewel Nuñez MD Primary Care Provider Jean Carlos Meadows Unavailable [phone] Freda Patel Unavailable Unavailable Allergies Allergen (clinical [...] Problem Status W/U Status Risk Notes Problem 303494012 Encounter for screening for malignant neoplasm of colon (Z12.11) Active confirmed Problem 868540987 History of adenomatous polyp of colon (Z86.010) Active confirmed Problem 044127052 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 Problem Diverticular disease of colon (138505870) Diverticulosis of large intestine without perforation or abscess without bleeding (K57.30) Active confirmed Problem Gastroesophageal reflux disease (K21.9) Active confirmed Problem 788583078 Gastroesophageal reflux disease without esophagitis (K21.9) Active confirmed Problem 475437555 Tubular adenoma of colon (D12.6) Active confirmed Problem 772144690 Gastroesophageal reflux disease, esophagitis presence not specified (K21.9) Active confirmed Problem Gastritis (2454175) Gastritis (K29.70) Active confirmed Problem Mccormack esophagus (639886573) 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 Plan Of Treatment Future Test Test Name Order Date COLONOSCOPY 11/27/2012 UPPER GI ENDOSCOPY 09/02/2019 COLONOSCOPY 09/02/2019 COLONOSCOPY 03/30/2020 UPPER GI ENDOSCOPY 07/19/2023 COLONOSCOPY 07/19/2023 Insurance Providers Payer Name Payer Address Payer Phone Subscriber Number Group Number Insured Name Patient Relationship to Insured Coverage Start Date Coverage End Date [facility] [address] [place] [address] [id number] TIBURCIO MARCANO Self - patient is the insured Medical (General) History Medical History History ICD Code HTN Denies NM,CVA,Lung disease,renal disease Polycythemia vera since 2010-gets a [...]
--- OUTSIDE RECORDS SUMMARY | 2025-07-01 09:04 | XMS_ITS | Encounter Summary ---
Author Organization [facility] Address [address] [facility] [address] [place] [address] Phone Care Team Providers Care Inspector Hairspring Name Role Phone Jewel Nuñez MD Primary Care Provider [phone] Edgard Hallman MD Unavailable [phone] Mike Fontenot MD Unavailable [phone] Nahomy Hurst MD Unavailable [phone] Jean Carlos Martínez MD Unavailable Reason for Visit * Reason Onset Date Comments No Show 05/13/2025 4:30 appt Encounter Details Date Type Department Care Team (Late st Contact Info) Description 05/13/2025 Telephone [employer] [facility] [employer] Internal Medicine [address] [place], [place] [phone] Jewel Nuñez MD [address] [place], [place] [phone] [email or web address] No Show (4:30 appt) Social History Tobacco [...] can cancel appointments anytime through your Patient [place]. We appreciate your understanding. Required Scripting for [...] can cancel appointments anytime through your Patient [place]. documented in this encounter Plan of Treatment Upcoming Encounters Date Type Department Care Team (Late st Contact Info) Description 06/17/2025 Procedure Pass [facility], Ct Scan - [facility] [address] [place] [address] 08/08/2025 1:45 PM EDT Appointment [facility], Ct Scan - [facility] [address] [place] [address] Jewel Nuñez MD [address] [place] [address] 09/23/2025 2:00 PM EST Office Visit [facility] Internal Medicine [address] [place] [address] Jewel Nuñez MD [address] [place] [address] 2025 2:00 PM EST Office Visit [facility] [address] [place] [address] Viki Thompson MD [address] [facility], [address] [place] [address] documented as of this encounter Visit Diagnoses Not on filedocumented in this encounter Additional Health Concerns Assessment Noted Time PHQ-2 Depression Total Score: 0 12/16/19 25 1:14 PM EST documented as of this encounter Care Teams Inspector Hairspring Relationship Specialty Start Date End Date Jewel Nuñez MD [address] [place] [address] PCP - General 08/30/17 Edgard Hallman MD [address] [place] [address] Dr [place] [phone] Ophthalmology 06/22/20 Mike Fontenot MD [address] [place] [place] [address] Dr Gaston [place] [phone] Cardiology 06/22/20 Nahomy Hurst MD [address] [place] [address] [email or web address] Hematology and Oncology 06/24/20 Jean Carlos Martínez MD [address] [place] [address] [place] [address] Gastroenterology 12/23/20 documented as of this encounter Additional Source Comments The information contained in this document represents components of the legal health record. It is not the complete legal health record.[facility]
--- OUTSIDE RECORDS SUMMARY | 2025-07-01 09:05 | XMS_ITS | Clinical Summary ---
Author Organization [facility] Address [address] [place] [address] Care Team Providers Care Audit Spec Name Role Phone Unavailable Primary Care Provider [...] 09/03/2024 09/03/20, 09/26/2020, 06/15/2019, Additional history exists Depression Screening [...] Procedure Name Priority Date/Time Associated Diagnosis Comments [facility] SCREENING DIGITAL Routine 09/03/2022 8:59 AM EDT Encounter for screening mammogram for malignant neoplasm of breast [facility] DEXA AXIAL SKELETON Routine 12/20/2020 3:43 PM EST Encounter for screening for osteoporosis from Last 3 Months or Most Recently Relevant to Health Maintenance Results * [facility] SCREENING DIGITAL (09/03/2022 8:59 AM EDT) Anatomical Region Laterality Modality Mammography 08/31/2022 10:1 7 AM EDT Narrative 09/03/2022 8:59 AM EDT Diagnostic Imaging Department [address] [place] [address] Patient: TAVOSarbjitTIBURCIO /Age/Sex: 1960 - 61 - F Unit#: [id number] Location/Status: SPDIMAM/PRE CLI Mnemonic/Ordering Site: [facility] Ordering Physician: JEWEL NUÑEZ MD [facility] Screening Digital - 09/02/22 - 1004 EXAM: [facility] Screening Digital EXAM DATE AND TIME: 09/02/2022 10:04 AM HISTORY: Annual screening mammography. Limited mobility of the right shoulder due to injury. COMPARISON: 09/25/2020 through 12/31/2015. TECHNIQUE: CC and MLO views of both breasts were obtained using full field digital mammography. Bilateral digital breast tomosynthesis was performed in the MLO projection. 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 TISSUE DENSITY: a. The breasts [...] Routine screening mammogram BILATERAL in 1 year. 79884, 01742 3342F, 7025F Dictating Physician: AMARILIS PRESTON MD Electronically Signed by: AMARILIS PRESTON MD Dic Date/Time: 09/03/2256 Sign date/Time: 09/03/2259 Procedure Note Lisa Preston MD - 11/01/2022 Diagnostic Imaging Department [address] [place] [address] Patient: TAVOSarbjitTIBURCIO/Age/Sex: 1960 - 61 - F Unit#: [id number] Location/Status: SPDIMAM/PRE CLI Mnemonic/Ordering Site: [facility] Ordering Physician: JEWEL NUÑEZ MD [facility] Screening Digital - 09/02/22 - 1004 EXAM: [facility] Screening Digital EXAM DATE AND TIME: 09/02/2022 10:04 AM HISTORY: Annual screening mammography. Limited mobility of the rightshoulder due to injury. COMPARISON: 09/25/2020 through 12/31/2015. TECHNIQUE: CC and MLO views of both breasts were obtained using fullfield digital mammography. Bilateral digital breast tomosynthesis was performedin the MLO projection. Computer aided detection with the [employer] Gl[employer] employed. TISSUE DENSITY: a. The breasts are [...] Routine screening mammogram BILATERAL in 1 year. 24497, 46873 3342F, 7025F Dictating Physician: AMARILIS PRESTON MD Electronically Signed by: AMARILIS PRESTON MD Dic Date/Time: 09/03/2256 Sign date/Time: 09/03/2259 Jewel Nuñez MD IMG BI PROCEDURES Final Result * [facility] DEXA AXIAL SKELETON (12/20/2020 3:43 PM EST) Anatomical Region Laterality Modality Mammography 12/20/2020 2:40 PM EST Narrative 12/20/2020 3:43 PM EST Diagnostic Imaging Department [address] [place] [address] Patient: TIBURCIO ZELAYA Malorie Staton/Age/Sex: 1960 - 60 - F Unit#: [id number] Location/Status: SPDIMA/REG CLI Mnemonic/Ordering Site: [facility] Ordering Physician: ENEIDA PAYAN SENIOR HR MANAGER [facility] Dexa Axial Skeleton - 12/20/20 - [...] probability of hip fracture of 0.7%. Code 65396 Dictating Physician: TERRIE MARIA MD Electronically Signed by: TERRIE MARIA MD Dic Date/Time: 12/20/201541 Sign date/Time: 02/08/21 1543 Procedure Note Terrie Maria MD - 10/31/2022 Diagnostic Imaging Department [address] [place] [address] [id number] Patient: KRYSTIBURCIOJOANNE Siddiqui./Age/Sex: 1960 - 60 - F Unit#: [id number] Location/Status: [facility] CLI Mnemonic[facility] Ordering Physician: ENEIDA PAYAN SENIOR HR MANAGER [place] Dexa Axial Skeleton - 12/20/201531 HISTORY: [...] density of the femurs bilaterally is 0.972 gm/xs7locph is 96% of that of young normals [...] probability of hip fracture of 0.7%. Code 61958 Dictating Physician: TERRIE MARIA MD Electronically Signed by: TERRIE MARIA MD Dic Date/Time: 12/20/20 1542 Sign date/Time: 12/20/20 1543 Eneida Payan NP IM BI PROCEDURES Final Resul t from Last 3 Months or Most Recently Relevant to Health Maintenance
[2025-07-23 15:10] VITALS: BMI 32.2
[2025-07-27] VITALS (13 sets, daily range): BP systolic 91–151; BP diastolic 39–81; PULSE 78–100; RESP 16–18; TEMP 36.4–36.7; O2SAT 95–98; BMI 31.5
--- NOTE | 2025-07-27 07:22 | MHC.SHP ---
Pre-Procedural Eval Section A - 24 Hr Update-Section A only Date of Service: 07/27/25 The patient is an INPATIENT: No Changes since office visit: Yes Patient answered all questions The patient has been examined within 24 hours of the surgical procedure. The History & Physical has been completed within 30 days and I have reviewed it.: Yes Section B - Complete if H&P > 30 days Chief Complaint: Peripheral vascular disease, unspecified Allergies: Allergies Allergy/AdvReac Type Severity Reaction Status Date / Time droperidol (From INAPSINE) Allergy Severe Anaphylaxis Verified 07/15/25 10:08 egg (EGG) Allergy Severe Nausea and Verified 07/15/25 10:08 Vomiting latex (LATEX) Allergy Severe HIVES Verified 07/15/25 10:08 metformin (METFORMIN) Allergy Severe DIZZINESS Verified 07/15/25 10:08 AND NAUSEA penicillin V Allergy Severe RASH Verified 07/15/25 10:08 codeine (CODEINE) Allergy Intermediate Rash Verified 07/15/25 10:08 Hydrocodone Bitartrate Allergy Intermediate Rash Uncoded 07/15/25 10:08 Plan I have reviewed the history and physical and performed a pertinent physical examination on my patient. No changes have occurred unless specified. Time Spent With Patient Time: Total time managing care of this patient today ____ minutes.
[2025-07-27] MEDS: Lactated Ringers 1,000 ML 100 ML IVCONT (09:50)
--- NOTE | 2025-07-27 09:58 | PC.NURSE ---
Patient states she at [email or web address] last night for dinner. Has not taken her DM medications due to scheduled surgery. Anesthesiologist and Dr. Adams made aware of glucose reading of 403. Awaiting new orders and or plan of care.
[2025-07-27 09:59] LABS: Hematocrit 45.1 % (37.0-47.0); Hemoglobin 15.3 g/dl (12.0-16.0); Mean Corpuscular HGB Conc 33.9 g/dl (31.0-35.0); Mean Corpuscular Hemoglobin 29.8 pg (27.0-33.0); Mean Corpuscular Volume 87.9 fL (80.0-98.0); NRBC Abs Auto 0.000 X10*3/uL (0.0-0.012); NRBC Pct Auto 0.0 /100WBC (0.0-0.2); Platelet Count 275 X10*3/uL (160-400); Red Blood Count 5.13 X10*6/uL (4.20-5.50); White Blood Count 12.2 X10*3/uL (4.8-10.8)
[2025-07-27 10:06] LABS: INTERNATIONAL NORM RATIO 1.1 (0.9-1.1); Prothrombin Time 13.0 SEC (10.9-12.4)
[2025-07-27 10:25] LABS: Anion Gap 14 (12-20); Blood Urea Nitrogen 18 mg/dL (9-16); Calcium 9.5 mg/dL (8.4-10.2); Carbon Dioxide 21 mmol/L (22-29); Chloride 109 mmol/L (96-108); Creatinine Clr Calc Pharmacy 109.7; Estimated Glomerular Filt Rate > 60; Potassium 4.4 mmol/L (3.3-5.1); Sodium 140 mmol/L (135-145)
--- NOTE | 2025-07-27 10:50 | HO.ANESPROP2 ---
Documented by User: Rica Leyva NP 07/23/25 10:30 HPI - Anesthesia Eval Consult details Narrative: 64yo F for Right 2nd Toe Amputation Follows [facility] Heme Coumadin for recurrent DVT since 2010 Polycythemia with previous therapeutic phlebs. Last on record at [facility] 2021 Chronic LBBB Anesthesia Pre-Procedure Meds Is the patient on any of the following meds?: GLP1/DPP4 and SGLT2 Inhib PMFSH Active Problems Active Problems: All Active Problems PAD (peripheral artery disease) (Acute) Polycythemia (Chronic) Past Medical History Medical History LBBB (left bundle branch block) Hx of drainage of abscess DVT (deep venous thrombosis) Arthritis Low back pain Diabetes Elevated cholesterol Colon polyps Mccormack esophagus Bronchial asthma HTN (hypertension) Polycythemia Current use of anticoagulant therapy Family History Family History Father Heart disease Afib Heart attack Maternal Grandmother Lung cancer Maternal Grandfather Prostate CA Paternal Grandmother Heart attack Paternal Grandfather Heart attack Family history of problems with anesthesia: No Surgical History Surgical History S/P aortogram History of esophagogastroduodenoscopy (EGD) Previous back surgery Hx of colonoscopy History of hysterectomy History of delivery History of appendectomy History of cholecystectomy History of Problems with Anesthesia: No Social History Social History Household Members: Spouse Housing: Apartment Are you a primary rn intensive care unit to a significant other at home: No Do you presently have visiting nurse or other home services: No Alcohol intake: former Patient Tobacco Use Status: Former Tobacco user Tobacco use type: Cigarette Cigarette Packs Per Day: 1 Years Smoked: 25 Smoked in Last 30 Days: No Use of substances other than those prescribed or required for medical reasons: Yes Substance Use Type: Marijuana Substance Use Type Other:: gummies Substance Use Frequency: Occasionally Have you been hit, kicked, punched, or otherwise hurt by someone within the past year? If so, by whom?: No Are you DNR?: No Advance Directives: No Advance Directives Information Provided: Yes service: No Current occupational status: retired Meds Allergies Allergy/AdvReac Type Severity Reaction Status Date / Time droperidol (From INAPSINE) Allergy Severe Anaphylaxis Verified 07/27/25 09:20 egg (EGG) Allergy Severe Nausea and Verified 07/27/25 09:20 Vomiting latex (LATEX) Allergy Severe HIVES Verified 07/27/25 09:20 metformin (METFORMIN) Allergy Severe DIZZINESS Verified 07/27/25 09:20 AND NAUSEA penicillin V Allergy Severe RASH Verified 07/27/25 09:20 codeine (CODEINE) Allergy Intermediate Rash Verified 07/27/25 09:20 Hydrocodone Bitartrate Allergy Intermediate Rash Uncoded 07/27/25 09:20 Home Medications ?Medication ?Instructions ?Recorded ?Confirmed ?Last Taken ?Type celecoxib 200 mg capsule 200 cap PO BID 10/25/20 07/27/25 07/26/25 History cholecalciferol (vitamin D3) 50 50 mcg PO DAILY 10/25/20 07/27/25 03/17/25 History mcg (2,000 unit) capsule (Vitamin D3) omeprazole 20 mg capsule,delayed 20 mg PO DAILY@0630 10/25/20 07/27/25 07/27/25 09:15 History release blood sugar diagnostic #10 ea 11/08/20 07/27/25 Unknown History atorvastatin 40 mg tablet 40 mg PO BEDTIME 12/09/20 07/27/25 03/16/25 History empagliflozin 25 mg tablet 25 mg PO DAILY 12/09/20 07/27/25 07/23/25 History loratadine 10 mg tablet (Claritin) 10 mg PO DAILY 08/29/23 07/27/25 03/17/25 History lisinopril 5 mg tablet 5 mg PO BEDTIME 09/26/23 07/27/25 03/16/25 History warfarin 5 mg tablet 5 mg PO SuMoWeFr@1800 03/17/25 07/27/25 07/23/25 History warfarin 5 mg tablet 7.5 mg PO TUTHSA@1800 03/17/25 07/27/25 07/23/25 History fluticasone propionate 50 1 spray intranasal DAILY 04/21/25 07/27/25 Unknown History mcg/actuation nasal spray,suspension tirzepatide 7.5 mg/0.5 mL 7.5 mg subcut QWEEK 06/25/25 07/27/25 07/18/25 History subcutaneous pen injector (Mounjaro) Exam Pertinent Lab Results Pertinent Lab Results: Laboratory Tests 03/18/25 04/29/25 05:12 06:38 WBC 11.1 H Hgb 16.4 H Hct 48.0 H Plt Count 223 Sodium 140 Potassium 4.0 Chloride 109 H Carbon Dioxide 21 L BUN 16 Creatinine 0.62 Assessment and Plan Assessment Anesthesia Assessment: Chart Reviewed Final Anesthetic Review Family History of Problems with Anesthesia: No History of Problems with Anesthesia: No Documented by User: Marissa Hagen DO 07/27/25 11:33 HPI - Anesthesia Eval Consult details Narrative: 64yo F for Right 2nd Toe Amputation Follows [facility] Heme Coumadin for recurrent DVT since 2010 Polycythemia with previous therapeutic phlebs. Last on record at [facility] 2021 Chronic LBBB Blood glucose above 400 today. Insulin ordered for pre-op RN to administer. Dr. Adams discussed with patient regarding admitting her after surgery for better glucose control. Patient agreeable to plan. Reported that she does not check her blood sugar at home. Anesthesia Pre-Procedure Meds Is the patient on any of the following meds?: GLP1/DPP4 and SGLT2 Inhib PMFSH Past Medical History Medical History LBBB (left bundle branch block) Hx of drainage of abscess DVT (deep venous thrombosis) Arthritis Low back pain Diabetes Elevated cholesterol Colon polyps Mccormack esophagus Bronchial asthma HTN (hypertension) Polycythemia Current use of anticoagulant therapy Family History Family History Father Heart disease Afib Heart attack Maternal Grandmother Lung cancer Maternal Grandfather Prostate CA Paternal Grandmother Heart attack Paternal Grandfather Heart attack Family history of problems with anesthesia: No Surgical History Surgical History S/P aortogram History of esophagogastroduodenoscopy (EGD) Previous back surgery Hx of colonoscopy History of hysterectomy History of delivery History of appendectomy History of cholecystectomy History of Problems with Anesthesia: No Social History Social History Household Members: Spouse Housing: Apartment Are you a primary rn intensive care unit to a significant other at home: No Do you presently have visiting nurse or other home services: No Alcohol intake: former Patient Tobacco Use Status: Former Tobacco user Tobacco use type: Cigarette Cigarette Packs Per Day: 1 Years Smoked: 25 Smoked in Last 30 Days: No Use of substances other than those prescribed or required for medical reasons: Yes Substance Use Type: Marijuana Substance Use Type Other:: gummies Substance Use Frequency: Occasionally Have you been hit, kicked, punched, or otherwise hurt by someone within the past year? If so, by whom?: No Are you DNR?: No Advance Directives: No Advance Directives Information Provided: Yes service: No Current occupational status: retired Meds Allergies Allergy/AdvReac Type Severity Reaction Status Date / Time droperidol (From INAPSINE) Allergy Severe Anaphylaxis Verified 07/27/25 09:20 egg (EGG) Allergy Severe Nausea and Verified 07/27/25 09:20 Vomiting latex (LATEX) Allergy Severe HIVES Verified 07/27/25 09:20 metformin (METFORMIN) Allergy Severe DIZZINESS Verified 07/27/25 09:20 AND NAUSEA penicillin V Allergy Severe RASH Verified 07/27/25 09:20 codeine (CODEINE) Allergy Intermediate Rash Verified 07/27/25 09:20 Hydrocodone Bitartrate Allergy Intermediate Rash Uncoded 07/27/25 09:20 Home Medications ?Medication ?Instructions ?Recorded ?Confirmed ?Last Taken ?Type celecoxib 200 mg capsule 200 cap PO BID 10/25/20 07/27/25 07/26/25 History cholecalciferol (vitamin D3) 50 50 mcg PO DAILY 10/25/20 07/27/25 03/17/25 History mcg (2,000 unit) capsule (Vitamin D3) omeprazole 20 mg capsule,delayed 20 mg PO DAILY@0630 10/25/20 07/27/25 07/27/25 09:15 History release blood sugar diagnostic #10 ea 11/08/20 07/27/25 Unknown History atorvastatin 40 mg tablet 40 mg PO BEDTIME 12/09/20 07/27/25 03/16/25 History empagliflozin 25 mg tablet 25 mg PO DAILY 12/09/20 07/27/25 07/23/25 History loratadine 10 mg tablet (Claritin) 10 mg PO DAILY 08/29/23 07/27/25 03/17/25 History lisinopril 5 mg tablet 5 mg PO BEDTIME 09/26/23 07/27/25 03/16/25 History warfarin 5 mg tablet 5 mg PO SuMoWeFr@1800 03/17/25 07/27/25 07/23/25 History warfarin 5 mg tablet 7.5 mg PO TUTHSA@1800 03/17/25 07/27/25 07/23/25 History fluticasone propionate 50 1 spray intranasal DAILY 04/21/25 07/27/25 Unknown History mcg/actuation nasal spray,suspension tirzepatide 7.5 mg/0.5 mL 7.5 mg subcut QWEEK 06/25/25 07/27/25 07/18/25 History subcutaneous pen injector (Festus) Exam Exam Date and Time: 07/27/25 1055 Height,Weight and Vital Signs: Height 5 ft 8.66 in Weight 95.8 kg Vital Signs Temperature 98.1 F 07/27/25 09:31 Pulse Rate 100 07/27/25 09:31 Respiratory Rate 17 07/27/25 09:31 Blood Pressure 130/81 07/27/25 09:31 Pulse Oximetry 97 07/27/25 09:31 Oxygen Delivery Method Room Air 07/27/25 09:31 Temperature 98.1 F 07/27/25 09:31 Pulse Rate 100 07/27/25 09:31 Respiratory Rate 17 07/27/25 09:31 Blood Pressure 130/81 07/27/25 09:31 Pulse Oximetry 97 07/27/25 09:31 Oxygen Delivery Method Room Air 07/27/25 09:31 Airway Mallampati Class: II TM Dist: >3cm Neck ROM: Limited Loose/Missing/Broken Teeth: Yes (edentulous) Heart: S1S2 Lungs: CTAB Assessment and Plan Assessment Anesthesia Assessment: Anesthesia Plan Discussed and Chart Reviewed Final Anesthetic Review Family History of Problems with Anesthesia: No History of Problems with Anesthesia: No NPO: Yes ASA Class: III Final Preanesthetic Review: No Changes in Pt Med Stat, Meds/Allgs Chart Reviewed, Consent Obtained/Reviewed and Anes Risks/Benef Reviewed Patient Risk: Intermediate Procedure Risk: Low Anesthetic Plan Anesthetic Plan: MAC: and Agree w/ Assess. and Plan Disposition: Inp. Admit - Standard Bed (patient will be admitted after surgery for hyperglycemia)
[2025-07-27 11:34] LABS: Glucose, Whole Blood 403 mg/dL (60-115)
--- NOTE | 2025-07-27 12:10 | W.PM.OPN ---
Operative Note Operative Note Date of Service: 07/27/25 Narrative: Operative note by [facility] Preoperative diagnosis: Osteomyelitis and nonhealing ulcer of right 2nd toe Postoperative diagnosis: Same Procedure: Right 2nd toe amputation Surgeon:Hermann Adams M.D. Financial Underwriter: Jamie Anesthesia: Local with sedation performed by Dr. Hagen from anesthesia Specimens: 1 Drains: None Estimated blood loss: Minimal Indications: Pleasant 64-year-old diabetic female who has a longstanding history of nonhealing right 2nd toe. She now presents for amputation. Of note are blood sugar was uncontrolled in over 400 and will be admitted postoperatively.. The patient has signed the informed consent after reviewing risks, complications, benefits, and alternatives previously discussed with the patient. The patient was given the opportunity to ask any additional questions or voice any concerns. All questions were answered to the patient's satisfaction. Procedure in detail: Patient was brought to the operating room right 2nd toe was prepped and draped in the standard surgical fashion. We then infiltrated the area around the right 2nd toe with local and provided a field block. Once this was accomplished we made a curvilinear fishmouth incision of the 2nd toe. We brought this down to the metatarsal head. We removed the toe using electrocautery and was removed in its entirety. Once this was done adequate hemostasis was achieved wound bed was irrigated. Deep layer was reapproximated using 2-0 Polysorb superficial layer with 3-0 Polysorb finally skin with a 3-0 nylon along with skin clips. Xeroform and a sterile dressing were applied. At the end of the case sponge instrument counts were correct. Patient tolerated the procedure well and returned to recovery with stable vitals. This note is constructed using voice recognition software. While every effort has been made to ensure accuracy, air defence officer errors may have been included. Thank you for allowing me to participate in the care of your patient. Yours sincerely, Hermann Adams MD, FACS, R.P.V.I.
--- NOTE | 2025-07-27 12:49 | HO.PM.IMCN ---
History of Present Illness Data of Consult Service Date: 07/27/25 Primary Care Provider: Jewel Nuñez MD HPI 64-year-old woman with osteomyelitis right foot 2nd toe. Admitted by vascular surgery and is status post right 2nd toe amputation. Surgery was unremarkable. Patient's vital signs are stable, labs all within acceptable limits. Patient has been able to drink without any nausea or vomiting. she has a minimal amount of pain . Review of Systems Review of Systems: Denies any recent fever chills or decrease in appetite respiratory denies any shortness of breath or cough cardiovascular denied chest pain gastrointestinal denies any dysphagia abdominal pain nausea vomiting or diarrhea genitourinary denies any dysuria frequency or hematuria musculoskeletal denies any joint pain or swelling neuropsych denies any weakness or seizures all other systems reviewed are negative [facility] Medical History LBBB (left bundle branch block) Hx of drainage of abscess DVT (deep venous thrombosis) Arthritis Low back pain Diabetes Elevated cholesterol Colon polyps Mccormack esophagus Bronchial asthma HTN (hypertension) Polycythemia Current use of anticoagulant therapy Family History Father Heart disease Afib Heart attack Maternal Grandmother Lung cancer Maternal Grandfather Prostate CA Paternal Grandmother Heart attack Paternal Grandfather Heart attack Surgical History S/P aortogram History of esophagogastroduodenoscopy (EGD) Previous back surgery Hx of colonoscopy History of hysterectomy History of delivery History of appendectomy History of cholecystectomy Social History Household Members: Spouse Housing: House Are you a primary home health caregiver to a significant other at home: No Do you presently have visiting nurse or other home services: No Alcohol intake: former Comment: COUNTS CORRECT Patient Tobacco Use Status: Former Tobacco user Tobacco use type: Cigarette Cigarette Packs Per Day: 1 Years Smoked: 25 Smoked in Last 30 Days: No Use of substances other than those prescribed or required for medical reasons: Yes Substance Use Type: Marijuana Substance Use Type Other:: gummies Substance Use Frequency: Occasionally Currently Displaying Signs/Symptoms of Drug Intoxication Withdrawal: No Have you been hit, kicked, punched, or otherwise hurt by someone within the past year? If so, by whom?: No Do you feel safe in your current relationship?: Yes Is there a partner from a previous relationship who is making you feel unsafe now?: No Are you made to feel afraid or neglected: No Are you DNR?: No Advance Directives: No Advance Directives Information Provided: Yes Do you have a plan to hurt others: No Plan Patient : No : No service: No Current occupational status: retired Meds Allergies Allergy/AdvReac Type Severity Reaction Status Date / Time droperidol (From INAPSINE) Allergy Severe Anaphylaxis Verified 07/27/25 09:20 egg (EGG) Allergy Severe Nausea and Verified 07/27/25 09:20 Vomiting latex (LATEX) Allergy Severe HIVES Verified 07/27/25 09:20 metformin (METFORMIN) Allergy Severe DIZZINESS Verified 07/27/25 09:20 AND NAUSEA penicillin V Allergy Severe RASH Verified 07/27/25 09:20 codeine (CODEINE) Allergy Intermediate Rash Verified 07/27/25 09:20 Hydrocodone Bitartrate Allergy Intermediate Rash Uncoded 07/27/25 09:20 Active Medications: Current Medications Acetaminophen (Acetaminophen 325 Mg Tablet) 650 mg PO ONCE PRN PRN Reason: Pain, Mild (Pain Scale 1-3) Stop: 07/27/25 17:28 Acetaminophen (Acetaminophen 325 Mg Tablet) 650 mg PO Q6H PRN PRN Reason: Pain, Mild 1-3,fever,headache Albuterol Sulfate (Albuterol Sulfate (0.083%) 2.5 Mg/3 Ml Vial.Neb) 2.5 mg INHALE ONCE PRN PRN Reason: Shortness of Breath/Wheezing Calcium Carbonate (Calcium Carbonate 750 Mg Tab.Chew) 750 mg PO Q4H PRN PRN Reason: Heartburn Fentanyl (Fentanyl Citrate/Pf 100 Mcg/2 Ml Vial) 50 mcg IVPUSH Q5M PRN PRN Reason: Pain, Moderate to Severe (Pain Scale 4-10) Stop: 07/27/25 17:29 Lactated Ringer's (Lr) 1,000 mls @ 100 mls/hr IVCONT .Q10H [facility] Last Admin: 07/27/25 09:50 Dose: 100 mls/hr Vancomycin HCl 1,500 mg/ (Sodium Chloride) 500 mls @ 333.333 mls/hr IV POSTOP@2200 LEANDER Stop: 07/27/25 23:29 Magnesium Hydroxide (Milk Of Magnesia 30 Ml Oral.Susp) 30 ml PO DAILY PRN PRN Reason: Constipation Melatonin (Melatonin 3 Mg Tablet) 6 mg PO BEDTIME PRN PRN Reason: Insomnia Naloxone HCl (Naloxone Hcl 0.4 Mg/Ml Vial) 0.04 mg IVPUSH Q5M PRN PRN Reason: Excessive sedation or RR < 8 Ondansetron HCl (Ondansetron Hcl 4 Mg/2 Ml Vial) 4 mg IVPUSH ONCE PRN PRN Reason: Nausea and Vomiting Stop: 07/27/25 17:28 Pharmacy Consult (Consult Rx Vancomycin Dosing) 1 each MISCELLANE DAILY PRN PRN Reason: Consult order Sodium Chloride (0.9 % Sodium Chloride Flush 3 Ml Syringe) [facility] Medications ?Medication ?Instructions ?Recorded ?Confirmed ?Last Taken ?Type celecoxib 200 mg capsule 200 mg PO BID 10/25/20 07/27/25 07/26/25 History cholecalciferol (vitamin D3) 50 50 mcg PO DAILY 10/25/20 07/27/25 03/17/25 History mcg (2,000 unit) capsule (Vitamin D3) omeprazole 20 mg capsule,delayed 20 mg PO DAILY@0630 10/25/20 07/27/25 07/27/25 09:15 History release blood sugar diagnostic #10 ea 11/08/20 07/27/25 Unknown History atorvastatin 40 mg tablet 40 mg PO BEDTIME 12/09/20 07/27/25 07/26/25 History empagliflozin 25 mg tablet 25 mg PO DAILY 12/09/20 07/27/25 07/23/25 History loratadine 10 mg tablet (Claritin) 10 mg PO DAILY 08/29/23 07/27/25 03/17/25 History lisinopril 5 mg tablet 5 mg PO BEDTIME 09/26/23 07/27/25 07/27/25 History warfarin 5 mg tablet 5 mg PO SuMoWeFr@1800 03/17/25 07/27/25 07/23/25 History warfarin 5 mg tablet 7.5 mg PO TUTHSA@1800 03/17/25 07/27/25 07/23/25 History fluticasone propionate 50 1 spray intranasal DAILY 04/21/25 07/27/25 07/26/25 History mcg/actuation nasal spray,suspension tirzepatide 7.5 mg/0.5 mL 7.5 mg subcut QWEEK 06/25/25 07/27/25 07/18/25 History subcutaneous pen injector (Jasonunsofyro) Physical Exam Vital Signs and Narrative: Vital Signs: Last Vital Signs Temp 97.5 F 07/27/25 11:48 Pulse 81 07/27/25 12:45 Resp 16 07/27/25 12:45 BP 148/74 H 07/27/25 12:45 Pulse Ox 98 07/27/25 12:45 O2 Del Method Room Air 07/27/25 12:45 BMI result Body Mass Index 31.5 Appearing in no acute distress head is normocephalic atraumatic eyes pupils are PERRLA sclera is anicteric mouth throat mucous membranes are intact and moist neck is supple no lymphadenopathy, no JVD noted lung sounds are clear to auscultation heart regular rate rhythm, clear S1, S2 positive bowel sounds, abdomen is soft, nontender neuro patient is alert x3, no focal deficits Surgical dressing to right foot intact Results Labs 07/28/25 05:18 07/28/25 05:18 Labs: Laboratory Results - last 24 hr 07/27/25 07/27/25 09:54 09:55 MCV 87.9 MCH 29.8 MCHC 33.9 RDW 13.0 Plt Count 275 MPV 9.3 L Absolute Nucleated RBC 0.000 Nucleated RBC % (auto) 0.0 PT 13.0 H D INR 1.1 Anion Gap 14 Estim Creat Clear Calc 109.7 Estimated GFR > 60 POC Glucose 403 H* Random Glucose 442 H* Calcium 9.5 D Assessment and Plan (1) PAD (peripheral artery disease): Status: Acute Plan 64 year old women admitted by vascular surgery and is s/p right 2nd toe amputation Amputation secondary to osteomyelitis and nonhealing ulcer right 2nd toe management as per surgical team DM 2 ss, ada diet Hypertension Stable blood pressure Continue lisinopril Obesity class 1. BMI 31.5 Discussed importance of weight management as this may be contributing to worsening of other comorbidities GERD Continue PPI Hyperlipidemia Statin DVT prophylaxis as per admitting provider Full code
--- NOTE | 2025-07-27 12:53 | PHA.MEDREC ---
Pharmacy Consult ? Medication Reconciliation Pharmacy has completed the medication reconciliation. Reviewed med rec done by nursing in pre-op. matches claims
--- NOTE | 2025-07-27 14:49 | PHA.MEDREC ---
Addendum entered by Carlitos Chamberlain PharmD 07/27/25 15:01: reviewed Original Note: Pharmacy Consult ? Medication Reconciliation Pharmacy has reviewed the medication reconciliation by nursing. Patient was able to confirm all of her medications. Patient confirmed Mounjaro 7.5 mg every Sunday, last dose 07/18/25, Warfarin 7.5 mg Sunday, , Sunday and Warfarin 5 mg Sunday,Sunday, Sunday, and Sunday. Last dose of Warfarin was 07/23/25. patient last had her medications last night.
[2025-07-27 16:15] LABS: Glucose, Whole Blood 255 mg/dL (60-115)
[2025-07-27 20:36] LABS: Glucose, Whole Blood 197 mg/dL (60-115)
[2025-07-27] MEDS: 0.9 % Sodium Chloride Flush 3 ML SYRINGE IVFLUSH (21:11)
[2025-07-28 03:12] VITALS: BP 117/56; PULSE 77; RESP 18; TEMP 36.1; O2SAT 98
[2025-07-28 06:51] LABS: Anion Gap 12 (12-20); Blood Urea Nitrogen 16 mg/dL (9-16); Calcium 8.4 mg/dL (8.4-10.2); Carbon Dioxide 19 mmol/L (22-29); Chloride 111 mmol/L (96-108); Creatinine Clr Calc Pharmacy 126.3; Estimated Glomerular Filt Rate > 60; Potassium 4.1 mmol/L (3.3-5.1); Sodium 138 mmol/L (135-145)
[2025-07-28 07:12] LABS: Hematocrit 37.8 % (37.0-47.0); Hemoglobin 13.2 g/dl (12.0-16.0); Imm Gran Abs Auto 0.03 X10*3/uL (0.00-0.03); Imm Gran Pct Auto 0.5 % (0.0-0.4); Lymphocytes Absolute Auto 1.3 X10*3/uL (1.2-4.9); MANUAL DIFF FLAG SCAN; Mean Corpuscular HGB Conc 34.9 g/dl (31.0-35.0); Mean Corpuscular Hemoglobin 30.2 pg (27.0-33.0); Mean Corpuscular Volume 86.5 fL (80.0-98.0); NRBC Abs Auto 0.000 X10*3/uL (0.0-0.012); NRBC Pct Auto 0.0 /100WBC (0.0-0.2); PLT CLUMP 1; Red Blood Count 4.37 X10*6/uL (4.20-5.50); SCAN SMEAR FLAG 1
[2025-07-28 07:29] VITALS: BP 121/59; PULSE 76; RESP 18; TEMP 36; O2SAT 96
[2025-07-28 07:31] LABS: Glucose, Whole Blood 276 mg/dL (60-115)
[2025-07-28 07:39] LABS: Platelet Count 221 X10*3/uL (160-400); White Blood Count 6.1 X10*3/uL (4.8-10.8)
[2025-07-28] MEDS: 0.9 % Sodium Chloride Flush 3 ML SYRINGE IVFLUSH ×3 (07:54→19:41)
--- NOTE | 2025-07-28 09:51 | HO.POSTANES ---
Post Anesthesia Evaluation Post Anesthesia Evaluation Date of Service: 07/28/25 Vital Signs: Vital Signs Temp Pulse Resp BP Pulse Ox O2 Del Method 07/28/25 07:29 96.8 F 76 18 121/59 L 96 Room Air 07/28/25 03:12 97.0 F 77 18 117/56 L 98 Room Air Anesthesia: Monitored Mental Status: Awake Pain Control: Satisfactory Nausea/Vomiting: None Hydration: Adequate Anesthesia-Related Issues: No Anes. Related Issues
--- NOTE | 2025-07-28 10:39 | P.CDIM_ITS ---
PROVIDER RESPONSE TEXT: To clarify, the appropriate diagnosis supported by the clinical indicators: Acute on chronic QUERY TEXT: PHYSICIAN'S DOCUMENTATION REQUEST Date of Query: 07/28/2025 07:39 AM EDT Patient Name: Jada Zelaya Admit Date: 07/27/2025 Dear Hermann Adams MD, A review of the medical record indicates additional documentation may be needed. Please review below and update the documentation accordingly. Clinical Indicators: Per Operative report 07/27/25, patient noted to have Osteomyelitis underwent right 2nd toe amputation for nonhealing ulcer Clarify which of the following accurately represents the acuity of the Osteomyelitis. Possible options might include: Acute Acute on chronic Compensated Chronic stable condition Remission Other (explain) Clinically unable to determine (explain) Thank you, Vicki Santos RN Use of terms such as suspected, likely, concern for, or probable (associated with a specific diagnosis that is being evaluated, monitored, or treated as if it exists) are acceptable and can be coded in the inpatient setting, when documented at the time of discharge. Please use your independent medical judgment in providing your response. THIS QUERY IS PART OF THE PERMANENT MEDICAL RECORD
[2025-07-28 11:24] LABS: Glucose, Whole Blood 232 mg/dL (60-115)
[2025-07-28] MEDS: Milk of Magnesia 30 ML ORAL.SUSP PO (11:32)
--- NOTE | 2025-07-28 12:49 | MHC.CM.PN ---
IMM DELIVERED PT LIVES WITH [facility], IS FUNCTIONALLY INDEPENDENT AT BASELINE. NO DME OR SERVICES. +HCP ON FILE AND VERIFIED. PCP DR. RENDON. DP: HOME WITH NEW [facility] FOR SN VISITS, ?P.T. [facility] ACCEPTS PT THIS IS PT FIRST CHOICE. [facility] WILL TRANSPORT. CM WILL CONTINUE TO FOLLOW FOR ANY CHANGE TO DC PLAN.
[2025-07-28 15:22] VITALS: BP 141/70; PULSE 72; RESP 18; TEMP 36.1; O2SAT 98
--- NOTE | 2025-07-28 15:28 | HO.VASCPN ---
Subjective Subjective Date of Service: 07/28/25 Patient reports: no new complaints and still having pain Interval history: 64-year-old female postop day 1 status post right 2nd toe amputation. Doing overall fairly well. Blood sugars seem to be somewhat better controlled. She did have pain issues last night and did require tramadol and subsequently morphine. She appears to be doing somewhat better today. Still complaining of some pain and discomfort of that right lower extremity. Blood sugars appear to better controlled. Yesterday preprocedure it was a high of 442. Today is been 232. Physical Exam Vital Signs: Vital Signs: Last Vital Signs Temp 97.0 F 07/28/25 15:22 Pulse 72 07/28/25 15:22 Resp 18 07/28/25 15:22 BP 141/70 H 07/28/25 15:22 Pulse Ox 98 07/28/25 15:22 O2 Del Method Room Air 07/28/25 15:22 BMI result Body Mass Index 31.5 Const: General: cooperative, healthy appearing and comfortable Orientation/consciousness: oriented to person, oriented to place and oriented to time HEENT: Head: Yes normal to inspection Neck: Neck: Yes normal visual inspection Carotids: no bruits Chest: Chest palpation & inspection: normal inspection of the chest Resp: Effort & Inspection: normal respiratory effort and able to speak in complete sentences Auscultation: clear to auscultation bilaterally, no crackles, no rales, no rhonchi and no wheezes Cardio: Rate: regular rate Rhythm: regular rhythm Heart sounds: S1 normal heart sound present and S2 normal heart sound present Bruits: no carotid bruits Peripheral pulses: Peripheral pulses 2+ throughout GI: Inspection: Yes normal to inspection Skin: Other: Dressing clean dry intact. Outer Gustavo wrap removed. Wounds: amputation site Hair: normal Neuro: General: oriented to person, oriented to place and oriented to time Cranial nerves: Yes CN's II-XII intact bilaterally and Yes Normal hearing present Cognition (Neuro): normal cognition Motor exam (neuro): 5/5 motor strength present throughout Extrem: Other: venous exam: No significant superficial varicosities or spider telangiectasias, minimal edema General: No clubbing, No cyanosis and No edema Psych: Appearance: grossly normal Mental Status: mental status grossly normal Speech and movement: Normal speech and movement present Progress Note: A&P Assessment and plan (1) PAD (peripheral artery disease): Status: Acute Assessment and Plan: In short patient is doing fairly well status post right 2nd toe amputation. Continue blood sugar management per medical team. We will plan for dressing change for tomorrow. If stable and pain control appears to be better may be discharged as early as tomorrow. Thank you to the hospitalist team for their assistance in her care. Time Spent With Patient Time: Total time managing care of this patient today ____ minutes. Procedures Date of Service Date of Service: 07/28/25 Quality Stroke Does the patient have a stroke diagnosis?: No VTE Prior VTE?: No VTE Risk Level:: Surgical - low VTE Device Contraindication: N/A - Device Ordered VTE Drug Contraindication: Treatment Not Indicated
[2025-07-28 16:16] LABS: Glucose, Whole Blood 183 mg/dL (60-115)
[2025-07-28 19:05] VITALS: BP 144/72; PULSE 79; RESP 18; TEMP 36.2; O2SAT 99
[2025-07-28 19:55] LABS: Glucose, Whole Blood 169 mg/dL (60-115)
[2025-07-29 03:02] VITALS: BP 130/67; PULSE 67; RESP 18; TEMP 36.2; O2SAT 97
[2025-07-29 07:02] VITALS: BP 106/59; PULSE 83; RESP 18; TEMP 36.6; O2SAT 97
[2025-07-29 07:09] LABS: Glucose, Whole Blood 133 mg/dL (60-115)
[2025-07-29 11:31] LABS: Glucose, Whole Blood 244 mg/dL (60-115)
--- NOTE | 2025-07-29 11:35 | P.F2F_ITS ---
Service Date Service Date: 07/29/25 Encounter Date of encounter: 07/29/25 Reasons for Services Signs and symptoms assessed: Incision evaluation Blood sugar monitoring Reason for residential: wound care, medication management and medication treatment MD Overseeing Care: Hermann Adams Homebound: Leaving the home is medically contraindicated at this time without the asist of a device and/or another person due th the listed conditions above and below. Reason homebound: unsteady gait / fall risk, poor balance / fall risk and unable to drive Homebound supporting statement: Patient is postop status post toe amp. Homebound status as patient is fall risk with unsteady gait. Certification: Based on the above findings, I certify that this patient is confined to the home and needs intermittent residential care, physical therapy and/or speech therapy, or continues to need occupational therapy. The patient is under my care, and I have initiated the establishment of the plan of care. The patient will be followed by a physician who will periodically review the plan of care. Time Spent With Patient Time: Total time managing care of this patient today __35__ minutes.
--- NOTE | 2025-07-29 11:37 | P.DS_ITS ---
DS: Providers Provider Date of Service: 07/29/25 Date of admission: 07/27/25 12:05 Date of discharge: 07/29/25 Primary care physician: Jewel Nuñez MD Consults: 07/27/25 12:04 Consult to Hospitalist Routine Comment: Consulting [place] [facility] [place] [facility] [place] For Exam: diabetes management DS: Diagnosis Discharge Diagnosis (1) PAD (peripheral artery disease): Status: Acute DS: Summary Hospital Course Hospital Course: Patient underwent toe amputation on 07/27/2025. At the time of surgery her blood sugars were elevated to 405. Toe amputation went uneventfully but was subsequently admitted for pain control and better control of her blood sugars. She was observed for 2 days. At the time of discharge her pain was better controlled with tramadol. In addition her blood sugars were less than 200 at that point. She was subsequently discharged. Status at Discharge Functional status at discharge: independent ambulation Overall status at discharge: patient is back to baseline Time Attestation Discharge Coordination Time (in mins): 35 minutes Quality: Safe Use of Opioids Does Pt have an Active Cancer Diagnosis on the Problem List?: No Quality: Stroke Does the patient have a stroke diagnosis?: No Physical Exam Vital Signs: Vital Signs: Last Vital Signs Temp 97.8 F 07/29/25 07:02 Pulse 83 07/29/25 07:02 Resp 18 07/29/25 07:02 BP 106/59 L 07/29/25 07:02 Pulse Ox 97 07/29/25 07:02 O2 Del Method Room Air 07/29/25 07:02 BMI result Body Mass Index 31.5 Const: General: cooperative, healthy appearing and comfortable Orientation/consciousness: oriented to person, oriented to place and oriented to time HEENT: Head: Yes normal to inspection Neck: Neck: Yes normal visual inspection Carotids: no bruits Chest: Chest palpation & inspection: normal inspection of the chest Resp: Effort & Inspection: normal respiratory effort and able to speak in complete sentences Auscultation: clear to auscultation bilaterally, no crackles, no rales, no rhonchi and no wheezes Cardio: Rate: regular rate Rhythm: regular rhythm Heart sounds: S1 normal heart sound present and S2 normal heart sound present Bruits: no carotid bruits Peripheral pulses: Peripheral pulses 2+ throughout GI: Inspection: Yes normal to inspection Skin: Other: Incision line well healed Wounds: amputation site Hair: normal Neuro: General: oriented to person, oriented to place and oriented to time Cranial nerves: Yes CN's II-XII intact bilaterally and Yes Normal hearing present Cognition (Neuro): normal cognition Motor exam (neuro): 5/5 motor strength present throughout Extrem: Other: venous exam: No significant superficial varicosities or spider telangiectasias, minimal edema General: No clubbing, No cyanosis and No edema Psych: Appearance: grossly normal Mental Status: mental status grossly normal Speech and movement: Normal speech and movement present DS: Data Data Completed and Pending Pending studies at discharge: Pending at discharge 07/27/25 11:37 Surgical [PTH] Routine Labs on day of discharge: Laboratory Results - last 24 hr 07/28/25 07/28/25 07/29/25 16:12 19:52 07:04 POC Glucose 183 H 169 H 133 H 07/29/25 11:24 POC Glucose 244 H Discharge Plan Discharge Anticipated Discharge Date/Time: 07/29/25 11:31 Patient Disposition: Home Health Service Discharge Diagnosis: Status post right 2nd toe amputation Referrals: Jewel Nuñez MD [Primary Care Provider, Internal Medicine] - 1 Week Discharge Medications: New tramadol 50 mg tablet 50 mg PO Q8H PRN (Reason: pain) Qty: 14 0RF Continued celecoxib 200 mg capsule 200 mg PO BID omeprazole 20 mg capsule,delayed release(DR/EC) 20 mg PO DAILY@0630 cholecalciferol (vitamin D3) [Vitamin D3] 50 mcg (2,000 unit) Capsule 50 mcg PO DAILY warfarin 5 mg Tablet 7.5 mg PO TUTHSA@1800 Protocol: Dose Management Condition: Sunday (Week One) Dose/Route: 7.5 mg Instruction: 1.5 x 5 mg tablets Condition: Sunday Dose/Route: 5 mg Instruction: 1 x 5 mg tablet Condition: Sunday Dose/Route: 7.5 mg Instruction: 1.5 x 5 mg tablets Condition: Sunday Dose/Route: 5 mg Instruction: 1 x 5 mg tablet Condition: Dose/Route: 7.5 mg Instruction: 1.5 x 5 mg tablets Condition: Sunday Dose/Route: 7.5 mg Instruction: 1.5 x 5 mg tablets Condition: Sunday Dose/Route: 7.5 mg Instruction: 1.5 x 5 mg tablets Condition: Sunday (Week Two) Dose/Route: 7.5 mg Instruction: 1.5 x 5 mg tablets Condition: Sunday Dose/Route: 5 mg Instruction: 1 x 5 mg tablet Condition: Sunday Dose/Route: 7.5 mg Instruction: 1.5 x 5 mg tablets Condition: Sunday Dose/Route: 7.5 mg Instruction: 1.5 x 5 mg tablets Condition: Dose/Route: 5 mg Instruction: 1 x 5 mg tablet Condition: Sunday Dose/Route: 0 mg Instruction: 0 tablets Condition: Sunday Dose/Route: 0 mg Instruction: 0 tablets Protocol Text: Adjustment Start Date: Sunday07/15/25 INR Value: 3.2 INR Date: 07/15/25 Recheck Date: 07/31/25 Additional Instructions: take 5mg today but take 7.5mg tomm- then CONT REG DOSING eat a green today 3 day hold of warfarin - last dose 07/23/25 RESTART WARFARIN WHEN OK WITH MD- CHECK OK IF SMALL BOOSTER DOSE WHEN RESTARTING WARFARIN NO GREENS WHEN RESTARTING WARFARIN warfarin 5 mg tablet 5 mg PO SuMoWeFr@1800 Protocol: Dose Management Condition: Sunday (Week One) Dose/Route: 7.5 mg Instruction: 1.5 x 5 mg tablets Condition: Sunday Dose/Route: 5 mg Instruction: 1 x 5 mg tablet Condition: Sunday Dose/Route: 7.5 mg Instruction: 1.5 x 5 mg tablets Condition: Sunday Dose/Route: 5 mg Instruction: 1 x 5 mg tablet Condition: Dose/Route: 7.5 mg Instruction: 1.5 x 5 mg tablets Condition: Sunday Dose/Route: 7.5 mg Instruction: 1.5 x 5 mg tablets Condition: Sunday Dose/Route: 7.5 mg Instruction: 1.5 x 5 mg tablets Condition: Sunday ( Two) Dose/Route: 7.5 mg Instruction: 1.5 x 5 mg tablets Condition: Sunday Dose/Route: 5 mg Instruction: 1 x 5 mg tablet Condition: Sunday Dose/Route: 7.5 mg Instruction: 1.5 x 5 mg tablets Condition: Sunday Dose/Route: 7.5 mg Instruction: 1.5 x 5 mg tablets Condition: Dose/Route: 5 mg Instruction: 1 x 5 mg tablet Condition: Sunday Dose/Route: 0 mg Instruction: 0 tablets Condition: Sunday Dose/Route: 0 mg Instruction: 0 tablets Protocol Text: Adjustment Start Date: Sunday07/15/25 INR Value: 3.2 INR Date: 07/15/25 Recheck Date: 07/31/25 Additional Instructions: take 5mg today but take 7.5mg tomm- then CONT REG DOSING eat a green today 3 day hold of warfarin - last dose 07/23/25 RESTART WARFARIN WHEN OK WITH MD- CHECK OK IF SMALL BOOSTER DOSE WHEN RESTARTING WARFARIN NO GREENS WHEN RESTARTING WARFARIN (DME) Durafiber Dressing 2 X 2 bandage See Rx Instructions .Route Qty: 200 0RF Rx Instructions: As directed (DME) gauze bandage 1 X 5 -yard bandage See Rx Instructions .Route Qty: 12 0RF Rx Instructions: As directed (DME) blood sugar diagnostic Strip See Rx Instructions Not Applicable BID Qty: 10 Rx Instructions: As directed atorvastatin 40 mg tablet 40 mg PO BEDTIME empagliflozin 25 mg tablet 25 mg PO DAILY lisinopril 5 mg tablet 5 mg PO BEDTIME Mounjaro 7.5 mg/0.5 mL pen injector 7.5 mg subcut QWEEK Rx Instructions: takes on Saturdays loratadine [Claritin] 10 mg tablet 10 mg PO DAILY fluticasone propionate 50 mcg/actuation spray,suspension 1 spray intranasal DAILY Discharge Orders: Discharge Order (Routine); Ordered 07/29/25 Ordered By: Hermann Adams Diet: Advance to usual diet Activity on Discharge: As tolerated Stand Alone Forms: Patient Portal Discharge page Print Language: Romanian Activity Restrictions/Additional Instructions: Wound care upon discharge: xeroform, 4x4 and Kerlix wrap to be changed every other day. Please call Dr. Adams at [phone] for 2 week follow up for suture and staple removal Care Plan Goals: Monitor incision after toe amp Health Concerns: Diabetic foot ulcers Plan of Treatment: Monitor incision after amputation Diabetes control Assessment: Status post right 2nd toe amputation
--- NOTE | 2025-07-29 11:59 | MHC.CM.PN ---
PT REFERRED TO [facility];E TO SEE PT FOR 10 TO 14 DAYS
[2025-07-29 12:52] VITALS: BP 128/68; PULSE 80; RESP 18; TEMP 36.6; O2SAT 97
== END 2025-07-29 13:37 | disposition home health service (06) | DRG 617 ==
LOC: HO.SSSA 12:35 → HO.S3 13:41
PROVIDERS: Nurse Practitioner; Admitting Provider Surgery Vascular Surgery; PCP Internal Medicine; Visit Provider Surgery Vascular Surgery
PROC: 0Y6R0Z0 Detachment at Right 2nd Toe, Complete, Open Approach (ICD-10-PCS; principal; 2025-07-27 11:00)
DX: E11.69 Type 2 diabetes mellitus with other specified complication (principal); M86.171 Other acute osteomyelitis, right ankle and foot; M86.671 Other chronic osteomyelitis, right ankle and foot; I10 Essential (primary) hypertension; E66.811 Obesity, class 1; Z71.3 Dietary counseling and surveillance; Z68.31 Body mass index [BMI] 31.0-31.9, adult; E11.51 Type 2 diabetes mellitus with diabetic peripheral angiopathy without gangrene; L97.519 Non-pressure chronic ulcer of other part of right foot with unspecified severity; E78.5 Hyperlipidemia, unspecified; K21.9 Gastro-esophageal reflux disease without esophagitis; Z87.891 Personal history of nicotine dependence; Z79.01 Long term (current) use of anticoagulants; Z79.51 Long term (current) use of inhaled steroids; Z79.899 Other long term (current) drug therapy
CPT/HCPCS: 36415; 80048; 82947; 85025; 85027; 85610; 88305; 88311; J2003; J2250; J2270; J2704; J2795; J3010; J3374

== ENCOUNTER → 2025-07-27 12:05 | Outpatient (BNV) | payer MEDICARE, OTHER, SELFPAY | PROVIDERS: Admitting Provider Surgery Vascular Surgery; PCP Internal Medicine; Visit Provider Nurse Practitioner Acute Care | DX: I73.9 Peripheral vascular disease, unspecified (principal) | CPT/HCPCS: 99222 ==

== ENCOUNTER 2025-08-03 13:54 | Inpatient (IN) | payer MEDICARE, OTHER, SELFPAY ==
--- NOTE | ~2025-08-03 | CT_ITS ---
CLINICAL HISTORY: sepsis CT abdomen and pelvis with contrast Comparison: None provided Findings: LIMITED CHEST: Mild bibasilar atelectasis/scarring. LIVER: No focal liver lesion. BILIARY: Gallbladder is not visualized. PANCREAS: No mass or ductal dilatation. SPLEEN: No splenomegaly. KIDNEYS: Bilateral subcentimeter nephrolithiasis. No hydronephrosis. ADRENALS: No nodule. VASCULAR: No aneurysm. RETROPERITONEUM: No lymphadenopathy or mass. BOWEL/MESENTERY: Colonic diverticulosis. Mild appearance of wall thickening in the descending colon may be due to underdistention. ABDOMINAL WALL: No mass or significant abnormality. URINARY BLADDER: No focal wall thickening. PELVIC NODES: No pelvic lymphadenopathy. PELVIC ORGANS: Normal for age. BONES: No acute fracture. OTHER: Negative. IMPRESSION: 1. Colonic diverticulosis without CT evidence of acute diverticulitis. 2. Descending colonic wall thickening may be due to underdistention, however colitis is also considered in the appropriate clinical setting. This document has been electronically signed by: Ashley Wilson MD on 08/04/2025 20:16:40
[2025-08-03 14:01] VITALS: BP 130/70; PULSE 90; O2SAT 98
[2025-08-03 14:07] VITALS: BP 116/59; PULSE 100; RESP 16; TEMP 36.8; O2SAT 96; BMI 32.7
--- NOTE | 2025-08-03 14:57 | PC.NURSE ---
Delay in obtaining labs secondary to pt having poor venous access. Dr. He made aware, awaiting placement of U/S iv by provider
--- NOTE | 2025-08-03 15:23 | ED_ITS ---
HPI - Wound/Laceration General Chief Complaint: Wound/Laceration Stated Complaint: toe amputation 1 week ? infection pain and redness Time Seen by Provider: 08/03/25 14:37 Source: patient and EMS Mode of arrival: EMS Limitations: no limitations History of Present Illness ED Provider: HPI narrative: 64-year-old woman status post right 2nd toe amputation secondary to do peripheral arterial disease by Dr. Adams on July 27, patient was sent to the hospital by [facility] due to malodorous smell, wound dehiscence and erythema that was noted during a dressing change. Related Data Home Medications ?Medication ?Instructions ?Recorded ?Confirmed celecoxib 200 mg capsule 200 mg PO BID 10/25/2007/27 cholecalciferol (vitamin D3) 50 50 mcg PO DAILY 07/27/25 mcg (2,000 unit) capsule (Vitamin D3) omeprazole 20 mg capsule,delayed 20 mg PO DAILY@0630 1 12/26/19 07/27/25 release blood sugar diagnostic #10 ea 11/08/20 07/27/25 atorvastatin 40 mg tablet 40 mg PO BEDTIME 12/09/20 empagliflozin 25 mg tablet 25 mg PO DAILY 12/09/20 loratadine 10 mg tablet (Claritin) 10 mg PO DAILY 08/1207/27/25 lisinopril 5 mg tablet 5 mg PO BEDTIME 09/26/23 warfarin 5 mg tablet 5 mg PO SuMoWeFr@1800 07/30/25 warfarin 5 mg tablet 7.5 mg PO TUTHSA@1800 07/30/25 fluticasone propionate 50 2 spray intranasal DAILY 09/0507/27/25 mcg/actuation nasal spray,suspension tirzepatide 7.5 mg/0.5 mL 7.5 mg subcut 06/25/2507/27 subcutaneous pen injector (Festus) Previous Rx's ?Medication ?Instructions ?Recorded gauze bandage 1 X 5 yard #12 ea 03/19/25 hydrocolloid dressing 2 X 2 #200 ea 03/19/25 (Durafiber Dressing) tramadol 50 mg tablet 50 mg PO Q8H PRN pain #14 ta bs 07/29/25 Allergies Allergy/AdvReac Type Severity Reaction Status Date / Time droperidol (From INAPSINE) Allergy Severe Anaphylaxis Verified 08/03/25 14:14 egg (EGG) Allergy Severe Nausea and Verified 08/03/25 14:14 Vomiting latex (LATEX) Allergy Severe HIVES Verified 08/03/25 14:14 metformin (METFORMIN) Allergy Severe DIZZINESS Verified 08/03/25 14:14 AND NAUSEA penicillin V Allergy Severe RASH Verified 08/03/25 14:14 codeine (CODEINE) Allergy Intermediate Rash Verified 08/03/25 14:14 Hydrocodone Bitartrate Allergy Intermediate Rash Uncoded 07/27/25 09:20 Review of Systems 2 Constitutional: Constitutional: Reports as per [facility] Past Medical History Medical History LBBB (left bundle branch block) Hx of drainage of abscess DVT (deep venous thrombosis) Arthritis Low back pain Diabetes Elevated cholesterol Colon polyps Mccormack esophagus Bronchial asthma HTN (hypertension) Polycythemia Current use of anticoagulant therapy Surgical History S/P aortogram History of esophagogastroduodenoscopy (EGD) Previous back surgery Hx of colonoscopy History of hysterectomy History of delivery History of appendectomy History of cholecystectomy Family History Family History Father Heart disease Afib Heart attack Maternal Grandmother Lung cancer Maternal Grandfather Prostate CA Paternal Grandmother Heart attack Paternal Grandfather Heart attack Social History Social History Household Members: Spouse Housing: House Are you a primary vision care associate to a significant other at home: No Do you presently have visiting nurse or other home services: No Alcohol intake: former Comment: COUNTS CORRECT Patient Tobacco Use Status: Former Tobacco user Tobacco use type: Cigarette Cigarette Packs Per Day: 1 Years Smoked: 25 Substance Use Type: Marijuana Advance Directives: Yes Advance Directives Information Provided: Yes Advance Directives on File: No service: No Current occupational status: retired Physical Exam 2 Vital Signs: Vital Signs: Last Vital Signs Temp 98.3 F 08/03/25 14:07 Pulse 100 08/03/25 14:07 Resp 16 08/03/25 14:07 BP 116/59 L 08/03/25 14:07 Pulse Ox 96 08/03/25 14:07 O2 Del Method Room Air 08/03/25 14:07 BMI result Body Mass Index 32.7 Const: Other: General: cooperative and comfortable Nutritional Appearance: overweight Orientation/consciousness: patient oriented x3 Chest: Chest palpation & inspection: normal palpation of entire chest wall Resp: Effort & Inspection: normal respiratory effort and able to speak in complete sentences Cardio: Heart sounds: S1 normal heart sound present and S2 normal heart sound present Skin: Other: See above Neuro: General: patient oriented x3 Cranial nerves: Yes CN's II-XII intact bilaterally Medications Administered Discontinued Medications Generic Name Dose Route Start Last Admin Trade Name Reyq PRN Reason Stop Dose Admin Cefepime HCl 2 gm in 50 mls @ 100 mls/hr 08/03/25 15:23 08/03/25 16:29 Maxipime IV 08/03/25 15:52 Infused ONCE ONE Infusion Tramadol HCl 50 mg 08/03/25 16:04 08/03/25 16:10 Tramadol Hcl 50 Mg Tablet PO 08/03/25 16:05 50 mg ONCE ONE Administration Medical Decision Making Medical Decision Making [facility] [place] Narrative: 3:50 PM 08/03/2025 (Dr. Jose Ramirez): Patient is presenting with postop wound infection/dehiscence, I contacted Dr. Adams to see if there was any specific he would like me to order he told me just IV antibiotics, patient is splint to be admitted to medical service and Dr. Adams will follow. She has allergies to penicillin, I will cover with cefepime Differential Diagnosis Differential Diagnoses: The differential diagnosis associated with the presentation includes (Wound dehiscence, cellulitis, abscess, DVT, septic joint) Admission/Observation Consideration of admission/observation: Escalation of care including admission/observation considered Consult Healthcare Provider Management of the patient was discussed with: Ear Muff Assembler (Dr. Adams from vascular surgery) Lab Data [facility] [place] Lab Attestation statement: I reviewed the patient's lab results. 08/03/25 15:29 08/03/25 15:29 Labs: Lab Results 08/03/25 Range/Units 15:29 WBC 13.9 H (4.8-10.8) X10*3/uL RBC 5.05 (4.20-5.50) X10*6/uL Hgb 15.1 (12.0-16.0) g/dl Hct 44.5 (37.0-47.0) % MCV 88.1 (80.0-98.0) fL MCH 29.9 (27.0-33.0) pg MCHC 33.9 (31.0-35.0) g/dl RDW 13.6 (11.0-16.0) % Plt Count 330 D (160-400) X10*3/uL MPV 9.3 L (9.4-12.3) fL Immature Gran % (Auto) 0.5 H (0.0-0.4) % Neut % (Auto) 82.5 H (45-73) % Lymph % (Auto) 10.2 L (20-40) % Morrill % (Auto) 6.3 (2-11) % Eos % (Auto) 0.1 (0-4) % Baso % (Auto) 0.4 (0-2) % Lymph # (Auto) 1.4 (1.2-4.9) X10*3/uL Morrill # (Auto) 0.9 (0.1-1.2) X10*3/uL Eos # (Auto) 0.0 (0.0-0.4) X10*3/uL Baso # (Auto) 0.1 (0.0-0.2) X10*3/uL Abs Immat Gran (auto) 0.07 H (0.00-0.03) X10*3/uL Absolute Neuts (auto) 11.4 H (2.0-8.3) x10*3/uL Absolute Nucleated RBC 0.000 (0.0-0.012) X10*3/uL Nucleated RBC % (auto) 0.0 (0.0-0.2) /100WBC PT 22.3 H D (10.9-12.4) SEC INR 1.9 H (0.9-1.1) Sodium 138 (135-145) mmol/L Potassium 4.2 (3.3-5.1) mmol/L Chloride 103 (96-108) mmol/L Carbon Dioxide 21 L (22-29) mmol/L Anion Gap 18 (12-20) BUN 17 H (9-16) mg/dL Creatinine 0.74 (0.5-1.4) mg/dL Estim Creat Clear Calc 91.3 Estimated GFR > 60 Random Glucose 206 H (60-115) mg/dL Lactic Acid 1.3 (0.5-2.0) mmol/L Calcium 9.4 D (8.4-10.2) mg/dL Independent Interpretation I performed an independent interpretation of an: Plain X-Ray ([place] in place, no subcutaneous gas) External Record Review External record reviewed: Outpatient record Prescription Management I considered prescription management with: Pain Medication and Antibiotic Critical Care Time Critical Care Time Critical Care Time: Yes Total Critical Care Time: 35 Attestation: Time is exclusive of separately billable procedures. Time includes: direct patient care, patient reassessment, coordination of patient care, interpretation of data (laboratory data, pulse oximetry, arterial blood gases and chest xrays), review of patient's medical records, medical consultation and documentation of patient care. Procedures excluded from critical care time: central intravenous line placement and electrocardiography. Discharge Plan Discharge Clinical Impression: Postoperative wound infection Patient Disposition: Admitted As Inpatient
--- NOTE | 2025-08-03 15:37 | PC.NURSE ---
U/S iv placed by Dr. He, labs and cx's obtained.
[2025-08-03 15:42] LABS: MANUAL DIFF FLAG NO
[2025-08-03 15:43] LABS: Hematocrit 44.5 % (37.0-47.0); Hemoglobin 15.1 g/dl (12.0-16.0); Imm Gran Abs Auto 0.07 X10*3/uL (0.00-0.03); Imm Gran Pct Auto 0.5 % (0.0-0.4); Lymphocytes Absolute Auto 1.4 X10*3/uL (1.2-4.9); Mean Corpuscular HGB Conc 33.9 g/dl (31.0-35.0); Mean Corpuscular Hemoglobin 29.9 pg (27.0-33.0); Mean Corpuscular Volume 88.1 fL (80.0-98.0); NRBC Abs Auto 0.000 X10*3/uL (0.0-0.012); NRBC Pct Auto 0.0 /100WBC (0.0-0.2); Platelet Count 330 X10*3/uL (160-400); Red Blood Count 5.05 X10*6/uL (4.20-5.50); White Blood Count 13.9 X10*3/uL (4.8-10.8)
[2025-08-03] MEDS: cefEPime HCl/D5W 2 GM/50 ML PIGGYBACK IV (15:48)
[2025-08-03 15:50] LABS: INTERNATIONAL NORM RATIO 1.9 (0.9-1.1); Prothrombin Time 22.3 SEC (10.9-12.4)
[2025-08-03 16:00] LABS: Anion Gap 18 (12-20); Blood Urea Nitrogen 17 mg/dL (9-16); Calcium 9.4 mg/dL (8.4-10.2); Carbon Dioxide 21 mmol/L (22-29); Chloride 103 mmol/L (96-108); Creatinine Clr Calc Pharmacy 91.3; Estimated Glomerular Filt Rate > 60; Potassium 4.2 mmol/L (3.3-5.1); Sodium 138 mmol/L (135-145)
--- NOTE | 2025-08-03 16:13 | PM.IMHP ---
History of Present Illness Date of Service: 08/03/25 Attending physician on admission: [facility] Chief Complaint: foot infection This is a 64 year old female with history of diabetes who underwent right 2nd toe foot amputation secondary to osteomyelitis on July 27 who returns with concern over foot infection. Patient says that the visiting nurses have been monitoring her foot due to concern for increasing redness. Today they noted foul smelling odor with redness extending to her 1st and 3rd toes and recommended she come to the hospital for further evaluation. She reports having chills and vomiting overnight. Today in the emergency department workup was significant for leukocytosis of 13.9. She received a dose of cefepime in the decision was made to admit her to the hospital for further management of wound infection. Review of Systems Review of Systems: Yes all other systems are reviewed and are negative Constitutional: Constitutional: Denies chills and Denies fever(s) Cardiovascular: Cardiovascular: Denies chest pain, Denies palpitations and Denies dyspnea Respiratory: Respiratory: Denies cough and Denies dyspnea Endocrine: Endocrine: Denies palpitations [facility] Medical History LBBB (left bundle branch block) Hx of drainage of abscess DVT (deep venous thrombosis) Arthritis Low back pain Diabetes Elevated cholesterol Colon polyps Mccormack esophagus Bronchial asthma HTN (hypertension) Polycythemia Current use of anticoagulant therapy Family History Father Heart disease Afib Heart attack Maternal Grandmother Lung cancer Maternal Grandfather Prostate CA Paternal Grandmother Heart attack Paternal Grandfather Heart attack Surgical History S/P aortogram History of esophagogastroduodenoscopy (EGD) Previous back surgery Hx of colonoscopy History of hysterectomy History of delivery History of appendectomy History of cholecystectomy Social History Household Members: Spouse Housing: House Are you a primary manager critical care unit to a significant other at home: No Do you presently have visiting nurse or other home services: No Alcohol intake: former Comment: COUNTS CORRECT Patient Tobacco Use Status: Former Tobacco user Tobacco use type: Cigarette Cigarette Packs Per Day: 1 Years Smoked: 25 Use of substances other than those prescribed or required for medical reasons: No Substance Use Type: Marijuana Advance Directives: Yes Advance Directives Information Provided: Yes Advance Directives on File: No service: No Current occupational status: retired Meds Allergies Allergy/AdvReac Type Severity Reaction Status Date / Time droperidol (From INAPSINE) Allergy Severe Anaphylaxis Verified 08/03/25 14:14 egg (EGG) Allergy Severe Nausea and Verified 08/03/25 14:14 Vomiting latex (LATEX) Allergy Severe HIVES Verified 08/03/25 14:14 metformin (METFORMIN) Allergy Severe DIZZINESS Verified 08/03/25 14:14 AND NAUSEA penicillin V Allergy Severe RASH Verified 08/03/25 14:14 codeine (CODEINE) Allergy Intermediate Rash Verified 08/03/25 14:14 Hydrocodone Bitartrate Allergy Intermediate Rash Uncoded 07/27/25 09:20 Home Medications ?Medication ?Instructions ?Recorded ?Confirmed ?Last Taken ?Type celecoxib 200 mg capsule 200 mg PO BID 10/25/20 08/03/25 08/03/25 History cholecalciferol (vitamin D3) 50 50 mcg PO DAILY 10/25/20 08/03/25 08/03/25 History mcg (2,000 unit) capsule (Vitamin D3) omeprazole 20 mg capsule,delayed 20 mg PO DAILY@0630 10/25/20 08/03/25 08/03/25 History release blood sugar diagnostic #10 ea 11/08/20 07/27/25 Unknown History atorvastatin 40 mg tablet 40 mg PO BEDTIME 12/09/20 08/03/25 08/02/25 History empagliflozin 25 mg tablet 25 mg PO DAILY 12/09/20 08/03/25 08/03/25 History loratadine 10 mg tablet (Claritin) 10 mg PO DAILY 08/29/23 08/03/25 08/03/25 History lisinopril 5 mg tablet 5 mg PO BEDTIME 09/26/23 08/03/25 08/02/25 History warfarin 5 mg tablet 5 mg PO MOTH@1800 03/17/25 08/03/25 07/30/25 History warfarin 5 mg tablet 7.5 mg PO SUTUWEFRSA@1800 03/17/25 08/03/25 08/02/25 History fluticasone propionate 50 2 spray intranasal DAILY 0608/03/25 08/03/25 History mcg/actuation nasal spray,suspension tirzepatide 7.5 mg/0.5 mL 7.5 mg subcut SA 06/25/25 08/03/25 08/01/25 History subcutaneous pen injector (Festus) Physical Exam Vital Signs and Narrative: Vital Signs: Last Vital Signs Temp 98.3 F 08/03/25 14:07 Pulse 100 08/03/25 14:07 Resp 16 08/03/25 14:07 BP 116/59 L 08/03/25 14:07 Pulse Ox 96 08/03/25 14:07 O2 Del Method Room Air 08/03/25 14:07 BMI result Body Mass Index 32.7 Const: General: cooperative, comfortable, no acute distress, alert and awake Nutritional Appearance: obese Orientation/consciousness: patient oriented x3 Resp: Effort & Inspection: normal respiratory effort, able to speak in complete sentences, no respiratory distress and no use of accessory muscles Cardio: Rate: regular rate GI: Inspection: No distended Palpation (GI): Soft to palpation Skin: Other: right foot wrapped in c/d/i dressing; foul smelling odor; images from ED provider in chart Neuro: General: patient oriented x3, moves all extremities and CN's II-XI intact bilaterally Results Labs 08/03/25 15:29 08/03/25 15:29 Labs: Laboratory Results - last 24 hr 08/03/25 15:29 MCV 88.1 MCH 29.9 MCHC 33.9 RDW 13.6 Plt Count 330 D MPV 9.3 L Immature Gran % (Auto) 0.5 H Neut % (Auto) 82.5 H Lymph % (Auto) 10.2 L [place] % (Auto) 6.3 Eos % (Auto) 0.1 Baso % (Auto) 0.4 Lymph # (Auto) 1.4 [place] # (Auto) 0.9 Eos # (Auto) 0.0 Baso # (Auto) 0.1 Abs Immat Gran (auto) 0.07 H Absolute Neuts (auto) 11.4 H Absolute Nucleated RBC 0.000 Nucleated RBC % (auto) 0.0 Anion Gap 18 Estim Creat Clear Calc 91.3 Estimated GFR > 60 Random Glucose 206 H Lactic Acid 1.3 Calcium 9.4 D Imaging Radiologist's Impressions: Impressions Foot X-Ray 08/03/25 15:35 IMPRESSION: Status post amputation of the 2nd toe at the level of the MTP joint. Moderate osteoarthritis of the intertarsal joints. Electronically signed by: Jean Carlos Patel MD 08/03/2025 03:46 PM EDT RP Assessment and Plan (1) PAD (peripheral artery disease): Status: Acute Plan This is a 64-year-old female with a history of polycythemia vera on Coumadin, diabetes who underwent right toe amputation for osteomyelitis who returns with redness of operative site Right second toe amputation with wound infection s/p right second toe amputation on 07/27 IV vancomycin follow blood cultures vascular surgery consultation wound care Polycythemia vera Continue Coumadin INR 1.9 follow INR daily DM 2 hold tito friedman SSI, follow POCs, ada diet Hypertension Stable blood pressure Continue lisinopril Obesity class 1. BMI 31.5 Discussed importance of weight management as this may be contributing to worsening of other comorbidities GERD Continue PPI Hyperlipidemia Statin DVT prophylaxis -coumadin; mechanical devices Full code Quality Stroke Does the patient have a stroke diagnosis?: No VTE Prior VTE?: No VTE Risk Level:: Medical - moderate - high VTE Device Contraindication: N/A - Device Ordered VTE Drug Contraindication: N/A - Med Ordered
[2025-08-03 16:58] LABS: Hemoglobin A1C 418.1440 umol/L; Total Hemoglobin (HGBA1C) 3892.4737 umol/L
[2025-08-03 17:07] VITALS: BP 116/59; PULSE 88; RESP 16; TEMP 36.6; O2SAT 97
--- NOTE | 2025-08-03 17:10 | HO.NURTONUR ---
Pt s/p R 2nd toe amputation 07/27. Pt sent here for further eval by [facility] w/ c/o increased redness, and discharge from wound w/ foul odor. Original dressing removed, pictures obtained by provider, and re-dressed w/ xeroform, telfa, and cling. Pt medicated w/ tramadol w/ positive effect. Pt is A&O x 4, ambulates independently without diff.
[2025-08-03 17:19] VITALS: BP 118/60; PULSE 86; RESP 16; TEMP 36.6; O2SAT 97
[2025-08-03] MEDS: vancomycin/NS 2,000 MG/500 ML PLAST..BAG 250 MG IV (17:33)
--- NOTE | 2025-08-03 17:45 | PHA.PROG ---
Admission Date/Time: August 03, 2025 16:13 Indication: skin Weight in k.522 kg Adjusted body weight in Kg: [place] body weight in Kg: Obesity Dosing Indication % IBW: Serum Creatinine - Last 168 Hours 08/03/25 15:29 Creatinine 0.74 Estimated CrCl and GFR - Last 168 Hours 08/03/25 15:29 Estim Creat Clear Calc 91.3 Estimated GFR > 60 Vancomycin Loading Dose: 2000mg x 1 Current Vancomycin Dosing Regimen: 1000mg Q12H Vancomycin Monitoring using AUC goal of 400 - 600 range with trough as surrogate marker: 460 mg/L Date and Time for next Vancomycin Level to be drawn: 08/04/25 @1600 Pharmacist Comments on Vancomycin Plan: Predicted trough of 14.8 mg/L, pulling level after two doses d/t timing of medication admin Vancomycin dosing will take advantage of [employer] as a clinical decision support tool that uses Bayesian modeling to calculate individual patient's pharmacokinetic parameters and forecast the patient's drug concentration time course with the target goal AUC 24 range of 400 - 600 mg/L/hr.
--- NOTE | 2025-08-03 17:53 | PHA.MEDREC ---
Addendum entered by Fabiana Shields [facility] 08/03/25 18:15: Reviewed by [facility] Original Note: Pharmacy Consult ? Medication Reconciliation Pharmacy has completed the medication reconciliation. Spoke with pt and she confirmed her medications. Pt confirmed her Mounjaro once a week on Saturdays (pt took it last 08/01) and she takes her Warfarin 5mg tabs, 1 tab (5mg) on and @1800 and takes 1 1/2 (7.5mg) SUTUWEFRSA @1800.
--- NOTE | 2025-08-03 18:18 | PC.NURSE ---
VILMA U/S iv infiltrated, new iv placed, heat pack placed on infiltration.
[2025-08-03 19:03] VITALS: BP 116/79; PULSE 80; RESP 18; TEMP 36.2; O2SAT 99
[2025-08-03 20:39] LABS: Glucose, Whole Blood 145 mg/dL (60-115)
[2025-08-03] MEDS: 0.9 % Sodium Chloride Flush 3 ML SYRINGE IVFLUSH (23:42)
[2025-08-04 03:02] VITALS: BP 97/51; PULSE 98; RESP 18; TEMP 35.8; O2SAT 95
[2025-08-04 06:41] LABS: Hematocrit 41.1 % (37.0-47.0); Hemoglobin 13.8 g/dl (12.0-16.0); Mean Corpuscular Volume 88.8 fL (80.0-98.0); Red Blood Count 4.63 X10*6/uL (4.20-5.50)
[2025-08-04 06:46] LABS: Platelet Count 284 X10*3/uL (160-400)
[2025-08-04 06:47] LABS: Calcium 8.8 mg/dL (8.4-10.2); Chloride 106 mmol/L (96-108); Potassium 4.0 mmol/L (3.3-5.1); Sodium 137 mmol/L (135-145)
[2025-08-04 06:48] LABS: INTERNATIONAL NORM RATIO 2.1 (0.9-1.1); Prothrombin Time 23.6 SEC (10.9-12.4)
[2025-08-04 07:34] VITALS: BP 99/57; PULSE 96; RESP 17; TEMP 36.6; O2SAT 97
--- NOTE | 2025-08-04 07:52 | HO.PM.IMPN ---
Subjective Subjective Date of Service: 08/04/25 Interval History: pt reports severe chills despite multiple layers of blankets Vascular surgery reports cont abx Review of Systems Review of Systems: Yes all other systems are reviewed and are negative, Unobtainable due to mental condition and Unobtainable due to mental status Physical Exam Vital Signs: Vital Signs: Last Vital Signs Temp 97.8 F 08/04/25 07:34 Pulse 96 08/04/25 07:34 Resp 17 08/04/25 07:34 BP 99/57 L 08/04/25 07:34 Pulse Ox 97 08/04/25 07:34 O2 Del Method Room Air 08/04/25 07:34 BMI result Body Mass Index 32.7 Const: Other: General: cooperative and comfortable Nutritional Appearance: overweight Orientation/consciousness: patient oriented x3 Chest: Chest palpation & inspection: normal palpation of entire chest wall Resp: Effort & Inspection: normal respiratory effort and able to speak in complete sentences Cardio: Heart sounds: S1 normal heart sound present and S2 normal heart sound present Skin: Other: See above Neuro: General: patient oriented x3 Cranial nerves: Yes CN's II-XII intact bilaterally Objective Data Active Medications Acetaminophen (Acetaminophen 325 Mg Tablet) 650 mg PO Q6H PRN PRN Reason: Pain, Mild 1-3,fever,headache Atorvastatin Calcium (Atorvastatin Calcium 40 Mg Tablet) 40 mg PO BEDTIME [facility] Last Admin: 08/03/25 20:31 Dose: 40 mg Documented By: SANAM Calcium Carbonate (Calcium Carbonate 750 Mg Tab.Chew) 750 mg PO Q4H PRN PRN Reason: Heartburn Dextrose (Dextrose 50 % 25 Gm/50 Ml Syringe) 25 gm IVPUSH Q15M PRN; Protocol PRN Reason: per Hypoglycemia Standing Ord. Fluticasone Propionate (Fluticasone Propionate Nasal 16 Gm [place]) 2 spray NOSTRIL-B DAILY [facility] Glucose (Glucose Gel 15 Gm Gel..Gram.) 15 gm PO Q15M PRN; Protocol PRN Reason: per Hypoglycemia Standing Ord. Vancomycin HCl 1,000 mg/ (Sodium Chloride) 270 mls @ 270 mls/hr IV Q12H [facility] Last Infusion: 08/04/25 06:44 Dose: Infused Documented By: SANAM Insulin Human Lispro (Insulin Lispro 100 Unit/Ml 3 Ml Vial) 0 unit SUBCUT QIDACHS [facility]; Protocol Last Admin: 08/03/25 20:29 Dose: Not Given Documented By: SANAM Non-Admin Reason: No Insulin Coverage Lisinopril (Lisinopril 5 Mg Tablet) 5 mg PO BEDTIME [facility]; Protocol Last Admin: 08/03/25 20:34 Dose: 5 mg Documented By: SANAM Loratadine (Loratadine 10 Mg Tablet) 10 mg PO DAILY [facility] Magnesium Hydroxide (Milk Of Magnesia 30 Ml Oral.Susp) 30 ml PO DAILY PRN PRN Reason: Constipation Melatonin (Melatonin 3 Mg Tablet) 6 mg PO BEDTIME PRN PRN Reason: Insomnia Omeprazole (Omeprazole 20 Mg Capsule.Dr) 20 mg PO DAILY@0630 [facility] Last Admin: 08/04/25 05:39 Dose: 20 mg Documented By: SANAM Pharmacy Consult (Consult Rx Vancomycin Dosing) 1 each MISCELLANE DAILY PRN PRN Reason: Consult order Sodium Chloride (0.9 % Sodium Chloride Flush 3 Ml Syringe) 3 ml IVFLUSH QSHIFT [facility] Last Admin: 08/03/25 23:42 Dose: 3 ml Documented By: SANAM Tramadol HCl (Tramadol Hcl 50 Mg Tablet) 50 mg PO Q8H PRN PRN Reason: Pain, Moderate(Pain Scale 4-6) Vitamin D (Cholecalciferol (Vitamin D3) 25 Mcg Tablet) 50 mcg PO DAILY [facility] Warfarin Sodium (Warfarin Sodium 7.5 Mg Tablet) 7.5 mg PO SUTUWEFRSA@1800 [facility] Warfarin Sodium (Warfarin Sodium 5 Mg Tablet) 5 mg PO MOTH@1800 [facility] Last Admin: 08/03/25 19:33 Dose: 5 mg Documented By: SANAM Labs 08/04/25 05:40 08/04/25 05:40 Labs: Laboratory Results - last 24 hr 08/03/25 08/03/25 08/04/25 15:29 20:27 05:40 MCV 88.1 88.8 MCH 29.9 29.8 MCHC 33.9 33.6 RDW 13.6 13.4 Plt Count 330 D 284 MPV 9.3 L 9.5 Immature Gran % (Auto) 0.5 H 0.3 Neut % (Auto) 82.5 H 79.1 H Lymph % (Auto) 10.2 L 12.3 L [place] % (Auto) 6.3 7.8 Eos % (Auto) 0.1 0.2 Baso % (Auto) 0.4 0.3 Lymph # (Auto) 1.4 1.4 [place] # (Auto) 0.9 0.9 Eos # (Auto) 0.0 0.0 Baso # (Auto) 0.1 0.0 Abs Immat Gran (auto) 0.07 H 0.03 Absolute Neuts (auto) 11.4 H 9.1 H Absolute Nucleated RBC 0.000 0.000 Nucleated RBC % (auto) 0.0 0.0 PT 22.3 H D 23.6 H INR 1.9 H 2.1 H Anion Gap 18 19 Estim Creat Clear Calc 91.3 100.8 Estimated GFR > 60 > 60 POC Glucose 145 H Random Glucose 206 H 181 H Estimat Average Glucose 298 Hemoglobin A1c % 12.0 H Lactic Acid 1.3 Calcium 9.4 D 8.8 D Assessment and Plan (1) Polycythemia: Status: Chronic Plan 64F PMH diabetes, polycythemia with history of DVT on warfarin, hypertension, hyperlipidemia presented with right 2nd toe erythema-found to have cellulitis/sepsis in a patient who is immunocompromised, prior OM post amputation. Right 2nd toe cellulitis due to diabetes and injury in a patient with osteomyelitis post amputation (please refer to the admission picture) Vancomycin, cefepime Follow up cultures, Infectious Disease consult, wound care [facility] surgery consulted - no amputation Chills rigors and nausea and vomiting likely in the setting of ongoing sepsis-sepsis workup has been initiated on admission we are continue to follow. We will give fluid resuscitation Diabetes Insulin sliding scale History of DVT with polycythemia On admission his INR was supratherapeutic likely in the setting of poor p.o. intake For 08/04/2025, we will decrease his warfarin to 5 mg instead of 7.5 mg Warfarin, monitor INR DVT prophylaxis-on Coumadin Full Code Pt is currently hospitalized due to sepsis, a severe infection linked to complications from their Type 2 Diabetes. The medical team is providing aggressive treatment with antibiotics and supportive care to manage the infection and stabilize their condition. Due to the seriousness of sepsis, they will remain in the hospital for ongoing monitoring and recovery. Quality Stroke Does the patient have a stroke diagnosis?: No VTE Prior VTE?: No VTE Risk Level:: Medical - moderate - high VTE Device Contraindication: N/A - Device Ordered VTE Drug Contraindication: N/A - Med Ordered
[2025-08-04] MEDS: 0.9 % Sodium Chloride Flush 3 ML SYRINGE IVFLUSH ×2 (08:40→18:47)
[2025-08-04 09:30] VITALS: TEMP 36.7
--- NOTE | 2025-08-04 09:47 | MHC.CM.PN ---
IMM delivered. Patient lives in an apartment w/ her . Functionally independent. Active w/ [facility] for SN/wound care. PCP Jewel Nuñez MD HCP on file and verified. DP: Goal is home, resume services. to transport. CM will continue to follow.
[2025-08-04 11:26] LABS: Glucose, Whole Blood 241 mg/dL (60-115)
--- NOTE | 2025-08-04 11:51 | PM.CNGS ---
History of Present Illness Consult details Consult date: 08/04/25 Reason for consult: wound care Narrative: Poorly controlled diabetic presents for follow-up evaluation status post toe amputation. She underwent right 2nd toe amputation on 07/27/2025 and had to be held in the hospital due to elevated blood sugars. She was subsequently discharged and appears to be doing somewhat better. There is concern about redness on her foot. In addition she was experiencing fevers and chills and she was subsequently admitted. She is in the process of being worked up. Of note last hemoglobin A1c is 12. White count on admission is 13.9. Of note prior to admission she noted some GI discomfort and diarrhea. She did attribute this to bad [place] food. Review of Systems Review of Systems: Yes all other systems are reviewed and are negative Constitutional: Constitutional: Reports no additional constitutional complaints ENT: Reports Normal hearing present Cardiovascular: Cardiovascular: Denies chest pain, Denies chest pain at rest, Denies chest pain with activity and Denies pedal edema Respiratory: Respiratory: Denies cough Gastrointestinal: Gastrointestinal: Denies abdominal pain Musculoskeletal: Musculoskeletal: Denies abnormal gait, Denies muscle cramps and Denies radiating pain into limb Integumentary/Breasts: Skin/Breast: Denies skin ulcer and Denies wounds Neurologic: Reports Normal hearing present and Denies abnormal gait Psychiatric: Psychiatric: Reports no additional psychiatric complaints PMFSH Past Medical History Medical History LBBB (left bundle branch block) Hx of drainage of abscess DVT (deep venous thrombosis) Arthritis Low back pain Diabetes Elevated cholesterol Colon polyps [place] esophagus Bronchial asthma HTN (hypertension) Polycythemia Current use of anticoagulant therapy Family History Family History Father Heart disease Afib Heart attack Maternal Grandmother Lung cancer Maternal Grandfather Prostate CA Paternal Grandmother Heart attack Paternal Grandfather Heart attack Surgical History Surgical History S/P aortogram History of esophagogastroduodenoscopy (EGD) Previous back surgery Hx of colonoscopy History of hysterectomy History of delivery History of appendectomy History of cholecystectomy Social History Social History Household Members: Spouse Housing: Apartment Are you a primary home care associate to a significant other at home: No Do you presently have visiting nurse or other home services: Yes (vna) Alcohol intake: former Comment: COUNTS CORRECT Patient Tobacco Use Status: Former Tobacco user Tobacco use type: Cigarette Cigarette Packs Per Day: 1 Years Smoked: 25 Use of substances other than those prescribed or required for medical reasons: No Substance Use Type: Marijuana Currently Displaying Signs/Symptoms of Drug Intoxication Withdrawal: No Have you been hit, kicked, punched, or otherwise hurt by someone within the past year? If so, by whom?: No Do you feel safe in your current relationship?: Yes Is there a partner from a previous relationship who is making you feel unsafe now?: No Are you made to feel afraid or neglected: No Advance Directives: Yes Advance Directives Information Provided: Yes Advance Directives on File: No Advance Directives Date on File: 07/27/25 Do you have a plan to hurt others: No Plan Recently lost weight without trying: No Nutrition Risks: No Nutritional Risk Patient : No : No Poor oral hygiene: No service: No Current occupational status: retired [employer] Allergies Allergy/AdvReac Type Severity Reaction Status Date / Time droperidol (From INAPSINE) Allergy Severe Anaphylaxis Verified 08/03/25 14:14 egg (EGG) Allergy Severe Nausea and Verified 08/03/25 14:14 Vomiting latex (LATEX) Allergy Severe HIVES Verified 08/03/25 14:14 metformin (METFORMIN) Allergy Severe DIZZINESS Verified 08/03/25 14:14 AND NAUSEA penicillin V Allergy Severe RASH Verified 08/03/25 14:14 codeine (CODEINE) Allergy Intermediate Rash Verified 08/03/25 14:14 Hydrocodone Bitartrate Allergy Intermediate Rash Uncoded 07/27/25 09:20 Active Medications: Current Medications Acetaminophen (Acetaminophen 325 Mg Tablet) 650 mg PO Q6H PRN PRN Reason: Pain, Mild 1-3,fever,headache Atorvastatin Calcium (Atorvastatin Calcium 40 Mg Tablet) 40 mg PO BEDTIME [facility] Last Admin: 08/03/25 20:31 Dose: 40 mg Calcium Carbonate (Calcium Carbonate 750 Mg Tab.Chew) 750 mg PO Q4H PRN PRN Reason: Heartburn Dextrose (Dextrose 50 % 25 Gm/50 Ml Syringe) 25 gm IVPUSH Q15M PRN; Protocol PRN Reason: per Hypoglycemia Standing Ord. Fluticasone Propionate (Fluticasone Propionate Nasal 16 Gm [place]) 2 spray NOSTRIL-B DAILY [facility] Last Admin: 08/04/25 08:41 Dose: 2 spray Glucose (Glucose Gel 15 Gm Gel..Gram.) 15 gm PO Q15M PRN; Protocol PRN Reason: per Hypoglycemia Standing Ord. Vancomycin HCl 1,000 mg/ (Sodium Chloride) 270 mls @ 270 mls/hr IV Q12H [facility] Last Infusion: 08/04/25 06:44 Dose: Infused Insulin Human Lispro (Insulin Lispro 100 Unit/Ml 3 Ml Vial) 0 unit SUBCUT QIDACHS [facility]; Protocol Last Admin: 08/04/25 08:40 Dose: Not Given Lisinopril (Lisinopril 5 Mg Tablet) 5 mg PO BEDTIME [facility]; Protocol Last Admin: 08/03/25 20:34 Dose: 5 mg Loratadine (Loratadine 10 Mg Tablet) 10 mg PO DAILY [facility] Last Admin: 08/04/25 08:42 Dose: 10 mg Magnesium Hydroxide (Milk Of Magnesia 30 Ml Oral.Susp) 30 ml PO DAILY PRN PRN Reason: Constipation Melatonin (Melatonin 3 Mg Tablet) 6 mg PO BEDTIME PRN PRN Reason: Insomnia Omeprazole (Omeprazole 20 Mg Capsule.Dr) 20 mg PO DAILY@0630 [facility] Last Admin: 08/04/25 05:39 Dose: 20 mg Pharmacy Consult (Consult Rx Vancomycin Dosing) 1 each MISCELLANE DAILY PRN PRN Reason: Consult order Sodium Chloride (0.9 % Sodium Chloride Flush 3 Ml Syringe) 3 ml IVFLUSH QSHIFT [facility] Last Admin: 08/04/25 08:40 Dose: 3 ml Tramadol HCl (Tramadol Hcl 50 Mg Tablet) 50 mg PO Q8H PRN PRN Reason: Pain, Moderate(Pain Scale 4-6) Last Admin: 08/04/25 08:43 Dose: 50 mg Vitamin D (Cholecalciferol (Vitamin D3) 25 Mcg Tablet) 50 mcg PO DAILY [facility] Last Admin: 08/04/25 08:39 Dose: 50 mcg Warfarin Sodium (Warfarin Sodium 7.5 Mg Tablet) 7.5 mg PO SUTUWEFRSA@1800 [facility] Warfarin Sodium (Warfarin Sodium 5 Mg Tablet) 5 mg PO MOTH@1800 [facility] Last Admin: 08/03/25 19:33 Dose: 5 mg Home Medications ?Medication ?Instructions ?Recorded ?Confirmed ?Last Taken ?Type celecoxib 200 mg capsule 200 mg PO BID 10/25/20 08/03/25 08/03/25 History cholecalciferol (vitamin D3) 50 50 mcg PO DAILY 10/25/20 08/03/25 08/03/25 History mcg (2,000 unit) capsule (Vitamin D3) omeprazole 20 mg capsule,delayed 20 mg PO DAILY@0630 10/25/20 08/03/25 08/03/25 History release blood sugar diagnostic #10 ea 11/08/20 07/27/25 Unknown History atorvastatin 40 mg tablet 40 mg PO BEDTIME 12/09/20 08/03/25 08/02/25 History empagliflozin 25 mg tablet 25 mg PO DAILY 12/09/20 08/03/25 08/03/25 History loratadine 10 mg tablet (Claritin) 10 mg PO DAILY 08/29/23 08/03/25 08/03/25 History lisinopril 5 mg tablet 5 mg PO BEDTIME 09/26/23 08/03/25 08/02/25 History warfarin 5 mg tablet 5 mg PO MOTH@1800 03/17/25 08/03/25 07/30/25 History warfarin 5 mg tablet 7.5 mg PO SUTUWEFRSA@1800 03/17/25 08/03/25 08/02/25 History fluticasone propionate 50 2 spray intranasal DAILY 04/21/25 08/03/25 08/03/25 History mcg/actuation nasal spray,suspension tirzepatide 7.5 mg/0.5 mL 7.5 mg subcut SA 06/25/25 08/03/25 08/01/25 History subcutaneous pen injector (Mounjaro) Physical Exam Vital Signs: Vital Signs: Last Vital Signs Temp 97.8 F 08/04/25 07:34 Pulse 96 08/04/25 07:34 Resp 17 08/04/25 07:34 BP 99/57 L 08/04/25 07:34 Pulse Ox 97 08/04/25 07:34 O2 Del Method Room Air 08/04/25 07:34 BMI result Body Mass Index 32.7 Const: General: cooperative, healthy appearing and comfortable Orientation/consciousness: oriented to person, oriented to place and oriented to time HEENT: Head: Yes normal to inspection Neck: Neck: Yes normal visual inspection Carotids: no bruits Chest: Chest palpation & inspection: normal inspection of the chest Resp: Effort & Inspection: normal respiratory effort and able to speak in complete sentences Auscultation: clear to auscultation bilaterally, no crackles, no rales, no rhonchi and no wheezes Cardio: Rate: regular rate Rhythm: regular rhythm Heart sounds: S1 normal heart sound present and S2 normal heart sound present Bruits: no carotid bruits Peripheral pulses: Peripheral pulses 2+ throughout GI: Inspection: Yes normal to inspection Skin: Other: Amputation site appears intact some mild erythema surrounding it. Wounds: no wounds Hair: normal Neuro: General: oriented to person, oriented to place and oriented to time Cranial nerves: Yes CN's II-XII intact bilaterally and Yes Normal hearing present Cognition (Neuro): normal cognition Motor exam (neuro): 5/5 motor strength present throughout Extrem: Other: venous exam: No significant superficial varicosities or spider telangiectasias, minimal edema General: No clubbing, No cyanosis and No edema Psych: Appearance: grossly normal Mental Status: mental status grossly normal Speech and movement: Normal speech and movement present Results Labs 08/04/25 05:40 08/04/25 05:40 Labs: Abnormal lab results 08/03/25 08/03/25 08/04/25 Range/Units 15:29 20:27 05:40 WBC 13.9 H 11.5 H (4.8-10.8) X10*3/uL MPV 9.3 L (9.4-12.3) fL Immature Gran % (Auto) 0.5 H (0.0-0.4) % Neut % (Auto) 82.5 H 79.1 H (45-73) % Lymph % (Auto) 10.2 L 12.3 L (20-40) % Abs Immat Gran (auto) 0.07 H (0.00-0.03) X10*3/uL Absolute Neuts (auto) 11.4 H 9.1 H (2.0-8.3) x10*3/uL PT 22.3 H D 23.6 H (10.9-12.4) SEC INR 1.9 H 2.1 H (0.9-1.1) Carbon Dioxide 21 L 16 L (22-29) mmol/L BUN 17 H 19 H (9-16) mg/dL POC Glucose 145 H (60-115) mg/dL Random Glucose 206 H 181 H (60-115) mg/dL Hemoglobin A1c % 12.0 H (<6.0) % 08/04/25 08/04/25 Range/Units 07:39 11:13 WBC (4.8-10.8) X10*3/uL MPV (9.4-12.3) fL Immature Gran % (Auto) (0.0-0.4) % Neut % (Auto) (45-73) % Lymph % (Auto) (20-40) % Abs Immat Gran (auto) (0.00-0.03) X10*3/uL Absolute Neuts (auto) (2.0-8.3) x10*3/uL PT (10.9-12.4) SEC INR (0.9-1.1) Carbon Dioxide (22-29) mmol/L BUN (9-16) mg/dL POC Glucose 143 H 241 H (60-115) mg/dL Random Glucose (60-115) mg/dL Hemoglobin A1c % (<6.0) % Short CBC 08/03/25 08/04/25 Range/Units 15:29 05:40 WBC 13.9 H 11.5 H (4.8-10.8) X10*3/uL Hgb 15.1 13.8 (12.0-16.0) g/dl Hct 44.5 41.1 (37.0-47.0) % Plt Count 330 D 284 (160-400) X10*3/uL BMP 08/03/25 08/04/25 15:29 05:40 Sodium 138 137 Potassium 4.2 4.0 Chloride 103 106 Carbon Dioxide 21 L 16 L BUN 17 H 19 H Creatinine 0.74 0.67 Calcium 9.4 D 8.8 D All other labs normal. Assessment and Plan (1) PAD (peripheral artery disease): Status: Acute Plan In short patient has surrounding cellulitis. Unclear what the source of her issues are at the current time would workup for other sources of infection. At the current time would continue with IV antibiotics. Most likely can be discharged with p.o. antibiotics. Wound care dressings at the current time would do alginate with 4 x 4 and Kerlix wrap to be changed daily. We will continue to follow with you. Thank you for allowing us to assist in her care. Procedures Date of Service Date of Service: 08/04/25
--- NOTE | 2025-08-04 14:02 | P.DS_ITS ---
DS: Providers Provider Date of Service: 08/04/25 Date of admission: 08/03/25 16:13 Date of discharge: 08/04/25 Primary care physician: Jewel Nuñez MD Consults: 08/03/25 16:29 Consult to Vascular Surgery Routine Consulting Provider: [facility] Services Reason for consultation: right foot infection Has provider been notified: No DS: Diagnosis Discharge Diagnosis (1) Polycythemia: Status: Chronic DS: Summary Hospital Course Hospital Course: Very pleasant 64-year-old female underwent right carotid endarterectomy on 08/03/2025. Postoperatively did well and was observed in the ICU. She did have some desaturation down to 88% but overall did fairly well. Postop day 1 was tolerating a regular diet voided freely and was up ambulating. She was subsequently discharged. Condition upon discharge was stable she was on regular diet. She was given home O2 at 1 L to use at home. Status at Discharge Functional status at discharge: independent ambulation Overall status at discharge: patient is back to baseline Time Attestation Discharge Coordination Time (in mins): 35 Quality: Safe Use of Opioids Does Pt have an Active Cancer Diagnosis on the Problem List?: No Quality: Stroke Does the patient have a stroke diagnosis?: No Physical Exam Vital Signs: Vital Signs: Last Vital Signs Temp 97.8 F 08/04/25 07:34 Pulse 96 08/04/25 07:34 Resp 17 08/04/25 07:34 BP 99/57 L 08/04/25 07:34 Pulse Ox 97 08/04/25 07:34 O2 Del Method Room Air 08/04/25 07:34 BMI result Body Mass Index 32.7 Const: General: cooperative, healthy appearing and comfortable Orientati on/consciousness: oriented to person, oriented to place and oriented to time HEENT: Head: Yes normal to inspection Neck: Neck: Yes normal visual inspection Carotids: no bruits Chest: Chest palpation & inspection: normal inspection of the chest Resp: Effort & Inspection: normal respiratory effort and able to speak in complete sentences Auscultation: clear to auscultation bilaterally, no crackles, no rales, no rhonchi and no wheezes Cardio: Rate: regular rate Rhythm: regular rhythm Heart sounds: S1 normal heart sound present and S2 normal heart sound present Bruits: no carotid bruits Peripheral pulses: Peripheral pulses 2+ throughout GI: Inspection: Yes normal to inspection Skin: Other: Right neck incision healing well Wounds: no wounds Hair: normal Neuro: General: oriented to person, oriented to place and oriented to time Cranial nerves: Yes CN's II-XII intact bilaterally and Yes Normal hearing present Cognition (Neuro): normal cognition Motor exam (neuro): 5/5 motor strength present throughout Extrem: Other: venous exam: No significant superficial varicosities or spider telangiectasias, minimal edema General: No clubbing, No cyanosis and No edema Psych: Appearance: grossly normal Mental Status: mental status grossly normal Speech and movement: Normal speech and movement present DS: Data Data Completed and Pending Labs on day of discharge: Laboratory Results - last 24 hr 08/03/25 08/03/25 08/04/25 15:29 20:27 05:40 WBC 13.9 H 11.5 H RBC 5.05 4.63 Hgb 15.1 13.8 Hct 44.5 41.1 MCV 88.1 88.8 MCH 29.9 29.8 MCHC 33.9 33.6 RDW 13.6 13.4 Plt Count 330 D 284 MPV 9.3 L 9.5 Immature Gran % (Auto) 0.5 H 0.3 Neut % (Auto) 82.5 H 79.1 H Lymph % (Auto) 10.2 L 12.3 L [place] % (Auto) 6.3 7.8 Eos % (Auto) 0.1 0.2 Baso % (Auto) 0.4 0.3 Lymph # (Auto) 1.4 1.4 [place] # (Auto) 0.9 0.9 Eos # (Auto) 0.0 0.0 Baso # (Auto) 0.1 0.0 Abs Immat Gran (auto) 0.07 H 0.03 Absolute Neuts (auto) 11.4 H 9.1 H Absolute Nucleated RBC 0.000 0.000 Nucleated RBC % (auto) 0.0 0.0 Smear Tech's Comments VERIFIED PT 22.3 H D 23.6 H INR 1.9 H 2.1 H Sodium 138 137 Potassium 4.2 4.0 Chloride 103 106 Carbon Dioxide 21 L 16 L Anion Gap 18 19 BUN 17 H 19 H Creatinine 0.74 0.67 Estim Creat Clear Calc 91.3 100.8 Estimated GFR > 60 > 60 POC Glucose 145 H Random Glucose 206 H 181 H Estimat Average Glucose 298 Hemoglobin A1c % 12.0 H Lactic Acid 1.3 Calcium 9.4 D 8.8 D 08/04/25 08/04/25 07:39 11:13 WBC RBC Hgb Hct MCV MCH MCHC RDW Plt Count MPV Immature Gran % (Auto) Neut % (Auto) Lymph % (Auto) [place] % (Auto) Eos % (Auto) Baso % (Auto) Lymph # (Auto) [place] # (Auto) Eos # (Auto) Baso # (Auto) Abs Immat Gran (auto) Absolute Neuts (auto) Absolute Nucleated RBC Nucleated RBC % (auto) Smear Tech's Comments PT INR Sodium Potassium Chloride Carbon Dioxide Anion Gap BUN Creatinine Estim Creat Clear Calc Estimated GFR POC Glucose 143 H 241 H Random Glucose Estimat Average Glucose Hemoglobin A1c % Lactic Acid Calcium Discharge Plan Discharge Anticipated Discharge Date/Time: 08/04/25 13:56 Patient Disposition: Home, Self-Care Discharge Diagnosis: Right carotid stenosis Referrals: Jewel Nuñez MD [Primary Care Provider, Internal Medicine] - 1 Week Discharge Medications: New oxycodone-acetaminophen [Percocet] 5-325 mg tablet 1 tab PO Q8H PRN (Reason: pain) Qty: 10 0RF Rx Instructions: Partial Fill upon patient request. Continued celecoxib 200 mg capsule 200 mg PO BID omeprazole 20 mg capsule,delayed release(DR/EC) 20 mg PO DAILY@0630 cholecalciferol (vitamin D3) [Vitamin D3] 50 mcg (2,000 unit) Capsule 50 mcg PO DAILY warfarin 5 mg Tablet 7.5 mg PO SUTUWEFRSA@1800 Protocol: Dose Management Condition: Sunday (Week One) Dose/Route: 0 mg Instruction: 0 tablets Condition: Sunday Dose/Route: 0 mg Instruction: 0 tablets Condition: Sunday Dose/Route: 0 mg Instruction: 0 tablets Condition: Sunday Dose/Route: 7.5 mg Instruction: 1.5 x 5 mg tablets Condition: Dose/Route: 10 mg Instruction: 2 x 5 mg tablets Condition: Sunday Dose/Route: 7.5 mg Instruction: 1.5 x 5 mg tablets Condition: Sunday Dose/Route: 7.5 mg Instruction: 1.5 x 5 mg tablets Condition: Sunday (Week Two) Dose/Route: 7.5 mg Instruction: 1.5 x 5 mg tablets Condition: Sunday Dose/Route: 5 mg Instruction: 1 x 5 mg tablet Condition: Sunday Dose/Route: 7.5 mg Instruction: 1.5 x 5 mg tablets Condition: Sunday Dose/Route: 7.5 mg Instruction: 1.5 x 5 mg tablets Condition: Dose/Route: 5 mg Instruction: 1 x 5 mg tablet Condition: Sunday Dose/Route: 7.5 mg Instruction: 1.5 x 5 mg tablets Condition: Sunday Dose/Route: 7.5 mg Instruction: 1.5 x 5 mg tablets Protocol Text: Adjustment Start Date: 07/30/25 INR Value: 1.1 INR Date: 07/27/25 Recheck Date: 08/03/25 warfarin 5 mg tablet 5 mg PO MOTH@1800 Protocol: Dose Management Condition: Sunday (Week One) Dose/Route: 0 mg Instruction: 0 tablets Condition: Sunday Dose/Route: 0 mg Instruction: 0 tablets Condition: Sunday Dose/Route: 0 mg Instruction: 0 tablets Condition: Sunday Dose/Route: 7.5 mg Instruction: 1.5 x 5 mg tablets Condition: Dose/Route: 10 mg Instruction: 2 x 5 mg tablets Condition: Sunday Dose/Route: 7.5 mg Instruction: 1.5 x 5 mg tablets Condition: Sunday Dose/Route: 7.5 mg Instruction: 1.5 x 5 mg tablets Condition: Sunday (Week Two) Dose/Route: 7.5 mg Instruction: 1.5 x 5 mg tablets Condition: Sunday Dose/Route: 5 mg Instruction: 1 x 5 mg tablet Condition: Sunday Dose/Route: 7.5 mg Instruction: 1.5 x 5 mg tablets Condition: Sunday Dose/Route: 7.5 mg Instruction: 1.5 x 5 mg tablets Condition: Dose/Route: 5 mg Instruction: 1 x 5 mg tablet Condition: Sunday Dose/Route: 7.5 mg Instruction: 1.5 x 5 mg tablets Condition: Sunday Dose/Route: 7.5 mg Instruction: 1.5 x 5 mg tablets Protocol Text: Adjustment Start Date: 07/30/25 INR Value: 1.1 INR Date: 07/27/25 Recheck Date: 08/03/25 (DME) Durafiber Dressing 2 X 2 bandage See Rx Instructions .Route Qty: 200 0RF Rx Instructions: As directed (DME) gauze bandage 1 X 5 -yard bandage See Rx Instructions .Route Qty: 12 0RF Rx Instructions: As directed tramadol 50 mg tablet 50 mg PO Q8H PRN (Reason: pain) Qty: 14 0RF (DME) blood sugar diagnostic Strip See Rx Instructions Not Applicable BID Qty: 10 Rx Instructions: As directed atorvastatin 40 mg tablet 40 mg PO BEDTIME empagliflozin 25 mg tablet 25 mg PO DAILY lisinopril 5 mg tablet 5 mg PO BEDTIME Mounjaro 7.5 mg/0.5 mL pen injector 7.5 mg subcut SA Rx Instructions: takes on Saturdays loratadine [Claritin] 10 mg tablet 10 mg PO DAILY fluticasone propionate 50 mcg/actuation spray,suspension 2 spray intranasal DAILY Discharge Orders: Discharge Order (Routine); Ordered 08/04/25 Ordered By: Hermann Adams Diet: Advance to usual diet Activity on Discharge: As tolerated Stand Alone Forms: Patient Portal Discharge page Print Language: Russian Activity Restrictions/Additional Instructions: Skin tape was used and you may shower as early as tomorrow. Take it easy today and you may ambulate around the house. Within 24 hours you can resume normal activity You may climb a flight of stairs as tolerated Do not lift anything heavier than a gallon of milk for [address] Adams in follow-up in approximately 2 weeks time. You should already have an appointment if not please call my office at [phone] Please resume Coumadin starting tomorrow. Please use Tylenol and Percocet as needed for pain If you notice excessive bleeding from the neck please immediately call my off ice or return to the emergency room. Care Plan Goals: Carotid surveillance follow-up Health Concerns: Status post right carotid endarterectomy Plan of Treatment: Ultrasound surveillance of carotid Assessment: Status post right carotid endarterectomy
[2025-08-04] MEDS: cefEPime HCl/D5W 2 GM/50 ML PIGGYBACK IV (14:34)
[2025-08-04 15:40] VITALS: BP 96/67; PULSE 112; TEMP 36.6; O2SAT 93
[2025-08-04 16:00] VITALS: BP 107/59; PULSE 109; RESP 20; TEMP 36.6; O2SAT 94
--- NOTE | 2025-08-04 16:10 | PM.EVENT ---
Event Note Date of Service: 08/04/25 Event Note: c/o Abd pain Will check CT A/P with contrast , GI , C diff Fluids lactate Time Spent With Patient Time: Total time managing care of this patient today ____ minutes.
[2025-08-04 16:40] LABS: Glucose, Whole Blood 208 mg/dL (60-115)
[2025-08-04 16:51] LABS: MANUAL DIFF FLAG NO
[2025-08-04 16:52] LABS: Hematocrit 40.4 % (37.0-47.0); Hemoglobin 13.7 g/dl (12.0-16.0); Imm Gran Abs Auto 0.05 X10*3/uL (0.00-0.03); Imm Gran Pct Auto 0.4 % (0.0-0.4); Lymphocytes Absolute Auto 0.9 X10*3/uL (1.2-4.9); Mean Corpuscular HGB Conc 33.9 g/dl (31.0-35.0); Mean Corpuscular Hemoglobin 29.8 pg (27.0-33.0); Mean Corpuscular Volume 87.8 fL (80.0-98.0); NRBC Abs Auto 0.000 X10*3/uL (0.0-0.012); NRBC Pct Auto 0.0 /100WBC (0.0-0.2); Platelet Count 274 X10*3/uL (160-400); Red Blood Count 4.60 X10*6/uL (4.20-5.50); White Blood Count 11.8 X10*3/uL (4.8-10.8)
[2025-08-04 16:57] LABS: INTERNATIONAL NORM RATIO 2.3 (0.9-1.1); Prothrombin Time 26.0 SEC (10.9-12.4)
[2025-08-04] MEDS: 0.9 % Sodium Chloride 2,925.66 ML 2925.66 ML IV (17:10)
[2025-08-04 17:11] LABS: Alanine Aminotransferase 56 U/L (0-31); Albumin Level 3.0 g/dL (3.5-5.0); Alkaline Phosphatase 164 U/L (39-117); Anion Gap 15 (12-20); Aspartate Amino Transferase 20 U/L (5-31); Blood Urea Nitrogen 22 mg/dL (9-16); Calcium 9.0 mg/dL (8.4-10.2); Carbon Dioxide 18 mmol/L (22-29); Chloride 106 mmol/L (96-108); Creatinine Clr Calc Pharmacy 81.3; Estimated Glomerular Filt Rate > 60; Potassium 4.1 mmol/L (3.3-5.1); Sodium 135 mmol/L (135-145); Total Protein 6.2 g/dL (6.5-8.0)
[2025-08-04 18:25] LABS: Glucose, Whole Blood 171 mg/dL (60-115)
[2025-08-04] MEDS: iohexoL 350 MG/ML 100 ML INFUS..BTL 85 ML IV (19:27)
[2025-08-04 20:00] VITALS: BP 117/58; PULSE 91; RESP 19; TEMP 36.1; O2SAT 97
[2025-08-04 20:57] LABS: Glucose, Whole Blood 126 mg/dL (60-115)
--- NOTE | 2025-08-04 21:11 | PC.NURSE ---
pt reported intermittent abdominal symptoms this shift. hiccups for approx 5-10 min, cramping, twinges, belching, heartburn, reflux, poor appetite, mild nausea then increasing nausea. bp soft but wnl all shift, HR elevated this afternoon as noted to 112. MD aware, iv abx given, labs ordered and drawn. IV fluids started. Order for Vitamin K with pt having scheduled coumadin questioned, pharmacy aware and stated they had dc'd the coumadin. Pt with therapeutic INR for hx multiple blood clots, no bleeding noted. Consulted with MD's Cheryl, Zheng, and Esvin in office to clarify as Dr. Floyd had gone home. per Dr. Calzada and Cheryl, Bolus stopped after the 1 liter that had just finished, and continue the continuous infusion. Hold the vitamin K but also hold the coumadin. Pt went to CT scan and tolerated well. She states she feels better this evening and has had no further chills/sweats.
[2025-08-05 03:41] VITALS: BP 121/58; PULSE 96; RESP 18; TEMP 36.7; O2SAT 98
[2025-08-05 06:30] LABS: MANUAL DIFF FLAG NO
[2025-08-05 06:39] LABS: Hematocrit 41.7 % (37.0-47.0); Hemoglobin 13.4 g/dl (12.0-16.0); Imm Gran Abs Auto 0.06 X10*3/uL (0.00-0.03); Imm Gran Pct Auto 0.7 % (0.0-0.4); Lymphocytes Absolute Auto 0.8 X10*3/uL (1.2-4.9); Mean Corpuscular HGB Conc 32.1 g/dl (31.0-35.0); Mean Corpuscular Hemoglobin 28.9 pg (27.0-33.0); Mean Corpuscular Volume 89.9 fL (80.0-98.0); NRBC Abs Auto 0.000 X10*3/uL (0.0-0.012); NRBC Pct Auto 0.0 /100WBC (0.0-0.2); Platelet Count 277 X10*3/uL (160-400); Red Blood Count 4.64 X10*6/uL (4.20-5.50); White Blood Count 8.4 X10*3/uL (4.8-10.8)
[2025-08-05 06:58] LABS: Alanine Aminotransferase 53 U/L (0-31); Albumin Level 3.1 g/dL (3.5-5.0); Alkaline Phosphatase 158 U/L (39-117); Anion Gap 18 (12-20); Aspartate Amino Transferase 24 U/L (5-31); Blood Urea Nitrogen 14 mg/dL (9-16); Calcium 8.4 mg/dL (8.4-10.2); Carbon Dioxide 15 mmol/L (22-29); Chloride 109 mmol/L (96-108); Creatinine Clr Calc Pharmacy 100.8; Estimated Glomerular Filt Rate > 60; Magnesium 1.8 mg/dL (1.6-2.6); Potassium 3.9 mmol/L (3.3-5.1); Sodium 138 mmol/L (135-145); Total Protein 6.3 g/dL (6.5-8.0)
[2025-08-05 07:04] LABS: INTERNATIONAL NORM RATIO 2.0 (0.9-1.1); Prothrombin Time 22.7 SEC (10.9-12.4)
[2025-08-05 07:46] LABS: Glucose, Whole Blood 147 mg/dL (60-115)
[2025-08-05 08:00] VITALS: BP 100/60; PULSE 100; RESP 16; TEMP 37; O2SAT 97
[2025-08-05 10:39] VITALS: TEMP 37.4
--- NOTE | 2025-08-05 11:12 | MHC.CM.PN ---
Per MD rounds patient not medically cleared for dc. Potential dc tomorrow. Tonyara updated. CM will continue to follow.
[2025-08-05 11:34] LABS: Glucose, Whole Blood 135 mg/dL (60-115)
--- NOTE | 2025-08-05 11:39 | HO.VASCPN ---
Subjective Subjective Date of Service: 08/05/25 Patient reports: no new complaints and feels better Interval history: Patient seen and examined. No significant events overnight. Appears to be doing significantly better today. Denies any fevers and chills that she had been experiencing yesterday. At the current time appears to be somewhat better. Physical Exam Vital Signs: Vital Signs: Last Vital Signs Temp 99.3 F 08/05/25 10:39 Pulse 100 08/05/25 08:00 Resp 16 08/05/25 08:00 BP 100/60 08/05/25 08:00 Pulse Ox 97 08/05/25 08:00 O2 Del Method Room Air 08/05/25 08:00 BMI result Body Mass Index 32.7 Const: General: cooperative, healthy appearing and comfortable Orientation/consciousness: oriented to person, oriented to place and oriented to time HEENT: Head: Yes normal to inspection Neck: Neck: Yes normal visual inspection Carotids: no bruits Chest: Chest palpation & inspection: normal inspection of the chest Resp: Effort & Inspection: normal respiratory effort and able to speak in complete sentences Auscultation: clear to auscultation bilaterally, no crackles, no rales, no rhonchi and no wheezes Cardio: Rate: regular rate Rhythm: regular rhythm Heart sounds: S1 normal heart sound present and S2 normal heart sound present Bruits: no carotid bruits Peripheral pulses: Peripheral pulses 2+ throughout GI: Inspection: Yes normal to inspection Skin: Other: Toe amputation site with cellulitis Wounds: no wounds Hair: normal Neuro: General: oriented to person, oriented to place and oriented to time Cranial nerves: Yes CN's II-XII intact bilaterally and Yes Normal hearing present Cognition (Neuro): normal cognition Motor exam (neuro): 5/5 motor strength present throughout Extrem: Other: venous exam: No significant superficial varicosities or spider telangiectasias, minimal edema General: No clubbing, No cyanosis and No edema Psych: Appearance: grossly normal Mental Status: mental status grossly normal Speech and movement: Normal speech and movement present Progress Note: A&P Assessment and plan (1) PAD (peripheral artery disease): Status: Acute Assessment and Plan: In short patient has cellulitis of the foot after toe amputation. In general unclear about her overall condition. May benefit from an ID evaluation. I do not believe that her foot could be the overall cause of her GI symptoms fevers chills does not appear to be a source of sepsis. Continue IV antibiotics. We will follow with you. Thank you for allowing us to assist in her care Time Spent With Patient Time: Total time managing care of this patient today ____ minutes. Procedures Date of Service Date of Service: 08/05/25 Quality Stroke Does the patient have a stroke diagnosis?: No VTE Prior VTE?: No VTE Risk Level:: Medical - moderate - high VTE Device Contraindication: N/A - Device Ordered VTE Drug Contraindication: N/A - Med Ordered
[2025-08-05] MEDS: cefEPime HCl/D5W 2 GM/50 ML PIGGYBACK IV (15:06)
[2025-08-05 15:47] VITALS: BP 122/65; PULSE 85; RESP 20; TEMP 37.3; O2SAT 98
--- NOTE | 2025-08-05 16:23 | W.PM.IDCN ---
History of Present Illness Data of Consult Service Date: 08/05/25 Requesting physician: Ruthann Calzada Primary Care Provider: Jewel Nuñez MD HPI Reason for consult: right foot erythema She presents sent in by [facility] with malodourous area with redness right foot,first and third toe and plantar area under it. She had right second toe amputation on 07/[address] Adams. She had WBC of 13.9. She has PAD. Review of Systems Review of Systems: Yes all other systems are reviewed and are negative [facility] Past Medical History Medical History (Updated 08/05/25 @ 16:37 by Kylah Rosa MD) Cellulitis LBBB (left bundle branch block) Hx of drainage of abscess DVT (deep venous thrombosis) Arthritis Low back pain Diabetes Elevated cholesterol Colon polyps Mccormack esophagus Bronchial asthma HTN (hypertension) Polycythemia Current use of anticoagulant therapy Family History Family History Father Heart disease Afib Heart attack Maternal Grandmother Lung cancer Maternal Grandfather Prostate CA Paternal Grandmother Heart attack Paternal Grandfather Heart attack Family history: reviewed and not pertinent Surgical History Surgical History S/P aortogram History of esophagogastroduodenoscopy (EGD) Previous back surgery Hx of colonoscopy History of hysterectomy History of delivery History of appendectomy History of cholecystectomy Social History Social History Household Members: Spouse Housing: Apartment Are you a primary rn patient care to a significant other at home: No Do you presently have visiting nurse or other home services: Yes (vna) Alcohol intake: former Comment: pt rings appropriately for assistance to bathroom Patient Tobacco Use Status: Former Tobacco user Tobacco use type: Cigarette Cigarette Packs Per Day: 1 Years Smoked: 25 Use of substances other than those prescribed or required for medical reasons: No Substance Use Type: Marijuana Currently Displaying Signs/Symptoms of Drug Intoxication Withdrawal: No Have you been hit, kicked, punched, or otherwise hurt by someone within the past year? If so, by whom?: No Do you feel safe in your current relationship?: Yes Is there a partner from a previous relationship who is making you feel unsafe now?: No Are you made to feel afraid or neglected: No Advance Directives: Yes Advance Directives Information Provided: Yes Advance Directives on File: No Advance Directives Date on File: 07/27/25 Do you have a plan to hurt others: No Plan Recently lost weight without trying: No Nutrition Risks: No Nutritional Risk Patient : No : No Poor oral hygiene: No service: No Current occupational status: retired Meds Allergies Allergy/AdvReac Type Severity Reaction Status Date / Time droperidol (From INAPSINE) Allergy Severe Anaphylaxis Verified 08/03/25 14:14 egg (EGG) Allergy Severe Nausea and Verified 08/03/25 14:14 Vomiting latex (LATEX) Allergy Severe HIVES Verified 08/03/25 14:14 metformin (METFORMIN) Allergy Severe DIZZINESS Verified 08/03/25 14:14 AND NAUSEA penicillin V Allergy Severe RASH Verified 08/03/25 14:14 codeine (CODEINE) Allergy Intermediate Rash Verified 08/03/25 14:14 Hydrocodone Bitartrate Allergy Intermediate Rash Uncoded 07/27/25 09:20 Active Medications: Current Medications Acetaminophen (Acetaminophen 325 Mg Tablet) 975 mg PO Q8H PRN PRN Reason: Pain, Mild 1-3,fever,headache Atorvastatin Calcium (Atorvastatin Calcium 40 Mg Tablet) 40 mg PO BEDTIME [facility] Last Admin: 08/04/25 20:16 Dose: 40 mg Calcium Carbonate (Calcium Carbonate 750 Mg Tab.Chew) 750 mg PO Q4H PRN PRN Reason: Heartburn Last Admin: 08/04/25 14:04 Dose: 750 mg Celecoxib (Celecoxib 200 Mg Capsule) 200 mg PO BID [facility] Last Admin: 08/05/25 15:06 Dose: 200 mg Dextrose (Dextrose 50 % 25 Gm/50 Ml Syringe) 25 gm IVPUSH Q15M PRN; Protocol PRN Reason: per Hypoglycemia Standing Ord. Fluticasone Propionate (Fluticasone Propionate Nasal 16 Gm [place]) 2 spray NOSTRIL-B DAILY [facility] Last Admin: 08/05/25 07:49 Dose: 2 spray Glucose (Glucose Gel 15 Gm Gel..Gram.) 15 gm PO Q15M PRN; Protocol PRN Reason: per Hypoglycemia Standing Ord. Cefepime HCl (Maxipime) 2 gm in 50 mls @ 100 mls/hr IV Q24H [facility] Last Infusion: 08/05/25 16:00 Dose: Infused Sodium Chloride (Ns) 1,000 mls @ 100 mls/hr IVCONT .Q10H [facility] Last Infusion: 08/05/25 14:35 Dose: Infused Vancomycin HCl 1,250 mg/ (Sodium Chloride) 250 mls @ 166.667 mls/hr IV Q12H [facility] Insulin Human Lispro (Insulin Lispro 100 Unit/Ml 3 Ml Vial) 0 unit SUBCUT QIDACHS [facility]; Protocol Last Admin: 08/05/25 11:49 Dose: Not Given Loratadine (Loratadine 10 Mg Tablet) 10 mg PO DAILY [facility] Last Admin: 08/05/25 07:49 Dose: 10 mg Magnesium Hydroxide (Milk Of Magnesia 30 Ml Oral.Susp) 30 ml PO DAILY PRN PRN Reason: Constipation Melatonin (Melatonin 3 Mg Tablet) 6 mg PO BEDTIME PRN PRN Reason: Insomnia Ondansetron HCl (Ondansetron Hcl 4 Mg/2 Ml Vial) 4 mg IVPUSH Q4H PRN PRN Reason: Nausea and Vomiting Last Admin: 08/05/25 10:47 Dose: 4 mg Pantoprazole Sodium (Pantoprazole Sodium 40 Mg/10 Ml Vial) 40 mg IVPUSH DAILY@0630 [facility] Last Admin: 08/05/25 05:09 Dose: 40 mg Pharmacy Consult (Consult Rx Vancomycin Dosing) 1 each MISCELLANE DAILY PRN PRN Reason: Consult order Sodium Chloride (0.9 % Sodium Chloride Flush 3 Ml Syringe) 3 ml IVFLUSH QSHIFT [facility] Last Admin: 08/05/25 15:11 Dose: Not Given Tramadol HCl (Tramadol Hcl 50 Mg Tablet) 50 mg PO Q8H PRN PRN Reason: Pain, Moderate(Pain Scale 4-6) Last Admin: 08/05/25 13:08 Dose: 50 mg Vitamin D (Cholecalciferol (Vitamin D3) 25 Mcg Tablet) 50 mcg PO DAILY [facility] Last Admin: 08/05/25 07:49 Dose: 50 mcg Warfarin Sodium (Warfarin Sodium 5 Mg Tablet) 5 mg PO DAILY@1800 [facility] Home Medications ?Medication ?Instructions ?Recorded ?Confirmed ?Last Taken ?Type celecoxib 200 mg capsule 200 mg PO BID 10/25/20 08/03/25 08/03/25 History cholecalciferol (vitamin D3) 50 50 mcg PO DAILY 10/25/20 08/03/2525 History mcg (2,000 unit) capsule (Vitamin D3) omeprazole 20 mg capsule,delayed 20 mg PO DAILY@0630 10/25/20 08/03/25 08/03/25 History release blood sugar diagnostic #10 ea 11/08/20 07/27/25 Unknown History atorvastatin 40 mg tablet 40 mg PO BEDTIME 12/09/20 08/03/25 08/02/25 History empagliflozin 25 mg tablet 25 mg PO DAILY 12/09/20 08/03/25 08/03/25 History loratadine 10 mg tablet (Claritin) 10 mg PO DAILY 08/29/23 08/03/25 08/03/25 History lisinopril 5 mg tablet 5 mg PO BEDTIME 09/26/23 08/03/25 08/02/25 History warfarin 5 mg tablet 5 mg PO MOTH@1800 03/17/25 08/03/25 07/30/25 History warfarin 5 mg tablet 7.5 mg PO SUTUWEFRSA@1800 03/17/25 08/03/25 08/02/25 History fluticasone propionate 50 2 spray intranasal DAILY 04/21/25 08/03/25 08/03/25 History mcg/actuation nasal spray,suspension tirzepatide 7.5 mg/0.5 mL 7.5 mg subcut SA 06/25/25 08/03/25 08/01/25 History subcutaneous pen injector (Mounjaro) Physical Exam Vital Signs: Vital Signs: Last Vital Signs Temp 99.2 F 08/05/25 15:47 Pulse 85 08/05/25 15:47 Resp 08/05/25 15:47 BP 122/65 08/05/25 15:47 Pulse Ox 98 08/05/25 15:47 O2 Del Method Room Air 08/05/25 15:47 BMI result Body Mass Index 32.7 Const: General: cooperative HEENT: Head: Yes normal to inspection Face and sinus: Yes normal facial exam Mouth: Normal oral and palatal mucosa present Teeth and gingiva: dentition normal Eyes: General: appearance normal, both eyes and all related structures Pupils: Equal, round and reactive pupils present Resp: Effort & Inspection: normal respiratory effort Cardio: Rate: regular rate Rhythm: regular rhythm GI: Palpation (GI): Soft to palpation and nontender : General: Yes no CVA tenderness Back/Spine/Pelvis: Back: no CVA tenderness Skin: General skin exam: no rashes or lesions noted Neuro: General: moves all extremities Cranial nerves: Yes Equal, round and reactive pupils present Extrem: Other: right second toe redness plantar and 1 and 3 digits Psych: Appearance: grossly normal Results Labs 08/05/25 06:05 08/05/25 06:05 Labs: Short CBC 08/04/25 08/05/25 Range/Units 16:39 06:05 WBC 11.8 H 8.4 (4.8-10.8) X10*3/uL Hgb 13.7 13.4 (12.0-16.0) g/dl Hct 40.4 41.7 (37.0-47.0) % Plt Count 274 277 (160-400) X10*3/uL BMP 08/04/25 08/05/25 16:39 06:05 Sodium 135 138 Potassium 4.1 3.9 Chloride 106 109 H Carbon Dioxide 18 L 15 L BUN 22 H 14 Creatinine 0.83 0.67 Calcium 9.0 8.4 D Liver Function 08/04/25 08/05/25 Range/Units 16:39 06:05 Total Bilirubin 0.3 0.3 (0.0-1.0) mg/dL AST 20 24 (5-31) U/L ALT 56 H 53 H (0-31) U/L Alkaline Phosphatase 164 H 158 H (39-117) U/L Albumin 3.0 L 3.1 L (3.5-5.0) g/dL Microbiology Microbiology Results: Microbiology 08/03/25 15:29 Blood - Venous Blood Culture - Preliminary No growth after 24 hours. 08/03/25 15:29 Blood - Venous Blood Culture - Preliminary No growth after 24 hours. Assessment and Plan (1) PAD (peripheral artery disease): Status: Acute (2) Cellulitis: Status: Acute Plan She has cellulitis right foot. Gram positive infection possible. WBC is 13.9 and pulse 100,sepsis concern Would continue Cefepime and Vancomycin Await cultures. Probable six weeks IV antibiotics,possible Vancomycin or Daptomycin.
[2025-08-05 16:28] LABS: Glucose, Whole Blood 148 mg/dL (60-115)
[2025-08-05 17:57] LABS: Appearance Urine Cloudy; Glucose Urine UA >=1000 mg/dL (Negative); PH 6.0 (5.0-9.0); Specific Gravity - Urine >= 1.030 (1.005-1.025); UMIC TRIGGER UA YES
--- NOTE | 2025-08-05 18:54 | HO.PM.IMPN ---
Subjective Subjective Date of Service: 08/05/25 Interval History: Continues to experience on and off fever and chills No longer experiencing nausea, vomiting, or diarrhea Mild central abdominal discomfort No chest pain/pressure, palpitations Denies shortness or breath or difficulty breathing Review of Systems Review of Systems: Yes all other systems are reviewed and are negative Physical Exam Exam: Exam: General: AOx3, no acute distress Resp: CTA bilaterally CVS: S1, S2, RRR GI: +BS, no distention, mild central abd tenderness Skin: Warm, dry Neuro: Cranial nerves II-XII grossly intact bilaterally. Motor grossly intact bilaterally Extremities: No edema. Right foot covered in clean and dry dressing. Psych: Appropriate affect Vital Signs: Vital Signs: Last Vital Signs Temp 99.2 F 08/05/25 15:47 Pulse 85 08/05/25 15:47 Resp 20 08/05/25 15:47 BP 122/65 08/05/25 15:47 Pulse Ox 98 08/05/25 15:47 O2 Del Method Room Air 08/05/25 15:47 BMI result Body Mass Index 32.7 Objective Data Active Medications Acetaminophen (Acetaminophen 325 Mg Tablet) 975 mg PO Q8H PRN PRN Reason: Pain, Mild 1-3,fever,headache Atorvastatin Calcium (Atorvastatin Calcium 40 Mg Tablet) 40 mg PO BEDTIME [facility] Last Admin: 08/04/25 20:16 Dose: 40 mg Documented By: DANIE Calcium Carbonate (Calcium Carbonate 750 Mg Tab.Chew) 750 mg PO Q4H PRN PRN Reason: Heartburn Last Admin: 08/04/25 14:04 Dose: 750 mg Documented By: LILY Celecoxib (Celecoxib 200 Mg Capsule) 200 mg PO BID [facility] Last Admin: 08/05/25 15:06 Dose: 200 mg Documented By: SINGH Dextrose (Dextrose 50 % 25 Gm/50 Ml Syringe) 25 gm IVPUSH Q15M PRN; Protocol PRN Reason: per Hypoglycemia Standing Ord. Fluticasone Propionate (Fluticasone Propionate Nasal 16 Gm [place]) 2 spray NOSTRIL-B DAILY [facility] Last Admin: 08/05/25 07:49 Dose: 2 spray Documented By: SINGH Glucose (Glucose Gel 15 Gm Gel..Gram.) 15 gm PO Q15M PRN; Protocol PRN Reason: per Hypoglycemia Standing Ord. Cefepime HCl (Maxipime) 2 gm in 50 mls @ 100 mls/hr IV Q24H [facility] Last Infusion: 08/05/25 16:00 Dose: Infused Documented By: SINGH Sodium Chloride (Ns) 1,000 mls @ 100 mls/hr IVCONT .Q10H [facility] Last Infusion: 08/05/25 14:35 Dose: Infused Documented By: SINGH Vancomycin HCl 1,250 mg/ (Sodium Chloride) 250 mls @ 166.667 mls/hr IV Q12H [facility] Last Admin: 08/05/25 18:15 Dose: 166.67 mls/hr Documented By: SINGH Insulin Human Lispro (Insulin Lispro 100 Unit/Ml 3 Ml Vial) 0 unit SUBCUT QIDACHS [facility]; Protocol Last Admin: 08/05/25 16:28 Dose: Not Given Documented By: SINGH Non-Admin Reason: No Insulin Coverage Loratadine (Loratadine 10 Mg Tablet) 10 mg PO DAILY [facility] Last Admin: 08/05/25 07:49 Dose: 10 mg Documented By: SINGH Magnesium Hydroxide (Milk Of Magnesia 30 Ml Oral.Susp) 30 ml PO DAILY PRN PRN Reason: Constipation Melatonin (Melatonin 3 Mg Tablet) 6 mg PO BEDTIME PRN PRN Reason: Insomnia Ondansetron HCl (Ondansetron Hcl 4 Mg/2 Ml Vial) 4 mg IVPUSH Q4H PRN PRN Reason: Nausea and Vomiting Last Admin: 08/05/25 10:47 Dose: 4 mg Documented By: SINGH Pantoprazole Sodium (Pantoprazole Sodium 40 Mg/10 Ml Vial) 40 mg IVPUSH DAILY@0630 [facility] Last Admin: 08/05/25 05:09 Dose: 40 mg Documented By: ANTOIC Pharmacy Consult (Consult Rx Vancomycin Dosing) 1 each MISCELLANE DAILY PRN PRN Reason: Consult order Sodium Chloride (0.9 % Sodium Chloride Flush 3 Ml Syringe) 3 ml IVFLUSH QSHIFT [facility] Last Admin: 08/05/25 15:11 Dose: Not Given Documented By: SINGH Non-Admin Reason: IV Running Tramadol HCl (Tramadol Hcl 50 Mg Tablet) 50 mg PO Q8H PRN PRN Reason: Pain, Moderate(Pain Scale 4-6) Last Admin: 08/05/25 13:08 Dose: 50 mg Documented By: SINGH Vitamin D (Cholecalciferol (Vitamin D3) 25 Mcg Tablet) 50 mcg PO DAILY [facility] Last Admin: 08/05/25 07:49 Dose: 50 mcg Documented By: SINGH Warfarin Sodium (Warfarin Sodium 5 Mg Tablet) 5 mg PO DAILY@1800 [facility] Last Admin: 08/05/25 18:14 Dose: 5 mg Documented By: SINGH Labs 08/05/25 06:05 08/05/25 06:05 Labs: Laboratory Results - last 24 hr 08/04/25 08/05/25 08/05/25 20:45 06:05 07:42 MCV 89.9 MCH 28.9 MCHC 32.1 RDW 13.5 Plt Count 277 MPV 9.3 L Immature Gran % (Auto) 0.7 H Neut % (Auto) 80.4 H Lymph % (Auto) 10.0 L [place] % (Auto) 8.4 Eos % (Auto) 0.1 Baso % (Auto) 0.4 Lymph # (Auto) 0.8 L [place] # (Auto) 0.7 Eos # (Auto) 0.0 Baso # (Auto) 0.0 Abs Immat Gran (auto) 0.06 H Absolute Neuts (auto) 6.7 Absolute Nucleated RBC 0.000 Nucleated RBC % (auto) 0.0 PT 22.7 H INR 2.0 H Anion Gap 18 Estim Creat Clear Calc 100.8 Estimated GFR > 60 POC Glucose 126 H 147 H Random Glucose 150 H Calcium 8.4 D Magnesium 1.8 Total Bilirubin 0.3 AST 24 ALT 53 H Alkaline Phosphatase 158 H Total Protein 6.3 L Albumin 3.1 L Urine Color Urine Appearance Urine pH Ur Specific [place] Urine Protein Urine Glucose (UA) Urine Ketones Urine Blood Urine Nitrite Ur Leukocyte Esterase Urine RBC Urine WBC Ur Squamous Epith Cells Urine Bacteria Hyaline Casts Urine Yeast Random Vancomycin 08/05/25 08/05/25 08/05/25 11:27 15:46 16:23 MCV MCH MCHC RDW Plt Count MPV Immature Gran % (Auto) Neut % (Auto) Lymph % (Auto) [place] % (Auto) Eos % (Auto) Baso % (Auto) Lymph # (Auto) [place] # (Auto) Eos # (Auto) Baso # (Auto) Abs Immat Gran (auto) Absolute Neuts (auto) Absolute Nucleated RBC Nucleated RBC % (auto) PT INR Anion Gap Estim Creat Clear Calc Estimated GFR POC Glucose 135 H 148 H Random Glucose Calcium Magnesium Total Bilirubin AST ALT Alkaline Phosphatase Total Protein Albumin Urine Color Urine Appearance Urine pH Ur Specific [place] Urine Protein Urine Glucose (UA) Urine Ketones Urine Blood Urine Nitrite Ur Leukocyte Esterase Urine RBC Urine WBC Ur Squamous Epith Cells Urine Bacteria Hyaline Casts Urine Yeast Random Vancomycin 11.3 L 08/05/25 17:39 MCV MCH MCHC RDW Plt Count MPV Immature Gran % (Auto) Neut % (Auto) Lymph % (Auto) [place] % (Auto) Eos % (Auto) Baso % (Auto) Lymph # (Auto) [place] # (Auto) Eos # (Auto) Baso # (Auto) Abs Immat Gran (auto) Absolute Neuts (auto) Absolute Nucleated RBC Nucleated RBC % (auto) PT INR Anion Gap Estim Creat Clear Calc Estimated GFR POC Glucose Random Glucose Calcium Magnesium Total Bilirubin AST ALT Alkaline Phosphatase Total Protein Albumin Urine Color Yellow Urine Appearance Cloudy Urine pH 6.0 Ur Specific [place] >= 1.030 H Urine Protein 30 (1+) H Urine Glucose (UA) >=1000 H Urine Ketones >=160 Urine Blood Negative Urine Nitrite Negative Ur Leukocyte Esterase Negative Urine RBC 0-2 Urine WBC 6-10 H Ur Squamous Epith Cells 0-2 Urine Bacteria None Seen Hyaline Casts 0-2 Urine Yeast Present Random Vancomycin Microbiology Microbiology Results: Microbiology 08/03/25 15:29 Blood Culture - Preliminary Blood - Venous No growth after 48 hours. 08/03/25 15:29 Blood Culture - Preliminary Blood - Venous No growth after 24 hours. Assessment and Plan (1) Cellulitis: Status: Acute Plan 64F PMH diabetes, polycythemia with history of DVT on warfarin, hypertension, hyperlipidemia presented with right 2nd toe erythema-found to have cellulitis/sepsis in a patient who is immunocompromised, prior OM post amputation. Right 2nd toe cellulitis due to diabetes and injury in a patient with osteomyelitis post amputation (please refer to the admission picture) Continue Vancomycin, cefepime Follow up cultures, wound care Vasc surgery consulted - no amputation ID recommending likely 6 weeks of IV antibiotics, possibly vanc or daptomycin depending on cultures Chills rigors and nausea and vomiting likely in the setting of ongoing sepsis-sepsis workup has been initiated on admission we are continue to follow. We will give fluid resuscitation Stool studies, C-Diff Diabetes Insulin sliding scale History of DVT on warfarin Warfarin, monitor INR DVT prophylaxis-on Coumadin Full Code Pt is currently hospitalized due to sepsis, a severe infection linked to complications from their Type 2 Diabetes. The medical team is providing aggressive treatment with antibiotics and supportive care to manage the infection and stabilize their condition. Due to the seriousness of sepsis, they will remain in the hospital for ongoing monitoring and recovery. Quality Stroke Does the patient have a stroke diagnosis?: No VTE Prior VTE?: No VTE Risk Level:: Medical - moderate - high VTE Device Contraindication: N/A - Device Ordered VTE Drug Contraindication: N/A - Med Ordered
[2025-08-05 20:00] VITALS: BP 119/68; PULSE 86; RESP 19; TEMP 37.6; O2SAT 99
[2025-08-05 20:37] LABS: Glucose, Whole Blood 150 mg/dL (60-115)
[2025-08-06 03:38] VITALS: BP 124/58; PULSE 85; RESP 18; TEMP 37.8; O2SAT 96
[2025-08-06 06:55] LABS: MANUAL DIFF FLAG NO
[2025-08-06 07:05] LABS: INTERNATIONAL NORM RATIO 1.9 (0.9-1.1); Prothrombin Time 21.8 SEC (10.9-12.4)
[2025-08-06 07:11] LABS: Hematocrit 35.4 % (37.0-47.0); Hemoglobin 12.1 g/dl (12.0-16.0); Imm Gran Abs Auto 0.05 X10*3/uL (0.00-0.03); Imm Gran Pct Auto 0.7 % (0.0-0.4); Lymphocytes Absolute Auto 1.1 X10*3/uL (1.2-4.9); Mean Corpuscular HGB Conc 34.2 g/dl (31.0-35.0); Mean Corpuscular Hemoglobin 29.6 pg (27.0-33.0); Mean Corpuscular Volume 86.6 fL (80.0-98.0); NRBC Abs Auto 0.000 X10*3/uL (0.0-0.012); NRBC Pct Auto 0.0 /100WBC (0.0-0.2); Platelet Count 222 X10*3/uL (160-400); Red Blood Count 4.09 X10*6/uL (4.20-5.50); White Blood Count 6.8 X10*3/uL (4.8-10.8)
[2025-08-06 07:16] LABS: Alanine Aminotransferase 38 U/L (0-31); Albumin Level 2.6 g/dL (3.5-5.0); Alkaline Phosphatase 121 U/L (39-117); Anion Gap 15 (12-20); Aspartate Amino Transferase 22 U/L (5-31); Blood Urea Nitrogen 10 mg/dL (9-16); Calcium 8.0 mg/dL (8.4-10.2); Carbon Dioxide 16 mmol/L (22-29); Chloride 110 mmol/L (96-108); Creatinine Clr Calc Pharmacy 110.8; Estimated Glomerular Filt Rate > 60; Potassium 3.5 mmol/L (3.3-5.1); Sodium 137 mmol/L (135-145); Total Protein 5.3 g/dL (6.5-8.0)
[2025-08-06 07:31] LABS: Glucose, Whole Blood 140 mg/dL (60-115)
[2025-08-06 07:32] VITALS: BP 114/56; PULSE 76; RESP 17; TEMP 36.8; O2SAT 96
[2025-08-06] MEDS: Milk of Magnesia 30 ML ORAL.SUSP PO (08:05)
[2025-08-06] MEDS: cefEPime HCl/D5W 2 GM/50 ML PIGGYBACK IV ×2 (10:13→17:52)
[2025-08-06 11:27] LABS: Glucose, Whole Blood 215 mg/dL (60-115)
--- NOTE | 2025-08-06 13:21 | HO.WOUND ---
Wound Consult: deferred Wound care consulted for right foot wound/cellulitis. patient is being followed by Vascular with recommendations/orders in place for alginate (durafiber) dressings. Please re-consult wound care if further recommendations are needed.
--- NOTE | 2025-08-06 13:55 | MHC.CM.PN ---
[facility] RN to [facility]. Teach and orders complete for 6 wks IV dapto. Likely dc tomorrow. Deb updated.
--- NOTE | 2025-08-06 15:35 | HO.PICC ---
PICC Line Insertion NPICC Diagnosis: osteomyelitis Indication: jail ABT Pertinent Labs: reviewed Technique: Following informed consent including risks, benefits and alternatives and using sterile technique including cap and mask, sterile gown, glove and drape, the right arm was prepped and draped in the usual sterile fashion of full barrier technique with CHG. Following completion of [place] Protocol the skin and soft tissues were anesthetized with 1% Lidocaine plain. Using ultrasound guidance, right basilic vein access was obtained. Over an 0.018 wire through peel-away sheath, a 5fr double lumen PASV PICC line was positioned. Catheter length is 45cm internal length, 0cm external length, for a total trimmed length of 45cm. The procedure was performed in [facility]. Tip verification was performed by Isacc Roque with Sherlock 3CG. Tip located in SVC. Ultrasound was used to document vein patency and for needle entry. A formal ultrasound picture and cardiac rhythm strip was recorded. [facility]ascular Guest Experience Captain has released the line for use and it is currently dressed with a StatLock, Tegaderm, and CHG disc. Verification has been performed for blood return and line patency. Arm Circumference: 42cm Equipment: [employer] POWERDxNAC solo with sherlock 3CG tip Catheter Type: 5fr double lumen PASV Lot #: [id number]
[2025-08-06 15:51] VITALS: BP 147/66; PULSE 78; RESP 19; TEMP 36.8; O2SAT 99
[2025-08-06 16:25] LABS: Glucose, Whole Blood 184 mg/dL (60-115)
--- NOTE | 2025-08-06 16:26 | HO.VASCPN ---
Subjective Subjective Date of Service: 08/06/25 Patient reports: no new complaints and feels better Interval history: Very pleasant 64-year-old female for routine follow-up regarding toe amputation. She had undergone right 2nd toe amputation by us on 07/27/2025. Has significant erythema and pain of the leg which presented to the hospital again. Appears to be doing significantly better. Has been seen by infectious disease. Physical Exam Vital Signs: Vital Signs: Last Vital Signs Temp 98.2 F 08/06/25 15:51 Pulse 78 08/06/25 15:51 Resp 19 08/06/25 15:51 BP 147/66 H 08/06/25 15:51 Pulse Ox 99 08/06/25 15:51 O2 Del Method Room Air 08/06/25 15:51 BMI result Body Mass Index 32.7 Const: General: cooperative, healthy appearing and comfortable Orientation/consciousness: oriented to person, oriented to place and oriented to time HEENT: Head: Yes normal to inspection Neck: Neck: Yes normal visual inspection Carotids: no bruits Chest: Chest palpation & inspection: normal inspection of the chest Resp: Effort & Inspection: normal respiratory effort and able to speak in complete sentences Auscultation: clear to auscultation bilaterally, no crackles, no rales, no rhonchi and no wheezes Cardio: Rate: regular rate Rhythm: regular rhythm Heart sounds: S1 normal heart sound present and S2 normal heart sound present Bruits: no carotid bruits Peripheral pulses: Peripheral pulses 2+ throughout GI: Inspection: Yes normal to inspection Skin: Other: Right 2nd toe amp healing well surrounding erythema. Wounds: no wounds Hair: normal Neuro: General: oriented to person, oriented to place and oriented to time Cranial nerves: Yes CN's II-XII intact bilaterally and Yes Normal hearing present Cognition (Neuro): normal cognition Motor exam (neuro): 5/5 motor strength present throughout Extrem: Other: venous exam: No significant superficial varicosities or spider telangiectasias, minimal edema General: No clubbing, No cyanosis and No edema Psych: Appearance: grossly normal Mental Status: mental status grossly normal Speech and movement: Normal speech and movement present Progress Note: A&P Assessment and plan (1) PAD (peripheral artery disease): Status: Acute Assessment and Plan: In short right lower extremity appears to be doing relatively well. Agree with long-term antibiotics. Of bigger concern is risk factor modification. Her last hemoglobin A1c is 12 and she does need better diabetes control. We will continue to monitor her status with you. Thank you for allowing us to assist in her care. Time Spent With Patient Time: Total time managing care of this patient today ____ minutes. Procedures Date of Service Date of Service: 08/06/25 Quality Stroke Does the patient have a stroke diagnosis?: No VTE Prior VTE?: No VTE Risk Level:: Medical - moderate - high VTE Device Contraindication: N/A - Device Ordered VTE Drug Contraindication: N/A - Med Ordered
[2025-08-06] MEDS: 0.9 % Sodium Chloride Flush 3 ML SYRINGE IVFLUSH ×2 (16:42→23:39)
--- NOTE | 2025-08-06 16:42 | PC.NURSE ---
Education provided to patient regarding blood glucose and sliding scale for insulin aministration woth good effect. Patient verbalized understanding and was able to return demonstration by determining the amount of insulin she needed before dinner based on her blood glucose results effectively.
--- NOTE | 2025-08-06 17:15 | HO.PM.IMPN ---
Subjective Subjective Date of Service: 08/06/25 Interval History: Feeling better Low-grade fever overnight of 100.0 No nausea, vomiting, diarrhea Seen by ID who recommended 6 weeks of daptomycin; will place PICC line today No significant foot pain Review of Systems Review of Systems: Yes all other systems are reviewed and are negative Physical Exam Exam: Exam: General: AOx3, no acute distress. Resting comfortably in bed Resp: CTA bilaterally CVS: S1, S2, RRR GI: +BS, no distention, NT Skin: Warm, dry Neuro: Cranial nerves II-XII grossly intact bilaterally. Motor grossly intact bilaterally Extremities: No edema. Right foot covered in clean and dry dressing. Psych: Appropriate affect Vital Signs: Vital Signs: Last Vital Signs Temp 98.2 F 08/06/25 15:51 Pulse 78 08/06/25 15:51 Resp 19 08/06/25 15:51 BP 147/66 H 08/06/25 15:51 Pulse Ox 99 08/06/25 15:51 O2 Del Method Room Air 08/06/25 15:51 BMI result Body Mass Index 32.7 Objective Data Active Medications Acetaminophen (Acetaminophen 325 Mg Tablet) 975 mg PO Q8H PRN PRN Reason: Pain, Mild 1-3,fever,headache Last Admin: 08/06/25 16:48 Dose: 975 mg Documented By: SINGH Atorvastatin Calcium (Atorvastatin Calcium 40 Mg Tablet) 40 mg PO BEDTIME [facility] Last Admin: 08/05/25 21:11 Dose: 40 mg Documented By: DANIE Calcium Carbonate (Calcium Carbonate 750 Mg Tab.Chew) 750 mg PO Q4H PRN PRN Reason: Heartburn Last Admin: 08/04/25 14:04 Dose: 750 mg Documented By: LILY Celecoxib (Celecoxib 200 Mg Capsule) 200 mg PO BID [facility] Last Admin: 08/06/25 08:01 Dose: 200 mg Documented By: SINGH Dextrose (Dextrose 50 % 25 Gm/50 Ml Syringe) 25 gm IVPUSH Q15M PRN; Protocol PRN Reason: per Hypoglycemia Standing Ord. Fluticasone Propionate (Fluticasone Propionate Nasal 16 Gm [place]) 2 spray NOSTRIL-B DAILY [facility] Last Admin: 08/06/25 08:01 Dose: 2 spray Documented By: SINGH Glucose (Glucose Gel 15 Gm Gel..Gram.) 15 gm PO Q15M PRN; Protocol PRN Reason: per Hypoglycemia Standing Ord. Vancomycin HCl 1,250 mg/ (Sodium Chloride) 250 mls @ 166.667 mls/hr IV Q12H [facility] Last Infusion: 08/06/25 07:57 Dose: Infused Documented By: SINGH Cefepime HCl (Maxipime) 2 gm in 50 mls @ 100 mls/hr IV Q8H [facility] Last Infusion: 08/06/25 10:50 Dose: Infused Documented By: SINHG Insulin Human Lispro (Insulin Lispro 100 Unit/Ml 3 Ml Vial) 0 unit SUBCUT QIDACHS [facility]; Protocol Last Admin: 08/06/25 16:41 Dose: 2 unit Documented By: SINGH Loratadine (Loratadine 10 Mg Tablet) 10 mg PO DAILY [facility] Last Admin: 08/06/25 08:01 Dose: 10 mg Documented By: SINGH Magnesium Hydroxide (Milk Of Magnesia 30 Ml Oral.Susp) 30 ml PO DAILY PRN PRN Reason: Constipation Last Admin: 08/06/25 08:05 Dose: 30 ml Documented By: SINGH Melatonin (Melatonin 3 Mg Tablet) 6 mg PO BEDTIME PRN PRN Reason: Insomnia Ondansetron HCl (Ondansetron Hcl 4 Mg/2 Ml Vial) 4 mg IVPUSH Q4H PRN PRN Reason: Nausea and Vomiting Last Admin: 08/05/25 10:47 Dose: 4 mg Documented By: SINGH Pantoprazole Sodium (Pantoprazole Sodium 40 Mg/10 Ml Vial) 40 mg IVPUSH DAILY@0630 [facility] Last Admin: 08/06/25 05:25 Dose: 40 mg Documented By: DANIE Pharmacy Consult (Consult Rx Vancomycin Dosing) 1 each MISCELLANE DAILY PRN PRN Reason: Consult order Sodium Chloride (0.9 % Sodium Chloride Flush 3 Ml Syringe) 3 ml IVFLUSH QSHIFT [facility] Last Admin: 08/06/25 16:42 Dose: 3 ml Documented By: SINGH Tramadol HCl (Tramadol Hcl 50 Mg Tablet) 50 mg PO Q8H PRN PRN Reason: Pain, Moderate(Pain Scale 4-6) Last Admin: 08/06/25 12:26 Dose: 50 mg Documented By: SINGH Vitamin D (Cholecalciferol (Vitamin D3) 25 Mcg Tablet) 50 mcg PO DAILY [facility] Last Admin: 08/06/25 08:01 Dose: 50 mcg Documented By: SINGH Warfarin Sodium (Warfarin Sodium 7.5 Mg Tablet) 7.5 mg PO ONCE@1800 ONE Stop: 08/06/25 18:01 Warfarin Sodium (Warfarin Sodium 5 Mg Tablet) 5 mg PO MoTh@1800 [facility] Warfarin Sodium (Warfarin Sodium 7.5 Mg Tablet) 7.5 mg PO SuTuWeFrSa@1800 [facility] Labs 08/06/25 06:46 08/06/25 06:46 Labs: Laboratory Results - last 24 hr 08/05/25 08/05/25 08/06/25 17:39 20:30 06:46 MCV 86.6 MCH 29.6 MCHC 34.2 RDW 13.2 Plt Count 222 MPV 9.1 L Immature Gran % (Auto) 0.7 H Neut % (Auto) 69.5 Lymph % (Auto) 15.5 L [place] % (Auto) 13.2 H Eos % (Auto) 0.7 Baso % (Auto) 0.4 Lymph # (Auto) 1.1 L [place] # (Auto) 0.9 Eos # (Auto) 0.1 Baso # (Auto) 0.0 Abs Immat Gran (auto) 0.05 H Absolute Neuts (auto) 4.7 Absolute Nucleated RBC 0.000 Nucleated RBC % (auto) 0.0 PT 21.8 H INR 1.9 H Anion Gap 15 Estim Creat Clear Calc 110.8 Estimated GFR > 60 POC Glucose 150 H Random Glucose 143 H Calcium 8.0 L Total Bilirubin 0.3 AST 22 ALT 38 H Alkaline Phosphatase 121 H Total Protein 5.3 L Albumin 2.6 L Urine Color Yellow Urine Appearance Cloudy Urine pH 6.0 Ur Specific [place] >= 1.030 H Urine Protein 30 (1+) H Urine Glucose (UA) >=1000 H Urine Ketones >=160 Urine Blood Negative Urine Nitrite Negative Ur Leukocyte Esterase Negative Urine RBC 0-2 Urine WBC 6-10 H Ur Squamous Epith Cells 0-2 Urine Bacteria None Seen Hyaline Casts 0-2 Urine Yeast Present Random Vancomycin 08/06/25 08/06/25 08/06/25 07:26 11:23 16:21 MCV MCH MCHC RDW Plt Count MPV Immature Gran % (Auto) Neut % (Auto) Lymph % (Auto) [place] % (Auto) Eos % (Auto) Baso % (Auto) Lymph # (Auto) [place] # (Auto) Eos # (Auto) Baso # (Auto) Abs Immat Gran (auto) Absolute Neuts (auto) Absolute Nucleated RBC Nucleated RBC % (auto) PT INR Anion Gap Estim Creat Clear Calc Estimated GFR POC Glucose 140 H 215 H 184 H Random Glucose Calcium Total Bilirubin AST ALT Alkaline Phosphatase Total Protein Albumin Urine Color Urine Appearance Urine pH Ur Specific [place] Urine Protein Urine Glucose (UA) Urine Ketones Urine Blood Urine Nitrite Ur Leukocyte Esterase Urine RBC Urine WBC Ur Squamous Epith Cells Urine Bacteria Hyaline Casts Urine Yeast Random Vancomycin 08/06/25 16:26 MCV MCH MCHC RDW Plt Count MPV Immature Gran % (Auto) Neut % (Auto) Lymph % (Auto) [place] % (Auto) Eos % (Auto) Baso % (Auto) Lymph # (Auto) [place] # (Auto) Eos # (Auto) Baso # (Auto) Abs Immat Gran (auto) Absolute Neuts (auto) Absolute Nucleated RBC Nucleated RBC % (auto) PT INR Anion Gap Estim Creat Clear Calc Estimated GFR POC Glucose Random Glucose Calcium Total Bilirubin AST ALT Alkaline Phosphatase Total Protein Albumin Urine Color Urine Appearance Urine pH Ur Specific [place] Urine Protein Urine Glucose (UA) Urine Ketones Urine Blood Urine Nitrite Ur Leukocyte Esterase Urine RBC Urine WBC Ur Squamous Epith Cells Urine Bacteria Hyaline Casts Urine Yeast Random Vancomycin 13.7 L Microbiology Microbiology Results: Microbiology 08/03/25 15:29 Blood Culture - Preliminary Blood - Venous No growth after 48 hours. 08/03/25 15:29 Blood Culture - Preliminary Blood - Venous No growth after 48 hours. Assessment and Plan (1) Cellulitis: Status: Acute Plan 64F PMH diabetes, polycythemia with history of DVT on warfarin, hypertension, hyperlipidemia presented with right 2nd toe erythema-found to have cellulitis/sepsis in a patient who is immunocompromised, prior OM post amputation. Right 2nd toe cellulitis with sepsis due to diabetes and injury in a patient with osteomyelitis post amputation (please refer to the admission picture) Continue Vancomycin, cefepime for now Vasc surgery consulted - no amputation ID recommending 6 weeks of daptomycin BXc negative after 48h Will place PICC Wound care: alginate with 4 x 4 and Kerlix wrap to be changed daily [id number] type 2 diabetes, poorly controlled A1c 12.0 Insulin sliding scale, diabetic diet Will discharge home on sliding scale insulin History of DVT on warfarin Warfarin, monitor INR DVT prophylaxis-on Coumadin Full Code Pt is currently hospitalized due to sepsis, a severe infection linked to complications from their Type 2 Diabetes. The medical team is providing aggressive treatment with antibiotics and supportive care to manage the infection and stabilize their condition. Due to the seriousness of sepsis, they will remain in the hospital for ongoing monitoring and recovery. Quality Stroke Does the patient have a stroke diagnosis?: No VTE Prior VTE?: No VTE Risk Level:: Medical - moderate - high VTE Device Contraindication: N/A - Device Ordered VTE Drug Contraindication: N/A - Med Ordered
[2025-08-06 20:00] VITALS: BP 134/62; PULSE 79; RESP 19; TEMP 37.1; O2SAT 97
[2025-08-06 20:42] LABS: Glucose, Whole Blood 251 mg/dL (60-115)
[2025-08-06] MEDS: 0.9 % Sodium Chloride Flush 10 ML SYRINGE IVFLUSH (23:31)
[2025-08-07] MEDS: cefEPime HCl/D5W 2 GM/50 ML PIGGYBACK IV ×2 (02:25→10:40)
[2025-08-07 04:00] VITALS: BP 133/63; PULSE 70; RESP 18; TEMP 36.1; O2SAT 98
[2025-08-07 06:24] LABS: MANUAL DIFF FLAG NO
[2025-08-07 06:42] LABS: INTERNATIONAL NORM RATIO 1.5 (0.9-1.1); Prothrombin Time 17.0 SEC (10.9-12.4)
[2025-08-07 06:51] LABS: Alanine Aminotransferase 36 U/L (0-31); Albumin Level 2.7 g/dL (3.5-5.0); Alkaline Phosphatase 120 U/L (39-117); Anion Gap 11 (12-20); Aspartate Amino Transferase 25 U/L (5-31); Blood Urea Nitrogen 12 mg/dL (9-16); Calcium 8.3 mg/dL (8.4-10.2); Carbon Dioxide 21 mmol/L (22-29); Chloride 113 mmol/L (96-108); Creatinine Clr Calc Pharmacy 120.6; Estimated Glomerular Filt Rate > 60; Potassium 3.7 mmol/L (3.3-5.1); Sodium 141 mmol/L (135-145); Total Protein 5.5 g/dL (6.5-8.0)
[2025-08-07 06:53] LABS: Hematocrit 36.3 % (37.0-47.0); Hemoglobin 12.2 g/dl (12.0-16.0); Imm Gran Abs Auto 0.03 X10*3/uL (0.00-0.03); Imm Gran Pct Auto 0.6 % (0.0-0.4); Lymphocytes Absolute Auto 1.2 X10*3/uL (1.2-4.9); Mean Corpuscular HGB Conc 33.6 g/dl (31.0-35.0); Mean Corpuscular Hemoglobin 29.4 pg (27.0-33.0); Mean Corpuscular Volume 87.5 fL (80.0-98.0); NRBC Abs Auto 0.000 X10*3/uL (0.0-0.012); NRBC Pct Auto 0.0 /100WBC (0.0-0.2); Platelet Count 216 X10*3/uL (160-400); Red Blood Count 4.15 X10*6/uL (4.20-5.50); White Blood Count 5.3 X10*3/uL (4.8-10.8)
[2025-08-07 07:41] VITALS: BP 120/60; PULSE 78; RESP 16; TEMP 36.6; O2SAT 99
[2025-08-07 07:48] LABS: Glucose, Whole Blood 166 mg/dL (60-115)
[2025-08-07] MEDS: 0.9 % Sodium Chloride Flush 3 ML SYRINGE IVFLUSH (08:26)
[2025-08-07] MEDS: 0.9 % Sodium Chloride Flush 10 ML SYRINGE IVFLUSH (08:26)
[2025-08-07 11:19] LABS: Glucose, Whole Blood 213 mg/dL (60-115)
--- NOTE | 2025-08-07 11:41 | PM.DS ---
DS: Providers Provider Date of Service: 08/07/25 Date of admission: 08/03/25 16:13 Date of discharge: 08/07/25 Primary care physician: Jewel Nuñez MD Consults: 08/03/25 16:29 Consult to Vascular Surgery Routine Consulting Provider: [facility] [place] Reason for consultation: right foot infection Has provider been notified: No 08/05/25 14:14 Consult to Infectious Diseases Routine Consulting Provider: [facility] [place] [facility] Reason for consultation: ?Source of infection; vascular does not think it is from cellulitis of foot 08/05/25 18:58 Consult to Wound Care Routine Reason for consultation: Right foot cellulitis s/p 2nd toe amp DS: Diagnosis Discharge Diagnosis (1) Cellulitis: Status: Acute DS: Summary Hospital Course Hospital Course: From admission HPI: Date of Service: 08/03/25 Attending physician on admission: Bryon Luna Chief Complaint: foot infection This is a 64 year old female with history of diabetes who underwent right 2nd toe foot amputation secondary to osteomyelitis on July 27 who returns with concern over foot infection. Patient says that the visiting nurses have been monitoring her foot due to concern for increasing redness. Today they noted foul smelling odor with redness extending to her 1st and 3rd toes and recommended she come to the hospital for further evaluation. She reports having chills and vomiting overnight. Today in the emergency department workup was significant for leukocytosis of 13.9. She received a dose of cefepime in the decision was made to admit her to the hospital for further management of wound infection. Hospital course: Pt was admitted to the hospital for right foot cellulitis with concerns for osteomyelitis at site of recent 2nd toe amputation. Pt was treated with IV vancomycin and cefepime to good effect and resolution of fevers. Was seen by both vascular surgery who suggested no need for further amputation and by Infectious Disease who suggested treating for presumed recurrent osteomyelitis with daptomycin 750 mg IV x6 weeks, to end on 09/14. Pt had PICC line placed by IR and will be discharged home with services. Pt showed hold statin while on daptomycin. Pt's diabetes noted to be poorly controlled with A1c 12.0 despite multiple oral diabetic agents as well as being on Mounjaro. Pt was educated on the importance of managing her diabetes in order to aid in the healing of her foot and will be discharged home on sliding scale insulin. For wound care, area of right foot should have alginate with 4 x 4 and Kerlix wrap to be changed every other day. Pt should continue all of her other home medications, including Coumadin. Pt will need to follow up with Dr. Adams in vascular surgery at previously scheduled appointment on Sunday, as well as we talked to [place] and Infectious Disease. Pt should follow up with PCP in 1 week for routine post hospitalization visit and monitoring of diabetes management. Time Attestation Discharge Coordination Time (in mins): 36 Quality: Safe Use of Opioids Does Pt have an Active Cancer Diagnosis on the Problem List?: No Quality: Stroke Does the patient have a stroke diagnosis?: No Physical Exam Exam: Exam: General: AOx3, no acute distress. Resting comfortably in bed Resp: CTA bilaterally CVS: S1, S2, RRR GI: +BS, no distention, NT Skin: Warm, dry Neuro: Cranial nerves II-XII grossly intact bilaterally. Motor grossly intact bilaterally Extremities: No edema. Right foot covered in clean and dry dressing. Psych: Appropriate affect Vital Signs: Vital Signs: Last Vital Signs Temp 97.8 F 08/07/25 07:41 Pulse 78 08/07/25 07:41 Resp 16 08/07/25 07:41 BP 120/60 08/07/25 07:41 Pulse Ox 99 08/07/25 07:41 O2 Del Method Room Air 08/07/25 07:41 BMI result Body Mass Index 32.7 DS: Data Data Completed and Pending Labs on day of discharge: Laboratory Results - last 24 hr 08/06/25 08/06/25 08/06/25 16:21 16:26 20:38 WBC RBC Hgb Hct MCV MCH MCHC RDW Plt Count MPV Immature Gran % (Auto) Neut % (Auto) Lymph % (Auto) Deuel % (Auto) Eos % (Auto) Baso % (Auto) Lymph # (Auto) Deuel # (Auto) Eos # (Auto) Baso # (Auto) Abs Immat Gran (auto) Absolute Neuts (auto) Absolute Nucleated RBC Nucleated RBC % (auto) PT INR Sodium Potassium Chloride Carbon Dioxide Anion Gap BUN Creatinine Estim Creat Clear Calc Estimated GFR POC Glucose 184 H 251 H Random Glucose Calcium Total Bilirubin AST ALT Alkaline Phosphatase Total Protein Albumin Random Vancomycin 13.7 L 08/07/25 08/07/25 08/07/25 06:09 06:18 07:43 WBC 5.3 RBC 4.15 L Hgb 12.2 Hct 36.3 L MCV 87.5 MCH 29.4 MCHC 33.6 RDW 13.3 Plt Count 216 MPV 9.4 Immature Gran % (Auto) 0.6 H Neut % (Auto) 57.4 Lymph % (Auto) 21.8 Deuel % (Auto) 16.9 H Eos % (Auto) 2.5 Baso % (Auto) 0.8 Lymph # (Auto) 1.2 Deuel # (Auto) 0.9 Eos # (Auto) 0.1 Baso # (Auto) 0.0 Abs Immat Gran (auto) 0.03 Absolute Neuts (auto) 3.0 Absolute Nucleated RBC 0.000 Nucleated RBC % (auto) 0.0 PT 17.0 H D INR 1.5 H Sodium 141 Potassium 3.7 Chloride 113 H Carbon Dioxide 21 L Anion Gap 11 L BUN 12 Creatinine 0.56 Estim Creat Clear Calc 120.6 Estimated GFR > 60 POC Glucose 166 H Random Glucose 159 H Calcium 8.3 L Total Bilirubin 0.3 AST 25 ALT 36 H Alkaline Phosphatase 120 H Total Protein 5.5 L Albumin 2.7 L Random Vancomycin 08/07/25 11:16 WBC RBC Hgb Hct MCV MCH MCHC RDW Plt Count MPV Immature Gran % (Auto) Neut % (Auto) Lymph % (Auto) Deuel % (Auto) Eos % (Auto) Baso % (Auto) Lymph # (Auto) Deuel # (Auto) Eos # (Auto) Baso # (Auto) Abs Immat Gran (auto) Absolute Neuts (auto) Absolute Nucleated RBC Nucleated RBC % (auto) PT INR Sodium Potassium Chloride Carbon Dioxide Anion Gap BUN Creatinine Estim Creat Clear Calc Estimated GFR POC Glucose 213 H Random Glucose Calcium Total Bilirubin AST ALT Alkaline Phosphatase Total Protein Albumin Random Vancomycin Preliminary micro results at discharge 08/03/25 15:29 Blood Culture - Preliminary Blood - Venous No growth after 48 hours. 08/03/25 15:29 Blood Culture - Preliminary Blood - Venous No growth after 48 hours. Discharge Plan Discharge Anticipated Discharge Date/Time: 08/04/25 13:56 Patient Disposition: Home Health Service Discharge Diagnosis: Right 2nd toe cellulitis concerning for osteomyelitis Referrals: [facility] [Other] - 1 Week Referral Note: [facility] will deliver your IV antibiotic [facility] [Outside] - 3-5 Days Referral Note: resume services Jewel Nuñez MD [Primary Care Provider, Internal Medicine] - 1 Week Kylah Rosa MD [Physician, Infectious Disease] - 1 Week Referral Note: s/p left 2nd toe amp complicated by infection; being treated for osteo with dapto x6 weeks. Hermann Adams MD [Physician, Vascular Surgery] - 1 Week Referral Note: s/p left 2nd toe amp complicated by infection, on dapto x6 weeks. Discharge Medications: New oxycodone-acetaminophen [Percocet] 5-325 mg tablet 1 tab PO Q8H PRN (Reason: pain) Qty: 10 0RF Rx Instructions: Partial Fill upon patient request. insulin lispro [Humalog KwikPen Insulin] 100 unit/mL insulin pen 0 sliding scale dose SUBCUT QIDACHS Qty: 15 0RF Rx Instructions: Blood Sugar: <150 - 0 units 151-200 - 2 units 201-250 - 4 units 251-300 - 6 units 301-350 - 8 units >350 - 10 units Continued celecoxib 200 mg capsule 200 mg PO BID omeprazole 20 mg capsule,delayed release(DR/EC) 20 mg PO DAILY@0630 cholecalciferol (vitamin D3) [Vitamin D3] 50 mcg (2,000 unit) Capsule 50 mcg PO DAILY warfarin 5 mg Tablet 7.5 mg PO SUTUWEFRSA@1800 Protocol: Dose Management Condition: Sunday (Week One) Dose/Route: 0 mg Instruction: 0 tablets Condition: Sunday Dose/Route: 0 mg Instruction: 0 tablets Condition: Sunday Dose/Route: 0 mg Instruction: 0 tablets Condition: Sunday Dose/Route: 7.5 mg Instruction: 1.5 x 5 mg tablets Condition: Dose/Route: 10 mg Instruction: 2 x 5 mg tablets Condition: Sunday Dose/Route: 7.5 mg Instruction: 1.5 x 5 mg tablets Condition: Sunday Dose/Route: 7.5 mg Instruction: 1.5 x 5 mg tablets Condition: Sunday (Week Two) Dose/Route: 7.5 mg Instruction: 1.5 x 5 mg tablets Condition: Sunday Dose/Route: 5 mg Instruction: 1 x 5 mg tablet Condition: Sunday Dose/Route: 7.5 mg Instruction: 1.5 x 5 mg tablets Condition: Sunday Dose/Route: 7.5 mg Instruction: 1.5 x 5 mg tablets Condition: Dose/Route: 5 mg Instruction: 1 x 5 mg tablet Condition: Sunday Dose/Route: 7.5 mg Instruction: 1.5 x 5 mg tablets Condition: Sunday Dose/Route: 7.5 mg Instruction: 1.5 x 5 mg tablets Protocol Text: Adjustment Start Date: 07/30/25 INR Value: 1.1 INR Date: 07/27/25 Recheck Date: 08/03/25 warfarin 5 mg tablet 5 mg PO MOTH@1800 Protocol: Dose Management Condition: Sunday (Week One) Dose/Route: 0 mg Instruction: 0 tablets Condition: Sunday Dose/Route: 0 mg Instruction: 0 tablets Condition: Sunday Dose/Route: 0 mg Instruction: 0 tablets Condition: Sunday Dose/Route: 7.5 mg Instruction: 1.5 x 5 mg tablets Condition: Dose/Route: 10 mg Instruction: 2 x 5 mg tablets Condition: Sunday Dose/Route: 7.5 mg Instruction: 1.5 x 5 mg tablets Condition: Sunday Dose/Route: 7.5 mg Instruction: 1.5 x 5 mg tablets Condition: Sunday (Week Two) Dose/Route: 7.5 mg Instruction: 1.5 x 5 mg tablets Condition: Sunday Dose/Route: 5 mg Instruction: 1 x 5 mg tablet Condition: Sunday Dose/Route: 7.5 mg Instruction: 1.5 x 5 mg tablets Condition: Sunday Dose/Route: 7.5 mg Instruction: 1.5 x 5 mg tablets Condition: Dose/Route: 5 mg Instruction: 1 x 5 mg tablet Condition: Sunday Dose/Route: 7.5 mg Instruction: 1.5 x 5 mg tablets Condition: Sunday Dose/Route: 7.5 mg Instruction: 1.5 x 5 mg tablets Protocol Text: Adjustment Start Date: 07/30/25 INR Value: 1.1 INR Date: 07/27/25 Recheck Date: 08/03/25 (DME) Durafiber Dressing 2 X 2 bandage See Rx Instructions .Route Qty: 200 0RF Rx Instructions: As directed (DME) gauze bandage 1 X 5 -yard bandage See Rx Instructions .Route Qty: 12 0RF Rx Instructions: As directed tramadol 50 mg tablet 50 mg PO Q8H PRN (Reason: pain) Qty: 14 0RF (DME) blood sugar diagnostic Strip See Rx Instructions Not Applicable BID Qty: 10 Rx Instructions: As directed empagliflozin 25 mg tablet 25 mg PO DAILY lisinopril 5 mg tablet 5 mg PO BEDTIME Mounjaro 7.5 mg/0.5 mL pen injector 7.5 mg subcut SA Rx Instructions: takes on Saturdays loratadine [Claritin] 10 mg tablet 10 mg PO DAILY fluticasone propionate 50 mcg/actuation spray,suspension 2 spray intranasal DAILY Held atorvastatin 40 mg tablet 40 mg PO BEDTIME Hold Instructions: Resume on 09/15/25. Hold statin while on daptomycin. Resume once you have completed full course of antibiotics. Discharge Orders: Discharge Order (Routine); Ordered 08/07/25 Ordered By: Ruthann Calzada Diet: Advance to usual diet Activity on Discharge: As tolerated Stand Alone Forms: Patient Portal Discharge page Print Language: Thai Care Plan Goals: See below Health Concerns: Osteomyelitis Left foot cellulitis Sepsis Poorly controlled diabetes Plan of Treatment: You were admitted to the hospital for cellulitis with concern for osteomyelitis with sepsis at site of right 2nd toe amputation. They were treated with IV antibiotics to good effect with resolution of fever. You were seen and evaluated by both vascular surgery and Infectious Disease who recommended treating with daptomycin 750 mg daily for 6 weeks. You had PICC line placed by Interventional Radiology and will be discharged with services to help with home infusions. You were also noted to have poorly controlled diabetes and will be discharged on sliding scale insulin to help control your blood sugars. Continue all of your other home diabetic medications and adhere to a diabetic diet and diabetic snacking. -- take daptomycin 750 mg IV daily for a total of 6 weeks of IV antibiotics, ending on 09/14 -- hold atorvastatin while on daptomycin; resume on 09/15 after completing full course of antibiotics -- for wound care, area of right foot should have alginate with 4 x 4 and Kerlix wrap to be changed every other day -- follow up with Dr. Adams in vascular surgery; you have a previously arranged appointment on Saturday 08/11 -- follow up with Dr. Rosa in Infectious Disease -- follow up with your PCP in 1 week for routine post-hospitalization visit and monitoring of your diabetes Assessment: See discharge summary
--- NOTE | 2025-08-07 12:07 | MHC.CM.PN ---
Patient medically cleared for dc home w/ services: [facility] to deliver abx and [facility] for [facility] (med teaching and wound care). She reports she feels comfortable managing IV abx at home. will transport home at 4pm. RN and PA aware. IMM delivered.
--- NOTE | 2025-08-07 13:14 | HO.VASCPN ---
Subjective Subjective Date of Service: 08/07/25 Patient reports: no new complaints and feels better Interval history: Pleasant 64-year-old female status post right 2nd toe amputation. She appears to be doing better. Denies any fevers or chills which he was experiencing on admission. In addition she has received a PICC line in his now lined up for IV antibiotic therapy. Due to the underlying osteomyelitis she will require 6 weeks of IV antibiotics. Physical Exam Vital Signs: Vital Signs: Last Vital Signs Temp 97.8 F 08/07/25 07:41 Pulse 78 08/07/25 07:41 Resp 16 08/07/25 07:41 BP 120/60 08/07/25 07:41 Pulse Ox 99 08/07/25 07:41 O2 Del Method Room Air 08/07/25 07:41 BMI result Body Mass Index 32.7 Const: General: cooperative, healthy appearing and comfortable Orientation/consciousness: oriented to person, oriented to place and oriented to time HEENT: Head: Yes normal to inspection Neck: Neck: Yes normal visual inspection Carotids: no bruits Chest: Chest palpation & inspection: normal inspection of the chest Resp: Effort & Inspection: normal respiratory effort and able to speak in complete sentences Auscultation: clear to auscultation bilaterally, no crackles, no rales, no rhonchi and no wheezes Cardio: Rate: regular rate Rhythm: regular rhythm Heart sounds: S1 normal heart sound present and S2 normal heart sound present Bruits: no carotid bruits Peripheral pulses: Peripheral pulses 2+ throughout GI: Inspection: Yes normal to inspection Skin: Other: Right 2nd toe amputation site appears to be doing better. Cellulitis decreased. Wounds: no wounds Hair: normal Neuro: General: oriented to person, oriented to place and oriented to time Cranial nerves: Yes CN's II-XII intact bilaterally and Yes Normal hearing present Cognition (Neuro): normal cognition Motor exam (neuro): 5/5 motor strength present throughout Extrem: Other: venous exam: No significant superficial varicosities or spider telangiectasias, minimal edema General: No clubbing, No cyanosis and No edema Psych: Appearance: grossly normal Mental Status: mental status grossly normal Speech and movement: Normal speech and movement present Progress Note: A&P Assessment and plan (1) PAD (peripheral artery disease): Status: Acute Assessment and Plan: In short appears to be doing better with IV antibiotic therapy. She will require 6 weeks of IV antibiotic therapy possibly vancomycin. Continue with local wound care. She is actually set up for follow-up with us as an outpatient next Sunday at 13:00. She will follow up with us at that time for suture and staple removal. Thank you for allowing us to assist in her care. If there are any questions or concerns please do not hesitate to contact us. Time Spent With Patient Time: Total time managing care of this patient today ____ minutes. Procedures Date of Service Date of Service: 08/07/25 Quality Stroke Does the patient have a stroke diagnosis?: No VTE Prior VTE?: No VTE Risk Level:: Medical - moderate - high VTE Device Contraindication: N/A - Device Ordered VTE Drug Contraindication: N/A - Med Ordered
--- NOTE | 2025-08-07 14:21 | W.MHC.F2F ---
Service Date Service Date: 08/07/25 Encounter Date of encounter: 08/07/25 Reasons for Services Signs and symptoms assessed: Pt with right foot osteomyelitis and PICC line in place. Pt also has poorly controlled diabetes in his being sent home on IV antibiotics and new sliding-scale insulin. Pt will also need help with dressing changes. Reason for long term: wound care, central line care, diabetic teaching and medication management Reason for physical therapy: home safety and mobility and ADL training Homebound: Leaving the home is medically contraindicated at this time without the asist of a device and/or another person due th the listed conditions above and below. Reason homebound: unsteady gait / fall risk and poor balance / fall risk Certification: Based on the above findings, I certify that this patient is confined to the home and needs intermittent long term care, physical therapy and/or speech therapy, or continues to need occupational therapy. The patient is under my care, and I have initiated the establishment of the plan of care. The patient will be followed by a physician who will periodically review the plan of care. Time Spent With Patient Time: Total time managing care of this patient today ____ minutes.
[2025-08-07 14:56] VITALS: BP 143/79; PULSE 86; RESP 18; TEMP 36.3; O2SAT 98
== END 2025-08-07 15:23 | disposition home health service (06) | DRG 564 ==
LOC: HO.ED 14:47 → HO.EDOVER 16:22 → HO.S3 16:46
PROVIDERS: Student in an Organized Health Care Education/Training Program; Admitting Provider Physician Assistant Medical; Emergency Provider Emergency Medicine; PCP Internal Medicine; Visit Provider Student in an Organized Health Care Education/Training Program
DX: T87.43 Infection of amputation stump, right lower extremity (principal); A41.9 Sepsis, unspecified organism; L03.115 Cellulitis of right lower limb; D84.9 Immunodeficiency, unspecified; E11.52 Type 2 diabetes mellitus with diabetic peripheral angiopathy with gangrene; E11.65 Type 2 diabetes mellitus with hyperglycemia; D45 Polycythemia vera; K21.9 Gastro-esophageal reflux disease without esophagitis; E66.811 Obesity, class 1; Z71.3 Dietary counseling and surveillance; R79.1 Abnormal coagulation profile; Z68.32 Body mass index [BMI] 32.0-32.9, adult; Z87.891 Personal history of nicotine dependence; Z86.718 Personal history of other venous thrombosis and embolism; Z79.4 Long term (current) use of insulin; Z79.01 Long term (current) use of anticoagulants; Z79.51 Long term (current) use of inhaled steroids; Z79.899 Other long term (current) drug therapy
CPT/HCPCS: 36415; 36573; 73630; 74177; 80048; 80053; 80202; 81001; 82947; 83036; 83605; 83735; 85025; 85610; 87040; 99285; C1751; J0692; J0878; J2405; J2470; J3373; J3374; Q9967

== ENCOUNTER → 2025-08-03 15:30 | Outpatient (BNV) | payer MEDICARE, OTHER, SELFPAY | PROVIDERS: Emergency Provider Emergency Medicine; PCP Internal Medicine; Visit Provider Radiology Diagnostic Radiology | DX: M19.071 Primary osteoarthritis, right ankle and foot (principal); Z89.421 Acquired absence of other right toe(s) | CPT/HCPCS: 73630 ==

== ENCOUNTER 2025-08-03 16:13 | Outpatient (BNV) | payer MEDICARE, OTHER, SELFPAY | END 2025-08-04 19:22 | PROVIDERS: Admitting Provider Physician Assistant Medical; Emergency Provider Emergency Medicine; PCP Internal Medicine; Visit Provider Student in an Organized Health Care Education/Training Program | DX: K57.30 Diverticulosis of large intestine without perforation or abscess without bleeding (principal); K63.89 Other specified diseases of intestine | CPT/HCPCS: 74177 ==

== ENCOUNTER → 2025-08-03 16:13 | Outpatient (BNV) | payer MEDICARE, OTHER, SELFPAY | PROVIDERS: Admitting Provider Physician Assistant Medical; Emergency Provider Emergency Medicine; PCP Internal Medicine; Visit Provider Surgery Vascular Surgery | DX: I73.9 Peripheral vascular disease, unspecified (principal) | CPT/HCPCS: 99024 ==

== ENCOUNTER → 2025-08-03 16:13 | Outpatient (BNV) | payer MEDICARE, OTHER, SELFPAY | PROVIDERS: Admitting Provider Physician Assistant Medical; Emergency Provider Emergency Medicine; PCP Internal Medicine; Visit Provider Student in an Organized Health Care Education/Training Program | DX: L03.90 Cellulitis, unspecified (principal); I73.9 Peripheral vascular disease, unspecified | CPT/HCPCS: 99223; 99232; 99233; 99499 ==

== ENCOUNTER → 2025-08-03 16:13 | Outpatient (BNV) | payer MEDICARE, OTHER, SELFPAY | PROVIDERS: Admitting Provider Physician Assistant Medical; Emergency Provider Emergency Medicine; PCP Internal Medicine; Visit Provider Internal Medicine | DX: I73.9 Peripheral vascular disease, unspecified (principal); L03.90 Cellulitis, unspecified | CPT/HCPCS: 99222 ==

== ENCOUNTER 2025-08-11 12:42 | Outpatient (AMB) | payer MEDICARE, OTHER, SELFPAY ==
--- NOTE | 2025-08-11 12:55 | MHC.OFFVIS ---
Vital Signs 08/11/25 12:59 Height 5 ft 8 in Intake Visit Reasons: 2 week follow up R 2nd toe amp 07/27/25 Intake Note: Right 2nd toe amp 07/27/25, was then hospitalized for infection, has PICC line and IV Abx. VNA 3x per week [employer] Required: No Accompanied by: Daughter Allergies droperidol (From INAPSINE) Allergy (Severe, Verified 08/13/25 08:39) Anaphylaxis egg (EGG) Allergy (Severe, Verified 08/13/25 08:39) Nausea and Vomiting latex (LATEX) Allergy (Severe, Verified 08/13/25 08:39) HIVES metformin (METFORMIN) Allergy (Severe, Verified 08/13/25 08:39) DIZZINESS AND NAUSEA penicillin V Allergy (Severe, Verified 08/13/25 08:39) RASH codeine (CODEINE) Allergy (Intermediate, Verified 08/13/25 08:39) Rash Hydrocodone Bitartrate Allergy (Intermediate, Uncoded 08/11/25 13:10) Rash HPI HPI 2 week follow up R 2nd toe amp 07/27/25: Details: The patient is a 64-year-old female presenting for follow-up regarding a second toe amputation and subsequent infection management. The patient underwent a second toe amputation and was later admitted for an infection requiring intravenous antibiotic therapy. She currently has a peripherally inserted central catheter (PICC) line and is on a six-week course of intravenous antibiotics. The patient reports improvement in redness at the surgical site, although there is still some discharge present. Additionally, a pressure ulcer has developed on her heel, attributed to pressure while sleeping. The patient is advised to elevate her foot to prevent further pressure ulcers, although she reports difficulty sleeping in this position. She is currently in the first week of her antibiotic regimen, having started treatment on a Sunday before discharge from the hospital. Of note her diabetes is poorly controlled and last hemoglobin A1c was 12 PFSH Medical History Cellulitis LBBB (left bundle branch block) Hx of drainage of abscess DVT (deep venous thrombosis) Arthritis Low back pain Diabetes Elevated cholesterol Colon polyps Mccormack esophagus Bronchial asthma HTN (hypertension) Polycythemia Current use of anticoagulant therapy Surgical History S/P aortogram History of esophagogastroduodenoscopy (EGD) Previous back surgery Hx of colonoscopy History of hysterectomy History of delivery History of appendectomy History of cholecystectomy Family History Father Heart disease Afib Heart attack Maternal Grandmother Lung cancer Maternal Grandfather Prostate CA Paternal Grandmother Heart attack Paternal Grandfather Heart attack Social History Household Members: Spouse Housing: Apartment Are you a primary career development coordinator/teacher to a significant other at home: No Do you presently have visiting nurse or other home services: Yes (vna) Alcohol intake: former Comment: pt rings appropriately for assistance to bathroom Patient Tobacco Use Status: Former Tobacco user Tobacco use type: Cigarette Cigarette Packs Per Day: 1 Years Smoked: 25 Substance Use Type: Marijuana Advance Directives Date on File: 07/27/25 service: No Current occupational status: retired Review of Systems Const All systems reviewed & are unremarkable except as noted in HPI and below Reports no additional complaints ENT Reports Normal hearing present Card Denies chest pain, Denies chest pain at rest, Denies chest pain with activity and Denies pedal edema Resp Denies cough GI Denies abdominal pain Musc Denies abnormal gait, Denies muscle cramps and Denies radiating pain into limb Skin/Breast Denies skin ulcer and Denies wounds Neuro Reports Normal hearing present and Denies abnormal gait Psych Reports no additional complaints Physical Exam Const General: cooperative, healthy appearing and comfortable Orientation/consciousness: oriented to person, oriented to place and oriented to time HEENT Head: Yes normal to inspection Neck Neck: Yes normal visual inspection Carotids: no bruits Chest Chest palpation & inspection: normal inspection of the chest Resp Effort & Inspection: normal respiratory effort and able to speak in complete sentences Auscultation: clear to auscultation bilaterally, no crackles, no rales, no rhonchi and no wheezes Cardio Rate: regular rate Rhythm: regular rhythm Heart sounds: S1 normal heart sound present and S2 normal heart sound present Bruits: no carotid bruits Peripheral pulses: Peripheral pulses 2+ throughout GI Inspection: Yes normal to inspection Skin Other: Amp site relatively clean Wounds: no wounds Hair: normal Neuro General: oriented to person, oriented to place and oriented to time Cranial nerves: Yes CN's II-XII intact bilaterally and Yes Normal hearing present Cognition (Neuro): normal cognition Motor exam (neuro): 5/5 motor strength present throughout Extrem Other: venous exam: No significant superficial varicosities or spider telangiectasias, minimal edema General: No clubbing, No cyanosis and No edema Psych Appearance: grossly normal Mental Status: mental status grossly normal Speech and movement: Normal speech and movement present Assessment & Plan Assessment & Plan (1) PAD (peripheral artery disease): Comment: 04/29/2025 diagnostic angiogram Code(s): I73.9 - Peripheral vascular disease, unspecified Category: Medical Plan: During the visit, we discussed the ongoing management of the infection following the second toe amputation, including the continuation of intravenous antibiotics via the PICC line. We also addressed the development of a pressure ulcer on the heel, emphasizing the importance of foot elevation to prevent further complications. Follow-up was arranged for two weeks to assess the healing process and adjust treatment as necessary. Coding Level of Care Code Est Pt Level 3 (73264) Diagnoses PAD (peripheral artery disease) I73.9
--- OUTSIDE RECORDS SUMMARY | 2025-08-11 13:49 | XMS_ITS | Encounter Summary ---
Author Organization [facility] Address [address] [facility] [address] [place] [address] Phone Care Team Providers Care Electrician Apprentice Name Role Phone Jewel Nuñez MD Primary Care Provider [phone] Edgard Hallman MD Unavailable Mike Fontenot MD Unavailable [phone] Nahomy Hurst MD Unavailable [phone] Jean Cralos Martínez MD Unavailable Reason for Visit * Reason Onset Date Comments No Show 05/13/2025 4:30 appt Encounter Details Date Type Department Care Team (Late st Contact Info) Description 05/13/2025 Telephone [employer] [facility] Internal Medicine 40 [place], [place] [phone] Jewel Nuñez MD 40 [place], [place] [phone] [email or web address] No Show (4:30 appt) Social History Tobacco [...] can cancel appointments anytime through your Patient [place]. We appreciate your understanding. Required Scripting for [...] can cancel appointments anytime through your Patient [place]. documented in this encounter Plan of Treatment Upcoming Encounters Date Type Department Care Team (Late st Contact Info) Description 09/23/2025 2:00 PM EST Office Visit Erna Parsons [facility] Internal Medicine 40 [facility] [place] [address] Jewel Nuñez MD 40 [place], [place] 1957407 2025 2:00 PM EST Office Visit [facility] Center 22 [place] [address] Viki Thompson MD 22 [facility], 1st [place] [address] [email or web address] documented as of this encounter Visit Diagnoses Not on filedocumented in this encounter Additional Health Concerns Assessment Noted Time PHQ-2 Depression Total Score: 0 12/16/19 25 1:14 PM EST documented as of this encounter Care Teams Electrician Apprentice Relationship Specialty Start Date End Date Jewel Nuñez MD 40 [place] [address] [email or web address] PCP - General 08/30/17 Edgard Hallman MD [address] [place] [address] Dr RICARDO [address] [place] [address] Ophthalmology 06/22/20 Mike Fontenot MD [address] [place] [address] Dr [address] [place] [address] Cardiology 06/22/20 Nahomy Hurst MD [address] [place] [address] [email or web address] 06/24/20 Jean Carlos Martínez MD [address] [place] [address] Drive [address] [place] [address] Gastroenterology 12/23/20 documented as of this encounter Additional Source Comments The information contained in this document represents components of the legal health record. It is not the complete legal health record.[facility]
--- OUTSIDE RECORDS SUMMARY | 2025-08-11 13:49 | XMS_ITS | Patient Health Record ---
Author Organization [facility] Address [address] [place] [address] Care Team Providers Care Wire Threader Name Role Phone Jewel Nuñez MD Primary Care Provider Jean Carlos Meadows Unavailable [phone] Freda Patel Unavailable Unavailable Allergies Allergen (clinical [...] Problem Status W/U Status Risk Notes Problem 324251256 Encounter for screening for malignant neoplasm of colon (Z12.11) Active confirmed Problem 923239379 History of adenomatous polyp of colon (Z86.010) Active confirmed Problem 369869718 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) Active confirmed Problem Diverticular disease of colon (509794363) Diverticulosis of large intestine without perforation or abscess without bleeding (K57.30) Active confirmed Problem Gastroesophageal reflux disease (427032069) Gastroesophageal reflux disease (K21.9) Active confirmed Problem 272858535 Gastroesophageal reflux disease without esophagitis (K21.9) Active confirmed Problem 454608282 Tubular adenoma of colon (D12.6) Active confirmed Problem 141070229 Gastroesophageal reflux disease, esophagitis presence not specified (K21.9) Active confirmed Problem Gastritis (7448824) Gastritis (K29.70) Active c onfirmed Problem Mccormack esophagus (571654372) 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 Plan Of Treatment Future Test Test Name Order Date COLONOSCOPY 11/27/2012 UPPER GI ENDOSCOPY 09/02/2019 COLONOSCOPY 09/02/2019 COLONOSCOPY 03/30/2020 UPPER GI ENDOSCOPY 07/19/2023 COLONOSCOPY 07/19/2023 Insurance Providers Payer Name Payer Address Payer Phone Subscriber Number Group Number Insured Name Patient Relationship to Insured Coverage Start Date Coverage End Date [facility] [address] [place] [address] [id number] TIBURCIO MARCANO Self - patient is the [...]
--- OUTSIDE RECORDS SUMMARY | 2025-08-11 13:49 | XMS_ITS | Encounter Summary ---
Author Organization [facility] Address [address] [employer] [facility] [address] [place] [address] Phone Care Team Providers Care Garbage Collector Driver Name Role Phone Jewel Nuñez MD Primary Care Provider Edgard Hallman MD Unavailable Mike Fontenot MD Unavailable [phone] Nahomy Hurst MD Unavailable [phone] Jean Carlos Martínez MD Unavailable [phone] Reason for Visit * Reason Onset Date Comments FYI 08/04/2025 Encounter Details Date Type Department Care Team (Late st Contact Info) Description 08/04/2025 Telephone [employer] [facility] Internal Medicine 40 [place], [place] [phone] Jewel Nuñez MD 40 [place], [place] [phone] [email or web address] FY Social History Tobacco Use Types Packs/Day Years [...] encounter Progress Notes * Bony Leiva - 08/06/2025 10:54 AM EDT Spoke to Victorina she states the patient was discharged but then readmitted and is currently still in the hospital. Faxed for most recent admission note. * Jewel Nuñez MD - 08/05/2025 6:13 PM EDT Please confirm the dates with [facility] * Carmen Orellana RN - 08/04/2025 5:[address] Nuñez * Debra Harmon - 08/04/2025 4:57 PM EDT Victorina from [facility] called. She states she sent the patient to [facility] yesterday as her surgical incision on her left second toe was infected. FYI for PCP documented in this encounter Plan of Treatment Upcoming Encounters Date Type Department Care Team (Late st Contact Info) Description 09/23/2025 2:00 PM EST Office Visit [facility] Internal Medicine [address] [place] [address] Jewel Nuñez MD 40 [place] [address] 2025 2:00 PM EST Office Visit [facility] 22 [place] [address] Viki Thompson MD 22 [facility], 1st [place] [address] documented as of this encounter Visit Diagnoses Not on filedocumented in this encounter Additional Health Concerns Assessment Noted Time PHQ-2 Depression Total Score: 0 12/16/19 25 1:14 PM EST documented as of this encounter Care Teams Garbage Collector Driver Relationship Specialty Start Date End Date Jewel Nuñez MD 40 [place] [address] PCP - General 08/30/17 Edgard Hallman MD [address] [place] [address] Dr R[address]ARDO [address] [place] [address] Ophthalmology 06/22/20 Mike Fontenot MD [address] [place] [address] Dr [address] [place] [address] Cardiology 06/22/20 Nahomy Hurst MD [address] [place] [address] [email or web address] 06/24/20 Jean Carlos Martínez MD [address] [place] [address] Drive [address] [place] [address] Gastroenterology 12/23/20 documented as of this encounter Additional Source Comments The information contained in this document represents components of the legal health record. It is not the complete legal health record.[facility]
--- OUTSIDE RECORDS SUMMARY | 2025-08-11 13:50 | XMS_ITS | Encounter Summary ---
Author Organization [facility] Address [address] [facility] [address] [place] [address] Phone Care Team Providers Care Manager Development Name Role Phone Jewel Nuñez MD Primary Care Provider [phone] Edgard Hallman MD Unavailable Mike Fontenot MD Unavailable [phone] Nahomy Hurst MD Unavailable [phone] Jean Carlos Martínez MD Unavailable [phone] Reason for Referral * MRI/CAT Scan - Closed Specialty Diagnoses / Procedures Referred By Contac t Referred To Contact Radiology Procedures Outside CT Abd/pelvis Report Only [facility] Internal Medicine 40 [place] [address] Phone: tel: fax: Referral ID Status Reason Start Date Expiration Date Visits Re quested Visits Authorized [id number] Closed 08/05/2025 1 1 Encounter Details Date Type Department Care Team (Late st Contact Info) Description 08/05/2025 Orders Only [facility] Internal Medicine 40 [place] [address] Thanh George MD [address] [place] [address] Social History Tobacco Use Types Packs/Day Years [...] on file documented as of this encounter Plan of Treatment Upcoming Encounters Date Type Department Care Team (Late st Contact Info) Description 09/23/2025 2:00 PM EST Office Visit [facility] Internal Medicine 40 [place], [place] [phone] Jewel Nuñez MD 40 [place], [place] [phone] [email or web address] 2025 2:00 PM EST Office Visit [facility] [address] [place] [address] Viki Thompson MD [address] [place] [address], [address] [place] [address] [email or web address] documented as of this encounter Procedures Procedure Name Priority Date/Time Associated Diagnosis Comments OUTSIDE CT ABD/PELVIS REPORT ONLY Routine 08/04/2025 12:26 PM EDT documented in this encounter Results * Outside CT Abd/pelvis Report Only (08/04/2025 12:26 PM EDT) us Historical Provider MD PEREIRA CT ABD/PELVIS Final R esult documented in this encounter Visit Diagnoses Not on filedocumented in this encounter Additional Health Concerns Assessment Noted Time PHQ-2 Depression Total Score: 0 12/16/19 25 1:14 PM EST documented as of this encounter Care Teams Manager Development Relationship Specialty Start Date End Date Jewel Nuñez MD 40 [place], [place] [phone] PCP - General 08/30/17 Edgard Hallman MD [address] [facility] [address] [place] [address] Ophthalmology 06/22/20 Mike Fontenot MD [address] [facility] [address] [place] [address] Cardiology 06/22/20 Nahomy Hurst MD [address] [place] [address] [email or web address] 06/24/20 Jean Carlos Martínez MD [address] [place] [address] Drive [address] [place] [address] Gastroenterology 12/23/20 documented as of this encounter Additional Source Comments The information contained in this document represents components of the legal health record. It is not the complete legal health record.[facility]
--- OUTSIDE RECORDS SUMMARY | 2025-08-11 13:50 | XMS_ITS | Encounter Summary ---
Author Organization [facility] Address [address] [place] [address] Phone Care Team Providers Care Kettle Cleaner Name Role Phone Jewel Nuñez MD Primary Care Provider [phone] Edgard Hallman MD Unavailable Mike Fontenot MD Unavailable [phone] Nahomy Hurst MD Unavailable [phone] Jean Carlos Martínez MD Unavailable [phone] Encounter Details Date Type Department Care Team (Late st Contact Info) Description 08/03/2025 Orders Only [facility] Internal Medicine 40 [place] [address] Provider, MD Thanh [address] [place] [address] Social History Tobacco Use Types [...] Description 09/23/2025 2:00 PM EST Office Visit [facility] Internal Medicine 40 [place] [address] Jewel Nuñez MD 40 [place], [place] [phone] [email or web address] 2025 2:00 PM EST Office Visit [facility] Diabetes Center [address] [place] [address] Viki Thompson MD 22 [facility], 1st [place] [address] [email or web address] documented as of this encounter Procedures Procedure Name Priority Date/Time Associated Diagnosis Comments OUTSIDE XR EXTREMITY LOWER REPORT ONLY Routine 08/03/2025 4:12 PM EDT documented in this encounter Results * Outside XR Extremity Lower Report Only (08/03/2025 4:12 PM EDT) us Historical Provider MD PEREIRA XR LOWER EXTREMITY Fi nal Result documented in this encounter Visit Diagnoses Not on filedocumented in this encounter Additional Health Concerns Assessment Noted Time PHQ-2 Depression Total Score: 0 12/16/19 25 1:14 PM EST documented as of this encounter Care Teams Kettle Cleaner Relationship Specialty Start Date End Date Jewel Nñuez MD 40 [place], [place] [phone] PCP - General 08/30/17 Edgard Hallman MD [address] [place] [address] [place] [phone] Ophthalmology 06/22/20 Mike Fontenot MD [address] [place] [address] [place] [address] Cardiology 06/22/20 Nahomy Hurst MD [address] [place] [address] [email or web address] 06/24/20 Jean Carlos Martínez MD [address] [place] [address] [place] [address] Gastroenterology 12/23/20 documented as of this encounter Additional Source Comments The information contained in this document represents components of the legal health record. It is not the complete legal health record.[facility]
--- OUTSIDE RECORDS SUMMARY | 2025-08-11 13:50 | XMS_ITS | Clinical Summary ---
Author Organization [facility] Address [address] [facility] [address] [place] [address] Phone Care Team Providers Care Junior [employer] Principal Name Role Phone Jewel Nuñez MD Primary Care Provider [phone] Edgard Hallman MD Unavailable Mike Fontenot MD Unavailable [phone] Nahomy Hurst MD Unavailable [phone] Jean Carlos Martínez MD Unavailable [phone] Allergies Active Allergy Reactions Criticality Noted Date [...] Nocturia 01/18/2018 Polycythemia 01/18/2018 Overview (07/31/2024): 07/01/24 [facility] [place]. 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 Essential hypertension 10/06/2017 Assessment & Plan [...] Encounters Date Type Department Care Team Description 08/05/2025 Orders Only [facility] Internal Medicine 40 [facility] [place] [address] Thanh George MD 08/04/2025 Telephone [facility] Internal Medicine 40 [facility] [place] [address] Jewel Nuñez MD FYI 08/03/2025 Orders Only [facility] Internal Medicine 40 [facility] [place] [address] Thanh George MD 07/29/2025 Telephone [facility] Internal Medicine 40 [facility] [place] [address] Jewel Nuñez MD VNA Update 06/17/2025 11:00 AM EDT Office Visit [facility] Internal Medicine 40 [facility] [place] [address] Jewel Nuñez MD Cellulitis of toe of right foot (Primary Dx); Former moderate cigarette smoker (10-19 per day); Former smoker 06/07/2025 Refill [facility] Diabetes [address] [place] [address] Viki Thompson MD Medication Refill 06/01/2025 Telephone [facility] [address] [place] [address] Viki Thompson MD All supplies must be changed to [employer] (All supplies must be changed to [employer]) 05/29/2025 2:00 PM EDT Office Visit [facility] [address] [place] [address] Viki Thompson MD Type 2 diabetes mellitus with hyperglycemia, without long-term current use of insulin (Primary Dx); Essential hypertension; Class 1 obesity; Pure hypercholesterolemia 05/18/[address] [place] [address] Viki Thompson MD Med Change Request 05/14/[address] [place] [address] Viki Thompson MD Medication Refill 05/13/2025 Telephone [facility] Internal Medicine [address] [place] [address] Jewel Nuñez MD No Show (4:30 appt) from Last 3 Months Immunizations Immunization Administration [...] your housing situation today? I have livia turner 12/16/2024 How many times have you move [...] Description 09/23/2025 2:00 PM EST Office Visit [facility] Internal Medicine 40 [place] [address] Jewel Nuñez MD 40 [place] [address] [email or web address] 2025 2:00 PM EST Office Visit [facility] [address] [place] [address] Viki Thompson MD [address] [place] [address], 1st [place] [address] [email or web address] Health Maintenance Due Date Last Done Comments [...] REPORT ONLY Routine 08/04/2025 12:26 PM EDT OUTSIDE XR EXTREMITY LOWER REPORT ONLY Routine 08/03/2025 4:12 PM EDT POCT HEMOGLOBIN A1C Routine 05/29/2025 2 :03 PM EDT Type 2 diabetes mellitus with hyperglycemia, without long-term current use of insulin OUTSIDE SERUM CREATININE LEVEL Routine 03/19/2025 OUTSIDE POTASSIUM LEVEL Routine 03/18/2025 COLONOSCOPY FOR RESULT ENTRY ONLY Routine 10/26/2023 BI MAMMOGRAM SCREENING (BILATERAL) Routine 09/11/2023 12:22 PM EDT Screening mammogram, encounter for HM DIABETES EYE EXAM FOR RESULT ENTRY ONLY Routine 05/30/2022 HEPATITIS C ANTIBODY, QUALITATIVE Routine 03/11/2019 12:47 PM EDT Need for hepatitis C screening test from Last 3 Months or Most Recently Relevant to Health Maintenance Results * Outside CT Abd/pelvis Report Only (08/04/2025 12:26 PM EDT) Historical Provider MD PEREIRA CT ABD/PELVIS Final R esult * Outside XR Extremity Lower Report Only (08/03/2025 4:12 PM EDT) Historical Provider MD PEREIRA XR LOWER EXTREMITY Fi nal Result * (ABNORMAL) POCT Hemoglobin A1c (05/29/2025 2:03 PM EDT) Hemoglobin A1c 12.3(A) 4.2 - 5.6 % [email or web address] Other 05/29/2025 2:03 PM EDT us Viki Thompson MD POINT OF CARE TEST ORDERABLES F inal Result [address] [address], [facility] * (ABNORMAL) Outside Serum Creatinine Level (03/19/2025) Creatinine, serum - External 0.73(A) 0.8 - 1.3 mg/dL Result [facility] Historical Provider LAB BLOOD ORDERABLES Cha l Result * Outside Potassium Level (03/18/2025) Potassium level - External 4.0 3.4 - 5.0 mmol/L Result [facility] Historical Provider LAB BLOOD ORDERABLES Cha l Result * HM COLONOSCOPY FOR RESULT ENTRY ONLY (10/26/2023) HM Colonoscopy 5 year recall EXTERNAL NON-INTERFACE D REF LAB Result [facility] Historical Provider HEALTH MAINTENANCE Final Result Performing Organization Address City/[facility]/ZIP Co de Phone Number EXTERNAL NON-INTERFACED REF LAB * HM MAMMOGRAPHY FOR RESULT ENTRY ONLY (09/02/2022) Result [facility] Historical Provider HEALTH MAINTENANCE Edited Result - Final * HM DIABETES EYE EXAM FOR RESULT ENTRY ONLY (05/30/2022) Result [facility] Historical Provider HEALTH MAINTENANCE Edited Result - Final * Hepatitis C antibody, qualitative (03/11/2019 12:47 PM EDT) HCV Negative Negative [facility] Comment: This is a screening test and should be confirmed with molecular testing Blood 03/11/2019 12:4 7 PM EDT 03/11/2019 8:10 PM EDT Result [facility] Jewel Nuñez MD LAB BLOOD ORDERABLES Final Re sult [address] [address] from Last 3 Months or Most Recently Relevant to Health Maintenance Insurance MEDICARE PART A & B [employer] MEDICARE SUPPLEMENT MEDICARE PART A & B [employer] MEDICARE SUPPLEMENT MEDICARE PART A & B [facility] MEDICARE SUPPLEMENT MEDICARE PART A & B MEDICARE SUPPLEMENT MEDICARE PART A & B MEDICARE SUPPLEMENT MEDICARE PART A & B [facility] MEDICARE SUPPLEMENT Care Teams [employer] Principal Relationship Specialty Start Date End Date Jewel Nuñez MD [address] [place] [address] PCP - General 08/30/17 Edgard Hallman MD [address] [place] [address] Dr [address] [place] [address] Ophthalmology 06/22/20 Mike Fontenot MD [address] [place] [address] Dr [address] [place] [address] Cardiology 06/22/20 Nahomy Hurst MD [address] [place] [address] [email or web address] 06/24/20 Jean Carlos Martínez MD [address] [place] [address] [address] [place] [address] Gastroenterology 12/23/20 Additional Source Comments The information contained in this document represents components of the legal health record. It is not the complete legal health record.[facility]
--- OUTSIDE RECORDS SUMMARY | 2025-08-11 13:50 | XMS_ITS | Clinical Summary ---
Author Organization [facility] ity Address [address] [place] [address] Care Team Providers Care Bone Char Operator Name Role Phone Unavailable Primary Care [...] Name Priority Date/Time Associated Diagnosis Comments [facility] SCREENING DIGITAL Routine 09/03/2022 8:59 AM EDT Encounter for screening mammogram for malignant neoplasm of breast [facility] DEXA AXIAL SKELETON Routine 12/20/2020 3:43 PM EST Encounter for screening for osteoporosis from Last 3 Months or Most Recently Relevant to Health Maintenance Results * [facility] SCREENING DIGITAL (09/03/2022 8:59 AM EDT) Anatomical Region Laterality Modality Mammography 08/31/2022 10:1 7 AM EDT Narrative 09/03/2022 8:59 AM EDT [facility] Diagnostic Imaging Department [address] [place] [address] Patient: TAVOSarbjitTIBURCIO /Age/Sex: 1960 - 61 - F Unit#: [id number] Location/Status: SPDIMAM/PRE CLI Mnemonic/Ordering Site: [facility] Ordering Physician: JEWEL NUÑEZ MD [facility] Screening Digital - 09/02/22 - 1004 EXAM: [facility] Screening Digital EXAM DATE AND TIME: 09/02/2022 10:04 AM HISTORY: Annual screening mammography. Limited mobility of the right shoulder due to injury. COMPARISON: 09/25/2020 through 12/31/2015. TECHNIQUE: CC and MLO views of both breasts were obtained using full field digital mammography. Bilateral digital breast tomosynthesis was performed in the MLO projection. Computer aided detection with the CarHound.2-MODLOFT was employed. TISSUE DENSITY: a. The breasts [...] Routine screening mammogram BILATERAL in 1 year. 23124, 06443 3342F, 7025F Dictating Physician: AMARILIS PRESTON MD Electronically Signed by: AMARILIS PRESTON MD Dic Date/Time: 09/03/2256 Sign date/Time: 09/03/2259 Procedure Note Lisa Preston MD - 11/01/2022 [facility] Diagnostic Imaging Department [address] [place] [address] Patient: TAVOSarbjitTIBURCIO/Age/Sex: 1960 - 61 - F Unit#: [id number] Location/Status: SPDIMAM/PRE CLI Mnemonic/Ordering Site: [facility] Ordering Physician: JEWEL NUÑEZ MD [facility] Screening Digital - 09/02/22 - 1004 EXAM: [facility] Screening Digital EXAM DATE AND TIME: 09/02/2022 10:04 AM HISTORY: Annual screening mammography. Limited mobility of the rightshoulder due to injury. COMPARISON: 09/25/2020 through 12/31/2015. TECHNIQUE: CC and MLO views of both breasts were obtained using fullfield digital mammography. Bilateral digital breast tomosynthesis was performedin the MLO projection. Computer aided detection with the CarHound.2-CONEXANCE MDas employed. TISSUE DENSITY: a. The breasts are [...] Routine screening mammogram BILATERAL in 1 year. 73842, 24668 3342F, 7025F Dictating Physician: AMARILIS PRESTON MD Electronically Signed by: AMARILIS PRESTON MD Dic Date/Time: 09/03/2256 Sign date/Time: 09/03/2259 Jewel Nuñez MD IMG BI PROCEDURES Final Result * [facility] DEXA AXIAL SKELETON (12/20/2020 3:43 PM EST) Anatomical Region Laterality Modality Mammography 12/20/2020 2:40 PM EST Narrative 12/20/2020 3:43 PM EST [facility] Diagnostic Imaging Department [address] [place] [id number] Patient: TIBURCIO ZELAYA Malorie Staton/Age/Sex: 1960 - 60 - F Unit#: [id number] Location/Status: SPDIMA/REG CLI Mnemonic/Ordering Site: [facility] Ordering Physician: ENEIDA PAYAN DIRECTOR OF SOCIAL SERVICES Rangel Dexa Axial Skeleton - 12/20/20 - [...] probability of hip fracture of 0.7%. Code 84948 Dictating Physician: TERRIE MARIA MD Electronically Signed by: TERRIE MARIA MD Dic Date/Time: 12/20/201541 Sign date/Time: 02/08/21 1543 Procedure Note Terrie Maria MD - 10/31/2022 [facility] Diagnostic Imaging Department [address] [place] [address] [id number] Patient: KRYSTIBURCIOJOANNE Siddiqui./Age/Sex: 1960 - 60 - F Unit#: [id number] Location/Status: [facility] CLI Mnemonic[facility] Ordering Physician: ENEIDA PAYAN DIRECTOR OF SOCIAL SERVICES Rangel Dexa Axial Skeleton - 12/20/201531 HISTORY: [...] density of the femurs bilaterally is 0.972 gm/sg0fwipc is 96% of that of young normals [...] probability of hip fracture of 0.7%. Code 46424 Dictating Physician: TERRIE MARIA MD Electronically Signed by: TERRIE MARIA MD Dic Date/Time: 12/20/20 1542 Sign date/Time: 12/20/20 1543 Eneida Payan NP IM BI PROCEDURES Final Resul t from Last 3 Months or Most Recently Relevant to Health Maintenance
--- OUTSIDE RECORDS SUMMARY | 2025-09-26 20:00 | XMS_ITS | Clinical Summary ---
Author Organization Unknown Care Team Providers [facility] Name Role Phone JUSTICE GONZALEZ, ASAD Unavailable Unavailable MIGUEL VIVEROS, CHANTELLE Unavailable Unavailable Payers Payer Name Policy Type Policy Number Effective Date Expira tion Date MEDICARE - [place] - PDGM [id number] Problems Condition Name Condition Details Condition Category Status Onset Date Resolution Date Last Treatment Date Treating Clinician Comments ENCOUNTER FOR ORTHOPEDIC AFTERCARE FOLLOWING SURGICAL AMP Active 11-12 00:00: 00 ACQUIRED ABSENCE OF RIGHT GREAT TOE Active 11-12 00:00: 00 SEPSIS, UNSPECIFIED ORGANISM Active 11-12 00:00: 00 CELLULITIS OF RIGHT TOE Active 11-12 00:00: 00 TYPE 2 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 Active 11-12 00:00: 00 TYPE 2 DIABETES MELLITUS WITH DIABETIC NEPHROPATHY Active 11-12 00:00: 00 ANXIETY DISORDER, UNSPECIFIED Active 11-12 00:00: 00 DEPRESSION, UNSPECIFIED Active 11-12 00:00: 00 OTHER SPECIFIED CHRONIC OBSTRUCTIVE PULMONARY DISEASE Active 11-12 00:00: 00 ATHSCL HEART DISEASE OF [place] CORONARY ARTERY W/O ANG PCTRS Active 11-12 00:00: 00 ESSENTIAL (PRIMARY) HYPERTENSION Active 11-12 00:00: 00 PRIMARY GENERALIZED (OSTEO)ARTHR ITIS Active 11-12 00:00: 00 GASTRO-ESOPH AGEAL REFLUX DISEASE WITHOUT ESOPHAGITIS Active 11-12 00:00: 00 PURE HYPERCHOLEST EROLEMIA, UNSPECIFIED Active 11-12 00:00: 00 Obesity, class 1 Active 11-12 00:00: 00 BODY MASS INDEX [BMI] 31.0-31.9, ADULT Active 11-12 00:00: 00 PERSONAL HISTORY OF NICOTINE DEPENDENCE Active 11-12 00:00: 00 LEFT BUNDLE-BRANC H BLOCK, UNSPECIFIED Active 11-12 00:00: 00 OTHER NURSING HOME (CURRENT) DRUG THERAPY Active 11-12 00:00: 00 BLADE GRINDER (CURRENT) USE OF ORAL HYPOGLYCEMIC DRUGS Active 11-12 00:00: 00 LNG TRM (CRNT) USE INJECTABLE NON-INSULIN ANTIDIABETIC DRUGS Active 11-12 00:00: 00 Allergies, Adverse Reactions, Alerts Allergy Name Allergy Type Status Severity Reaction(s) Onset Date Inactive Date Treating Clinician Comments DROPERIDOL Propensity to adverse reactions Active 07-30 23:57: 07 METFORMIN Propensity to adverse reactions Active 07-30 23:57: 21 PCNS Propensity to adverse reactions Active 07-30 23:57: 37 CODEINE Propensity to adverse reactions Active 07-30 23:57: 53 VICODIN Propensity to adverse reactions Active 07-30 23:58: 05 LATEX Propensity to adverse reactions Active 07-30 23:58: 18 Medications Ordered Medication Name Filled Medication Name Start Date Stop Date Current Medication? Ordering Clinician Indication Dosage Frequency Signature (SIG) Comments Components tramadol 50 mg tablet 07-29 00:00: 00 Yes [id number] 1 tablet EVERY 8 HOURS 1 tablet EVERY 8 HOURS (route: oral) Med Classific ation: Analgesic , Anti-infl ammatory or Antipyret ic Mounjaro 7.5 mg/0.5 mL subcutaneou s pen injector 07-19 00:00: 00 Yes [id number] Per instruc tions ONCE A WEEK Per instructio ns ONCE A WEEK (route: subcutaneo us) Med Classific ation: Endocrine omeprazole 20 mg capsule,del ayed release 07-11 00:00: 00 Yes [id number] Per instruc tions EVERY DAY Per instructio ns EVERY DAY (route: oral) Med Classific ation: Gastroint estinal Therapy Agents celecoxib 200 mg capsule 07-06 00:00: 00 Yes [id number] Per instruc tions TWICE A DAY Per instructio ns TWICE A DAY (route: oral) Med Classific ation: Analgesic , Anti-infl ammatory or Antipyret ic atorvastati n 40 mg tablet 07-30 00:00: 00 Yes [id number] 1 tablet BEDTIME 1 tablet BEDTIME (route: oral) Med Classific ation: Cardiovas cular Therapy Agents Colace 100 mg capsule 07-30 00:00: 00 Yes [id number] 1 capsule 2 TIMES DAILY 1 capsule 2 TIMES DAILY (route: oral) Med Classific ation: Gastroint estinal Therapy Agents Flonase Allergy Relief 50 mcg/actuati on nasal spray,suspe nsion 07-30 00:00: 00 Yes [id number] 1 spray DAILY 1 spray DAILY (route: nasal) Med Classific ation: Respirato ry Therapy Agents Jardiance 25 mg tablet 07-30 00:00: 00 Yes [id number] 1 tablet DAILY 1 tablet DAILY (route: oral) Med Classific ation: Endocrine lisinopril 5 mg tablet 07-30 00:00: 00 Yes [id number] 1 tablet DAILY 1 tablet DAILY (route: oral) Med Classific ation: Cardiovas cular Therapy Agents loratadine 10 mg tablet 07-30 00:00: 00 Yes [id number] 1 tablet DAILY 1 tablet DAILY (route: oral) Med Classific ation: Respirato ry Therapy Agents Tylenol Extra Strength 500 mg tablet 07-30 00:00: 00 Yes [id number] 2 tablet 4 TIMES DAILY 2 tablet 4 TIMES DAILY (route: oral) Med Classific ation: Analgesic , Anti-infl ammatory or Antipyret ic Vitamin D3 50 mcg (2,000 unit) tablet 07-30 00:00: 00 Yes [id number] 1 tablet DAILY 1 tablet DAILY (route: oral) Med Classific ation: Electroly te Balance-N utritiona l Products warfarin 7.5 mg tablet 07-31 00:00: 00 08-02 23:59 :00 No [id number] 1 tablet DAILY 1 tablet DAILY (route: oral) Med Classific ation: Hematolog ical Agents Vital Signs Vital Name Observation Time Observation Value Commen ts Temperature 2025-08-03 13:00:00.000 98.7 [degF] Temperature 2025-07-30 11:56:00.000 98.8 [degF] BMI (%) 2025-07-30 11:56:00.000 32 kg/m2 Height 2025-07-30 11:56:00.000 68 [in_us] Pulse 2025-08-03 13:00:00.000 112 /min Pulse 2025-07-30 11:56:00.000 92 /min Respirations 2025-08-03 13:00:00.000 18 /min Respirations 2025-07-30 11:56:00.000 20 /min Weight (lbs) 2025-07-30 11:56:00.000 215 [lb_av] Systolic Blood Pressure 2025-08-03 13:00:00.000 100 mm [Hg] Systolic Blood Pressure 2025-07-30 11:56:00.000 112 mm [Hg] Diastolic Blood Pressure 2025-08-03 13:00:00.000 58 mm [Hg] Diastolic Blood Pressure 2025-07-30 11:56:00.000 80 mm [Hg] Plan of Treatment Planned Activity Planned Date Details Comments Future Scheduled Test SKILLED NU RSE TO EVALUATE PATIENT, IDENTIFY PRIMARY AND CO-MORBID CONDITIONS CODED PER CODING GUIDELINES, AND DEVELOP PATIENT SPECIFIC PLAN OF CARE THAT INCLUDES PATIENT GOAL FOR HOME HEALTH. [code = SKILLED NURSE TO EVALUATE PATIENT, IDENTIFY PRIMARY AND CO-MORBID CONDITIONS CODED PER CODING GUIDELINES, AND DEVELOP PATIENT SPECIFIC PLAN OF CARE THAT INCLUDES PATIENT GOAL FOR HOME HEALTH.] Future Scheduled Test SKILLED NU RSE TO ASSESS ANXIETY AND PROVIDE ASSISTANCE TO PATIENT FOR UNDERSTANDING AND MANAGEMENT OF FEELINGS. [code = SKILLED NURSE TO ASSESS ANXIETY AND PROVIDE ASSISTANCE TO PATIENT FOR UNDERSTANDING AND MANAGEMENT OF FEELINGS.] Future Scheduled Test SKILLED NU RSE FOR O/A, TEACHING RELATED TO GERD FOR EARLY IDENTIFICATION OF EXACERBATION OF DISEASE PROCESS. [code = SKILLED NURSE FOR O/A, TEACHING RELATED TO GERD FOR EARLY IDENTIFICATION OF EXACERBATION OF DISEASE PROCESS.] Future Scheduled Test NEED FOR S KILLED TEACHING AND INTERVENTION RELATED TO SURGICAL WOUND OF RIGHT 2ND TOE AMPUTATION SKILLED NURSE OR TRAINED PATIENT/CAREGIVER TO PERFORM WOUND CARE USING CLEAN TECHNIQUE, CLEANSE/IRRIGATE WITH SALINE,,,, APPLY XEROFORM GAUZE TO WOUND BED, COVER WITH DCD), SECURE WITH MEDIFIX TAPE. WOUND CARE TO BE PERFORMED QOD AND PRN IF SOILED OR DISLODGED. WOUND CARE WILL BE PERFORMED BY TRAINED CAREGIVER ON DAYS WHEN SKILLED NURSE IS NOT SCHEDULED FOR A VISIT. DISCONTINUE WOUND CARE/SUPPLIES ONCE WOUND IS HEALED. [code = NEED FOR SKILLED TEACHING AND INTERVENTION RELATED TO SURGICAL WOUND OF RIGHT 2ND TOE AMPUTATION SKILLED NURSE OR TRAINED PATIENT/CAREGIVER TO PERFORM WOUND CARE USING CLEAN TECHNIQUE, CLEANSE/IRRIGATE WITH SALINE,,,, APPLY XEROFORM GAUZE TO WOUND BED, COVER WITH DCD), SECURE WITH MEDIFIX TAPE. WOUND CARE TO BE PERFORMED QOD AND PRN IF SOILED OR DISLODGED. WOUND CARE WILL BE PERFORMED BY TRAINED CAREGIVER ON DAYS WHEN SKILLED NURSE IS NOT SCHEDULED FOR A VISIT. DISCONTINUE WOUND CARE/SUPPLIES ONCE WOUND IS HEALED.] Future Scheduled Test SKILLED NU RSE TO OBTAIN BLOOD SUGAR PRN FOR SIGNS AND SYMPTOMS OF HYPO/HYPERGLYCEMIA. IF OBTAINED BY PATIENT/CAREGIVER PRIOR TO VISIT AND PATIENT IS NOT SYMPTOMATIC, SKILLED NURSE TO RECORD READING FROM PATIENT LOG. [code = SKILLED NURSE TO OBTAIN BLOOD SUGAR PRN FOR SIGNS AND SYMPTOMS OF HYPO/HYPERGLYCEMIA. IF OBTAINED BY PATIENT/CAREGIVER PRIOR TO VISIT AND PATIENT IS NOT SYMPTOMATIC, SKILLED NURSE TO RECORD READING FROM PATIENT LOG.] Future Scheduled Test SKILLED NU RSE FOR O/A OF MUSCULOSKELETAL STATUS AND TEACHING ON MEASURES TO MANAGE OA, TOE AMPUTATION AND TO MAINTAIN SAFETY WITH ACTIVITY [code = SKILLED NURSE FOR O/A OF MUSCULOSKELETAL STATUS AND TEACHING ON MEASURES TO MANAGE OA, TOE AMPUTATION AND TO MAINTAIN SAFETY WITH ACTIVITY] Future Scheduled Test SKILLED NU RSE FOR O/A AND SKILLED TEACHING IN MANAGEMENT OF CIRCULATORY/VASCULAR DISEASE. [code = SKILLED NURSE FOR O/A AND SKILLED TEACHING IN MANAGEMENT OF CIRCULATORY/VASCULAR DISEASE.] Future Scheduled Test PHYSICAL T HERAPIST TO EVALUATE PATIENT FOR STRENGTH AND GAIT TRAINING [code = PHYSICAL THERAPIST TO EVALUATE PATIENT FOR STRENGTH AND GAIT TRAINING] Future Scheduled Test SKILLED NU RSE TO PROVIDE TEACHING ON SIGNS AND SYMPTOMS AND MANAGEMENT OF HYPERTENSION. [code = SKILLED NURSE TO PROVIDE TEACHING ON SIGNS AND SYMPTOMS AND MANAGEMENT OF HYPERTENSION.] Future Scheduled Test SKILLED NU RSE TO INSTRUCT PATIENT/CAREGIVER ON COPD TO INCLUDE TEACHING AND SELF-MANAGEMENT RELATED TO COPD DISEASE PROCESS, SIGNS AND SYMPTOMS, AND COMPLICATIONS. [code = SKILLED NURSE TO INSTRUCT PATIENT/CAREGIVER ON COPD TO INCLUDE TEACHING AND SELF-MANAGEMENT RELATED TO COPD DISEASE PROCESS, SIGNS AND SYMPTOMS, AND COMPLICATIONS.] Future Scheduled Test SKILLED NU RSE FOR O/A AND TEACHING OF DIABETIC MANAGEMENT INCLUDING BLOOD SUGAR MONITORING/USE OF GLUCOMETER, DIABETIC DIET, LOWER EXTREMITY SKIN INSPECTION, PROPER SKIN/FOOT CARE, AND SIGNS AND SYMPTOMS HYPO/HYPERGLYCEMIA TO REPORT. [code = SKILLED NURSE FOR O/A AND TEACHING OF DIABETIC MANAGEMENT INCLUDING BLOOD SUGAR MONITORING/USE OF GLUCOMETER, DIABETIC DIET, LOWER EXTREMITY SKIN INSPECTION, PROPER SKIN/FOOT CARE, AND SIGNS AND SYMPTOMS HYPO/HYPERGLYCEMIA TO REPORT.] Future Scheduled Test PATIENT ONTIVEROS S A RISK OF HOSPITALIZATION AND ED USE. SKILLED NURSE TO ESTABLISH SUPPORT MEASURES TO MINIMIZE RISK OF HOSPITALIZATION AND ED USE, AND INSTRUCT PATIENT/CAREGIVER ON METHODS TO REDUCE AVOIDABLE HOSPITALIZATION AND ED USE. [code = PATIENT HAS A RISK OF HOSPITALIZATION AND ED USE. SKILLED NURSE TO ESTABLISH SUPPORT MEASURES TO MINIMIZE RISK OF HOSPITALIZATION AND ED USE, AND INSTRUCT PATIENT/CAREGIVER ON METHODS TO REDUCE AVOIDABLE HOSPITALIZATION AND ED USE.] Future Scheduled Test SKILLED NU RSE TO PROVIDE INSTRUCTION TO PATIENT/CAREGIVER RELATED TO DISCHARGE PLANNING. [code = SKILLED NURSE TO PROVIDE INSTRUCTION TO PATIENT/CAREGIVER RELATED TO DISCHARGE PLANNING.] Future Scheduled Test SKILLED NU RSE TO PERFORM ENVIRONMENTAL SAFETY RISK ASSESSMENT AND FALL RISK ASSESSMENT AND PROVIDE INSTRUCTION TO IMPLEMENT ENVIRONMENTAL SAFETY AND FALL PREVENTION STRATEGIES THROUGHOUT THE CERTIFICATION PERIOD. SKILLED NURSE WILL MAINTAIN SITUATIONAL AWARENESS AND WILL NOTIFY CLINICAL STEAM CONDITIONER FILLING AND PHYSICIAN/PROVIDER WITH ANY CHANGE IN CONDITION. [code = SKILLED NURSE TO PERFORM ENVIRONMENTAL SAFETY RISK ASSESSMENT AND FALL RISK ASSESSMENT AND PROVIDE INSTRUCTION TO IMPLEMENT ENVIRONMENTAL SAFETY AND FALL PREVENTION STRATEGIES THROUGHOUT THE CERTIFICATION PERIOD. SKILLED NURSE WILL MAINTAIN SITUATIONAL AWARENESS AND WILL NOTIFY CLINICAL STEAM CONDITIONER FILLING AND PHYSICIAN/PROVIDER WITH ANY CHANGE IN CONDITION.] Future Scheduled Test SKILLED NU RSE FOR OBSERVATION AND ASSESSMENT OF PATIENT S PAIN LEVEL AND EFFECTIVENESS OF PAIN MANAGEMENT REGIMEN. SKILLED NURSE TO INSTRUCT PATIENT/CAREGIVER REGARDING PHARMACOLOGIC AND NON-PHARMACOLOGIC PAIN CONTROL MEASURES. SKILLED NURSE TO REPORT TO PHYSICIAN IF PAIN LEVEL IS OUTSIDE OF ESTABLISHED PARAMETERS. [code = SKILLED NURSE FOR OBSERVATION AND ASSESSMENT OF PATIENT S PAIN LEVEL AND EFFECTIVENESS OF PAIN MANAGEMENT REGIMEN. SKILLED NURSE TO INSTRUCT PATIENT/CAREGIVER REGARDING PHARMACOLOGIC AND NON-PHARMACOLOGIC PAIN CONTROL MEASURES. SKILLED NURSE TO REPORT TO PHYSICIAN IF PAIN LEVEL IS OUTSIDE OF ESTABLISHED PARAMETERS.] Future Scheduled Test SKILLED NU RSE TO ASSESS PATIENT'S SKIN INTEGRITY AND INSTRUCT PATIENT/CAREGIVER ON MEASURES TO PREVENT PRESSURE ULCERS. [code = SKILLED NURSE TO ASSESS PATIENT'S SKIN INTEGRITY AND INSTRUCT PATIENT/CAREGIVER ON MEASURES TO PREVENT PRESSURE ULCERS.] Future Scheduled Test SKILLED NU RSE TO INSTRUCT PATIENT/CAREGIVER ON S/S OF NEUROPATHY AND METHODS TO MANAGE. [code = SKILLED NURSE TO INSTRUCT PATIENT/CAREGIVER ON S/S OF NEUROPATHY AND METHODS TO MANAGE.] Future Scheduled Test SKILLED NU RSE TO REVIEW PATIENT MEDICATIONS (PRESCRIPTION/OTC). INSTRUCT PATIENT/CAREGIVER ON ALL MEDICATIONS INCLUDING PURPOSE, WHEN TO TAKE, IMPORTANCE OF MEDICATION ADHERENCE, MONITORING OF EFFECTIVENESS, ADVERSE DRUG REACTIONS, POSSIBLE SIDE EFFECTS, AND WHEN TO NOTIFY AGENCY OR PHYSICIAN/PROVIDER OF ANY CONCERNS. [code = SKILLED NURSE TO REVIEW PATIENT MEDICATIONS (PRESCRIPTION/OTC). INSTRUCT PATIENT/CAREGIVER ON ALL MEDICATIONS INCLUDING PURPOSE, WHEN TO TAKE, IMPORTANCE OF MEDICATION ADHERENCE, MONITORING OF EFFECTIVENESS, ADVERSE DRUG REACTIONS, POSSIBLE SIDE EFFECTS, AND WHEN TO NOTIFY AGENCY OR PHYSICIAN/PROVIDER OF ANY CONCERNS.] Goal Patient Goal - GET THIS TOE BETTER Goal Provider Goal - A PLAN OF CARE WILL BE ESTABLISHED THAT MEETS PATIENT'S SHELTER NEEDS AND INCLUDES PATIENT GOAL FOR HOME HEALTH. Goal Provider Goal - SYMPTOMS OF ANXIETY ARE IDENTIFIED AND INTERVENTIONS INITIATED TO ENABLE PATIENT TO UNDERSTAND AND MANAGE FEELINGS THROUGHOUT EPISODE. Goal Provider Goal - EXACERBATIONS OF GASTROINTESTINAL DISEASE WILL BE PROMPTLY IDENTIFIED AND INTERVENTIONS IMPLEMENTED TO MINIMIZE RISKS TO PATIENT BY END OF EPISODE. Goal Provider Goal - WOUND CARE WILL BE COMPLETED AND PATIENT WILL HAVE IMPROVED WOUND STATUS EVIDENCED BY NO SIGNS AND SYMPTOMS OF INFECTION, DECREASED WOUND SIZE, AND/OR NO COMPLICATIONS BY THE END OF THE CERTIFICATION PERIOD. Goal Provider Goal - BLOOD SUGAR READING WILL BE OBTAINED ORDERED THROUGHOUT CERTIFICATION PERIOD. Goal Provider Goal - PATIENT/CAREGIVER WILL VERBALIZE/DEMONSTRATE ABILITY TO MANAGE MUSCULOSKELETAL DISEASE WHILE MAINTAINING SAFETY THROUGHOUT THE EPISODE. Goal Provider Goal - PATIENT/CAREGIVER WILL VERBALIZE/DEMONSTRATE THE ABILITY TO MANAGE CIRCULATORY DISEASE PROCESS AND EXACERBATIONS WILL BE IDENTIFIED FOR EARLY INTERVENTION THROUGHOUT THE CERTIFICATION PERIOD. Goal Provider Goal - A PHYSICAL THERAPY EVALUATION TO BE COMPLETED WITH RECOMMENDATIONS AND/OR WRITTEN PLAN OF TREATMENT ESTABLISHED FOR PHYSICIAN S SIGNATURE. Goal Provider Goal - PATIENT/CAREGIVER WILL VERBALIZE SIGNS AND SYMPTOMS OF HYPERTENSION AND WILL BE ABLE TO DEMONSTRATE ABILITY TO MANAGE EXACERBATION BY END OF THE EPISODE. Goal Provider Goal - PATIENT/CAREGIVER WILL VERBALIZE/DEMONSTRATE KNOWLEDGE AND MANAGEMENT OF COPD BY END OF EPISODE. Goal Provider Goal - PATIENT/CAREGIVER WILL VERBALIZE/DEMONSTRATE KNOWLEDGE OF DIABETIC MANAGEMENT. CHANGES IN DIABETIC STATUS WILL BE IDENTIFIED AND REPORTED TO PHYSICIAN FOR PROMPT INTERVENTION THROUGHOUT THE CERTIFICATION PERIOD. Goal Provider Goal - PATIENT WILL HAVE SUPPORT MEASURES ESTABLISHED TO PREVENT HOSPITALIZATION AND ED USE AND PATIENT/CAREGIVER WILL VERBALIZE/DEMONSTRATE METHODS TO REDUCE AVOIDABLE HOSPITALIZATION AND ED USE BY END OF EPISODE. Goal Provider Goal - PATIENT/CAREGIVER WILL VERBALIZE UNDERSTANDING OF DISCHARGE PLANNING INSTRUCTIONS BY DATE OF DISCHARGE. Goal Provider Goal - PATIENT/CAREGIVER WILL VERBALIZE/DEMONSTRATE EFFECTIVE ENVIRONMENTAL SAFETY AND FALL PREVENTION STRATEGIES, WILL REMAIN SAFE IN THE COMMUNITY, AND WILL BE FREE OF DANGER TO SELF AND OTHERS THROUGHOUT THE CERTIFICATION PERIOD. Goal Provider Goal - PATIENT/CAREGIVER WILL DEMONSTRATE UNDERSTANDING OF PHARMACOLOGIC AND NONPHARMACOLOGIC PAIN CONTROL MEASURES AND PATIENT WILL HAVE IMPROVEMENT IN PAIN INTERFERING WITH ACTIVITY EVIDENCED BY PAIN AT A LEVEL THAT IS ACCEPTABLE TO THE PATIENT AND PAIN LEVEL WITHIN ESTABLISHED PARAMETERS BY END OF CERTIFICATION PERIOD. Goal Provider Goal - PATIENT/CAREGIVER WILL VERBALIZE UNDERSTANDING OF PRESSURE ULCER PREVENTION BY END OF THE EPISODE. Goal Provider Goal - PATIENT/CAREGIVER WILL VERBALIZE S/S OF NEUROPATHY AND METHODS TO MANAGE BY END OF CERTIFICATION PERIOD. Goal Provider Goal - PATIENT/CAREGIVER WILL VERBALIZE UNDERSTANDING OF EDUCATION PROVIDED ON MEDICATIONS BY THE END OF THE CERTIFICATION PERIOD. Encounters Start Date/Time End Date/Time Encounter Type Admission Type Attending [facility] Care [facility] Care Department Encounter ID Discharge Date Discharge Status Discharge Condition Discharge Reason Percent Goals Met 2025-07-30 00:00:00 2025-09-27 00:00:00 Outpatient NEW ADMISSION CHANTELLE RIVERA [facility] [id number]
--- OUTSIDE RECORDS SUMMARY | 2025-09-26 20:00 | XMS_ITS | Clinical Summary ---
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 Active [...] 50 mg tablet 07-29 00:00: 00 Yes [id number] 1 tablet EVERY 8 HOURS 1 tablet EVERY 8 HOURS (route: oral) Med Classific ation: Analgesic , Anti-infl ammatory or Antipyret ic Mounjaro 7.5 mg/0.5 mL subcutaneou s pen injector 07-19 00:00: 00 Yes [id number] Per instruc tions ONCE A WEEK Per instructio ns ONCE A WEEK (route: subcutaneo us) Med Classific ation: Endocrine omeprazole 20 mg capsule,del ayed release 07-11 00:00: 00 Yes [id number] Per instruc tions EVERY DAY Per instructio ns EVERY DAY (route: oral) Med Classific ation: Gastroint estinal Therapy Agents celecoxib 200 mg capsule 07-06 00:00: 00 Yes [id number] Per instruc tions TWICE A DAY Per instructio ns TWICE A DAY (route: oral) Med Classific ation: Analgesic , Anti-infl ammatory or Antipyret ic atorvastati n 40 mg tablet 07-30 00:00: 00 Yes [id number] 1 tablet BEDTIME 1 tablet BEDTIME (route: oral) Med Classific ation: Cardiovas cular Therapy Agents Colace 100 mg capsule 07-30 00:00: 00 Yes [id number] 1 capsule 2 TIMES DAILY 1 capsule 2 TIMES DAILY (route: oral) Med Classific ation: Gastroint estinal Therapy Agents Flonase Allergy Relief 50 mcg/actuati on nasal spray,suspe nsion 07-30 00:00: 00 Yes [id number] 1 spray DAILY 1 spray DAILY (route: nasal) Med Classific ation: Respirato ry Therapy Agents Jardiance 25 mg tablet 07-30 00:00: 00 Yes [id number] 1 tablet DAILY 1 tablet DAILY (route: oral) Med Classific ation: Endocrine lisinopril 5 mg tablet 07-30 00:00: 00 Yes [id number] 1 tablet DAILY 1 tablet DAILY (route: oral) Med Classific ation: Cardiovas cular Therapy Agents loratadine 10 mg tablet 07-30 00:00: 00 Yes [id number] 1 tablet DAILY 1 tablet DAILY (route: oral) Med Classific ation: Respirato ry Therapy Agents Tylenol Extra Strength 500 mg tablet 07-30 00:00: 00 Yes [id number] 2 tablet 4 TIMES DAILY 2 tablet 4 TIMES DAILY (route: oral) Med Classific ation: Analgesic , Anti-infl ammatory or Antipyret ic Vitamin D3 50 mcg (2,000 unit) tablet 07-30 00:00: 00 Yes [id number] 1 tablet DAILY 1 tablet DAILY (route: oral) Med Classific ation: Electroly te Balance-N utritiona l Products warfarin 7.5 mg tablet 07-31 00:00: 00 08-02 23:59 :00 No [id number] 1 tablet DAILY 1 tablet DAILY (route: [...] MAINTAIN SITUATIONAL AWARENESS AND WILL NOTIFY CLINICAL SITE COORDINATOR AND PHYSICIAN/PROVIDER WITH ANY CHANGE IN CONDITION. [code = SKILLED NURSE TO PERFORM ENVIRONMENTAL SAFETY RISK ASSESSMENT AND FALL RISK ASSESSMENT AND PROVIDE INSTRUCTION TO IMPLEMENT ENVIRONMENTAL SAFETY AND FALL PREVENTION STRATEGIES THROUGHOUT THE CERTIFICATION PERIOD. SKILLED NURSE WILL MAINTAIN SITUATIONAL AWARENESS AND WILL NOTIFY CLINICAL SITE COORDINATOR AND PHYSICIAN/PROVIDER WITH ANY CHANGE IN CONDITION.] [...] CARE WILL BE ESTABLISHED THAT MEETS PATIENT'S USP NEEDS AND INCLUDES PATIENT GOAL FOR HOME [...] End Date/Time Encounter Type Admission Type Attending [facility] Care [facility] Care Department Encounter ID Discharge Date Discharge Status Discharge Condition Discharge Reason Percent Goals Met 2025-07-30 00:00:00 2025-09-27 00:00:00 Outpatient NEW ADMISSION CHANTELLE RIVERA [facility] [id number] 34.62
== END 2025-08-11 13:54 | disposition home or self-care (01) ==
LOC: HO.HVS 12:43
PROVIDERS: PCP Internal Medicine; Visit Provider Surgery Vascular Surgery
DX: I73.9 Peripheral vascular disease, unspecified (principal); Z89.421 Acquired absence of other right toe(s)
CPT/HCPCS: 99024

== ENCOUNTER → 2025-08-11 12:42 | Outpatient (BNVA) | payer MEDICARE, OTHER, SELFPAY | PROVIDERS: PCP Internal Medicine; Visit Provider Surgery Vascular Surgery | DX: T87.43 Infection of amputation stump, right lower extremity (principal); E11.9 Type 2 diabetes mellitus without complications; I73.9 Peripheral vascular disease, unspecified | CPT/HCPCS: 99212 ==

== ENCOUNTER 2025-08-13 08:14 | Emergency (ER) | payer MEDICARE, OTHER, SELFPAY ==
--- NOTE | ~2025-08-13 | US_ITS ---
EXAMINATION: US TRIPLEX LOWER EXTREMITY, RIGHT CLINICAL INFORMATION: Pain, right lower extremity. COMPARISON: Correlated to ultrasound arterial Doppler lower extremities. April 10, 2025. July 18, 2011 TECHNIQUE: Color-flow triplex imaging with spectral analysis and compression Doppler were performed on the right lower extremity. FINDINGS: Respiratory variation, normal compression and augmented flow demonstrated in the interrogated right common femoral vein, superficial femoral vein, profunda femoral vein, popliteal vein and midcalf peroneal and posterior tibial venous segments. Residual intraluminal hyperechoic abnormality in the right popliteal vein. Partial compressibility in the distal segment of the right greater saphenous vein, proximal and distal calf with heterogeneous intraluminal mixed isointense hyperechoic abnormality more prominent in the proximal calf. . There is no Ojeda's cyst. US/US venous duplex LE RT IMPRESSION: Probable old/chronic thrombus, proximal to distal calf right greater saphenous vein. Nonocclusive thrombus, right popliteal vein. Probable residual/old.. No acute deep venous thrombosis right lower extremity. Electronically signed by: Yordan Cai MD 08/13/2025 10:17 AM EDT
--- NOTE | ~2025-08-13 | XR_ITS ---
EXAMINATION: XR FOOT, RIGHT CLINICAL INFORMATION: s/p amputation, worsening skin infection COMPARISON: 08/03/2025. TECHNIQUE: AP, lateral, and oblique views of the right foot. FINDINGS: There has been amputation of the second digit at the MTP level. There is otherwise no fracture, dislocation, or suspicious bone lesion. No definite region of permeative bone changes to suggest radiographic changes of osteomyelitis. There are midfoot and hindfoot degenerative changes. There is a large plantar and dorsal calcaneal spurs. There are diffuse vascular calcifications in the soft tissues. There is mild soft tissue swelling of the dorsal forefoot. XR/XR foot RT min 3V IMPRESSION: 1. No definite radiographic evidence of osteomyelitis of the right foot. 2. Amputation of the second digit at the MTP level. Electronically signed by: Gerald Grimaldo MD 08/13/2025 12:10 PM EDT
--- NOTE | ~2025-08-13 | XR_ITS ---
EXAMINATION: XR TIBIA AND FIBULA, RIGHT CLINICAL INFORMATION: overlying infection r/o osteo COMPARISON: None available. TECHNIQUE: AP and lateral views of the right tibia and fibula were obtained. FINDINGS: Old trauma to the medial malleolus. No acute fracture or dislocation. No evidence of osteomyelitis. Degenerative changes at the ankle joint. Soft tissue arterial calcification. XR/XR tibia fibula RT 2V IMPRESSION: Old trauma of the medial malleolus. No evidence of osteomyelitis. Electronically signed by: Rebecca Ray MD 08/13/2025 12:16 PM EDT
[2025-08-13 08:36] VITALS: BP 161/78; PULSE 101; RESP 16; TEMP 36.5; O2SAT 99; BMI 31.0
--- NOTE | 2025-08-13 08:55 | ED.GENADULT ---
HPI - General Adult General Chief complaint: Extremity Injury, Lower Stated complaint: ? blood clot in R lower leg Time Seen by Provider: 08/13/25 08:33 Source: patient Mode of arrival: ambulatory Limitations: no limitations History of Present Illness ED Provider: CRYS GARZA PA-C HPI narrative: 64 yo F with PMH significant for diabetes, PAD, DVT, polycythemia vera on Coumadin, HTN, and hyperlipidemia presents to the ED with concerns of DVT to RLE. Patient reports small bump to medial aspect of right lower leg. She first noticed a weird feeling in this leg last night. Admits to waking up and seeing a bump to the area. No pain associated. Admits to concern for DVT due to her history. Admits to multiple lipomas to upper extremities. None to LEs. Patient is anticoagulated on Coumadin. Her most recent INR (Mon 08/10) was 1.9. Patient is s/p right 2nd toe amputation on 07/27/[address] Arriaga, was seen here 08/03/25 for cellulitis to the site. She is now receiving daptomycin via PICC. The area appears to be improving per patient. Follows with wound care/ vascular. She has limited pain to the foot and is able to ambulate around the house. She denies immobility over the past few days. Denies SOB, CP, cough, fevers/chills, n/v, extremity numbness/tingling or weakness. Related Data Home Medications ?Medication ?Instructions ?Recorded ?Confirmed celecoxib 200 mg capsule 200 mg PO BID 10/25/20 08/17/25 cholecalciferol (vitamin D3) 50 50 mcg PO DAILY 10/25/20 08/17/25 mcg (2,000 unit) capsule (Vitamin D3) omeprazole 20 mg capsule,delayed 20 mg PO DAILY@0630 10/25/20 08/17/25 release blood sugar diagnostic #10 ea 11/08/20 08/17/25 atorvastatin 40 mg tablet 40 mg PO BEDTIME 12/09/20 08/17/25 Held on 08/07/25. Instructions: Resume on 09/15/25. Hold statin while on daptomycin. Resume once you have completed full course of antibiotics. empagliflozin 25 mg tablet 25 mg PO DAILY 12/09/20 08/17/25 loratadine 10 mg tablet (Claritin) 10 mg PO DAILY 08/29/23 08/17/25 lisinopril 5 mg tablet 5 mg PO BEDTIME 09/26/23 08/17/25 warfarin 5 mg tablet 5 mg PO MOTH@1800 03/17/25 08/17/25 warfarin 5 mg tablet 7.5 mg PO SUTUWEFRSA@1800 03/17/25 08/17/25 fluticasone propionate 50 2 spray intranasal DAILY 04/21/25 08/17/25 mcg/actuation nasal spray,suspension tirzepatide 7.5 mg/0.5 mL 7.5 mg subcut SA 06/25/25 08/17/25 subcutaneous pen injector (Mounjaro) Previous Rx's ?Medication ?Instructions ?Recorded gauze bandage 1 X 5 yard #12 ea 03/19/25 hydrocolloid dressing 2 X 2 #200 ea 03/19/25 (Durafiber Dressing) tramadol 50 mg tablet 50 mg PO Q8H PRN pain #14 tabs 07/29/25 oxycodone-acetaminophen 5 mg-325 1 tab PO Q8H PRN pain #10 tabs 08/04/25 mg tablet (Percocet) insulin lispro 100 unit/mL 1 sliding scale dose subcut 08/07/25 subcutaneous pen (Admelog SolBritar USEASDIRECTD #15 mL U-100 Insulin lispro) Allergies Allergy/AdvReac Type Severity Reaction Status Date / Time droperidol (From INAPSINE) Allergy Severe Anaphylaxis Verified 08/17/25 14:00 egg (EGG) Allergy Severe Nausea and Verified 08/17/25 14:00 Vomiting latex (LATEX) Allergy Severe HIVES Verified 08/17/25 14:00 metformin (METFORMIN) Allergy Severe DIZZINESS Verified 08/17/25 14:00 AND NAUSEA penicillin V Allergy Severe RASH Verified 08/17/25 14:00 codeine (CODEINE) Allergy Intermediate Rash Verified 08/17/25 14:00 Hydrocodone Bitartrate Allergy Intermediate Rash Uncoded 08/17/25 14:00 Review of Systems Review of Systems: Yes all other systems are reviewed and are negative PMFSH Past Medical History Attestation statement: The following information was validated with the patient. Source: old records reviewed and nursing notes reviewed Medical History PAD (peripheral artery disease) Cellulitis LBBB (left bundle branch block) Hx of drainage of abscess DVT (deep venous thrombosis) Arthritis Low back pain Diabetes Elevated cholesterol Colon polyps Mccormack esophagus Bronchial asthma HTN (hypertension) Polycythemia Current use of anticoagulant therapy Surgical History S/P aortogram History of esophagogastroduodenoscopy (EGD) Previous back surgery Hx of colonoscopy History of hysterectomy History of delivery History of appendectomy History of cholecystectomy Family History Family History Father Heart disease Afib Heart attack Maternal Grandmother Lung cancer Maternal Grandfather Prostate CA Paternal Grandmother Heart attack Paternal Grandfather Heart attack Social History Social History Household Members: Spouse Housing: Apartment Are you a primary rn wound care to a significant other at home: No Do you presently have visiting nurse or other home services: Yes (vna) Alcohol intake: former Comment: pt rings appropriately for assistance to bathroom Patient Tobacco Use Status: Former Tobacco user Tobacco use type: Cigarette Cigarette Packs Per Day: 1 Years Smoked: 25 Substance Use Type: Marijuana Advance Directives Date on File: 07/27/25 service: No Current occupational status: retired Physical Exam ED Vital Signs: Vital Signs - 24 hr 08/13/25 08:36 Temperature 97.7 F Pulse Rate 101 H Respiratory Rate 16 Blood Pressure 161/78 H Pulse Oximetry 99 Oxygen Delivery Method Room Air BMI result Body Mass Index 31.0 Hypertensive, mildly tachycardic, afebrile General: Well appearing, in no acute distress. Skin: Warm, dry, intact. No rashes or lesions. Head: Normocephalic, atraumatic. EENT: Hearing is intact b/l. Conjunctiva clear. Sclera is anicteric. PERRLA. EOM intact. Moist mucous membranes.? Cardiac: Chest wall symmetric. RRR Lungs: Normal respiratory effort without accessory muscle use. CTA bilaterally Ext: + see photo of right foot below. noted erythema with central purulent discharge to amputation site. no overlying skin changes/erythema/swelling to right lower leg. small palpable lipoma noted to medial aspect of right lower leg, no palpable crepitus, deformity, tenderness. no calf tenderness. 2+dp pulse. Neuro: AOx3. Normal speech. Ambulating with steady gait. Course Course Course Narrative: CBC showing slight leukocytosis to 10.9, no left shift. No anemia, H and H stable. Chemistry without acute electrolyte abnormality requiring intervention. No LENI. Random glucose 139, no gap. Liver function WNL. Venous duplex showing probable old/chronic thrombus proximal to distal calf right greater saphenous vein. Nonocclusive thrombus right popliteal vein, probable old/residual. No acute DVT. No Ojeda's cyst. X-ray right tib-fib/foot without evidence of osteomyelitis or other acute osseous abnormality. > I reached out to vascular surgeon, dr. arriaga, who has reviewed chart/photos. States amputation site appears to be healing well, improved from previous visit. Does not recommend any change to current treatment plan. Advises to continue daptomycin through PICC line with outpatient follow up. > discussed all workup results with patient. Concerning mass to medial right lower leg, this appears to be a lipoma. She has a history of similar to other extremities. Advised to follow up with wound care/ dr. arriaga outpatient as scheduled with continuation of her daptomycin. Culture of amputation site sent to lab. Patient has remained stable throughout ED visit today. Discussed worrisome signs and symptoms and when to return to the ED. All questions answered at this time. Patient is agreeable with disposition and stable for discharge. Reevaluation(s) Reevaluation #1: patients wound culture resulted with gram negative rods. Patient already on daptomycin and following infectious disease. Time: 17:38 Medications Administered Discontinued Medications Generic Name Dose Route Start Last Admin Trade Name Freq PRN Reason Stop Dose Admin Heparin Sodium (Porcine) 50 0 units 08/13/25 16:00 08/13/25 15:32 units/ Sodium Chloride 5 ml IVFLUSH 50 unit QSHIFT [facility] Administration Medical Decision Making Medical Decision Making MDM Narrative: 64 yo F with PMH significant for diabetes, PAD, DVT, polycythemia vera on Coumadin, HTN, and hyperlipidemia presents to the ED with concerns of DVT to RLE. hypertensive and tachycardic, afebrile. she is well appearing and in KONSTANTIN. see photo of right foot above. noted erythema with central purulent discharge to amputation site. no overlying skin changes/erythema/swelling to right lower leg. no calf tenderness. no other open wounds. 2+dp pulse. Differential diagnosis includes msk sprain/strain, contusion, lipoma, DVT, cellulitis, osteomyelitis Plan for imaging and re-evaluation. Differential Diagnosis Differential Diagnoses: The differential diagnosis associated with the presentation includes as above. Admission/Observation not indicated. Consult Healthcare Provider Management of the patient was discussed with: Grants Administrator (vascular - dr. arriaga) Lab Data MDM Lab Attestation statement: I reviewed the patient's lab results. as above. 08/13/25 10:45 08/13/25 10:45 Labs: Lab Results 08/13/25 Range/Units 10:45 WBC 10.9 H (4.8-10.8) X10*3/uL RBC 4.76 (4.20-5.50) X10*6/uL Hgb 13.8 (12.0-16.0) g/dl Hct 41.4 (37.0-47.0) % MCV 87.0 (80.0-98.0) fL MCH 29.0 (27.0-33.0) pg MCHC 33.3 (31.0-35.0) g/dl RDW 13.5 (11.0-16.0) % Plt Count 343 D (160-400) X10*3/uL MPV 8.8 L (9.4-12.3) fL Immature Gran % (Auto) 1.3 H (0.0-0.4) % Neut % (Auto) 73.6 H (45-73) % Lymph % (Auto) 17.2 L (20-40) % Porter % (Auto) 6.7 (2-11) % Eos % (Auto) 0.7 (0-4) % Baso % (Auto) 0.5 (0-2) % Lymph # (Auto) 1.9 (1.2-4.9) X10*3/uL Porter # (Auto) 0.7 (0.1-1.2) X10*3/uL Eos # (Auto) 0.1 (0.0-0.4) X10*3/uL Baso # (Auto) 0.1 (0.0-0.2) X10*3/uL Abs Immat Gran (auto) 0.14 H (0.00-0.03) X10*3/uL Absolute Neuts (auto) 8.1 (2.0-8.3) x10*3/uL Absolute Nucleated RBC 0.000 (0.0-0.012) X10*3/uL Nucleated RBC % (auto) 0.0 (0.0-0.2) /100WBC PT 25.1 H D (10.9-12.4) SEC INR 2.2 H (0.9-1.1) Sodium 143 (135-145) mmol/L Potassium 3.8 (3.3-5.1) mmol/L Chloride 107 (96-108) mmol/L Carbon Dioxide 24 (22-29) mmol/L Anion Gap 16 (12-20) BUN 12 (9-16) mg/dL Creatinine 0.50 (0.5-1.4) mg/dL Estim Creat Clear Calc 131.7 Estimated GFR > 60 Random Glucose 139 H (60-115) mg/dL Calcium 8.9 D (8.4-10.2) mg/dL Magnesium 1.9 (1.6-2.6) mg/dL Total Bilirubin 0.3 (0.0-1.0) mg/dL AST 19 (5-31) U/L ALT 21 (0-31) U/L Alkaline Phosphatase 117 (39-117) U/L Total Protein 6.8 (6.5-8.0) g/dL Albumin 3.5 (3.5-5.0) g/dL Independent Interpretation I performed an independent interpretation of an: Plain X-Ray and Ultrasound Interpretation: X-ray right foot, tib/fib without acute fracture venous duplex without DVT Radiology Impression Discussion of test interpretation with radiology: I have reviewed the radiologist's reading. Radiologist Impression: Procedure(s): US venous duplex LE RT Accession Number(s): [id number] cc: Jewel Nuñez MD; Crys Garza~ Reason for Exam: RLE pain r/o dvt EXAMINATION: US TRIPLEX LOWER EXTREMITY, RIGHT CLINICAL INFORMATION: Pain, right lower extremity. COMPARISON: Correlated to ultrasound arterial Doppler lower extremities. April 10, 2025. July 18, 2011 TECHNIQUE: Color-flow triplex imaging with spectral analysis and compression Doppler were performed on the right lower extremity. FINDINGS: Respiratory variation, normal compression and augmented flow demonstrated in the interrogated right common femoral vein, superficial femoral vein, profunda femoral vein, popliteal vein and midcalf peroneal and posterior tibial venous segments. Residual intraluminal hyperechoic abnormality in the right popliteal vein. Partial compressibility in the distal segment of the right greater saphenous vein, proximal and distal calf with heterogeneous intraluminal mixed isointense hyperechoic abnormality more prominent in the proximal calf. . There is no Ojeda's cyst. US/US venous duplex LE RT IMPRESSION: Probable old/chronic thrombus, proximal to distal calf right greater saphenous vein. Nonocclusive thrombus, right popliteal vein. Probable residual/old.. No acute deep venous thrombosis right lower extremity. Electronically signed by: Yordan Cai MD 08/13/2025 10:17 AM EDT Date of Service: 08/13/25 Procedure(s): XR foot RT min 3V Accession Number(s): [id number] cc: Jewel Nuñez MD; Crys Garza~ Reason for Exam: s/p amputation, worsening skin infection EXAMINATION: XR FOOT, RIGHT CLINICAL INFORMATION: s/p amputation, worsening skin infection COMPARISON: 08/03/2025. TECHNIQUE: AP, lateral, and oblique views of the right foot. FINDINGS: There has been amputation of the second digit at the MTP level. There is otherwise no fracture, dislocation, or suspicious bone lesion. No definite region of permeative bone changes to suggest radiographic changes of osteomyelitis. There are midfoot and hindfoot degenerative changes. There is a large plantar and dorsal calcaneal spurs. There are diffuse vascular calcifications in the soft tissues. There is mild soft tissue swelling of the dorsal forefoot. XR/XR foot RT min 3V IMPRESSION: 1. No definite radiographic evidence of osteomyelitis of the right foot. 2. Amputation of the second digit at the MTP level. Electronically signed by: Gerald Grimaldo MD 08/13/2025 12:10 PM EDT EXAMINATION: XR TIBIA AND FIBULA, RIGHT CLINICAL INFORMATION: overlying infection r/o osteo COMPARISON: None available. TECHNIQUE: AP and lateral views of the right tibia and fibula were obtained. FINDINGS: Old trauma to the medial malleolus. No acute fracture or dislocation. No evidence of osteomyelitis. Degenerative changes at the ankle joint. Soft tissue arterial calcification. XR/XR tibia fibula RT 2V IMPRESSION: Old trauma of the medial malleolus. No evidence of osteomyelitis. Electronically signed by: Rebecca Ray MD 08/13/2025 12:16 PM EDT External Record Review External record reviewed: Inpatient record, Office record, Outpatient record, Prior outpatient labs and Prior outpatient radiology Prescription Management I considered prescription management with: Pain Medication and Antibiotic Chronic Conditions Patient?s care impacted by: Diabetes Social Determinants Patient?s care significantly limited by Social Determinants of Health including: Other Social Determinant of Health Critical Care Time Critical Care Time Critical Care Time: No Discharge Plan Discharge Clinical Impression: Lipoma Patient Disposition: Home, Self-Care Instructions: Lipoma (ED) Additional Instructions: You were evaluated in the ED today for a lump to your right lower leg. Your blood work is reassuring. The xrays of your leg/foot are reassuring and do not demonstrate infection within the bone. The ultrasound of your right leg does not demonstrate acute clot. The swabs from your surgical site were sent to the lab. You will be contacted if your antibiotics need to be altered. For now, continue your daptomycin. Follow up with Dr. Arriaga and Dr. Rosa as scheduled. Return with any new or worsening symptoms. In the case of an emergency call 911. Prescriptions: No Action celecoxib 200 mg capsule 200 mg PO BID omeprazole 20 mg capsule,delayed release(DR/EC) 20 mg PO DAILY@0630 cholecalciferol (vitamin D3) [Vitamin D3] 50 mcg (2,000 unit) Capsule 50 mcg PO DAILY warfarin 5 mg Tablet 7.5 mg PO SUTUWEFRSA@1800 Protocol: Dose Management Condition: Sunday (Week One) Dose/Route: 7.5 mg Instruction: 1.5 x 5 mg tablets Condition: Sunday Dose/Route: 7.5 mg Instruction: 1.5 x 5 mg tablets Condition: Sunday Dose/Route: 7.5 mg Instruction: 1.5 x 5 mg tablets Condition: Sunday Dose/Route: 7.5 mg Instruction: 1.5 x 5 mg tablets Condition: Dose/Route: 5 mg Instruction: 1 x 5 mg tablet Condition: Sunday Dose/Route: 7.5 mg Instruction: 1.5 x 5 mg tablets Condition: Sunday Dose/Route: 7.5 mg Instruction: 1.5 x 5 mg tablets Condition: Sunday ( Two) Dose/Route: 7.5 mg Instruction: 1.5 x 5 mg tablets Condition: Sunday Dose/Route: 5 mg Instruction: 1 x 5 mg tablet Condition: Sunday Dose/Route: 7.5 mg Instruction: 1.5 x 5 mg tablets Condition: Sunday Dose/Route: 7.5 mg Instruction: 1.5 x 5 mg tablets Condition: Dose/Route: 5 mg Instruction: 1 x 5 mg tablet Condition: Sunday Dose/Route: 7.5 mg Instruction: 1.5 x 5 mg tablets Condition: Sunday Dose/Route: 7.5 mg Instruction: 1.5 x 5 mg tablets Protocol Text: Adjustment Start Date: Sunday08/17/25 INR Value: 2.1 INR Date: 08/17/25 Recheck Date: 08/24/25 warfarin 5 mg tablet 5 mg PO MOTH@1800 Protocol: Dose Management Condition: Sunday (Week One) Dose/Route: 7.5 mg Instruction: 1.5 x 5 mg tablets Condition: Sunday Dose/Route: 7.5 mg Instruction: 1.5 x 5 mg tablets Condition: Sunday Dose/Route: 7.5 mg Instruction: 1.5 x 5 mg tablets Condition: Sunday Dose/Route: 7.5 mg Instruction: 1.5 x 5 mg tablets Condition: Dose/Route: 5 mg Instruction: 1 x 5 mg tablet Condition: Sunday Dose/Route: 7.5 mg Instruction: 1.5 x 5 mg tablets Condition: Sunday Dose/Route: 7.5 mg Instruction: 1.5 x 5 mg tablets Condition: Sunday ( Two) Dose/Route: 7.5 mg Instruction: 1.5 x 5 mg tablets Condition: Sunday Dose/Route: 5 mg Instruction: 1 x 5 mg tablet Condition: Sunday Dose/Route: 7.5 mg Instruction: 1.5 x 5 mg tablets Condition: Sunday Dose/Route: 7.5 mg Instruction: 1.5 x 5 mg tablets Condition: Dose/Route: 5 mg Instruction: 1 x 5 mg tablet Condition: Sunday Dose/Route: 7.5 mg Instruction: 1.5 x 5 mg tablets Condition: Sunday Dose/Route: 7.5 mg Instruction: 1.5 x 5 mg tablets Protocol Text: Adjustment Start Date: Sunday08/17/25 INR Value: 2.1 INR Date: 08/17/25 Recheck Date: 08/24/25 (DME) Durafiber Dressing 2 X 2 bandage See Rx Instructions .Route Qty: 200 0RF Rx Instructions: As directed (DME) gauze bandage 1 X 5 -yard bandage See Rx Instructions .Route Qty: 12 0RF Rx Instructions: As directed tramadol 50 mg tablet 50 mg PO Q8H PRN (Reason: pain) Qty: 14 0RF oxycodone-acetaminophen [Percocet] 5-325 mg tablet 1 tab PO Q8H PRN (Reason: pain) Qty: 10 0RF Rx Instructions: Partial Fill upon patient request. insulin lispro [Admelog SoloStar U-100 Insulin] 100 unit/mL insulin pen 1 sliding scale dose subcut USEASDIRECTD Qty: 15 0RF (DME) blood sugar diagnostic Strip See Rx Instructions Not Applicable BID Qty: 10 Rx Instructions: As directed atorvastatin 40 mg tablet 40 mg PO BEDTIME empagliflozin 25 mg tablet 25 mg PO DAILY lisinopril 5 mg tablet 5 mg PO BEDTIME Mounjaro 7.5 mg/0.5 mL pen injector 7.5 mg subcut SA Rx Instructions: takes on Saturdays loratadine [Claritin] 10 mg tablet 10 mg PO DAILY fluticasone propionate 50 mcg/actuation spray,suspension 2 spray intranasal DAILY Referrals: Jewel Nuñez MD [Primary Care Provider, Internal Medicine] Kylah Rosa MD [Physician, Infectious Disease] Hermann Arriaga MD [Physician, Vascular Surgery] Interventions: ED Discharge Assessment Last Done: 08/13/25 15:37 Discharge Date/Time: 08/13/25 15:37 Print Language: Cypriot
--- OUTSIDE RECORDS SUMMARY | 2025-08-13 09:09 | XMS_ITS | Clinical Summary ---
Author Organization [facility] ity Address [address] [place] [address] Care Team Providers Care Scow Captain Name Role Phone Unavailable Primary Care Provider Unavailabl e Social History Tobacco Use Types Packs/Day Years Used Date Smoking Tobacco: Never Assessed Comments Unknown Sex and Gender Information Value Date Recorded Sex Assigned at Not on file Legal Sex Female 3:09 AM EST Gender Identity Not on file Sexual Orientation Not on file Plan of Treatment Health Maintenance Due Date Last Done Comments Colorectal Cancer Screening: Colonoscopy 1960 DTaP,Tdap,and Td Vaccines (1 - Tdap) 1977 Pneumococcal Vaccine: 50+ Years (1 of 1 - PCV) 2008 Zoster Vaccines (1 of 2) 2008 Hepatitis C Screening 10/15/2022 Social Influencers of [...] Procedure Name Priority Date/Time Associated Diagnosis Comments [facility] SCREENING DIGITAL Routine 09/03/2022 8:59 AM EDT Encounter for screening mammogram for malignant neoplasm of breast [facility] DEXA AXIAL SKELETON Routine 12/20/2020 3:43 PM EST Encounter for screening for osteoporosis from Last 3 Months or Most Recently Relevant to Health Maintenance Results * [facility] SCREENING DIGITAL (09/03/2022 8:59 AM EDT) Anatomical Region Laterality Modality Mammography 08/31/2022 10:1 7 AM EDT Narrative 09/03/2022 8:59 AM EDT [facility] Diagnostic Imaging Department [address] [place] [address] Patient: TAVOSarbjitTIBURCIO /Age/Sex: 1960 - 61 - F Unit#: [id number] Location/Status: SPDIMAM/PRE CLI Mnemonic/Ordering Site: [facility] Ordering Physician: JEWEL NUÑEZ MD [facility] Screening Digital - 09/02/22 - 1004 EXAM: [facility] Screening Digital EXAM DATE AND TIME: 09/02/2022 10:04 AM HISTORY: Annual screening mammography. Limited mobility of the right shoulder due to injury. COMPARISON: 09/25/2020 through 12/31/2015. TECHNIQUE: CC and MLO views of both breasts were obtained using full field digital mammography. Bilateral digital breast tomosynthesis was performed in the MLO projection. 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 TISSUE DENSITY: a. The breasts [...] Routine screening mammogram BILATERAL in 1 year. 77730, 77111 3342F, 7025F Dictating Physician: AMARILIS PRESTON MD Electronically Signed by: AMARILIS PRESTON MD Dic Date/Time: 09/03/2256 Sign date/Time: 09/03/2259 Procedure Note Lisa Preston MD - 11/01/2022 [facility] Diagnostic Imaging Department [address] [place] [address] Patient: TAVOSarbjitTIBURCIO/Age/Sex: 1960 - 61 - F Unit#: [id number] Location/Status: SPDIMAM/PRE CLI Mnemonic/Ordering Site: [facility] Ordering Physician: JEWEL NUÑEZ MD [facility] Screening Digital - 09/02/22 - 1004 EXAM: [facility] Screening Digital EXAM DATE AND TIME: 09/02/2022 10:04 AM HISTORY: Annual screening mammography. Limited mobility of the rightshoulder due to injury. COMPARISON: 09/25/2020 through 12/31/2015. TECHNIQUE: CC and MLO views of both breasts were obtained using fullfield digital mammography. Bilateral digital breast tomosynthesis was performedin the MLO projection. 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 TISSUE DENSITY: a. The breasts are [...] Routine screening mammogram BILATERAL in 1 year. 85377, 24340 3342F, 7025F Dictating Physician: AMARILIS PRESTON MD Electronically Signed by: AMARILIS PRESTON MD Dic Date/Time: 09/03/2256 Sign date/Time: 09/03/2259 Jewel Nuñez MD IMG BI PROCEDURES Final Result * [facility] DEXA AXIAL SKELETON (12/20/2020 3:43 PM EST) Anatomical Region Laterality Modality Mammography 12/20/2020 2:40 PM EST Narrative 12/20/2020 3:43 PM EST [facility] Diagnostic Imaging Department [address] [place] [id number] Patient: TIBURCIO ZELAYA Malorie Staton/Age/Sex: 1960 - 60 - F Unit#: [id number] Location/Status: SPDIMA/REG CLI Mnemonic/Ordering Site: [facility] Ordering Physician: ENEIDA PAYAN FLAVOR T[employer]ER [facility]angel Dexa Axial Skeleton - 12/20/20 - [...] probability of hip fracture of 0.7%. Code 33500 Dictating Physician: TERRIE MARIA MD Electronically Signed by: TERRIE MARIA MD Dic Date/Time: 12/20/201541 Sign date/Time: 02/08/21 1543 Procedure Note Terrie Maria MD - 10/31/2022 [facility] Diagnostic Imaging Department [address] [place] [address] [id number] Patient: KRYSTIBURCIOJOANNE Siddiqui./Age/Sex: 1960 - 60 - F Unit#: [id number] Location/Status: [facility] CLI [facility]onic[facility] Ordering Physician: ENEIDA PAYAN [employer] T[employer] Rangel Dexa Axial Skeleton - 12/20/201531 HISTORY: [...] density of the femurs bilaterally is 0.972 gm/ta8scwsu is 96% of that of young normals [...] probability of hip fracture of 0.7%. Code 53811 Dictating Physician: TERRIE MARIA MD Electronically Signed by: TERRIE MARIA MD Dic Date/Time: 12/20/20 1542 Sign date/Time: 12/20/20 1543 Eneida Payan NP IM BI PROCEDURES Final Resul t from Last 3 Months or Most Recently Relevant to Health Maintenance
--- OUTSIDE RECORDS SUMMARY | 2025-08-13 09:09 | XMS_ITS | Patient Health Record ---
Author Organization [facility] Address [address] [place] [address] Care Team Providers Care Well Logger Name Role Phone Jewel Nuñez MD Primary Care Provider Jean Carlos Meadows Unavailable [phone] Freda Patel Unavailable Unavailable Allergies Allergen (clinical [...] Problem Status W/U Status Risk Notes Problem 200499612 Encounter for screening for malignant neoplasm of colon (Z12.11) Active confirmed Problem 207131764 History of adenomatous polyp of colon (Z86.010) Active confirmed Problem 801263579 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) Active confirmed Problem Diverticular disease of colon (181202922) Diverticulosis of large intestine without perforation or abscess without bleeding (K57.30) Active confirmed Problem Gastroesophageal reflux disease (901752256) Gastroesophageal reflux disease (K21.9) Active confirmed Problem 305127229 Gastroesophageal reflux disease without esophagitis (K21.9) Active confirmed Problem 093073830 Tubular adenoma of colon (D12.6) Active confirmed Problem 043916862 Gastroesophageal reflux disease, esophagitis presence not specified (K21.9) Active confirmed Problem Gastritis (7314230) Gastritis (K29.70) Active c onfirmed Problem Mccormack esophagus (995332252) 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 Plan Of Treatment Future Test Test Name Order Date COLONOSCOPY 11/27/2012 UPPER GI ENDOSCOPY 09/02/2019 COLONOSCOPY 09/02/2019 COLONOSCOPY 03/30/2020 UPPER GI ENDOSCOPY 07/19/2023 COLONOSCOPY 07/19/2023 Insurance Providers Payer Name Payer Address Payer Phone Subscriber Number Group Number Insured Name Patient Relationship to Insured Coverage Start Date Coverage End Date [facility] [address] [place] [address] [id number] TIBURCIO MARCANO Self - patient is the [...]
--- NOTE | 2025-08-13 09:37 | MHC.EDTECH ---
lab draw delayed per pt meghan SY and one prior draw SHIVA
--- NOTE | 2025-08-13 10:08 | MHC.EDTECH ---
uto labs x2 per PA will do an US line
[2025-08-13 10:49] VITALS: BP 141/84; PULSE 88; RESP 18; TEMP 36.6; O2SAT 97
[2025-08-13 10:56] LABS: MANUAL DIFF FLAG NO
[2025-08-13 11:00] LABS: Hematocrit 41.4 % (37.0-47.0); Hemoglobin 13.8 g/dl (12.0-16.0); Imm Gran Abs Auto 0.14 X10*3/uL (0.00-0.03); Imm Gran Pct Auto 1.3 % (0.0-0.4); Lymphocytes Absolute Auto 1.9 X10*3/uL (1.2-4.9); Mean Corpuscular HGB Conc 33.3 g/dl (31.0-35.0); Mean Corpuscular Hemoglobin 29.0 pg (27.0-33.0); Mean Corpuscular Volume 87.0 fL (80.0-98.0); NRBC Abs Auto 0.000 X10*3/uL (0.0-0.012); NRBC Pct Auto 0.0 /100WBC (0.0-0.2); Platelet Count 343 X10*3/uL (160-400); Red Blood Count 4.76 X10*6/uL (4.20-5.50); White Blood Count 10.9 X10*3/uL (4.8-10.8)
[2025-08-13 11:03] LABS: Prothrombin Time 25.1 SEC (10.9-12.4)
[2025-08-13 11:04] LABS: INTERNATIONAL NORM RATIO 2.2 (0.9-1.1)
[2025-08-13 11:15] LABS: Alanine Aminotransferase 21 U/L (0-31); Albumin Level 3.5 g/dL (3.5-5.0); Alkaline Phosphatase 117 U/L (39-117); Anion Gap 16 (12-20); Aspartate Amino Transferase 19 U/L (5-31); Blood Urea Nitrogen 12 mg/dL (9-16); Calcium 8.9 mg/dL (8.4-10.2); Carbon Dioxide 24 mmol/L (22-29); Chloride 107 mmol/L (96-108); Creatinine Clr Calc Pharmacy 131.7; Estimated Glomerular Filt Rate > 60; Magnesium 1.9 mg/dL (1.6-2.6); Potassium 3.8 mmol/L (3.3-5.1); Sodium 143 mmol/L (135-145); Total Protein 6.8 g/dL (6.5-8.0)
[2025-08-13 12:00] VITALS: BP 142/78; PULSE 72; RESP 18; O2SAT 96
[2025-08-13] MEDS: Heparin Sodium,Porcine Flush 50 UNITS, 0.9 % Sodium Chloride Flush 5 ML IVFLUSH (15:32)
[2025-08-13 15:37] VITALS: BP 144/72; PULSE 76; RESP 17; TEMP 36.6; O2SAT 98
--- OUTSIDE RECORDS SUMMARY | 2025-09-26 20:00 | XMS_ITS | Clinical Summary ---
Author Organization Unknown Care Team Providers Care Inspector Process Name Role Phone JUSTICE GONZALEZ, ASAD Unavailable Unavailable MIGUEL VIVEROS, CHANTELLE Unavailable Unavailable Payers Payer Name Policy Type Policy Number Effective Date Expira tion Date MEDICARE - [place] - PDGM [id number] Problems Condition Name Condition Details Condition Category [...] 11-12 00:00: 00 ATHSCL HEART DISEASE OF [place] CORONARY ARTERY W/O ANG PCTRS Active 11-12 [...] BLOCK, UNSPECIFIED Active 11-12 00:00: 00 OTHER CARE HOME (CURRENT) DRUG THERAPY Active 11-12 00:00: 00 CARE HOME (CURRENT) USE OF ORAL HYPOGLYCEMIC DRUGS Active [...] 50 mg tablet 07-29 00:00: 00 Yes [id number] 1 tablet EVERY 8 HOURS 1 tablet EVERY 8 HOURS (route: oral) Med Classific ation: Analgesic , Anti-infl ammatory or Antipyret ic Mounjaro 7.5 mg/0.5 mL subcutaneou s pen injector 07-19 00:00: 00 Yes [id number] Per instruc tions ONCE A WEEK Per instructio ns ONCE A WEEK (route: subcutaneo us) Med Classific ation: Endocrine omeprazole 20 mg capsule,del ayed release 07-11 00:00: 00 Yes [id number] Per instruc tions EVERY DAY Per instructio ns EVERY DAY (route: oral) Med Classific ation: Gastroint estinal Therapy Agents celecoxib 200 mg capsule 07-06 00:00: 00 Yes [id number] Per instruc tions TWICE A DAY Per instructio ns TWICE A DAY (route: oral) Med Classific ation: Analgesic , Anti-infl ammatory or Antipyret ic atorvastati n 40 mg tablet 07-30 00:00: 00 Yes [id number] 1 tablet BEDTIME 1 tablet BEDTIME (route: oral) Med Classific ation: Cardiovas cular Therapy Agents Colace 100 mg capsule 07-30 00:00: 00 Yes [id number] 1 capsule 2 TIMES DAILY 1 capsule 2 TIMES DAILY (route: oral) Med Classific ation: Gastroint estinal Therapy Agents Flonase Allergy Relief 50 mcg/actuati on nasal spray,suspe nsion 07-30 00:00: 00 Yes [id number] 1 spray DAILY 1 spray DAILY (route: nasal) Med Classific ation: Respirato ry Therapy Agents Jardiance 25 mg tablet 07-30 00:00: 00 Yes [id number] 1 tablet DAILY 1 tablet DAILY (route: oral) Med Classific ation: Endocrine lisinopril 5 mg tablet 07-30 00:00: 00 Yes [id number] 1 tablet DAILY 1 tablet DAILY (route: oral) Med Classific ation: Cardiovas cular Therapy Agents loratadine 10 mg tablet 07-30 00:00: 00 Yes [id number] 1 tablet DAILY 1 tablet DAILY (route: oral) Med Classific ation: Respirato ry Therapy Agents Tylenol Extra Strength 500 mg tablet 07-30 00:00: 00 Yes [id number] 2 tablet 4 TIMES DAILY 2 tablet 4 TIMES DAILY (route: oral) Med Classific ation: Analgesic , Anti-infl ammatory or Antipyret ic Vitamin D3 50 mcg (2,000 unit) tablet 07-30 00:00: 00 Yes [id number] 1 tablet DAILY 1 tablet DAILY (route: oral) Med Classific ation: Electroly te Balance-N utritiona l Products warfarin 7.5 mg tablet 07-31 00:00: 00 08-02 23:59 :00 No [id number] 1 tablet DAILY 1 tablet DAILY (route: oral) Med Classific ation: Hematolog ical Agents Vital Signs Vital Name Observation Time Observation Value Commen ts Temperature 2025-08-10 12:44:00.000 98.7 [degF] Temperature 2025-08-08 12:45:00.000 98.1 [degF] Temperature 2025-08-03 13:00:00.000 98.7 [degF] Temperature 2025-07-30 11:56:00.000 98.8 [degF] BMI (%) 2025-07-30 11:56:00.000 32 kg/m2 Height 2025-08-08 12:45:00.000 68 [in_us] Height 2025-07-30 11:56:00.000 68 [in_us] Pulse 2025-08-10 12:44:00.000 96 /min Pulse 2025-08-08 12:45:00.000 65 /min Pulse 2025-08-03 13:00:00.000 112 /min Pulse 2025-07-30 11:56:00.000 92 /min O2 Saturation (%) 2025-08-10 12:44:00.000 100 % O2 Saturation (%) 2025-08-08 12:45:00.000 100 % Respirations 2025-08-10 12:44:00.000 18 /min Respirations 2025-08-08 12:45:00.000 18 /min Respirations 2025-08-03 13:00:00.000 18 /min Respirations 2025-07-30 11:56:00.000 20 /min Weight (lbs) 2025-08-08 12:45:00.000 Weight (lbs) 2025-07-30 11:56:00.000 215 [lb_av] Systolic Blood Pressure 2025-08-10 12:44:00.000 110 mm [Hg] Systolic Blood Pressure 2025-08-08 12:45:00.000 102 mm [Hg] Systolic Blood Pressure 2025-08-03 13:00:00.000 100 mm [Hg] Systolic Blood Pressure 2025-07-30 11:56:00.000 112 mm [Hg] Diastolic Blood Pressure 2025-08-10 12:44:00.000 64 mm [Hg] Diastolic Blood Pressure 2025-08-08 12:45:00.000 64 mm [Hg] Diastolic Blood Pressure 2025-08-03 13:00:00.000 [...] MAINTAIN SITUATIONAL AWARENESS AND WILL NOTIFY CLINICAL CHILD LIFE ASSISTANT AND PHYSICIAN/PROVIDER WITH ANY CHANGE IN CONDITION. [code = SKILLED NURSE TO PERFORM ENVIRONMENTAL SAFETY RISK ASSESSMENT AND FALL RISK ASSESSMENT AND PROVIDE INSTRUCTION TO IMPLEMENT ENVIRONMENTAL SAFETY AND FALL PREVENTION STRATEGIES THROUGHOUT THE CERTIFICATION PERIOD. SKILLED NURSE WILL MAINTAIN SITUATIONAL AWARENESS AND WILL NOTIFY CLINICAL CHILD LIFE ASSISTANT AND PHYSICIAN/PROVIDER WITH ANY CHANGE IN CONDITION.] [...] AGENCY OR PHYSICIAN/PROVIDER OF ANY CONCERNS.] Goal 2025-08-08 Patient Goal - GET THIS TOE BETTER Goal Patient Goal - GET THIS TOE BETTER Goal Provider Goal - A PLAN OF CARE WILL BE ESTABLISHED THAT MEETS PATIENT'S CARE HOME NEEDS AND INCLUDES PATIENT GOAL FOR HOME [...] BY THE END OF THE CERTIFICATION PERIOD. Progress Notes Progress Notes <paragraph>[Visit Date: 2024 by CHANTELLE RIVERA RN]:</paragraph><paragraph>PROVIDED CARE:WOUND CARE TO RIGHT FOOT, INR OBTAINED. EDUCATED ON WOUND CARE TO RIGHT FOOT. REINFORCED EDUCATION ON IV ANTIBIOTIC ADMINISTRATION, INSTRUCTED TO CONTACT AGENCY IF HAVING TROUBLE /RESISTANCE FLUSHING LINE, S&S OF INFILTRATION, PHLEBITIS, DRESSING DISLOGEMENT.LATE ENTRY</paragraph><paragraph></paragraph><paragraph>SNV 08/10/25</paragraph><paragraph></paragraph><paragraph>ABNORMAL VITALS: VSS WITHIN SET PARAMETERS </paragraph><paragraph></paragraph><paragraph>FALLS: DENIES FALLS SINCE LAST VISIT.</paragraph><paragraph></paragraph><paragraph>ABNORMAL PHYSICAL ASSESSMENT FINDINGS: RIGHT FOOT AMPUTATION SITE WITH MACERATION ON PERIWOUND, LARGE AMOUNT ON PURULENT DRAINAGE, WOUND BED/SUTURES/ARLENE COVERED WITH WHITE SLOUGH, SLIGHT ODOR TO WOUND BED. </paragraph><paragraph></paragraph><paragraph>MEDICATION CHANGES: NO MED CHANGES </paragraph><paragraph></paragraph><paragraph>OBSERVATION AND ASSESSMENT PROVIDED:</paragraph><paragraph>A&OX3, RRR, LSCTA, DENIES CP/PALPITATIONS. NO S&S OF HYPO/HYPERGLYCEMIA. DENIES S&S OF UTI. AFEBRILE. [facility] 08/10. REPORTS [facility]. PICC LINE DRESSING CDI, PATIENT REPORTS NO CONCERN/QUESTIONS WITH IV ANTIBIOTIC ADMINISTRATION </paragraph><paragraph></paragraph><paragraph>EDUCATION: EDUCATED ON WOUND CARE TO RIGHT FOOT. REINFORCED EDUCATION ON IV ANTIBIOTIC ADMINISTRATION, INSTRUCTED TO CONTACT AGENCY IF HAVING TROUBLE /RESISTANCE FLUSHING LINE, S&S OF INFILTRATION, PHLEBITIS, DRESSING DISLOGEMENT.</paragraph><paragraph></paragraph><paragraph>INTERVENTIONS NEEDED AT NEXT VISIT: INTEGUMENTARY ASSESSMENT, WOUND CARE TO RIGHT FOOT, LABS , PICCLINE DRESSING CHANGE </paragraph><paragraph></paragraph><paragraph>COMMUNICATION WITH MD: SPOKE WITH DR BEAL'S PRACTICE SUPPORT SERVICES SPECIALIST, REPORTED WOUND FINDINGS. PATIENT TO BE SEEN BY SURGEON TOMORROW.</paragraph><paragraph>TC PLACED TO [facility], REPORTED INR ORDERS OBTAINED.</paragraph><paragraph></paragraph><paragraph>NEXT MD APPOINTMENT:</paragraph><paragraph>SURGEON 08/11</paragraph><paragraph></paragraph><paragraph>PT AND CAREGIVER INSTRUCTED TO CALL [facility] WITH ANY QUESTIONS OR CONCERNS AND/OR CHANGES IN CONDITION, STATE UNDERSTANDING</paragraph> Encounters Start Date/Time End Date/Time Encounter Type Admission Type Attending [facility] Facility Care Department Encounter ID Discharge Date Discharge Status Discharge Condition Discharge Reason Percent Goals Met 2025-07-30 00:00:00 2025-09-27 00:00:00 Outpatient NEW ADMISSION CHANTELLE RIVERA [facility] [id number] 34.62
--- OUTSIDE RECORDS SUMMARY | 2025-09-26 20:00 | XMS_ITS | Clinical Summary ---
Author Organization Unknown Care Team Providers Care W[employer] Laborer Name Role Phone JUSTICE GONZALEZ, ASAD Unavailable Unavailable MIGUEL VIVEROS, CHANTELLE Unavailable Unavailable Payers Payer Name Policy Type Policy Number Effective Date Expira tion Date MEDICARE - [place] PDGM [id number] Problems Condition Name Condition Details Condition Category [...] 11-12 00:00: 00 ATHSCL HEART DISEASE OF [place] CORONARY ARTERY W/O ANG PCTRS Active 11-12 [...] BLOCK, UNSPECIFIED Active 11-12 00:00: 00 OTHER CORRECTION (CURRENT) DRUG THERAPY Active 11-12 00:00: 00 CORRECTION (CURRENT) USE OF ORAL HYPOGLYCEMIC DRUGS Active [...] 50 mg tablet 07-29 00:00: 00 Yes [id number] 1 tablet EVERY 8 HOURS 1 tablet EVERY 8 HOURS (route: oral) Med Classific ation: Analgesic , Anti-infl ammatory or Antipyret ic Mounjaro 7.5 mg/0.5 mL subcutaneou s pen injector 07-19 00:00: 00 Yes [id number] Per instruc tions ONCE A WEEK Per instructio ns ONCE A WEEK (route: subcutaneo us) Med Classific ation: Endocrine omeprazole 20 mg capsule,del ayed release 07-11 00:00: 00 Yes [id number] Per instruc tions EVERY DAY Per instructio ns EVERY DAY (route: oral) Med Classific ation: Gastroint estinal Therapy Agents celecoxib 200 mg capsule 07-06 00:00: 00 Yes [id number] Per instruc tions TWICE A DAY Per instructio ns TWICE A DAY (route: oral) Med Classific ation: Analgesic , Anti-infl ammatory or Antipyret ic atorvastati n 40 mg tablet 07-30 00:00: 00 Yes [id number] 1 tablet BEDTIME 1 tablet BEDTIME (route: oral) Med Classific ation: Cardiovas cular Therapy Agents Colace 100 mg capsule 07-30 00:00: 00 Yes [id number] 1 capsule 2 TIMES DAILY 1 capsule 2 TIMES DAILY (route: oral) Med Classific ation: Gastroint estinal Therapy Agents Flonase Allergy Relief 50 mcg/actuati on nasal spray,suspe nsion 07-30 00:00: 00 Yes [id number] 1 spray DAILY 1 spray DAILY (route: nasal) Med Classific ation: Respirato ry Therapy Agents Jardiance 25 mg tablet 07-30 00:00: 00 Yes [id number] 1 tablet DAILY 1 tablet DAILY (route: oral) Med Classific ation: Endocrine lisinopril 5 mg tablet 07-30 00:00: 00 Yes [id number] 1 tablet DAILY 1 tablet DAILY (route: oral) Med Classific ation: Cardiovas cular Therapy Agents loratadine 10 mg tablet 07-30 00:00: 00 Yes [id number] 1 tablet DAILY 1 tablet DAILY (route: oral) Med Classific ation: Respirato ry Therapy Agents Tylenol Extra Strength 500 mg tablet 07-30 00:00: 00 Yes [id number] 2 tablet 4 TIMES DAILY 2 tablet 4 TIMES DAILY (route: oral) Med Classific ation: Analgesic , Anti-infl ammatory or Antipyret ic Vitamin D3 50 mcg (2,000 unit) tablet 07-30 00:00: 00 Yes [id number] 1 tablet DAILY 1 tablet DAILY (route: oral) Med Classific ation: Electroly te Balance-N utritiona l Products warfarin 7.5 mg tablet 07-31 00:00: 00 08-02 23:59 :00 No [id number] 1 tablet DAILY 1 tablet DAILY (route: [...] MAINTAIN SITUATIONAL AWARENESS AND WILL NOTIFY CLINICAL FIELD SPECIALIST AND PHYSICIAN/PROVIDER WITH ANY CHANGE IN CONDITION. [code = SKILLED NURSE TO PERFORM ENVIRONMENTAL SAFETY RISK ASSESSMENT AND FALL RISK ASSESSMENT AND PROVIDE INSTRUCTION TO IMPLEMENT ENVIRONMENTAL SAFETY AND FALL PREVENTION STRATEGIES THROUGHOUT THE CERTIFICATION PERIOD. SKILLED NURSE WILL MAINTAIN SITUATIONAL AWARENESS AND WILL NOTIFY CLINICAL FIELD SPECIALIST AND PHYSICIAN/PROVIDER WITH ANY CHANGE IN CONDITION.] [...] CARE WILL BE ESTABLISHED THAT MEETS PATIENT'S ASSISTED NEEDS AND INCLUDES PATIENT GOAL FOR HOME [...] OF HYPO/HYPERGLYCEMIA. DENIES S&S OF UTI. AFEBRILE. [facility] 08/10. REPORTS [facility]. PICC LINE DRESSING [...] WITH MD: SPOKE WITH DR BEAL'S PRACTICE LEAF STRIPPER, REPORTED WOUND FINDINGS. PATIENT TO BE SEEN BY SURGEON TOMORROW.</paragraph><paragraph>TC PLAC[facility] TO [facility], REPORTED INR ORDERS OBTAINED.</paragraph><paragraph></paragraph><paragraph>NEXT MD APPOINTMENT:</paragraph><paragraph>SURGEON 08/11</paragraph><paragraph></paragraph><paragraph>PT AND CAREGIVER INSTRUCTED TO CALL [facility] WITH ANY QUESTIONS OR CONCERNS AND/OR CHANGES IN CONDITION, STATE UNDERSTANDING</paragraph> Encounters Start Date/Time End Date/Time Encounter Type Admission Type Attending [facility] Facility Care Department Encounter ID Discharge Date Discharge Status Discharge Condition Discharge Reason Percent Goals Met 2025-07-30 00:00:00 2025-09-27 00:00:00 Outpatient NEW ADMISSION CHANTELLE RIVERA [facility] [id number] 34.62
== END 2025-08-13 15:37 | disposition home or self-care (01) ==
PROVIDERS: Physician Assistant Medical; Emergency Provider Emergency Medicine; PCP Internal Medicine
DX: D17.23 Benign lipomatous neoplasm of skin and subcutaneous tissue of right leg (principal); I10 Essential (primary) hypertension; E11.9 Type 2 diabetes mellitus without complications; Z86.718 Personal history of other venous thrombosis and embolism; Z79.01 Long term (current) use of anticoagulants; Z87.891 Personal history of nicotine dependence; Z89.421 Acquired absence of other right toe(s); Z79.899 Other long term (current) drug therapy
CPT/HCPCS: 36415; 73590; 73630; 80053; 83735; 85025; 85610; 87070; 87186; 87205; 93971; 96374; 99284; J1642

== ENCOUNTER → 2025-08-13 08:58 | Outpatient (BNV) | payer MEDICARE, OTHER, SELFPAY | PROVIDERS: Emergency Provider Emergency Medicine; PCP Internal Medicine; Visit Provider Radiology Diagnostic Radiology | DX: Z89.421 Acquired absence of other right toe(s) (principal) | CPT/HCPCS: 73630; 93971 ==

== ENCOUNTER 2025-08-25 10:46 | Outpatient (AMB) | payer MEDICARE, OTHER, SELFPAY ==
[2025-08-25 10:50] VITALS: BMI 31.0
--- NOTE | 2025-08-25 10:50 | MHC.OFFVIS ---
Vital Signs 08/25/25 10:50 Height 5 ft 8 in Weight 204 lb BMI 31.0 Intake Visit Reasons: 2 week follow up wound check Intake Note: 2 week wound check s/p Right 2nd toe amp 07/27/25. VNA coming sun,sun and sunday. Also has Left foot wounds. Going to woundCare today for the first time. Fire Hose Curer Required: No Accompanied by: Daughter Allergies droperidol (From INAPSINE) Allergy (Severe, Verified 08/25/25 11:06) Anaphylaxis egg (EGG) Allergy (Severe, Verified 08/25/25 11:06) Nausea and Vomiting latex (LATEX) Allergy (Severe, Verified 08/25/25 11:06) HIVES metformin (METFORMIN) Allergy (Severe, Verified 08/25/25 11:06) DIZZINESS AND NAUSEA penicillin V Allergy (Severe, Verified 08/25/25 11:06) RASH codeine (CODEINE) Allergy (Intermediate, Verified 08/25/25 11:06) Rash Hydrocodone Bitartrate Allergy (Intermediate, Uncoded 08/25/25 11:06) Rash HPI HPI 2 week follow up wound check: Details: Patient for routine wound check. She had undergone right 2nd toe amputation on 07/27/2025. She was subsequently readmitted with infection and currently has a PICC line with antibiotics. Of note her hemoglobin A1c continues to be poorly controlled with last 1 of a proximally 12. She has developed some new ulcers on the left lower extremity. She now presents for routine follow-up. [facility] Medical History (Updated 08/25/25 @ 12:53 by Hermann Adams MD) PAD (peripheral artery disease) Cellulitis LBBB (left bundle branch block) Hx of drainage of abscess DVT (deep venous thrombosis) Arthritis Low back pain Diabetes Elevated cholesterol Colon polyps Mccormack esophagus Bronchial asthma HTN (hypertension) Polycythemia Current use of anticoagulant therapy Surgical History S/P aortogram History of esophagogastroduodenoscopy (EGD) Previous back surgery Hx of colonoscopy History of hysterectomy History of delivery History of appendectomy History of cholecystectomy Family History Father Heart disease Afib Heart attack Maternal Grandmother Lung cancer Maternal Grandfather Prostate CA Paternal Grandmother Heart attack Paternal Grandfather Heart attack Social History Household Members: Spouse Housing: Apartment Are you a primary critical care specialist to a significant other at home: No Do you presently have visiting nurse or other home services: Yes (vna) Alcohol intake: former Comment: pt rings appropriately for assistance to bathroom Patient Tobacco Use Status: Former Tobacco user Tobacco use type: Cigarette Cigarette Packs Per Day: 1 Years Smoked: 25 Substance Use Type: Marijuana Advance Directives Date on File: 07/27/25 service: No Current occupational status: retired Review of Systems Const All systems reviewed & are unremarkable except as noted in HPI and below Reports no additional complaints ENT Reports Normal hearing present Card Denies chest pain, Denies chest pain at rest, Denies chest pain with activity and Denies pedal edema Resp Denies cough GI Denies abdominal pain Musc Denies abnormal gait, Denies muscle cramps and Denies radiating pain into limb Skin/Breast Denies skin ulcer and Denies wounds Neuro Reports Normal hearing present and Denies abnormal gait Psych Reports no additional complaints Physical Exam Vital Signs: BMI result Body Mass Index 31.0 Const General: cooperative, healthy appearing and comfortable Orientation/consciousness: oriented to person, oriented to place and oriented to time HEENT Head: Yes normal to inspection Neck Neck: Yes normal visual inspection Carotids: no bruits Chest Chest palpation & inspection: normal inspection of the chest Resp Effort & Inspection: normal respiratory effort and able to speak in complete sentences Auscultation: clear to auscultation bilaterally, no crackles, no rales, no rhonchi and no wheezes Cardio Rate: regular rate Rhythm: regular rhythm Heart sounds: S1 normal heart sound present and S2 normal heart sound present Bruits: no carotid bruits Peripheral pulses: Peripheral pulses 2+ throughout GI Inspection: Yes normal to inspection Skin Other: Wound on right lower extremity measuring 4 x 1 x 0.8 cm at amputation site Wounds: amputation site and wounds noted Hair: normal Neuro General: oriented to person, oriented to place and oriented to time Cranial nerves: Yes CN's II-XII intact bilaterally and Yes Normal hearing present Cognition (Neuro): normal cognition Motor exam (neuro): 5/5 motor strength present throughout Extrem Other: venous exam: No significant superficial varicosities or spider telangiectasias, minimal edema General: No clubbing, No cyanosis and No edema Psych Appearance: grossly normal Mental Status: mental status grossly normal Speech and movement: Normal speech and movement present Assessment & Plan Assessment & Plan (1) Postoperative wound infection: Code(s): T81.49XA - Infection following a procedure, other surgical site, initial encounter Category: Medical Plan: We will plan for continued follow-up. Patient is scheduled to see [facility] today. We will see us in approximately 3 months time. (2) PAD (peripheral artery disease): Comment: 04/29/2025 diagnostic angiogram Code(s): I73.9 - Peripheral vascular disease, unspecified Category: Medical Plan: Will need three-month arterial surveillance ultrasound. Orders: Orders US arterial duplex LE BI 3 Months I73.9 - Peripheral vascular disease, unspecified Coding Level of Care Code Est Pt Level 4 (42851) Complex EM visit Add On G2211 Diagnoses Postoperative wound infection T81.49XA PAD (peripheral artery disease) I73.9
--- OUTSIDE RECORDS SUMMARY | 2025-08-25 12:48 | XMS_ITS | Clinical Summary ---
Author Organization [facility] Address [address] [facility] [address] [place] [address] Phone Care Team Providers Care Sliding Joint Maker Name Role Phone Jewel Nuñez MD Primary Care Provider [phone] Edgard Hallman MD Unavailable Mike Fontenot MD Unavailable Nahomy Hurst MD Unavailable [phone] Jean Carlos Martínez MD Unavailable [phone] Allergies Active Allergy Reactions Criticality Noted Date Comments Codeine Palpitations Low 07/12/2017 Droperidol 07/12/2017 Other reaction(s): torticollis Hydrocodone-Acetamin ophen Nausea Only 07/12/2017 Latex Rash Low 07/12/2017 Metformin Hcl Nausea and/or Vomiting 07/12/2017 Penicillin Rash Low 07/12/2017 Medications alcohol PadM as directed 013 Active cholecalciferol (VITAMIN D3) 2,000 unit capsule Take 2,000 Units by mouth daily. Active omeprazole (PRILOSEC) 20 MG capsule Take 20 mg by mouth daily. 021 Active acetaminophen (TYLENOL) 500 MG tablet Take 2 tablets by mouth daily, as needed. Active guaifen/phenyleph/aceta minophn (TYLENOL SINUS SEVERE ORAL) Take 1 tablet by mouth daily as needed. Active loratadine (CLARITIN) 10 mg tablet Take 10 mg by mouth daily. Active lisinopril (PRINIVIL,ZESTRIL) 5 MG tabletIndications:Essen tial hypertension TAKE 1 TABLET (5 MG TOTAL) BY MOUTH DAILY. 90 tablet 2 025 Active atorvastatin (LIPITOR) 40 MG tabletIndications:Pure hypercholesterolemia TAKE 1 TABLET BY MOUTH EVERY DAY 90 tablet 3 025 Active warfarin (COUMADIN) 5 MG tabletIndications:Histo ry of DVT (deep vein thrombosis) TAKE 2 TABLETS BY MOUTH EVERY DAY DIRECTED 180 tablet 2 025 Active celecoxib (CELEBREX) 200 MG capsuleIndications:Prim patricia osteoarthritis involving multiple joints Take 1 capsule (200 mg total) by mouth 2 (two) times a day. 180 capsule 2 025 Active fluticasone propionate (FLONASE) 50 mcg/actuation nasal sprayIndications:Allerg ic rhinitis, unspecified seasonality, unspecified trigger 2 sprays by Nasal route daily. 48 mL 3 025 Active MOUNJARO 7.5 mg/0.5 mL PnIj subcutaneous penIndications:Type 2 diabetes mellitus with hyperglycemia, without long-term current use of insulin Inject 0.5 mL (7.5 mg total) under the skin once a week. E11.40 2 mL 3 025 Active FREESTYLE LITE Strp stripsIndications:Type 2 diabetes mellitus with hyperglycemia, without long-term current use of insulin Use to check blood sugar daily 50 strip 11 025 Active FREESTYLE LITE METER meter kitIndications:Type 2 diabetes mellitus with hyperglycemia, without long-term current use of insulin Use as instructed to check BG daily 1 each 025 Active FREESTYLE 28 gauge lancetsIndications:Type 2 diabetes mellitus with hyperglycemia, without long-term current use of insulin Use to check BG daily 50 each 11 025 Active JARDIANCE 25 mg tabletIndications:Type 2 diabetes mellitus without complication, without long-term current use of insulin TAKE 1 TABLET (25 MG TOTAL) BY MOUTH DAILY. 90 tablet 3 025 Active doxycycline monohydrate (MONODOX) 100 MG capsuleIndications:Cell ulitis of toe of right foot Take 1 capsule (100 mg total) by mouth 2 (two) times a day. 20 capsule 025 Active insulin pen needles, disposable, 32 gauge x 5/32 NdleIndications:Type 2 diabetes mellitus with hyperglycemia, without long-term current use of insulin,Type 2 diabetes mellitus with peripheral vascular disease Inject 1 each under the skin 3 (three) times a day before meals. E11.65, Z79.4 100 each 11 025 Active insulin syr/ndl U100 half dada 0.3 mL 31 gauge x 5/16 Syrg 1 each by Miscellaneous route 3 (three) times a day before meals. 100 each 1 025 2024 Disconti nued(Err or) Active Problems Problem Noted Date Diagnosed Date PAD (peripheral artery disease) 08/12/2025 Overview (08/12/2025): 04/29/2025 diagnostic angiogram Type 2 diabetes mellitus wit hout complication, [...] Rad is encouraged to remain active with [employer] and childcare She is advised to contact [...] Nocturia 01/18/2018 Polycythemia 01/18/2018 Overview (07/31/2024): 07/01/24 [facility] oncology Dr. 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 Essential hypertension 10/06/2017 Assessment & Plan [...] Encounters Date Type Department Care Team Description 08/21/2025 Orders Only [facility] [address] [place] [address] Thanh George MD 08/20/2025 Orders Only [facility] [address] [place] [address] ProviderThanh MD 08/17/2025 Orders Only [facility] [address] [place] [address] ProviderThanh MD 08/13/2025 Telephone [facility] [address] [place] [address] Jewel Nuñez MD Leg Swelling 08/12/2025 Telephone [facility] [address] [place] [address] Viki Thompson MD wrong Rx sent (wrong Rx sent) 08/12/[address] [place] [address] Alicia Crook CNP Medication Problem 08/11/2025 Telephone [facility] [address] [place] [address] Jewel Nuñez MD verbal orders 08/05/2025 Orders Only [facility] [address] [place] [address] Thanh George MD 08/04/2025 Telephone [facility] [address] [place] [address] Jewel Nuñez MD FYI 08/03/2025 Orders Only [facility] [address] [place] [address] ProviderThanh MD 07/29/2025 Telephone [facility] [address] [place] [address] Jewel Nuñez MD VNA Update 06/17/2025 11:00 AM EDT Office Visit [facility] [address] [place] [address] Jewle Nuñez MD Cellulitis of toe of right foot (Primary Dx); Former moderate cigarette smoker (10-19 per day); Former smoker 06/07/[address] [place] [address] Viki Thompson MD Medication Refill 06/01/2025 Telephone [facility] [address] [place] [address] Viki Thompson MD All supplies must be changed to Freestyle (All supplies must be changed to Freestyle) 05/29/2025 2:00 PM EDT Office Visit [facility] [address] [place] [address] Viki Thompson MD Type 2 diabetes mellitus with hyperglycemia, without long-term current use of insulin (Primary Dx); Essential hypertension; Class 1 obesity; Pure hypercholesterolemia from Last 3 Months Immunizations Immunization Administration [...] Description 09/23/2025 2:00 PM EST Office Visit [facility] [address] [place] [address] Jewel Nuñez MD [address] [place] [address] 2025 2:00 PM EST Office Visit [facility] [address] [place] [address] Viki Thompson MD [address] [facility], [address] [place] [address] Health Maintenance Due Date Last Done Comments COLOGUARD 2003 FIT TEST 2003 FOBT 2003 SIGMOIDOSCOPY 2003 VIRTUAL COLONOSCOPY 2003 LUNG CANCER SCREENING (LDCT Only) 2008 RSV VACCINE (1 - Risk 50-74 years 1-dose series) 2008 DIABETIC EYE EXAM 05/30/2023 05/30/2022, , 02/20/2019 OSTEOPOROSIS SCREENING INITIAL (ONE-TIME) 2023 COLONOSCOPY 10/26/2024 10/26/2023, 10/13, 11/01/2020, Additional history exists COLORECTAL CANCER SCREENING 10/26/2024 INFLUENZA VACCINE (#1) 2025 , 09/04/2017, 09/27/2015, Additional history exists COVID-19 VACCINE [...] Name Priority Date/Time Associated Diagnosis Comments OUTSIDE LAB Routine 08/21/2025 6:10 PM EDT OUTSIDE IMAGING Routine 08/21/2025 6:09 PM EDT OUTSIDE IMAGING Routine 08/21/2025 6:02 PM EDT OUTSIDE IMAGING Routine 08/21/2025 6:00 PM EDT OUTSIDE IMAGING Routine 08/20/2025 1:02 PM EDT OUTSIDE IMAGING Routine 08/20/2025 12:48 PM EDT OUTSIDE LAB Routine 08/19/2025 2:18 PM EDT OUTSIDE LAB 08/19/2025 OUTSIDE XR EXTREMITY LOWER REPORT ONLY Routine 08/13/2025 12:00 PM EDT OUTSIDE XR EXTREMITY LOWER REPORT ONLY Routine 08/13/2025 11:[address] ABD/PELVIS REPORT ONLY Routine 08/04/2025 [...] Relevant to Health Maintenance Results * Outside Lab (08/21/2025 6:10 PM EDT) Only the most recent of3 resultswithin the time period is included. Historical Provider LAB BLOOD ORDERABLES Cha l Result * Outside Imaging Report Only (08/21/2025 6:09 PM EDT) Historical Provider MD PEREIRA XR CHEST Final Res ult * Outside Imaging Report Only (08/21/2025 6:02 PM EDT) Historical Provider MD PEREIRA XR CHEST Final Res ult * Outside Imaging Report Only (08/21/2025 6:00 PM EDT) [facility] Provider IMG XR CHEST Final Res ult * Outside Imaging Report Only (08/20/2025 1:02 PM EDT) [facility] Provider IMG XR CHEST Final Res ult * Outside Imaging Report Only (08/20/2025 12:48 PM EDT) [facility] Provider IMG XR CHEST Final Res ult * Outside XR Extremity Lower Report Only (08/13/2025 12:00 PM EDT) Result [facility] Provider IMG XR LOWER EXTREMITY Fi nal Result * Outside XR Extremity Lower Report Only (08/13/2025 11:10 AM EDT) Result [facility] Provider IMG XR LOWER EXTREMITY Fi nal Result * Outside CT Abd/pelvis Report Only (08/04/2025 12:26 PM EDT) Result [facility] Provider IMG CT ABD/PELVIS Final R esult * Outside XR Extremity Lower Report Only (08/03/2025 4:12 PM EDT) Result [facility] Provider IMG XR LOWER EXTREMITY Fi nal Result * (ABNORMAL) POCT Hemoglobin A1c (05/29/2025 2:03 PM EDT) Pathologist [facility] Hemoglobin A1c 12.3(A) 4.2 - 5.6 % [facility] Other 05/29/2025 2:03 PM EDT Result [facility] Viki Thompson MD POINT OF CARE TEST ORDERABLES F inal Result [facility] [address] [place] [address], [facility] * (ABNORMAL) Outside Serum Creatinine Level (03/19/2025) Pathologist [facility] Creatinine, serum - External 0.73(A) 0.8 - 1.3 mg/dL Result [facility] Historical Provider LAB BLOOD ORDERABLES Cha l Result * Outside Potassium Level (03/18/2025) Pathologist [facility] Potassium level - External 4.0 3.4 - 5.0 mmol/L Result [facility] Historical Provider LAB BLOOD ORDERABLES Cha l Result * COLONOSCOPY FOR RESULT ENTRY ONLY (10/26/2023) Pathologist [facility] Colonoscopy 5 year recall EXTERNAL NON-INTERFACE D REF LAB Result [facility] Provider HEALTH MAINTENANCE Final Result EXTERNAL NON-INTERFACED REF LAB * MAMMOGRAPHY FOR RESULT ENTRY ONLY (09/02/2022) Result [facility] Provider HEALTH MAINTENANCE Edited Result - Final * DIABETES EYE EXAM FOR RESULT ENTRY ONLY (05/30/2022) Result [facility] Provider HEALTH MAINTENANCE Edited Result - Final * Hepatitis C antibody, qualitative (03/11/2019 12:47 PM EDT) [facility] HCV Negative Negative [facility] Comment: This is a screening test and should be confirmed with molecular testing Blood 03/11/2019 12:4 7 PM EDT 03/11/2019 8:10 PM EDT Result [facility] Jewel Nuñez MD LAB BLOOD ORDERABLES Final Re sult [facility] [address] [place] [address] from Last 3 Months or Most Recently Relevant to Health Maintenance Insurance MEDICARE PART A & B [facility] [employer] MEDICARE SUPPLEMENT MEDICARE PART A & B [facility] EXTENSION MEDICARE SUPPLEMENT MEDICARE PART A & B [employer] MEDICARE SUPPLEMENT MEDICARE PART A & B [employer] MEDICARE SUPPLEMENT MEDICARE PART A & B [facility] MEDICARE SUPPLEMENT MEDICARE PART A & B [facility] EXTENSION MEDICARE SUPPLEMENT Care Teams Sliding Joint Maker Relationship Specialty Start Date End Date Jewel Nuñez MD [address] [place] [address] [email or web address] PCP - General 08/30/17 Edgard Hallman MD [address] [place] [address] Dr [address] [place] [address] Ophthalmology 06/22/20 Mike Fontenot MD [address] [place] [address] [place] [address] Cardiology 06/22/20 Nahomy Hurst MD [address] [place] [address] [email or web address] Hematology and Oncology 06/24/20 Jean Carlos Martínez MD [address] [place] [address] [place] [address] Gastroenterology 12/23/20 Additional Source Comments The information contained in this document represents components of the legal health record. It is not the complete legal health record.[facility]
--- OUTSIDE RECORDS SUMMARY | 2025-08-25 12:48 | XMS_ITS | Encounter Summary ---
Author Organization [facility] Address [address] [place] [address] Phone Care Team Providers Care Certified Breastfeeding Educator Name Role Phone Jewel Nuñez MD Primary Care Provider Edgard Hallman MD Unavailable Mike Fontenot MD Unavailable [phone] Nahomy Hurst MD Unavailable [phone] Jean Carlos Martínez MD Unavailable [phone] Encounter Details Date Type Department Care Team (Late st Contact Info) Description 08/20/2025 Orders Only [facility] Internal Medicine [address] [place] [address] Provider, MD Thanh [address] [place] [address] Social History Tobacco Use Types [...] Description 09/23/2025 2:00 PM EST Office Visit [facility] [address] [place] [address] Jewel Nuñez MD [address] [place] [address] 2025 2:00 PM EST Office Visit [facility] [address] [place] [address] Viki Thompson MD [address] [facility], [address] [place] [address] documented as of this encounter Procedures Procedure Name Priority Date/Time Associated Diagnosis Comments OUTSIDE IMAGING Routine 08/20/2025 1:02 PM EDT OUTSIDE IMAGING Routine 08/20/2025 12:48 PM EDT OUTSIDE LAB Routine 08/19/2025 2:18 PM EDT documented in this encounter Results * Outside Imaging Report Only (08/20/2025 1:02 PM EDT) Historical Provider IMG XR CHEST Final Res ult * Outside Imaging Report Only (08/20/2025 12:48 PM EDT) Historical Provider IMG XR CHEST Final Res ult * Outside Lab (08/19/2025 2:18 PM EDT) Historical Provider LAB BLOOD ORDERABLES Cha l Result documented in this encounter Visit Diagnoses Not on filedocumented in this encounter Additional Health Concerns Assessment Noted Time PHQ-2 Depression Total Score: 0 12/16/19 25 1:14 PM EST documented as of this encounter Care Teams Certified Breastfeeding Educator Relationship Specialty Start Date End Date Jewel Nuñez MD [address] [place] [address] PCP - General 08/30/17 Edgard Hallman MD [address] [place] [address] Dr [address] [place] [address] Ophthalmology 06/22/20 Mike Fontenot MD [address] [place] [address] [address] [place] [address] Cardiology 06/22/20 Nahomy Hurst MD [address] [place] [address] [email or web address] Hematology and Oncology 06/24/20 Jean Carlos Martínez MD [address] [place] [address] [address] [place] [address] Gastroenterology 12/23/20 documented as of this encounter Additional Source Comments The information contained in this document represents components of the legal health record. It is not the complete legal health record.[facility]
--- OUTSIDE RECORDS SUMMARY | 2025-08-25 12:48 | XMS_ITS | Encounter Summary ---
Author Organization [facility] Address [address] [facility] [address] [place] [address] Phone Care Team Providers Care Crop Setting Out Machine Operator Name Role Phone Jewel Nuñez MD Primary Care Provider [phone] Edgard Hallman MD Unavailable Mike Fontenot MD Unavailable [phone] Nahomy Hurst MD Unavailable [phone] Jean Carlos Martínez MD Unavailable [phone] Reason for Referral * MRI/CAT Scan - Closed Specialty Diagnoses / Procedures Referred By Contac t Referred To Contact Radiology Procedures Outside CT Abd/pelvis Report Only [facility] [address] [place] [address] Phone: tel: fax: Referral ID Status Reason Start Date Expiration Date Visits Re quested Visits Authorized [id number] Closed 08/05/2025 1 1 Encounter Details Date Type Department Care Team (Late st Contact Info) Description 08/05/2025 Orders Only [facility] Internal [facility] [address] [place] [address] Thanh George MD [address] [place] [address] Social History Tobacco Use Types [...] Description 09/23/2025 2:00 PM EST Office Visit [facility] [address] [place], [place] [phone] Jewel Nuñez MD [address] [place], [place] [id number] [email or web address] 2025 2:00 PM EST Office Visit [facility] [address] [place] [address] Viki Thompson MD [address] [place] [address], [address] [place] [address] [email or web address] documented as of this encounter Procedures Procedure [...] documented as of this encounter Care Teams Crop Setting Out Machine Operator Relationship Specialty Start Date End Date Jewel Nuñez MD [address] [place], [place] [phone] PCP - General 08/30/17 Edgard Hallman MD [address] [facility] [address] [place] [address] Ophthalmology 06/22/20 Mike Fontenot MD [address] [place] [address] Cardiology 06/22/20 Nahomy Hurst MD [address] [place] [address] [email or web address] Hematology and Oncology 06/24/20 Jean Carlos Martínez MD [address] [place] [address] Drive [address] [place] [address] Gastroenterology 12/23/20 documented as of this encounter Additional Source Comments The information contained in this document represents components of the legal health record. It is not the complete legal health record.[facility]
--- OUTSIDE RECORDS SUMMARY | 2025-08-25 12:48 | XMS_ITS | Encounter Summary ---
Author Organization [facility] Address [address] [facility] [address] [place] [address] Phone Care Team Providers Care Bone Char Kiln Operator Name Role Phone Jewel Nuñez MD Primary Care Provider Edgard Hallman MD Unavailable Mike Fontenot MD Unavailable [phone] Nahomy Hurst MD Unavailable [phone] Jean Carlos Martínez MD Unavailable [phone] Encounter Details Date Type Department Care Team (Late st Contact Info) Description 08/21/2025 Orders Only [facility] Internal Medicine [address] [place] [address] Provider, MD Thanh [address] [place] [address] Social History Tobacco Use Types [...] Description 09/23/2025 2:00 PM EST Office Visit [facility] Medicine [address] [place] [address] Jewel Nuñez MD [address] [place], [place] [phone] [email or web address] 2025 2:00 PM EST Office Visit [facility] [address] [place] [address] Viki Thompson MD [address] [facility], [address] [place] [address] [email or web address] documented as of this encounter Procedures Procedure Name Priority Date/Time Associated Diagnosis Comments OUTSIDE LAB Routine 08/21/2025 6:10 PM EDT OUTSIDE IMAGING Routine 08/21/2025 6:09 PM EDT OUTSIDE IMAGING Routine 08/21/2025 6:02 PM EDT OUTSIDE IMAGING Routine 08/21/2025 6:00 PM EDT documented in this encounter Results * Outside Lab (08/21/2025 6:10 PM EDT) Historical Provider LAB BLOOD ORDERABLES Cha l Result * Outside Imaging Report Only (08/21/2025 6:09 PM EDT) [facility] Provider IMG XR CHEST Final Res ult * Outside Imaging Report Only (08/21/2025 6:02 PM EDT) Historical Provider IMG XR CHEST Final Res ult * Outside Imaging Report Only (08/21/2025 6:00 PM EDT) [facility] Provider IMG XR CHEST Final Res ult documented in this encounter Visit Diagnoses Not on filedocumented in this encounter Additional Health Concerns Assessment Noted Time PHQ-2 Depression Total Score: 0 12/16/19 25 1:14 PM EST documented as of this encounter Care Teams Bone Char Kiln Operator Relationship Specialty Start Date End Date Jewel Nuñez MD [address] [place] [address] [email or web address] PCP - General 08/30/17 Edgard Hallman MD [address] [place] [address] Dr [facility] [address] [place] [address] Ophthalmology 06/22/20 Mike Fontenot MD [address] [place] [address] [address] [place] [address] Cardiology 06/22/20 Nahomy Hurst MD [address] [place] [address] [email or web address] Hematology and Oncology 06/24/20 Jean Carlos Martínez MD [address] [place] [address] [address] [place] [address] Gastroenterology 12/23/20 documented as of this encounter Additional Source Comments The information contained in this document represents components of the legal health record. It is not the complete legal health record.[facility]
--- OUTSIDE RECORDS SUMMARY | 2025-08-25 12:48 | XMS_ITS | Patient Health Record ---
Author Organization [facility] Address [address] [place] [address] Care Team Providers Care Edge Trimming Machine Operator Name Role Phone Jewel Nuñez MD Primary Care Provider Jean Carlos Meadows Unavailable [phone] Freda Patel Unavailable Unavailable Allergies Allergen (clinical [...] MG 1 tablet Orally Onc e a day; Duration: 30 day(s) Active Vitamin D3 2000 UNIT 1 capsule Orally On a day; Duration: 30 day(s) Active Fluticasone Propionate 50 MCG/ACT SPRAY 2 SPRAYS BY NASAL ROUTE DAILY. Nasal; Duration: 90 Active Atorvastatin Calcium 40 MG TAKE 1 TABLET (20 MG TOTAL) BY MOUTH DAILY. Orally Once a day Active Omeprazole 20 MG TAKE 1 CAPSULE BY MO UT EVERY DAY; Duration: 90 Active Warfarin Sodium 5 MG as directed Orally Once a day Active Lisinopril 10 MG 1 tablet Orally Once a day Active Celecoxib 200 MG TAKE 1 CAPSULE BY MO UTH TWICE A DAY Oral; Duration: 90 Active Jardiance 25 MG TAKE 1 [...] Problem Status W/U Status Risk Notes Problem Screening for malignant neoplasm of colon (743728045) Encounter for screening for malignant neoplasm of colon (Z12.11) Active confirmed Problem History of adenomatous polyp of colon (877694895) History of adenomatous polyp of colon (Z86.010) Active confirmed Problem Mccormack's esophagus (288038486) 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) Active confirmed Problem Diverticular disease of colon (768345545) Diverticulosis of large intestine without perforation or abscess without bleeding (K57.30) Active confirmed Problem Gastroesophageal reflux disease (293771702) Gastroesophageal reflux disease (K21.9) Active confirmed Problem Gastroesophageal reflux disease without esophagitis (517721322) Gastroesophageal reflux disease without esophagitis (K21.9) Active confirmed Problem Tubular adenoma of colon (452935028) Tubular adenoma of colon (D12.6) Active confirmed Problem Gastroesophageal reflux disease (813903822) Gastroesophageal reflux disease, esophagitis presence not specified (K21.9) Active confirmed Problem Gastritis (7052576) Gastritis (K29.70) Active c onfirmed Problem Mccormack esophagus (036105575) 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 Plan Of Treatment Future Test Test Name Order Date COLONOSCOPY 11/27/2012 UPPER GI ENDOSCOPY 09/02/2019 COLONOSCOPY 09/02/2019 COLONOSCOPY 03/30/2020 UPPER GI ENDOSCOPY 07/19/2023 COLONOSCOPY 07/19/2023 Insurance Providers Payer Name Payer Address Payer Phone Subscriber Number Group Number Insured Name Patient Relationship to Insured Coverage Start Date Coverage End Date [facility] [address] [place] [address] [id number] TIBURCIO MARCANO Self - patient is the insured Medical (General) History Medical History History ICD Code HTN Denies AR,CVA,Lung disease,renal disease Polycythemia vera since 2010-gets a [...]
--- OUTSIDE RECORDS SUMMARY | 2025-08-25 12:50 | XMS_ITS | Encounter Summary ---
Author Organization [facility] Address [address] [facility] [address] [place] [address] Phone Care Team Providers Care Director Of Vendor Management Name Role Phone Jewel Nuñez MD Primary Care Provider [phone] Edgard Hallman MD Unavailable [phone] Mike Fontenot MD Unavailable [phone] Nahomy Hurst MD Unavailable [phone] Jean Carlos Martínez MD Unavailable [phone] Encounter Details Date Type Department Care Team (Late st Contact Info) Description 08/17/2025 Orders Only [facility] [address] [place] [address] Provider, MD Thanh [address] [place] [address] Social History Tobacco Use Types [...] Description 09/23/2025 2:00 PM EST Office Visit [facility] [address] [place] [address] Jewel Nuñez MD [address] [place], [place] [email or web address] 2025 2:00 PM EST Office Visit [facility] [address] [place] [address] Viki Thompson MD 22 [facility], 1st [place] [address] [email or web address] documented as of this encounter Procedures Procedure Name Priority Date/Time Associated Diagnosis Comments OUTSIDE XR EXTREMITY LOWER REPORT ONLY Routine 08/13/2025 12:00 PM EDT OUTSIDE XR EXTREMITY LOWER REPORT ONLY Routine 08/13/2025 11:10 AM EDT documented in this encounter Results * Outside XR Extremity Lower Report Only (08/13/2025 12:00 PM EDT) Historical Provider MD PEREIRA XR LOWER EXTREMITY Fi nal Result * Outside XR Extremity Lower Report Only (08/13/2025 11:10 AM EDT) [facility] Provider MD PEREIRA XR LOWER EXTREMITY Fi nal Result documented in this encounter Visit Diagnoses Not on filedocumented in this encounter Additional Health Concerns Assessment Noted Time PHQ-2 Depression Total Score: 0 12/16/19 25 1:14 PM EST documented as of this encounter Care Teams Director Of Vendor Management Relationship Specialty Start Date End Date Jewel Nuñez MD [address] [place] [address] [email or web address] PCP - General 08/30/17 Edgard Hallman MD [address] [place] [address] [place] [address] Ophthalmology 06/22/20 Mike Fontenot MD [address] [place] [address] Dr [address] [place] [address] Cardiology 06/22/20 Nahomy Hurst MD [address] [place] [address] [email or web address] 06/24/20 Jean Carlos Martínez MD [address] [place] [address] Drive [address] [place] [address] Gastroenterology 12/23/20 documented as of this encounter Additional Source Comments The information contained in this document represents components of the legal health record. It is not the complete legal health record.[facility]
--- OUTSIDE RECORDS SUMMARY | 2025-08-25 12:50 | XMS_ITS | Encounter Summary ---
Author Organization [facility] Address [address] [place] [address] Phone Care Team Providers Care Enterprise Integration Developer Name Role Phone Jewel Nuñez MD Primary Care Provider Edgard Hallman MD Unavailable Mike Fontenot MD Unavailable [phone] Nahomy Hurst MD Unavailable [phone] Jean Carlos Martínez MD Unavailable [phone] Encounter Details Date Type Department Care Team (Late st Contact Info) Description 08/03/2025 Orders Only [facility] Internal Medicine [address] [place] [address] Provider, MD Thanh [address] [place] [address] Social History Tobacco Use Types [...] Description 09/23/2025 2:00 PM EST Office Visit [facility] [address] [place] [address] Jewel Nuñez MD [address] [place], [place] [phone] [email or web address] 2025 2:00 PM EST Office Visit [facility] [address] [place] [address] Viki Thompson MD 22 [facility], 1st [place] [address] [email or web address] documented as of [...] documented as of this encounter Care Teams Enterprise Integration Developer Relationship Specialty Start Date End Date Jewel Nuñez MD [address] [place], [place] [phone] PCP - General 08/30/17 Edgard Hallman MD [address] [place] [address] [place] [id number] Ophthalmology 06/22/20 Mike Fontenot MD [address] [place] [address] [place] [address] Cardiology 06/22/20 Nahomy Hurst MD [address] [place] [address] [email or web address] 06/24/20 Jean Carlos Martínez MD [address] [place] [address] [place] [address] Gastroenterology 12/23/20 documented as of this encounter Additional Source Comments The information contained in this document represents components of the legal health record. It is not the complete legal health record.[facility]
--- OUTSIDE RECORDS SUMMARY | 2025-08-25 12:50 | XMS_ITS | Clinical Summary ---
Author Organization [facility] Address [address] [place] [address] Care Team Providers Care Mobile Home Set Up Person Name Role Phone Unavailable Primary Care Provider [...] Procedure Name Priority Date/Time Associated Diagnosis Comments [facility] SCREENING DIGITAL Routine 09/03/2022 8:59 AM EDT Encounter for screening mammogram for malignant neoplasm of breast [facility] DEXA AXIAL SKELETON Routine 12/20/2020 3:43 PM EST Encounter for screening for osteoporosis from Last 3 Months or Most Recently Relevant to Health Maintenance Results * [facility] SCREENING DIGITAL (09/03/2022 8:59 AM EDT) Anatomical Region Laterality Modality Mammography 08/31/2022 10:1 7 AM EDT Narrative 09/03/2022 8:59 AM EDT [facility] Diagnostic Imaging Department [address] [place] [address] Patient: TAVOSarbjitTIBURCIO /Age/Sex: 1960 - 61 - F Unit#: [id number] Location/Status: SPDIMAM/PRE CLI Mnemonic/Ordering Site: [facility] Ordering Physician: JEWEL NUÑEZ MD [facility] Screening Digital - 09/02/22 - 1004 EXAM: [facility] Screening Digital EXAM DATE AND TIME: 09/02/2022 10:04 AM HISTORY: Annual screening mammography. Limited mobility of the right shoulder due to injury. COMPARISON: 09/25/2020 through 12/31/2015. TECHNIQUE: CC and MLO views of both breasts were obtained using full field digital mammography. Bilateral digital breast tomosynthesis was performed in the MLO projection. 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 TISSUE DENSITY: a. The breasts [...] Routine screening mammogram BILATERAL in 1 year. 21083, 13431 3342F, 7025F Dictating Physician: AMARILIS PRESTON MD Electronically Signed by: AMARILIS PRESTON MD Dic Date/Time: 09/03/2256 Sign date/Time: 09/03/2259 Procedure Note Lisa Preston MD - 11/01/2022 [facility] Diagnostic Imaging Department [address] [place] [address] Patient: TAVOSarbjitTIBURCIO/Age/Sex: 1960 - 61 - F Unit#: [id number] Location/Status: SPDIMAM/PRE CLI Mnemonic/Ordering Site: [facility] Ordering Physician: JEWEL NUÑEZ MD [facility] Screening Digital - 09/02/22 - 1004 EXAM: [facility] Screening Digital EXAM DATE AND TIME: 09/02/2022 10:04 AM HISTORY: Annual screening mammography. Limited mobility of the rightshoulder due to injury. COMPARISON: 09/25/2020 through 12/31/2015. TECHNIQUE: CC and MLO views of both breasts were obtained using fullfield digital mammography. Bilateral digital breast tomosynthesis was performedin the MLO projection. 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 TISSUE DENSITY: a. The breasts are [...] Routine screening mammogram BILATERAL in 1 year. 01643, 73232 3342F, 7025F Dictating Physician: AMARILIS PRESTON MD Electronically Signed by: AMARILIS PRESTON MD Dic Date/Time: 09/03/2256 Sign date/Time: 09/03/2259 Jewel Nuñez MD IMG BI PROCEDURES Final Result * [facility] DEXA AXIAL SKELETON (12/20/2020 3:43 PM EST) Anatomical Region Laterality Modality Mammography 12/20/2020 2:40 PM EST Narrative 12/20/2020 3:43 PM EST [facility] Diagnostic Imaging Department [address] [place] [address] Patient: TIBURCIO ZELAYA Malorie Staton/Age/Sex: 1960 - 60 - F Unit#: [id number] Location/Status: SPDIMA/REG CLI Mnemonic/Ordering Site: [facility]/SPMAM Ordering Physician: ENEIDA PAYAN ONCOLOGY TECHNICIAN Rangel Dexa Axial Skeleton - 12/20/20 [...] probability of hip fracture of 0.7%. Code 25224 Dictating Physician: TERRIE MARIA MD Electronically Signed by: TERRIE MARIA MD Dic Date/Time: 12/20/201541 Sign date/Time: 02/08/21 1543 Procedure Note Terrie Maria MD - 10/31/2022 [facility] Diagnostic Imaging Department [address] [place] [id number] Patient: KRYSTIBURCIOJOANNE Siddiqui./Age/Sex: 1960 - 60 - F Unit#: [id number] Location/Status: [facility] CLI Mnemonic[facility] Ordering Physician: ENEIDA PAYAN ONCOLOGY TECHNICIAN Rangel Dexa Axial Skeleton - 12/20/201531 [...] density of the femurs bilaterally is 0.972 gm/sq4pcaki is 96% of that of young normals [...] probability of hip fracture of 0.7%. Code 00858 Dictating Physician: TERRIE MARIA MD Electronically Signed by: TERRIE MARIA MD Dic Date/Time: 12/20/20 1542 Sign date/Time: 12/20/20 1543 Eneida Payan NP IM BI PROCEDURES Final Resul t from Last 3 Months or Most Recently Relevant to Health Maintenance
--- OUTSIDE RECORDS SUMMARY | 2025-09-26 20:00 | XMS_ITS | Clinical Summary ---
Author Organization Unknown Care Team Providers Care Mattress Spring Encaser Name Role Phone JUSTICE GONZALEZ, ASAD Unavailable Unavailable MIGUEL VIVEROS, CHANTELLE Unavailable Unavailable Payers Payer Name Policy Type Policy Number Effective Date Expira tion Date MEDICARE - N[place] [id number] Problems Condition Name Condition Details Condition Category Status Onset Date Resolution Date Last Treatment Date Treating Clinician Comments ENCOUNTER FOR ORTHOPEDIC AFTERCARE FOLLOWING SURGICAL AMP Active 07-30 00:00: 00 ACQUIRED ABSENCE OF OTHER RIGHT TOE(S) Active 07-30 00:00: 00 TYPE 2 DIABETES MELLITUS WITH DIABETIC NEUROPATHY, UNSP Active 11-12 00:00: 00 TYPE 2 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 Active 11-12 00:00: 00 ANXIETY DISORDER, UNSPECIFIED Active 11-12 00:00: 00 DEPRESSION, UNSPECIFIED Active 11-12 00:00: 00 OTHER CHRONIC PAIN Active 11-12 00:00: 00 PURE HYPERCHOLEST EROLEMIA, UNSPECIFIED Active 11-12 00:00: 00 ATHSCL HEART DISEASE OF [place] CORONARY ARTERY W/O ANG PCTRS Active 11-12 00:00: 00 ESSENTIAL (PRIMARY) HYPERTENSION Active 11-12 00:00: 00 LEFT BUNDLE-BRANC H BLOCK, UNSPECIFIED Active 11-12 00:00: 00 PRIMARY GENERALIZED (OSTEO)ARTHR ITIS Active 11-12 00:00: 00 GASTRO-ESOPH AGEAL REFLUX DISEASE WITHOUT ESOPHAGITIS Active 11-12 00:00: 00 SECONDARY POLYCYTHEMIA Active 11-12 00:00: 00 Obesity, class 1 Active 11-12 00:00: 00 BODY MASS INDEX [BMI] 31.0-31.9, ADULT Active 11-12 00:00: 00 PERSONAL HISTORY OF NICOTINE DEPENDENCE Active 11-12 00:00: 00 OTHER JAIL (CURRENT) DRUG THERAPY Active 11-12 00:00: 00 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 Active 11-12 00:00: 00 LNG TRM (CRNT) USE INJECTABLE NON-INSULIN ANTIDIABETIC DRUGS Active 11-12 00:00: 00 PERSONAL HISTORY OF OTHER VENOUS THROMBOSIS AND EMBOLISM Active 11-12 00:00: 00 Personal history of colon polyps, unspecified Active 11-12 00:00: 00 ACQUIRED ABSENCE OF BOTH CERVIX AND UTERUS Active 11-12 00:00: 00 ACQUIRED ABSENCE OF OTHER SPECIFIED PARTS OF DIGESTIVE TRACT Active 11-12 00:00: 00 ACQUIRED ABSENCE OF OTHER ORGANS Active 11-12 00:00: 00 Allergies, Adverse Reactions, [...] 50 mg tablet 07-29 00:00: 00 Yes [id number] 1 tablet EVERY 8 HOURS 1 tablet EVERY 8 HOURS (route: oral) Med Classific ation: Analgesic , Anti-infl ammatory or Antipyret ic Mounjaro 7.5 mg/0.5 mL subcutaneou s pen injector 07-19 00:00: 00 Yes [id number] Per instruc tions ONCE A WEEK Per instructio ns ONCE A WEEK (route: subcutaneo us) Med Classific ation: Endocrine omeprazole 20 mg capsule,del ayed release 07-11 00:00: 00 Yes [id number] Per instruc tions EVERY DAY Per instructio ns EVERY DAY (route: oral) Med Classific ation: Gastroint estinal Therapy Agents celecoxib 200 mg capsule 07-06 00:00: 00 Yes [id number] Per instruc tions TWICE A DAY Per instructio ns TWICE A DAY (route: oral) Med Classific ation: Analgesic , Anti-infl ammatory or Antipyret ic atorvastati n 40 mg tablet 07-30 00:00: 00 08-08 23:59 :00 No [id number] 1 tablet BEDTIME 1 tablet BEDTIME (route: oral) Med Classific ation: Cardiovas cular Therapy Agents Colace 100 mg capsule 07-30 00:00: 00 Yes [id number] 1 capsule 2 TIMES DAILY 1 capsule 2 TIMES DAILY (route: oral) Med Classific ation: Gastroint estinal Therapy Agents Flonase Allergy Relief 50 mcg/actuati on nasal spray,suspe nsion 07-30 00:00: 00 Yes [id number] 1 spray DAILY 1 spray DAILY (route: nasal) Med Classific ation: Respirato ry Therapy Agents Jardiance 25 mg tablet 07-30 00:00: 00 Yes [id number] 1 tablet DAILY 1 tablet DAILY (route: oral) Med Classific ation: Endocrine lisinopril 5 mg tablet 07-30 00:00: 00 Yes [id number] 1 tablet DAILY 1 tablet DAILY (route: oral) Med Classific ation: Cardiovas cular Therapy Agents loratadine 10 mg tablet 07-30 00:00: 00 Yes [id number] 1 tablet DAILY 1 tablet DAILY (route: oral) Med Classific ation: Respirato ry Therapy Agents Tylenol Extra Strength 500 mg tablet 07-30 00:00: 00 08-08 23:59 :00 No [id number] 2 tablet 4 TIMES DAILY 2 tablet 4 TIMES DAILY (route: oral) Med Classific ation: Analgesic , Anti-infl ammatory or Antipyret ic Vitamin D3 50 mcg (2,000 unit) tablet 07-30 00:00: 00 Yes [id number] 1 tablet DAILY 1 tablet DAILY (route: oral) Med Classific ation: Electroly te Balance-N utritiona l Products warfarin 7.5 mg tablet 07-31 00:00: 00 08-02 23:59 :00 No [id number] 1 tablet DAILY 1 tablet DAILY (route: oral) Med Classific ation: Hematolog ical Agents Admelog SoloStar U-100 Insulin lispro 100 unit/mL subcutaneou s pen 08-08 00:00: 00 Yes [id number] Per instruc tions DIRECTED Per instructio ns DIRECTED (route: subcutaneo us) Med Classific ation: Endocrine daptomycin 500 mg intravenous solution 08-08 00:00: 00 09-14 23:59 :00 No [id number] 750 mg DAILY 750 mg DAILY (route: intravenou s) Med Classific ation: Anti-Infe ctive Agents heparin (porcine) (PF) 10 unit/mL in 0.9 % sodium chloride IV syringe 08-08 00:00: 00 09-14 23:59 :00 No [id number] Per instruc tions DIRECTED Per instructio ns DIRECTED (route: intravenou s) Med Classific ation: Hematolog ical Agents Normal Saline Flush 0.9 % injection syringe 08-08 00:00: 00 09-14 23:59 :00 No [id number] Per instruc tions DIRECTED Per instructio ns DIRECTED (route: injection) Med Classific ation: Electroly te Balance-N utritiona l Products Percocet 2.5 mg-325 mg tablet 08-08 00:00: 00 Yes [id number] 1 tablet EVERY 8 HOURS 1 tablet EVERY 8 HOURS (route: oral) Med Classific ation: Analgesic , Anti-infl ammatory or Antipyret ic warfarin 5 mg tablet 08-08 00:00: 00 Yes [id number] Per instruc tions DIRECTED Per instructio ns DIRECTED (route: oral) Med Classific ation: Hematolog ical Agents Vital Signs Vital Name Observation Time Observation Value Commen ts Temperature 2025-08-24 12:22:00.000 96.7 [degF] Temperature 2025-08-21 13:17:00.000 97.5 [degF] Temperature 2025-08-19 11:10:00.000 97.9 [degF] Temperature 2025-08-18 10:45:00.000 98.3 [degF] Temperature 2025-08-17 12:02:00.000 98.2 [degF] Temperature 2025-08-14 10:58:00.000 97.8 [degF] Temperature 2025-08-12 11:28:00.000 97.8 [degF] Temperature 2025-08-10 12:44:00.000 98.7 [degF] Temperature 2025-08-08 12:45:00.000 98.1 [degF] Temperature 2025-08-03 13:00:00.000 98.7 [degF] Temperature 2025-07-30 11:56:00.000 98.8 [degF] BMI (%) 2025-07-30 11:56:00.000 32 kg/m2 Height 2025-08-08 12:45:00.000 68 [in_us] Height 2025-07-30 11:56:00.000 68 [in_us] Pulse 2025-08-24 12:22:00.000 96 /min Pulse 2025-08-21 13:17:00.000 80 /min Pulse 2025-08-19 11:10:00.000 93 /min Pulse 2025-08-18 10:45:00.000 68 /min Pulse 2025-08-17 12:02:00.000 95 /min Pulse 2025-08-14 10:58:00.000 90 /min Pulse 2025-08-12 11:28:00.000 85 /min Pulse 2025-08-10 12:44:00.000 96 /min Pulse 2025-08-08 12:45:00.000 65 /min Pulse 2025-08-03 13:00:00.000 112 /min Pulse 2025-07-30 11:56:00.000 92 /min O2 Saturation (%) 2025-08-24 12:22:00.000 96 % O2 Saturation (%) 2025-08-21 13:17:00.000 98 % O2 Saturation (%) 2025-08-19 11:10:00.000 96 % O2 Saturation (%) 2025-08-18 10:45:00.000 95 % O2 Saturation (%) 2025-08-17 12:02:00.000 98 % O2 Saturation (%) 2025-08-14 10:58:00.000 98 % O2 Saturation (%) 2025-08-12 11:28:00.000 98 % O2 Saturation (%) 2025-08-10 12:44:00.000 100 % O2 Saturation (%) 2025-08-08 12:45:00.000 100 % Respirations 2025-08-24 12:22:00.000 18 /min Respirations 2025-08-21 13:17:00.000 18 /min Respirations 2025-08-19 11:10:00.000 16 /min Respirations 2025-08-18 10:45:00.000 16 /min Respirations 2025-08-17 12:02:00.000 16 /min Respirations 2025-08-14 10:58:00.000 18 /min Respirations 2025-08-12 11:28:00.000 18 /min Respirations 2025-08-10 12:44:00.000 18 /min Respirations 2025-08-08 12:45:00.000 18 /min Respirations 2025-08-03 13:00:00.000 18 /min Respirations 2025-07-30 11:56:00.000 20 /min Weight (lbs) 2025-08-08 12:45:00.000 Weight (lbs) 2025-07-30 11:56:00.000 215 [lb_av] Systolic Blood Pressure 2025-08-24 12:22:00.000 124 mm [Hg] Systolic Blood Pressure 2025-08-21 13:17:00.000 110 mm [Hg] Systolic Blood Pressure 2025-08-19 11:10:00.000 115 mm [Hg] Systolic Blood Pressure 2025-08-18 10:45:00.000 128 mm [Hg] Systolic Blood Pressure 2025-08-17 12:02:00.000 122 mm [Hg] Systolic Blood Pressure 2025-08-14 10:58:00.000 110 mm [Hg] Systolic Blood Pressure 2025-08-12 11:28:00.000 110 mm [Hg] Systolic Blood Pressure 2025-08-10 12:44:00.000 110 mm [Hg] Systolic Blood Pressure 2025-08-08 12:45:00.000 102 mm [Hg] Systolic Blood Pressure 2025-08-03 13:00:00.000 100 mm [Hg] Systolic Blood Pressure 2025-07-30 11:56:00.000 112 mm [Hg] Diastolic Blood Pressure 2025-08-24 12:22:00.000 80 mm [Hg] Diastolic Blood Pressure 2025-08-21 13:17:00.000 61 mm [Hg] Diastolic Blood Pressure 2025-08-19 11:10:00.000 60 mm [Hg] Diastolic Blood Pressure 2025-08-18 10:45:00.000 74 mm [Hg] Diastolic Blood Pressure 2025-08-17 12:02:00.000 70 mm [Hg] Diastolic Blood Pressure 2025-08-14 10:58:00.000 72 mm [Hg] Diastolic Blood Pressure 2025-08-12 11:28:00.000 68 mm [Hg] Diastolic Blood Pressure 2025-08-10 12:44:00.000 [...] MAINTAIN SITUATIONAL AWARENESS AND WILL NOTIFY CLINICAL CIGAR BRANDER AND PHYSICIAN/PROVIDER WITH ANY CHANGE IN CONDITION. [code = SKILLED NURSE TO PERFORM ENVIRONMENTAL SAFETY RISK ASSESSMENT AND FALL RISK ASSESSMENT AND PROVIDE INSTRUCTION TO IMPLEMENT ENVIRONMENTAL SAFETY AND FALL PREVENTION STRATEGIES THROUGHOUT THE CERTIFICATION PERIOD. SKILLED NURSE WILL MAINTAIN SITUATIONAL AWARENESS AND WILL NOTIFY CLINICAL CIGAR BRANDER AND PHYSICIAN/PROVIDER WITH ANY CHANGE IN CONDITION.] [...] CARE WILL BE ESTABLISHED THAT MEETS PATIENT'S SENIOR LIVING NEEDS AND INCLUDES PATIENT GOAL FOR HOME [...] Notes <paragraph>[Visit Date: 2024 by CHANTELLE RIVERA RN]:</paragraph><paragraph>SNV 08/24/25</paragraph><paragraph></paragraph><paragraph>ABNORMAL VITALS: VSS WITHIN SET PARAMETERS </paragraph><paragraph></paragraph><paragraph>FALLS: DENIES FALLS SINCE LAST VISIT.</paragraph><paragraph></paragraph><paragraph>ABNORMAL PHYSICAL ASSESSMENT FINDINGS: NO CHANGES SINCE LAST SNV </paragraph><paragraph></paragraph><paragraph>MEDICATION CHANGES: NO MED CHANGES </paragraph><paragraph></paragraph><paragraph>OBSERVATION AND ASSESSMENT PROVIDED:</paragraph><paragraph>A&OX3, LSCTA, RRR, FATIGUES EASILY, DENIES PAIN DURING VISIT, REPORTS PAIN AT TIMES ON AMPUTATION SITE. DENIES GI OR ISSUES, LBM TODAY. </paragraph><paragraph>RUE PICC LINE DRESSING DCI, ARM CIRCUMFERENCE 37 CM. PATIENT DENIES ANY ISSUES WITH ANTIBIOTIC ADMINISTRATION. </paragraph><paragraph>WOUND CARE PROVIDED ORDERED, PATIENT PERFORMS WOUND CARE TO AMPUTATION SITE DAILY ON NON-NURSING DAYS. ALL WOUNDS WITH MINIMAL IMPROVEMENT. AMPUTATION SITE CONTINUES TO HAVE ODOR, PATIENT HAS JILL WITH WOUND CLINIC AND SURGEON TOMORROW. </paragraph><paragraph></paragraph><paragraph>EDUCATION: EDUCATED ON PAIN MANAGEMENT, STAYING AHEAD OF PAIN, TAKING PRN PAIN MEDICATIONS, ELEVATING BLE. EDUCATED ON PRESSURE ULCER PREVENTION, FREQUENT REPOSITION AT LEAST EVERY 2HRS TO OFFLOAD PRESSURE FROM BONY PROMINENCES AND WOUNDS. REINFORCED EDUCATION ON ADEQUATE PROTEIN INTAKE AND HYDRATION TO PROMOTE WOUND HEALING. VERBALIZED UNDERSTANDING, NEEDS REINFORCEMENT AT NEXT VISIT. </paragraph><paragraph></paragraph><paragraph>INTERVENTIONS NEEDED AT NEXT VISIT: INTEGUMENTARY ASSESSMENT, WOUND CARE TO BILATERAL FEET.</paragraph><paragraph></paragraph><paragraph>COMMUNICATION WITH MD: NOT NEEDED AT THIS TIME</paragraph><paragraph></paragraph><paragraph>NEXT MD APPOINTMENT:</paragraph><paragraph>INFECTIOUS DISEASE 08/26</paragraph><paragraph>VASCULAR AND WOUND CLINIC 08/25</paragraph><paragraph></paragraph><paragraph>PT AND CAREGIVER INSTRUCTED TO CALL [facility] WITH ANY QUESTIONS OR CONCERNS AND/OR CHANGES IN CONDITION, STATE UNDERSTANDING</paragraph> Encounters Start Date/Time End Date/Time Encounter Type Admission Type Attending [facility] Care Facility Care Department Encounter ID Discharge Date Discharge Status Discharge Condition Discharge Reason Percent Goals Met 2025-07-30 00:00:00 2025-09-27 00:00:00 Outpatient NEW ADMISSION CHANTELLE RIVERA [facility] [id number]
== END 2025-08-25 11:41 | disposition home or self-care (01) ==
LOC: HO.HVS 10:46
PROVIDERS: PCP Internal Medicine; Visit Provider Surgery Vascular Surgery
DX: T87.43 Infection of amputation stump, right lower extremity (principal); Z89.421 Acquired absence of other right toe(s); I73.9 Peripheral vascular disease, unspecified
CPT/HCPCS: 99024

== ENCOUNTER → 2025-08-25 10:46 | Outpatient (BNVA) | payer MEDICARE, OTHER, SELFPAY | PROVIDERS: PCP Internal Medicine; Visit Provider Surgery Vascular Surgery | DX: T81.49XD Infection following a procedure, other surgical site, subsequent encounter (principal); I73.9 Peripheral vascular disease, unspecified | CPT/HCPCS: 99212 ==

== ENCOUNTER → 2025-08-26 09:54 | Outpatient (BNVA) | payer MEDICARE, OTHER, SELFPAY | PROVIDERS: PCP Internal Medicine; Visit Provider Internal Medicine Medical Oncology | DX: T87.43 Infection of amputation stump, right lower extremity (principal); L03.115 Cellulitis of right lower limb; M86.9 Osteomyelitis, unspecified; Z89.421 Acquired absence of other right toe(s) | CPT/HCPCS: 99212 ==

== ENCOUNTER 2025-08-26 12:51 | Outpatient (AMB) | payer MEDICARE, OTHER, SELFPAY ==
[2025-08-26 13:24] VITALS: BP 126/72; PULSE 96; O2SAT 100; BMI 31.5
--- NOTE | 2025-08-26 13:24 | MHC.OFFVIS ---
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/infection Allergies droperidol (From INAPSINE) Allergy (Severe, Verified 08/26/25 13:26) Anaphylaxis egg (EGG) Allergy (Severe, Verified 08/26/25 13:26) Nausea and Vomiting latex (LATEX) Allergy (Severe, Verified 08/26/25 13:26) HIVES metformin (METFORMIN) Allergy (Severe, Verified 08/26/25 13:26) DIZZINESS AND NAUSEA penicillin V Allergy (Severe, Verified 08/26/25 13:26) RASH codeine (CODEINE) Allergy (Intermediate, Verified 08/26/25 13:26) Rash Hydrocodone Bitartrate Allergy (Intermediate, Uncoded 08/26/25 13:) Rash HPI HPI OUTSOLE BEVELER Hmc reff/picc line/infection: Details: History of Present Illness The patient is a 64-year-old female presenting with persistent infection issues following a surgical intervention for foot osteomyelitis. The patient underwent an amputation of the second digit at the right foot MTP level due to osteomyelitis on 08/13. Post-surgery, the patient reported erythema extending from the area and persistent drainage. Despite seeing Dr. Adams and Dr. Del Cid at the wound clinic, these symptoms have persisted. Review of Systems - Constitutional: Denies fever. - Skin: Reports drainage through the surgical site. - Respiratory: Denies respiratory symptoms. - Cardiovascular: Denies chest pain. - Gastrointestinal: Denies abdominal symptoms. - Neurological: Denies neurological symptoms. Physical Exam - Vital Signs- Stable. - Oropharynx- Clear. - Respiratory- Lungs clear. - Cardiovascular- Heart regular rate and rhythm. - Abdominal- Soft, non-tender. - Extremities- Not tender. - Neurological- Non-focal. - Skin- Clear except for some drainage at the right foot amputation site. Results - Imaging: X-ray on 08/13 showed amputation of the second digit at the right foot MTP level. Plan Patient was informed and verbally consented to the use of an ambient scribe for clinic note documentation during this visit. 1. Osteomyelitis, unspecified M86.9 HCC 39 The continuation of antibiotics until September 15 is crucial to manage the remaining infection. Monitoring for any progression of symptoms or further complications is advised, with follow-up scheduled. 2. Post-Amputation Erythema And Drainage Continued observation and antibiotic therapy are planned, with a follow-up scheduled within a month. Discussion Notes The ongoing management of foot infection and post-amputation complications was discussed with the patient. I explained the necessity of completing the antibiotic regimen and the potential scenarios should symptoms persist. I advised the patient about the importance of monitoring for any worsening symptoms and the benefits of follow-up consultations. Consent for continued management with the current treatment plan was obtained. Medical Decision Making The patient's condition is being managed with antibiotic therapy to address foot osteomyelitis and secondary concerns post-amputation. The current regimen continues until September 15 to ensure adequate treatment and healing. Scheduled follow-ups will help assess the efficacy of the treatment and address potential complications promptly. Patient Instructions - Finish all prescribed antibiotics by September 15. - Observe for any increase in redness, warmth, or drainage in the affected foot. - Keep the foot clean and dry and follow the wound care instructions provided. - Return for a follow-up appointment in one month or sooner if symptoms worsen. [facility], [facility] Medical History (Updated 08/25/25 @ 12:53 by Hermann Adams MD) PAD (peripheral artery disease) Cellulitis LBBB (left bundle branch block) Hx of drainage of abscess DVT (deep venous thrombosis) Arthritis Low back pain Diabetes Elevated cholesterol Colon polyps Mccormack esophagus Bronchial asthma HTN (hypertension) Polycythemia Current use of anticoagulant therapy Surgical History S/P aortogram History of esophagogastroduodenoscopy (EGD) Previous back surgery Hx of colonoscopy History of hysterectomy History of delivery History of appendectomy History of cholecystectomy Family History Father Heart disease Afib Heart attack Maternal Grandmother Lung cancer Maternal Grandfather Prostate CA Paternal Grandmother Heart attack Paternal Grandfather Heart attack Social History Household Members: Spouse Housing: Apartment Are you a primary daycare provider to a significant other at home: No Do you presently have visiting nurse or other home services: Yes (vna) Alcohol intake: former Comment: pt rings appropriately for assistance to bathroom Patient Tobacco Use Status: Former Tobacco user Tobacco use type: Cigarette Cigarette Packs Per Day: 1 Years Smoked: 25 Substance Use Type: Marijuana Advance Directives Date on File: 07/27/25 service: No Current occupational status: retired Physical Exam Exam Exam: Vital Signs: Last Vital Signs Pulse 96 08/26/25 13:24 BP 126/72 08/26/25 13:24 Pulse Ox 100 08/26/25 13:24 BMI result Body Mass Index 31.5 Results AMB INR Fingerstick AMB INR Fingerstick 1.9 Last Edit by Rebecca Crook RN on 08/26/25 10:03 Assessment & Plan Assessment & Plan (1) Cellulitis: Code(s): L03.90 - Cellulitis, unspecified Category: Medical Plan: na Coding Level of Care Code Est Pt Level 3 (96322) Diagnoses Cellulitis L03.90
== END 2025-08-26 13:51 | disposition home or self-care (01) ==
LOC: HO.HID 12:51
PROVIDERS: PCP Internal Medicine; Visit Provider Internal Medicine
DX: L03.90 Cellulitis, unspecified (principal)
CPT/HCPCS: 99213

== ENCOUNTER → 2025-09-09 11:32 | Outpatient (BNVA) | payer MEDICARE, OTHER, SELFPAY | PROVIDERS: PCP Internal Medicine; Visit Provider Internal Medicine Medical Oncology | DX: T81.49XA Infection following a procedure, other surgical site, initial encounter (principal); E11.59 Type 2 diabetes mellitus with other circulatory complications; I73.9 Peripheral vascular disease, unspecified; I82.503 Chronic embolism and thrombosis of unspecified deep veins of lower extremity, bilateral; Z51.81 Encounter for therapeutic drug level monitoring; Z79.01 Long term (current) use of anticoagulants | CPT/HCPCS: 99212 ==

== ENCOUNTER 2025-09-09 15:16 | Outpatient (AMB) | payer MEDICARE, OTHER, SELFPAY ==
[2025-09-09 16:08] VITALS: BP 138/70; PULSE 98; O2SAT 96
--- NOTE | 2025-09-09 16:08 | A.OFFVIS_ITS ---
Vital Signs 3 09/09/25 16:08 BP 138/70 Pulse 98 Pulse Oximetry (%) 96 Intake Visit Reasons: 3 WK F/U Allergies droperidol (From INAPSINE) Allergy (Severe, Verified 09/09/25 16:09) Anaphylaxis egg (EGG) Allergy (Severe, Verified 09/09/25 16:09) Nausea and Vomiting latex (LATEX) Allergy (Severe, Verified 09/09/25 16:09) HIVES metformin (METFORMIN) Allergy (Severe, Verified 09/09/25 16:09) DIZZINESS AND NAUSEA penicillin V Allergy (Severe, Verified 09/09/25 16:09) RASH codeine (CODEINE) Allergy (Intermediate, Verified 09/09/25 16:09) Rash Hydrocodone Bitartrate Allergy (Intermediate, Uncoded 09/09/25 16:09) Rash HPI Comments Details: History of Present Illness The patient is a 64-year-old female presenting with a right second toe infection. The patient received Daptomycin during a hospital stay, completing this treatment course on September 14. Improvement in the infection has been observed. Her history includes the removal of the right second toe due to osteomyelitis, which was initially treated with a course of Daptomycin. Subsequent improvement suggests a positive response to therapy, with plans to continue treatment using oral Levofloxacin. Follow-up will be according to her clinical needs. Review of Systems - General: Reports stable vital signs. - Respiratory: Reports clear lungs. - Cardiovascular: Denies any abnormalities; heart rhythm described as straight. - Gastrointestinal: Denies abdominal tenderness. - Extremities: Reports status post toe removal (right foot, second digit). Physical Exam - Vitals- Vital status stable. - Oropharynx- Clear. - Lungs- Clear. - Cardiovascular- Heart rhythm straight. - Abdomen- Soft and nontender. - Extremities- Status post removal of right second toe. Results - Microbiology: Serratia marcescens identified, sensitive to Levaquin. Plan Patient was informed and verbally consented to the use of an ambient scribe for clinic note documentation during this visit. 1. Other specified bacterial diseases A48.8 The infection was identified as Serratia marcescens, sensitive to Levofloxacin. Post-Daptomycin treatment showed improvement. Initiating Levofloxacin 750 mg orally daily for 14 days is planned. Patient is advised to monitor for side effects, with follow-up as required. 2. Osteomyelitis, unspecified M86.9 HCC 39 Suspected osteomyelitis addressed with completed Daptomycin course exhibiting improvements. Continuation with Levofloxacin is strategized based on this response and susceptibility profile. Follow-up remains around symptomatic changes. Discussion Notes I discussed the patient's diagnosis of a Serratia marcescens infection sensitive to Levofloxacin. I explained the rationale for transitioning to oral Levofloxacin following the completion of Daptomycin, highlighting its specificity for the identified bacterium and the potential for fewer hospital- associated risks. We reviewed the course length, dose, and potential side effects, emphasizing the importance of timely follow-up should symptoms persist or worsen. We also discussed return precautions and the importance of adherence to the medication regimen. Medical Decision Making The decision to adjust treatment to oral Levofloxacin follows the identification of Serratia marcescens, with sensitivity confirmed. The initial use of Daptomycin during hospitalization addressed osteomyelitis concerns, which showed resolution in severity, directing focus towards oral continuation. Absence of complex clinical indicators discourages additional investigatory procedures at this time. The primary goal is infection resolution, reducing any remaining bacterial presence with minimal risk exposure. Patient Instructions - Take Levofloxacin 750 mg once daily for 14 days. - Monitor for symptoms such as fever, worsening infection, or side effects like stomach upset. - Return to clinic if symptoms do not improve or worsen. - Complete the full course of antibiotics even if feeling better. - Report any new or concerning symptoms promptly. [facility] Medical History (Updated 08/25/25 @ 12:53 by Hermann Adams MD) PAD (peripheral artery disease) Cellulitis LBBB (left bundle branch block) Hx of drainage of abscess DVT (deep venous thrombosis) Arthritis Low back pain Diabetes Elevated cholesterol Colon polyps Mccormack esophagus Bronchial asthma HTN (hypertension) Polycythemia Current use of anticoagulant therapy Surgical History S/P aortogram History of esophagogastroduodenoscopy (EGD) Previous back surgery Hx of colonoscopy History of hysterectomy History of delivery History of appendectomy History of cholecystectomy Family History Father Heart disease Afib Heart attack Maternal Grandmother Lung cancer Maternal Grandfather Prostate CA Paternal Grandmother Heart attack Paternal Grandfather Heart attack Social History Household Members: Spouse Housing: Apartment Are you a primary resident care associate to a significant other at home: No Do you presently have visiting nurse or other home services: Yes (vna) Alcohol intake: former Comment: pt rings appropriately for assistance to bathroom Patient Tobacco Use Status: Former Tobacco user Tobacco use type: Cigarette Cigarette Packs Per Day: 1 Years Smoked: 25 Substance Use Type: Marijuana Advance Directives Date on File: 07/27/25 service: No Current occupational status: retired Physical Exam Exam Exam: Vital Signs: Last Vital Signs Pulse 98 09/09/25 16:08 BP 138/70 09/09/25 16:08 Pulse Ox 96 09/09/25 16:08 Results AMB INR Fingerstick 2 AMB INR Fingerstick 1.9 Last Edit by Rebecca Crook RN on 09/09/25 11:51 Assessment & Plan Assessment & Plan (1) Postoperative wound infection: Code(s): T81.49XA - Infection following a procedure, other surgical site, initial encounter Category: Medical Plan: as above Orders: Orders 2 IR cvc remove any age 1009/09/25 T81.49XA - Infection following a procedure, other surgical site, initial encounter Medications: New 2 levofloxacin 750 mg PO DAILY 14 tabs 0RF 14 days Coding Level of Care Code Est Pt Level 3 (29221) Diagnoses Postoperative wound infection T81.49XA
== END 2025-09-09 16:17 | disposition home or self-care (01) ==
LOC: HO.HID 15:16
PROVIDERS: PCP Internal Medicine; Visit Provider Internal Medicine
DX: T81.49XD Infection following a procedure, other surgical site, subsequent encounter (principal)
CPT/HCPCS: 99213